=== PATIENT | male | born 1945 | race Caucasian/White ===

== ENCOUNTER 2017-02-23 10:03 | Day surgery (SDC) | payer MEDICARE ==
[~2017-02-23] VITALS: Ht 172.7 cm; Wt 64.5 kg
[~2017-02-23 10:03] MED LIST: QUIN20 PO; [UNRECOGNIZED DRUG - CODE] PO
[2017-02-23 10:26] VITALS: BP 134/82; PULSE 63; RESP 20; TEMP 97.7; O2SAT 98
[2017-02-23] MEDS ORDERED: TAMS0.4C4 PO (10:35)
[2017-02-23] MEDS ORDERED: OXYC-259 PO (10:35)
[2017-02-23] MEDS ORDERED: CHOL100025 CHEW (10:35)
[2017-02-23] MEDS ORDERED: STOO100C (10:35)
[2017-02-23] MEDS ORDERED: VITA10004 PO (10:35)
[2017-02-23] MEDS ORDERED: [UNRECOGNIZED DRUG - CODE] (10:35)
[2017-02-23] MEDS ORDERED: BICA50TA PO (10:35)
[2017-02-23] MEDS ORDERED: BUPR150T12 PO (10:35)
[2017-02-23] MEDS ORDERED: OXYC1CAP PO (10:35)
[2017-02-23] MEDS ORDERED: LUMI0.01 EACH EYE (10:35)
[2017-02-23] MEDS ORDERED: TELM1TAB56 PO (10:35)
[2017-02-23] MEDS ORDERED: VIRE300T2 PO (10:35)
[2017-02-23] MEDS ORDERED: CALC500T17 PO (10:35)
[2017-02-23] MEDS ORDERED: LIDOCAINE 1%/EPINEPHrine 1:100,000 SOLN 20 ML VIAL ONE (11:46)
[2017-02-23] MEDS ORDERED: MIDAZOLAM HCL 5 MG/5 ML VIAL ONE (12:31)
[2017-02-23] MEDS ORDERED: fentaNYL CITRATE 250 MCG/5 ML AMP ONE (12:31)
[2017-02-23 13:20] VITALS: BP 109/58; PULSE 55; RESP 16; TEMP 98; O2SAT 98
[2017-02-23 13:35] VITALS: BP 115/67; PULSE 55; RESP 16; O2SAT 97
[2017-02-23 13:50] VITALS: BP 104/58; PULSE 53; RESP 18; O2SAT 94
[2017-02-23 14:20] VITALS: BP 106/64; PULSE 53; RESP 18; O2SAT 93
--- NOTE | 2017-02-23 14:43 | RADRPT ---
EXAM DATE/TIME: 02/23/2017 12:35 [place] COMPARISON: No previous studies available for comparison. The patient's outside examinations were reviewed. INDICATIONS : Pelvic bone lesion, history of prostate cancer. SEDATION TIME: 30 minutes BIOPSY SITE: Left pelvis MEDICATION(S): 1.) 3 mg midazolam (Versed) IV 2.) 150 mcg fentanyl (Sublimaze) IV DEVICE(S): 1.) Bone biopsy needle 10ga MEDICAL HISTORY : Carcinoma, prostate. Metastatic, bone. SURGICAL HISTORY : None. ENCOUNTER: Initial ACUITY: 1 day PAIN SCORE: 0/10 LOCATION: pelvis A total of two core specimen(s) were obtained and sent to the laboratory for pathologic evaluation. PROCEDURE: 1. CT guided bone deep biopsy. 2. Conscious sedation with continuous EKG and oximetry monitoring. Prior to the procedure informed consent was obtained. The patient's prior outside imaging studies wer e reviewed. Using automated exposure control and adjustment of the mA and/or kV according to patient size, radiat ion dose was kept as low as reasonably achievable to obtain optimal diagnostic quality images. The site was prepped in a sterile fashion. Full sterile technique was used, including cap, mask, zack rile gloves and gown and a large sterile sheet. Hand hygiene and 2% chlorhexidine and/or betadine/al cohol prep was utilized per protocol for cutaneous antisepsis. The skin and subcutaneous tissues wer e infiltrated with local anesthetic solution. With CT guidance the left iliac bone sclerotic lesion was localized. Biopsy was performed using the p rescribed needle as above. Adequate hemostasis was obtained with compression at the puncture site. The patient tolerated the procedure well and there were no complications. The patient was returned to the Radiology Outpatient Unit in stable condition. CONCLUSION: Uncomplicated CT guided core biopsy of a sclerotic lesion in the left posterior iliac bone. Joe Parham MD on February 23, 2017 at 14:41 Board Certified Radiologist. This report was verified electronically.
[2017-02-23 15:20] VITALS: BP 106/64; PULSE 60; RESP 16; O2SAT 98
== END 2017-02-23 15:25 | disposition home or self-care (01) ==
LOC: HRAD 10:03 → HRIP 10:07 → HRAD 15:25
PROVIDERS: ATTEND Internal Medicine Hematology & Oncology
DX: C79.51 Secondary malignant neoplasm of bone (principal); C61 Malignant neoplasm of prostate; I10 Essential (primary) hypertension
CPT/HCPCS: 20225; 77012; 88307; 88311; 88341; 88342; 99152; 99153; J2250; J3010; 88305

== ENCOUNTER 2018-07-22 10:25 | Inpatient (IN) ==
[2018-07-22] MEDS ORDERED: Sod Chloride 0.9% Inj 1,000 ML IV.SIG ONE (11:00)
--- NOTE | 2018-07-22 11:11 | ED ---
HPI General Chief complaint: Weakness Stated complaint: Fever/weakness Time Seen by Provider: 07/22/18 10:47 Source: patient and family Mode of arrival: ambulatory Limitations: no limitations History of Present Illness HPI Narrative: 73-year-old male complains of generalized malaise and weakness and fever. Patient has history of metastatic prostate cancer. Patient on chemotherapy including Xtandi and Lupron injection. Patient has intermittent hematuria. Patient self cath himself at home. Patient started having fever this morning with temperature up to 102. Patient complaining increasing generalized malaise and weakness and he felt this morning. Patient states that he has laceration to left forehead and bilateral rib pain from the fall. Patient states that he has been eating well. Patient denies any headache. Patient denies any visual change. Patient denies any neck pain. Patient complained of sharp pain bilateral rib cage area. Patient denies abdominal pain. Patient denies any nausea vomiting diarrhea. MD Complaint: generalized weakness Onset (ago): day(s) Duration: progressively worsening Location: generalized Migration: none Severity: severe Relieving factors: none Exacerbating factors: none Associated symptoms: fever/chills Related Data Home Medications Medication Instructions Recorded Confirmed bimatoprost [Lumigan] 1 drp OPHTHALMIC (EYE) QPM 07/22/18 07/22/18 bupropion HCl 150 mg PO QAM 07/22/18 07/22/18 denosumab 120 mg SUB-Q Q4W 07/22/18 07/22/18 diazepam [Valium] 5 mg PO DAILY PRN 07/22/18 07/22/18 enzalutamide 160 mg PO DAILY 07/22/18 07/22/18 gabapentin 300 mg PO TID 07/22/18 07/22/18 glucosamine-chondroitin [Osteo 2 tab PO DAILY 07/22/18 07/22/18 Bi-Flex] leuprolide (3 month) 0 mg IM [id number] 07/22/18 lubiprostone [Amitiza] 24 mcg PO BID 07/22/18 07/22/18 oxycodone 5 mg PO Q4-6H 07/22/18 07/22/18 oxycodone [OxyContin] 10 mg PO Q12H 07/22/18 07/22/18 solifenacin [Vesicare] 10 mg PO DAILY 07/22/18 07/22/18 telmisartan [Micardis] 80 mg PO DAILY 07/22/18 07/22/18 tenofovir disoproxil fumarate 300 mg PO EVERY OTHER DAY 07/22/18 07/22/18 [Viread] Allergies Allergy/AdvReac Type Severity Reaction Status Date / Time morphine Allergy Severe MORPHINE Verified 07/22/18 11:48 ALLERGY ADDED 12/19/07 @1500 - N/V Review of Systems ROS: all other systems reviewed are negative [facility] Medical History Medical History Bone cancer (Acute) FH: cholecystectomy (Acute) Hep B w/ coma, chronic, w/o delt (Acute) Hypertension (Acute) Kidney disease (Acute) Prostate cancer (Acute) Surgical History Surgical History S/P hip replacement (Acute) Social History Social History Substance History: No History of Abuse Smoking Status: Former smoker Tobacco Type: Cigarettes How Often Do You Have a Drink Containing Alcohol: Never Recent Travel in [facility] within the Last 8 Weeks: No Recent Out of Country Travel within the Last 8 Weeks: No Exam Narrative Exam Narrative: GENERAL: Well-nourished, well-developed patient. SKIN: Focused skin assessment warm/dry. HEAD: Normocephalic. 1.5 cm laceration above left eyebrow. No active bleeding. EYES: No scleral icterus. No injection or drainage. NECK: Supple, trachea midline. No JVD or lymphadenopathy. CARDIOVASCULAR: Regular rate and rhythm without murmurs, gallops, or rubs. RESPIRATORY: Breath sounds equal bilaterally. No accessory muscle use. GASTROINTESTINAL: Abdomen soft, non-tender, nondistended. MUSCULOSKELETAL: Bilateral chest wall pain on palpation. No crepitus no deformity noted. Breath sounds equal bilaterally. BACK: Nontender without obvious deformity. No CVA tenderness. Course Initial Documented Vital Signs Temperature 99.3 F 07/22/18 10:28 Pulse Rate 81 07/22/18 10:28 Respiratory Rate 20 07/22/18 10:28 Blood Pressure 110/54 L 07/22/18 10:28 Pulse Oximetry 95 07/22/18 10:28 Last Documented Vital Signs Temperature 99.3 F 07/22/18 10:28 Pulse Rate 81 07/22/18 11:24 Respiratory Rate 16 07/22/18 11:24 Blood Pressure 106/55 L 07/22/18 11:24 Pulse Oximetry 98 07/22/18 11:24 Medical Decision Making MDM Narrative Medical decision making narrative: 73-year-old male with generalized malaise and weakness. Patient has history of metastatic prostate cancer. Patient had fever this morning and failed this morning. Normal saline solution 1 L IV bolus. Cefepime 1 g IV. Calcium gluconate 1 g IV given. Medical Screen Exam Complete: Yes Emergency Medical Condition: Yes Differential Diagnosis Differential Diagnosis: Differential diagnosis including viral syndrome, dehydration, electrolyte imbalance, pneumonia, UTI, sepsis. Lab Data Lab results reviewed: Yes I reviewed the patient's lab results. Result diagrams: 07/22/18 11:16 07/22/18 11:16 Lab Results 07/22/18 07/22/18 07/22/18 Range/Units 11:16 11:16 11:16 WBC 8.0 (4.0-11.0) th/mm3 RBC 2.75 L (4.50-5.90) mil/mm3 Hgb 8.2 L (13.0-17.0) gm/dL Hct 25.3 L (39.0-51.0) % MCV 92.2 (80.0-100.0) fL MCH 29.8 (27.0-34.0) pg MCHC 32.3 (32.0-36.0) % RDW 16.5 (11.6-17.2) % Plt Count 431 (150-450) th/mm3 MPV 6.5 L (7.0-11.0) fL Neut % (Auto) 76.5 H (16.0-70.0) % Lymph % (Auto) 9.5 (9.0-44.0) % [place] % (Auto) 12.8 H (0.0-8.0) % Eos % (Auto) 0.3 (0.0-4.0) % Baso % (Auto) 0.9 (0.0-2.0) % Neut # (Auto) 6.1 (1.8-7.7) th/mm3 Lymph # (Auto) 0.8 L (1.0-4.8) th/mm3 [place] # (Auto) 1.0 H (0.0-0.9) th/mm3 Eos # (Auto) 0.0 (0.0-0.4) th/mm3 Baso # (Auto) 0.1 (0.0-0.2) th/mm3 WBC Differential . Differential Comment Auto diff final PT 11.4 (9.8-11.6) sec INR 1.1 Ratio Sodium 144 (136-145) meq/L Potassium 4.4 (3.5-5.1) meq/L Chloride 109 H (98-107) meq/L Carbon Dioxide 25.1 (21.0-32.0) meq/L Anion Gap 10 (5-15) meq/L BUN 19 H (7-18) mg/dL Creatinine 2.08 H (0.60-1.30) mg/dL Estimated GFR 31 L (>89) mL/min Random Glucose 118 H (74-106) mg/dL Lactic Acid (0.4-2.0) mmol/L Calcium 7.0 L* (8.5-10.1) mg/dL Prot Corrected Calcium 7.1 L* (8.5-10.1) mg/dL Total Bilirubin 0.4 (0.2-1.0) mg/dL AST 21 (15-37) U/L ALT 10 L (12-78) U/L Alkaline Phosphatase 92 (45-117) U/L Total Creatine Kinase 93 (39-308) U/L Total Protein 7.0 (6.4-8.2) g/dL Albumin 2.5 L (3.4-5.0) g/dL TSH 1.760 (0.358-3.740) uIU/mL Urine Color (Yellw/Straw) Urine Clarity (Clear) Urine pH (5.0-8.5) Ur Specific [place] (1.002-1.035) Urine Protein (Neg-Trace) mg/dL Urine Glucose (UA) (Negative) mg/dL Urine Ketones (Negative) mg/dL Urine Occult Blood (Negative) Urine Nitrate (Negative) Urine Bilirubin (Negative) Urine Urobilinogen (Less than 2) mg/dL Ur Leukocyte Esterase (Negative) Urine RBC (0-3) /hpf Urine WBC (0-5) /hpf Urine Bacteria (None) /hpf Urine Mucus (Occasional) /lpf Micro UA Comment Ur Microscopic Review Urine Culture Comments 07/22/18 07/22/18 Range/Units 11:16 11:49 WBC (4.0-11.0) th/mm3 RBC (4.50-5.90) mil/mm3 Hgb (13.0-17.0) gm/dL Hct (39.0-51.0) % MCV (80.0-100.0) fL MCH (27.0-34.0) pg MCHC (32.0-36.0) % RDW (11.6-17.2) % Plt Count (150-450) th/mm3 MPV (7.0-11.0) fL Neut % (Auto) (16.0-70.0) % Lymph % (Auto) (9.0-44.0) % [place] % (Auto) (0.0-8.0) % Eos % (Auto) (0.0-4.0) % Baso % (Auto) (0.0-2.0) % Neut # (Auto) (1.8-7.7) th/mm3 Lymph # (Auto) (1.0-4.8) th/mm3 [place] # (Auto) (0.0-0.9) th/mm3 Eos # (Auto) (0.0-0.4) th/mm3 Baso # (Auto) (0.0-0.2) th/mm3 WBC Differential Differential Comment PT (9.8-11.6) sec INR Ratio Sodium (136-145) meq/L Potassium (3.5-5.1) meq/L Chloride (98-107) meq/L Carbon Dioxide (21.0-32.0) meq/L Anion Gap (5-15) meq/L BUN (7-18) mg/dL Creatinine (0.60-1.30) mg/dL Estimated GFR (>89) mL/min Random Glucose (74-106) mg/dL Lactic Acid 0.9 (0.4-2.0) mmol/L Calcium (8.5-10.1) mg/dL Prot Corrected Calcium (8.5-10.1) mg/dL Total Bilirubin (0.2-1.0) mg/dL AST (15-37) U/L ALT (12-78) U/L Alkaline Phosphatase (45-117) U/L Total Creatine Kinase (39-308) U/L Total Protein (6.4-8.2) g/dL Albumin (3.4-5.0) g/dL TSH (0.358-3.740) uIU/mL Urine Color Yellow (Yellw/Straw) Urine Clarity Cloudy H (Clear) Urine pH 6.0 (5.0-8.5) Ur Specific [place] 1.011 (1.002-1.035) Urine Protein 100 H (Neg-Trace) mg/dL Urine Glucose (UA) Negative (Negative) mg/dL Urine Ketones Negative (Negative) mg/dL Urine Occult Blood Large H (Negative) Urine Nitrate Negative (Negative) Urine Bilirubin Negative (Negative) Urine Urobilinogen Less than 2 (Less than 2) mg/dL Ur Leukocyte Esterase Small H (Negative) Urine RBC (0-3) /hpf Urine WBC 31 H (0-5) /hpf Urine Bacteria Few H (None) /hpf Urine Mucus Few H (Occasional) /lpf Micro UA Comment Cath-culture ind Ur Microscopic Review Not Reportable Urine Culture Comments Cath-cult indicated Imaging Data Attestation: I personally reviewed and interpreted this imaging study as follows : Radiologist's impression: Chest X-Ray 07/22/18 11:00 CONCLUSION: The lungs are grossly clear. Sclerotic metastatic disease. Discharge Plan Discharge Disposition Patient Disposition: 30 Still Patient Discharge Details Diagnosis: Acute UTI, Prostate cancer metastatic to bone, Forehead laceration, Chest wall contusion Physicians Team ED Provider: Rhett Tellez Rxs /Orders / Referrals /Forms Prescriptions: No Action leuprolide (3 month) 11.25 mg Syringe Kit IM [id number] RF: 0 telmisartan [Micardis] 80 mg Tablet 80 mg PO DAILY RF: 0 oxycodone 5 mg Capsule 5 mg PO Q4-6H RF: 0 gabapentin 300 mg Capsule 300 mg PO TID RF: 0 tenofovir disoproxil fumarate [Viread] 300 mg Tablet 300 mg PO EVERY OTHER DAY RF: 0 diazepam [Valium] 5 mg Tablet 5 mg PO DAILY PRN (Reason: Anxiety) RF: 0 glucosamine-chondroitin [Osteo Bi-Flex] 250-200 mg Tablet 2 tab PO DAILY RF: 0 bupropion HCl 150 mg Tablet Extended Release 24 Hr 150 mg PO QAM RF: 0 solifenacin [Vesicare] 10 mg Tablet 10 mg PO DAILY RF: 0 lubiprostone [Amitiza] 24 mcg Capsule 24 mcg PO BID RF: 0 bimatoprost [Lumigan] 0.01 % Drops 1 drp OPHTHALMIC (EYE) QPM RF: 0 denosumab 120 mg/1.7 mL (70 mg/mL) Solution 120 mg SUB-Q Q4W RF: 0 enzalutamide 40 mg Capsule 160 mg PO DAILY RF: 0 oxycodone [OxyContin] 10 mg Tablet,Oral Only,Ext.Rel.12 Hr 10 mg PO Q12H RF: 0 Discharge Interventions Interventions: Vital Signs Last Done: 07/22/18 11:24 Status ED Status: With Doctor
[2018-07-22 11:35] LABS: Baso # (Auto) 0.1 th/mm3 (0.0-0.2); Baso % (Auto) 0.9 % (0.0-2.0); Eos % (Auto) 0.3 % (0.0-4.0); Hematocrit 25.3 % (39.0-51.0); Hemoglobin 8.2 gm/dL (13.0-17.0); Lymph # (Auto) 0.8 th/mm3 (1.0-4.8); Lymph % (Auto) 9.5 % (9.0-44.0); Mean Corpuscular HGB Conc 32.3 % (32.0-36.0); Mean Corpuscular Hemoglobin 29.8 pg (27.0-34.0); Mean Corpuscular Volume 92.2 fL (80.0-100.0); Mean Platelet Volume 6.5 fL (7.0-11.0); Mono % (Auto) 12.8 % (0.0-8.0); Neut # (Auto) 6.1 th/mm3 (1.8-7.7); Neut % (Auto) 76.5 % (16.0-70.0); Platelet Count 431 th/mm3 (150-450); Red Blood Count 2.75 mil/mm3 (4.50-5.90); Red Cell Distribution Width 16.5 % (11.6-17.2)
[2018-07-22 11:44] LABS: INR 1.1 Ratio; Prothrombin Time 11.4 sec (9.8-11.6)
--- NOTE | 2018-07-22 12:06 | XR ---
EXAM DATE: 07/22/2018 11:58 AM EDT AGE/SEX: 73 years / Male INDICATIONS: Left lower chest pain since falling this morning. CLINICAL DATA: This is the patient's initial encounter. Patient reports that signs and symptoms have been present for 1 day and indicates a pain score of 7/10. MEDICAL/SURGICAL HISTORY: . Pelvic bone lesion, history of prostate cancer. . COMPARISON: No prior exams available for comparison. FINDINGS: A single AP view of the chest demonstrates the lungs to be symmetrically aerated without evidence of mass, infiltrate or effusion. The cardiomediastinal contours are unremarkable. Sclerosis involving m ultiple ribs, the left coracoid process in the right humeral neck concerning for metastatic disease i n a patient with known prostate cancer. CONCLUSION: The lungs are grossly clear. Sclerotic metastatic disease. Electronically signed by: Cb Cortes MD 07/22/2018 12:05 PM EDT
[2018-07-22 12:47] LABS: Albumin 2.5 g/dL (3.4-5.0); Carbon Dioxide 25.1 meq/L (21.0-32.0); Thyroid Stimulating Hormone 1.76 uIU/mL (0.358-3.740)
[2018-07-22 12:47] LABS: Bacteria,Urine Few /hpf; Bilirubin,Urine Negative (Negative); Clarity,Urine Cloudy (Clear); Color,Urine Yellow (Yellw/Straw); Glucose,Urine (UA) Negative (Negative); Leukocyte Esterase,Urine Small (Negative); Mucus,Urine Few /lpf (Occasional); Nitrite,Urine Negative (Negative); Specific Gravity,Urine 1.011 (1.002-1.035)
[2018-07-22 12:57] LABS: Potassium 4.4 meq/L (3.5-5.1)
[2018-07-22] MEDS ORDERED: Calcium Gluconate Inj 1 GM in Dextrose 5% in Water Inj 100 ML IV.SIG ONE ×2 (13:17)
--- NOTE | 2018-07-22 14:45 | P.HPIM ---
History of Present Illness Primary Care Physician: Marcelo Cote MD Chief Complaint: generalized weakness History of Present Illness: patient is a 73 y/o male with history of prostate cancer, hypertension who presented to ER with generalized weakness. information was obtained from the family at the bedside. he's under the care of and currently receiving chemotherapy. reportedly he had some hematuria few weeks ago. he was seen by his urologist and had palacios catheter for about a week. hematuria resolved and he started to do intermittent self-catheterization. he started to have intermittent gross hematuria about a week ago again. he's had some suprapubic pain. he had worsening generalized weakness and reportedly had a fall last night. he had a fever this morning and had some chills over night.he had on and off confusional episodes over the past couple of days. Inpatient Certification: I certify that the inpatient services were ordered in accordance with Medicare regulations governing the order. This includes certification that hospital inpatient services are reasonable and necessary and in the case of services not specified as inpatient-only under 42 CFR 419.22(n), that they are appropriately provided as inpatient services in accordance to with the 2-midnight benchmark under 43 CFR 412.3(e) Estimated Total Length of Stay (Days): 2 Plans for Post Hospital Care: Home Review of Systems All other systems reviewed negative except as stated in HPI PMFSH - History History Provided By: Patient - Medical History Medical History: Medical History (Last Reviewed 07/22/18 @ 14:36 by Johnie Lawson MD) Bone cancer FH: cholecystectomy Hep B w/ coma, chronic, w/o delt Hypertension Kidney disease Prostate cancer - Surgical History Surgical History: Surgical History (Last Reviewed 07/22/18 @ 14:36 by Johnie Lawson MD) S/P hip replacement - Family History Family History: Family History (Last Reviewed 07/22/18 @ 14:36 by Johnie Lawson MD) Other Family history of cancer - Tobacco History Smoking Status: Former smoker Tobacco Type: Cigarettes - Alcohol History How Often Do You Have a Drink Containing Alcohol: Never - Substance Use History Substance History: No History of Abuse - Travel History Recent Travel in the [place] Within the Last 8 Weeks: No Recent Travel Out of the Country Within the Last 8 Weeks: No - Immunization History Tetanus Immunization: Unsure Hx Influenza Vaccine This Season: Yes Medications and Allergies Active Medications: Active Medications Acetaminophen (Tylenol) 650 mg PO Q4H PRN PRN Reason: fever/pain Bupropion HCl (Wellbutrin Xl) 150 mg PO DAILY [place] Diazepam (Valium) 5 mg PO DAILY PRN PRN Reason: Anxiety Gabapentin (Neurontin) 300 mg PO TID [facility] Sodium Chloride (Ns Inj) 1,000 mls @ 84 mls/hr IV.CONT .[id number] [place] Cefepime HCl 1,000 mg/ Sodium (Chloride) 100 mls @ 200 mls/hr IV.SIG DAILY [facility] Non-Formulary Medication (Telmisartan [Micardis]) 80 mg PO DAILY [facility] Non-Formulary Medication (Bimatoprost [Lumigan]) 1 drp EACH EYE QPM [facility] Non-Formulary Medication (Lubiprostone [Amitiza]) 24 mcg PO BID [facility] Oxycodone HCl (Oxycontin Cr) 10 mg PO Q12H [facility] Tenofovir Disoproxil Fumarate (Viread) 300 mg PO EVERY OTHER DAY [facility] Allergies Allergy/AdvReac Type Severity Reaction Status Date / Time morphine Allergy Severe MORPHINE Verified 07/22/18 11:48 ALLERGY ADDED 12/19/07 @1500 - N/V Home Medications Medication Instructions Recorded Confirmed Type bimatoprost [Lumigan] 1 drp OPHTHALMIC (EYE) QPM 07/22/18 07/22/18 History bupropion HCl 150 mg PO QAM 07/22/18 07/22/18 History denosumab 120 mg SUB-Q Q4W 07/22/18 07/22/18 History diazepam [Valium] 5 mg PO DAILY PRN 07/22/18 07/22/18 History enzalutamide 160 mg PO DAILY 07/22/18 07/22/18 History gabapentin 300 mg PO TID 07/22/18 07/22/18 History glucosamine-chondroitin [Osteo 2 tab PO DAILY 07/22/18 07/22/18 History Bi-Flex] leuprolide (3 month) 0 mg IM [id number] 07/22/18 History lubiprostone [Amitiza] 24 mcg PO BID 07/22/18 07/22/18 History oxycodone 5 mg PO Q4-6H 07/22/18 07/22/18 History oxycodone [OxyContin] 10 mg PO Q12H 07/22/18 07/22/18 History solifenacin [Vesicare] 10 mg PO DAILY 07/22/18 07/22/18 History telmisartan [Micardis] 80 mg PO DAILY 07/22/18 07/22/18 History tenofovir disoproxil fumarate 300 mg PO EVERY OTHER DAY 07/22/18 07/22/18 History [Viread] Exam Vital signs: Vital Signs 07/22/18 10:28 07/22/18 11:24 Temperature 99.3 F Pulse Rate 81 81 Respiratory Rate 20 16 Blood Pressure 110/54 L 106/55 L Pulse Oximetry 95 95 Intake & Output 07/21/18 07/22/18 07/22/18 18:59 06:59 18:59 Weight 81.647 kg - Constitutional no acute distress - Routine HEENT Exam Head: Present: laceration (left forehead) - Routine Neck Exam Present: full ROM - Routine Respiratory Exam Present: CTA bilaterally - Routine Cardiovascular Exam Present: RRR - Routine Abdominal Exam Present: soft - Routine Extremities Exam Comments: no pedal edema. - Routine Neurological Exam Present: alert, oriented X3 Results - Labs CBC & Chem 7: 07/22/18 11:16 07/22/18 11:16 Labs: Short CBC 07/22/18 Range/Units 11:16 WBC 8.0 (4.0-11.0) th/mm3 Hgb 8.2 L (13.0-17.0) gm/dL Hct 25.3 L (39.0-51.0) % Plt Count 431 (150-450) th/mm3 BMP 07/22/18 11:16 Sodium 144 Potassium 4.4 Chloride 109 H Carbon Dioxide 25.1 BUN 19 H Creatinine 2.08 H Calcium 7.0 L* Cardiac Enzymes 07/22/18 Range/Units 11:16 Total Creatine Kinase 93 (39-308) U/L Liver Function 07/22/18 Range/Units 11:16 Total Bilirubin 0.4 (0.2-1.0) mg/dL AST 21 (15-37) U/L ALT 10 L (12-78) U/L Alkaline Phosphatase 92 (45-117) U/L Albumin 2.5 L (3.4-5.0) g/dL Urine 07/22/18 Range/Units 11:49 Urine Color Yellow (Yellw/Straw) Urine Clarity Cloudy H (Clear) Urine pH 6.0 (5.0-8.5) Ur Specific [place] 1.011 (1.002-1.035) Urine Protein 100 H (Neg-Trace) mg/dL Urine Glucose (UA) Negative (Negative) mg/dL - Imaging Impressions Chest X-Ray 07/22/18 11:00 CONCLUSION: The lungs are grossly clear. Sclerotic metastatic disease. Caprini VTE Risk Assessment Caprini VTE Risk Assessment: Moderate/High Risk (score >= 2) Caprini Risk Assessment Model: Point Value = 1 Point Value = 2 Point Value = 3 Point Value = 5 Age 41-60 Minor surgery BMI > 25 kg/m2 Swollen legs Varicose veins or History of unexplained or recurrent spontaneous Oral contraceptives or hormone replacement Sepsis (< 1 month) Serious lung disease, including pneumonia (< 1 month) Abnormal pulmonary function Acute myocardial infarction Congestive heart failure (< 1 month) History of inflammatory bowel disease Medical patient at bed rest Age 61-74 Arthroscopic surgery Major open surgery (> 45 min) Laparoscopic surgery (> 45 min) Malignancy Confined to bed (> 72 hours) Immobilizing plaster cast Central venous access Age >= 75 History of VTE Family history of VTE Factor V Leiden Prothrombin [id number] Lupus anticoagulant Anticardiolipin antibodies Elevated serum homocysteine Heparin-induced thrombocytopenia Other congenital or acquired thrombophilia Stroke (< 1 month) Elective arthroplasty Hip, pelvis, or leg fracture Acute spinal cord injury (< 1 month) Prophylaxis Regimen: Total Risk Factor Score Risk Level Prophylaxis Regimen 0-1 Low Early ambulation 2 Moderate Order ONE of the following: *Sequential Compression Device (SCD) *Heparin 5000 units SQ BID 3-4 Higher Order ONE of the following medications: *Heparin 5000 units SQ TID *Enoxaparin/Lovenox 40 mg SQ daily (WT < 150 kg, CrCl > 30 mL/min) *Enoxaparin/Lovenox 30 mg SQ daily (WT < 150 kg, CrCl > 10-29 mL/min) *Enoxaparin/Lovenox 30 mg SQ BID (WT < 150 kg, CrCl > 30 mL/min) AND/OR *Sequential Compression Device (SCD) 5 or more Highest Order ONE of the following medications: *Heparin 5000 units SQ TID (Preferred with Epidurals) *Enoxaparin/Lovenox 40 mg SQ daily (WT < 150 kg, CrCl > 30 mL/min) *Enoxaparin/Lovenox 30 mg SQ daily (WT < 150 kg, CrCl > 10-29 mL/min) *Enoxaparin/Lovenox 30 mg SQ BID (WT < 150 kg, CrCl > 30 mL/min) AND *Sequential Compression Device (SCD) Assessment and Plan - Plan A/P - UTI/ Hematuria with history of prostate cancer continue with broad-spectrum IV antibiotics- hold antineoplastic agents for now- will follow the blood cultures and adjust the antibiotic regimen accordingly. will insert palacios cath for now. -Hypocalcemia; received IV calcium in ER- will monitor. -generalized weakness/ fall with laceration on left forehead; routine wound care -consult PT. -metastatic prostate cancer- continue pain control with long / and short-acting narcotics. -hypertension; resume home meds. -anemia- due to chemo- will monitor. -CKD- start on gentle IV hydration and repeat BMP tomorrow. -DVT prophylaxis with subq Heparin. Discussed Condition With: ER physician, the patient and family.
[2018-07-22] MEDS ORDERED: oxyCODONE 10 MG Controlled Release Tablet PO SCH (15:00)
[2018-07-22] MEDS: buPROPion 150 MG XL 24 HR Tablet PO SCH (15:28)
[2018-07-22] MEDS: Sod Chloride 0.9% Inj 1,000 ML IV.CONT SCH (18:16)
[2018-07-22] MEDS ORDERED: Acetaminophen 325 MG Tablet PO PRN (19:00)
[2018-07-22] MEDS: Gabapentin 300 MG Capsule PO SCH (20:44)
[2018-07-22] MEDS: Heparin - SQ 10,000 UNITS/ML Vial SQ SCH (20:44)
[2018-07-22] MEDS: Latanoprost 0.005% Opth Drops 2.5 ML Bottle EACH EYE SCH (20:49)
[2018-07-22] MEDS ORDERED: LUBIPROSTONE 24 MCG PO SCH (21:00)
[2018-07-22] MEDS: oxyCODONE 10 MG Controlled Release Tablet PO SCH (22:39)
[2018-07-23] MEDS: Acetaminophen 325 MG Tablet PO PRN ×2 (03:40→15:56)
[2018-07-23] MEDS: Sod Chloride 0.9% Inj 1,000 ML IV.CONT SCH ×2 (03:45→14:17)
[2018-07-23 08:06] LABS: Hematocrit 24.2 % (39.0-51.0); Hemoglobin 7.9 gm/dL (13.0-17.0); Mean Corpuscular HGB Conc 32.6 % (32.0-36.0); Mean Corpuscular Hemoglobin 29.9 pg (27.0-34.0); Mean Corpuscular Volume 91.9 fL (80.0-100.0); Mean Platelet Volume 6.4 fL (7.0-11.0); Platelet Count 384 th/mm3 (150-450); Red Blood Count 2.63 mil/mm3 (4.50-5.90); Red Cell Distribution Width 15.9 % (11.6-17.2)
[2018-07-23] MEDS: Heparin - SQ 10,000 UNITS/ML Vial SQ SCH ×2 (08:22→20:41)
[2018-07-23] MEDS: buPROPion 150 MG XL 24 HR Tablet PO SCH (08:22)
[2018-07-23] MEDS: Gabapentin 300 MG Capsule PO SCH ×3 (08:22→20:41)
[2018-07-23 08:39] LABS: Calcium 6.6 mg/dL (8.5-10.1); Carbon Dioxide 24.4 meq/L (21.0-32.0); Potassium 3.7 meq/L (3.5-5.1)
[2018-07-23 08:55] LABS: Total Protein 6.1 g/dL (6.4-8.2)
[2018-07-23] MEDS: oxyCODONE 10 MG Controlled Release Tablet PO SCH ×2 (09:29→21:00)
--- NOTE | 2018-07-23 12:28 | ECG ---
Date Performed: 07/22/2018 Time Performed: 11:56:15 PTAGE: 73 years EKG: Sinus rhythm LOW QRS VOLTAGE IN PRECORDIAL LEADS INCOMPLETE RIGHT BUNDLE BRANCH BLOCK LEFT ANTERIOR FASCICULAR BL OCK POSSIBLE ANTERIOR MYOCARDIAL INFARCTION ABNORMAL ECG PREVIOUS TRACING 12/17/2007 05.31 Since the previous tracing, no significant change noted DOCTOR: Silas Schilling Interpretating Date/Time 07/23/2018 12:28:20
--- NOTE | 2018-07-23 13:40 | P.PN ---
Subjective Interval history: t mazx 101.2 early this am seen with at bedside - patient apprently ahving fever for 2 weeks intermittentlu - persitent hematuria- -doing self intermittent cathetrization feels fatigued and tired, no energy Physical Exam Vital signs: Vital Signs 07/22/18 14:47 07/22/18 17:57 07/22/18 20:00 Temperature 98.9 F Pulse Rate 78 59 L 67 Respiratory Rate 18 16 Blood Pressure 110/70 113/56 L Pulse Oximetry 99 96 07/22/18 20:40 07/22/18 21:51 07/22/18 23:09 Temperature 98.1 F Pulse Rate 68 Respiratory Rate 18 17 16 Blood Pressure 118/63 Pulse Oximetry 96 07/23/18 00:00 07/23/18 00:35 07/23/18 03:30 Temperature 98.6 F 101.2 F H Pulse Rate 67 68 81 Respiratory Rate 17 19 Blood Pressure 130/70 145/70 H Pulse Oximetry 97 96 07/23/18 04:00 07/23/18 04:01 07/23/18 04:58 Temperature Pulse Rate 77 Respiratory Rate 16 15 Blood Pressure Pulse Oximetry 07/23/18 06:00 07/23/18 08:00 Temperature 98.1 F 99.3 F Pulse Rate 87 Respiratory Rate 18 Blood Pressure 130/71 Pulse Oximetry 99 Intake & Output 07/22/18 07/23/18 07/23/18 18:59 06:59 18:59 Intake Total 1570 / 1570 1710 / 1710 Output Total 1949 / 1949 Balance 1570 / 1570 -240 / -240 Weight 84.1 kg 85.4 kg Intake: IV 1210 / 1210 990 / 990 NS Inj 1,000 ML @ 84 mls/hr IV. 990 / 990 CONT .[id number] [facility] Rx#:[id number] Calcium Gluconate Inj 1 GM In 110 / 110 D5W Inj 100 ML @ 110 mls/hr IV. SIG ONCE ONE Rx#:[id number] Maxipime Inj 1,000 MG In NS Inj 100 / 100 100 ML @ 200 mls/hr IV.SIG ONCE ONE Rx#:[id number] NS Inj 1,000 ML @ Wide Open IV. 1000 / 1000 SIG BOLUS ONE Rx#:[id number] Oral 360 / 360 720 / 720 Output: Urine 1950 / 1950 Other: Date of Last Bowel Movement 07/21/18 07/21/18 07/21/18 Weight On Admission 83.915 kg Narrative: awake and alert, no acute distress anicteric lungs- clear regular rhythm abdomen soft, nontender extremities trace rpetibvial edema - Urinary Catheter Management Indwelling Urethral Catheter Cath placed during this visit: yes Reason for continuing: Gross Hematuria Insertion date: 07/22/18 Insertion time: 16:50 Results - Labs CBC & Chem 7: 07/24/18 06:01 07/24/18 06:01 Laboratory Results - last 24 hr 07/22/18 07/23/18 07/23/18 11:49 07:40 07:40 WBC 7.0 RBC 2.63 L Hgb 7.9 L Hct 24.2 L MCV 91.9 MCH 29.9 MCHC 32.6 RDW 15.9 Plt Count 384 MPV 6.4 L Sodium 145 Potassium 3.7 Chloride 112 H Carbon Dioxide 24.4 Anion Gap 9 BUN 18 Creatinine 1.78 H Estimated GFR 37 L Random Glucose 108 H Calcium 6.6 L* Prot Corrected Calcium 7.1 L* Total Protein 6.1 L D Urine Color Yellow Urine Clarity Cloudy H Urine pH 6.0 Ur Specific [place] 1.011 Urine Protein 100 H Urine Glucose (UA) Negative Urine Ketones Negative Urine Occult Blood Large H Urine Nitrate Negative Urine Bilirubin Negative Urine Urobilinogen Less than 2 Ur Leukocyte Esterase Small H Urine RBC Urine WBC 31 H Urine Bacteria Few H Urine Mucus Few H Micro UA Comment Cath-culture ind Urine Culture Comments Cath-cult indicated Microbiology 07/22/18 11:49 Catheterized Urine Urine Culture - Preliminary Staphylococcus coag negative 07/22/18 11:16 Blood - Peripheral Aerobic Blood Culture - Preliminary No growth in 1 day 07/22/18 11:16 Blood - Peripheral Anaerobic Blood Culture - Preliminary No growth in 1 day 07/22/18 11:00 Blood - Peripheral Aerobic Blood Culture - Preliminary No growth in 1 day 07/22/18 11:00 Blood - Peripheral Anaerobic Blood Culture - Preliminary No growth in 1 day Assessment and Plan - Plan 73 years old male UTI/ Persistent Hematuria with history of metastatic prostate cancer- cathetr related - t max 102 - per family peristent hematuria- with clots- had cyustoscopy int he past - get renal ultrasound continue with broad-spectrum IV antibiotics- hold antineoplastic agents for now- will follow the blood cultures and adjust the antibiotic regimen accordingly. - palacios placed - consult his oncologist in am- Dr. Gant - Urology consult -with persitent hematuria- and patient wants another opinion - keep palacios for now Generalized weakness Anemia- symptomatic- multifactorial- acute on chronic -get iron studies - give 1 unit today - consult Dr. gant in am GENI- pre renal r/o udnerlying CKI from prostate cancer - continue gentle hydration - ff BMP - [facility] bladder, kidney US Hypocalcemia; received IV calcium in ER- will monitor. -generalized weakness/ fall with laceration on left forehead; routine wound care -consult PT. -hypertension; resume home meds. Discussed Condition With:
[2018-07-23 16:40] LABS: % Iron Saturation 7.3 % (20-50)
--- NOTE | 2018-07-23 17:22 | US ---
EXAM DATE: 07/23/2018 5:10 PM EDT AGE/SEX: 73 years / Male INDICATIONS: Hematuria with urinary tract infection. CLINICAL DATA: This is the patient's initial encounter. Patient reports that signs and symptoms have been present for 4 - 6 days and indicates a pain score of 2/10. MEDICAL/SURGICAL HISTORY: Carcinoma, prostatic. Hypertension. Hepatitis B. Bone cancer. Kidn ey disease. Cholecystectomy. Hip replacement. COMPARISON: [facility], CT ABDOMEN AND PELVIS W/O CONTRAST, 02/16/2017. . MEASUREMENTS: Right Kidney:__11.3 x 5.2 x 6.2 cm Left Kidney:__9.8 x 5.6 x 5.6 cm FINDINGS: Right Kidney: Normal echotexture and cortical thickness. No mass. Mild hydronephrosis Left Kidney: Mild hydronephrosis of the left kidney. No solid mass. Bladder: Extensive debris within the bladder presumably blood. Other: None. CONCLUSION: 1. Significant debris within the bladder likely blood. Mild bilateral hydronephrosis left greater th an right. Electronically signed by: Cb Cortes MD 07/23/2018 5:20 PM EDT
[2018-07-23] MEDS: Latanoprost 0.005% Opth Drops 2.5 ML Bottle EACH EYE SCH (20:41)
[2018-07-24] MEDS: Acetaminophen 325 MG Tablet PO PRN ×2 (00:18→14:39)
[2018-07-24] MEDS: Sod Chloride 0.9% Inj 1,000 ML IV.CONT SCH ×2 (04:20→19:13)
[2018-07-24 06:48] LABS: Baso % (Auto) 0.4 % (0.0-2.0); Eos # (Auto) 0.2 th/mm3 (0.0-0.4); Eos % (Auto) 3.1 % (0.0-4.0); Hematocrit 27.2 % (39.0-51.0); Hemoglobin 8.9 gm/dL (13.0-17.0); Lymph # (Auto) 0.8 th/mm3 (1.0-4.8); Mean Corpuscular HGB Conc 32.8 % (32.0-36.0); Mean Corpuscular Hemoglobin 30.4 pg (27.0-34.0); Mean Corpuscular Volume 92.6 fL (80.0-100.0); Mean Platelet Volume 6.6 fL (7.0-11.0); Mono # (Auto) 0.7 th/mm3 (0.0-0.9); Mono % (Auto) 12.6 % (0.0-8.0); Neut # (Auto) 3.8 th/mm3 (1.8-7.7); Neut % (Auto) 69.9 % (16.0-70.0); Platelet Count 367 th/mm3 (150-450); Red Blood Count 2.93 mil/mm3 (4.50-5.90); Red Cell Distribution Width 15.8 % (11.6-17.2); White Blood Count 5.5 th/mm3 (4.0-11.0)
--- NOTE | 2018-07-24 08:06 | P.PN ---
Subjective Interval history: no complains palacios in place- draining clear yellow urine no pain complain feeling better no reported melena, black or blood stools- no bm for 3 days- yest+ flatus T max 101/9 + flatus no nausea or vomiting Physical Exam Vital signs: Vital Signs 07/23/18 16:00 07/23/18 17:02 07/23/18 20:00 Temperature 101.2 F H 99.7 F H Pulse Rate 91 H 65 Respiratory Rate 18 Blood Pressure 132/72 Pulse Oximetry 99 07/23/18 20:52 07/23/18 21:05 07/23/18 22:06 Temperature 98.2 F 98.5 F Pulse Rate 66 66 Respiratory Rate 17 18 16 Blood Pressure 114/60 118/67 Pulse Oximetry 96 98 07/23/18 22:45 07/24/18 00:00 07/24/18 00:08 Temperature 99.9 F H Pulse Rate 69 72 Respiratory Rate 16 19 Blood Pressure 126/64 Pulse Oximetry 96 07/24/18 01:22 07/24/18 03:18 07/24/18 04:14 Temperature 99.1 F Pulse Rate 60 Respiratory Rate 16 17 16 Blood Pressure 122/62 Pulse Oximetry 97 07/24/18 04:15 07/24/18 06:46 07/24/18 07:00 Temperature Pulse Rate 60 62 Respiratory Rate 15 Blood Pressure Pulse Oximetry Intake & Output 07/23/18 07/24/18 07/24/18 18:59 06:59 18:59 Intake Total 2140 / 2140 880 / 880 Output Total 1650 / 1650 1974 Balance 490 / 490 -1095 / -1095 Weight 85.3 kg Intake: IV 100 / 100 Maxipime Inj 1,000 MG In NS Inj 100 / 100 100 ML @ 200 mls/hr IV.SIG DAILY [facility] Rx#:[id number] Oral 2039 480 / 480 Intake (Blood Product) Amt 400 / 400 Rbc As-3 Leukoreduced Unit 400 / 400 [id number] Output: Urine 1650 / 1650 1974 Other: Date of Last Bowel Movement 07/21/18 07/21/18 - Urinary Catheter Management Indwelling Urethral Catheter Cath placed during this visit: yes Reason for continuing: Gross Hematuria Insertion date: 07/22/18 Insertion time: 16:50 Results - Labs CBC & Chem 7: 07/24/18 06:01 07/24/18 06:01 Laboratory Results - last 24 hr 07/22/18 07/23/18 07/23/18 11:49 07:40 07:40 WBC 7.0 RBC 2.63 L Hgb 7.9 L Hct 24.2 L MCV 91.9 MCH 29.9 MCHC 32.6 RDW 15.9 Plt Count 384 MPV 6.4 L Neut % (Auto) Lymph % (Auto) [place] % (Auto) Eos % (Auto) Baso % (Auto) Neut # (Auto) Lymph # (Auto) [place] # (Auto) Eos # (Auto) Baso # (Auto) WBC Differential Differential Comment Sodium 145 Potassium 3.7 Chloride 112 H Carbon Dioxide 24.4 Anion Gap 9 BUN 18 Creatinine 1.78 H Estimated GFR 37 L Random Glucose 108 H Calcium 6.6 L* Prot Corrected Calcium 7.1 L* Iron TIBC % Saturation Ferritin Total Protein 6.1 L D Urine Color Yellow Urine Clarity Cloudy H Urine pH 6.0 Ur Specific [place] 1.011 Urine Protein 100 H Urine Glucose (UA) Negative Urine Ketones Negative Urine Occult Blood Large H Urine Nitrate Negative Urine Bilirubin Negative Urine Urobilinogen Less than 2 Ur Leukocyte Esterase Small H Urine RBC Urine WBC 31 H Urine Bacteria Few H Urine Mucus Few H Micro UA Comment Cath-culture ind Urine Culture Comments Cath-cult indicated Blood Type Antibody Screen MTS Gel Crossmatch Bld Prod Order Comment 07/23/18 07/23/18 07/24/18 07:40 16:15 06:01 WBC 5.5 RBC 2.93 L Hgb 8.9 L Hct 27.2 L MCV 92.6 MCH 30.4 MCHC 32.8 RDW 15.8 Plt Count 367 MPV 6.6 L Neut % (Auto) 69.9 Lymph % (Auto) 14.0 [place] % (Auto) 12.6 H Eos % (Auto) 3.1 Baso % (Auto) 0.4 Neut # (Auto) 3.8 Lymph # (Auto) 0.8 L [place] # (Auto) 0.7 Eos # (Auto) 0.2 Baso # (Auto) 0.0 WBC Differential . Differential Comment Auto diff final Sodium Potassium Chloride Carbon Dioxide Anion Gap BUN Creatinine Estimated GFR Random Glucose Calcium Prot Corrected Calcium Iron 18 L TIBC 245 L % Saturation 7.3 L Ferritin 269 Total Protein Urine Color Urine Clarity Urine pH Ur Specific [place] Urine Protein Urine Glucose (UA) Urine Ketones Urine Occult Blood Urine Nitrate Urine Bilirubin Urine Urobilinogen Ur Leukocyte Esterase Urine RBC Urine WBC Urine Bacteria Urine Mucus Micro UA Comment Urine Culture Comments Blood Type A Positive Antibody Screen Negative MTS Gel Crossmatch See Detail Bld Prod Order Comment Microbiology 07/22/18 11:49 Catheterized Urine Urine Culture - Preliminary Staphylococcus coag negative 07/22/18 11:16 Blood - Peripheral Aerobic Blood Culture - Preliminary No growth in 1 day 07/22/18 11:16 Blood - Peripheral Anaerobic Blood Culture - Preliminary No growth in 1 day 07/22/18 11:00 Blood - Peripheral Aerobic Blood Culture - Preliminary No growth in 1 day 07/22/18 11:00 Blood - Peripheral Anaerobic Blood Culture - Preliminary No growth in 1 day - Imaging Impressions Abdomen/Bladder Ultrasound 07/23/18 00:00 CONCLUSION: 1. Significant debris within the bladder likely blood. Mild bilateral hydronephrosis left greater than right. Assessment and Plan - Plan 73 years old male UTI/ Persistent Hematuria with history of metastatic prostate cancer- catheter related Bilateral hydronephrosis on US- L > R with blood debris on bladder - t max 101.9 - per family persistent hematuria- with clots- had cystoscopy int he past continue with broad-spectrum IV antibiotics- hold antineoplastic agents for now- will follow the blood cultures and adjust the antibiotic regimen accordingly. - palacios placed- now draining clear urine - consult his oncologist Dr. Gant - Urology consult -with persistent hematuria- and patient wants another opinion - keep palacios for now- now draining grossly clear urine Generalized weakness - PT consult - Out of bed to chair Anemia- symptomatic- multifactorial- acute on chronic -get iron studies- suggestion of chronic disease - S/P give 1 unit 07/23 - H and H up - consult Dr. gant GENI- pre renal likely with udnerlying CKI from prostate cancer - continue gentle hydration - ff BMP - US with bilateral hydronephrosis L > R with blood debris in bladder Hypocalcemia; received IV calcium in ER- will monitor. - start Oscal 400 mg po bid - get Vit D levels generalized weakness/ fall with laceration on left forehead; routine wound care -hypertension; resume home meds. PT consult TEDs Out of bed to chair Discussed Condition With: patient
[2018-07-24 08:07] LABS: Calcium 6.7 mg/dL (8.5-10.1); Potassium 3.6 meq/L (3.5-5.1)
[2018-07-24] MEDS: Heparin - SQ 10,000 UNITS/ML Vial SQ SCH ×2 (08:26→21:19)
[2018-07-24] MEDS: buPROPion 150 MG XL 24 HR Tablet PO SCH (08:26)
[2018-07-24 08:27] LABS: Total Protein 6.3 g/dL (6.4-8.2)
[2018-07-24] MEDS: Tenofovir 300 MG Tablet PO SCH (08:27)
[2018-07-24] MEDS: Gabapentin 300 MG Capsule PO SCH ×2 (08:27→21:21)
[2018-07-24] MEDS ORDERED: Calcium Carbonate 500 MG Tablet PO SCH (09:00)
[2018-07-24] MEDS ORDERED: GLUCOSAMINE CHONDROITIN PO SCH (10:30)
[2018-07-24] MEDS ORDERED: OXYCODONE 5 MG PO SCH (10:30)
[2018-07-24] MEDS: oxyCODONE 10 MG Controlled Release Tablet PO SCH ×2 (10:43→21:20)
[2018-07-24] MEDS: Folic Acid 1 MG Tablet PO SCH (11:52)
[2018-07-24] MEDS: Docusate Sodium 100 MG Capsule PO SCH ×2 (11:52→21:21)
[2018-07-24] MEDS: Tolterodine Tartrate LA 4 MG Capsule PO SCH (14:35)
--- NOTE | 2018-07-24 15:40 | P.CONURO ---
History of Present Illness Service: Urology Consult date: 07/24/18 Requesting Physician: Fabiola Hi Reason for Consult: Hematuria Primary Care Provider: Marcelo Cote MD Chief Complaint: generalized weakness History of Present Illness: Patient is a 73 y/o male with history of metastatic to the bones prostate cancer , hypertension who presented to ER with generalized weakness. He's under the care of and currently receiving Lupron, Xtandi and Zytiga. He also had radiation to pelvic bones for mets a year ago. He reports having hematuria on / off x 6weeks with clots. Saw Dr Parmar, had cysto and was told it was ok, needs to continue f/u with his oncologist. He also has h/o urinary retention x 2years and does self cath. This hematuria started a week ago. he had worsening generalized weakness also he had a fever and chills. he had on and off confusional episodes over the past couple of days that was reported on admission. Urology consulted for hematuria. Labs are stable. Cr is 1.7. UC is positive for Staph. He is on IV antbx. 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 Currently he has palacios cath and hematuria is resolving, still passing some long clots Review of Systems All other systems reviewed negative except as stated in HPI PMFSH - History History Provided By: Patient, Significant Other - Medical History Medical History: Medical History (Last Reviewed 07/24/18 @ 16:29 by Calli Gorman MD) Bone cancer FH: cholecystectomy Hep B w/ coma, chronic, w/o delt Hypertension Kidney disease Prostate cancer - Surgical History Surgical History: Surgical History (Last Reviewed 07/24/18 @ 16:29 by Calli Gorman MD) S/P hip replacement - Family History Family History: Family History (Last Reviewed 07/24/18 @ 16:29 by Calli Gorman MD) Other Family history of cancer - Tobacco History Second Hand Smoke Exposure: No Tobacco Use In Past 30 Days: No Smoking Status: Former smoker Tobacco Type: Cigarettes - Alcohol History How Often Do You Have a Drink Containing Alcohol: 2 to 4 times a month - Substance Use History Substance History: No History of Abuse - Substance Use Type Marijuana Status: Active Route Used: Inhalation Comment: medically provided to patient for pain - Travel History Recent Travel in the [place] Within the Last 8 Weeks: No Recent Travel Out of the Country Within the Last 8 Weeks: No - Immunization History Tetanus Immunization: Unsure Hx Influenza Vaccine This Season: Yes Medications and Allergies Active Medications: Active Medications Acetaminophen (Tylenol) 650 mg PO Q4H PRN PRN Reason: fever Last Admin: 07/24/18 14:39 Dose: 650 mg Bupropion HCl (Wellbutrin Xl) 150 mg PO DAILY [facility] Last Admin: 07/24/18 08:26 Dose: 150 mg Diazepam (Valium) 5 mg PO DAILY PRN PRN Reason: Anxiety Docusate Sodium (Colace) 100 mg PO BID [facility] Last Admin: 07/24/18 11:52 Dose: 100 mg Folic Acid (Folic Acid) 1 mg PO DAILY [facility] Last Admin: 07/24/18 11:52 Dose: 1 mg Gabapentin (Neurontin) 300 mg PO BID [facility] Last Admin: 07/24/18 08:27 Dose: 300 mg Heparin Sodium (Porcine) (Heparin Inj) 5,000 units SQ Q12HR [facility] Last Admin: 07/24/18 08:26 Dose: 5,000 units Sodium Chloride (Ns Inj) 1,000 mls @ 70 mls/hr IV.CONT .[id number] [facility] Last Admin: 07/24/18 04:20 Dose: 84 mls/hr Cefepime HCl 1,000 mg/ Sodium (Chloride) 100 mls @ 200 mls/hr IV.SIG DAILY [facility] Last Infusion: 07/24/18 08:56 Dose: Infused Latanoprost (Xalatan 0.005% Opth Drops) 1 drop EACH EYE HS [facility] Last Admin: 07/23/18 20:41 Dose: 1 drop Losartan Potassium (Cozaar) 100 mg PO DAILY [facility] Last Admin: 07/24/18 08:26 Dose: 100 mg Oxycodone HCl (Roxicodone) 5 mg PO Q4H PRN PRN Reason: breakthrough pain Last Admin: 07/24/18 14:36 Dose: 5 mg Oxycodone HCl (Oxycontin Cr) 10 mg PO Q12H [facility] Last Admin: 07/24/18 10:43 Dose: 10 mg Pom: (Lubiprostone [ (Amitiza] 24 Mcg)) 0 each PO BID [facility] Tenofovir Disoproxil Fumarate (Viread) 300 mg PO EVERY OTHER DAY [facility] Last Admin: 07/24/18 08:27 Dose: 300 mg Tolterodine Tartrate (Detrol La) 4 mg PO DAILY [facility] Last Admin: 07/24/18 14:35 Dose: Not Given Allergies Allergy/AdvReac Type Severity Reaction Status Date / Time morphine Allergy Severe MORPHINE Verified 07/22/18 11:48 ALLERGY ADDED 12/19/07 @1500 - N/V Home Medications Medication Instructions Recorded Confirmed Type bimatoprost [Lumigan] 1 drp OPHTHALMIC (EYE) QPM 07/22/18 07/22/18 History bupropion HCl 150 mg PO QAM 07/22/18 07/22/18 History denosumab 120 mg SUB-Q Q4W 07/22/18 07/22/18 History diazepam [Valium] 5 mg PO DAILY PRN 07/22/18 07/22/18 History docusate sodium [Colace] 100 mg PO BID 07/22/18 07/22/18 History enzalutamide 160 mg PO DAILY 07/22/18 07/22/18 History folic acid 0.4 mg PO DAILY 07/22/18 07/22/18 History gabapentin 300 mg PO BID 07/22/18 07/22/18 History glucosamine-chondroitin [Osteo 2 tab PO DAILY 07/22/18 07/22/18 History Bi-Flex] leuprolide (3 month) 0 mg IM [id number] 07/22/18 07/22/18 History lubiprostone [Amitiza] 24 mcg PO BID 07/22/18 07/22/18 History oxycodone 5 mg PO Q4-6H 07/22/18 07/22/18 History oxycodone [OxyContin] 10 mg PO Q12H 07/22/18 07/22/18 History solifenacin [Vesicare] 10 mg PO DAILY 07/22/18 07/22/18 History telmisartan [Micardis] 80 mg PO DAILY 07/22/18 07/22/18 History tenofovir disoproxil fumarate 300 mg PO EVERY OTHER DAY 07/22/18 07/22/18 History [Viread] Physical Exam Vital Signs - 24 hr 07/23/18 16:00 07/23/18 17:02 07/23/18 20:00 Temperature 101.2 F H 99.7 F H Pulse Rate 91 H 65 Respiratory Rate 18 Blood Pressure 132/72 Pulse Oximetry 99 07/23/18 20:52 07/23/18 21:05 07/23/18 22:06 Temperature 98.2 F 98.5 F Pulse Rate 66 66 Respiratory Rate 17 18 16 Blood Pressure 114/60 118/67 Pulse Oximetry 96 98 07/23/18 22:45 07/24/18 00:00 07/24/18 00:08 Temperature 99.9 F H Pulse Rate 69 72 Respiratory Rate 16 19 Blood Pressure 126/64 Pulse Oximetry 96 07/24/18 01:22 07/24/18 03:18 07/24/18 04:14 Temperature 99.1 F Pulse Rate 60 Respiratory Rate 16 17 16 Blood Pressure 122/62 Pulse Oximetry 97 07/24/18 04:15 07/24/18 06:46 07/24/18 07:00 Temperature Pulse Rate 60 62 Respiratory Rate 15 Blood Pressure Pulse Oximetry 07/24/18 08:19 07/24/18 11:46 07/24/18 11:52 Temperature 98.9 F 98.8 F Pulse Rate 72 76 Respiratory Rate 18 18 18 Blood Pressure 123/83 127/74 Pulse Oximetry 96 99 07/24/18 14:42 07/24/18 15:17 Temperature 100.4 F H 101.7 F H Pulse Rate 79 Respiratory Rate 18 Blood Pressure 126/62 Pulse Oximetry 93 L Physical Exam: GENERAL: This is a well-nourished, well-developed patient, in no apparent distress. HEAD: Atraumatic. Normocephalic. CARDIOVASCULAR: Regular rate and rhythm without murmurs, gallops, or rubs. RESPIRATORY: Clear to auscultation. Breath sounds equal bilaterally. No wheezes , rales, or rhonchi. GASTROINTESTINAL: Abdomen soft, non-tender GENITOURINARY: Bladder not distended. Palacios cath in place, Urine is yellow color NEUROLOGICAL: Awake and alert. Laboratory Results - last 24 hr 07/23/18 07/23/18 07/24/18 07:40 16:15 06:01 WBC 5.5 RBC 2.93 L Hgb 8.9 L Hct 27.2 L MCV 92.6 MCH 30.4 MCHC 32.8 RDW 15.8 Plt Count 367 MPV 6.6 L Neut % (Auto) 69.9 Lymph % (Auto) 14.0 [place] % (Auto) 12.6 H Eos % (Auto) 3.1 Baso % (Auto) 0.4 Neut # (Auto) 3.8 Lymph # (Auto) 0.8 L [place] # (Auto) 0.7 Eos # (Auto) 0.2 Baso # (Auto) 0.0 WBC Differential . Differential Comment Auto diff final Sodium Potassium Chloride Carbon Dioxide Anion Gap BUN Creatinine Estimated GFR Random Glucose Calcium Prot Corrected Calcium Iron 18 L TIBC 245 L % Saturation 7.3 L Ferritin 269 Total Protein Vitamin D 25-Hydroxy Blood Type A Positive Antibody Screen Negative MTS Gel Crossmatch See Detail Bld Prod Order Comment 07/24/18 07/24/18 06:01 09:48 WBC RBC Hgb Hct MCV MCH MCHC RDW Plt Count MPV Neut % (Auto) Lymph % (Auto) [place] % (Auto) Eos % (Auto) Baso % (Auto) Neut # (Auto) Lymph # (Auto) [place] # (Auto) Eos # (Auto) Baso # (Auto) WBC Differential Differential Comment Sodium 145 Potassium 3.6 Chloride 111 H Carbon Dioxide 27.0 Anion Gap 7 BUN 19 H Creatinine 1.72 H Estimated GFR 39 L Random Glucose 101 Calcium 6.7 L* Prot Corrected Calcium 7.1 L* Iron TIBC % Saturation Ferritin Total Protein 6.3 L Vitamin D 25-Hydroxy 25.3 L Blood Type Antibody Screen MTS Gel Crossmatch Bld Prod Order Comment Microbiology 07/22/18 11:16 Aerobic Blood Culture - Preliminary Blood - Peripheral No growth in 2 days Anaerobic Blood Culture - Preliminary No growth in 2 days 07/22/18 11:00 Aerobic Blood Culture - Preliminary Blood - Peripheral No growth in 2 days Anaerobic Blood Culture - Preliminary No growth in 2 days 07/22/18 11:49 Urine Culture - Final Catheterized Urine Staphylococcus epidermidis Result Diagrams: 07/24/18 06:01 07/24/18 06:01 Imaging: ITS Impressions Chest X-Ray 07/22/18 11:00 CONCLUSION: The lungs are grossly clear. Sclerotic metastatic disease. Abdomen/Bladder Ultrasound 07/23/18 00:00 CONCLUSION: 1. Significant debris within the bladder likely blood. Mild bilateral hydronephrosis left greater than right. Assessment and Plan - Plan 73y.o M with other medical issues listed in HPI Urology consulted for hematuria, which is resolving now - Continue care as per primary team - No acute intervention needed - Hematuria can be related to self cath and UTI as well as to previous radiation. - Continue current treatment, follow ID recommendations - Manual irrigation of the bladder may help to get rid of bladder clots/debris seen in the bladder on Sono. - Pt to see his urologist after d/c for further management, may need cysto. Discussed Condition With: Dr Carina TAMAYO attending
--- NOTE | 2018-07-24 15:42 | P.CONID ---
History of Present Illness Service: ID Consult date: 07/24/18 Requesting Physician: Fabiola Hi Reason for Consult: Fevers Primary Care Provider: Marcelo Cote MD Chief Complaint: generalized weakness History of Present Illness: 73 yo male who was diagnosed with slowly growing prostate cancer in 2008 sp surgery, had seeds put in but did not have XRT He apparently was found to have metastatic cancer 2 yrs ago He has mets to bones He is on Luprone He c/o pelvic and perirectal pain x 2 mos and intermittent hematuria x 6 weeks He has fever for 6 weeks up to 102 F range He was ron to hospiutal on Tuesday sp fall He was self cathing but after admission he has palacios Abnormal UA 9pyuria, hematuria) with Staph epi in culture Temps 101.7 Also c/o constipation His T max is 101.7 No leukocytosis Review of Systems All other systems reviewed negative except as stated in HPI PMFSH - History History Provided By: Patient, Significant Other - Medical History Medical History: Medical History (Last Reviewed 07/24/18 @ 16:29 by Calli Gorman MD) Bone cancer FH: cholecystectomy Hep B w/ coma, chronic, w/o delt Hypertension Kidney disease Prostate cancer - Surgical History Surgical History: Surgical History (Last Reviewed 07/24/18 @ 16:29 by Calli Gorman MD) S/P hip replacement - Family History Family History: Family History (Last Reviewed 07/24/18 @ 16:29 by Calli Gorman MD) Other Family history of cancer - Social History I have reviewed the patient's Social History: Yes - Tobacco History Second Hand Smoke Exposure: No Tobacco Use In Past 30 Days: No Smoking Status: Former smoker Tobacco Type: Cigarettes - Alcohol History How Often Do You Have a Drink Containing Alcohol: 2 to 4 times a month - Substance Use History Substance History: No History of Abuse - Substance Use Type Marijuana Status: Active Route Used: Inhalation Comment: medically provided to patient for pain - Travel History Recent Travel in the [place] Within the Last 8 Weeks: No Recent Travel Out of the Country Within the Last 8 Weeks: No - Immunization History Tetanus Immunization: Unsure Hx Influenza Vaccine This Season: Yes Medications and Allergies Active Medications: Active Medications Acetaminophen (Tylenol) 650 mg PO Q4H PRN PRN Reason: fever Last Admin: 07/24/18 14:39 Dose: 650 mg Bupropion HCl (Wellbutrin Xl) 150 mg PO DAILY [facility] Last Admin: 07/24/18 08:26 Dose: 150 mg Diazepam (Valium) 5 mg PO DAILY PRN PRN Reason: Anxiety Docusate Sodium (Colace) 100 mg PO BID [facility] Last Admin: 07/24/18 11:52 Dose: 100 mg Folic Acid (Folic Acid) 1 mg PO DAILY [facility] Last Admin: 07/24/18 11:52 Dose: 1 mg Gabapentin (Neurontin) 300 mg PO BID [facility] Last Admin: 07/24/18 08:27 Dose: 300 mg Heparin Sodium (Porcine) (Heparin Inj) 5,000 units SQ Q12HR [facility] Last Admin: 07/24/18 08:26 Dose: 5,000 units Sodium Chloride (Ns Inj) 1,000 mls @ 70 mls/hr IV.CONT .[id number] [facility] Last Admin: 07/24/18 04:20 Dose: 84 mls/hr Cefepime HCl 1,000 mg/ Sodium (Chloride) 100 mls @ 200 mls/hr IV.SIG DAILY [facility] Last Infusion: 07/24/18 08:56 Dose: Infused Latanoprost (Xalatan 0.005% Opth Drops) 1 drop EACH EYE HS [facility] Last Admin: 07/23/18 20:41 Dose: 1 drop Losartan Potassium (Cozaar) 100 mg PO DAILY [facility] Last Admin: 07/24/18 08:26 Dose: 100 mg Oxycodone HCl (Roxicodone) 5 mg PO Q4H PRN PRN Reason: breakthrough pain Last Admin: 07/24/18 14:36 Dose: 5 mg Oxycodone HCl (Oxycontin Cr) 10 mg PO Q12H [facility] Last Admin: 07/24/18 10:43 Dose: 10 mg Pom: (Lubiprostone [ (Amitiza] 24 Mcg)) 0 each PO BID [facility] Tenofovir Disoproxil Fumarate (Viread) 300 mg PO EVERY OTHER DAY [facility] Last Admin: 07/24/18 08:27 Dose: 300 mg Tolterodine Tartrate (Detrol La) 4 mg PO DAILY [facility] Last Admin: 07/24/18 14:35 Dose: Not Given Allergies Allergy/AdvReac Type Severity Reaction Status Date / Time morphine Allergy Severe MORPHINE Verified 07/22/18 11:48 ALLERGY ADDED 12/19/07 @1500 - N/V Home Medications Medication Instructions Recorded Confirmed Type bimatoprost [Lumigan] 1 drp OPHTHALMIC (EYE) QPM 07/22/18 07/22/18 History bupropion HCl 150 mg PO QAM 07/22/18 07/22/18 History denosumab 120 mg SUB-Q Q4W 07/22/18 07/22/18 History diazepam [Valium] 5 mg PO DAILY PRN 07/22/18 07/22/18 History docusate sodium [Colace] 100 mg PO BID 07/22/18 07/22/18 History enzalutamide 160 mg PO DAILY 07/22/18 07/22/18 History folic acid 0.4 mg PO DAILY 07/22/18 07/22/18 History gabapentin 300 mg PO BID 07/22/18 07/22/18 History glucosamine-chondroitin [Osteo 2 tab PO DAILY 07/22/18 07/22/18 History Bi-Flex] leuprolide (3 month) 0 mg IM [id number] 07/22/18 07/22/18 History lubiprostone [Amitiza] 24 mcg PO BID 07/22/18 07/22/18 History oxycodone 5 mg PO Q4-6H 07/22/18 07/22/18 History oxycodone [OxyContin] 10 mg PO Q12H 07/22/18 07/22/18 History solifenacin [Vesicare] 10 mg PO DAILY 07/22/18 07/22/18 History telmisartan [Micardis] 80 mg PO DAILY 07/22/18 07/22/18 History tenofovir disoproxil fumarate 300 mg PO EVERY OTHER DAY 07/22/18 07/22/18 History [Viread] Exam Vital signs: Vital Signs 07/23/18 16:00 07/23/18 17:02 07/23/18 20:00 Temperature 101.2 F H 99.7 F H Pulse Rate 91 H 65 Respiratory Rate 18 Blood Pressure 132/72 Pulse Oximetry 99 07/23/18 20:52 07/23/18 21:05 07/23/18 22:06 Temperature 98.2 F 98.5 F Pulse Rate 66 66 Respiratory Rate 17 18 16 Blood Pressure 114/60 118/67 Pulse Oximetry 96 98 07/23/18 22:45 07/24/18 00:00 07/24/18 00:08 Temperature 99.9 F H Pulse Rate 69 72 Respiratory Rate 16 19 Blood Pressure 126/64 Pulse Oximetry 96 07/24/18 01:22 07/24/18 03:18 07/24/18 04:14 Temperature 99.1 F Pulse Rate 60 Respiratory Rate 16 17 16 Blood Pressure 122/62 Pulse Oximetry 97 07/24/18 04:15 07/24/18 06:46 07/24/18 07:00 Temperature Pulse Rate 60 62 Respiratory Rate 15 Blood Pressure Pulse Oximetry 07/24/18 08:19 07/24/18 11:46 07/24/18 11:52 Temperature 98.9 F 98.8 F Pulse Rate 72 76 Respiratory Rate 18 18 18 Blood Pressure 123/83 127/74 Pulse Oximetry 96 99 07/24/18 14:42 07/24/18 15:17 Temperature 100.4 F H 101.7 F H Pulse Rate 79 Respiratory Rate 18 Blood Pressure 126/62 Pulse Oximetry 93 L Intake & Output 07/23/18 07/24/18 07/24/18 18:59 06:59 18:59 Intake Total 2140 / 2140 880 / 880 100 / 100 Output Total 1650 / 1650 1974 Balance 490 / 490 -1095 / -1095 100 / 100 Weight 85.3 kg Intake: IV 100 / 100 100 / 100 Maxipime Inj 1,000 MG In NS Inj 100 / 100 100 / 100 100 ML @ 200 mls/hr IV.SIG DAILY [facility] Rx#:[id number] Oral 2039 / 0 480 / 480 Intake (Blood Product) Amt 400 / 400 Rbc As-3 Leukoreduced Unit 400 / 400 [id number] Output: Urine 1650 / 1650 1974 Other: Date of Last Bowel Movement 07/21/18 07/21/18 07/21/18 - Constitutional no acute distress, average body habitus - Routine HEENT Exam Head: Present: normocephalic, atraumatic Eye: Present: EOMI, PERRL, conjunctivae pink. Absent: scleral injection ENT: Present: mucous membranes moist, oropharynx clear. Absent: dentition normal - Routine Neck Exam Present: supple, full ROM. Absent: lymphadenopathy - Routine Respiratory Exam Present: CTA bilaterally. Absent: accessory muscle use, rales, respiratory distress, rhonchi - Routine Cardiovascular Exam Present: RRR, S1, S2. Absent: murmur, gallop, rubs - Routine Abdominal Exam Present: soft, normoactive bowel sounds, tenderness (LLQ ), rebound (mild), guarding. Absent: organomegaly, mass - Routine Exam Penile: Absent: swelling, erythema Scrotal: Absent: swelling, tenderness Groin: Absent: swelling, erythema Perineum Description: Intact Comments: No perirectal lesions [place] in place with significantly bloody and cloudy urine - Routine Extremities Exam Present: full ROM, normal capillary refill. Absent: cyanosis, clubbing, edema - Routine Skin Exam Present: intact, dry, warm. Absent: cyanosis, rash - Routine Neurological Exam Present: alert, oriented X3, CN II-XII intact, moving all extremities, vision grossly intact, hearing grossly intact, normal speech - Routine Psychiatric Exam Present: normal affect, normal thought process, good insight Results - Labs CBC & Chem 7: 07/24/18 06:01 07/24/18 06:01 Labs: Laboratory Results - last 24 hr 07/23/18 07/23/18 07/24/18 07:40 16:15 06:01 WBC 5.5 RBC 2.93 L Hgb 8.9 L Hct 27.2 L MCV 92.6 MCH 30.4 MCHC 32.8 RDW 15.8 Plt Count 367 MPV 6.6 L Neut % (Auto) 69.9 Lymph % (Auto) 14.0 [place] % (Auto) 12.6 H Eos % (Auto) 3.1 Baso % (Auto) 0.4 Neut # (Auto) 3.8 Lymph # (Auto) 0.8 L [place] # (Auto) 0.7 Eos # (Auto) 0.2 Baso # (Auto) 0.0 WBC Differential . Differential Comment Auto diff final Sodium Potassium Chloride Carbon Dioxide Anion Gap BUN Creatinine Estimated GFR Random Glucose Calcium Prot Corrected Calcium Iron 18 L TIBC 245 L % Saturation 7.3 L Ferritin 269 Total Protein Vitamin D 25-Hydroxy Blood Type A Positive Antibody Screen Negative MTS Gel Crossmatch See Detail Bld Prod Order Comment 07/24/18 07/24/18 06:01 09:48 WBC RBC Hgb Hct MCV MCH MCHC RDW Plt Count MPV Neut % (Auto) Lymph % (Auto) [place] % (Auto) Eos % (Auto) Baso % (Auto) Neut # (Auto) Lymph # (Auto) [place] # (Auto) Eos # (Auto) Baso # (Auto) WBC Differential Differential Comment Sodium 145 Potassium 3.6 Chloride 111 H Carbon Dioxide 27.0 Anion Gap 7 BUN 19 H Creatinine 1.72 H Estimated GFR 39 L Random Glucose 101 Calcium 6.7 L* Prot Corrected Calcium 7.1 L* Iron TIBC % Saturation Ferritin Total Protein 6.3 L Vitamin D 25-Hydroxy 25.3 L Blood Type Antibody Screen MTS Gel Crossmatch Bld Prod Order Comment - Imaging Impressions Abdomen/Bladder Ultrasound 07/23/18 00:00 CONCLUSION: 1. Significant debris within the bladder likely blood. Mild bilateral hydronephrosis left greater than right. Assessment and Plan - Plan Metastatic prostate cancer FUO (6 weeks) Hematuria Probably UTI - Staph epi not a typical pathogen GENI add levaquin CT A/P with contrast will add zosyn dc cefepime ac pt, @ b/s
[2018-07-24] MEDS ORDERED: Diatrizoate Meglum/Diatrizoate Sod Liq 9 ML UDC PO ONE (18:00)
[2018-07-24] MEDS: Piperacil/Tazo 3.375 GM Premix 50 ML IV.SIG SCH (19:13)
[2018-07-24] MEDS: Levofloxacin 500 mg Premix Inj 500 MG/100 ML PIGGYBACK IV.SIG SCH (19:57)
--- NOTE | 2018-07-24 19:59 | P.CON ---
History of Present Illness Service: Hematology/oncology Consult date: 07/24/18 Requesting Physician: Fabiola Hi Reason for Consult: Metastatic prostate cancer. Primary Care Provider: Marcelo Cote MD Chief Complaint: Fall, trauma to right side of forehead, hematuria, fevers. History of Present Illness: Mr. Queen is a 73-year-old man who is well-known to my outpatient practice, the patient has a history of metastatic prostate carcinoma with extensive bony metastatic disease. The patient has been on palliative androgen deprivation therapy with Lupron and most recently Xtandi. He has had an excellent biochemical response with PSA levels virtually undetectable for the past 6 months. The patient over the past 2 months however has had symptoms of generalized pain in the pelvic area and fatigue, he is also had worsening hematuria. It should be noted that the patient has had a history of bladder outflow obstruction and as a result has for the past 2 years been performing self catheterizations; without which she is unable to urinate. The patient had undergone restaging PET/CT imaging in late May 2018. This revealed his bony metastatic disease to be under relatively good control, he was however found to have hypermetabolic activity in the area of the prostate. The patient's former urologist Dr. Parmar had performed cystoscopy approximately 2 weeks ago to further evaluate the cause of the patient's hematuria and pelvic pain, no definite etiology was identified. The patient's who is his primary caregiver reports the patient having been increasingly fatigued, at times confused over the past several days. He also reported symptoms of feeling chills even in 80F whether. On the morning of presentation to [facility] on 07/22/2018 the patient was attempting to self catheterize himself at 5 in the morning when he fell face first onto the tile floor, he impacted on the left side of his chest and left side of his head, he suffered a laceration over his left eye. His brought him into the emergency department for further workup and evaluation. The patient's laceration over the left eye/left forehead was controlled with Dermabond, he was assessed to have prostatitis and was initiated on empiric antibiotic coverage with cefepime. For management of his hematuria a Engel catheter was placed, this was irrigated and the patient's hematuria was noted to have improved by the time of this dictation. Overall, the patient reports feeling improved with decreased pain in the pelvis , he reports his chills and feverish feeling has also resolved. He was transfused packed red blood cells for management of anemia. Review of Systems Constitutional: Reports anorexia, Reports body ache(s), Reports chills, Reports daytime sleepiness, Reports fatigue, Reports fever(s), Denies headache(s), Denies malaise Eyes: Reports pain, Denies blind spots, Denies change in vision, Denies double vision Ears, Nose, Mouth, and Throat: Denies abnormal hearing, Denies change in voice, Denies tongue swelling Cardiovascular: Denies chest pain, Denies chest pain at rest, Denies leg swelling, Denies shortness of breath with activity, Denies shortness of breath when lying down Respiratory: Denies change in phlegm color, Denies chest congestion, Denies cough, Denies coughing up blood, Denies shortness of breath Gastrointestinal: Reports change in bowel habits, Reports constipation, Reports cramping, Denies abdominal pain (constipation), Denies belching, Denies black, tarry stools, Denies nausea Genitourinary: Reports blood in urine Comments: Urinary retention, needs to self catheterize. Musculoskeletal: Reports back pain, Denies abnormal walking, Denies body aches, Denies joint pain Skin/Breast: Denies skin ulcer, Denies sores Neurologic: Reports confusion, Reports dizziness, Reports frequent falls, Reports unsteadiness, Denies abnormal hearing, Denies abnormal walking, Denies weakness Psychiatric: Reports change in appetite (Decreased appetite.) Endocrine: Reports cold intolerance, Reports flushing, Reports heat intolerance Hematologic/Lymphatic: Denies easy bleeding Allergic/Immunologic: Denies GI upset with certain foods PMFSH - History History Provided By: Patient, Significant Other - Medical History Medical History: Medical History (Last Updated 07/24/18 @ 19:45 by Junior Gant MD) Chronic pain due to neoplasm FH: cholecystectomy Hematuria Hepatitis B Hypertension Kidney disease Prostate cancer 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 - Surgical History Surgical History: Surgical History (Last Reviewed 07/24/18 @ 19:45 by Junior Gant MD) S/P hip replacement - Family History Family History: Family History (Last Reviewed 07/24/18 @ 19:45 by Junior Gant MD) Other Family history of cancer - Social History I have reviewed the patient's Social History: Yes - Tobacco History Second Hand Smoke Exposure: No Tobacco Use In Past 30 Days: No Smoking Status: Former smoker Tobacco Type: Cigarettes - Alcohol History How Often Do You Have a Drink Containing Alcohol: 2 to 4 times a month - Substance Use History Substance History: No History of Abuse - Substance Use Type Marijuana Status: Active Route Used: Inhalation Comment: medically provided to patient for pain - Travel History Recent Travel in the [place] Within the Last 8 Weeks: No Recent Travel Out of the Country Within the Last 8 Weeks: No - Immunization History Tetanus Immunization: Unsure Hx Influenza Vaccine This Season: Yes Medications and Allergies Active Medications: Active Medications Acetaminophen (Tylenol) 650 mg PO Q4H PRN PRN Reason: fever Last Admin: 07/24/18 14:39 Dose: 650 mg Bupropion HCl (Wellbutrin Xl) 150 mg PO DAILY [facility] Last Admin: 07/24/18 08:26 Dose: 150 mg Diazepam (Valium) 5 mg PO DAILY PRN PRN Reason: Anxiety Docusate Sodium (Colace) 100 mg PO BID [facility] Last Admin: 07/24/18 11:52 Dose: 100 mg Folic Acid (Folic Acid) 1 mg PO DAILY [facility] Last Admin: 07/24/18 11:52 Dose: 1 mg Gabapentin (Neurontin) 300 mg PO BID [facility] Last Admin: 07/24/18 08:27 Dose: 300 mg Heparin Sodium (Porcine) (Heparin Inj) 5,000 units SQ Q12HR [facility] Last Admin: 07/24/18 08:26 Dose: 5,000 units Sodium Chloride (Ns Inj) 1,000 mls @ 70 mls/hr IV.CONT .[id number] [facility] Last Admin: 07/24/18 19:13 Dose: 84 mls/hr Piperacillin/Tazobactam/Dextrose (Zosyn 3.375 Gm Premix) 50 mls @ 100 mls/hr IV.SIG Q6H [facility] Last Admin: 07/24/18 19:13 Dose: 100 mls/hr Levofloxacin/Dextrose (Levaquin 500 Mg Premix Inj) 500 mg in 100 mls @ 100 mls/ hr IV.SIG Q24H [facility] Latanoprost (Xalatan 0.005% Opth Drops) 1 drop EACH EYE [facility] Last Admin: 07/23/18 20:41 Dose: 1 drop Losartan Potassium (Cozaar) 100 mg PO DAILY [facility] Last Admin: 07/24/18 08:26 Dose: 100 mg Oxycodone HCl (Roxicodone) 5 mg PO Q4H PRN PRN Reason: breakthrough pain Last Admin: 07/24/18 14:36 Dose: 5 mg Oxycodone HCl (Oxycontin Cr) 10 mg PO Q12H [facility] Last Admin: 07/24/18 10:43 Dose: 10 mg Pom: (Lubiprostone [ (Amitiza] 24 Mcg)) 0 each PO BID [facility] Tenofovir Disoproxil Fumarate (Viread) 300 mg PO EVERY OTHER DAY [facility] Last Admin: 07/24/18 08:27 Dose: 300 mg Tolterodine Tartrate (Detrol La) 4 mg PO DAILY [facility] Last Admin: 07/24/18 14:35 Dose: Not Given Allergies Allergy/AdvReac Type Severity Reaction Status Date / Time morphine Allergy Severe MORPHINE Verified 07/22/18 11:48 ALLERGY ADDED 12/19/07 @1500 - N/V Home Medications Medication Instructions Recorded Confirmed Type bimatoprost [Lumigan] 1 drp OPHTHALMIC (EYE) QPM 07/22/18 07/22/18 History bupropion HCl 150 mg PO QAM 07/22/18 07/22/18 History denosumab 120 mg SUB-Q Q4W 07/22/18 07/22/18 History diazepam [Valium] 5 mg PO DAILY PRN 07/22/18 07/22/18 History docusate sodium [Colace] 100 mg PO BID 07/22/18 07/22/18 History enzalutamide 160 mg PO DAILY 07/22/18 07/22/18 History folic acid 0.4 mg PO DAILY 07/22/18 07/22/18 History gabapentin 300 mg PO BID 07/22/18 07/22/18 History glucosamine-chondroitin [Osteo 2 tab PO DAILY 07/22/18 07/22/18 History Bi-Flex] leuprolide (3 month) 0 mg IM [id number] 07/22/18 07/22/18 History lubiprostone [Amitiza] 24 mcg PO BID 07/22/18 07/22/18 History oxycodone 5 mg PO Q4-6H 07/22/18 07/22/18 History oxycodone [OxyContin] 10 mg PO Q12H 07/22/18 07/22/18 History solifenacin [Vesicare] 10 mg PO DAILY 07/22/18 07/22/18 History telmisartan [Micardis] 80 mg PO DAILY 07/22/18 07/22/18 History tenofovir disoproxil fumarate 300 mg PO EVERY OTHER DAY 07/22/18 07/22/18 History [Viread] Physical Exam Vital signs: Vital Signs 07/23/18 20:00 07/23/18 20:52 07/23/18 21:05 Temperature 98.2 F 98.5 F Pulse Rate 65 66 66 Respiratory Rate 17 18 Blood Pressure 114/60 118/67 Pulse Oximetry 96 98 07/23/18 22:06 07/23/18 22:45 07/24/18 00:00 Temperature Pulse Rate 69 Respiratory Rate 16 16 Blood Pressure Pulse Oximetry 07/24/18 00:08 07/24/18 01:22 07/24/18 03:18 Temperature 99.9 F H Pulse Rate 72 Respiratory Rate 19 16 17 Blood Pressure 126/64 Pulse Oximetry 96 07/24/18 04:14 07/24/18 04:15 07/24/18 06:46 Temperature 99.1 F Pulse Rate 60 60 Respiratory Rate 16 15 Blood Pressure 122/62 Pulse Oximetry 97 07/24/18 07:00 07/24/18 08:19 07/24/18 11:00 Temperature 98.9 F Pulse Rate 62 72 79 Respiratory Rate 18 Blood Pressure 123/83 Pulse Oximetry 96 07/24/18 11:46 07/24/18 11:52 07/24/18 14:42 Temperature 98.8 F 100.4 F H Pulse Rate 76 Respiratory Rate 18 18 Blood Pressure 127/74 Pulse Oximetry 99 07/24/18 15:00 07/24/18 15:17 07/24/18 19:22 Temperature 101.7 F H 98.9 F Pulse Rate 69 79 71 Respiratory Rate 18 17 Blood Pressure 126/62 131/71 Pulse Oximetry 93 L 97 Intake & Output 07/24/18 07/24/18 07/25/18 06:59 18:59 06:59 Intake Total 880 / 880 2100 / 2100 Output Total 1976 / 1974 1200 / 1200 Balance -1095 / -1095 900 / 900 Weight 85.3 kg Intake: IV 1100 / 1100 NS Inj 1,000 ML @ 70 mls/hr IV. 1000 / 1000 CONT .[id number] [facility] Rx#:[id number] Maxipime Inj 1,000 MG In NS Inj 100 / 100 100 ML @ 200 mls/hr IV.SIG DAILY [facility] Rx#:[id number] Oral 480 / 480 1000 / 1000 Intake (Blood Product) Amt 400 / 400 Rbc As-3 Leukoreduced Unit 400 / 400 [id number] Output: Urine 1974 1200 / 1200 Other: Date of Last Bowel Movement 07/21/18 07/24/18 # Bowel Movements 2 Narrative: Elderly male, sitting up on a bedside chair, appears to be no acute distress. His is at bedside. He looks to her to assist with answering questions regarding historical details. - Constitutional no acute distress - Routine HEENT Exam Head: Present: normocephalic (Laceration over the left eye, Dermabond on the laceration. No ongoing bleeding.). Absent: cushingoid faces Eye: Present: EOMI, PERRL, normal accommodation ENT: Present: mucous membranes moist, mucous membranes dry - Routine Neck Exam Present: supple. Absent: lymphadenopathy - Routine Respiratory Exam Present: CTA bilaterally, rales. Absent: prolonged expiratory phase, rhonchi, stridor, wheezes, crackles, distant breath sounds, diminished air movement - Routine Cardiovascular Exam Present: RRR, S1, S2, murmur. Absent: gallop, rubs, S3, S4 - Routine Abdominal Exam Present: soft. Absent: normoactive bowel sounds, tenderness, distended, rebound , firm - Routine Exam Patient deferred: penile exam, testicular exam Penile: Absent: swelling, ulceration Comments: Engel catheter in place. Engel to with blood-tinged urine. - Routine Extremities Exam Absent: cyanosis, clubbing, edema, full ROM - Routine Skin Exam Present: intact. Absent: cyanosis, erythema, dry - Routine Neurological Exam Present: alert, oriented X3, CN II-XII intact. Absent: sensory deficit, motor deficit - Detailed Neurological Exam: Coma Scale Eye Opening: Spontaneous - Routine Psychiatric Exam Present: normal affect - Urinary Catheter Management Indwelling Urethral Catheter Cath placed during this visit: yes Reason for continuing: Gross Hematuria Insertion date: 07/22/18 Insertion time: 16:50 Assessment and Plan - Plan Mr. Queen is a 73-year-old man who is well-known to my outpatient practice, this patient has a diagnosis of metastatic prostate carcinoma with extensive bony metastatic disease burden. His disease is androgen sensitive, he was found to have progressive disease on first-line combined androgen therapy consisting of leuprolide and Casodex. He was subsequently initiated on second line therapy with combination of Xtandi and leuprolide, he has had excellent response both biochemically and clinically. Last 2 months however have been complicated by hematuria, pelvic pain, dysuria, progressive weakness and more recently fevers and chills. He underwent a cystoscopy about 2 weeks ago under the care of Dr. Parmar which did not reveal a definitive etiology for the bleeding and pelvic discomfort. The patient however began to develop progressive weakness and fevers and worsening hematuria. On 07/22/2018 he fell while trying to self catheterize himself, his thinks he passed out. He suffered a laceration above his left eye and was brought into the emergency department for management of the bleeding. The emergency department after controlling the bleeding with Dermabond over his left eye he underwent further evaluation and was assessed to have prostatitis and was initiated on empiric antibiotics with cefepime. For management of hematuria a Engel catheter was placed and the patient was manually irrigated with interval decrease in hematuria. Recommendations: 1. Dysuria, hematuria and fevers associated with clinical diagnosis of prostatitis: Continue antibiotic therapy, is presently on cefepime. Await infectious diseases recommendations for long-term management. Also await results of CT abdomen pelvis which is pending at this time. 2. Metastatic prostate carcinoma with extensive bony metastases: Patient has been on combination systemic therapy with leuprolide which is dosed once every 3 months and daily dosing of Xtandi which he has been responding well. For management of his extensive bony metastases he is on denosumab once every 6-8 weeks. 3. Hypocalcemia: May be related to denosumab dosing, I would recommend continue oral calcium supplementation. 4. Pain control: In the outpatient setting he is on long and short acting opioids for management of his metastatic cancer related pain. Disposition: Continue ongoing care. Appreciate assistance of the hospitalis, urology and infectious diseases services.t Discussed Condition With: The patient and his .
--- NOTE | 2018-07-24 21:18 | CT ---
EXAM DATE: 07/24/2018 8:42 PM EDT AGE/SEX: 73 years / Male INDICATIONS: Fever infection fall Tuesday CLINICAL DATA: This is the patient's initial encounter. Patient reports that signs and symptoms have been present for 1 day and indicates a pain score of 4/10. MEDICAL/SURGICAL HISTORY: Hepatitis B. Hypertension. Renal disease. Prostate cancer mets Ch olecystectomy. RADIATION DOSE: 14.86 CTDI (mGy) COMPARISON: [facility], CT ABDOMEN AND PELVIS W/O CONTRAST, 02/16/2017. . TECHNIQUE: Multiple contiguous axial images were obtained through the abdomen. Images were obtained using multiple row detector helical technique. Using automated exposure control and adjustment of the mA and/or kV according to patient size, radiation dose was kept as low as reasonably achievable to o btain optimal diagnostic quality images. DICOM format image data is available electronically for rev iew and comparison. FINDINGS: Lower Lungs: There are small bilateral pleural effusions right greater than left. Liver: The liver has a homogeneous density without space-occupying lesion. There is no dilation of th e biliary tree. The patient is status post cholecystectomy. Spleen: Homogeneous density without enlargement. Pancreas: Unremarkable without mass or calcification. Kidneys: Normal in size and shape. No evidence of mass or renal calculi. There is bilateral mild to moderate hydronephrosis with mild dilatation of the ureters down to level of the bladder with no rachel ling defects.. Adrenal Glands: Unremarkable. Aorta: The aorta and proximal iliac vessels are grossly unremarkable without aneurysmal dilation. Bowel/Mesentery: Multiple diverticuli are again noted greatest in the sigmoid colon with no definite inflammatory change. Abdominal Wall: Intact. Retroperitoneum: Stable appearance with multiple small retroperitoneal lymph nodes again noted which appear reactive. There is no new adenopathy. Bladder: Engel catheter is present in the bladder. There are several small gas bubbles as well as ab normal density within the bladder could represent blood products and/or tumor. Reproductive Organs: Multiple radiation seed implants are again noted in the lower pelvis. Inguinal: The inguinal region is unremarkable without evidence of adenopathy. Bony Structures: Status post bilateral hip arthroplasty with streak artifact obscuring portions of t he pelvis. Extensive sclerotic osseous metastasis are present which are increased from the prior stud y. CONCLUSION: 1. Abnormal bladder with increased density consistent with blood products and/or tumor. A Engel cath eter is present with a small amount of air. 2. New mild to moderate bilateral hydronephrosis. Small bilateral pleural effusions right greater th an left. 3. Extensive sclerotic metastatic disease with interval progression. Electronically signed by: Manav Chairez MD 07/24/2018 9:17 PM EDT
[2018-07-24] MEDS: Calcium Carbonate 500 MG Tablet PO SCH (21:20)
[2018-07-24] MEDS: Latanoprost 0.005% Opth Drops 2.5 ML Bottle EACH EYE SCH (21:21)
[2018-07-25] MEDS: Piperacil/Tazo 3.375 GM Premix 50 ML IV.SIG SCH ×5 (00:13→22:40)
[2018-07-25] MEDS: Acetaminophen 325 MG Tablet PO PRN (04:15)
[2018-07-25] MEDS: diazePAM 5 MG Tablet PO PRN (04:15)
[2018-07-25] MEDS: Sod Chloride 0.9% Inj 1,000 ML IV.CONT SCH (05:45)
[2018-07-25] MEDS: Heparin - SQ 10,000 UNITS/ML Vial SQ SCH ×2 (09:42→20:15)
[2018-07-25] MEDS: Docusate Sodium 100 MG Capsule PO SCH ×3 (09:43→18:09)
[2018-07-25] MEDS: buPROPion 150 MG XL 24 HR Tablet PO SCH (09:43)
[2018-07-25] MEDS: Calcium Carbonate 500 MG Tablet PO SCH ×2 (09:44→20:14)
[2018-07-25] MEDS: Folic Acid 1 MG Tablet PO SCH (09:44)
[2018-07-25] MEDS: Gabapentin 300 MG Capsule PO SCH ×2 (09:44→20:15)
[2018-07-25] MEDS: oxyCODONE 10 MG Controlled Release Tablet PO SCH ×2 (09:44→22:42)
[2018-07-25] MEDS: Tolterodine Tartrate LA 4 MG Capsule PO SCH (09:51)
--- NOTE | 2018-07-25 15:05 | P.PNURO ---
Subjective Patient symptoms today: Pt was seen at the bed time again as per his request. Still c/o hematuria. Had to be manually irrigated last night to remove clot that was clogging palacios. Since then its draining well, partially yellow/partially light pink urine. passing some clots. H/H is stable. VS are ok. ID is on board for UTI/ prostatitis management. CT showed b/l mild hydro and bloody product debris. No active bleeding seen but pt is on heparin which can make previous bleeding slightly worse Objective Vital Signs: Vital Signs 07/24/18 15:00 07/24/18 15:17 07/24/18 19:22 Temperature 101.7 F H 98.9 F Pulse Rate 69 79 71 Respiratory Rate 18 17 Blood Pressure 126/62 131/71 Pulse Oximetry 93 L 97 07/24/18 19:30 07/24/18 20:25 07/24/18 21:50 Temperature Pulse Rate 67 Respiratory Rate 18 16 Blood Pressure Pulse Oximetry 07/25/18 00:05 07/25/18 00:22 07/25/18 00:41 Temperature 98 F Pulse Rate 75 77 Respiratory Rate 20 18 Blood Pressure 129/71 Pulse Oximetry 97 07/25/18 04:09 07/25/18 04:10 07/25/18 04:40 Temperature 100.4 F H Pulse Rate 70 70 Respiratory Rate 21 16 Blood Pressure 129/71 Pulse Oximetry 98 07/25/18 07:00 07/25/18 07:48 07/25/18 11:00 Temperature 99.7 F H Pulse Rate 59 L 62 68 Respiratory Rate 18 Blood Pressure 111/62 Pulse Oximetry 97 07/25/18 11:34 07/25/18 11:37 Temperature 98.6 F Pulse Rate 69 Respiratory Rate 18 18 Blood Pressure 105/65 Pulse Oximetry 97 Intake & Output 07/24/18 07/25/18 07/25/18 18:59 06:59 18:59 Intake Total 2100 / 2100 1450 / 1450 50 / 50 Output Total 1200 / 1200 2650 / 2650 1200 / 1200 Balance 900 / 900 -1200 / -1200 -1150 / -1150 Weight 83.5 kg Intake: IV 1100 / 1100 1250 / 1250 50 / 50 NS Inj 1,000 ML @ 70 mls/hr IV. 1000 / 1000 1000 / 1000 CONT .[id number] [facility] Rx#:[id number] Maxipime Inj 1,000 MG In NS Inj 100 / 100 100 ML @ 200 mls/hr IV.SIG DAILY [facility] Rx#:[id number] Levaquin 500 mg Premix Inj 500 100 / 100 mg In 100 ml @ 100 mls/hr IV. SIG Q24H [facility] Rx#:[id number] Zosyn 3.375 GM Premix 50 ML @ 150 / 150 50 / 50 100 mls/hr IV.SIG Q6H [facility] Rx#: [id number] Oral 1000 / 1000 200 / 200 Output: Urine 1200 / 1200 1200 / 1200 Urine Amount (Catheter) 2650 / 2650 Indwelling Urethral Catheter 2650 / 2650 Other: Date of Last Bowel Movement 07/24/18 07/24/18 07/24/18 # Bowel Movements 2 Result Diagrams: 07/26/18 03:31 07/26/18 03:31 Imaging: Impressions Abdomen/Pelvis CT 07/24/18 00:00 CONCLUSION: 1. Abnormal bladder with increased density consistent with blood products and/ or tumor. A Palacios catheter is present with a small amount of air. 2. New mild to moderate bilateral hydronephrosis. Small bilateral pleural effusions right greater than left. 3. Extensive sclerotic metastatic disease with interval progression. Medications and IVs: Active Medications Generic Name Dose Route Start Last Admin Trade Name Freq PRN Reason Stop Dose Admin Acetaminophen 650 mg 07/22/18 13:55 07/25/18 04:15 Tylenol PO 650 mg Q4H PRN Administration fever Bupropion HCl 150 mg 07/22/18 14:00 07/25/18 09:43 Wellbutrin Xl PO 150 mg DAILY [facility] Administration Diazepam 5 mg 07/22/18 13:57 07/25/18 04:15 Valium PO 5 mg DAILY PRN Administration Anxiety Docusate Sodium 100 mg 07/24/18 12:00 07/25/18 09:43 Colace PO 100 mg BID [facility] Administration Folic Acid 1 mg 07/24/18 12:00 07/25/18 09:44 Folic Acid PO 1 mg DAILY [facility] Administration Gabapentin 300 mg 07/23/18 21:00 07/25/18 09:44 Neurontin PO 300 mg BID [facility] Administration Heparin Sodium (Porcine) 5,000 units 07/22/18 21:00 07/25/18 09:42 Heparin Inj SQ 5,000 units Q12HR [facility] Administration Sodium Chloride 1,000 mls @ 70 mls/hr 07/22/18 14:01 07/25/18 05:45 Ns Inj IV.CONT 84 mls/hr .[id number] [facility] Administration Piperacillin/Tazobactam/Dextrose 50 mls @ 100 mls/hr 07/24/18 17:30 07/25/18 12:24 Zosyn 3.375 Gm Premix IV.SIG Infused Q6H [facility] Infusion Levofloxacin/Dextrose 500 mg in 100 mls @ 100 mls/hr 07/24/18 18:00 07/24/18 20:58 Levaquin 500 Mg Premix Inj IV.SIG Infused Q24H [facility] Infusion Latanoprost 1 drop 07/22/18 21:00 07/24/18 21:21 Xalatan 0.005% Opth Drops EACH EYE 1 drop HS [facility] Administration Losartan Potassium 100 mg 07/22/18 14:30 07/25/18 09:44 Cozaar PO 100 mg DAILY [facility] Administration Oxycodone HCl 5 mg 07/22/18 14:46 07/25/18 14:19 Roxicodone PO 5 mg Q4H PRN Administration breakthrough pain Oxycodone HCl 10 mg 07/22/18 22:00 07/25/18 09:44 Oxycontin Cr PO 10 mg Q12H [facility] Administration Pom: (Lubiprostone [ 0 each 07/22/18 21:00 Amitiza] 24 Mcg) PO BID [facility] Tenofovir Disoproxil Fumarate 300 mg 07/24/18 09:00 07/24/18 08:27 Viread PO 300 mg EVERY OTHER DAY [facility] Administration Tolterodine Tartrate 4 mg 07/24/18 13:00 07/25/18 09:51 Detrol La PO 4 mg DAILY [facility] Administration Vitamin D 2,000 unit 07/25/18 09:00 07/25/18 09:51 Vitamin D3 PO 2,000 unit DAILY [facility] Administration Objective Remarks: IVONNE RRR Clear lungs Palacios is in place, urine is light pink Assessment and Plan - Plan 73y.o M with other medical issues listed in HPI Urology consulted for hematuria, which is resolving now No additional recommendations, same as below - Continue care as per primary team - No acute intervention needed - Hematuria can be related to self cath and UTI as well as to previous radiation. - Continue current treatment, follow ID recommendations - Manual irrigation of the bladder may help to get rid of bladder clots/debris seen in the bladder on Sono. Do it BID - Pt to see his urologist after d/c for further management, may need cysto as outpt. Discussed Condition With: Dr Carina TAMAYO attending and RN
--- NOTE | 2018-07-25 15:24 | P.PN ---
Subjective Interval history: feeling better T max 99.7 palacios bag- lt blood tinged urine - no abdominal pain + leg swelling Physical Exam Vital signs: Vital Signs 07/24/18 19:22 07/24/18 19:30 07/24/18 20:25 Temperature 98.9 F Pulse Rate 71 67 Respiratory Rate 17 18 Blood Pressure 131/71 Pulse Oximetry 97 07/24/18 21:50 07/25/18 00:05 07/25/18 00:22 Temperature 98 F Pulse Rate 75 77 Respiratory Rate 16 20 Blood Pressure 129/71 Pulse Oximetry 97 07/25/18 00:41 07/25/18 04:09 07/25/18 04:10 Temperature 100.4 F H Pulse Rate 70 70 Respiratory Rate 18 21 Blood Pressure 129/71 Pulse Oximetry 98 07/25/18 04:40 07/25/18 07:00 07/25/18 07:48 Temperature 99.7 F H Pulse Rate 59 L 62 Respiratory Rate 16 18 Blood Pressure 111/62 Pulse Oximetry 97 07/25/18 11:00 07/25/18 11:34 07/25/18 11:37 Temperature 98.6 F Pulse Rate 68 69 Respiratory Rate 18 18 Blood Pressure 105/65 Pulse Oximetry 97 Intake & Output 07/24/18 07/25/18 07/25/18 18:59 06:59 18:59 Intake Total 2100 / 2100 1450 / 1450 50 / 50 Output Total 1200 / 1200 2650 / 2650 1200 / 1200 Balance 900 / 900 -1200 / -1200 -1150 / -1150 Weight 83.5 kg Intake: IV 1100 / 1100 1250 / 1250 50 / 50 NS Inj 1,000 ML @ 70 mls/hr IV. 1000 / 1000 1000 / 1000 CONT .[id number] [facility] Rx#:[id number] Maxipime Inj 1,000 MG In NS Inj 100 / 100 100 ML @ 200 mls/hr IV.SIG DAILY [facility] Rx#:[id number] Levaquin 500 mg Premix Inj 500 100 / 100 mg In 100 ml @ 100 mls/hr IV. SIG Q24H [facility] Rx#:[id number] Zosyn 3.375 GM Premix 50 ML @ 150 / 150 50 / 50 100 mls/hr IV.SIG Q6H [facility] Rx#: [id number] Oral 1000 / 1000 200 / 200 Output: Urine 1200 / 1200 1200 / 1200 Urine Amount (Catheter) 2650 / 2650 Indwelling Urethral Catheter 2650 / 2650 Other: Date of Last Bowel Movement 07/24/18 07/24/18 07/24/18 # Bowel Movements 2 Narrative: awake and alert, no acute distress anciteric no neck rigidity lungs- no rales regular rhythm abdomensoft nontender palacios in place extremties + edema - Urinary Catheter Management Indwelling Urethral Catheter Cath placed during this visit: yes Reason for continuing: Gross Hematuria Insertion date: 07/22/18 Insertion time: 16:50 Results - Labs CBC & Chem 7: 07/24/18 06:01 07/24/18 06:01 Microbiology 07/22/18 11:16 Blood - Peripheral Aerobic Blood Culture - Preliminary No growth in 3 days 07/22/18 11:16 Blood - Peripheral Anaerobic Blood Culture - Preliminary No growth in 3 days 07/22/18 11:00 Blood - Peripheral Aerobic Blood Culture - Preliminary No growth in 3 days 07/22/18 11:00 Blood - Peripheral Anaerobic Blood Culture - Preliminary No growth in 3 days - Imaging Impressions Abdomen/Pelvis CT 07/24/18 00:00 CONCLUSION: 1. Abnormal bladder with increased density consistent with blood products and/ or tumor. A Palacios catheter is present with a small amount of air. 2. New mild to moderate bilateral hydronephrosis. Small bilateral pleural effusions right greater than left. 3. Extensive sclerotic metastatic disease with interval progression. Assessment and Plan - Plan 73 years old male UTI/ Persistent Hematuria with history of metastatic prostate cancer- catheter related Bilateral hydronephrosis on US- L > R with blood debris on bladder - t max 101.9 - per family persistent hematuria- with clots- had cystoscopy int he past continue with broad-spectrum IV antibiotics- hold antineoplastic agents for now- will follow the blood cultures and adjust the antibiotic regimen accordingly. - palacios placed- now draining clear urine - Urology consult -with persistent hematuria- and patient wants another opinion - keep palacios for now- now draining lt pink tinged urine, per occasional strings of clots Generalized weakness - PT consult - Out of bed to chair- stronger Anemia- symptomatic- multifactorial- acute on chronic -get iron studies- suggestion of chronic disease - S/P give 1 unit 07/23 - H and H up . CBC in am - Oncology ff GENI-with CKI from prostate cancer -cretinine stabilizing- likely near baseline - US with bilateral hydronephrosis L > R with blood debris in bladder - DC IVF- with leg swelling - patient taking good po Leg swelling- lungs clear - DC IVF -monitor Hypocalcemia; - Oscal 400 mg po bid - startd on VIt D generalized weakness/ fall with laceration on left forehead; routine wound care -hypertension; resume home meds. PT consult TEDs Out of bed to chair Discussed Condition With: patient and
[2018-07-25] MEDS: Levofloxacin 500 mg Premix Inj 500 MG/100 ML PIGGYBACK IV.SIG SCH (18:09)
[2018-07-25] MEDS: Latanoprost 0.005% Opth Drops 2.5 ML Bottle EACH EYE SCH (20:18)
[2018-07-26] MEDS: Piperacil/Tazo 3.375 GM Premix 50 ML IV.SIG SCH ×3 (05:05→18:56)
[2018-07-26 05:06] LABS: Baso % (Auto) 0.4 % (0.0-2.0); Eos # (Auto) 0.2 th/mm3 (0.0-0.4); Eos % (Auto) 3.2 % (0.0-4.0); Hematocrit 25.1 % (39.0-51.0); Hemoglobin 8.3 gm/dL (13.0-17.0); Lymph # (Auto) 0.8 th/mm3 (1.0-4.8); Lymph % (Auto) 14.2 % (9.0-44.0); Mean Corpuscular HGB Conc 33.2 % (32.0-36.0); Mean Corpuscular Hemoglobin 30.5 pg (27.0-34.0); Mean Corpuscular Volume 91.8 fL (80.0-100.0); Mean Platelet Volume 6.6 fL (7.0-11.0); Mono # (Auto) 0.7 th/mm3 (0.0-0.9); Neut # (Auto) 3.9 th/mm3 (1.8-7.7); Neut % (Auto) 70.2 % (16.0-70.0); Platelet Count 348 th/mm3 (150-450); Red Blood Count 2.74 mil/mm3 (4.50-5.90); Red Cell Distribution Width 15.6 % (11.6-17.2); White Blood Count 5.5 th/mm3 (4.0-11.0)
[2018-07-26 05:39] LABS: Potassium 3.7 meq/L (3.5-5.1)
[2018-07-26 05:58] LABS: Total Protein 6.2 g/dL (6.4-8.2)
--- NOTE | 2018-07-26 07:36 | P.PNONC ---
Subjective Interval history: Patient seen and examined, vital signs, labs, medications and imaging studies reviewed. 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 Subjectively; the patient reports having pain, he reports the pain at the Engel catheter insertion site at the tip of the penis. He expresses concern about the amount of blood and "stringy blood clots "being expressed through the Engel catheter. He is concerned the catheter is too small and may get clogged up due to the blood clots. Patient feels his fevers are receding, he however feels generally weak and continues to have pelvic pain. Objective Vital Signs/Intake & Output: Vital Signs 07/25/18 07:48 07/25/18 11:00 07/25/18 11:34 Temperature 99.7 F H 98.6 F Pulse Rate 62 68 69 Respiratory Rate 18 18 Blood Pressure 111/62 105/65 Pulse Oximetry 97 97 07/25/18 11:37 07/25/18 15:00 07/25/18 15:51 Temperature 98.6 F Pulse Rate 75 70 Respiratory Rate 18 18 Blood Pressure 134/73 Pulse Oximetry 100 07/25/18 17:36 07/25/18 20:00 07/26/18 00:00 Temperature 98.9 F 99.7 F H 99.0 F Pulse Rate 80 73 Respiratory Rate 20 18 Blood Pressure 142/69 H 113/57 L Pulse Oximetry 98 96 07/26/18 04:00 Temperature 98.8 F Pulse Rate 68 Respiratory Rate 18 Blood Pressure 119/63 Pulse Oximetry 96 Intake & Output 07/25/18 07/26/18 07/26/18 18:59 06:59 18:59 Intake Total 1320 / 1320 1400 / 1400 Output Total 2700 / 2700 2200 / 2200 Balance -1380 / -1380 -800 / -800 Intake: IV 100 / 100 1200 / 1200 NS Inj 1,000 ML @ 70 mls/hr IV. 1000 / 1000 CONT .[id number] [facility] Rx#:[id number] Levaquin 500 mg Premix Inj 500 100 / 100 mg In 100 ml @ 100 mls/hr IV. SIG Q24H [facility] Rx#:[id number] Zosyn 3.375 GM Premix 50 ML @ 100 / 100 100 / 100 100 mls/hr IV.SIG Q6H [facility] Rx#: [id number] Oral 1220 / 1220 200 / 200 Output: Urine 2700 / 2700 Urine Amount (Catheter) 0 / 0 Indwelling Urethral Catheter 2199 / 2199 Other: Date of Last Bowel Movement 07/25/18 07/25/18 # Bowel Movements 2 Result Diagrams: 07/26/18 03:31 07/26/18 03:31 Laboratory Results: Laboratory Results - last 24 hr 07/23/18 07/26/18 07/26/18 16:15 03:31 03:31 WBC 5.5 RBC 2.74 L Hgb 8.3 L Hct 25.1 L MCV 91.8 MCH 30.5 MCHC 33.2 RDW 15.6 Plt Count 348 MPV 6.6 L Neut % (Auto) 70.2 H Lymph % (Auto) 14.2 [place] % (Auto) 12.0 H Eos % (Auto) 3.2 Baso % (Auto) 0.4 Neut # (Auto) 3.9 Lymph # (Auto) 0.8 L [place] # (Auto) 0.7 Eos # (Auto) 0.2 Baso # (Auto) 0.0 WBC Differential . Differential Comment Auto diff final Sodium 145 Potassium 3.7 Chloride 109 H Carbon Dioxide 27.0 Anion Gap 9 BUN 16 Creatinine 1.66 H Estimated GFR 41 L Random Glucose 93 Calcium 7.0 L* Prot Corrected Calcium 7.5 L Total Protein 6.2 L MTS Gel Crossmatch See Detail Culture Results: Microbiology 07/22/18 11:16 Aerobic Blood Culture - Preliminary Blood - Peripheral No growth in 3 days Anaerobic Blood Culture - Preliminary No growth in 3 days 07/22/18 11:00 Aerobic Blood Culture - Preliminary Blood - Peripheral No growth in 3 days Anaerobic Blood Culture - Preliminary No growth in 3 days 07/22/18 11:49 Urine Culture - Final Catheterized Urine Staphylococcus epidermidis Medications: Active Medications Generic Name Dose Route Start Last Admin Trade Name Freq PRN Reason Stop Dose Admin Acetaminophen 650 mg 07/22/18 13:55 07/25/18 04:15 Tylenol PO 650 mg Q4H PRN Administration fever Bupropion HCl 150 mg 07/22/18 14:00 07/25/18 09:43 Wellbutrin Xl PO 150 mg DAILY [facility] Administration Diazepam 5 mg 07/22/18 13:57 07/25/18 04:15 Valium PO 5 mg DAILY PRN Administration Anxiety Docusate Sodium 100 mg 07/25/18 15:45 07/25/18 18:09 Colace PO 100 mg TID [facility] Administration Folic Acid 1 mg 07/24/18 12:00 07/25/18 09:44 Folic Acid PO 1 mg DAILY [facility] Administration Gabapentin 300 mg 07/23/18 21:00 07/25/18 20:15 Neurontin PO 300 mg BID [facility] Administration Heparin Sodium (Porcine) 5,000 units 07/22/18 21:00 07/25/18 20:15 Heparin Inj SQ 5,000 units Q12HR [facility] Administration Piperacillin/Tazobactam/Dextrose 50 mls @ 100 mls/hr 07/24/18 17:30 07/26/18 06:20 Zosyn 3.375 Gm Premix IV.SIG Infused Q6H [facility] Infusion Levofloxacin/Dextrose 500 mg in 100 mls @ 100 mls/hr 07/24/18 18:00 07/25/18 20:27 Levaquin 500 Mg Premix Inj IV.SIG Infused Q24H [facility] Infusion Latanoprost 1 drop 07/22/18 21:00 07/25/18 20:18 Xalatan 0.005% Opth Drops EACH EYE 1 drop HS [facility] Administration Losartan Potassium 100 mg 07/22/18 14:30 07/25/18 09:44 Cozaar PO 100 mg DAILY [facility] Administration Oxycodone HCl 5 mg 07/22/18 14:46 07/26/18 05:10 Roxicodone PO 5 mg Q4H PRN Administration breakthrough pain Oxycodone HCl 10 mg 07/22/18 22:00 07/25/18 22:42 Oxycontin Cr PO 10 mg Q12H [facility] Administration Tenofovir Disoproxil Fumarate 300 mg 07/24/18 09:00 07/24/18 08:27 Viread PO 300 mg EVERY OTHER DAY [facility] Administration Tolterodine Tartrate 4 mg 07/24/18 13:00 07/25/18 09:51 Detrol La PO 4 mg DAILY [facility] Administration Vitamin D 2,000 unit 07/25/18 09:00 07/25/18 09:51 Vitamin D3 PO 2,000 unit DAILY [facility] Administration Objective Remarks: GENERAL: Elderly male, laying in bed, appears to be in no acute distress. SKIN: Pale, warm and dry. HEAD: Normocephalic. EYES: Conjunctivae are pale, no scleral icterus. No injection or drainage. NECK: Supple, trachea midline. No JVD or lymphadenopathy. LYMPHATIC: No adenopathy. CARDIOVASCULAR: Regular rate and rhythm without murmurs. RESPIRATORY: Breath sounds equal bilaterally. No accessory muscle use. GASTROINTESTINAL: Abdomen soft, non-tender, nondistended. EXTREMITIES: No cyanosis, or edema. MUSCULOSKELETAL: Adequate muscle tone. NEUROLOGICAL: No obvious focal deficit. Awake, alert, and oriented x3. PSYCHIATRIC: Appropriate mood and affect; insight and judgment normal. Urogenital exam: Engel catheter in place, tubing of the Engel catheter contains clear red urine with sediment which is red in color, stringy mucoid/clot-like material in the Engel tube. No active bleeding from the external urethral meatus. There is tenderness in the inguinal areas bilaterally and in the suprapubic areas. No obvious masses noted. Assessment/Plan - Plan Mr. Queen Is a 73-year-old man with a diagnosis of metastatic prostate carcinoma , he has had an excellent response to combination therapy consisting of leuprolide and Xtandi. His PSA levels have been less than 0.1 ng/dL over the past several months. He has extensive metastatic disease burden involving his axial skeleton especially his pelvis. Most recent PET CT scan revealed most of his previously active metastatic disease to be dormant, he however had intense hypermetabolic activity localized to the prostate and to the bladder. In late June he underwent cystoscopy for workup of hematuria with his former urologist Dr. Parmar, no obvious cause for hematuria was identified. He is now in the hospital with fevers, hematuria and pelvic pain. Clinically he has suspected prostatitis and is on broad-spectrum antibiotics with Zosyn and levofloxacin. Urine cultures and blood cultures are negative thus far other than forced staph epidermidis. CT scan of the abdomen/pelvis revealed no obvious cause for the hematuria. Urology has been following and I recommended bladder irrigation. Recommendations: 1. Fevers: Secondary to suspected prostatitis continue broad-spectrum antibiotics. 2. Hematuria: I have requested nursing staff to contact urology for specific instructions regarding bladder irrigation. I would also like to discuss the case with the urology attending to determine if an inpatient cystoscopy may be of help to further evaluate the cause of bleeding. If hematuria continues I would advise discontinuation of heparin; the patient is on this for DVT prophylaxis. 3. Pain control: Continue long and short acting opioids. 4. Metastatic prostate carcinoma: Obtain PSA levels and testosterone levels.
[2018-07-26] MEDS: oxyCODONE 10 MG Controlled Release Tablet PO SCH ×2 (09:06→22:20)
[2018-07-26] MEDS: Tenofovir 300 MG Tablet PO SCH (09:08)
[2018-07-26] MEDS: Tolterodine Tartrate LA 4 MG Capsule PO SCH (09:09)
[2018-07-26] MEDS: Gabapentin 300 MG Capsule PO SCH ×2 (09:11→22:19)
[2018-07-26] MEDS: Folic Acid 1 MG Tablet PO SCH (09:11)
[2018-07-26] MEDS: Docusate Sodium 100 MG Capsule PO SCH ×3 (09:11→17:00)
[2018-07-26] MEDS: Heparin - SQ 10,000 UNITS/ML Vial SQ SCH ×2 (09:12→22:19)
[2018-07-26] MEDS: buPROPion 150 MG XL 24 HR Tablet PO SCH (09:12)
[2018-07-26] MEDS: Calcium Carbonate 500 MG Tablet PO SCH ×2 (09:12→22:19)
--- NOTE | 2018-07-26 10:24 | P.PN ---
Subjective Interval history: Follow-up for hematuria in a patient with a history of metastatic prostate carcinoma. Patient reports some pain at the Engel insertion site but improved. No fever or chills. His Engel catheter continues to drain bloody fluid. He wants to get up and sitting the chair today and try to eat breakfast. Physical Exam Vital signs: Vital Signs 07/25/18 11:00 07/25/18 11:34 07/25/18 11:37 Temperature 98.6 F Pulse Rate 68 69 Respiratory Rate 18 18 Blood Pressure 105/65 Pulse Oximetry 97 07/25/18 15:00 07/25/18 15:51 07/25/18 17:36 Temperature 98.6 F 98.9 F Pulse Rate 75 70 Respiratory Rate 18 Blood Pressure 134/73 Pulse Oximetry 100 07/25/18 20:00 07/26/18 00:00 07/26/18 00:11 Temperature 99.7 F H 99.0 F Pulse Rate 80 73 70 Respiratory Rate 20 18 Blood Pressure 142/69 H 113/57 L Pulse Oximetry 98 96 07/26/18 04:00 07/26/18 04:26 07/26/18 07:00 Temperature 98.8 F Pulse Rate 68 67 64 Respiratory Rate 18 Blood Pressure 119/63 Pulse Oximetry 96 07/26/18 08:00 Temperature Pulse Rate 64 Respiratory Rate Blood Pressure Pulse Oximetry Intake & Output 07/25/18 07/26/18 07/26/18 18:59 06:59 18:59 Intake Total 1320 / 1320 1400 / 1400 Output Total 2700 / 2700 2200 / 2200 Balance -1380 / -1380 -800 / -800 Intake: IV 100 / 100 1200 / 1200 NS Inj 1,000 ML @ 70 mls/hr IV. 1000 / 1000 CONT .[id number] [facility] Rx#:[id number] Levaquin 500 mg Premix Inj 500 100 / 100 mg In 100 ml @ 100 mls/hr IV. SIG Q24H [facility] Rx#:[id number] Zosyn 3.375 GM Premix 50 ML @ 100 / 100 100 / 100 100 mls/hr IV.SIG Q6H [facility] Rx#: [id number] Oral 1220 / 1220 200 / 200 Output: Urine 2700 / 2700 Urine Amount (Catheter) 0 / 2200 Indwelling Urethral Catheter [id number] Other: Date of Last Bowel Movement 07/25/18 07/25/18 # Bowel Movements 2 Narrative: GENERAL: Alert, oriented 3, NAD. SKIN: Warm and dry. HEAD: Normocephalic. EYES: No scleral icterus. No injection or drainage. NECK: Supple, trachea midline. No JVD or lymphadenopathy. CARDIOVASCULAR: Regular rate and rhythm without murmurs, gallops, or rubs. RESPIRATORY: Breath sounds equal bilaterally. No accessory muscle use. GASTROINTESTINAL: Abdomen soft, tender to palpation in the lower abdomen, nondistended. MUSCULOSKELETAL: No cyanosis, or edema. Tender to palpation over lower extremities. BACK: Nontender without obvious deformity. No CVA tenderness. - Urinary Catheter Management Indwelling Urethral Catheter Cath placed during this visit: yes Reason for continuing: Gross Hematuria Insertion date: 07/22/18 Insertion time: 16:50 Results - Labs CBC & Chem 7: 07/26/18 03:31 07/26/18 03:31 Laboratory Results - last 24 hr 07/23/18 07/26/18 07/26/18 16:15 03:31 03:31 WBC 5.5 RBC 2.74 L Hgb 8.3 L Hct 25.1 L MCV 91.8 MCH 30.5 MCHC 33.2 RDW 15.6 Plt Count 348 MPV 6.6 L Neut % (Auto) 70.2 H Lymph % (Auto) 14.2 [place] % (Auto) 12.0 H Eos % (Auto) 3.2 Baso % (Auto) 0.4 Neut # (Auto) 3.9 Lymph # (Auto) 0.8 L [place] # (Auto) 0.7 Eos # (Auto) 0.2 Baso # (Auto) 0.0 WBC Differential . Differential Comment Auto diff final Sodium 145 Potassium 3.7 Chloride 109 H Carbon Dioxide 27.0 Anion Gap 9 BUN 16 Creatinine 1.66 H Estimated GFR 41 L Random Glucose 93 Calcium 7.0 L* Prot Corrected Calcium 7.5 L Total Protein 6.2 L MTS Gel Crossmatch See Detail Microbiology 07/22/18 11:16 Blood - Peripheral Aerobic Blood Culture - Preliminary No growth in 3 days 07/22/18 11:16 Blood - Peripheral Anaerobic Blood Culture - Preliminary No growth in 3 days 07/22/18 11:00 Blood - Peripheral Aerobic Blood Culture - Preliminary No growth in 3 days 07/22/18 11:00 Blood - Peripheral Anaerobic Blood Culture - Preliminary No growth in 3 days - Imaging Chest X-Ray 07/22/18 11:00 CONCLUSION: The lungs are grossly clear. Sclerotic metastatic disease. Abdomen/Bladder Ultrasound 07/23/18 00:00 CONCLUSION: 1. Significant debris within the bladder likely blood. Mild bilateral hydronephrosis left greater than right. Abdomen/Pelvis CT 07/24/18 00:00 CONCLUSION: 1. Abnormal bladder with increased density consistent with blood products and/ or tumor. A Engel catheter is present with a small amount of air. 2. New mild to moderate bilateral hydronephrosis. Small bilateral pleural effusions right greater than left. 3. Extensive sclerotic metastatic disease with interval progression. Assessment and Plan - Plan Mr. Queen is a pleasant 73-year-old male with a history of metastatic prostate carcinoma who was admitted to the hospital due to fever, hematuria and pelvic pain. Infectious disease as well as oncology and urology have been following patient. Patient is currently on levofloxacin and Zosyn for suspected prostatitis. Acute prostatitis -Continue levofloxacin 500 mg daily, Zosyn 3.375 g every 6 hours. -ID is following. Urine culture showed staph epi which is not a typical organism to cause prostatitis. Persistent hematuria Bilateral hydronephrosis on ultrasound left greater than right -Neurology has been following patient. We will try to get in touch with urology today to see if inpatient cystoscopy would be helpful. -Neurology currently recommends manual irrigation twice daily. Metastatic prostate carcinoma -Oncology is following. Patient is has had good response to leuprolide and Enzalutamide (Xtandi). -Continue oxycodone for pain control. Hypocalcemia -Will check his Magnesium level. Currently on Oral Calcium and Vitamin D. Calcium improved from 7.1 --> 7.5. -If Mg level below 2.0, we will replace. Discharge Plan: Hopefully home with home health per PT recs. Full code. Heparin SQ.
[2018-07-26] MEDS: Iron Sucrose Inj 200 MG in Sodium Chlor 0.9% Inj 100 ML IV.SIG SCH (12:29)
[2018-07-26] MEDS: Acetaminophen 325 MG Tablet PO PRN (16:54)
[2018-07-26] MEDS: Levofloxacin 500 mg Premix Inj 500 MG/100 ML PIGGYBACK IV.SIG SCH (17:00)
[2018-07-26] MEDS ORDERED: Morphine Inj 4 MG/ML Vial IV.PUSH PRN (17:46)
[2018-07-26] MEDS: HYDROmorphone PF Inj 2 MG/ML Vial IV.PUSH PRN (22:21)
[2018-07-27] MEDS: Piperacil/Tazo 3.375 GM Premix 50 ML IV.SIG SCH ×5 (00:50→23:47)
[2018-07-27] MEDS: diazePAM 5 MG Tablet PO PRN (00:56)
[2018-07-27] MEDS: HYDROmorphone PF Inj 2 MG/ML Vial IV.PUSH PRN ×2 (02:26→10:37)
[2018-07-27 04:04] LABS: Free PSA/PSA Ratio 0 ratio
[2018-07-27] MEDS: Latanoprost 0.005% Opth Drops 2.5 ML Bottle EACH EYE SCH ×2 (05:30→21:44)
[2018-07-27 07:09] LABS: Baso % (Auto) 0.3 % (0.0-2.0); Eos # (Auto) 0.2 th/mm3 (0.0-0.4); Eos % (Auto) 2.5 % (0.0-4.0); Hematocrit 28.4 % (39.0-51.0); Hemoglobin 9.3 gm/dL (13.0-17.0); Lymph # (Auto) 1.2 th/mm3 (1.0-4.8); Lymph % (Auto) 13.5 % (9.0-44.0); Mean Corpuscular HGB Conc 32.7 % (32.0-36.0); Mean Corpuscular Volume 91.6 fL (80.0-100.0); Mean Platelet Volume 6.7 fL (7.0-11.0); Mono % (Auto) 11.9 % (0.0-8.0); Neut # (Auto) 6.3 th/mm3 (1.8-7.7); Neut % (Auto) 71.8 % (16.0-70.0); Platelet Count 428 th/mm3 (150-450); Red Cell Distribution Width 16.2 % (11.6-17.2); White Blood Count 8.8 th/mm3 (4.0-11.0)
[2018-07-27 07:19] LABS: Calcium 7.2 mg/dL (8.5-10.1); Carbon Dioxide 24.1 meq/L (21.0-32.0); Potassium 3.6 meq/L (3.5-5.1)
[2018-07-27 07:48] LABS: Total Protein 7.3 g/dL (6.4-8.2)
[2018-07-27 08:01] LABS: Eosinophils 3 % (0-4); Lymphocytes 13 % (9-44); Monocytes 4 % (0-8); Myelocytes 2 % (0-0)
[2018-07-27 08:02] LABS: Platelet Morphology Normal (Normal)
--- NOTE | 2018-07-27 08:23 | P.PN ---
Subjective Interval history: Follow up for persistent hematuria, metastatic prostate cancer. Patient continues to have lower abd pain. Also, continues to have hematuria. No fever, chills. Physical Exam Vital signs: Vital Signs 07/26/18 11:00 07/26/18 15:00 07/26/18 16:00 Temperature 98.9 F 98.1 F 98.1 F Pulse Rate 84 86 82 Respiratory Rate 18 18 18 Blood Pressure 124/66 139/66 139/66 Pulse Oximetry 98 97 97 07/26/18 19:00 07/26/18 20:00 07/26/18 23:00 Temperature 98.6 F Pulse Rate 74 71 70 Respiratory Rate 18 Blood Pressure 105/64 Pulse Oximetry 98 07/27/18 00:00 07/27/18 03:00 Temperature 98.4 F Pulse Rate 76 72 Respiratory Rate 18 Blood Pressure 107/57 L Pulse Oximetry 96 Intake & Output 07/26/18 07/27/18 07/27/18 18:59 06:59 18:59 Intake Total 1820 / 1820 700 / 700 Output Total 3100 / 3100 1999 Balance -1280 / -1280 -1300 / -1300 Weight 82.6 kg Intake: IV 260 / 260 100 / 100 Venofer Inj 200 MG In NS Inj 110 / 110 100 ML @ 110 mls/hr IV.SIG Q24H [facility] Rx#:[id number] Levaquin 500 mg Premix Inj 500 100 / 100 mg In 100 ml @ 100 mls/hr IV. SIG Q24H [facility] Rx#:[id number] Zosyn 3.375 GM Premix 50 ML @ 50 / 50 100 / 100 100 mls/hr IV.SIG Q6H [facility] Rx#: [id number] Oral 1560 / 1560 600 / 600 Output: Urine 3100 / 3100 Urine Amount (Catheter) 1999 Indwelling Urethral Catheter 1999 Narrative: GENERAL: Alert, oriented 3, NAD. SKIN: Warm and dry. HEAD: Normocephalic. EYES: No scleral icterus. No injection or drainage. NECK: Supple, trachea midline. No JVD or lymphadenopathy. CARDIOVASCULAR: Regular rate and rhythm without murmurs, gallops, or rubs. RESPIRATORY: Breath sounds equal bilaterally. No accessory muscle use. GASTROINTESTINAL: Abdomen soft, tender to palpation in the lower abdomen, nondistended. MUSCULOSKELETAL: No cyanosis, or edema. Tender to palpation over lower extremities. : Significant hematuria present. BACK: Nontender without obvious deformity. No CVA tenderness. - Urinary Catheter Management Indwelling Urethral Catheter Cath placed during this visit: yes Reason for continuing: Gross Hematuria Insertion date: 07/22/18 Insertion time: 16:50 Results - Labs CBC & Chem 7: 07/27/18 06:26 07/27/18 06:26 Laboratory Results - last 24 hr 07/26/18 07/26/18 07/27/18 03:31 10:22 06:26 WBC 8.8 RBC 3.10 L Hgb 9.3 L Hct 28.4 L MCV 91.6 MCH 30.0 MCHC 32.7 RDW 16.2 Plt Count 428 MPV 6.7 L Prelim Diff (Auto) Slide review pending Neut % (Auto) 71.8 H Lymph % (Auto) 13.5 Hood % (Auto) 11.9 H Eos % (Auto) 2.5 Baso % (Auto) 0.3 Neut # (Auto) 6.3 Lymph # (Auto) 1.2 Hood # (Auto) 1.0 H Eos # (Auto) 0.2 Baso # (Auto) 0.0 WBC Differential Manual diff final Seg Neuts % (Manual) 74 H Band Neuts % (Manual) 4 Lymphocytes % (Manual) 13 Monocytes % (Manual) 4 Eosinophils % (Manual) 3 Myelocytes % (Man) 2 H Abs Neuts (Manual) 7.0 Differential Comment . Platelet Estimate High H Platelet Morphology Normal Sodium Potassium Chloride Carbon Dioxide Anion Gap BUN Creatinine Estimated GFR Random Glucose Calcium Prot Corrected Calcium Magnesium 2.1 Total Protein Free PSA Less than 0.1 Total PSA Less than 0.1 PSA Free/Total Ratio 0 07/27/18 06:26 WBC RBC Hgb Hct MCV MCH MCHC RDW Plt Count MPV Prelim Diff (Auto) Neut % (Auto) Lymph % (Auto) Hood % (Auto) Eos % (Auto) Baso % (Auto) Neut # (Auto) Lymph # (Auto) Hood # (Auto) Eos # (Auto) Baso # (Auto) WBC Differential Seg Neuts % (Manual) Band Neuts % (Manual) Lymphocytes % (Manual) Monocytes % (Manual) Eosinophils % (Manual) Myelocytes % (Man) Abs Neuts (Manual) Differential Comment Platelet Estimate Platelet Morphology Sodium 140 Potassium 3.6 Chloride 104 Carbon Dioxide 24.1 Anion Gap 12 BUN 16 Creatinine 2.03 H Estimated GFR 32 L Random Glucose 109 H Calcium 7.2 L* Prot Corrected Calcium 7.2 L* Magnesium Total Protein 7.3 D Free PSA Total PSA PSA Free/Total Ratio Microbiology 07/26/18 19:31 Blood - Peripheral Anaerobic Blood Culture - Final QNS - See aerobic report. 07/22/18 11:16 Blood - Peripheral Aerobic Blood Culture - Preliminary No growth in 4 days 07/22/18 11:16 Blood - Peripheral Anaerobic Blood Culture - Preliminary No growth in 4 days 07/22/18 11:00 Blood - Peripheral Aerobic Blood Culture - Preliminary No growth in 4 days 07/22/18 11:00 Blood - Peripheral Anaerobic Blood Culture - Preliminary No growth in 4 days - Imaging Chest X-Ray 07/22/18 11:00 CONCLUSION: The lungs are grossly clear. Sclerotic metastatic disease. Abdomen/Bladder Ultrasound 07/23/18 00:00 CONCLUSION: 1. Significant debris within the bladder likely blood. Mild bilateral hydronephrosis left greater than right. Abdomen/Pelvis CT 07/24/18 00:00 CONCLUSION: 1. Abnormal bladder with increased density consistent with blood products and/ or tumor. A Engel catheter is present with a small amount of air. 2. New mild to moderate bilateral hydronephrosis. Small bilateral pleural effusions right greater than left. 3. Extensive sclerotic metastatic disease with interval progression. Assessment and Plan - Plan Mr. Queen is a pleasant 73-year-old male with a history of metastatic prostate carcinoma who was admitted to the hospital due to fever, hematuria and pelvic pain. Infectious disease as well as oncology and urology have been following patient. Patient is currently on levofloxacin and Zosyn for suspected prostatitis. Acute prostatitis -Continue levofloxacin 500 mg daily, Zosyn 3.375 g every 6 hours. -ID is following. Urine culture showed staph epi which is not a typical organism to cause prostatitis. Persistent hematuria Bilateral hydronephrosis on ultrasound left greater than right -Urology has been following patient. Unfortunately, we were unable to get in touch with Urology attending yesterday -Patient continues to have significant hematuria, pain despite manual irrigation recommended by Urology mid-level. -After discussing with patient and Oncologist and based on Patient's preference - we will request a different urology group to see patient. - Will consult [facility]. I have discussed with Dr. Loyda Miranda. Metastatic prostate carcinoma -Oncology is following. Patient is has had good response to leuprolide and Enzalutamide (Xtandi). -Continue oxycodone for pain control. Hypocalcemia -Will check his Magnesium level. Currently on Oral Calcium and Vitamin D. Calcium 7.1 --> 7.5 --> 7.2. -Mg is 2.1. Will replace Calcium with 2 g of Calcium Gluconate IV. Discharge Plan: Hopefully home with home health per PT recs. Full code. Heparin SQ.
[2018-07-27] MEDS: Heparin - SQ 10,000 UNITS/ML Vial SQ SCH (08:32)
[2018-07-27] MEDS: Folic Acid 1 MG Tablet PO SCH (08:32)
[2018-07-27] MEDS: Docusate Sodium 100 MG Capsule PO SCH ×3 (08:32→17:21)
[2018-07-27] MEDS: Gabapentin 300 MG Capsule PO SCH ×2 (08:33→21:43)
[2018-07-27] MEDS: buPROPion 150 MG XL 24 HR Tablet PO SCH (08:33)
[2018-07-27] MEDS: Tolterodine Tartrate LA 4 MG Capsule PO SCH (08:33)
[2018-07-27] MEDS: Calcium Carbonate 500 MG Tablet PO SCH ×2 (08:33→21:43)
[2018-07-27] MEDS ORDERED: Calcium Gluconate Inj 2 GM in Sodium Chlor 0.9% Inj 100 ML IV.SIG ONE (10:00)
[2018-07-27] MEDS: oxyCODONE 10 MG Controlled Release Tablet PO SCH ×2 (10:16→21:43)
[2018-07-27] MEDS: Iron Sucrose Inj 200 MG in Sodium Chlor 0.9% Inj 100 ML IV.SIG SCH (10:16)
--- NOTE | 2018-07-27 13:00 | P.PNURO ---
Subjective Patient symptoms today: Pt feeling much better now that 24 3-way palacios has been placed and clots have been irrigated. Now on CBI with pink urine. Objective Vital Signs: Vital Signs 07/26/18 15:00 07/26/18 16:00 07/26/18 19:00 Temperature 98.1 F 98.1 F Pulse Rate 86 82 74 Respiratory Rate 18 18 Blood Pressure 139/66 139/66 Pulse Oximetry 97 97 07/26/18 20:00 07/26/18 23:00 07/27/18 00:00 Temperature 98.6 F 98.4 F Pulse Rate 71 70 76 Respiratory Rate 18 18 Blood Pressure 105/64 107/57 L Pulse Oximetry 98 96 07/27/18 03:00 Temperature Pulse Rate 72 Respiratory Rate Blood Pressure Pulse Oximetry Intake & Output 07/26/18 07/27/18 07/27/18 18:59 06:59 18:59 Intake Total 1820 / 1820 700 / 700 50 / 50 Output Total 3100 / 3100 1999 Balance -1280 / -1280 -1300 / -1300 50 / 50 Weight 82.6 kg Intake: IV 260 / 260 100 / 100 50 / 50 Venofer Inj 200 MG In NS Inj 110 / 110 100 ML @ 110 mls/hr IV.SIG Q24H [facility] Rx#:[id number] Levaquin 500 mg Premix Inj 500 100 / 100 mg In 100 ml @ 100 mls/hr IV. SIG Q24H [facility] Rx#:[id number] Zosyn 3.375 GM Premix 50 ML @ 50 / 50 100 / 100 50 / 50 100 mls/hr IV.SIG Q6H [facility] Rx#: [id number] Oral 1560 / 1560 600 / 600 Output: Urine 3100 / 3100 Urine Amount (Catheter) 1999 Indwelling Urethral Catheter 1999 Result Diagrams: 07/27/18 06:26 07/27/18 06:26 Medications and IVs: Active Medications Generic Name Dose Route Start Last Admin Trade Name Freq PRN Reason Stop Dose Admin Acetaminophen 650 mg 07/22/18 13:55 07/26/18 16:54 Tylenol PO 650 mg Q4H PRN Administration fever Bupropion HCl 150 mg 07/22/18 14:00 07/27/18 08:33 Wellbutrin Xl PO 150 mg DAILY [facility] Administration Diazepam 5 mg 07/22/18 13:57 07/27/18 00:56 Valium PO 5 mg DAILY PRN Administration Anxiety Docusate Sodium 100 mg 07/25/18 15:45 07/27/18 08:32 Colace PO 100 mg TID [facility] Administration Folic Acid 1 mg 07/24/18 12:00 07/27/18 08:32 Folic Acid PO 1 mg DAILY [facility] Administration Gabapentin 300 mg 07/23/18 21:00 07/27/18 08:33 Neurontin PO 300 mg BID [facility] Administration Heparin Sodium (Porcine) 5,000 units 07/22/18 21:00 07/27/18 08:32 Heparin Inj SQ 5,000 units Q12HR [facility] Administration Hydromorphone HCl 0.5 mg 07/26/18 19:30 07/27/18 10:37 Dilaudid Pf Inj IV.PUSH 0.5 mg Q4H PRN Administration BREAKTHROUGH PAIN Piperacillin/Tazobactam/Dextrose 50 mls @ 100 mls/hr 07/24/18 17:30 07/27/18 08:33 Zosyn 3.375 Gm Premix IV.SIG Infused Q6H [facility] Infusion Levofloxacin/Dextrose 500 mg in 100 mls @ 100 mls/hr 07/24/18 18:00 07/26/18 18:00 Levaquin 500 Mg Premix Inj IV.SIG Infused Q24H [facility] Infusion Iron Sucrose 200 mg/ Sodium 110 mls @ 110 mls/hr 07/26/18 10:00 07/27/18 10: 16 Chloride IV.SIG 07/28/18 10:59 110 mls/hr Q24H [facility] Administration Latanoprost 1 drop 07/22/18 21:00 07/27/18 05:30 Xalatan 0.005% Opth Drops EACH EYE Not Given HS [facility] Losartan Potassium 100 mg 07/22/18 14:30 07/27/18 08:32 Cozaar PO 100 mg DAILY [facility] Administration Oxycodone HCl 5 mg 07/22/18 14:46 07/27/18 08:30 Roxicodone PO 5 mg Q4H PRN Administration breakthrough pain Oxycodone HCl 10 mg 07/22/18 22:00 07/27/18 10:16 Oxycontin Cr PO 10 mg Q12H [facility] Administration Pom: (Lubiprostone [ 0 each 07/22/18 21:00 Amitiza] 24 Mcg) PO BID [facility] Tenofovir Disoproxil Fumarate 300 mg 07/24/18 09:00 07/26/18 09:08 Viread PO 300 mg EVERY OTHER DAY [facility] Administration Tolterodine Tartrate 4 mg 07/24/18 13:00 07/27/18 08:33 Detrol La PO 4 mg DAILY [facility] Administration Vitamin D 2,000 unit 07/25/18 09:00 07/27/18 08:33 Vitamin D3 PO 2,000 unit DAILY [facility] Administration Objective Remarks: IVONNE RRR Clear lungs Palacios is in place, urine is light pink 07/27 Abd:soft,nt,nd Palacios on CBI; now with pink urine; clots cleared. Assessment and Plan - Plan 73y.o M with other medical issues listed in HPI Urology consulted for hematuria, which is resolving now No additional recommendations, same as below - Continue care as per primary team - No acute intervention needed - Hematuria can be related to self cath and UTI as well as to previous radiation. - Continue current treatment, follow ID recommendations - Manual irrigation of the bladder may help to get rid of bladder clots/debris seen in the bladder on Sono. Do it BID - Pt to see his urologist after d/c for further management, may need cysto as outpt. 07/27/18 73 y.o male with metastatic CaP with gross hematuria 24F 3-way palacios in place; clots irrigated and CBI started Hold SQ Heparin; will order SCD's instead Will need cystoscopy at later date and may need HBO as outpt to help RX Radiation cystitis Will follow.
[2018-07-27] MEDS: Acetaminophen 325 MG Tablet PO PRN (13:09)
[2018-07-27] MEDS: Levofloxacin 500 mg Premix Inj 500 MG/100 ML PIGGYBACK IV.SIG SCH (17:21)
--- NOTE | 2018-07-27 19:55 | P.PNID ---
Subjective Remarks: fever up to 101.2 sp maual bladder irrigation with passing a clot feels better now co constipation urine clearing Antibiotics: zosyn levaquin Past Medical History: prostate ca Allergies/Adverse Reactions: Allergies morphine Allergy (Severe, Verified 07/22/18 11:48) MORPHINE ALLERGY ADDED 12/19/07 @1500 - N/V Objective Vital Signs 07/26/18 20:00 07/26/18 23:00 07/27/18 00:00 Temperature 98.6 F 98.4 F Pulse Rate 71 70 76 Respiratory Rate 18 18 Blood Pressure 105/64 107/57 L Pulse Oximetry 98 96 07/27/18 03:00 07/27/18 07:00 07/27/18 08:00 Temperature 98.7 F Pulse Rate 72 101 H 82 Respiratory Rate 20 Blood Pressure 144/72 H Pulse Oximetry 99 07/27/18 12:00 07/27/18 13:10 07/27/18 16:00 Temperature 99.7 F H 101.2 F H 99.7 F H Pulse Rate 90 84 Respiratory Rate 20 18 Blood Pressure 115/65 103/66 Pulse Oximetry 99 96 Intake & Output 07/27/18 07/27/18 07/28/18 06:59 18:59 06:59 Intake Total 700 / 700 2280 / 2280 Output Total 1999 1700 / 1700 Balance -1300 / -1300 580 / 580 Weight 82.6 kg Intake: IV 100 / 100 480 / 480 Calcium Gluconate Inj 2 GM In 120 / 120 NS Inj 100 ML @ 120 mls/hr IV. SIG ONCE ONE Rx#:[id number] Venofer Inj 200 MG In NS Inj 110 / 110 100 ML @ 110 mls/hr IV.SIG Q24H [facility] Rx#:[id number] Levaquin 500 mg Premix Inj 500 100 / 100 mg In 100 ml @ 100 mls/hr IV. SIG Q24H [facility] Rx#:[id number] Zosyn 3.375 GM Premix 50 ML @ 100 / 100 150 / 150 100 mls/hr IV.SIG Q6H [facility] Rx#: [id number] Oral 600 / 600 1800 / 1800 Output: Urine Amount (Catheter) 1999 1700 / 1700 Indwelling Urethral Catheter 1999 1700 / 1700 Other: Bladder Irrigation Fluid - Amount Instilled Indwelling Urethral Catheter 12,000 Bladder Irrigation Fluid - Amount Drained Indwelling Urethral Catheter 13,700 Date of Last Bowel Movement 07/25/18 07/26/18 19:31 Blood - Peripheral Aerobic Blood Culture - Preliminary No growth in 1 day 07/26/18 19:31 Blood - Peripheral Anaerobic Blood Culture - Final QNS - See aerobic report. 07/26/18 19:25 Blood - Peripheral Aerobic Blood Culture - Preliminary No growth in 1 day 07/26/18 19:25 Blood - Peripheral Anaerobic Blood Culture - Preliminary No growth in 1 day 07/22/18 11:16 Blood - Peripheral Aerobic Blood Culture - Final No growth in 5 days 07/22/18 11:16 Blood - Peripheral Anaerobic Blood Culture - Final No growth in 5 days 07/22/18 11:00 Blood - Peripheral Aerobic Blood Culture - Final No growth in 5 days 07/22/18 11:00 Blood - Peripheral Anaerobic Blood Culture - Final No growth in 5 days Lab - Hematology Results 07/26/18 07/27/18 03:31 06:26 WBC 5.5 8.8 RBC 2.74 L 3.10 L Hgb 8.3 L 9.3 L Hct 25.1 L 28.4 L MCV 91.8 91.6 MCH 30.5 30.0 MCHC 33.2 32.7 RDW 15.6 16.2 Plt Count 348 428 MPV 6.6 L 6.7 L Prelim Diff (Auto) Slide review pending Neut % (Auto) 70.2 H 71.8 H Lymph % (Auto) 14.2 13.5 Orange % (Auto) 12.0 H 11.9 H Eos % (Auto) 3.2 2.5 Baso % (Auto) 0.4 0.3 Neut # (Auto) 3.9 6.3 Lymph # (Auto) 0.8 L 1.2 Orange # (Auto) 0.7 1.0 H Eos # (Auto) 0.2 0.2 Baso # (Auto) 0.0 0.0 WBC Differential . Manual diff final Seg Neuts % (Manual) 74 H Band Neuts % (Manual) 4 Lymphocytes % (Manual) 13 Monocytes % (Manual) 4 Eosinophils % (Manual) 3 Myelocytes % (Man) 2 H Abs Neuts (Manual) 7.0 Differential Comment Auto diff final . Platelet Estimate High H Platelet Morphology Normal Lab - Chemistry Results 07/26/18 07/26/1818 03:31 03:31 10:22 Sodium 145 Potassium 3.7 Chloride 109 H Carbon Dioxide 27.0 Anion Gap 9 BUN 16 Creatinine 1.66 H Estimated GFR 41 L Random Glucose 93 Calcium 7.0 L* Prot Corrected Calcium 7.5 L Magnesium 2.1 Total Protein 6.2 L Free PSA Less than 0.1 Total PSA Less than 0.1 PSA Free/Total Ratio 0 07/27/18 06:26 Sodium 140 Potassium 3.6 Chloride 104 Carbon Dioxide 24.1 Anion Gap 12 BUN 16 Creatinine 2.03 H Estimated GFR 32 L Random Glucose 109 H Calcium 7.2 L* Prot Corrected Calcium 7.2 L* Magnesium Total Protein 7.3 D Free PSA Total PSA PSA Free/Total Ratio Imaging: ITS Impressions Chest X-Ray 07/22/18 11:00 CONCLUSION: The lungs are grossly clear. Sclerotic metastatic disease. Abdomen/Bladder Ultrasound 07/23/18 00:00 CONCLUSION: 1. Significant debris within the bladder likely blood. Mild bilateral hydronephrosis left greater than right. Abdomen/Pelvis CT 07/24/18 00:00 CONCLUSION: 1. Abnormal bladder with increased density consistent with blood products and/ or tumor. A Palacios catheter is present with a small amount of air. 2. New mild to moderate bilateral hydronephrosis. Small bilateral pleural effusions right greater than left. 3. Extensive sclerotic metastatic disease with interval progression. Physical Exam: GENERAL: NAD chronically ill appearing SKIN: Warm and dry. HEAD: Atraumatic. Normocephalic. EYES: Pupils equal and round. No scleral icterus. No injection or drainage. ENT: No nasal bleeding or discharge. Mucous membranes pink and moist. NECK: Trachea midline. No JVD. CARDIOVASCULAR: Regular rate and rhythm. RESPIRATORY: No accessory muscle use. Clear to auscultation. Breath sounds equal bilaterally. GASTROINTESTINAL: Abdomen soft, quite tender to palpation in lower quadrants + moderately distended. Hepatic and splenic margins not palpable. : palacios in place with pale pink urine MUSCULOSKELETAL: Extremities without clubbing, cyanosis, + 2+ soft pitting edema. No obvious deformities. NEUROLOGICAL: Awake and alert. No obvious cranial nerve deficits. Motor grossly within normal limits. Five out of 5 muscle strength in the arms and legs. Normal speech. PSYCHIATRIC: Appropriate mood and affect; insight and judgment normal. Assessment and Plan - Plan Metastatic prostate cancer FUO (6 weeks) Hematuria Probably UTI - Staph epi not a typical pathogen GENI cont levaquin cont add zosyn dc cefepime dw pt dw Raymundo Lindquist
[2018-07-28] MEDS: Piperacil/Tazo 3.375 GM Premix 50 ML IV.SIG SCH (05:21)
--- NOTE | 2018-07-28 08:27 | P.PNURO ---
Subjective Patient symptoms today: Pt resting comfortably. No complaints. Objective Vital Signs: Vital Signs 07/27/18 12:00 07/27/18 13:10 07/27/18 16:00 Temperature 99.7 F H 101.2 F H 99.7 F H Pulse Rate 90 84 Respiratory Rate 20 18 Blood Pressure 115/65 103/66 Pulse Oximetry 99 96 07/27/18 19:16 07/27/18 20:00 07/27/18 22:13 Temperature 100.5 F H Pulse Rate 71 89 Respiratory Rate 18 16 Blood Pressure 93/52 L Pulse Oximetry 96 07/27/18 23:02 07/27/18 23:51 07/28/18 03:50 Temperature 98.5 F Pulse Rate 83 74 Respiratory Rate 16 18 Blood Pressure 105/54 L Pulse Oximetry 94 L 07/28/18 04:00 07/28/18 04:07 07/28/18 05:51 Temperature 98.8 F Pulse Rate 77 71 Respiratory Rate 16 18 Blood Pressure 102/54 L Pulse Oximetry 96 07/28/18 07:27 07/28/18 07:57 Temperature Pulse Rate 73 Respiratory Rate 18 Blood Pressure Pulse Oximetry Intake & Output 07/27/18 07/28/18 07/28/18 18:59 06:59 18:59 Intake Total 2280 / 2280 220 / 220 Output Total 1700 / 1700 8150 / 8150 Balance 580 / 580 -7930 / -7930 Weight 84 kg Intake: IV 480 / 480 100 / 100 Calcium Gluconate Inj 2 GM In 120 / 120 NS Inj 100 ML @ 120 mls/hr IV. SIG ONCE ONE Rx#:[id number] Venofer Inj 200 MG In NS Inj 110 / 110 100 ML @ 110 mls/hr IV.SIG Q24H [facility] Rx#:[id number] Levaquin 500 mg Premix Inj 500 100 / 100 mg In 100 ml @ 100 mls/hr IV. SIG Q24H [facility] Rx#:[id number] Zosyn 3.375 GM Premix 50 ML @ 150 / 150 100 / 100 100 mls/hr IV.SIG Q6H [facility] Rx#: [id number] Oral 1800 / 1800 120 / 120 Output: Urine Amount (Catheter) 1700 / 1700 8150 / 8150 Indwelling Urethral Catheter 1700 / 1700 8150 / 8150 Other: Bladder Irrigation Fluid - Amount Instilled Indwelling Urethral Catheter 12,000 3,000 Bladder Irrigation Fluid - Amount Drained Indwelling Urethral Catheter 13,700 Date of Last Bowel Movement 07/25/18 07/27/18 # Bowel Movements 1 Result Diagrams: 07/27/18 06:26 07/27/18 06:26 Medications and IVs: Active Medications Generic Name Dose Route Start Last Admin Trade Name Freq PRN Reason Stop Dose Admin Acetaminophen 650 mg 07/22/18 13:55 07/27/18 13:09 Tylenol PO 650 mg Q4H PRN Administration fever Bupropion HCl 150 mg 07/22/18 14:00 07/27/18 08:33 Wellbutrin Xl PO 150 mg DAILY [facility] Administration Diazepam 5 mg 07/22/18 13:57 07/27/18 00:56 Valium PO 5 mg DAILY PRN Administration Anxiety Docusate Sodium 100 mg 07/25/18 15:45 07/27/18 17:21 Colace PO 100 mg TID [facility] Administration Folic Acid 1 mg 07/24/18 12:00 07/27/18 08:32 Folic Acid PO 1 mg DAILY [facility] Administration Gabapentin 300 mg 07/23/18 21:00 07/27/18 21:43 Neurontin PO 300 mg BID [facility] Administration Hydromorphone HCl 0.5 mg 07/26/18 19:30 07/27/18 10:37 Dilaudid Pf Inj IV.PUSH 0.5 mg Q4H PRN Administration BREAKTHROUGH PAIN Piperacillin/Tazobactam/Dextrose 50 mls @ 100 mls/hr 07/24/18 17:30 07/28/18 06:04 Zosyn 3.375 Gm Premix IV.SIG Infused Q6H [facility] Infusion Levofloxacin/Dextrose 500 mg in 100 mls @ 100 mls/hr 07/24/18 18:00 07/27/18 18:21 Levaquin 500 Mg Premix Inj IV.SIG Infused Q24H [facility] Infusion Iron Sucrose 200 mg/ Sodium 110 mls @ 110 mls/hr 07/26/18 10:00 07/27/18 13: 25 Chloride IV.SIG 07/28/18 10:59 Infused Q24H [facility] Infusion Latanoprost 1 drop 07/22/18 21:00 07/27/18 21:44 Xalatan 0.005% Opth Drops EACH EYE Not Given HS [facility] Losartan Potassium 100 mg 07/22/18 14:30 07/27/18 08:32 Cozaar PO 100 mg DAILY [facility] Administration Oxycodone HCl 5 mg 07/22/18 14:46 07/28/18 05:21 Roxicodone PO 5 mg Q4H PRN Administration breakthrough pain Oxycodone HCl 10 mg 07/22/18 22:00 07/27/18 21:43 Oxycontin Cr PO 10 mg Q12H [facility] Administration Pom: (Lubiprostone [ 0 each 07/22/18 21:00 Amitiza] 24 Mcg) PO BID [facility] Tenofovir Disoproxil Fumarate 300 mg 07/24/18 09:00 07/26/18 09:08 Viread PO 300 mg EVERY OTHER DAY [facility] Administration Tolterodine Tartrate 4 mg 07/24/18 13:00 07/27/18 08:33 Detrol La PO 4 mg DAILY [facility] Administration Vitamin D 2,000 unit 07/25/18 09:00 07/27/18 08:33 Vitamin D3 PO 2,000 unit DAILY [facility] Administration Objective Remarks: IVONNE RRR Clear lungs Palacios is in place, urine is light pink 07/27 Abd:soft,nt,nd Palacios on CBI; now with pink urine; clots cleared. 07/28 Abd:soft,nt, nd Palacios with clear urine. Assessment and Plan - Plan 73y.o M with other medical issues listed in HPI Urology consulted for hematuria, which is resolving now No additional recommendations, same as below - Continue care as per primary team - No acute intervention needed - Hematuria can be related to self cath and UTI as well as to previous radiation. - Continue current treatment, follow ID recommendations - Manual irrigation of the bladder may help to get rid of bladder clots/debris seen in the bladder on Sono. Do it BID - Pt to see his urologist after d/c for further management, may need cysto as outpt. 07/27/18 73 y.o male with metastatic CaP with gross hematuria 24F 3-way palacios in place; clots irrigated and CBI started Hold SQ Heparin; will order SCD's instead Will need cystoscopy at later date and may need HBO as outpt to help RX Radiation cystitis Will follow. 07/28 73 y.o male with metastatic CaP with gross hematuria 24F 3-way palacios in place; urine now clear Cysto as outpt.
[2018-07-28] MEDS: Calcium Carbonate 500 MG Tablet PO SCH ×2 (08:42→21:01)
[2018-07-28] MEDS: Tenofovir 300 MG Tablet PO SCH (08:42)
[2018-07-28] MEDS: Gabapentin 300 MG Capsule PO SCH ×2 (08:42→21:01)
[2018-07-28] MEDS: buPROPion 150 MG XL 24 HR Tablet PO SCH (08:42)
[2018-07-28] MEDS: Tolterodine Tartrate LA 4 MG Capsule PO SCH (08:42)
[2018-07-28] MEDS: Docusate Sodium 100 MG Capsule PO SCH ×3 (08:43→17:10)
[2018-07-28] MEDS: Folic Acid 1 MG Tablet PO SCH (08:43)
--- NOTE | 2018-07-28 09:06 | P.PN ---
Subjective Interval history: Follow up for persistent hematuria, metastatic prostate cancer. Patient is currently resting in bed. Afebrile. Urine appears normal color. Physical Exam Vital signs: Vital Signs 07/27/18 12:00 07/27/18 13:10 07/27/18 16:00 Temperature 99.7 F H 101.2 F H 99.7 F H Pulse Rate 90 84 Respiratory Rate 20 18 Blood Pressure 115/65 103/66 Pulse Oximetry 99 96 07/27/18 19:16 07/27/18 20:00 07/27/18 22:13 Temperature 100.5 F H Pulse Rate 71 89 Respiratory Rate 18 16 Blood Pressure 93/52 L Pulse Oximetry 96 07/27/18 23:02 07/27/18 23:51 07/28/18 03:50 Temperature 98.5 F Pulse Rate 83 74 Respiratory Rate 16 18 Blood Pressure 105/54 L Pulse Oximetry 94 L 07/28/18 04:00 07/28/18 04:07 07/28/18 05:51 Temperature 98.8 F Pulse Rate 77 71 Respiratory Rate 16 18 Blood Pressure 102/54 L Pulse Oximetry 96 07/28/18 07:27 07/28/18 07:57 Temperature Pulse Rate 73 Respiratory Rate 18 Blood Pressure Pulse Oximetry Intake & Output 07/27/18 07/28/18 07/28/18 18:59 06:59 18:59 Intake Total 2280 / 2280 220 / 220 Output Total 1700 / 1700 8150 / 8150 Balance 580 / 580 -7930 / -7930 Weight 84 kg Intake: IV 480 / 480 100 / 100 Calcium Gluconate Inj 2 GM In 120 / 120 NS Inj 100 ML @ 120 mls/hr IV. SIG ONCE ONE Rx#:[id number] Venofer Inj 200 MG In NS Inj 110 / 110 100 ML @ 110 mls/hr IV.SIG Q24H [facility] Rx#:[id number] Levaquin 500 mg Premix Inj 500 100 / 100 mg In 100 ml @ 100 mls/hr IV. SIG Q24H [facility] Rx#:[id number] Zosyn 3.375 GM Premix 50 ML @ 150 / 150 100 / 100 100 mls/hr IV.SIG Q6H [facility] Rx#: [id number] Oral 1800 / 1800 120 / 120 Output: Urine Amount (Catheter) 1700 / 1700 8150 / 8150 Indwelling Urethral Catheter 1700 / 1700 8150 / 8150 Other: Bladder Irrigation Fluid - Amount Instilled Indwelling Urethral Catheter 12,000 3,000 Bladder Irrigation Fluid - Amount Drained Indwelling Urethral Catheter 13,700 Date of Last Bowel Movement 07/25/18 07/27/18 # Bowel Movements 1 Narrative: GENERAL: Alert, oriented 3, NAD. SKIN: Warm and dry. HEAD: Normocephalic. EYES: No scleral icterus. No injection or drainage. NECK: Supple, trachea midline. No JVD or lymphadenopathy. CARDIOVASCULAR: Regular rate and rhythm without murmurs, gallops, or rubs. RESPIRATORY: Breath sounds equal bilaterally. No accessory muscle use. GASTROINTESTINAL: Abdomen soft, tender to palpation in the lower abdomen, nondistended. MUSCULOSKELETAL: No cyanosis, or edema. Tender to palpation over lower extremities. : Significant hematuria present. BACK: Nontender without obvious deformity. No CVA tenderness. - Urinary Catheter Management Indwelling Urethral Catheter Cath placed during this visit: yes Reason for continuing: Gross Hematuria Insertion date: 07/27/18 Insertion time: 11:00 Results - Labs CBC & Chem 7: 07/27/18 06:26 07/27/18 06:26 Laboratory Results - last 24 hr 07/24/18 09:48 Vit D 1,25-Dihydroxy 70 H Microbiology 07/26/18 19:31 Blood - Peripheral Aerobic Blood Culture - Preliminary No growth in 1 day 07/26/18 19:31 Blood - Peripheral Anaerobic Blood Culture - Final QNS - See aerobic report. 07/26/18 19:25 Blood - Peripheral Aerobic Blood Culture - Preliminary No growth in 1 day 07/26/18 19:25 Blood - Peripheral Anaerobic Blood Culture - Preliminary No growth in 1 day 07/22/18 11:16 Blood - Peripheral Aerobic Blood Culture - Final No growth in 5 days 07/22/18 11:16 Blood - Peripheral Anaerobic Blood Culture - Final No growth in 5 days 07/22/18 11:00 Blood - Peripheral Aerobic Blood Culture - Final No growth in 5 days 07/22/18 11:00 Blood - Peripheral Anaerobic Blood Culture - Final No growth in 5 days Assessment and Plan - Plan Mr. Queen is a pleasant 73-year-old male with a history of metastatic prostate carcinoma who was admitted to the hospital due to fever, hematuria and pelvic pain. Infectious disease as well as oncology and urology have been following patient. Patient is currently on levofloxacin and Zosyn for suspected prostatitis. Acute prostatitis -Continue levofloxacin 500 mg daily, Zosyn 3.375 g every 6 hours. -ID is following. Urine culture showed staph epi which is not a typical organism to cause prostatitis. Persistent hematuria Bilateral hydronephrosis on ultrasound left greater than right -We consulted Dr. Miranda (Urology) yesterday who exchanged the catheter. Urine is not bloody anymore. -We greatly appreciate Dr. Miranda's help. Metastatic prostate carcinoma -Oncology is following. Patient is has had good response to leuprolide and Enzalutamide (Xtandi). -Continue oxycodone for pain control. Hypocalcemia -Mg was 2.1. Calcium went down to 7.2. We gave 2g of Calcium gluconate IV on 07/27/2018. -BMP in the AM. Discharge Plan: Hopefully home with home health per PT recs. Full code. Heparin SQ.
[2018-07-28] MEDS: Iron Sucrose Inj 200 MG in Sodium Chlor 0.9% Inj 100 ML IV.SIG SCH (09:12)
[2018-07-28] MEDS: oxyCODONE 10 MG Controlled Release Tablet PO SCH ×2 (09:12→21:01)
[2018-07-28] MEDS: Piperacil/Tazo 2.25 GM Premix 50 ML IV.SIG SCH ×3 (11:28→23:38)
--- NOTE | 2018-07-28 14:34 | P.DCO ---
- Physical Therapy Order: Evaluate and treat, Improve ambulation, Strength and gait training - Home Health Nursing Order: Medical education, Signs/symptoms of disease process, Medication education-adverse effect, Nursing assessment with vital signs, Engel catheter maintenance - Certification I have seen patient Servando Queen on 07/28/18. My clinical findings support the need for the requested home health care services because: Limited mobility due to disease progression, Deconditioned with increased weakness, Limited ability to care for self, Need for psychosocial assistance, High risk of falls, Infection with risk of complications I certify that my clinical findings support that this patient is homebound because: Unsteady gait/balance, Unsafe to leave home unassisted, Unable to use public transportation
[2018-07-28] MEDS: Levofloxacin 500 mg Premix Inj 500 MG/100 ML PIGGYBACK IV.SIG SCH (17:10)
[2018-07-28] MEDS: Acetaminophen 325 MG Tablet PO PRN (18:37)
[2018-07-28] MEDS: Latanoprost 0.005% Opth Drops 2.5 ML Bottle EACH EYE SCH (21:02)
[2018-07-29] MEDS: Piperacil/Tazo 2.25 GM Premix 50 ML IV.SIG SCH ×4 (05:46→23:18)
[2018-07-29] MEDS: HYDROmorphone PF Inj 2 MG/ML Vial IV.PUSH PRN (06:10)
[2018-07-29 06:22] LABS: Carbon Dioxide 25.4 meq/L (21.0-32.0); Potassium 3.5 meq/L (3.5-5.1)
[2018-07-29 07:03] LABS: Total Protein 5.6 g/dL (6.4-8.2)
[2018-07-29] MEDS: diazePAM 5 MG Tablet PO PRN (07:27)
[2018-07-29] MEDS ORDERED: Belladonna Alkaloid/Opium 60 MG Supp RECTAL ONE (07:30)
[2018-07-29 07:43] LABS: Hematocrit 21.8 % (39.0-51.0); Hemoglobin 7.1 gm/dL (13.0-17.0); Mean Corpuscular HGB Conc 32.4 % (32.0-36.0); Mean Corpuscular Volume 92.5 fL (80.0-100.0); Mean Platelet Volume 6.5 fL (7.0-11.0); Platelet Count 354 th/mm3 (150-450); Red Blood Count 2.36 mil/mm3 (4.50-5.90); Red Cell Distribution Width 15.7 % (11.6-17.2); White Blood Count 8.3 th/mm3 (4.0-11.0)
--- NOTE | 2018-07-29 08:26 | P.PNONC ---
Subjective Interval history: T-max 101.6. RN at the bedside attempting to irrigate three-way Engel catheter. She states she is changed out the bag and tubing multiple times this a.m. She has spoken with urologist several times as well. She has attempted manual irrigation. Bladder scanner showing minimal residual in bladder. Minimal red urine noted in tubing and drainage back. I have encouraged the patient to ambulate to see if this position change helps urine output drainage. Patient denies any pain or discomfort at this time. Objective Vital Signs/Intake & Output: Vital Signs 07/28/18 12:00 07/28/18 16:00 07/28/18 19:14 Temperature 99.9 F H 98.3 F Pulse Rate 79 79 94 H Respiratory Rate 18 18 Blood Pressure 111/60 117/64 Pulse Oximetry 98 98 07/28/18 19:50 07/28/18 19:55 07/28/18 20:12 Temperature 101.6 F H Pulse Rate 93 H Respiratory Rate 20 16 Blood Pressure 116/59 L Pulse Oximetry 95 07/28/18 21:30 07/28/18 23:47 07/29/18 00:15 Temperature 98.2 F Pulse Rate 68 Respiratory Rate 16 18 18 Blood Pressure 103/56 L Pulse Oximetry 07/29/18 04:11 07/29/18 05:50 07/29/18 06:40 Temperature 98.9 F Pulse Rate 69 Respiratory Rate 16 18 18 Blood Pressure 108/49 L Pulse Oximetry 96 07/29/18 07:27 Temperature Pulse Rate 85 Respiratory Rate Blood Pressure Pulse Oximetry Intake & Output 07/28/18 07/29/18 07/29/18 18:59 06:59 18:59 Intake Total 910 / 910 100 / 100 Output Total 4500 / 4500 8800 / 8800 Balance -3590 / -3590 -8700 / -8700 Weight 83.8 kg Intake: IV 310 / 310 100 / 100 Venofer Inj 200 MG In NS Inj 110 / 110 100 ML @ 110 mls/hr IV.SIG Q24H [facility] Rx#:[id number] Levaquin 500 mg Premix Inj 500 100 / 100 mg In 100 ml @ 100 mls/hr IV. SIG Q24H [facility] Rx#:[id number] Zosyn 2.25 GM Premix 50 ML @ 100 / 100 100 / 100 100 mls/hr IV.SIG Q6H [facility] Rx#: [id number] Oral 600 / 600 Output: Urine Amount (Catheter) 4500 / 4500 8800 / 8800 Indwelling Urethral Catheter 4500 / 4500 8800 / 8800 Other: Bladder Irrigation Fluid - 3,000 Amount Instilled Indwelling Urethral Catheter 700 2,300 Bladder Irrigation Fluid - Amount Drained Indwelling Urethral Catheter 4,500 Date of Last Bowel Movement 07/28/18 07/28/18 # Bowel Movements 1 Result Diagrams: 07/29/18 07:35 07/29/18 05:19 Laboratory Results: Laboratory Results - last 24 hr 07/26/18 07/29/18 07/29/18 10:22 05:19 07:35 WBC 8.3 RBC 2.36 L Hgb 7.1 L Hct 21.8 L MCV 92.5 MCH 30.0 MCHC 32.4 RDW 15.7 Plt Count 354 MPV 6.5 L Sodium 143 Potassium 3.5 Chloride 109 H Carbon Dioxide 25.4 Anion Gap 9 BUN 24 H Creatinine 2.32 H Estimated GFR 28 L Random Glucose 100 Calcium 7.0 L* Prot Corrected Calcium 7.8 L Total Protein 5.6 L D Total Testosterone 9.9 L Free Testosterone 0.20 L Culture Results: Microbiology 07/26/18 19:31 Aerobic Blood Culture - Preliminary Blood - Peripheral No growth in 2 days Anaerobic Blood Culture - Final QNS - See aerobic report. 07/26/18 19:25 Aerobic Blood Culture - Preliminary Blood - Peripheral No growth in 2 days Anaerobic Blood Culture - Preliminary No growth in 2 days 07/22/18 11:16 Aerobic Blood Culture - Final Blood - Peripheral No growth in 5 days Anaerobic Blood Culture - Final No growth in 5 days 07/22/18 11:00 Aerobic Blood Culture - Final Blood - Peripheral No growth in 5 days Anaerobic Blood Culture - Final No growth in 5 days Medications: Active Medications Generic Name Dose Route Start Last Admin Trade Name Freq PRN Reason Stop Dose Admin Acetaminophen 650 mg 07/22/18 13:55 07/28/18 18:37 Tylenol PO 650 mg Q4H PRN Administration fever Bupropion HCl 150 mg 07/22/18 14:00 07/28/18 08:42 Wellbutrin Xl PO 150 mg DAILY [facility] Administration Diazepam 5 mg 07/22/18 13:57 07/29/18 07:27 Valium PO 5 mg DAILY PRN Administration Anxiety Docusate Sodium 100 mg 07/25/18 15:45 07/28/18 17:10 Colace PO 100 mg TID [facility] Administration Folic Acid 1 mg 07/24/18 12:00 07/28/18 08:43 Folic Acid PO 1 mg DAILY [facility] Administration Gabapentin 300 mg 07/23/18 21:00 07/28/18 21:01 Neurontin PO 300 mg BID [facility] Administration Hydromorphone HCl 0.5 mg 07/26/18 19:30 07/29/18 06:10 Dilaudid Pf Inj IV.PUSH 0.5 mg Q4H PRN Administration BREAKTHROUGH PAIN Levofloxacin/Dextrose 500 mg in 100 mls @ 100 mls/hr 07/24/18 18:00 07/28/18 17:52 Levaquin 500 Mg Premix Inj IV.SIG Infused Q24H [facility] Infusion Piperacillin/Tazobactam/Dextrose 50 mls @ 100 mls/hr 07/28/18 11:00 07/29/18 06:10 Zosyn 2.25 Gm Premix IV.SIG Infused Q6H [facility] Infusion Latanoprost 1 drop 07/22/18 21:00 07/28/18 21:02 Xalatan 0.005% Opth Drops EACH EYE Not Given HS [facility] Losartan Potassium 100 mg 07/22/18 14:30 07/28/18 08:42 Cozaar PO 100 mg DAILY [facility] Administration Oxycodone HCl 5 mg 07/22/18 14:46 07/29/18 03:41 Roxicodone PO 5 mg Q4H PRN Administration breakthrough pain Oxycodone HCl 10 mg 07/22/18 22:00 07/28/18 21:01 Oxycontin Cr PO 10 mg Q12H [facility] Administration Tenofovir Disoproxil Fumarate 300 mg 07/24/18 09:00 07/28/18 08:42 Viread PO 300 mg EVERY OTHER DAY [facility] Administration Tolterodine Tartrate 4 mg 07/24/18 13:00 07/28/18 08:42 Detrol La PO 4 mg DAILY [facility] Administration Vitamin D 2,000 unit 07/25/18 09:00 07/28/18 08:42 Vitamin D3 PO 2,000 unit DAILY [facility] Administration Objective Remarks: GENERAL: Well-nourished, well-developed male patient, lying in bed in no acute distress. SKIN: Warm and dry. HEAD: Normocephalic. EYES: No scleral icterus. No injection or drainage. NECK: Supple, trachea midline. CARDIOVASCULAR: Regular rate and rhythm without murmurs. RESPIRATORY: Breath sounds equal bilaterally. No accessory muscle use. GASTROINTESTINAL: Abdomen soft, non-tender, nondistended. EXTREMITIES: No cyanosis, or edema. MUSCULOSKELETAL: Adequate muscle tone. NEUROLOGICAL: No obvious focal deficit. Awake, alert, and oriented x3. PSYCHIATRIC: Appropriate mood and affect; insight and judgment normal. Assessment/Plan - Plan Mr. Queen Is a 73-year-old man with a diagnosis of metastatic prostate carcinoma , he has had an excellent response to combination therapy consisting of leuprolide and Xtandi. His PSA levels have been less than 0.1 ng/dL over the past several months. He has extensive metastatic disease burden involving his axial skeleton especially his pelvis. Most recent PET CT scan revealed most of his previously active metastatic disease to be dormant, he however had intense hypermetabolic activity localized to the prostate and to the bladder. In late June he underwent cystoscopy for workup of hematuria with his former urologist Dr. Parmar, no obvious cause for hematuria was identified. He is now in the hospital with fevers, hematuria and pelvic pain. Clinically he has suspected prostatitis and is on broad-spectrum antibiotics with Zosyn and levofloxacin. Urine cultures and blood cultures are negative thus far other than forced staph epidermidis. CT scan of the abdomen/pelvis revealed no obvious cause for the hematuria. Urology has been following and I recommended bladder irrigation. Recommendations: 1. Febrile, T-max 101.6F. Suspected prostatitis, patient continues on antibiotics. 2. Hematuria, now with CBI. On hold for no output at this time. RN has spoke to urologist who ordered manual irrigation. Minimal red urine output now in collection bag and tubing. Patient encouraged to ambulate and RN to monitor closely. Management per urology. 3. Pain control, continue to monitor and administer pain medications as warranted. 4. Metastatic prostate carcinoma, PSA less than 0.1, total testosterone 9.9, free testosterone 0.2. 5. Anemia, normocytic-secondary to hematuria. Patient continues to bleed. We will transfuse 1 unit of PRBCs.
--- NOTE | 2018-07-29 08:30 | P.PN ---
Subjective Interval history: Follow up for persistent hematuria, metastatic prostate cancer. Patient is currently doing well. No acute concerns. However, overnight he had significant hematuria again and blood clots in the palacios catheter. No fever today. However, yesterday evening he had a temp of 101F. Physical Exam Vital signs: Vital Signs 07/28/18 12:00 07/28/18 16:00 07/28/18 19:14 Temperature 99.9 F H 98.3 F Pulse Rate 79 79 94 H Respiratory Rate 18 18 Blood Pressure 111/60 117/64 Pulse Oximetry 98 98 07/28/18 19:50 07/28/18 19:55 07/28/18 20:12 Temperature 101.6 F H Pulse Rate 93 H Respiratory Rate 20 16 Blood Pressure 116/59 L Pulse Oximetry 95 07/28/18 21:30 07/28/18 23:47 07/29/18 00:15 Temperature 98.2 F Pulse Rate 68 Respiratory Rate 16 18 18 Blood Pressure 103/56 L Pulse Oximetry 07/29/18 04:11 07/29/18 05:50 07/29/18 06:40 Temperature 98.9 F Pulse Rate 69 Respiratory Rate 16 18 18 Blood Pressure 108/49 L Pulse Oximetry 96 07/29/18 07:27 Temperature Pulse Rate 85 Respiratory Rate Blood Pressure Pulse Oximetry Intake & Output 07/28/18 07/29/18 07/29/18 18:59 06:59 18:59 Intake Total 910 / 910 100 / 100 Output Total 4500 / 4500 8800 / 8800 Balance -3590 / -3590 -8700 / -8700 Weight 83.8 kg Intake: IV 310 / 310 100 / 100 Venofer Inj 200 MG In NS Inj 110 / 110 100 ML @ 110 mls/hr IV.SIG Q24H [facility] Rx#:[id number] Levaquin 500 mg Premix Inj 500 100 / 100 mg In 100 ml @ 100 mls/hr IV. SIG Q24H [facility] Rx#:[id number] Zosyn 2.25 GM Premix 50 ML @ 100 / 100 100 / 100 100 mls/hr IV.SIG Q6H [facility] Rx#: [id number] Oral 600 / 600 Output: Urine Amount (Catheter) 4500 / 4500 8800 / 8800 Indwelling Urethral Catheter 4500 / 4500 8800 / 8800 Other: Bladder Irrigation Fluid - 3,000 Amount Instilled Indwelling Urethral Catheter 700 2,300 Bladder Irrigation Fluid - Amount Drained Indwelling Urethral Catheter 4,500 Date of Last Bowel Movement 07/28/18 07/28/18 # Bowel Movements 1 Narrative: GENERAL: Alert, oriented 3, NAD. SKIN: Warm and dry. HEAD: Normocephalic. EYES: No scleral icterus. No injection or drainage. NECK: Supple, trachea midline. No JVD or lymphadenopathy. CARDIOVASCULAR: Regular rate and rhythm without murmurs, gallops, or rubs. RESPIRATORY: Breath sounds equal bilaterally. No accessory muscle use. GASTROINTESTINAL: Abdomen soft, tender to palpation in the lower abdomen, nondistended. MUSCULOSKELETAL: No cyanosis, or edema. Tender to palpation over lower extremities. : Significant hematuria present. BACK: Nontender without obvious deformity. No CVA tenderness. - Urinary Catheter Management Indwelling Urethral Catheter Cath placed during this visit: yes Reason for continuing: Gross Hematuria Insertion date: 07/27/18 Insertion time: 11:00 Results - Labs CBC & Chem 7: 07/29/18 14:33 07/29/18 05:19 Laboratory Results - last 24 hr 07/26/18 07/29/18 07/29/18 10:22 05:19 07:35 WBC 8.3 RBC 2.36 L Hgb 7.1 L Hct 21.8 L MCV 92.5 MCH 30.0 MCHC 32.4 RDW 15.7 Plt Count 354 MPV 6.5 L Sodium 143 Potassium 3.5 Chloride 109 H Carbon Dioxide 25.4 Anion Gap 9 BUN 24 H Creatinine 2.32 H Estimated GFR 28 L Random Glucose 100 Calcium 7.0 L* Prot Corrected Calcium 7.8 L Total Protein 5.6 L D Total Testosterone 9.9 L Free Testosterone 0.20 L Microbiology 07/26/18 19:31 Blood - Peripheral Aerobic Blood Culture - Preliminary No growth in 2 days 07/26/18 19:31 Blood - Peripheral Anaerobic Blood Culture - Final QNS - See aerobic report. 07/26/18 19:25 Blood - Peripheral Aerobic Blood Culture - Preliminary No growth in 2 days 07/26/18 19:25 Blood - Peripheral Anaerobic Blood Culture - Preliminary No growth in 2 days Assessment and Plan - Assessment (1) Acute UTI Code(s): N39.0 - Urinary tract infection, site not specified Status: Acute (2) Prostate cancer metastatic to bone Code(s): C61 - Malignant neoplasm of prostate; C79.51 - Secondary malignant neoplasm of bone Status: Acute - Plan Mr. Queen is a pleasant 73-year-old male with a history of metastatic prostate carcinoma who was admitted to the hospital due to fever, hematuria and pelvic pain. Infectious disease as well as oncology and urology have been following patient. Patient is currently on levofloxacin and Zosyn for suspected prostatitis. Acute prostatitis -Continue levofloxacin 500 mg daily, Zosyn 3.375 g every 6 hours. -ID is following. Urine culture showed staph epi which is not a typical organism to cause prostatitis. Persistent hematuria Bilateral hydronephrosis on ultrasound left greater than right -We consulted Dr. Miranda (Urology) yesterday who exchanged the catheter. Urine is not bloody anymore. -We greatly appreciate Dr. Miranda's help. -Patient started having significant hematuria again on 07/28/2018. -Developed anemia with Hgb 7.1. -Discussed with Urologist who will take patient to OR today. Acute Urinary tract blood loss -Hgb 7.1, repeat Hgb consistent with blood loss. -Hematology service will transfuse total of 2 units of PRBCs. Metastatic prostate carcinoma -Oncology is following. Patient is has had good response to leuprolide and Enzalutamide (Xtandi). -Continue oxycodone for pain control. Hypocalcemia -Mg was 2.1. Calcium went down to 7.2. We gave 2g of Calcium gluconate IV on 07/27/2018. Discharge Plan: Hopefully home with home health per PT recs. Full code. Ambulation.
[2018-07-29] MEDS ORDERED: Sodium Chlor 0.9% Inj 250 ML IV.SIG SCH (09:00)
[2018-07-29] MEDS: Folic Acid 1 MG Tablet PO SCH (09:15)
[2018-07-29] MEDS: Calcium Carbonate 500 MG Tablet PO SCH ×2 (09:16→20:16)
[2018-07-29] MEDS: Tolterodine Tartrate LA 4 MG Capsule PO SCH (09:17)
[2018-07-29] MEDS: buPROPion 150 MG XL 24 HR Tablet PO SCH (09:17)
[2018-07-29] MEDS: Gabapentin 300 MG Capsule PO SCH ×2 (09:17→20:16)
[2018-07-29] MEDS: oxyCODONE 10 MG Controlled Release Tablet PO SCH ×2 (09:19→22:08)
[2018-07-29] MEDS: Docusate Sodium 100 MG Capsule PO SCH ×3 (09:20→17:05)
[2018-07-29] MEDS: Acetaminophen 325 MG Tablet PO PRN (10:21)
--- NOTE | 2018-07-29 10:23 | P.PNURO ---
Subjective Patient symptoms today: Pt with recurrent gross hematuria with clots. Irrigated at bedside but actively bleeding. Objective Vital Signs: Vital Signs 07/28/18 12:00 07/28/18 16:00 07/28/18 19:14 Temperature 99.9 F H 98.3 F Pulse Rate 79 79 94 H Respiratory Rate 18 18 Blood Pressure 111/60 117/64 Pulse Oximetry 98 98 07/28/18 19:50 07/28/18 19:55 07/28/18 20:12 Temperature 101.6 F H Pulse Rate 93 H Respiratory Rate 20 16 Blood Pressure 116/59 L Pulse Oximetry 95 07/28/18 21:30 07/28/18 23:47 07/29/18 00:15 Temperature 98.2 F Pulse Rate 68 Respiratory Rate 16 18 18 Blood Pressure 103/56 L Pulse Oximetry 07/29/18 04:11 07/29/18 05:50 07/29/18 06:40 Temperature 98.9 F Pulse Rate 69 Respiratory Rate 16 18 18 Blood Pressure 108/49 L Pulse Oximetry 96 07/29/18 07:27 07/29/18 08:00 Temperature 98 F Pulse Rate 85 83 Respiratory Rate 19 Blood Pressure 122/63 Pulse Oximetry 94 L Intake & Output 07/28/18 07/29/18 07/29/18 18:59 06:59 18:59 Intake Total 910 / 910 100 / 100 Output Total 4500 / 4500 8800 / 8800 Balance -3590 / -3590 -8700 / -8700 Weight 83.8 kg Intake: IV 310 / 310 100 / 100 Venofer Inj 200 MG In NS Inj 110 / 110 100 ML @ 110 mls/hr IV.SIG Q24H [facility] Rx#:[id number] Levaquin 500 mg Premix Inj 500 100 / 100 mg In 100 ml @ 100 mls/hr IV. SIG Q24H [facility] Rx#:[id number] Zosyn 2.25 GM Premix 50 ML @ 100 / 100 100 / 100 100 mls/hr IV.SIG Q6H [facility] Rx#: [id number] Oral 600 / 600 Output: Urine Amount (Catheter) 4500 / 4500 8800 / 8800 Indwelling Urethral Catheter 4500 / 4500 8800 / 8800 Other: Bladder Irrigation Fluid - 3,000 Amount Instilled Indwelling Urethral Catheter 700 2,300 Bladder Irrigation Fluid - Amount Drained Indwelling Urethral Catheter 4,500 Date of Last Bowel Movement 07/28/18 07/28/18 # Bowel Movements 1 Result Diagrams: 07/29/18 07:35 07/29/18 05:19 Medications and IVs: Active Medications Generic Name Dose Route Start Last Admin Trade Name Freq PRN Reason Stop Dose Admin Acetaminophen 650 mg 07/22/18 13:55 07/28/18 18:37 Tylenol PO 650 mg Q4H PRN Administration fever Acetaminophen 650 mg 07/29/18 08:29 Tylenol PO Q4H PRN SEE LABEL COMMENTS Bupropion HCl 150 mg 07/22/18 14:00 07/29/18 09:17 Wellbutrin Xl PO 150 mg DAILY [facility] Administration Diazepam 5 mg 07/22/18 13:57 07/29/18 07:27 Valium PO 5 mg DAILY PRN Administration Anxiety Diphenhydramine HCl 25 mg 07/29/18 08:29 Benadryl PO Q4H PRN SEE LABEL COMMENTS Docusate Sodium 100 mg 07/25/18 15:45 07/29/18 09:20 Colace PO 100 mg TID [facility] Administration Folic Acid 1 mg 07/24/18 12:00 07/29/18 09:15 Folic Acid PO 1 mg DAILY [facility] Administration Gabapentin 300 mg 07/23/18 21:00 07/29/18 09:17 Neurontin PO 300 mg BID [facility] Administration Hydromorphone HCl 0.5 mg 07/26/18 19:30 07/29/18 06:10 Dilaudid Pf Inj IV.PUSH 0.5 mg Q4H PRN Administration BREAKTHROUGH PAIN Levofloxacin/Dextrose 500 mg in 100 mls @ 100 mls/hr 07/24/18 18:00 07/28/18 17:52 Levaquin 500 Mg Premix Inj IV.SIG Infused Q24H [facility] Infusion Piperacillin/Tazobactam/Dextrose 50 mls @ 100 mls/hr 07/28/18 11:00 07/29/18 06:10 Zosyn 2.25 Gm Premix IV.SIG Infused Q6H [facility] Infusion Sodium Chloride 250 mls @ 15 mls/hr 07/29/18 09:00 Ns Inj IV.SIG 07/30/18 01:39 ONCE [facility] Latanoprost 1 drop 07/22/18 21:00 07/28/18 21:02 Xalatan 0.005% Opth Drops EACH EYE Not Given HS [facility] Losartan Potassium 100 mg 07/22/18 14:30 07/29/18 09:16 Cozaar PO 100 mg DAILY [facility] Administration Oxycodone HCl 5 mg 07/22/18 14:46 07/29/18 03:41 Roxicodone PO 5 mg Q4H PRN Administration breakthrough pain Oxycodone HCl 10 mg 07/22/18 22:00 07/29/18 09:19 Oxycontin Cr PO 10 mg Q12H [facility] Administration Pom: (Lubiprostone [ 0 each 07/22/18 21:00 Amitiza] 24 Mcg) PO BID [facility] Tenofovir Disoproxil Fumarate 300 mg 07/24/18 09:00 07/28/18 08:42 Viread PO 300 mg EVERY OTHER DAY [facility] Administration Tolterodine Tartrate 4 mg 07/24/18 13:00 07/29/18 09:17 Detrol La PO 4 mg DAILY [facility] Administration Vitamin D 2,000 unit 07/25/18 09:00 07/29/18 09:17 Vitamin D3 PO 2,000 unit DAILY [facility] Administration Objective Remarks: IVONNE RRR Clear lungs Palacios is in place, urine is light pink 07/27 Abd:soft,nt,nd Palacios on CBI; now with pink urine; clots cleared. 07/28 Abd:soft,nt, nd Palacios with clear urine. 07/29 Abd:soft,nt,nd Palacios with gross hematuria with clots. Assessment and Plan - Plan 73y.o M with other medical issues listed in HPI Urology consulted for hematuria, which is resolving now No additional recommendations, same as below - Continue care as per primary team - No acute intervention needed - Hematuria can be related to self cath and UTI as well as to previous radiation. - Continue current treatment, follow ID recommendations - Manual irrigation of the bladder may help to get rid of bladder clots/debris seen in the bladder on Sono. Do it BID - Pt to see his urologist after d/c for further management, may need cysto as outpt. 07/27/18 73 y.o male with metastatic CaP with gross hematuria 24F 3-way palacios in place; clots irrigated and CBI started Hold SQ Heparin; will order SCD's instead Will need cystoscopy at later date and may need HBO as outpt to help RX Radiation cystitis Will follow. 07/28 73 y.o male with metastatic CaP with gross hematuria 24F 3-way palacios in place; urine now clear Cysto as outpt. 07/29 73 y.o male with metastatic CaP with gross hematuria Will need cysto with fulguration of bleeding in OR today Continue NPO.
[2018-07-29 10:28] LABS: Hematocrit 20.4 % (39.0-51.0)
[2018-07-29] MEDS ORDERED: Lidocaine PF 1% Inj 5 ML Syringe OTHER ONE (11:00)
[2018-07-29] MEDS ORDERED: Phenylephrine/NS 1000 MCG/10ML Syringe IV.PUSH ONE (11:00)
[2018-07-29] MEDS ORDERED: Sugammadex Inj 200 MG/2 ML Vial IV.PUSH ONE (11:27)
[2018-07-29] MEDS ORDERED: Sodium Chloride 0.9% Irr Bag 3,000 ML, Aminocaproic Acid Inj 3,000 MG IRRIGATION SCH ×2 (12:00)
--- NOTE | 2018-07-29 12:09 | P.OP ---
- Preoperative Diagnosis (1) Gross hematuria - Postoperative Diagnosis (1) Gross hematuria Date of procedure: 07/29/18 Procedure: Cystoscopy with fulguration of prostate bleeding Anesthesia: GETA Surgeon: Aakash Miranda DO Estimated blood loss (mL): 25 Operation and Findings: 73-year-old male with history of metastatic prostate cancer who has had intermittent gross hematuria. The patient developed clot's with clot retention yesterday and decision made to bring the patient to the operating room to undergo cystoscopy with fulguration of bleeding and possible clot evacuation. Patient was brought to the operating room and identified by myself as Servando Queen. He is placed in the dorsal lithotomy position, prepped draped in sterile fashion, received preprocedure antibiotics and general endotracheal tube anesthesia was administered. 22 [place] cystoscope was inserted in the prosthetic urethra and there was some bleeding coming from the prosthetic lobes. Once in the bladder there was a small clot which was evacuated. No evidence of bleeding was identified within the bladder. Using the 24 [place]er Jasso resectoscope, the rollerball was used to fulgurate the areas of bleeding or along the prostatic urethra. Once that was done, hemostasis was obtained. 24 [place] three-way Engel catheter was inserted without difficulty. The patient was started on CBI. He was awoken and extubated and transferred recovery in stable condition. He tolerated the procedure well.
[2018-07-29] MEDS ORDERED: fentaNYL Citrate Inj 100 MCG/2 ML Ampul ONE (12:36)
[2018-07-29 15:26] LABS: Baso % (Auto) 0.4 % (0.0-2.0); Eos # (Auto) 0.2 th/mm3 (0.0-0.4); Eos % (Auto) 2.4 % (0.0-4.0); Hematocrit 23.6 % (39.0-51.0); Hemoglobin 7.8 gm/dL (13.0-17.0); Lymph # (Auto) 0.9 th/mm3 (1.0-4.8); Lymph % (Auto) 10.7 % (9.0-44.0); Mean Corpuscular HGB Conc 33.1 % (32.0-36.0); Mean Corpuscular Hemoglobin 30.9 pg (27.0-34.0); Mean Corpuscular Volume 93.5 fL (80.0-100.0); Mean Platelet Volume 6.7 fL (7.0-11.0); Mono % (Auto) 12.2 % (0.0-8.0); Neut # (Auto) 6.1 th/mm3 (1.8-7.7); Neut % (Auto) 74.3 % (16.0-70.0); Platelet Count 333 th/mm3 (150-450); Red Blood Count 2.52 mil/mm3 (4.50-5.90); Red Cell Distribution Width 15.3 % (11.6-17.2); White Blood Count 8.2 th/mm3 (4.0-11.0)
[2018-07-29] MEDS ORDERED: Acetaminophen 325 MG Tablet PO ONE (16:08)
[2018-07-29 16:30] LABS: Eosinophils 4 % (0-4); Lymphocytes 5 % (9-44); Monocytes 9 % (0-8)
[2018-07-29 16:31] LABS: Myelocytes 1 % (0-0)
[2018-07-29 16:32] LABS: Platelet Estimate Normal (Normal); Platelet Morphology Normal (Normal); Tallied Nucleated RBC 1 (0-0)
--- NOTE | 2018-07-29 16:42 | P.PNONC ---
Subjective Interval history: Patient seen and examined, vital signs, labs, medications and operative notes reviewed. Religious Activities Director notes reviewed. Subjectively; patient reports his pelvic pain, bladder pain is much improved, he no longer has hematuria. Overnight he reports having had severe pelvic pain, bladder pain and his Engel catheter became clogged. Dr. Miranda of urology came in to see him early this morning, the bladder was manually irrigated, a large volume of blood was immediately evacuated. There was significant bleeding. The patient was taken to the operating room, he was evaluated cystoscopy, there was significant bleeding from the prostatic urethra which was fulgurated. Bleeding was controlled and at three-way Engel catheter was placed for CBI. Earlier this morning he was given 1 unit packed red blood cells for hemoglobin of 8 g/dL, following the packed red blood cell transfusion his hemoglobin dropped down from 8 g/dL down to 7.8 g/dL. Objective Vital Signs/Intake & Output: Vital Signs 07/28/18 19:14 07/28/18 19:50 07/28/18 19:55 Temperature 101.6 F H Pulse Rate 94 H 93 H Respiratory Rate 20 Blood Pressure 116/59 L Pulse Oximetry 95 07/28/18 20:12 07/28/18 21:30 07/28/18 23:47 Temperature 98.2 F Pulse Rate 68 Respiratory Rate 16 16 18 Blood Pressure 103/56 L Pulse Oximetry 07/29/18 00:15 07/29/18 04:11 07/29/18 05:50 Temperature 98.9 F Pulse Rate 69 Respiratory Rate 18 16 18 Blood Pressure 108/49 L Pulse Oximetry 96 07/29/18 06:40 07/29/18 07:27 07/29/18 08:00 Temperature 98 F Pulse Rate 85 83 Respiratory Rate 18 19 Blood Pressure 122/63 Pulse Oximetry 94 L 07/29/18 10:38 07/29/18 12:22 07/29/18 12:30 Temperature 98.8 F 98.2 F Pulse Rate 84 80 74 Respiratory Rate 18 14 14 Blood Pressure 111/64 100/52 L 100/52 L Pulse Oximetry 97 98 98 07/29/18 12:45 07/29/18 13:00 07/29/18 13:18 Temperature 98.4 F 97.7 F Pulse Rate 74 70 72 Respiratory Rate 14 14 16 Blood Pressure 98/55 L 93/51 L 100/53 L Pulse Oximetry 98 98 97 07/29/18 13:20 07/29/18 16:17 Temperature 98.9 F Pulse Rate 72 79 Respiratory Rate 17 Blood Pressure 100/53 L Pulse Oximetry 94 L Intake & Output 07/28/18 07/29/18 07/29/18 18:59 06:59 18:59 Intake Total 910 / 910 100 / 100 1050 / 1050 Output Total 4500 / 4500 8800 / 8800 455 / 455 Balance -3590 / -3590 -8700 / -8700 595 / 595 Weight 83.8 kg Intake: IV 310 / 310 100 / 100 50 / 50 Venofer Inj 200 MG In NS Inj 110 / 110 100 ML @ 110 mls/hr IV.SIG Q24H [facility] Rx#:[id number] Levaquin 500 mg Premix Inj 500 100 / 100 mg In 100 ml @ 100 mls/hr IV. SIG Q24H [facility] Rx#:[id number] Zosyn 2.25 GM Premix 50 ML @ 100 / 100 100 / 100 50 / 50 100 mls/hr IV.SIG Q6H [facility] Rx#: [id number] Oral 600 / 600 Anesthesia Amount 1000 / 1000 Intake (Blood Product) Amt 0 / 0 Rbc As-3 Leukoreduced Unit 0 / 0 [id number] Output: Estimated Blood Loss 5 / 5 Urine Amount (Catheter) 4500 / 4500 8800 / 8800 450 / 450 Indwelling Urethral Catheter 4500 / 4500 8800 / 8800 450 / 450 Other: Bladder Irrigation Fluid - 3,000 100 Amount Instilled Indwelling Urethral Catheter 700 2,300 100 Bladder Irrigation Fluid - Amount Drained Indwelling Urethral Catheter 4,500 650 Date of Last Bowel Movement 07/28/18 07/28/18 07/28/18 # Bowel Movements 1 Result Diagrams: 07/29/18 14:33 07/29/18 05:19 Laboratory Results: Laboratory Results - last 24 hr 07/29/18 07/29/18 07/29/18 05:19 07:35 09:29 WBC 8.3 RBC 2.36 L Hgb 7.1 L 7.0 L Hct 21.8 L 20.4 L* MCV 92.5 MCH 30.0 MCHC 32.4 RDW 15.7 Plt Count 354 MPV 6.5 L Prelim Diff (Auto) Neut % (Auto) Lymph % (Auto) [place] % (Auto) Eos % (Auto) Baso % (Auto) Neut # (Auto) Lymph # (Auto) [place] # (Auto) Eos # (Auto) Baso # (Auto) WBC Differential Seg Neuts % (Manual) Band Neuts % (Manual) Lymphocytes % (Manual) Monocytes % (Manual) Eosinophils % (Manual) Myelocytes % (Man) Abs Neuts (Manual) Nucleated RBCs/100 WBC Differential Comment Platelet Estimate Platelet Morphology Sodium 143 Potassium 3.5 Chloride 109 H Carbon Dioxide 25.4 Anion Gap 9 BUN 24 H Creatinine 2.32 H Estimated GFR 28 L Random Glucose 100 Calcium 7.0 L* Prot Corrected Calcium 7.8 L Total Protein 5.6 L D Blood Type Antibody Screen MTS Gel Crossmatch 07/29/18 07/29/18 07/29/18 09:29 14:33 16:06 WBC 8.2 RBC 2.52 L Hgb 7.8 L Hct 23.6 L MCV 93.5 MCH 30.9 MCHC 33.1 RDW 15.3 Plt Count 333 MPV 6.7 L Prelim Diff (Auto) Slide review pending Neut % (Auto) 74.3 H Lymph % (Auto) 10.7 [place] % (Auto) 12.2 H Eos % (Auto) 2.4 Baso % (Auto) 0.4 Neut # (Auto) 6.1 Lymph # (Auto) 0.9 L [place] # (Auto) 1.0 H Eos # (Auto) 0.2 Baso # (Auto) 0.0 WBC Differential Manual diff final Seg Neuts % (Manual) 79 H Band Neuts % (Manual) 2 Lymphocytes % (Manual) 5 L Monocytes % (Manual) 9 H Eosinophils % (Manual) 4 Myelocytes % (Man) 1 H Abs Neuts (Manual) 6.7 Nucleated RBCs/100 WBC 1 H Differential Comment . Platelet Estimate Normal Platelet Morphology Normal Sodium Potassium Chloride Carbon Dioxide Anion Gap BUN Creatinine Estimated GFR Random Glucose Calcium Prot Corrected Calcium Total Protein Blood Type A Positive Antibody Screen Negative MTS Gel Crossmatch See Detail See Detail Culture Results: Microbiology 07/26/18 19:31 Aerobic Blood Culture - Preliminary Blood - Peripheral No growth in 3 days Anaerobic Blood Culture - Final QNS - See aerobic report. 07/26/18 19:25 Aerobic Blood Culture - Preliminary Blood - Peripheral No growth in 3 days Anaerobic Blood Culture - Preliminary No growth in 3 days 07/22/18 11:16 Aerobic Blood Culture - Final Blood - Peripheral No growth in 5 days Anaerobic Blood Culture - Final No growth in 5 days 07/22/18 11:00 Aerobic Blood Culture - Final Blood - Peripheral No growth in 5 days Anaerobic Blood Culture - Final No growth in 5 days Medications: Active Medications Generic Name Dose Route Start Last Admin Trade Name Freq PRN Reason Stop Dose Admin Acetaminophen 650 mg 07/22/18 13:55 07/29/18 10:21 Tylenol PO 650 mg Q4H PRN Administration fever Bupropion HCl 150 mg 07/22/18 14:00 07/29/18 09:17 Wellbutrin Xl PO 150 mg DAILY [facility] Administration Sodium Chloride 3,000 ml/ 0 ml 07/29/18 12:00 07/29/18 12:34 Aminocaproic Acid 3,000 mg IRRIGATION 10 irrig.soln Q24H [facility] Administration Diazepam 5 mg 07/22/18 13:57 07/29/18 07:27 Valium PO 5 mg DAILY PRN Administration Anxiety Diphenhydramine HCl 25 mg 07/29/18 08:29 07/29/18 10:21 Benadryl PO 25 mg Q4H PRN Administration SEE LABEL COMMENTS Docusate Sodium 100 mg 07/25/18 15:45 07/29/18 14:10 Colace PO 100 mg TID [facility] Administration Folic Acid 1 mg 07/24/18 12:00 07/29/18 09:15 Folic Acid PO 1 mg DAILY [facility] Administration Gabapentin 300 mg 07/23/18 21:00 07/29/18 09:17 Neurontin PO 300 mg BID [facility] Administration Hydromorphone HCl 0.5 mg 07/26/18 19:30 07/29/18 06:10 Dilaudid Pf Inj IV.PUSH 0.5 mg Q4H PRN Administration BREAKTHROUGH PAIN Levofloxacin/Dextrose 500 mg in 100 mls @ 100 mls/hr 07/24/18 18:00 07/28/18 17:52 Levaquin 500 Mg Premix Inj IV.SIG Infused Q24H [facility] Infusion Piperacillin/Tazobactam/Dextrose 50 mls @ 100 mls/hr 07/28/18 11:00 07/29/18 16:22 Zosyn 2.25 Gm Premix IV.SIG 100 mls/hr Q6H [facility] Administration Sodium Chloride 250 mls @ 15 mls/hr 07/29/18 09:00 07/29/18 10:53 Ns Inj IV.SIG 07/30/18 01:39 15 mls/hr ONCE [facility] Administration Latanoprost 1 drop 07/22/18 21:00 07/28/18 21:02 Xalatan 0.005% Opth Drops EACH EYE Not Given HS [facility] Losartan Potassium 100 mg 07/22/18 14:30 07/29/18 09:16 Cozaar PO 100 mg DAILY [facility] Administration Oxycodone HCl 5 mg 07/22/18 14:46 07/29/18 03:41 Roxicodone PO 5 mg Q4H PRN Administration breakthrough pain Oxycodone HCl 10 mg 07/22/18 22:00 07/29/18 09:19 Oxycontin Cr PO 10 mg Q12H [facility] Administration Tenofovir Disoproxil Fumarate 300 mg 07/24/18 09:00 07/28/18 08:42 Viread PO 300 mg EVERY OTHER DAY [facility] Administration Tolterodine Tartrate 4 mg 07/24/18 13:00 07/29/18 09:17 Detrol La PO 4 mg DAILY [facility] Administration Vitamin D 2,000 unit 07/25/18 09:00 07/29/18 09:17 Vitamin D3 PO 2,000 unit DAILY [facility] Administration Objective Remarks: GENERAL: Elderly male, laying in bed, appears to be pale, he seems comfortable, he is just returned from the PACU. His and stepdaughter at bedside. SKIN: Warm and dry. HEAD: Normocephalic. EYES: No scleral icterus. No injection or drainage. NECK: Supple, trachea midline. No JVD or lymphadenopathy. LYMPHATIC: No adenopathy. CARDIOVASCULAR: Regular rate and rhythm without murmurs. RESPIRATORY: Breath sounds equal bilaterally. No accessory muscle use. GASTROINTESTINAL: Abdomen soft, non-tender, nondistended. EXTREMITIES: No cyanosis, or edema. MUSCULOSKELETAL: Adequate muscle tone. NEUROLOGICAL: No obvious focal deficit. Awake, alert, and oriented x3. PSYCHIATRIC: Appropriate mood and affect; insight and judgment normal. Urogenital examination: Engel catheter in place, no active bleeding. Assessment/Plan - Plan Mr. Queen Is a 73-year-old man with a diagnosis of metastatic prostate carcinoma , he has had an excellent response to combination therapy consisting of leuprolide and Xtandi. His PSA levels have been less than 0.1 ng/dL over the past several months. He has extensive metastatic disease burden involving his axial skeleton especially his pelvis. Most recent PET CT scan revealed most of his previously active metastatic disease to be dormant, he however had intense hypermetabolic activity localized to the prostate and to the bladder. In late June he underwent cystoscopy for workup of hematuria with his former urologist Dr. Parmar, no obvious cause for hematuria was identified. He is now in the hospital with fevers, hematuria and pelvic pain. Clinically he has suspected prostatitis and is on broad-spectrum antibiotics with Zosyn and levofloxacin. Urine cultures and blood cultures are negative thus far other than forced staph epidermidis. CT scan of the abdomen/pelvis revealed no obvious cause for the hematuria. Urology has been following and I recommended bladder irrigation. Recommendations: 1. Febrile, T-max 101.6F. Suspected prostatitis, patient continues on antibiotics. With Zosyn and levofloxacin. 2. Status post emergency cystoscopy earlier today, found to have bleeding from the prostatic urethra, this was fulgurated and hemostasis was achieved. 3. Pain control, continue long and short acting opioids. 4. Metastatic prostate carcinoma, PSA less than 0.1, total testosterone 9.9, free testosterone 0.2. 5. Anemia, normocytic-secondary to hematuria. He was transfused 1 unit packed red blood cells earlier this morning, another unit packed red blood cells has been ordered for tonight.
[2018-07-29] MEDS: Levofloxacin 500 mg Premix Inj 500 MG/100 ML PIGGYBACK IV.SIG SCH (17:03)
[2018-07-29] MEDS: Latanoprost 0.005% Opth Drops 2.5 ML Bottle EACH EYE SCH (20:19)
[2018-07-29] MEDS: Sodium Chloride 0.9% Irr Bag 3,000 ML, Aminocaproic Acid Inj 3,000 MG IRRIGATION PRN ×2 (22:00)
[2018-07-30] MEDS: Acetaminophen 325 MG Tablet PO PRN ×2 (01:01→05:35)
[2018-07-30] MEDS: Sodium Chloride 0.9% Irr Bag 3,000 ML, Aminocaproic Acid Inj 3,000 MG IRRIGATION PRN ×22 (01:07→19:47)
[2018-07-30 04:27] LABS: Baso % (Auto) 0.4 % (0.0-2.0); Eos # (Auto) 0.2 th/mm3 (0.0-0.4); Eos % (Auto) 2.5 % (0.0-4.0); Lymph # (Auto) 0.8 th/mm3 (1.0-4.8); Lymph % (Auto) 12.1 % (9.0-44.0); Mean Corpuscular HGB Conc 34.5 % (32.0-36.0); Mean Corpuscular Hemoglobin 30.9 pg (27.0-34.0); Mean Corpuscular Volume 89.5 fL (80.0-100.0); Mean Platelet Volume 6.6 fL (7.0-11.0); Mono % (Auto) 14.1 % (0.0-8.0); Neut % (Auto) 70.9 % (16.0-70.0); Platelet Count 298 th/mm3 (150-450); Red Blood Count 2.12 mil/mm3 (4.50-5.90); Red Cell Distribution Width 16.6 % (11.6-17.2)
[2018-07-30 04:48] LABS: Hematocrit 18.9 % (39.0-51.0); Hemoglobin 6.5 gm/dL (13.0-17.0)
[2018-07-30 04:54] LABS: Albumin 1.5 g/dL (3.4-5.0); Alkaline Phosphatase 59 U/L (45-117); Anion Gap 7 meq/L (5-15); Aspartate Aminotransferase 15 U/L (15-37); Blood Urea Nitrogen 23 mg/dL (7-18); Calcium 6.3 mg/dL (8.5-10.1); Carbon Dioxide 25.8 meq/L (21.0-32.0); Chloride 108 meq/L (98-107); Glomerular Filtration Rate 28 mL/min (>89); Glucose,Random 102 mg/dL (74-106); Potassium 3.7 meq/L (3.5-5.1); Sodium 141 meq/L (136-145)
[2018-07-30] MEDS: Piperacil/Tazo 2.25 GM Premix 50 ML IV.SIG SCH (05:35)
[2018-07-30] MEDS ORDERED: Sodium Chlor 0.9% Inj 250 ML IV.SIG SCH (06:00)
[2018-07-30] MEDS ORDERED: Acetaminophen 325 MG Tablet PO ONE (06:41)
[2018-07-30] MEDS ORDERED: Vancomycin Consult Pharmacy OTHER PRN (06:44)
[2018-07-30 07:17] LABS: Eosinophils 3 % (0-4); Lymphocytes 10 % (9-44); Monocytes 6 % (0-8); Promyelocyte 1 % (0-0)
[2018-07-30 07:18] LABS: Platelet Estimate Normal (Normal); Platelet Morphology Clumped (Normal)
[2018-07-30] MEDS ORDERED: Vancomycin Inj 2,000 MG in Sodium Chlor 0.9% Inj 500 ML IV.SIG ONE (08:00)
[2018-07-30] MEDS: Calcium Carbonate 500 MG Tablet PO SCH ×2 (08:27→21:12)
[2018-07-30] MEDS: Gabapentin 300 MG Capsule PO SCH ×2 (08:27→21:11)
[2018-07-30] MEDS: Tenofovir 300 MG Tablet PO SCH (08:28)
[2018-07-30] MEDS: Folic Acid 1 MG Tablet PO SCH (08:28)
[2018-07-30] MEDS: Tolterodine Tartrate LA 4 MG Capsule PO SCH (08:29)
[2018-07-30] MEDS: Docusate Sodium 100 MG Capsule PO SCH ×3 (08:31→17:42)
[2018-07-30] MEDS: buPROPion 150 MG XL 24 HR Tablet PO SCH (08:33)
--- NOTE | 2018-07-30 09:47 | P.PN ---
Subjective Interval history: Follow up for persistent hematuria, metastatic prostate cancer. Patient had a fever of 101.6F last night but since then afebrile. His hemoglobin also dropped to 6.5. Had significant bleeding in the Engel catheter. Physical Exam Vital signs: Vital Signs 07/29/18 10:38 07/29/18 10:55 07/29/18 12:22 Temperature 98.8 F 98.2 F 98.2 F Pulse Rate 84 81 80 Respiratory Rate 18 14 Blood Pressure 111/64 108/55 L 100/52 L Pulse Oximetry 97 98 07/29/18 12:30 07/29/18 12:45 07/29/18 13:00 Temperature 98.4 F Pulse Rate 74 74 70 Respiratory Rate 14 14 14 Blood Pressure 100/52 L 98/55 L 93/51 L Pulse Oximetry 98 98 98 07/29/18 13:18 07/29/18 13:20 07/29/18 16:00 Temperature 97.7 F Pulse Rate 72 72 75 Respiratory Rate 16 Blood Pressure 100/53 L Pulse Oximetry 97 07/29/18 16:17 07/29/18 18:13 07/29/18 18:25 Temperature 98.9 F 99.6 F 98.7 F Pulse Rate 79 82 78 Respiratory Rate 17 17 17 Blood Pressure 100/53 L 108/55 L Pulse Oximetry 94 L 93 L 94 L 07/29/18 18:48 07/29/18 20:00 07/29/18 20:11 Temperature 98.8 F 98.9 F Pulse Rate 78 80 88 Respiratory Rate 17 16 Blood Pressure 106/54 L 106/54 L Pulse Oximetry 93 L 91 L 07/30/18 00:00 07/30/18 00:21 07/30/18 01:00 Temperature 99.9 F H 101.5 F H Pulse Rate 80 83 Respiratory Rate 16 Blood Pressure 102/51 L Pulse Oximetry 90 L 07/30/18 04:00 07/30/18 05:39 07/30/18 05:44 Temperature 98.6 F 98.4 F Pulse Rate 67 65 Respiratory Rate 18 16 Blood Pressure 93/47 L 86/41 L 84/45 L Pulse Oximetry 97 99 07/30/18 05:50 07/30/18 06:10 07/30/18 06:12 Temperature 98.4 F 97.0 F L 97.5 F L Pulse Rate 65 62 59 L Respiratory Rate 16 17 Blood Pressure 86/41 L 87/46 L 91/50 L Pulse Oximetry 100 100 99 07/30/18 06:47 07/30/18 08:46 Temperature 98.7 F Pulse Rate 60 63 Respiratory Rate 17 Blood Pressure 93/47 L 100/55 L Pulse Oximetry 100 100 Intake & Output 07/29/18 07/30/18 07/30/18 18:59 06:59 18:59 Intake Total 1920 / 1920 530 / 530 0 / 0 Output Total 455 / 455 Balance 1465 / 1465 530 / 530 0 / 0 Weight 84 kg Intake: IV 200 / 200 130 / 130 Levaquin 500 mg Premix Inj 500 100 / 100 mg In 100 ml @ 100 mls/hr IV. SIG Q24H [facility] Rx#:[id number] Zosyn 2.25 GM Premix 50 ML @ 100 / 100 100 / 100 100 mls/hr IV.SIG Q6H [facility] Rx#: [id number] NS Inj 250 ML @ 15 mls/hr IV. 30 / 30 SIG ONCE [facility] Rx#:[id number] Oral 720 / 720 Anesthesia Amount 1000 / 1000 Intake (Blood Product) Amt 0 / 0 400 / 400 0 / 0 Rbc As-3 Leukoreduced Unit 0 / 0 [id number] Rbc As-3 Leukoreduced Unit 0 / 0 400 / 400 [id number] Rbc As-3 Leukoreduced Unit 0 / 0 0 / 0 [id number] Output: Estimated Blood Loss 5 / 5 Urine Amount (Catheter) 450 / 450 Indwelling Urethral Catheter 450 / 450 Other: Bladder Irrigation Fluid - 100 Amount Instilled Indwelling Urethral Catheter 1,500 14,500 Bladder Irrigation Fluid - Amount Drained Indwelling Urethral Catheter 2,400 18,250 Date of Last Bowel Movement 07/28/18 07/28/18 Narrative: GENERAL: Alert, oriented 3, NAD. SKIN: Warm and dry. HEAD: Normocephalic. EYES: No scleral icterus. No injection or drainage. NECK: Supple, trachea midline. No JVD or lymphadenopathy. CARDIOVASCULAR: Regular rate and rhythm without murmurs, gallops, or rubs. RESPIRATORY: Breath sounds equal bilaterally. No accessory muscle use. GASTROINTESTINAL: Abdomen soft, tender to palpation in the lower abdomen, nondistended. MUSCULOSKELETAL: No cyanosis, or edema. Tender to palpation over lower extremities. : Engel cath bag has light pink fluid. BACK: Nontender without obvious deformity. No CVA tenderness. - Urinary Catheter Management Indwelling Urethral Catheter Cath placed during this visit: yes Reason for continuing: Gross Hematuria Insertion date: 07/29/18 Insertion time: 11:00 Results - Labs CBC & Chem 7: 07/30/18 04:10 07/30/18 04:10 Laboratory Results - last 24 hr 07/23/18 07/29/18 07/29/18 16:15 09:29 09:29 WBC RBC Hgb 7.0 L Hct 20.4 L* MCV MCH MCHC RDW Plt Count MPV Prelim Diff (Auto) Neut % (Auto) Lymph % (Auto) [place] % (Auto) Eos % (Auto) Baso % (Auto) Neut # (Auto) Lymph # (Auto) [place] # (Auto) Eos # (Auto) Baso # (Auto) WBC Differential Seg Neuts % (Manual) Band Neuts % (Manual) Lymphocytes % (Manual) Monocytes % (Manual) Eosinophils % (Manual) Myelocytes % (Man) Promyelocytes % (Man) Abs Neuts (Manual) Nucleated RBCs/100 WBC Differential Comment Platelet Estimate Platelet Morphology Sodium Potassium Chloride Carbon Dioxide Anion Gap BUN Creatinine Estimated GFR Random Glucose Calcium Prot Corrected Calcium Total Bilirubin AST ALT Alkaline Phosphatase Total Protein Albumin Blood Type A Positive Antibody Screen Negative MTS Gel Crossmatch See Detail See Detail 07/29/18 07/29/18 07/30/18 14:33 16:06 04:10 WBC 8.2 RBC 2.52 L Hgb 7.8 L Hct 23.6 L MCV 93.5 MCH 30.9 MCHC 33.1 RDW 15.3 Plt Count 333 MPV 6.7 L Prelim Diff (Auto) Slide review pending Neut % (Auto) 74.3 H Lymph % (Auto) 10.7 [place] % (Auto) 12.2 H Eos % (Auto) 2.4 Baso % (Auto) 0.4 Neut # (Auto) 6.1 Lymph # (Auto) 0.9 L [place] # (Auto) 1.0 H Eos # (Auto) 0.2 Baso # (Auto) 0.0 WBC Differential Manual diff final Seg Neuts % (Manual) 79 H Band Neuts % (Manual) 2 Lymphocytes % (Manual) 5 L Monocytes % (Manual) 9 H Eosinophils % (Manual) 4 Myelocytes % (Man) 1 H Promyelocytes % (Man) Abs Neuts (Manual) 6.7 Nucleated RBCs/100 WBC 1 H Differential Comment . Platelet Estimate Normal Platelet Morphology Normal Sodium 141 Potassium 3.7 Chloride 108 H Carbon Dioxide 25.8 Anion Gap 7 BUN 23 H Creatinine 2.30 H Estimated GFR 28 L Random Glucose 102 Calcium 6.3 L* Prot Corrected Calcium 7.3 L* Total Bilirubin 0.5 AST 15 ALT Less than 6 L Alkaline Phosphatase 59 Total Protein 5.0 L D Albumin 1.5 L Blood Type Antibody Screen MTS Gel Crossmatch See Detail 07/30/18 07/30/18 07/30/18 04:10 05:03 06:49 WBC 7.0 RBC 2.12 L Hgb 6.5 L* Hct 18.9 L* MCV 89.5 D MCH 30.9 MCHC 34.5 RDW 16.6 Plt Count 298 MPV 6.6 L Prelim Diff (Auto) Slide review pending Neut % (Auto) 70.9 H Lymph % (Auto) 12.1 [place] % (Auto) 14.1 H Eos % (Auto) 2.5 Baso % (Auto) 0.4 Neut # (Auto) 5.0 Lymph # (Auto) 0.8 L [place] # (Auto) 1.0 H Eos # (Auto) 0.2 Baso # (Auto) 0.0 WBC Differential Manual diff final Seg Neuts % (Manual) 80 H Band Neuts % (Manual) Lymphocytes % (Manual) 10 Monocytes % (Manual) 6 Eosinophils % (Manual) 3 Myelocytes % (Man) Promyelocytes % (Man) 1 H Abs Neuts (Manual) 5.7 Nucleated RBCs/100 WBC Differential Comment . Platelet Estimate Normal Platelet Morphology Clumped H Sodium Potassium Chloride Carbon Dioxide Anion Gap BUN Creatinine Estimated GFR Random Glucose Calcium Prot Corrected Calcium Total Bilirubin AST ALT Alkaline Phosphatase Total Protein Albumin Blood Type Antibody Screen MTS Gel Crossmatch See Detail See Detail Microbiology 07/26/18 19:31 Blood - Peripheral Aerobic Blood Culture - Preliminary No growth in 3 days 07/26/18 19:31 Blood - Peripheral Anaerobic Blood Culture - Final QNS - See aerobic report. 07/26/18 19:25 Blood - Peripheral Aerobic Blood Culture - Preliminary No growth in 3 days 07/26/18 19:25 Blood - Peripheral Anaerobic Blood Culture - Preliminary No growth in 3 days Assessment and Plan - Assessment (1) Acute UTI Code(s): N39.0 - Urinary tract infection, site not specified Status: Acute (2) Prostate cancer metastatic to bone Code(s): C61 - Malignant neoplasm of prostate; C79.51 - Secondary malignant neoplasm of bone Status: Acute - Plan Mr. Queen is a pleasant 73-year-old male with a history of metastatic prostate carcinoma who was admitted to the hospital due to fever, hematuria and pelvic pain. Infectious disease as well as oncology and urology have been following patient. Patient is currently on levofloxacin and Zosyn for suspected prostatitis. Acute prostatitis -Continue levofloxacin 500 mg daily, Zosyn 3.375 g every 6 hours. -ID is following. Urine culture showed staph epi which is not a typical organism to cause prostatitis. -If patient has persistent fever, we will discuss with on-call ID. Otherwise , we will discuss with Dr. Gorman on 07/31/2018. Persistent hematuria Bilateral hydronephrosis on ultrasound left greater than right -We consulted Dr. Miranda (Urology) yesterday who exchanged the catheter. Urine is not bloody anymore. -We greatly appreciate Dr. Miranda's help. -Patient started having significant hematuria again on 07/29/2018. -Patient underwent surgical intervention on 07/29/2018. -Will wait for Urology eval. Acute Urinary tract blood loss -Yesterday, Hgb was 7.1, patient received PRBCs. -Hgb dropped to 6.5 again today. Will transfuse 2 units. Metastatic prostate carcinoma -Oncology is following. Patient is has had good response to leuprolide and Enzalutamide (Xtandi). -Continue oxycodone for pain control. Hypocalcemia -Mg was 2.1. Calcium went down to 7.2. We gave 2g of Calcium gluconate IV on 07/27/2018. Discharge Plan: Hopefully home with home health per PT recs. Full code. Ambulation.
[2018-07-30] MEDS: oxyCODONE 10 MG Controlled Release Tablet PO SCH ×2 (09:53→22:05)
--- NOTE | 2018-07-30 11:06 | P.PNONC ---
Subjective Interval history: Patient seen and examined, vital signs, labs, medications and overnight events reviewed. Last evening the patient try to sit up, he almost immediately developed gross hematuria, per the nursing staff for Engel bags were almost full of red blood. The patient subsequently was advised to recline in bed, the bed was positioned in a way where his hematuria resolved. Continues bladder irrigation rate was up titrated. As a result his hematuria seems to have abated. His hemoglobin dropped down to 6.8 g/dL overnight despite receiving 2 unit packed red blood cells in the past 24 hours. He is currently receiving a second unit of packed red blood cells today. Objective Vital Signs/Intake & Output: Vital Signs 07/29/18 12:22 07/29/18 12:30 07/29/18 12:45 Temperature 98.2 F Pulse Rate 80 74 74 Respiratory Rate 14 14 14 Blood Pressure 100/52 L 100/52 L 98/55 L Pulse Oximetry 98 98 98 07/29/18 13:00 07/29/18 13:18 07/29/18 13:20 Temperature 98.4 F 97.7 F Pulse Rate 70 72 72 Respiratory Rate 14 16 Blood Pressure 93/51 L 100/53 L Pulse Oximetry 98 97 07/29/18 16:00 07/29/18 16:17 07/29/18 18:13 Temperature 98.9 F 99.6 F Pulse Rate 75 79 82 Respiratory Rate 17 17 Blood Pressure 100/53 L Pulse Oximetry 94 L 93 L 07/29/18 18:25 07/29/18 18:48 07/29/18 20:00 Temperature 98.7 F 98.8 F 98.9 F Pulse Rate 78 78 80 Respiratory Rate 17 17 16 Blood Pressure 108/55 L 106/54 L 106/54 L Pulse Oximetry 94 L 93 L 91 L 07/29/18 20:11 07/30/18 00:00 07/30/18 00:21 Temperature 99.9 F H Pulse Rate 88 80 83 Respiratory Rate 16 Blood Pressure 102/51 L Pulse Oximetry 90 L 07/30/18 01:00 07/30/18 04:00 07/30/18 05:39 Temperature 101.5 F H 98.6 F 98.4 F Pulse Rate 67 65 Respiratory Rate 18 16 Blood Pressure 93/47 L 86/41 L Pulse Oximetry 97 99 07/30/18 05:44 07/30/18 05:50 07/30/18 06:10 Temperature 98.4 F 97.0 F L Pulse Rate 65 62 Respiratory Rate 16 Blood Pressure 84/45 L 86/41 L 87/46 L Pulse Oximetry 100 100 07/30/18 06:12 07/30/18 06:47 07/30/18 08:46 Temperature 97.5 F L 98.7 F Pulse Rate 59 L 60 63 Respiratory Rate 17 17 Blood Pressure 91/50 L 93/47 L 100/55 L Pulse Oximetry 99 100 100 07/30/18 10:45 Temperature 98.5 F Pulse Rate 64 Respiratory Rate 18 Blood Pressure 93/49 L Pulse Oximetry 96 Intake & Output 07/29/18 07/30/18 07/30/18 18:59 06:59 18:59 Intake Total 1920 / 1920 530 / 530 0 / 0 Output Total 455 / 455 Balance 1465 / 1465 530 / 530 0 / 0 Weight 84 kg Intake: IV 200 / 200 130 / 130 Levaquin 500 mg Premix Inj 500 100 / 100 mg In 100 ml @ 100 mls/hr IV. SIG Q24H [facility] Rx#:[id number] Zosyn 2.25 GM Premix 50 ML @ 100 / 100 100 / 100 100 mls/hr IV.SIG Q6H [facility] Rx#: [id number] NS Inj 250 ML @ 15 mls/hr IV. 30 / 30 SIG ONCE [facility] Rx#:[id number] Oral 720 / 720 Anesthesia Amount 1000 / 1000 Intake (Blood Product) Amt 0 / 0 400 / 400 0 / 0 Rbc As-3 Leukoreduced Unit 0 / 0 [id number] Rbc As-3 Leukoreduced Unit 0 / 0 [id number] Rbc As-3 Leukoreduced Unit 0 / 0 400 / 400 [id number] Rbc As-3 Leukoreduced Unit 0 / 0 0 / 0 [id number] Output: Estimated Blood Loss 5 / 5 Urine Amount (Catheter) 450 / 450 Indwelling Urethral Catheter 450 / 450 Other: Bladder Irrigation Fluid - 100 Amount Instilled Indwelling Urethral Catheter 1,500 14,500 Bladder Irrigation Fluid - Amount Drained Indwelling Urethral Catheter 2,400 18,250 Date of Last Bowel Movement 07/28/18 07/28/18 Result Diagrams: 07/30/18 04:10 07/30/18 04:10 Laboratory Results: Laboratory Results - last 24 hr 07/23/18 07/29/18 07/29/18 16:15 09:29 14:33 WBC 8.2 RBC 2.52 L Hgb 7.8 L Hct 23.6 L MCV 93.5 MCH 30.9 MCHC 33.1 RDW 15.3 Plt Count 333 MPV 6.7 L Prelim Diff (Auto) Slide review pending Neut % (Auto) 74.3 H Lymph % (Auto) 10.7 [place] % (Auto) 12.2 H Eos % (Auto) 2.4 Baso % (Auto) 0.4 Neut # (Auto) 6.1 Lymph # (Auto) 0.9 L [place] # (Auto) 1.0 H Eos # (Auto) 0.2 Baso # (Auto) 0.0 WBC Differential Manual diff final Seg Neuts % (Manual) 79 H Band Neuts % (Manual) 2 Lymphocytes % (Manual) 5 L Monocytes % (Manual) 9 H Eosinophils % (Manual) 4 Myelocytes % (Man) 1 H Promyelocytes % (Man) Abs Neuts (Manual) 6.7 Nucleated RBCs/100 WBC 1 H Differential Comment . Platelet Estimate Normal Platelet Morphology Normal Sodium Potassium Chloride Carbon Dioxide Anion Gap BUN Creatinine Estimated GFR Random Glucose Calcium Prot Corrected Calcium Total Bilirubin AST ALT Alkaline Phosphatase Total Protein Albumin MTS Gel Crossmatch See Detail See Detail 07/29/18 07/30/18 07/30/18 16:06 04:10 04:10 WBC 7.0 RBC 2.12 L Hgb 6.5 L* Hct 18.9 L* MCV 89.5 D MCH 30.9 MCHC 34.5 RDW 16.6 Plt Count 298 MPV 6.6 L Prelim Diff (Auto) Slide review pending Neut % (Auto) 70.9 H Lymph % (Auto) 12.1 Charlotte % (Auto) 14.1 H Eos % (Auto) 2.5 Baso % (Auto) 0.4 Neut # (Auto) 5.0 Lymph # (Auto) 0.8 L [place] # (Auto) 1.0 H Eos # (Auto) 0.2 Baso # (Auto) 0.0 WBC Differential Manual diff final Seg Neuts % (Manual) 80 H Band Neuts % (Manual) Lymphocytes % (Manual) 10 Monocytes % (Manual) 6 Eosinophils % (Manual) 3 Myelocytes % (Man) Promyelocytes % (Man) 1 H Abs Neuts (Manual) 5.7 Nucleated RBCs/100 WBC Differential Comment . Platelet Estimate Normal Platelet Morphology Clumped H Sodium 141 Potassium 3.7 Chloride 108 H Carbon Dioxide 25.8 Anion Gap 7 BUN 23 H Creatinine 2.30 H Estimated GFR 28 L Random Glucose 102 Calcium 6.3 L* Prot Corrected Calcium 7.3 L* Total Bilirubin 0.5 AST 15 ALT Less than 6 L Alkaline Phosphatase 59 Total Protein 5.0 L D Albumin 1.5 L MTS Gel Crossmatch See Detail 07/30/18 07/30/18 05:03 06:49 WBC RBC Hgb Hct MCV MCH MCHC RDW Plt Count MPV Prelim Diff (Auto) Neut % (Auto) Lymph % (Auto) Charlotte % (Auto) Eos % (Auto) Baso % (Auto) Neut # (Auto) Lymph # (Auto) Charlotte # (Auto) Eos # (Auto) Baso # (Auto) WBC Differential Seg Neuts % (Manual) Band Neuts % (Manual) Lymphocytes % (Manual) Monocytes % (Manual) Eosinophils % (Manual) Myelocytes % (Man) Promyelocytes % (Man) Abs Neuts (Manual) Nucleated RBCs/100 WBC Differential Comment Platelet Estimate Platelet Morphology Sodium Potassium Chloride Carbon Dioxide Anion Gap BUN Creatinine Estimated GFR Random Glucose Calcium Prot Corrected Calcium Total Bilirubin AST ALT Alkaline Phosphatase Total Protein Albumin MTS Gel Crossmatch See Detail See Detail Culture Results: Microbiology 07/26/18 19:31 Aerobic Blood Culture - Preliminary Blood - Peripheral No growth in 4 days Anaerobic Blood Culture - Final QNS - See aerobic report. 07/26/18 19:25 Aerobic Blood Culture - Preliminary Blood - Peripheral No growth in 4 days Anaerobic Blood Culture - Preliminary No growth in 4 days 07/22/18 11:16 Aerobic Blood Culture - Final Blood - Peripheral No growth in 5 days Anaerobic Blood Culture - Final No growth in 5 days 07/22/18 11:00 Aerobic Blood Culture - Final Blood - Peripheral No growth in 5 days Anaerobic Blood Culture - Final No growth in 5 days Medications: Active Medications Generic Name Dose Route Start Last Admin Trade Name Freq PRN Reason Stop Dose Admin Acetaminophen 650 mg 07/22/18 13:55 07/30/18 05:35 Tylenol PO 650 mg Q4H PRN Administration fever Bupropion HCl 150 mg 07/22/18 14:00 09/16/18 08:33 Wellbutrin Xl PO 150 mg DAILY [facility] Administration Sodium Chloride 3,000 ml/ 0 ml 07/29/18 23:03 07/30/18 09:46 Aminocaproic Acid 3,000 mg IRRIGATION 3,000 irrig.soln Q24H PRN Administration TO KEEP URINE CLEAR Diazepam 5 mg 07/22/18 13:57 07/29/18 07:27 Valium PO 5 mg DAILY PRN Administration Anxiety Docusate Sodium 100 mg 07/25/18 15:45 07/30/18 08:31 Colace PO 100 mg TID [facility] Administration Folic Acid 1 mg 07/24/18 12:00 07/30/18 08:28 Folic Acid PO 1 mg DAILY [facility] Administration Gabapentin 300 mg 07/23/18 21:00 07/30/18 08:27 Neurontin PO 300 mg BID [facility] Administration Hydromorphone HCl 0.5 mg 07/26/18 19:30 07/29/18 06:10 Dilaudid Pf Inj IV.PUSH 0.5 mg Q4H PRN Administration BREAKTHROUGH PAIN Levofloxacin/Dextrose 500 mg in 100 mls @ 100 mls/hr 07/24/18 18:00 07/29/18 18:05 Levaquin 500 Mg Premix Inj IV.SIG Infused Q24H [facility] Infusion Sodium Chloride 250 mls @ 15 mls/hr 07/30/18 06:00 07/30/18 07:33 Ns Inj IV.SIG 07/30/18 22:39 Not Given ONCE [facility] Latanoprost 1 drop 07/22/18 21:00 07/29/18 20:19 Xalatan 0.005% Opth Drops EACH EYE Not Given HS [facility] Losartan Potassium 100 mg 07/22/18 14:30 07/30/18 08:26 Cozaar PO Not Given DAILY [facility] Oxycodone HCl 5 mg 07/22/18 14:46 07/30/18 01:04 Roxicodone PO 5 mg Q4H PRN Administration breakthrough pain Oxycodone HCl 10 mg 07/22/18 22:00 07/30/18 09:53 Oxycontin Cr PO 10 mg Q12H [facility] Administration Tenofovir Disoproxil Fumarate 300 mg 07/24/18 09:00 07/30/18 08:28 Viread PO 300 mg EVERY OTHER DAY [facility] Administration Tolterodine Tartrate 4 mg 07/24/18 13:00 07/30/18 08:29 Detrol La PO 4 mg DAILY [facility] Administration Vitamin D 2,000 unit 07/25/18 09:00 07/30/18 08:27 Vitamin D3 PO 2,000 unit DAILY [facility] Administration Objective Remarks: GENERAL: Elderly male, laying in bed, appears to be pale and frail. He is not acutely distressed. SKIN: Warm and dry. HEAD: Normocephalic. EYES: No scleral icterus. No injection or drainage. NECK: Supple, trachea midline. No JVD or lymphadenopathy. LYMPHATIC: No adenopathy. CARDIOVASCULAR: Regular rate and rhythm without murmurs. RESPIRATORY: Breath sounds equal bilaterally. No accessory muscle use. GASTROINTESTINAL: Abdomen is soft, there is some tenderness in the suprapubic areas, positive bowel sounds, no palpable organ enlargement, penile area was examined, Engel catheter is in place, no external bleeding noted. Engel tubing and Engel bag was evaluated, he has pink tinged urine in the Engel bag. No clots are appreciated. EXTREMITIES: No cyanosis, or edema. MUSCULOSKELETAL: Adequate muscle tone. NEUROLOGICAL: No obvious focal deficit. Awake, alert, and oriented x3. PSYCHIATRIC: Appropriate mood and affect; insight and judgment normal. Assessment/Plan - Plan Mr. Queen Is a 73-year-old man with a diagnosis of metastatic prostate carcinoma , he has had an excellent response to combination therapy consisting of leuprolide and Xtandi. His PSA levels have been less than 0.1 ng/dL over the past several months. He has extensive metastatic disease burden involving his axial skeleton especially his pelvis. Most recent PET CT scan revealed most of his previously active metastatic disease to be dormant, he however had intense hypermetabolic activity localized to the prostate and to the bladder. In late June he underwent cystoscopy for workup of hematuria with his former urologist Dr. Parmar, no obvious cause for hematuria was identified. He is now in the hospital with fevers, hematuria and pelvic pain. Clinically he has suspected prostatitis and is on broad-spectrum antibiotics with Zosyn and levofloxacin. Urine cultures and blood cultures are negative thus far other than forced staph epidermidis. CT scan of the abdomen/pelvis revealed no obvious cause for the hematuria. Urology has been following and I recommended bladder irrigation. Recommendations: 1. Febrile: Continues to have fevers, repeat blood cultures and urine cultures ordered for today. Vancomycin added, Zosyn will be discontinued as this may itself because drug fever, Zosyn will be substituted with cefepime. Continue levofloxacin. 2. Ongoing hematuria: Continue bladder irrigation at a high rate. It seems that his hematuria is very positional i.e. related to patient's movements. I am concerned he may have a large volume hematuria without warning and unpredictably going forward. I will discuss treatment strategies going forward with Dr. Miranda. 3. Pain control, continue long and short acting opioids. 4. Metastatic prostate carcinoma, PSA less than 0.1, total testosterone 9.9, free testosterone 0.2. 5. Anemia, related to large volume hematuria, continue red cell transfusions.
--- NOTE | 2018-07-30 13:18 | P.PNURO ---
Subjective Patient symptoms today: Pt seen and examined. Still bleeding at times. Urine now clear. Objective Vital Signs: Vital Signs 07/29/18 13:18 07/29/18 13:20 07/29/18 16:00 Temperature 97.7 F Pulse Rate 72 72 75 Respiratory Rate 16 Blood Pressure 100/53 L Pulse Oximetry 97 07/29/18 16:17 07/29/18 18:13 07/29/18 18:25 Temperature 98.9 F 99.6 F 98.7 F Pulse Rate 79 82 78 Respiratory Rate 17 17 17 Blood Pressure 100/53 L 108/55 L Pulse Oximetry 94 L 93 L 94 L 07/29/18 18:48 07/29/18 20:00 07/29/18 20:11 Temperature 98.8 F 98.9 F Pulse Rate 78 80 88 Respiratory Rate 17 16 Blood Pressure 106/54 L 106/54 L Pulse Oximetry 93 L 91 L 07/30/18 00:00 07/30/18 00:21 07/30/18 01:00 Temperature 99.9 F H 101.5 F H Pulse Rate 80 83 Respiratory Rate 16 Blood Pressure 102/51 L Pulse Oximetry 90 L 07/30/18 04:00 07/30/18 05:39 07/30/18 05:44 Temperature 98.6 F 98.4 F Pulse Rate 67 65 Respiratory Rate 18 16 Blood Pressure 93/47 L 86/41 L 84/45 L Pulse Oximetry 97 99 07/30/18 05:50 07/30/18 06:10 07/30/18 06:12 Temperature 98.4 F 97.0 F L 97.5 F L Pulse Rate 65 62 59 L Respiratory Rate 16 17 Blood Pressure 86/41 L 87/46 L 91/50 L Pulse Oximetry 100 100 99 07/30/18 06:47 07/30/18 08:46 07/30/18 10:45 Temperature 98.7 F 98.5 F Pulse Rate 60 63 64 Respiratory Rate 17 18 Blood Pressure 93/47 L 100/55 L 93/49 L Pulse Oximetry 100 100 96 07/30/18 11:05 07/30/18 12:01 07/30/18 12:04 Temperature 98.7 F 97.8 F 97.8 F Pulse Rate 71 68 67 Respiratory Rate 18 17 17 Blood Pressure 98/60 L 100/54 L 100/54 L Pulse Oximetry 100 97 100 07/30/18 12:46 Temperature 98 F Pulse Rate 69 Respiratory Rate 17 Blood Pressure 94/56 L Pulse Oximetry 97 Intake & Output 07/29/18 07/30/18 07/30/18 18:59 06:59 18:59 Intake Total 1920 / 1920 530 / 530 520 / 520 Output Total 455 / 455 Balance 1465 / 1465 530 / 530 520 / 520 Weight 84 kg Intake: IV 200 / 200 130 / 130 520 / 520 Levaquin 500 mg Premix Inj 500 100 / 100 mg In 100 ml @ 100 mls/hr IV. SIG Q24H [facility] Rx#:[id number] Zosyn 2.25 GM Premix 50 ML @ 100 / 100 100 / 100 100 mls/hr IV.SIG Q6H [facility] Rx#: [id number] NS Inj 250 ML @ 15 mls/hr IV. 30 / 30 SIG ONCE [facility] Rx#:[id number] Vancomycin Inj 2,000 MG In NS 520 / 520 Inj 500 ML @ 250 mls/hr IV.SIG ONCE [facility] Rx#:[id number] Oral 720 / 720 Anesthesia Amount 1000 / 1000 Intake (Blood Product) Amt 0 / 0 400 / 400 0 / 0 Rbc As-3 Leukoreduced Unit 0 / 0 [id number] Rbc As-3 Leukoreduced Unit 0 / 0 [id number] Rbc As-3 Leukoreduced Unit 0 / 0 400 / 400 [id number] Rbc As-3 Leukoreduced Unit 0 / 0 0 / 0 [id number] Output: Estimated Blood Loss 5 / 5 Urine Amount (Catheter) 450 / 450 Indwelling Urethral Catheter 450 / 450 Other: Bladder Irrigation Fluid - 100 Amount Instilled Indwelling Urethral Catheter 1,500 14,500 Bladder Irrigation Fluid - Amount Drained Indwelling Urethral Catheter 2,400 18,250 Date of Last Bowel Movement 07/28/18 07/28/18 Result Diagrams: 07/30/18 04:10 07/30/18 04:10 Medications and IVs: Active Medications Generic Name Dose Route Start Last Admin Trade Name Freq PRN Reason Stop Dose Admin Acetaminophen 650 mg 07/22/18 13:55 07/30/18 05:35 Tylenol PO 650 mg Q4H PRN Administration fever Acetaminophen 650 mg 07/29/18 08:29 Tylenol PO Q4H PRN SEE LABEL COMMENTS Bupropion HCl 150 mg 07/22/18 14:00 07/30/18 08:33 Wellbutrin Xl PO 150 mg DAILY [facility] Administration Sodium Chloride 3,000 ml/ 0 ml 07/29/18 23:03 07/30/18 11:59 Aminocaproic Acid 3,000 mg IRRIGATION 3,000 irrig.soln Q24H PRN Administration TO KEEP URINE CLEAR Diazepam 5 mg 07/22/18 13:57 07/29/18 07:27 Valium PO 5 mg DAILY PRN Administration Anxiety Docusate Sodium 100 mg 07/25/18 15:45 07/30/18 08:31 Colace PO 100 mg TID [facility] Administration Folic Acid 1 mg 07/24/18 12:00 07/30/18 08:28 Folic Acid PO 1 mg DAILY [facility] Administration Gabapentin 300 mg 07/23/18 21:00 07/30/18 08:27 Neurontin PO 300 mg BID [facility] Administration Hydromorphone HCl 0.5 mg 07/26/18 19:30 07/29/18 06:10 Dilaudid Pf Inj IV.PUSH 0.5 mg Q4H PRN Administration BREAKTHROUGH PAIN Levofloxacin/Dextrose 500 mg in 100 mls @ 100 mls/hr 07/24/18 18:00 07/29/18 18:05 Levaquin 500 Mg Premix Inj IV.SIG Infused Q24H [facility] Infusion Sodium Chloride 250 mls @ 15 mls/hr 07/30/18 06:00 07/30/18 07:33 Ns Inj IV.SIG 07/30/18 22:39 Not Given ONCE [facility] Latanoprost 1 drop 07/22/18 21:00 07/29/18 20:19 Xalatan 0.005% Opth Drops EACH EYE Not Given HS [facility] Oxycodone HCl 5 mg 07/22/18 14:46 07/30/18 01:04 Roxicodone PO 5 mg Q4H PRN Administration breakthrough pain Oxycodone HCl 10 mg 07/22/18 22:00 07/30/18 09:53 Oxycontin Cr PO 10 mg Q12H [facility] Administration Pom: (Lubiprostone [ 0 each 07/22/18 21:00 Amitiza] 24 Mcg) PO BID [facility] Pharmacy Profile Note 1 each 07/30/18 06:44 Vancomycin Consult Pharmacy OTHER UNSCH PRN Pharmacy to dose Tenofovir Disoproxil Fumarate 300 mg 07/24/18 09:00 07/30/18 08:28 Viread PO 300 mg EVERY OTHER DAY [facility] Administration Tolterodine Tartrate 4 mg 07/24/18 13:00 07/30/18 08:29 Detrol La PO 4 mg DAILY [facility] Administration Vitamin D 2,000 unit 07/25/18 09:00 07/30/18 08:27 Vitamin D3 PO 2,000 unit DAILY [facility] Administration Objective Remarks: IVONNE RRR Clear lungs Palacios is in place, urine is light pink 07/27 Abd:soft,nt,nd Palacios on CBI; now with pink urine; clots cleared. 07/28 Abd:soft,nt, nd Palacios with clear urine. 07/29 Abd:soft,nt,nd [place]acios with gross hematuria with clots. 07/30 Abd:soft,nt,nd Palacios; now clear. Assessment and Plan - Plan 73y.o M with other medical issues listed in HPI Urology consulted for hematuria, which is resolving now No additional recommendations, same as below - Continue care as per primary team - No acute intervention needed - Hematuria can be related to self cath and UTI as well as to previous radiation. - Continue current treatment, follow ID recommendations - Manual irrigation of the bladder may help to get rid of bladder clots/debris seen in the bladder on Sono. Do it BID - Pt to see his urologist after d/c for further management, may need cysto as outpt. 07/27/18 73 y.o male with metastatic CaP with gross hematuria 24F 3-way palacios in place; clots irrigated and CBI started Hold SQ Heparin; will order SCD's instead Will need cystoscopy at later date and may need HBO as outpt to help RX Radiation cystitis Will follow. 07/28 73 y.o male with metastatic CaP with gross hematuria 24F 3-way palacios in place; urine now clear Cysto as outpt. 07/29 73 y.o male with metastatic CaP with gross hematuria Will need cysto with fulguration of bleeding in OR today Continue NPO. 07/30 73 y.o male with metastatic CaP with gross hematuria Continue supportive measures/transfusion/[facility] CBI To d/w Radiation oncology tomorrow. D/W Dr. Gant
--- NOTE | 2018-07-30 15:50 | MB ---
cc: Neeraj Melendez MD DATE: 07/30/2018 REASON FOR CONSULTATION: Chronic kidney disease with elevated BUN and creatinine, for evaluation. 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 I was called to see the patient because of elevated BUN and creatinine. The patient has creatinine of 2.0 on admission, which improved to 1.6-1.7, and now it has gone up to 2.3. The patient has gross hematuria. He was seen by Urology and had cystoscopy done yesterday. He is still on bladder irrigation. The patient has decreased appetite. He does not have any nausea or vomiting. There is no history of diarrhea. The patient has been following by the hematology and he received chemotherapy including leuprolide and Xtandi. PAST MEDICAL HISTORY: Hypertension, chronic kidney disease, history of prostate cancer with metastasis to bone. PAST SURGICAL HISTORY: Cholecystectomy, cystoscopy, history of hip replacement. REVIEW OF SYSTEMS: The patient has generalized weakness, feeling tired, has decreased appetite. There is no nausea or vomiting. No shortness of breath. No chest pain. No palpitation. He has mild abdominal pain, mainly in the left flank area. There is no history of diarrhea. Currently, he has Engel catheter and getting bladder irrigation. SOCIAL HISTORY: The patient has past history of smoking. No history of heavy alcoholism. FAMILY HISTORY: Noncontributory. ALLERGIES: HE IS ALLERGIC TO MORPHINE. MEDICATIONS: Currently, he is on the following medications: 1. Tylenol as needed. 2. Wellbutrin 150 mg once a day. 3. Valium 5 mg p.r.n. 4. Colace 100 mg t.i.d. 5. Folic acid 1 mg daily. 6. Neurontin 300 mg b.i.d. 7. Dilaudid as needed. 8. Xalatan eyedrops. 9. Levaquin 500 mg once a day. 10. Cozaar 100 mg daily. 11. Oxycodone 5 mg once a day. 12. Tenofovir 300 mg every other day. 13. Detrol LA 4 mg daily. 14. Vitamin D3 at 2000 units once a day. PHYSICAL EXAMINATION: GENERAL: The patient is awake, alert. He is not in acute distress. VITAL SIGNS: Blood pressure is 100/54. His blood pressure has been on the lower side with some readings of systolic in the 80s, temperature is 97.8, oxygen saturation is 97%-100%. HEENT: Pupils are mid-constricted. Nonicteric sclerae. Conjunctivae are pale. NECK: Supple. JVD is not elevated. LUNGS: The patient has bilateral good air entry with occasional wheezing. HEART: S1, S2. Regular rate and rhythm. ABDOMEN: Distended, soft, lax. There is mild left flank tenderness. There is no rebound or rigidity. Bowel sounds positive. EXTREMITIES: He has no leg edema. INVESTIGATIONS: WBC count is 7.0, hemoglobin 6.5, platelet count of 298, neutrophils 70.9. INR is 1.1. Sodium 141, potassium 3.7, chloride 108, bicarbonate 25.8, BUN 23, creatinine 2.3, calcium corrected is 7.3. AST is 15, ALT is less than 6, alkaline phosphatase 59, total protein is 5.0 with albumin of 1.5. Testosterone level is 9.9, which is low and free testosterone is 0.2. Urinalysis showing protein of 100 with few bacteria and wbc 31. Urine culture showing Staphylococcus epidermidis. Blood culture pending. IMAGING STUDIES: The patient has CT scan of the abdomen and pelvis done without IV contrast, and it shows that he has abnormal bladder with increased density. Engel catheter in place. Mild to moderate bilateral hydronephrosis. Ultrasound of the kidneys was done, and it shows bilateral mild hydronephrosis, left greater than the right. ASSESSMENT AND PLAN: 1. Chronic kidney disease with acute worsening. 2. Anemia. 3. Metastatic prostate cancer. 4. Urinary tract infection. 5. Hematuria. The patient has been followed by urology and oncology. He is responding to chemotherapy. His PSA level was low, and he now has hematuria and also getting antibiotic for urinary tract infection. Currently, his hemoglobin dropped, and he is getting the current blood transfusion. The calcium corrected is also low at 7.3. I will check his phosphorus, put him on some calcium replacement. Blood pressure is on the lower side. I will discontinue the losartan for him. He has chronic kidney disease, and there is some acute worsening, could be related to urinary tract infection. He has bilateral hydronephrosis, but this seems to be chronic. He has been following with Dr. Ridge Escobar, and I will ask Dr. Ortega to follow him from tomorrow, and he can have the access to find out his previous record also, and if need to work up more about the hydronephrosis, then he can order some more workup. Thank you for the consultation. The patient will be followed by Dr. Ortega from tomorrow. MD EMMANUEL Thomas/nam , 12:37 PM , 12:48 PM
[2018-07-30] MEDS: HYDROmorphone PF Inj 2 MG/ML Vial IV.PUSH PRN (17:40)
[2018-07-30] MEDS: Levofloxacin 500 mg Premix Inj 500 MG/100 ML PIGGYBACK IV.SIG SCH (17:41)
[2018-07-30] MEDS: diazePAM 5 MG Tablet PO PRN (21:12)
[2018-07-30] MEDS: Latanoprost 0.005% Opth Drops 2.5 ML Bottle EACH EYE SCH (21:17)
[2018-07-30] MEDS ORDERED: Belladonna Alkaloid/Opium 60 MG Supp RECTAL ONE (23:00)
[2018-07-31] MEDS: Sodium Chloride 0.9% Irr Bag 3,000 ML, Aminocaproic Acid Inj 3,000 MG IRRIGATION PRN ×4 (00:47→20:30)
[2018-07-31] MEDS: Acetaminophen 325 MG Tablet PO PRN (03:33)
[2018-07-31 07:22] LABS: Baso % (Auto) 0.5 % (0.0-2.0); Eos # (Auto) 0.1 th/mm3 (0.0-0.4); Eos % (Auto) 1.5 % (0.0-4.0); Hematocrit 23.3 % (39.0-51.0); Hemoglobin 8.1 gm/dL (13.0-17.0); Lymph # (Auto) 0.9 th/mm3 (1.0-4.8); Lymph % (Auto) 9.5 % (9.0-44.0); Mean Corpuscular HGB Conc 34.7 % (32.0-36.0); Mean Corpuscular Hemoglobin 31.6 pg (27.0-34.0); Mean Platelet Volume 6.6 fL (7.0-11.0); Mono # (Auto) 1.2 th/mm3 (0.0-0.9); Mono % (Auto) 12.8 % (0.0-8.0); Neut # (Auto) 7.3 th/mm3 (1.8-7.7); Neut % (Auto) 75.7 % (16.0-70.0); Platelet Count 283 th/mm3 (150-450); Red Blood Count 2.57 mil/mm3 (4.50-5.90); Red Cell Distribution Width 16.2 % (11.6-17.2); White Blood Count 9.7 th/mm3 (4.0-11.0)
--- NOTE | 2018-07-31 07:23 | P.PNONC ---
Subjective Interval history: Mr. Queen was seen and examined this morning, no significant hematuria overnight. The patient tells me early this morning he was given a sponge bath, he reports the movement involved did cause some pain in the lower abdomen and pelvic area. He had a fever of 102.8 Fahrenheit early this morning. He is presently on antibiotic coverage with vancomycin and levofloxacin. Zosyn was discontinued yesterday. Objective Vital Signs/Intake & Output: Vital Signs 07/30/18 08:46 07/30/18 10:45 07/30/18 11:05 Temperature 98.7 F 98.5 F 98.7 F Pulse Rate 63 64 71 Respiratory Rate 17 18 18 Blood Pressure 100/55 L 93/49 L 98/60 L Pulse Oximetry 100 96 100 07/30/18 12:01 07/30/18 12:04 07/30/18 12:46 Temperature 97.8 F 97.8 F 98 F Pulse Rate 68 67 69 Respiratory Rate 17 17 17 Blood Pressure 100/54 L 100/54 L 94/56 L Pulse Oximetry 97 100 97 07/30/18 14:00 07/30/18 14:17 07/30/18 16:00 Temperature 98.7 F 97.6 F Pulse Rate 69 74 Respiratory Rate 17 20 Blood Pressure 95/53 L 96/51 L Pulse Oximetry 97 100 07/30/18 19:42 07/30/18 20:13 07/30/18 23:12 Temperature 98.8 F 100.1 F H Pulse Rate 90 92 H 89 Respiratory Rate 16 16 Blood Pressure 114/64 114/58 L Pulse Oximetry 97 96 07/31/18 00:02 07/31/18 03:20 07/31/18 04:00 Temperature 102.8 F H Pulse Rate 90 104 H 100 H Respiratory Rate 16 Blood Pressure 108/63 Pulse Oximetry 93 L 07/31/18 06:36 Temperature 98.8 F Pulse Rate Respiratory Rate Blood Pressure Pulse Oximetry Intake & Output 07/30/18 07/31/18 07/31/18 18:59 06:59 18:59 Intake Total 1000 / 1000 1340 / 1340 Balance 1000 / 1000 1340 / 1340 Weight 84.6 kg Intake: IV 520 / 520 100 / 100 Levaquin 500 mg Premix Inj 500 100 / 100 mg In 100 ml @ 100 mls/hr IV. SIG Q24H [facility] Rx#:[id number] Vancomycin Inj 2,000 MG In NS 520 / 520 Inj 500 ML @ 250 mls/hr IV.SIG ONCE ONE Rx#:[id number] Oral 480 / 480 1240 / 1240 Intake (Blood Product) Amt 0 / 0 Rbc As-3 Leukoreduced Unit 0 / 0 [id number] Rbc As-3 Leukoreduced Unit 0 / 0 [id number] Other: Bladder Irrigation Fluid - Amount Instilled Indwelling Urethral Catheter 15,000 3,000 Bladder Irrigation Fluid - Amount Drained Indwelling Urethral Catheter 17,500 3,775 Date of Last Bowel Movement 07/28/18 Result Diagrams: 07/30/18 04:10 07/30/18 04:10 Laboratory Results: Laboratory Results - last 24 hr 07/29/18 07/30/18 07/30/18 09:29 04:10 05:03 WBC Differential Manual diff final Seg Neuts % (Manual) 80 H Lymphocytes % (Manual) 10 Monocytes % (Manual) 6 Eosinophils % (Manual) 3 Promyelocytes % (Man) 1 H Abs Neuts (Manual) 5.7 Platelet Estimate Normal Platelet Morphology Clumped H MTS Gel Crossmatch See Detail See Detail 07/30/18 06:49 WBC Differential Seg Neuts % (Manual) Lymphocytes % (Manual) Monocytes % (Manual) Eosinophils % (Manual) Promyelocytes % (Man) Abs Neuts (Manual) Platelet Estimate Platelet Morphology MTS Gel Crossmatch See Detail Culture Results: Microbiology 07/26/18 19:31 Aerobic Blood Culture - Preliminary Blood - Peripheral No growth in 4 days Anaerobic Blood Culture - Final QNS - See aerobic report. 07/26/18 19:25 Aerobic Blood Culture - Preliminary Blood - Peripheral No growth in 4 days Anaerobic Blood Culture - Preliminary No growth in 4 days Medications: Active Medications Generic Name Dose Route Start Last Admin Trade Name Freq PRN Reason Stop Dose Admin Acetaminophen 650 mg 07/22/18 13:55 07/31/18 03:33 Tylenol PO 650 mg Q4H PRN Administration fever Bupropion HCl 150 mg 07/22/18 14:00 07/30/18 08:33 Wellbutrin Xl PO 150 mg DAILY [facility] Administration Sodium Chloride 3,000 ml/ 0 ml 07/29/18 23:03 07/31/18 00:47 Aminocaproic Acid 3,000 mg IRRIGATION 3,000 irrig.soln Q24H PRN Administration TO KEEP URINE CLEAR Diazepam 5 mg 07/22/18 13:57 07/30/18 21:12 Valium PO 5 mg DAILY PRN Administration Anxiety Docusate Sodium 100 mg 07/25/18 15:45 07/30/18 17:42 Colace PO 100 mg TID [facility] Administration Folic Acid 1 mg 07/24/18 12:00 07/30/18 08:28 Folic Acid PO 1 mg DAILY [facility] Administration Gabapentin 300 mg 07/23/18 21:00 07/30/18 21:11 Neurontin PO 300 mg BID [facility] Administration Hydromorphone HCl 0.5 mg 07/26/18 19:30 07/30/18 17:40 Dilaudid Pf Inj IV.PUSH 0.5 mg Q4H PRN Administration BREAKTHROUGH PAIN Levofloxacin/Dextrose 500 mg in 100 mls @ 100 mls/hr 07/24/18 18:00 07/30/18 19:21 Levaquin 500 Mg Premix Inj IV.SIG Infused Q24H [facility] Infusion Latanoprost 1 drop 07/22/18 21:00 07/30/18 21:17 Xalatan 0.005% Opth Drops EACH EYE 1 drop HS [facility] Administration Oxycodone HCl 5 mg 07/22/18 14:46 07/31/18 03:32 Roxicodone PO 5 mg Q4H PRN Administration breakthrough pain Oxycodone HCl 10 mg 07/22/18 22:00 07/30/18 22:05 Oxycontin Cr PO 10 mg Q12H [facility] Administration Tenofovir Disoproxil Fumarate 300 mg 07/24/18 09:00 07/30/18 08:28 Viread PO 300 mg EVERY OTHER DAY [facility] Administration Tolterodine Tartrate 4 mg 07/24/18 13:00 07/30/18 08:29 Detrol La PO 4 mg DAILY [facility] Administration Vitamin D 2,000 unit 07/25/18 09:00 07/30/18 08:27 Vitamin D3 PO 2,000 unit DAILY [facility] Administration Objective Remarks: GENERAL: Elderly male, laying in bed, appears to be comfortable, he appears to be somewhat drowsy, overall appearing pale. SKIN: Warm and dry. HEAD: Normocephalic. EYES: No scleral icterus. No injection or drainage. NECK: Supple, trachea midline. No JVD or lymphadenopathy. LYMPHATIC: No adenopathy. CARDIOVASCULAR: Regular rate and rhythm without murmurs. RESPIRATORY: Breath sounds equal bilaterally. No accessory muscle use. GASTROINTESTINAL: Abdomen is soft, there is tenderness over the right lower quadrant, Engel catheter remains in place. Engel catheter tubing: Clear pink urine with some sediment noted. Gross hematuria is not observed. EXTREMITIES: No cyanosis, or edema. MUSCULOSKELETAL: Adequate muscle tone. NEUROLOGICAL: No obvious focal deficit. Awake, alert, and oriented x3. PSYCHIATRIC: Appropriate mood and affect; insight and judgment normal. Assessment/Plan - Plan Mr. Queen Is a 73-year-old man with a diagnosis of metastatic prostate carcinoma , he has had an excellent response to combination therapy consisting of leuprolide and Xtandi. His PSA levels have been less than 0.1 ng/dL over the past several months. He has extensive metastatic disease burden involving his axial skeleton especially his pelvis. Most recent PET CT scan revealed most of his previously active metastatic disease to be dormant, he however had intense hypermetabolic activity localized to the prostate and to the bladder. In late June he underwent cystoscopy for workup of hematuria with his former urologist Dr. Parmar, no obvious cause for hematuria was identified. He is now in the hospital with fevers, hematuria and pelvic pain. Clinically he has suspected prostatitis and is on broad-spectrum antibiotics with Zosyn and levofloxacin. Urine cultures and blood cultures are negative thus far other than forced staph epidermidis. CT scan of the abdomen/pelvis revealed no obvious cause for the hematuria. Urology has been following and I recommended bladder irrigation. Recommendations: 1. Febrile: Fever spike of 102.8F early this morning. Added cefepime 1 g every 24 hours; this is renally dosed. Continue levofloxacin and vancomycin. Request reevaluation with infectious diseases. 2. Ongoing hematuria: Case discussed in detail with Dr. Miranda yesterday. Dr. Miranda is concerned about the friable nature of the prostate which he suspects will continue bleeding intermittently. Dr. Miranda recommends the patient be evaluated either for palliative radiation to the prostate to control the bleeding or hyperbaric oxygen. Radiation oncology evaluation is been requested. 3. Pain control, continue long and short acting opioids. 4. Metastatic prostate carcinoma, PSA less than 0.1, total testosterone 9.9, free testosterone 0.2. 5. Anemia, related to large volume hematuria, continue red cell transfusions.
[2018-07-31 07:28] LABS: Phosphorus 2.4 mg/dL (2.5-4.9)
--- NOTE | 2018-07-31 08:50 | P.PNURO ---
Subjective Patient symptoms today: Pt seen and examined. Urine now clear. Objective Vital Signs: Vital Signs 07/30/18 10:45 07/30/18 11:05 07/30/18 12:01 Temperature 98.5 F 98.7 F 97.8 F Pulse Rate 64 71 68 Respiratory Rate 18 18 17 Blood Pressure 93/49 L 98/60 L 100/54 L Pulse Oximetry 96 100 97 07/30/18 12:04 07/30/18 12:46 07/30/18 14:00 Temperature 97.8 F 98 F Pulse Rate 67 69 69 Respiratory Rate 17 17 Blood Pressure 100/54 L 94/56 L Pulse Oximetry 100 97 07/30/18 14:17 07/30/18 16:00 07/30/18 19:42 Temperature 98.7 F 97.6 F 98.8 F Pulse Rate 74 90 Respiratory Rate 17 20 16 Blood Pressure 95/53 L 96/51 L 114/64 Pulse Oximetry 97 100 97 07/30/18 20:13 07/30/18 23:12 07/31/18 00:02 Temperature 100.1 F H Pulse Rate 92 H 89 90 Respiratory Rate 16 Blood Pressure 114/58 L Pulse Oximetry 96 07/31/18 03:20 07/31/18 04:00 07/31/18 06:36 Temperature 102.8 F H 98.8 F Pulse Rate 104 H 100 H Respiratory Rate 16 Blood Pressure 108/63 Pulse Oximetry 93 L 07/31/18 08:09 07/31/18 08:33 Temperature 99.1 F Pulse Rate 76 70 Respiratory Rate 16 Blood Pressure 108/54 L Pulse Oximetry 98 Intake & Output 07/30/18 07/31/18 07/31/18 18:59 06:59 18:59 Intake Total 1000 / 1000 1340 / 1340 Balance 1000 / 1000 1340 / 1340 Weight 84.6 kg Intake: IV 520 / 520 100 / 100 Levaquin 500 mg Premix Inj 500 100 / 100 mg In 100 ml @ 100 mls/hr IV. SIG Q24H [facility] Rx#:[id number] Vancomycin Inj 2,000 MG In NS 520 / 520 Inj 500 ML @ 250 mls/hr IV.SIG ONCE ONE Rx#:[id number] Oral 480 / 480 1240 / 1240 Intake (Blood Product) Amt 0 / 0 Rbc As-3 Leukoreduced Unit 0 / 0 [id number] Rbc As-3 Leukoreduced Unit 0 / 0 [id number] Other: Bladder Irrigation Fluid - Amount Instilled Indwelling Urethral Catheter 15,000 3,000 Bladder Irrigation Fluid - Amount Drained Indwelling Urethral Catheter 17,500 3,775 Date of Last Bowel Movement 07/28/18 Result Diagrams: 07/31/18 06:43 07/30/18 04:10 Medications and IVs: Active Medications Generic Name Dose Route Start Last Admin Trade Name Freq PRN Reason Stop Dose Admin Acetaminophen 650 mg 07/22/18 13:55 07/31/18 03:33 Tylenol PO 650 mg Q4H PRN Administration fever Acetaminophen 650 mg 07/29/18 08:29 Tylenol PO Q4H PRN SEE LABEL COMMENTS Bupropion HCl 150 mg 07/22/18 14:00 07/30/18 08:33 Wellbutrin Xl PO 150 mg DAILY [facility] Administration Sodium Chloride 3,000 ml/ 0 ml 07/29/18 23:03 07/31/18 00:47 Aminocaproic Acid 3,000 mg IRRIGATION 3,000 irrig.soln Q24H PRN Administration TO KEEP URINE CLEAR Diazepam 5 mg 07/22/18 13:57 07/30/18 21:12 Valium PO 5 mg DAILY PRN Administration Anxiety Docusate Sodium 100 mg 07/25/18 15:45 07/30/18 17:42 Colace PO 100 mg TID [facility] Administration Folic Acid 1 mg 07/24/18 12:00 07/30/18 08:28 Folic Acid PO 1 mg DAILY [facility] Administration Gabapentin 300 mg 07/23/18 21:00 07/30/18 21:11 Neurontin PO 300 mg BID [facility] Administration Hydromorphone HCl 0.5 mg 07/26/18 19:30 07/30/18 17:40 Dilaudid Pf Inj IV.PUSH 0.5 mg Q4H PRN Administration BREAKTHROUGH PAIN Levofloxacin/Dextrose 500 mg in 100 mls @ 100 mls/hr 07/24/18 18:00 07/30/18 19:21 Levaquin 500 Mg Premix Inj IV.SIG Infused Q24H [facility] Infusion Cefepime HCl 1,000 mg/ Sodium 100 mls @ 200 mls/hr 07/31/18 09:00 Chloride IV.SIG Q24HR [facility] Latanoprost 1 drop 07/22/18 21:00 07/30/18 21:17 Xalatan 0.005% Opth Drops EACH EYE 1 drop HS [facility] Administration Oxycodone HCl 5 mg 07/22/18 14:46 07/31/18 03:32 Roxicodone PO 5 mg Q4H PRN Administration breakthrough pain Oxycodone HCl 10 mg 07/22/18 22:00 07/30/18 22:05 Oxycontin Cr PO 10 mg Q12H [facility] Administration Pom: (Lubiprostone [ 0 each 07/22/18 21:00 Amitiza] 24 Mcg) PO BID [facility] Pharmacy Profile Note 1 each 07/30/18 06:44 Vancomycin Consult Pharmacy OTHER UNSCH PRN Pharmacy to dose Tenofovir Disoproxil Fumarate 300 mg 07/24/18 09:00 07/30/18 08:28 Viread PO 300 mg EVERY OTHER DAY [facility] Administration Tolterodine Tartrate 4 mg 07/24/18 13:00 07/30/18 08:29 Detrol La PO 4 mg DAILY [facility] Administration Vitamin D 2,000 unit 07/25/18 09:00 07/30/18 08:27 Vitamin D3 PO 2,000 unit DAILY [facility] Administration Objective Remarks: IVONNE RRR Clear lungs [place] is in place, urine is light pink 07/27 Abd:soft,nt,nd [place] on CBI; now with pink urine; clots cleared. 07/28 Abd:soft,nt, nd [place] with clear urine. 07/29 Abd:soft,nt,nd [place] with gross hematuria with clots. 07/30 Abd:soft,nt,nd [place]; now clear. 07/31 Abd:soft,nt,nd [place]; now clear. Assessment and Plan - Plan 73y.o M with other medical issues listed in HPI Urology consulted for hematuria, which is resolving now No additional recommendations, same as below - Continue care as per primary team - No acute intervention needed - Hematuria can be related to self cath and UTI as well as to previous radiation. - Continue current treatment, follow ID recommendations - Manual irrigation of the bladder may help to get rid of bladder clots/debris seen in the bladder on Sono. Do it BID - Pt to see his urologist after d/c for further management, may need cysto as outpt. 07/27/18 73 y.o male with metastatic CaP with gross hematuria 24F 3-way palacios in place; clots irrigated and CBI started Hold SQ Heparin; will order SCD's instead Will need cystoscopy at later date and may need HBO as outpt to help RX Radiation cystitis Will follow. 07/28 73 y.o male with metastatic CaP with gross hematuria 24F 3-way palacios in place; urine now clear Cysto as outpt. 07/29 73 y.o male with metastatic CaP with gross hematuria Will need cysto with fulguration of bleeding in OR today Continue NPO. 07/30 73 y.o male with metastatic CaP with gross hematuria Continue supportive measures/transfusion/[facility] CBI To d/w Radiation oncology tomorrow. D/W Dr. Gant 07/31 07/30 73 y.o male with metastatic CaP with gross hematuria Continue supportive measures/transfusion/Amicar CBI Possible XRT therapy for control of bleeding.
[2018-07-31 10:02] LABS: Eosinophils 2 % (0-4); Lymphocytes 14 % (9-44); Monocytes 14 % (0-8); Myelocytes 1 % (0-0)
[2018-07-31 10:03] LABS: Platelet Estimate Normal (Normal); Platelet Morphology Normal (Normal); RBC Morphology Normal (Normal)
[2018-07-31] MEDS: Calcium Carbonate 500 MG Tablet PO SCH ×2 (10:04→20:39)
[2018-07-31] MEDS: buPROPion 150 MG XL 24 HR Tablet PO SCH (10:05)
[2018-07-31] MEDS: oxyCODONE 10 MG Controlled Release Tablet PO SCH ×2 (10:05→17:45)
[2018-07-31] MEDS: Gabapentin 300 MG Capsule PO SCH ×2 (10:06→20:39)
[2018-07-31] MEDS: Tolterodine Tartrate LA 4 MG Capsule PO SCH (10:06)
[2018-07-31] MEDS: Folic Acid 1 MG Tablet PO SCH (10:06)
--- NOTE | 2018-07-31 12:03 | P.PNNP ---
Subjective Interval history: Renal function is stable. Notes were reviewed. Physical Exam Vital signs: Vital Signs 07/30/18 12:01 07/30/18 12:04 07/30/18 12:46 Temperature 97.8 F 97.8 F 98 F Pulse Rate 68 67 69 Respiratory Rate 17 17 17 Blood Pressure 100/54 L 100/54 L 94/56 L Pulse Oximetry 97 100 97 07/30/18 14:00 07/30/18 14:17 07/30/18 16:00 Temperature 98.7 F 97.6 F Pulse Rate 69 74 Respiratory Rate 17 20 Blood Pressure 95/53 L 96/51 L Pulse Oximetry 97 100 07/30/18 19:42 07/30/18 20:13 07/30/18 23:12 Temperature 98.8 F 100.1 F H Pulse Rate 90 92 H 89 Respiratory Rate 16 16 Blood Pressure 114/64 114/58 L Pulse Oximetry 97 96 07/31/18 00:02 07/31/18 03:20 07/31/18 04:00 Temperature 102.8 F H Pulse Rate 90 104 H 100 H Respiratory Rate 16 Blood Pressure 108/63 Pulse Oximetry 93 L 07/31/18 06:36 07/31/18 08:09 07/31/18 08:33 Temperature 98.8 F 99.1 F Pulse Rate 76 70 Respiratory Rate 16 Blood Pressure 108/54 L Pulse Oximetry 98 07/31/18 11:32 Temperature 98.8 F Pulse Rate 90 Respiratory Rate 18 Blood Pressure 103/62 Pulse Oximetry 98 Intake & Output 07/30/18 07/31/18 07/31/18 18:59 06:59 18:59 Intake Total 1000 / 1000 1340 / 1340 Balance 1000 / 1000 1340 / 1340 Weight 84.6 kg Intake: IV 520 / 520 100 / 100 Levaquin 500 mg Premix Inj 500 100 / 100 mg In 100 ml @ 100 mls/hr IV. SIG Q24H [facility] Rx#:[id number] Vancomycin Inj 2,000 MG In NS 520 / 520 Inj 500 ML @ 250 mls/hr IV.SIG ONCE ONE Rx#:[id number] Oral 480 / 480 1240 / 1240 Intake (Blood Product) Amt 0 / 0 Rbc As-3 Leukoreduced Unit 0 / 0 [id number] Rbc As-3 Leukoreduced Unit 0 / 0 [id number] Other: Bladder Irrigation Fluid - Amount Instilled Indwelling Urethral Catheter 15,000 3,000 Bladder Irrigation Fluid - Amount Drained Indwelling Urethral Catheter 17,500 3,775 Date of Last Bowel Movement 07/28/18 Narrative: GENERAL: Alert, oriented 3, NAD. SKIN: Warm and dry. HEAD: Normocephalic. EYES: No scleral icterus. No injection or drainage. NECK: Supple, trachea midline. No JVD or lymphadenopathy. CARDIOVASCULAR: Regular rate and rhythm without murmurs, gallops, or rubs. RESPIRATORY: Breath sounds equal bilaterally. No accessory muscle use. GASTROINTESTINAL: Abdomen soft, tender to palpation in the lower abdomen, nondistended. MUSCULOSKELETAL: No cyanosis, or edema. Tender to palpation over lower extremities. : Engel cath bag has light pink fluid. BACK: Nontender without obvious deformity. No CVA tenderness. - Urinary Catheter Management Indwelling Urethral Catheter Cath placed during this visit: yes Reason for continuing: Other continuation reason Insertion date: 07/29/18 Insertion time: 11:00 Assessment and Plan - Assessment (1) Acute on chronic kidney failure Code(s): N17.9 - Acute kidney failure, unspecified; N18.9 - Chronic kidney disease, unspecified Status: Acute Plan: patient's renal function is stable, monitor. Avoid nephrotoxic agents. Monitor urine output. (2) Gross hematuria Code(s): R31.0 - Gross hematuria Status: Acute Plan: Urology following. (3) Prostate cancer metastatic to bone Code(s): C61 - Malignant neoplasm of prostate; C79.51 - Secondary malignant neoplasm of bone Status: Acute (4) Acute UTI Code(s): N39.0 - Urinary tract infection, site not specified Status: Acute Plan: Intermittently fever. Continue antibiotic.
[2018-07-31] MEDS: Docusate Sodium 100 MG Capsule PO SCH ×3 (12:13→19:58)
[2018-07-31] MEDS ORDERED: Vancomycin Inj 1,500 MG in Sodium Chlor 0.9% Inj 500 ML IV.SIG ONE (13:00)
[2018-07-31] MEDS: HYDROmorphone PF Inj 2 MG/ML Vial IV.PUSH PRN (13:08)
[2018-07-31] MEDS: Levofloxacin 500 mg Premix Inj 500 MG/100 ML PIGGYBACK IV.SIG SCH (14:00)
--- NOTE | 2018-07-31 16:40 | P.PN ---
Subjective Interval history: Follow up for persistent hematuria, metastatic prostate cancer. Patient is currently doing well. Denies any chest pain, shortness of breath. He had fever at night with T-max 102.8F. Continues to receive CBI, urine is non- bloody, cindy color. Physical Exam Vital signs: Vital Signs 07/30/18 19:42 07/30/18 20:13 07/30/18 23:12 Temperature 98.8 F 100.1 F H Pulse Rate 90 92 H 89 Respiratory Rate 16 16 Blood Pressure 114/64 114/58 L Pulse Oximetry 97 96 07/31/18 00:02 07/31/18 03:20 07/31/18 04:00 Temperature 102.8 F H Pulse Rate 90 104 H 100 H Respiratory Rate 16 Blood Pressure 108/63 Pulse Oximetry 93 L 07/31/18 06:36 07/31/18 08:09 07/31/18 08:33 Temperature 98.8 F 99.1 F Pulse Rate 76 70 Respiratory Rate 16 Blood Pressure 108/54 L Pulse Oximetry 98 07/31/18 11:32 07/31/18 12:51 07/31/18 14:16 Temperature 98.8 F 98.7 F Pulse Rate 90 86 89 Respiratory Rate 18 24 Blood Pressure 103/62 119/69 Pulse Oximetry 98 98 07/31/18 16:09 Temperature 98.7 F Pulse Rate 76 Respiratory Rate 16 Blood Pressure 116/67 Pulse Oximetry 98 Intake & Output 07/30/18 07/31/18 07/31/18 18:59 06:59 18:59 Intake Total 1000 / 1000 1340 / 1340 Output Total 5600 / 5600 Balance 1000 / 1000 1340 / 1340 -5600 / -5600 Weight 84.6 kg Intake: IV 520 / 520 100 / 100 Levaquin 500 mg Premix Inj 500 100 / 100 mg In 100 ml @ 100 mls/hr IV. SIG Q24H [facility] Rx#:[id number] Vancomycin Inj 2,000 MG In NS 520 / 520 Inj 500 ML @ 250 mls/hr IV.SIG ONCE ONE Rx#:[id number] Oral 480 / 480 1240 / 1240 Intake (Blood Product) Amt 0 / 0 Rbc As-3 Leukoreduced Unit 0 / 0 [id number] Rbc As-3 Leukoreduced Unit 0 / 0 [id number] Output: Urine Amount (Catheter) 5600 / 5600 Indwelling Urethral Catheter 5600 / 5600 Other: Bladder Irrigation Fluid - Amount Instilled Indwelling Urethral Catheter 15,000 3,000 Bladder Irrigation Fluid - Amount Drained Indwelling Urethral Catheter 17,500 3,775 Date of Last Bowel Movement 07/28/18 Narrative: GENERAL: Alert, oriented 3, NAD. SKIN: Warm and dry. HEAD: Normocephalic. EYES: No scleral icterus. No injection or drainage. NECK: Supple, trachea midline. No JVD or lymphadenopathy. CARDIOVASCULAR: Regular rate and rhythm without murmurs, gallops, or rubs. RESPIRATORY: Breath sounds equal bilaterally. No accessory muscle use. GASTROINTESTINAL: Abdomen soft, tender to palpation in the lower abdomen, nondistended. MUSCULOSKELETAL: No cyanosis, or edema. Tender to palpation over lower extremities. : Engel cath bag has light pink fluid. BACK: Nontender without obvious deformity. No CVA tenderness. - Urinary Catheter Management Indwelling Urethral Catheter Cath placed during this visit: yes Reason for continuing: Gross Hematuria Insertion date: 07/29/18 Insertion time: 11:00 Results - Labs CBC & Chem 7: 07/31/18 06:43 07/30/18 04:10 Laboratory Results - last 24 hr 07/31/18 07/31/18 06:43 06:43 WBC 9.7 RBC 2.57 L Hgb 8.1 L Hct 23.3 L MCV 91.0 MCH 31.6 MCHC 34.7 RDW 16.2 Plt Count 283 MPV 6.6 L Prelim Diff (Auto) Slide review pending Neut % (Auto) 75.7 H Lymph % (Auto) 9.5 [place] % (Auto) 12.8 H Eos % (Auto) 1.5 Baso % (Auto) 0.5 Neut # (Auto) 7.3 Lymph # (Auto) 0.9 L [place] # (Auto) 1.2 H Eos # (Auto) 0.1 Baso # (Auto) 0.0 WBC Differential Manual diff final Seg Neuts % (Manual) 66 Band Neuts % (Manual) 3 Lymphocytes % (Manual) 14 Monocytes % (Manual) 14 H Eosinophils % (Manual) 2 Myelocytes % (Man) 1 H Abs Neuts (Manual) 6.8 Differential Comment . Platelet Estimate Normal Platelet Morphology Normal RBC Morphology Normal Phosphorus 2.4 L Random Vancomycin 15.0 Microbiology 07/30/18 11:55 Catheterized Urine Urine Culture - Preliminary No growth in 24 hours 07/30/18 07:50 Blood - Peripheral Aerobic Blood Culture - Preliminary No growth in 1 day 07/30/18 07:50 Blood - Peripheral Anaerobic Blood Culture - Preliminary No growth in 1 day 07/30/18 07:54 Blood - Peripheral Aerobic Blood Culture - Preliminary No growth in 1 day 07/30/18 07:54 Blood - Peripheral Anaerobic Blood Culture - Preliminary No growth in 1 day 07/26/18 19:31 Blood - Peripheral Aerobic Blood Culture - Final No growth in 5 days 07/26/18 19:31 Blood - Peripheral Anaerobic Blood Culture - Final QNS - See aerobic report. 07/26/18 19:25 Blood - Peripheral Aerobic Blood Culture - Final No growth in 5 days 07/26/18 19:25 Blood - Peripheral Anaerobic Blood Culture - Final No growth in 5 days Assessment and Plan - Assessment (1) Acute UTI Code(s): N39.0 - Urinary tract infection, site not specified Status: Acute (2) Prostate cancer metastatic to bone Code(s): C61 - Malignant neoplasm of prostate; C79.51 - Secondary malignant neoplasm of bone Status: Acute - Plan Mr. Queen is a pleasant 73-year-old male with a history of metastatic prostate carcinoma who was admitted to the hospital due to fever, hematuria and pelvic pain. Infectious disease as well as oncology and urology have been following patient. Patient is currently on levofloxacin and Zosyn for suspected prostatitis. Acute prostatitis -Continue levofloxacin 500 mg Q48hrs. Oncology started patient on cefepime and vancomycin. -ID is following. Urine culture showed staph epi. Persistent hematuria Bilateral hydronephrosis on ultrasound left greater than right -We consulted Dr. Miranda (Urology) yesterday who exchanged the catheter. Urine is not bloody anymore. -We greatly appreciate Dr. Miranda's help. -Patient started having significant hematuria again on 07/29/2018. -Patient underwent surgical intervention on 07/29/2018. -Radiation oncology evaluated patient today 07/31/2018. Acute Urinary tract blood loss -Hematuria is currently under control. Hemoglobin 8.1 today. Metastatic prostate carcinoma -Oncology is following. Patient is has had good response to leuprolide and Enzalutamide (Xtandi). -Continue oxycodone for pain control. Will increase long-acting OxyContin from 10-->20 mg twice daily. Hypocalcemia -Mg was 2.1. Calcium went down to 7.3. Will give 1g Calcium Gluconate. Discharge Plan: Hopefully home with home health per PT recs. Full code. Ambulation.
--- NOTE | 2018-07-31 17:48 | P.PNID ---
Subjective Remarks: cont to have intermittent fevers up to 102.8 every night XRT is planned feels tired having formed stools c/o pain in perineal area urine is of cindy colour GFR is worsening, down to 28 Antibiotics: zosyn levaquin Past Medical History: prostate ca Allergies/Adverse Reactions: Allergies morphine Allergy (Severe, Verified 07/22/18 11:48) MORPHINE ALLERGY ADDED 12/19/07 @1500 - N/V Objective Vital Signs 07/30/18 19:42 07/30/18 20:13 07/30/18 23:12 Temperature 98.8 F 100.1 F H Pulse Rate 90 92 H 89 Respiratory Rate 16 16 Blood Pressure 114/64 114/58 L Pulse Oximetry 97 96 07/31/18 00:02 07/31/18 03:20 07/31/18 04:00 Temperature 102.8 F H Pulse Rate 90 104 H 100 H Respiratory Rate 16 Blood Pressure 108/63 Pulse Oximetry 93 L 07/31/18 06:36 07/31/18 08:09 07/31/18 08:33 Temperature 98.8 F 99.1 F Pulse Rate 76 70 Respiratory Rate 16 Blood Pressure 108/54 L Pulse Oximetry 98 07/31/18 11:32 07/31/18 12:51 07/31/18 14:16 Temperature 98.8 F 98.7 F Pulse Rate 90 86 89 Respiratory Rate 18 24 Blood Pressure 103/62 119/69 Pulse Oximetry 98 98 07/31/18 16:09 Temperature 98.7 F Pulse Rate 76 Respiratory Rate 16 Blood Pressure 116/67 Pulse Oximetry 98 Intake & Output 07/30/18 07/31/18 07/31/18 18:59 06:59 18:59 Intake Total 1000 / 1000 1340 / 1340 Output Total 5600 / 5600 Balance 1000 / 1000 1340 / 1340 -5600 / -5600 Weight 84.6 kg Intake: IV 520 / 520 100 / 100 Levaquin 500 mg Premix Inj 500 100 / 100 mg In 100 ml @ 100 mls/hr IV. SIG Q24H [facility] Rx#:[id number] Vancomycin Inj 2,000 MG In NS 520 / 520 Inj 500 ML @ 250 mls/hr IV.SIG ONCE ONE Rx#:[id number] Oral 480 / 480 1240 / 1240 Intake (Blood Product) Amt 0 / 0 Rbc As-3 Leukoreduced Unit 0 / 0 [id number] Rbc As-3 Leukoreduced Unit 0 / 0 [id number] Output: Urine Amount (Catheter) 5600 / 5600 Indwelling Urethral Catheter 5600 / 5600 Other: Bladder Irrigation Fluid - Amount Instilled Indwelling Urethral Catheter 15,000 3,000 Bladder Irrigation Fluid - Amount Drained Indwelling Urethral Catheter 17,500 3,775 Date of Last Bowel Movement 07/28/18 07/30/18 11:55 Catheterized Urine Urine Culture - Preliminary No growth in 24 hours 07/30/18 07:50 Blood - Peripheral Aerobic Blood Culture - Preliminary No growth in 1 day 07/30/18 07:50 Blood - Peripheral Anaerobic Blood Culture - Preliminary No growth in 1 day 07/30/18 07:54 Blood - Peripheral Aerobic Blood Culture - Preliminary No growth in 1 day 07/30/18 07:54 Blood - Peripheral Anaerobic Blood Culture - Preliminary No growth in 1 day 07/26/18 19:31 Blood - Peripheral Aerobic Blood Culture - Final No growth in 5 days 07/26/18 19:31 Blood - Peripheral Anaerobic Blood Culture - Final QNS - See aerobic report. 07/26/18 19:25 Blood - Peripheral Aerobic Blood Culture - Final No growth in 5 days 07/26/18 19:25 Blood - Peripheral Anaerobic Blood Culture - Final No growth in 5 days Lab - Hematology Results 07/30/18 07/31/18 04:10 06:43 WBC 7.0 9.7 RBC 2.12 L 2.57 L Hgb 6.5 L* 8.1 L Hct 18.9 L* 23.3 L MCV 89.5 D 91.0 MCH 30.9 31.6 MCHC 34.5 34.7 RDW 16.6 16.2 Plt Count 298 283 MPV 6.6 L 6.6 L Prelim Diff (Auto) Slide review pending Slide review pending Neut % (Auto) 70.9 H 75.7 H Lymph % (Auto) 12.1 9.5 Boyd % (Auto) 14.1 H 12.8 H Eos % (Auto) 2.5 1.5 Baso % (Auto) 0.4 0.5 Neut # (Auto) 5.0 7.3 Lymph # (Auto) 0.8 L 0.9 L Boyd # (Auto) 1.0 H 1.2 H Eos # (Auto) 0.2 0.1 Baso # (Auto) 0.0 0.0 WBC Differential Manual diff final Manual diff final Seg Neuts % (Manual) 80 H 66 Band Neuts % (Manual) 3 Lymphocytes % (Manual) 10 14 Monocytes % (Manual) 6 14 H Eosinophils % (Manual) 3 2 Myelocytes % (Man) 1 H Promyelocytes % (Man) 1 H Abs Neuts (Manual) 5.7 6.8 Differential Comment . . Platelet Estimate Normal Normal Platelet Morphology Clumped H Normal RBC Morphology Normal Lab - Chemistry Results 07/30/18 07/31/18 04:10 06:43 Sodium 141 Potassium 3.7 Chloride 108 H Carbon Dioxide 25.8 Anion Gap 7 BUN 23 H Creatinine 2.30 H Estimated GFR 28 L Random Glucose 102 Calcium 6.3 L* Prot Corrected Calcium 7.3 L* Phosphorus 2.4 L Total Bilirubin 0.5 AST 15 ALT Less than 6 L Alkaline Phosphatase 59 Total Protein 5.0 L D Albumin 1.5 L Imaging: ITS Impressions Chest X-Ray 07/22/18 11:00 CONCLUSION: The lungs are grossly clear. Sclerotic metastatic disease. Abdomen/Bladder Ultrasound 07/23/18 00:00 CONCLUSION: 1. Significant debris within the bladder likely blood. Mild bilateral hydronephrosis left greater than right. Abdomen/Pelvis CT 07/24/18 00:00 CONCLUSION: 1. Abnormal bladder with increased density consistent with blood products and/ or tumor. A Palacios catheter is present with a small amount of air. 2. New mild to moderate bilateral hydronephrosis. Small bilateral pleural effusions right greater than left. 3. Extensive sclerotic metastatic disease with interval progression. Physical Exam: GENERAL: NAD chronically ill appearing SKIN: Warm and dry. No rash HEAD: Atraumatic. Normocephalic. EYES: Pupils equal and round. No scleral icterus. No injection or drainage. ENT: No nasal bleeding or discharge. Mucous membranes pink and moist. NECK: Trachea midline. No JVD. CARDIOVASCULAR: Regular rate and rhythm. RESPIRATORY: No accessory muscle use. Clear to auscultation. Breath sounds equal bilaterally. GASTROINTESTINAL: Abdomen soft, tender to palpation in lower quadrants w/o guarding or rebound + minimally distended. Hepatic and splenic margins not palpable. : palacios in place with cindy urine MUSCULOSKELETAL: Extremities without clubbing, cyanosis, + 2+ soft pitting edema. No obvious deformities. NEUROLOGICAL: Awake and alert. No obvious cranial nerve deficits. Motor grossly within normal limits. Five out of 5 muscle strength in the arms and legs. Normal speech. PSYCHIATRIC: Appropriate mood and affect; insight and judgment normal. Assessment and Plan - Plan Metastatic prostate cancer FUO (6 weeks) Hematuria Probably UTI - Staph epi not a typical pathogen GENI - worse Persistent fever - ? new UTI cont levaquin dc cefepime start meropenem, renally adjusted start micafungin FU blood and urine clx procalcitonin dc vancomycin dw pt dw Shira Miranda , [facility]
[2018-07-31] MEDS ORDERED: Calcium Gluconate Inj 1 GM in Dextrose 5% in Water Inj 100 ML IV.SIG ONE ×4 (18:00→21:00)
[2018-07-31] MEDS: Latanoprost 0.005% Opth Drops 2.5 ML Bottle EACH EYE SCH (20:42)
[2018-07-31] MEDS: diazePAM 5 MG Tablet PO PRN (21:49)
[2018-08-01] MEDS: oxyCODONE 10 MG Controlled Release Tablet PO SCH ×3 (06:05→23:37)
[2018-08-01 06:56] LABS: Vancomycin,Random 23.2 Comment
[2018-08-01] MEDS: Sodium Chloride 0.9% Irr Bag 3,000 ML, Aminocaproic Acid Inj 3,000 MG IRRIGATION PRN ×4 (07:21→21:45)
--- NOTE | 2018-08-01 08:12 | P.PNONC ---
Subjective Interval history: Patient seen and examined, vital signs, labs, medications and overnight events reviewed. Manager Sap notes including urology, nephrology and infectious diseases were reviewed. Overnight ; The patient reports sleeping comfortably. Per overnight nurse and yesterday' s day nurse there was no significant hematuria. The patient tells me he was able to ambulate in the hallways with assistance yesterday and felt overall well. The patient was evaluated by radiation oncology yesterday to discuss palliative radiation for management of hematuria. Objective Vital Signs/Intake & Output: Vital Signs 07/31/18 08:09 07/31/18 08:33 07/31/18 11:32 Temperature 99.1 F 98.8 F Pulse Rate 76 70 90 Respiratory Rate 16 18 Blood Pressure 108/54 L 103/62 Pulse Oximetry 98 98 07/31/18 12:51 07/31/18 14:16 07/31/18 16:09 Temperature 98.7 F 98.7 F Pulse Rate 86 89 76 Respiratory Rate 24 16 Blood Pressure 119/69 116/67 Pulse Oximetry 98 98 07/31/18 19:00 07/31/18 20:00 07/31/18 20:05 Temperature 99.6 F Pulse Rate 82 88 91 H Respiratory Rate 16 Blood Pressure 113/57 L Pulse Oximetry 93 L 07/31/18 20:30 07/31/18 23:16 08/01/18 00:04 Temperature 99.3 F Pulse Rate 86 84 Respiratory Rate 16 Blood Pressure 107/53 L Pulse Oximetry 94 L 08/01/18 03:21 08/01/18 04:00 Temperature 99.9 F H Pulse Rate 85 83 Respiratory Rate 18 Blood Pressure 119/57 L Pulse Oximetry 95 Intake & Output 07/31/18 08/01/18 08/01/18 18:59 06:59 18:59 Intake Total 2160 / 2160 Output Total 5600 / 5600 2800 / 2800 Balance -5600 / -5600 -640 / -640 Weight 84.3 kg Intake: IV 920 / 920 Calcium Gluconate Inj 1 GM In 110 / 110 D5W Inj 100 ML @ 110 mls/hr IV. SIG ONCE ONE Rx#:[id number] Maxipime Inj 1,000 MG In NS Inj 100 / 100 100 ML @ 200 mls/hr IV.SIG Q24HR [facility] Rx#:[id number] Levaquin 500 mg Premix Inj 500 100 / 100 mg In 100 ml @ 100 mls/hr IV. SIG Q48H [facility] Rx#:[id number] Merrem Inj 1,000 MG In NS Inj 110 / 110 100 ML @ 200 mls/hr IV.SIG Q12H [facility] Rx#:[id number] Vancomycin Inj 1,500 MG In NS 500 / 500 Inj 500 ML @ 250 mls/hr IV.SIG ONCE ONE Rx#:[id number] Oral 1240 / 1240 Output: Urine Amount (Catheter) 5600 / 5600 2800 / 2800 Indwelling Urethral Catheter 5600 / 5600 2800 / 2800 Other: Bladder Irrigation Fluid - Amount Instilled Indwelling Urethral Catheter 3,000 Bladder Irrigation Fluid - Amount Drained Indwelling Urethral Catheter 4,025 Date of Last Bowel Movement 07/30/18 Result Diagrams: 07/31/18 06:43 08/01/18 06:04 Laboratory Results: Laboratory Results - last 24 hr 07/31/18 08/01/18 06:43 06:04 WBC Differential Manual diff final Seg Neuts % (Manual) 66 Band Neuts % (Manual) 3 Lymphocytes % (Manual) 14 Monocytes % (Manual) 14 H Eosinophils % (Manual) 2 Myelocytes % (Man) 1 H Abs Neuts (Manual) 6.8 Platelet Estimate Normal Platelet Morphology Normal RBC Morphology Normal Creatinine 2.30 H Estimated GFR 28 L Random Vancomycin 23.2 Culture Results: Microbiology 07/30/18 11:55 Urine Culture - Preliminary Catheterized Urine No growth in 24 hours 07/30/18 07:50 Aerobic Blood Culture - Preliminary Blood - Peripheral No growth in 1 day Anaerobic Blood Culture - Preliminary No growth in 1 day 07/30/18 07:54 Aerobic Blood Culture - Preliminary Blood - Peripheral No growth in 1 day Anaerobic Blood Culture - Preliminary No growth in 1 day 07/26/18 19:31 Aerobic Blood Culture - Final Blood - Peripheral No growth in 5 days Anaerobic Blood Culture - Final QNS - See aerobic report. 07/26/18 19:25 Aerobic Blood Culture - Final Blood - Peripheral No growth in 5 days Anaerobic Blood Culture - Final No growth in 5 days Medications: Active Medications Generic Name Dose Route Start Last Admin Trade Name Freq PRN Reason Stop Dose Admin Acetaminophen 650 mg 07/22/18 13:55 07/31/18 03:33 Tylenol PO 650 mg Q4H PRN Administration fever Bupropion HCl 150 mg 07/22/18 14:00 07/31/18 10:05 Wellbutrin Xl PO 150 mg DAILY [facility] Administration Sodium Chloride 3,000 ml/ 0 ml 07/29/18 23:03 08/01/18 07:21 Aminocaproic Acid 3,000 mg IRRIGATION 3,000 irrig.soln Q24H PRN Administration TO KEEP URINE CLEAR Diazepam 5 mg 07/22/18 13:57 07/31/18 21:49 Valium PO 5 mg DAILY PRN Administration Anxiety Docusate Sodium 100 mg 07/25/18 15:45 07/31/18 19:58 Colace PO 100 mg TID [facility] Administration Folic Acid 1 mg 07/24/18 12:00 07/31/18 10:06 Folic Acid PO 1 mg DAILY [facility] Administration Gabapentin 300 mg 07/23/18 21:00 07/31/18 20:39 Neurontin PO 300 mg BID [facility] Administration Hydromorphone HCl 0.5 mg 07/26/18 19:30 07/31/18 13:08 Dilaudid Pf Inj IV.PUSH 0.5 mg Q4H PRN Administration BREAKTHROUGH PAIN Levofloxacin/Dextrose 500 mg in 100 mls @ 100 mls/hr 07/31/18 16:00 07/31/18 20:02 Levaquin 500 Mg Premix Inj IV.SIG Infused Q48H [facility] Infusion Meropenem 1,000 mg/ Sodium 100 mls @ 200 mls/hr 07/31/18 20:00 07/31/18 21:50 Chloride IV.SIG Infused Q12H [facility] Infusion Latanoprost 1 drop 07/22/18 21:00 07/31/18 20:42 Xalatan 0.005% Opth Drops EACH EYE 1 drop HS [facility] Administration Oxycodone HCl 5 mg 07/22/18 14:46 08/01/18 03:24 Roxicodone PO 5 mg Q4H PRN Administration breakthrough pain Oxycodone HCl 20 mg 07/31/18 17:00 08/01/18 06:05 Oxycontin Cr PO 20 mg Q12H [facility] Administration Tenofovir Disoproxil Fumarate 300 mg 07/24/18 09:00 07/30/18 08:28 Viread PO 300 mg EVERY OTHER DAY [facility] Administration Tolterodine Tartrate 4 mg 07/24/18 13:00 07/31/18 10:06 Detrol La PO 4 mg DAILY [facility] Administration Vitamin D 2,000 unit 07/25/18 09:00 07/31/18 10:05 Vitamin D3 PO 2,000 unit DAILY [facility] Administration Objective Remarks: GENERAL: Elderly male, laying in bed, appears to be comfortable, awake and alert and oriented well-nourished, well-developed patient. SKIN: Pale, warm and dry. HEAD: Normocephalic. EYES: No scleral icterus. No injection or drainage. Conjunctivae are pale. NECK: Supple, trachea midline. No JVD or lymphadenopathy. LYMPHATIC: No adenopathy. CARDIOVASCULAR: Regular rate and rhythm without murmurs. RESPIRATORY: Breath sounds equal bilaterally. No accessory muscle use. GASTROINTESTINAL: Abdomen soft, tenderness in the left lower quadrant, nondistended. EXTREMITIES: No cyanosis, or edema. MUSCULOSKELETAL: Decreased muscle tone. NEUROLOGICAL: No obvious focal deficit. Awake, alert, and oriented x3. PSYCHIATRIC: Appropriate mood and affect; insight and judgment normal. Engel catheter reviewed, there appears to be clear straw-colored urine without sediment or blood. Continuous bladder irrigation at this time is turned off. Assessment/Plan - Plan Mr. Queen Is a 73-year-old man with a diagnosis of metastatic prostate carcinoma , he has had an excellent response to combination therapy consisting of leuprolide and Xtandi. His PSA levels have been less than 0.1 ng/dL over the past several months. He has extensive metastatic disease burden involving his axial skeleton especially his pelvis. Most recent PET CT scan revealed most of his previously active metastatic disease to be dormant, he however had intense hypermetabolic activity localized to the prostate and to the bladder. In late June he underwent cystoscopy for workup of hematuria with his former urologist Dr. Parmar, no obvious cause for hematuria was identified. He is now in the hospital with fevers, hematuria and pelvic pain. Clinically he has suspected prostatitis and is on broad-spectrum antibiotics with Zosyn and levofloxacin. Urine cultures and blood cultures are negative thus far other than forced staph epidermidis. CT scan of the abdomen/pelvis revealed no obvious cause for the hematuria. Recommendations: 1. Febrile illness: He has been afebrile over the past 24 hours, now on meropenem and levofloxacin with micafungin. Appreciate infectious disease input. Cefepime and vancomycin have now been discontinued. 2. Hematuria: No significant bleeding over the past 24+ hours, continues to have continuous bladder irrigation Engel catheter in place, bladder irrigation at this time is turned off. Await recommendations from radiation oncology regarding possibility of palliative radiation to control bleeding from the prostate. 3. Pain control, continue long and short acting opioids. Patient reports his pain is minimal so long as he is not passing large clots through his Engel catheter. And as long as his Engel catheter is not obstructed. 4. Metastatic prostate carcinoma, PSA less than 0.1, total testosterone 9.9, free testosterone 0.2. 5. Anemia, related to large volume hematuria, continue red cell transfusions. Over the past 24 hours his hemoglobin has remained stable. Continue ongoing care.
--- NOTE | 2018-08-01 08:44 | P.PN ---
Subjective Interval history: Follow up for persistent hematuria, metastatic prostate cancer. Patient is currently resting well. Denies any chest pain, shortness of breath, fever or chills. He had low-grade below 100 temperature. No further hematuria. Engel catheter bag has normal color urine. Physical Exam Vital signs: Vital Signs 07/31/18 11:32 07/31/18 12:51 07/31/18 14:16 Temperature 98.8 F 98.7 F Pulse Rate 90 86 89 Respiratory Rate 18 24 Blood Pressure 103/62 119/69 Pulse Oximetry 98 98 07/31/18 16:09 07/31/18 19:00 07/31/18 20:00 Temperature 98.7 F 99.6 F Pulse Rate 76 82 88 Respiratory Rate 16 16 Blood Pressure 116/67 113/57 L Pulse Oximetry 98 93 L 07/31/18 20:05 07/31/18 20:30 07/31/18 23:16 Temperature 99.3 F Pulse Rate 91 H 86 Respiratory Rate 16 Blood Pressure 107/53 L Pulse Oximetry 94 L 08/01/18 00:04 08/01/18 03:21 08/01/18 04:00 Temperature 99.9 F H Pulse Rate 84 85 83 Respiratory Rate 18 Blood Pressure 119/57 L Pulse Oximetry 95 Intake & Output 07/31/18 08/01/18 08/01/18 18:59 06:59 18:59 Intake Total 2160 / 2160 Output Total 5600 / 5600 2800 / 2800 Balance -5600 / -5600 -640 / -640 Weight 84.3 kg Intake: IV 920 / 920 Calcium Gluconate Inj 1 GM In 110 / 110 D5W Inj 100 ML @ 110 mls/hr IV. SIG ONCE ONE Rx#:[id number] Maxipime Inj 1,000 MG In NS Inj 100 / 100 100 ML @ 200 mls/hr IV.SIG Q24HR [facility] Rx#:[id number] Levaquin 500 mg Premix Inj 500 100 / 100 mg In 100 ml @ 100 mls/hr IV. SIG Q48H [facility] Rx#:[id number] Merrem Inj 1,000 MG In NS Inj 110 / 110 100 ML @ 200 mls/hr IV.SIG Q12H [facility] Rx#:[id number] Vancomycin Inj 1,500 MG In NS 500 / 500 Inj 500 ML @ 250 mls/hr IV.SIG ONCE ONE Rx#:[id number] Oral 1240 / 1240 Output: Urine Amount (Catheter) 5600 / 5600 2800 / 2800 Indwelling Urethral Catheter 5600 / 5600 2800 / 2800 Other: Bladder Irrigation Fluid - Amount Instilled Indwelling Urethral Catheter 3,000 Bladder Irrigation Fluid - Amount Drained Indwelling Urethral Catheter 4,025 Date of Last Bowel Movement 07/30/18 Narrative: GENERAL: Alert, oriented 3, NAD. SKIN: Warm and dry. HEAD: Normocephalic. EYES: No scleral icterus. No injection or drainage. NECK: Supple, trachea midline. No JVD or lymphadenopathy. CARDIOVASCULAR: Regular rate and rhythm without murmurs, gallops, or rubs. RESPIRATORY: Breath sounds equal bilaterally. No accessory muscle use. GASTROINTESTINAL: Abdomen soft, tender to palpation in the lower abdomen, nondistended. MUSCULOSKELETAL: No cyanosis, or edema. Tender to palpation over lower extremities. : Engel cath bag has normal color urine BACK: Nontender without obvious deformity. No CVA tenderness. - Urinary Catheter Management Indwelling Urethral Catheter Cath placed during this visit: yes Reason for continuing: Gross Hematuria Insertion date: 07/29/18 Insertion time: 11:00 Results - Labs CBC & Chem 7: 07/31/18 06:43 08/01/18 06:04 Laboratory Results - last 24 hr 07/30/18 07/31/18 08/01/18 06:49 06:43 06:04 WBC Differential Manual diff final Seg Neuts % (Manual) 66 Band Neuts % (Manual) 3 Lymphocytes % (Manual) 14 Monocytes % (Manual) 14 H Eosinophils % (Manual) 2 Myelocytes % (Man) 1 H Abs Neuts (Manual) 6.8 Platelet Estimate Normal Platelet Morphology Normal RBC Morphology Normal Creatinine 2.30 H Estimated GFR 28 L Random Vancomycin 23.2 MTS Gel Crossmatch See Detail Microbiology 07/30/18 11:55 Catheterized Urine Urine Culture - Preliminary No growth in 24 hours 07/30/18 07:50 Blood - Peripheral Aerobic Blood Culture - Preliminary No growth in 1 day 07/30/18 07:50 Blood - Peripheral Anaerobic Blood Culture - Preliminary No growth in 1 day 07/30/18 07:54 Blood - Peripheral Aerobic Blood Culture - Preliminary No growth in 1 day 07/30/18 07:54 Blood - Peripheral Anaerobic Blood Culture - Preliminary No growth in 1 day 07/26/18 19:31 Blood - Peripheral Aerobic Blood Culture - Final No growth in 5 days 07/26/18 19:31 Blood - Peripheral Anaerobic Blood Culture - Final QNS - See aerobic report. 07/26/18 19:25 Blood - Peripheral Aerobic Blood Culture - Final No growth in 5 days 07/26/18 19:25 Blood - Peripheral Anaerobic Blood Culture - Final No growth in 5 days - Imaging Chest X-Ray 07/22/18 11:00 CONCLUSION: The lungs are grossly clear. Sclerotic metastatic disease. Abdomen/Bladder Ultrasound 07/23/18 00:00 CONCLUSION: 1. Significant debris within the bladder likely blood. Mild bilateral hydronephrosis left greater than right. Abdomen/Pelvis CT 07/24/18 00:00 CONCLUSION: 1. Abnormal bladder with increased density consistent with blood products and/ or tumor. A Engel catheter is present with a small amount of air. 2. New mild to moderate bilateral hydronephrosis. Small bilateral pleural effusions right greater than left. 3. Extensive sclerotic metastatic disease with interval progression. Assessment and Plan - Assessment (1) Acute UTI Code(s): N39.0 - Urinary tract infection, site not specified Status: Acute (2) Prostate cancer metastatic to bone Code(s): C61 - Malignant neoplasm of prostate; C79.51 - Secondary malignant neoplasm of bone Status: Acute - Plan Mr. Queen is a pleasant 73-year-old male with a history of metastatic prostate carcinoma who was admitted to the hospital due to fever, hematuria and pelvic pain. Infectious disease as well as oncology and urology have been following patient. Patient is currently on levofloxacin and Zosyn for suspected prostatitis. Acute prostatitis -Continue levofloxacin 500 mg Q48hrs. Infectious disease added meropenem and micafungin. -Follow blood culture and urine cultures. Persistent hematuria Bilateral hydronephrosis on ultrasound left greater than right -We greatly appreciate Dr. Miranda's help. -Patient underwent surgical intervention on 07/29/2018. -Radiation oncology is planning to do simulation today 08/01/2018. Acute Urinary tract blood loss -Hematuria is currently under control. Hemoglobin 8.1 on 07/31/2018 Metastatic prostate carcinoma -Oncology is following. Patient is has had good response to leuprolide and Enzalutamide (Xtandi). -Continue oxycodone for pain control. Continue long-acting OxyContin 20 mg twice daily. Hypocalcemia -Received 1g Calcium Gluconate. Will check BMP in the morning. Full code. Ambulation.
[2018-08-01] MEDS: Tenofovir 300 MG Tablet PO SCH (09:43)
[2018-08-01] MEDS: buPROPion 150 MG XL 24 HR Tablet PO SCH (09:43)
[2018-08-01] MEDS: Tolterodine Tartrate LA 4 MG Capsule PO SCH (09:43)
[2018-08-01] MEDS: Gabapentin 300 MG Capsule PO SCH ×2 (09:43→21:45)
[2018-08-01] MEDS: Calcium Carbonate 500 MG Tablet PO SCH ×2 (09:44→21:45)
[2018-08-01] MEDS: Folic Acid 1 MG Tablet PO SCH (09:44)
[2018-08-01] MEDS: Docusate Sodium 100 MG Capsule PO SCH ×3 (09:51→20:41)
--- NOTE | 2018-08-01 10:52 | P.PNNP ---
Subjective Interval history: patient has remained stable. Creatinine is about the same. Physical Exam Vital signs: Vital Signs 07/31/18 11:32 07/31/18 12:51 07/31/18 14:16 Temperature 98.8 F 98.7 F Pulse Rate 90 86 89 Respiratory Rate 18 24 Blood Pressure 103/62 119/69 Pulse Oximetry 98 98 07/31/18 16:09 07/31/18 19:00 07/31/18 20:00 Temperature 98.7 F 99.6 F Pulse Rate 76 82 88 Respiratory Rate 16 16 Blood Pressure 116/67 113/57 L Pulse Oximetry 98 93 L 07/31/18 20:05 07/31/18 20:30 07/31/18 23:16 Temperature 99.3 F Pulse Rate 91 H 86 Respiratory Rate 16 Blood Pressure 107/53 L Pulse Oximetry 94 L 08/01/18 00:04 08/01/18 03:21 08/01/18 04:00 Temperature 99.9 F H Pulse Rate 84 85 83 Respiratory Rate 18 Blood Pressure 119/57 L Pulse Oximetry 95 08/01/18 08:53 Temperature 99.8 F H Pulse Rate 106 H Respiratory Rate 16 Blood Pressure 102/51 L Pulse Oximetry 93 L Intake & Output 07/31/18 08/01/18 08/01/18 18:59 06:59 18:59 Intake Total 2160 / 2160 Output Total 5600 / 5600 2800 / 2800 Balance -5600 / -5600 -640 / -640 Weight 84.3 kg Intake: IV 920 / 920 Calcium Gluconate Inj 1 GM In 110 / 110 D5W Inj 100 ML @ 110 mls/hr IV. SIG ONCE ONE Rx#:[id number] Maxipime Inj 1,000 MG In NS Inj 100 / 100 100 ML @ 200 mls/hr IV.SIG Q24HR [facility] Rx#:[id number] Levaquin 500 mg Premix Inj 500 100 / 100 mg In 100 ml @ 100 mls/hr IV. SIG Q48H [facility] Rx#:[id number] Merrem Inj 1,000 MG In NS Inj 110 / 110 100 ML @ 200 mls/hr IV.SIG Q12H [facility] Rx#:[id number] Vancomycin Inj 1,500 MG In NS 500 / 500 Inj 500 ML @ 250 mls/hr IV.SIG ONCE ONE Rx#:[id number] Oral 1240 / 1240 Output: Urine Amount (Catheter) 5600 / 5600 2800 / 2800 Indwelling Urethral Catheter 5600 / 5600 2800 / 2800 Other: Bladder Irrigation Fluid - Amount Instilled Indwelling Urethral Catheter 3,000 Bladder Irrigation Fluid - Amount Drained Indwelling Urethral Catheter 4,025 Date of Last Bowel Movement 07/30/18 Narrative: GENERAL: Alert, oriented 3, NAD. SKIN: Warm and dry. HEAD: Normocephalic. EYES: No scleral icterus. No injection or drainage. NECK: Supple, trachea midline. No JVD or lymphadenopathy. CARDIOVASCULAR: Regular rate and rhythm without murmurs, gallops, or rubs. RESPIRATORY: Breath sounds equal bilaterally. No accessory muscle use. GASTROINTESTINAL: Abdomen soft, tender to palpation in the lower abdomen, nondistended. MUSCULOSKELETAL: No cyanosis, or edema. Tender to palpation over lower extremities. : Engel cath bag has normal color urine BACK: Nontender without obvious deformity. No CVA tenderness. - Urinary Catheter Management Indwelling Urethral Catheter Cath placed during this visit: yes Reason for continuing: Gross Hematuria Insertion date: 07/29/18 Insertion time: 11:00 Assessment and Plan - Assessment (1) Acute on chronic kidney failure Code(s): N17.9 - Acute kidney failure, unspecified; N18.9 - Chronic kidney disease, unspecified Status: Acute Plan: patient's renal function is stable, monitor. Avoid nephrotoxic agents. Monitor urine output. (2) Gross hematuria Code(s): R31.0 - Gross hematuria Status: Acute Plan: Urology following. Hemoglobin is stable. (3) Prostate cancer metastatic to bone Code(s): C61 - Malignant neoplasm of prostate; C79.51 - Secondary malignant neoplasm of bone Status: Acute Plan: Hematology/Oncology note was reviewed. (4) Acute UTI Code(s): N39.0 - Urinary tract infection, site not specified Status: Acute Plan: Possible proctitis. On antibiotic.
--- NOTE | 2018-08-01 12:23 | P.PNURO ---
Subjective Patient symptoms today: Pt seen and examined. Urine is clear. Underwent XRT mapping today. Objective Vital Signs: Vital Signs 07/31/18 12:51 07/31/18 14:16 07/31/18 16:09 Temperature 98.7 F 98.7 F Pulse Rate 86 89 76 Respiratory Rate 24 16 Blood Pressure 119/69 116/67 Pulse Oximetry 98 98 07/31/18 19:00 07/31/18 20:00 07/31/18 20:05 Temperature 99.6 F Pulse Rate 82 88 91 H Respiratory Rate 16 Blood Pressure 113/57 L Pulse Oximetry 93 L 07/31/18 20:30 07/31/18 23:16 08/01/18 00:04 Temperature 99.3 F Pulse Rate 86 84 Respiratory Rate 16 Blood Pressure 107/53 L Pulse Oximetry 94 L 08/01/18 03:21 08/01/18 04:00 08/01/18 08:53 Temperature 99.9 F H 99.8 F H Pulse Rate 85 83 106 H Respiratory Rate 18 16 Blood Pressure 119/57 L 102/51 L Pulse Oximetry 95 93 L Intake & Output 07/31/18 08/01/18 08/01/18 18:59 06:59 18:59 Intake Total 2160 / 2160 100 / 100 Output Total 5600 / 5600 2800 / 2800 Balance -5600 / -5600 -640 / -640 100 / 100 Weight 84.3 kg Intake: IV 920 / 920 100 / 100 Calcium Gluconate Inj 1 GM In 110 / 110 D5W Inj 100 ML @ 110 mls/hr IV. SIG ONCE ONE Rx#:[id number] Maxipime Inj 1,000 MG In NS Inj 100 / 100 100 ML @ 200 mls/hr IV.SIG Q24HR [facility] Rx#:[id number] Levaquin 500 mg Premix Inj 500 100 / 100 mg In 100 ml @ 100 mls/hr IV. SIG Q48H [facility] Rx#:[id number] Merrem Inj 1,000 MG In NS Inj 110 / 110 100 / 100 100 ML @ 200 mls/hr IV.SIG Q12H [facility] Rx#:[id number] Vancomycin Inj 1,500 MG In NS 500 / 500 Inj 500 ML @ 250 mls/hr IV.SIG ONCE ONE Rx#:[id number] Oral 1240 / 1240 Output: Urine Amount (Catheter) 5600 / 5600 2800 / 2800 Indwelling Urethral Catheter 5600 / 5600 2800 / 2800 Other: Bladder Irrigation Fluid - Amount Instilled Indwelling Urethral Catheter 3,000 Bladder Irrigation Fluid - Amount Drained Indwelling Urethral Catheter 4,025 Date of Last Bowel Movement 07/30/18 Result Diagrams: 07/31/18 06:43 08/01/18 06:04 Medications and IVs: Active Medications Generic Name Dose Route Start Last Admin Trade Name Freq PRN Reason Stop Dose Admin Acetaminophen 650 mg 07/22/18 13:55 07/31/18 03:33 Tylenol PO 650 mg Q4H PRN Administration fever Acetaminophen 650 mg 07/29/18 08:29 Tylenol PO Q4H PRN SEE LABEL COMMENTS Bupropion HCl 150 mg 07/22/18 14:00 08/01/18 09:43 Wellbutrin Xl PO 150 mg DAILY [facility] Administration Sodium Chloride 3,000 ml/ 0 ml 07/29/18 23:03 08/01/18 07:21 Aminocaproic Acid 3,000 mg IRRIGATION 3,000 irrig.soln Q24H PRN Administration TO KEEP URINE CLEAR Diazepam 5 mg 07/22/18 13:57 07/31/18 21:49 Valium PO 5 mg DAILY PRN Administration Anxiety Docusate Sodium 100 mg 07/25/18 15:45 08/01/18 09:51 Colace PO 100 mg TID [facility] Administration Folic Acid 1 mg 07/24/18 12:00 08/01/18 09:44 Folic Acid PO 1 mg DAILY [facility] Administration Gabapentin 300 mg 07/23/18 21:00 08/01/18 09:43 Neurontin PO 300 mg BID [facility] Administration Hydromorphone HCl 0.5 mg 07/26/18 19:30 07/31/18 13:08 Dilaudid Pf Inj IV.PUSH 0.5 mg Q4H PRN Administration BREAKTHROUGH PAIN Levofloxacin/Dextrose 500 mg in 100 mls @ 100 mls/hr 07/31/18 16:00 07/31/18 20:02 Levaquin 500 Mg Premix Inj IV.SIG Infused Q48H [facility] Infusion Meropenem 1,000 mg/ Sodium 100 mls @ 200 mls/hr 07/31/18 20:00 08/01/18 11:34 Chloride IV.SIG Infused Q12H [facility] Infusion Latanoprost 1 drop 07/22/18 21:00 07/31/18 20:42 Xalatan 0.005% Opth Drops EACH EYE 1 drop HS [facility] Administration Oxycodone HCl 5 mg 07/22/18 14:46 08/01/18 09:44 Roxicodone PO 5 mg Q4H PRN Administration breakthrough pain Oxycodone HCl 20 mg 07/31/18 17:00 08/01/18 06:05 Oxycontin Cr PO 20 mg Q12H [facility] Administration Pom: (Lubiprostone [ 0 each 07/22/18 21:00 Amitiza] 24 Mcg) PO BID [facility] Tenofovir Disoproxil Fumarate 300 mg 07/24/18 09:00 08/01/18 09:43 Viread PO 300 mg EVERY OTHER DAY [facility] Administration Tolterodine Tartrate 4 mg 07/24/18 13:00 08/01/18 09:43 Detrol La PO 4 mg DAILY [facility] Administration Vitamin D 2,000 unit 07/25/18 09:00 08/01/18 09:44 Vitamin D3 PO 2,000 unit DAILY [facility] Administration Objective Remarks: IVONNE RRR Clear lungs Palacios is in place, urine is light pink 07/27 Abd:soft,nt,nd Palacios on CBI; now with pink urine; clots cleared. 07/28 Abd:soft,nt, nd Palacios with clear urine. 07/29 Abd:soft,nt,nd Palacios with gross hematuria with clots. 07/30 Abd:soft,nt,nd Palacios; now clear. 07/31 Abd:soft,nt,nd Palacios; now clear. 08/01 07/31 Abd:soft,nt,nd Palacios; now clear. Assessment and Plan - Plan 73y.o M with other medical issues listed in HPI Urology consulted for hematuria, which is resolving now No additional recommendations, same as below - Continue care as per primary team - No acute intervention needed - Hematuria can be related to self cath and UTI as well as to previous radiation. - Continue current treatment, follow ID recommendations - Manual irrigation of the bladder may help to get rid of bladder clots/debris seen in the bladder on Sono. Do it BID - Pt to see his urologist after d/c for further management, may need cysto as outpt. 07/27/18 73 y.o male with metastatic CaP with gross hematuria 24F 3-way palacios in place; clots irrigated and CBI started Hold SQ Heparin; will order SCD's instead Will need cystoscopy at later date and may need HBO as outpt to help RX Radiation cystitis Will follow. 07/28 73 y.o male with metastatic CaP with gross hematuria 24F 3-way palacios in place; urine now clear Cysto as outpt. 07/29 73 y.o male with metastatic CaP with gross hematuria Will need cysto with fulguration of bleeding in OR today Continue NPO. 07/30 73 y.o male with metastatic CaP with gross hematuria Continue supportive measures/transfusion/Amicar CBI To d/w Radiation oncology tomorrow. D/W Dr. Gant 07/31 73 y.o male with metastatic CaP with gross hematuria Continue supportive measures/transfusion/Amicar CBI Possible XRT therapy for control of bleeding. 08/01 73 y.o male with metastatic CaP with gross hematuria Urine now clearing on Amicar CBI XRT to start soon For SP tube insertion on .
--- NOTE | 2018-08-01 18:12 | P.PNID ---
Subjective Remarks: doing better, fever is low grade < 100 GFR stable @ 28 blood clx NGTD @ 2 days urine negative - final Antibiotics: meropenem levaquin vanco - stopped Past Medical History: prostate ca Allergies/Adverse Reactions: Allergies morphine Allergy (Severe, Verified 07/22/18 11:48) MORPHINE ALLERGY ADDED 12/19/07 @1500 - N/V Objective Vital Signs 07/31/18 19:00 07/31/18 20:00 07/31/18 20:05 Temperature 99.6 F Pulse Rate 82 88 91 H Respiratory Rate 16 Blood Pressure 113/57 L Pulse Oximetry 93 L 07/31/18 20:30 07/31/18 23:16 08/01/18 00:04 Temperature 99.3 F Pulse Rate 86 84 Respiratory Rate 16 Blood Pressure 107/53 L Pulse Oximetry 94 L 08/01/18 03:21 08/01/18 04:00 08/01/18 08:53 Temperature 99.9 F H 99.8 F H Pulse Rate 85 83 106 H Respiratory Rate 18 16 Blood Pressure 119/57 L 102/51 L Pulse Oximetry 95 93 L 08/01/18 12:00 08/01/18 12:28 08/01/18 16:43 Temperature 99.0 F Pulse Rate 93 H 106 H 83 Respiratory Rate 16 Blood Pressure 116/62 Pulse Oximetry 98 08/01/18 16:56 Temperature 99.1 F Pulse Rate 78 Respiratory Rate 18 Blood Pressure 109/60 Pulse Oximetry 98 Intake & Output 07/31/18 08/01/18 08/01/18 18:59 06:59 18:59 Intake Total 2160 / 2160 100 / 100 Output Total 5600 / 5600 2800 / 2800 4650 / 4650 Balance -5600 / -5600 -640 / -640 -4550 / -4550 Weight 84.3 kg Intake: IV 920 / 920 100 / 100 Calcium Gluconate Inj 1 GM In 110 / 110 D5W Inj 100 ML @ 110 mls/hr IV. SIG ONCE ONE Rx#:[id number] Maxipime Inj 1,000 MG In NS Inj 100 / 100 100 ML @ 200 mls/hr IV.SIG Q24HR [facility] Rx#:[id number] Levaquin 500 mg Premix Inj 500 100 / 100 mg In 100 ml @ 100 mls/hr IV. SIG Q48H [facility] Rx#:[id number] Merrem Inj 1,000 MG In NS Inj 110 / 110 100 / 100 100 ML @ 200 mls/hr IV.SIG Q12H [facility] Rx#:[id number] Vancomycin Inj 1,500 MG In NS 500 / 500 Inj 500 ML @ 250 mls/hr IV.SIG ONCE ONE Rx#:[id number] Oral 1240 / 1240 Output: Urine Amount (Catheter) 5600 / 5600 2800 / 2800 4650 / 4650 Indwelling Urethral Catheter 5600 / 5600 2800 / 2800 4650 / 4650 Other: Bladder Irrigation Fluid - Amount Instilled Indwelling Urethral Catheter 3,000 Bladder Irrigation Fluid - Amount Drained Indwelling Urethral Catheter 4,025 Date of Last Bowel Movement 07/30/18 07/30/18 07:50 Blood - Peripheral Aerobic Blood Culture - Preliminary No growth in 2 days 07/30/18 07:50 Blood - Peripheral Anaerobic Blood Culture - Preliminary No growth in 2 days 07/30/18 07:54 Blood - Peripheral Aerobic Blood Culture - Preliminary No growth in 2 days 07/30/18 07:54 Blood - Peripheral Anaerobic Blood Culture - Preliminary No growth in 2 days 07/30/18 11:55 Catheterized Urine Urine Culture - Final No growth in 48 hours 07/26/18 19:31 Blood - Peripheral Aerobic Blood Culture - Final No growth in 5 days 07/26/18 19:31 Blood - Peripheral Anaerobic Blood Culture - Final QNS - See aerobic report. 07/26/18 19:25 Blood - Peripheral Aerobic Blood Culture - Final No growth in 5 days 07/26/18 19:25 Blood - Peripheral Anaerobic Blood Culture - Final No growth in 5 days Lab - Hematology Results 07/31/18 06:43 WBC 9.7 RBC 2.57 L Hgb 8.1 L Hct 23.3 L MCV 91.0 MCH 31.6 MCHC 34.7 RDW 16.2 Plt Count 283 MPV 6.6 L Prelim Diff (Auto) Slide review pending Neut % (Auto) 75.7 H Lymph % (Auto) 9.5 [place] % (Auto) 12.8 H Eos % (Auto) 1.5 Baso % (Auto) 0.5 Neut # (Auto) 7.3 Lymph # (Auto) 0.9 L [place] # (Auto) 1.2 H Eos # (Auto) 0.1 Baso # (Auto) 0.0 WBC Differential Manual diff final Seg Neuts % (Manual) 66 Band Neuts % (Manual) 3 Lymphocytes % (Manual) 14 Monocytes % (Manual) 14 H Eosinophils % (Manual) 2 Myelocytes % (Man) 1 H Abs Neuts (Manual) 6.8 Differential Comment . Platelet Estimate Normal Platelet Morphology Normal RBC Morphology Normal Lab - Chemistry Results 07/31/18 08/01/18 06:43 06:04 Creatinine 2.30 H Estimated GFR 28 L Phosphorus 2.4 L Imaging: ITS Impressions Chest X-Ray 07/22/18 11:00 CONCLUSION: The lungs are grossly clear. Sclerotic metastatic disease. Abdomen/Bladder Ultrasound 07/23/18 00:00 CONCLUSION: 1. Significant debris within the bladder likely blood. Mild bilateral hydronephrosis left greater than right. Abdomen/Pelvis CT 07/24/18 00:00 CONCLUSION: 1. Abnormal bladder with increased density consistent with blood products and/ or tumor. A Palacios catheter is present with a small amount of air. 2. New mild to moderate bilateral hydronephrosis. Small bilateral pleural effusions right greater than left. 3. Extensive sclerotic metastatic disease with interval progression. Physical Exam: GENERAL: NAD chronically ill appearing SKIN: Warm and dry. No rash HEAD: Atraumatic. Normocephalic. EYES: Pupils equal and round. No scleral icterus. No injection or drainage. ENT: No nasal bleeding or discharge. Mucous membranes pink and moist. NECK: Trachea midline. No JVD. CARDIOVASCULAR: Regular rate and rhythm. RESPIRATORY: No accessory muscle use. Clear to auscultation. Breath sounds equal bilaterally. GASTROINTESTINAL: Abdomen soft, tender to palpation in lower quadrants w/o guarding or rebound + minimally distended. Hepatic and splenic margins not palpable. : palacios in place with reddish urine MUSCULOSKELETAL: Extremities without clubbing, cyanosis, + 2+ soft pitting edema. No obvious deformities. NEUROLOGICAL: Awake and alert. No obvious cranial nerve deficits. Motor grossly within normal limits. Five out of 5 muscle strength in the arms and legs. Normal speech. PSYCHIATRIC: Appropriate mood and affect; insight and judgment normal. Assessment and Plan - Plan Metastatic prostate cancer FUO (6 weeks) Hematuria Probably UTI - Staph epi not a typical pathogen GENI - worse Persistent fever - ? new UTI cont levaquin cont meropenem, renally adjusted FU blood e clx untill final procalcitonin will dc abx if bl clx remain negative and no other signs of obvious infection dw pt dw family
[2018-08-01] MEDS: Acetaminophen 325 MG Tablet PO PRN (20:35)
[2018-08-01] MEDS: Latanoprost 0.005% Opth Drops 2.5 ML Bottle EACH EYE SCH (21:45)
[2018-08-01] MEDS: diazePAM 5 MG Tablet PO PRN (23:59)
[2018-08-02] MEDS: Sodium Chloride 0.9% Irr Bag 3,000 ML, Aminocaproic Acid Inj 3,000 MG IRRIGATION PRN ×4 (03:25→05:52)
[2018-08-02 06:54] LABS: Calcium 6.8 mg/dL (8.5-10.1); Carbon Dioxide 26.7 meq/L (21.0-32.0); Potassium 3.4 meq/L (3.5-5.1)
[2018-08-02 06:55] LABS: Baso % (Auto) 0.5 % (0.0-2.0); Eos # (Auto) 0.1 th/mm3 (0.0-0.4); Eos % (Auto) 2.2 % (0.0-4.0); Lymph # (Auto) 0.5 th/mm3 (1.0-4.8); Lymph % (Auto) 10.8 % (9.0-44.0); Mean Corpuscular HGB Conc 33.7 % (32.0-36.0); Mean Corpuscular Hemoglobin 31.1 pg (27.0-34.0); Mean Corpuscular Volume 92.1 fL (80.0-100.0); Mean Platelet Volume 6.7 fL (7.0-11.0); Mono # (Auto) 0.8 th/mm3 (0.0-0.9); Mono % (Auto) 15.8 % (0.0-8.0); Neut # (Auto) 3.5 th/mm3 (1.8-7.7); Neut % (Auto) 70.7 % (16.0-70.0); Platelet Count 269 th/mm3 (150-450); Red Blood Count 2.25 mil/mm3 (4.50-5.90); Red Cell Distribution Width 16.7 % (11.6-17.2)
[2018-08-02 07:06] LABS: Hematocrit 20.7 % (39.0-51.0)
[2018-08-02 07:09] LABS: Total Protein 5.5 g/dL (6.4-8.2)
[2018-08-02] MEDS ORDERED: Acetaminophen 325 MG Tablet PO ONE (07:30)
--- NOTE | 2018-08-02 07:44 | P.PNONC ---
Subjective Interval history: Patient seen and examined, vital signs, labs, medications, reporting process consultant notes, microbiology and overnight events reviewed. Overnight nurse reports patient had significant increase in hematuria overnight. This has since resolved. He remains on an Amicar continuous bladder irrigation. T-max overnight was 102.7F (approximately 8 PM on the night of 08/01/2018). Subjectively; patient reports feeling weak, he tells me " I think I am never going to get out of the hospital ". He reports having had a fever last night. He continues to have lower abdominal pain and pelvic pain especially when he develops hematuria. Objective Vital Signs/Intake & Output: Vital Signs 08/01/18 08:53 08/01/18 12:00 08/01/18 12:28 Temperature 99.8 F H 99.0 F Pulse Rate 106 H 93 H 106 H Respiratory Rate 16 16 Blood Pressure 102/51 L 116/62 Pulse Oximetry 93 L 98 08/01/18 16:43 08/01/18 16:56 08/01/18 20:04 Temperature 99.1 F Pulse Rate 83 78 94 H Respiratory Rate 18 Blood Pressure 109/60 Pulse Oximetry 98 08/01/18 20:06 08/01/18 23:47 08/02/18 00:23 Temperature 102.7 F H 99.8 F H Pulse Rate 94 H 86 81 Respiratory Rate 16 16 Blood Pressure 112/52 L 106/50 L Pulse Oximetry 94 L 93 L 08/02/18 03:15 08/02/18 04:04 Temperature 98.7 F Pulse Rate 65 64 Respiratory Rate 18 Blood Pressure 93/45 L Pulse Oximetry 96 Intake & Output 08/01/18 08/02/18 08/02/18 18:59 06:59 18:59 Intake Total 100 / 100 1110 / 1110 Output Total 4650 / 4650 Balance -4550 / -4550 1110 / 1110 Weight 84.4 kg Intake: IV 100 / 100 110 / 110 Merrem Inj 1,000 MG In NS Inj 100 / 100 110 / 110 100 ML @ 200 mls/hr IV.SIG Q12H [facility] Rx#:[id number] Oral 1000 / 1000 Output: Urine Amount (Catheter) 4650 / 4650 Indwelling Urethral Catheter 4650 / 4650 Other: Bladder Irrigation Fluid - Amount Instilled Indwelling Urethral Catheter 3,000 Bladder Irrigation Fluid - Amount Drained Indwelling Urethral Catheter 3,750 Date of Last Bowel Movement 08/01/18 Result Diagrams: 08/02/18 05:59 08/02/18 05:59 Laboratory Results: Laboratory Results - last 24 hr 07/29/18 07/30/18 08/02/18 09:29 06:49 05:59 WBC 5.0 RBC 2.25 L Hgb 7.0 L Hct 20.7 L* MCV 92.1 MCH 31.1 MCHC 33.7 RDW 16.7 Plt Count 269 MPV 6.7 L Prelim Diff (Auto) Slide review pending Neut % (Auto) 70.7 H Lymph % (Auto) 10.8 Metcalfe % (Auto) 15.8 H Eos % (Auto) 2.2 Baso % (Auto) 0.5 Neut # (Auto) 3.5 Lymph # (Auto) 0.5 L [place]fe # (Auto) 0.8 Eos # (Auto) 0.1 Baso # (Auto) 0.0 Differential Comment . Sodium Potassium Chloride Carbon Dioxide Anion Gap BUN Creatinine Estimated GFR Random Glucose Calcium Prot Corrected Calcium Total Protein MTS Gel Crossmatch See Detail See Detail 08/02/18 05:59 WBC RBC Hgb Hct MCV MCH MCHC RDW Plt Count MPV Prelim Diff (Auto) Neut % (Auto) Lymph % (Auto) Metcalfe % (Auto) Eos % (Auto) Baso % (Auto) Neut # (Auto) Lymph # (Auto) Metcalfe # (Auto) Eos # (Auto) Baso # (Auto) Differential Comment Sodium 141 Potassium 3.4 L Chloride 106 Carbon Dioxide 26.7 Anion Gap 8 BUN 24 H Creatinine 2.27 H Estimated GFR 28 L Random Glucose 98 Calcium 6.8 L* Prot Corrected Calcium 7.6 L Total Protein 5.5 L MTS Gel Crossmatch Culture Results: Microbiology 07/30/18 07:50 Aerobic Blood Culture - Preliminary Blood - Peripheral No growth in 2 days Anaerobic Blood Culture - Preliminary No growth in 2 days 07/30/18 07:54 Aerobic Blood Culture - Preliminary Blood - Peripheral No growth in 2 days Anaerobic Blood Culture - Preliminary No growth in 2 days 07/30/18 11:55 Urine Culture - Final Catheterized Urine No growth in 48 hours 07/26/18 19:31 Aerobic Blood Culture - Final Blood - Peripheral No growth in 5 days Anaerobic Blood Culture - Final QNS - See aerobic report. 07/26/18 19:25 Aerobic Blood Culture - Final Blood - Peripheral No growth in 5 days Anaerobic Blood Culture - Final No growth in 5 days Medications: Active Medications Generic Name Dose Route Start Last Admin Trade Name Freq PRN Reason Stop Dose Admin Acetaminophen 650 mg 07/22/18 13:55 07/31/18 03:33 Tylenol PO 650 mg Q4H PRN Administration fever Acetaminophen 650 mg 07/29/18 08:29 08/01/18 20:35 Tylenol PO 650 mg Q4H PRN Administration SEE LABEL COMMENTS Bupropion HCl 150 mg 07/22/18 14:00 08/01/18 09:43 Wellbutrin Xl PO 150 mg DAILY [facility] Administration Sodium Chloride 3,000 ml/ 0 ml 07/29/18 23:03 08/02/18 05:52 Aminocaproic Acid 3,000 mg IRRIGATION 3,000 irrig.soln Q24H PRN Administration TO KEEP URINE CLEAR Diazepam 5 mg 07/22/18 13:57 08/01/18 23:59 Valium PO 5 mg DAILY PRN Administration Anxiety Docusate Sodium 100 mg 07/25/18 15:45 08/01/18 20:41 Colace PO Not Given TID [facility] Folic Acid 1 mg 07/24/18 12:00 08/01/18 09:44 Folic Acid PO 1 mg DAILY [facility] Administration Gabapentin 300 mg 07/23/18 21:00 08/01/18 21:45 Neurontin PO 300 mg BID [facility] Administration Hydromorphone HCl 0.5 mg 07/26/18 19:30 07/31/18 13:08 Dilaudid Pf Inj IV.PUSH 0.5 mg Q4H PRN Administration BREAKTHROUGH PAIN Levofloxacin/Dextrose 500 mg in 100 mls @ 100 mls/hr 07/31/18 16:00 07/31/18 20:02 Levaquin 500 Mg Premix Inj IV.SIG Infused Q48H [facility] Infusion Meropenem 1,000 mg/ Sodium 100 mls @ 200 mls/hr 07/31/18 20:00 08/01/18 21:46 Chloride IV.SIG Infused Q12H [facility] Infusion Latanoprost 1 drop 07/22/18 21:00 08/01/18 21:45 Xalatan 0.005% Opth Drops EACH EYE 1 drop HS [facility] Administration Oxycodone HCl 5 mg 07/22/18 14:46 08/02/18 06:50 Roxicodone PO 5 mg Q4H PRN Administration breakthrough pain Oxycodone HCl 20 mg 08/01/18 20:00 08/01/18 20:35 Oxycontin Cr PO 20 mg Q12H [facility] Administration Tenofovir Disoproxil Fumarate 300 mg 07/24/18 09:00 08/01/18 09:43 Viread PO 300 mg EVERY OTHER DAY [facility] Administration Tolterodine Tartrate 4 mg 07/24/18 13:00 08/01/18 09:43 Detrol La PO 4 mg DAILY [facility] Administration Vitamin D 2,000 unit 07/25/18 09:00 08/01/18 09:44 Vitamin D3 PO 2,000 unit DAILY [facility] Administration Objective Remarks: GENERAL: Elderly male, laying in bed, appears to be frail and pale. Chronically ill-appearing. SKIN: Warm, pale and dry. HEAD: Normocephalic. EYES: No scleral icterus. No injection or drainage. NECK: Supple, trachea midline. No JVD or lymphadenopathy. LYMPHATIC: No adenopathy. CARDIOVASCULAR: Regular rate and rhythm without murmurs. RESPIRATORY: Breath sounds equal bilaterally. No accessory muscle use. GASTROINTESTINAL: Tenderness in the left lower quadrant, no masses palpable. EXTREMITIES: No cyanosis, dependent edema over the distal lower extremities. MUSCULOSKELETAL: Atrophic muscle mass. NEUROLOGICAL: No obvious focal deficit. Awake, alert, and oriented x3. PSYCHIATRIC: Appropriate mood and affect; insight and judgment normal. Assessment/Plan - Plan Mr. Queen Is a 73-year-old man with a diagnosis of metastatic prostate carcinoma , he has had an excellent response to combination therapy consisting of leuprolide and Xtandi. His PSA levels have been less than 0.1 ng/dL over the past several months. He has extensive metastatic disease burden involving his axial skeleton especially his pelvis. Most recent PET CT scan revealed most of his previously active metastatic disease to be dormant, he however had intense hypermetabolic activity localized to the prostate and to the bladder. In late June he underwent cystoscopy for workup of hematuria with his former urologist Dr. Parmar, no obvious cause for hematuria was identified. He is now in the hospital with fevers, hematuria and pelvic pain. Clinically he has suspected prostatitis and is on broad-spectrum antibiotics with Zosyn and levofloxacin. Urine cultures and blood cultures are negative thus far other than forced staph epidermidis. CT scan of the abdomen/pelvis revealed no obvious cause for the hematuria. Recommendations: 1. Febrile illness: Spiked temperature of 102.7F last night, he is on levofloxacin and meropenem. All cultures negative. Etiology not known, suspected recurrent urinary tract infection. 2. Hematuria: Recurs periodically, hemoglobin dropped down from 8 g/dL yesterday to 7 g/dL today. 2 unit packed red blood cell ordered for today. He is currently on an Amicar continuous bladder irrigation. Yesterday he underwent simulation for palliative radiation planning purposes to target the prostate with the hope of controlling the bleeding. 3. Pain control, continue long and short acting opioids. Patient reports his pain is minimal so long as he is not passing large clots through his Engel catheter. And as long as his Engel catheter is not obstructed. 4. Metastatic prostate carcinoma, PSA less than 0.1, total testosterone 9.9, free testosterone 0.2. 5. Anemia, related to large volume hematuria, continue supportive red cell transfusions. Disposition: The patient expresses his concern about ever being able to recover to the point where he can return to his previous functional status and functional independence. I have explained to the patient that there is a very strong possibility that he may not recover to the point where he is able to function independently or in fact even live without having an indwelling either Engel catheter suprapubic catheter. I have explained to him that his condition is precarious and that if our current interventions i.e. palliative radiation to the prostate, supportive measures are not helpful he may require transfer to a higher level of care. He understands, he is requested I speak to his to give her an update on the current issues. Continue ongoing care.
[2018-08-02 08:24] LABS: Eosinophils 1 % (0-4); Lymphocytes 8 % (9-44); Metamyelocytes 4 % (0-1); Monocytes 10 % (0-8); Myelocytes 3 % (0-0); Platelet Estimate Normal (Normal); Platelet Morphology Normal (Normal)
--- NOTE | 2018-08-02 08:59 | P.PNURO ---
Subjective Patient symptoms today: Pt seen and examined. Urine is clear. Objective Vital Signs: Vital Signs 08/01/18 12:00 08/01/18 12:28 08/01/18 16:43 Temperature 99.0 F Pulse Rate 93 H 106 H 83 Respiratory Rate 16 Blood Pressure 116/62 Pulse Oximetry 98 08/01/18 16:56 08/01/18 20:04 08/01/18 20:06 Temperature 99.1 F 102.7 F H Pulse Rate 78 94 H 94 H Respiratory Rate 18 16 Blood Pressure 109/60 112/52 L Pulse Oximetry 98 94 L 08/01/18 23:47 08/02/18 00:23 08/02/18 03:15 Temperature 99.8 F H 98.7 F Pulse Rate 86 81 65 Respiratory Rate 16 18 Blood Pressure 106/50 L 93/45 L Pulse Oximetry 93 L 96 08/02/18 04:04 Temperature Pulse Rate 64 Respiratory Rate Blood Pressure Pulse Oximetry Intake & Output 08/01/18 08/02/18 08/02/18 18:59 06:59 18:59 Intake Total 100 / 100 1110 / 1110 Output Total 4650 / 4650 Balance -4550 / -4550 1110 / 1110 Weight 84.4 kg Intake: IV 100 / 100 110 / 110 Merrem Inj 1,000 MG In NS Inj 100 / 100 110 / 110 100 ML @ 200 mls/hr IV.SIG Q12H [facility] Rx#:[id number] Oral 1000 / 1000 Output: Urine Amount (Catheter) 4650 / 4650 Indwelling Urethral Catheter 4650 / 4650 Other: Bladder Irrigation Fluid - Amount Instilled Indwelling Urethral Catheter 3,000 Bladder Irrigation Fluid - Amount Drained Indwelling Urethral Catheter 3,750 Date of Last Bowel Movement 08/01/18 Result Diagrams: 08/02/18 05:59 08/02/18 05:59 Medications and IVs: Active Medications Generic Name Dose Route Start Last Admin Trade Name Freq PRN Reason Stop Dose Admin Acetaminophen 650 mg 07/22/18 13:55 07/31/18 03:33 Tylenol PO 650 mg Q4H PRN Administration fever Acetaminophen 650 mg 07/29/18 08:29 08/01/18 20:35 Tylenol PO 650 mg Q4H PRN Administration SEE LABEL COMMENTS Bupropion HCl 150 mg 07/22/18 14:00 08/01/18 09:43 Wellbutrin Xl PO 150 mg DAILY [facility] Administration Sodium Chloride 3,000 ml/ 0 ml 07/29/18 23:03 08/02/18 05:52 Aminocaproic Acid 3,000 mg IRRIGATION 3,000 irrig.soln Q24H PRN Administration TO KEEP URINE CLEAR Diazepam 5 mg 07/22/18 13:57 08/01/18 23:59 Valium PO 5 mg DAILY PRN Administration Anxiety Docusate Sodium 100 mg 07/25/18 15:45 08/01/18 20:41 Colace PO Not Given TID [facility] Folic Acid 1 mg 07/24/18 12:00 08/01/18 09:44 Folic Acid PO 1 mg DAILY [facility] Administration Gabapentin 300 mg 07/23/18 21:00 08/01/18 21:45 Neurontin PO 300 mg BID [facility] Administration Hydromorphone HCl 0.5 mg 07/26/18 19:30 07/31/18 13:08 Dilaudid Pf Inj IV.PUSH 0.5 mg Q4H PRN Administration BREAKTHROUGH PAIN Levofloxacin/Dextrose 500 mg in 100 mls @ 100 mls/hr 07/31/18 16:00 07/31/18 20:02 Levaquin 500 Mg Premix Inj IV.SIG Infused Q48H [facility] Infusion Meropenem 1,000 mg/ Sodium 100 mls @ 200 mls/hr 07/31/18 20:00 08/01/18 21:46 Chloride IV.SIG Infused Q12H [facility] Infusion Latanoprost 1 drop 07/22/18 21:00 08/01/18 21:45 Xalatan 0.005% Opth Drops EACH EYE 1 drop HS [facility] Administration Oxycodone HCl 5 mg 07/22/18 14:46 08/02/18 06:50 Roxicodone PO 5 mg Q4H PRN Administration breakthrough pain Oxycodone HCl 20 mg 08/01/18 20:00 08/01/18 20:35 Oxycontin Cr PO 20 mg Q12H [facility] Administration Pom: (Lubiprostone [ 0 each 07/22/18 21:00 Amitiza] 24 Mcg) PO BID [facility] Tenofovir Disoproxil Fumarate 300 mg 07/24/18 09:00 08/01/18 09:43 Viread PO 300 mg EVERY OTHER DAY [facility] Administration Tolterodine Tartrate 4 mg 07/24/18 13:00 08/01/18 09:43 Detrol La PO 4 mg DAILY [facility] Administration Vitamin D 2,000 unit 07/25/18 09:00 08/01/18 09:44 Vitamin D3 PO 2,000 unit DAILY [facility] Administration Objective Remarks: IVONNE RRR Clear lungs Pal[place] is in place, urine is light pink 07/27 Abd:soft,nt,nd [place] on CBI; now with pink urine; clots cleared. 07/28 Abd:soft,nt, nd [place]ios with clear urine. 07/29 Abd:soft,nt,nd [place] with gross hematuria with clots. 07/30 Abd:soft,nt,nd [place]ios; now clear. 07/31 Abd:soft,nt,nd [place]; now clear. 08/01 Abd:soft,nt,nd [place]acios; now clear. 08/02 Abd:soft,nt,nd [place]: clear. Assessment and Plan - Plan 73y.o M with other medical issues listed in HPI Urology consulted for hematuria, which is resolving now No additional recommendations, same as below - Continue care as per primary team - No acute intervention needed - Hematuria can be related to self cath and UTI as well as to previous radiation. - Continue current treatment, follow ID recommendations - Manual irrigation of the bladder may help to get rid of bladder clots/debris seen in the bladder on Sono. Do it BID - Pt to see his urologist after d/c for further management, may need cysto as outpt. 07/27/18 73 y.o male with metastatic CaP with gross hematuria 24F 3-way palacios in place; clots irrigated and CBI started Hold SQ Heparin; will order SCD's instead Will need cystoscopy at later date and may need HBO as outpt to help RX Radiation cystitis Will follow. 07/28 73 y.o male with metastatic CaP with gross hematuria 24F 3-way palacios in place; urine now clear Cysto as outpt. 07/29 73 y.o male with metastatic CaP with gross hematuria Will need cysto with fulguration of bleeding in OR today Continue NPO. 07/30 73 y.o male with metastatic CaP with gross hematuria Continue supportive measures/transfusion/Amicar CBI To d/w Radiation oncology tomorrow. D/W Dr. Gant 07/31 73 y.o male with metastatic CaP with gross hematuria Continue supportive measures/transfusion/Amicar CBI Possible XRT therapy for control of bleeding. 08/01 73 y.o male with metastatic CaP with gross hematuria Urine now clearing on Amicar CBI XRT to start soon For SP tube insertion on . 08/02 73 y.o male with metastatic CaP with gross hematuria Urine now clearing on Amicar CBI XRT to start soon For SP tube insertion tomorrow.
[2018-08-02] MEDS: Docusate Sodium 100 MG Capsule PO SCH ×3 (09:40→19:32)
[2018-08-02] MEDS: Calcium Carbonate 500 MG Tablet PO SCH ×2 (09:40→20:47)
[2018-08-02] MEDS: Folic Acid 1 MG Tablet PO SCH (09:40)
[2018-08-02] MEDS: oxyCODONE 10 MG Controlled Release Tablet PO SCH ×2 (09:42→20:47)
--- NOTE | 2018-08-02 10:20 | P.PNNP ---
Subjective Interval history: Renal function is slightly better. To have XRT today. Also possible suprapubic catheter placement today. Passed a clot that was very painful. On CBI Physical Exam Vital signs: Vital Signs 08/01/18 12:00 08/01/18 12:28 08/01/18 16:43 Temperature 99.0 F Pulse Rate 93 H 106 H 83 Respiratory Rate 16 Blood Pressure 116/62 Pulse Oximetry 98 08/01/18 16:56 08/01/18 20:04 08/01/18 20:06 Temperature 99.1 F 102.7 F H Pulse Rate 78 94 H 94 H Respiratory Rate 18 16 Blood Pressure 109/60 112/52 L Pulse Oximetry 98 94 L 08/01/18 23:47 08/02/18 00:23 08/02/18 03:15 Temperature 99.8 F H 98.7 F Pulse Rate 86 81 65 Respiratory Rate 16 18 Blood Pressure 106/50 L 93/45 L Pulse Oximetry 93 L 96 08/02/18 04:04 Temperature Pulse Rate 64 Respiratory Rate Blood Pressure Pulse Oximetry Intake & Output 08/01/18 08/02/18 08/02/18 18:59 06:59 18:59 Intake Total 100 / 100 1110 / 1110 Output Total 4650 / 4650 Balance -4550 / -4550 1110 / 1110 Weight 84.4 kg Intake: IV 100 / 100 110 / 110 Merrem Inj 1,000 MG In NS Inj 100 / 100 110 / 110 100 ML @ 200 mls/hr IV.SIG Q12H [facility] Rx#:[id number] Oral 1000 / 1000 Output: Urine Amount (Catheter) 4650 / 4650 Indwelling Urethral Catheter 4650 / 4650 Other: Bladder Irrigation Fluid - Amount Instilled Indwelling Urethral Catheter 3,000 Bladder Irrigation Fluid - Amount Drained Indwelling Urethral Catheter 3,750 Date of Last Bowel Movement 08/01/18 Narrative: GENERAL: Alert, oriented 3, NAD. SKIN: Warm and dry. HEAD: Normocephalic. EYES: No scleral icterus. No injection or drainage. NECK: Supple, trachea midline. No JVD or lymphadenopathy. CARDIOVASCULAR: Regular rate and rhythm without murmurs, gallops, or rubs. RESPIRATORY: Breath sounds equal bilaterally. No accessory muscle use. GASTROINTESTINAL: Abdomen soft, tender to palpation in the lower abdomen, nondistended. MUSCULOSKELETAL: No cyanosis, or edema. Tender to palpation over lower extremities. : Engel cath bag has normal color urine BACK: Nontender without obvious deformity. No CVA tenderness. - Urinary Catheter Management Indwelling Urethral Catheter Cath placed during this visit: yes Reason for continuing: Gross Hematuria Insertion date: 07/29/18 Insertion time: 11:00 Assessment and Plan - Assessment (1) Acute on chronic kidney failure Code(s): N17.9 - Acute kidney failure, unspecified; N18.9 - Chronic kidney disease, unspecified Status: Acute Plan: patient's renal function is stable, monitor. Avoid nephrotoxic agents. Monitor urine output. (2) Gross hematuria Code(s): R31.0 - Gross hematuria Status: Acute Plan: Urology following. Possible bleeding from prostate. May have prostatitis. XRT is planned and suprapubic catheter placement is planned as well. (3) Prostate cancer metastatic to bone Code(s): C61 - Malignant neoplasm of prostate; C79.51 - Secondary malignant neoplasm of bone Status: Acute Plan: Hematology/Oncology note was reviewed. (4) Acute UTI Code(s): N39.0 - Urinary tract infection, site not specified Status: Acute Plan: Possible prostatitis. On antibiotic.
--- NOTE | 2018-08-02 10:57 | P.PN ---
Subjective Interval history: Follow up for persistent hematuria, metastatic prostate cancer. Patient is currently doing well. However overnight he had significant hematuria causing drop in his hemoglobin to 7.0. He also had a temperature of 102.7F last night. Currently no chest pain, shortness of breath, fever or chills. Family and the patient are concerned about his ongoing bleeding problems. Physical Exam Vital signs: Vital Signs 08/01/18 12:00 08/01/18 12:28 08/01/18 16:43 Temperature 99.0 F Pulse Rate 93 H 106 H 83 Respiratory Rate 16 Blood Pressure 116/62 Pulse Oximetry 98 08/01/18 16:56 08/01/18 20:04 08/01/18 20:06 Temperature 99.1 F 102.7 F H Pulse Rate 78 94 H 94 H Respiratory Rate 18 16 Blood Pressure 109/60 112/52 L Pulse Oximetry 98 94 L 08/01/18 23:47 08/02/18 00:23 08/02/18 03:15 Temperature 99.8 F H 98.7 F Pulse Rate 86 81 65 Respiratory Rate 16 18 Blood Pressure 106/50 L 93/45 L Pulse Oximetry 93 L 96 08/02/18 04:04 Temperature Pulse Rate 64 Respiratory Rate Blood Pressure Pulse Oximetry Intake & Output 08/01/18 08/02/18 08/02/18 18:59 06:59 18:59 Intake Total 100 / 100 1110 / 1110 Output Total 4650 / 4650 Balance -4550 / -4550 1110 / 1110 Weight 84.4 kg Intake: IV 100 / 100 110 / 110 Merrem Inj 1,000 MG In NS Inj 100 / 100 110 / 110 100 ML @ 200 mls/hr IV.SIG Q12H [facility] Rx#:[id number] Oral 1000 / 1000 Output: Urine Amount (Catheter) 4650 / 4650 Indwelling Urethral Catheter 4650 / 4650 Other: Bladder Irrigation Fluid - Amount Instilled Indwelling Urethral Catheter 3,000 Bladder Irrigation Fluid - Amount Drained Indwelling Urethral Catheter 3,750 Date of Last Bowel Movement 08/01/18 Narrative: GENERAL: Alert, oriented 3, NAD. SKIN: Warm and dry. HEAD: Normocephalic. EYES: No scleral icterus. No injection or drainage. NECK: Supple, trachea midline. No JVD or lymphadenopathy. CARDIOVASCULAR: Regular rate and rhythm without murmurs, gallops, or rubs. RESPIRATORY: Breath sounds equal bilaterally. No accessory muscle use. GASTROINTESTINAL: Abdomen soft, tender to palpation in the lower abdomen, nondistended. MUSCULOSKELETAL: No cyanosis, or edema. Tender to palpation over lower extremities. : Engel cath bag has normal color urine BACK: Nontender without obvious deformity. No CVA tenderness. - Urinary Catheter Management Indwelling Urethral Catheter Cath placed during this visit: yes Reason for continuing: Gross Hematuria Insertion date: 07/29/18 Insertion time: 11:00 Results - Labs CBC & Chem 7: 08/02/18 05:59 08/02/18 05:59 Laboratory Results - last 24 hr 07/29/18 08/02/18 08/02/18 09:29 05:59 05:59 WBC 5.0 RBC 2.25 L Hgb 7.0 L Hct 20.7 L* MCV 92.1 MCH 31.1 MCHC 33.7 RDW 16.7 Plt Count 269 MPV 6.7 L Prelim Diff (Auto) Slide review pending Neut % (Auto) 70.7 H Lymph % (Auto) 10.8 [place] % (Auto) 15.8 H Eos % (Auto) 2.2 Baso % (Auto) 0.5 Neut # (Auto) 3.5 Lymph # (Auto) 0.5 L [place] # (Auto) 0.8 Eos # (Auto) 0.1 Baso # (Auto) 0.0 WBC Differential Manual diff final Seg Neuts % (Manual) 71 H Band Neuts % (Manual) 2 Lymphocytes % (Manual) 8 L Monocytes % (Manual) 10 H Eosinophils % (Manual) 1 Basophils % (Manual) 1 Metamyelocytes % (Man) 4 H Myelocytes % (Man) 3 H Abs Neuts (Manual) 4.0 Differential Comment . Platelet Estimate Normal Platelet Morphology Normal Sodium Potassium Chloride Carbon Dioxide Anion Gap BUN Creatinine Estimated GFR Random Glucose Calcium Prot Corrected Calcium Total Protein Procalcitonin 0.26 H Blood Type Antibody Screen MTS Gel Crossmatch See Detail 08/02/18 08/02/18 05:59 08:45 WBC RBC Hgb Hct MCV MCH MCHC RDW Plt Count MPV Prelim Diff (Auto) Neut % (Auto) Lymph % (Auto) [place] % (Auto) Eos % (Auto) Baso % (Auto) Neut # (Auto) Lymph # (Auto) [place] # (Auto) Eos # (Auto) Baso # (Auto) WBC Differential Seg Neuts % (Manual) Band Neuts % (Manual) Lymphocytes % (Manual) Monocytes % (Manual) Eosinophils % (Manual) Basophils % (Manual) Metamyelocytes % (Man) Myelocytes % (Man) Abs Neuts (Manual) Differential Comment Platelet Estimate Platelet Morphology Sodium 141 Potassium 3.4 L Chloride 106 Carbon Dioxide 26.7 Anion Gap 8 BUN 24 H Creatinine 2.27 H Estimated GFR 28 L Random Glucose 98 Calcium 6.8 L* Prot Corrected Calcium 7.6 L Total Protein 5.5 L Procalcitonin Blood Type A Positive Antibody Screen Negative MTS Gel Crossmatch See Detail Microbiology 07/30/18 07:50 Blood - Peripheral Aerobic Blood Culture - Preliminary No growth in 2 days 07/30/18 07:50 Blood - Peripheral Anaerobic Blood Culture - Preliminary No growth in 2 days 07/30/18 07:54 Blood - Peripheral Aerobic Blood Culture - Preliminary No growth in 2 days 07/30/18 07:54 Blood - Peripheral Anaerobic Blood Culture - Preliminary No growth in 2 days 07/30/18 11:55 Catheterized Urine Urine Culture - Final No growth in 48 hours Assessment and Plan - Assessment (1) Acute UTI Code(s): N39.0 - Urinary tract infection, site not specified Status: Acute (2) Prostate cancer metastatic to bone Code(s): C61 - Malignant neoplasm of prostate; C79.51 - Secondary malignant neoplasm of bone Status: Acute - Plan Mr. Queen is a pleasant 73-year-old male with a history of metastatic prostate carcinoma who was admitted to the hospital due to fever, hematuria and pelvic pain. Infectious disease as well as oncology and urology have been following patient. Patient is currently on levofloxacin and Zosyn for suspected prostatitis. Acute prostatitis -Continue levofloxacin 500 mg Q48hrs. Infectious disease added meropenem and micafungin. -Follow blood culture and urine cultures. Persistent hematuria Bilateral hydronephrosis on ultrasound left greater than right -Patient underwent surgical intervention on 07/29/2018. -Radiation oncology is planning treatments on 08/03/2018. -Suprapubic catheter placement on 08/03/2018. -Continue CBI with Amicar. Acute post-hemorrhagic anemia due to Genitourinary tract bleeding. -Hematuria occurred again last night. -Two units of PRBCs today. Metastatic prostate carcinoma -Oncology is following. Patient is has had good response to leuprolide and Enzalutamide (Xtandi). -Continue oxycodone for pain control. Continue long-acting OxyContin 20 mg twice daily. Hypocalcemia -Received 1g Calcium Gluconate. Ca is 7.6 today. Full code. Ambulation. Pharmacological DVT prophylaxis contraindicated at this point. Discussed with Dr. Gant and family members.
[2018-08-02] MEDS: buPROPion 150 MG XL 24 HR Tablet PO SCH (12:03)
[2018-08-02] MEDS: Tolterodine Tartrate LA 4 MG Capsule PO SCH (12:04)
[2018-08-02] MEDS: HYDROmorphone PF Inj 2 MG/ML Vial IV.PUSH PRN ×2 (12:12→23:03)
[2018-08-02] MEDS: Levofloxacin 500 mg Premix Inj 500 MG/100 ML PIGGYBACK IV.SIG SCH (20:07)
[2018-08-02] MEDS: Gabapentin 300 MG Capsule PO SCH ×2 (20:07→20:47)
[2018-08-02] MEDS: Latanoprost 0.005% Opth Drops 2.5 ML Bottle EACH EYE SCH (21:08)
[2018-08-02] MEDS: Acetaminophen 325 MG Tablet PO PRN (23:41)
[2018-08-02] MEDS: Belladonna Alkaloid/Opium 60 MG Supp RECTAL PRN (23:41)
[2018-08-03 06:57] LABS: Albumin 1.7 g/dL (3.4-5.0); Calcium 6.8 mg/dL (8.5-10.1); Carbon Dioxide 26.5 meq/L (21.0-32.0); Phosphorus 2.6 mg/dL (2.5-4.9); Potassium 3.7 meq/L (3.5-5.1)
--- NOTE | 2018-08-03 08:38 | P.PNONC ---
Subjective Interval history: Patient seen and examined, vital signs, labs, medications overnight events and microbiology reviewed. Plans for suprapubic catheter placement later today noted. Temperature maximum of approximately 101.5F over the past 24 hours noted. Current antibiotics include meropenem and levofloxacin. Patient reports having had significant bladder spasms yesterday, a belladonna suppository was placed which helped. Patient otherwise denies difficulty breathing, chest pain. He continues to have lower abdominal pain and pelvic pain. There was no significant hematuria yesterday. Plans noted to initiate palliative radiation to the prostate later this afternoon. Objective Vital Signs/Intake & Output: Vital Signs 08/02/18 12:00 08/02/18 12:33 08/02/18 15:51 Temperature 98.2 F 98.2 F 98.9 F Pulse Rate 89 96 H 81 Respiratory Rate 19 18 Blood Pressure 108/56 L 108/56 L 108/59 L Pulse Oximetry 96 96 96 08/02/18 16:00 08/02/18 16:09 08/02/18 16:10 Temperature 98.2 F Pulse Rate 80 Respiratory Rate 19 18 18 Blood Pressure 110/60 Pulse Oximetry 96 08/02/18 20:00 08/03/18 00:00 08/03/18 01:00 Temperature 98.3 F 101.4 F H 99.3 F Pulse Rate 87 85 Respiratory Rate 16 16 Blood Pressure 131/81 132/67 Pulse Oximetry 97 98 08/03/18 04:00 Temperature 97.3 F L Pulse Rate 74 Respiratory Rate 16 Blood Pressure 108/56 L Pulse Oximetry 97 Intake & Output 08/02/18 08/03/18 08/03/18 18:59 06:59 18:59 Intake Total 100 / 100 680 / 680 Balance 100 / 100 680 / 680 Weight 85.5 kg Intake: IV 100 / 100 200 / 200 Levaquin 500 mg Premix Inj 500 100 / 100 mg In 100 ml @ 100 mls/hr IV. SIG Q48H [facility] Rx#:[id number] Merrem Inj 1,000 MG In NS Inj 100 / 100 100 / 100 100 ML @ 200 mls/hr IV.SIG Q12H [facility] Rx#:[id number] Oral 480 / 480 Intake (Blood Product) Amt 0 / 0 0 / 0 Rbc As-3 Leukoreduced Unit 0 / 0 0 / 0 [id number] Rbc Cp2d Leukoreduced Unit 0 / 0 [id number] Other: Bladder Irrigation Fluid - Amount Instilled Indwelling Urethral Catheter 21,000 Bladder Irrigation Fluid - Amount Drained Indwelling Urethral Catheter 21,475 Date of Last Bowel Movement 08/02/18 Result Diagrams: 08/02/18 05:59 08/03/18 06:04 Laboratory Results: Laboratory Results - last 24 hr 08/02/18 08/02/18 08/03/18 05:59 08:45 06:04 Sodium 140 Potassium 3.7 Chloride 106 Carbon Dioxide 26.5 Anion Gap 8 BUN 23 H Creatinine 2.19 H Estimated GFR 29 L Random Glucose 106 Calcium 6.8 L* Phosphorus 2.6 Albumin 1.7 L Procalcitonin 0.26 H Blood Type A Positive Antibody Screen Negative MTS Gel Crossmatch See Detail Culture Results: Microbiology 07/30/18 07:50 Aerobic Blood Culture - Preliminary Blood - Peripheral No growth in 3 days Anaerobic Blood Culture - Preliminary No growth in 3 days 07/30/18 07:54 Aerobic Blood Culture - Preliminary Blood - Peripheral No growth in 3 days Anaerobic Blood Culture - Preliminary No growth in 3 days 07/30/18 11:55 Urine Culture - Final Catheterized Urine No growth in 48 hours 07/26/18 19:31 Aerobic Blood Culture - Final Blood - Peripheral No growth in 5 days Anaerobic Blood Culture - Final QNS - See aerobic report. 07/26/18 19:25 Aerobic Blood Culture - Final Blood - Peripheral No growth in 5 days Anaerobic Blood Culture - Final No growth in 5 days Medications: Active Medications Generic Name Dose Route Start Last Admin Trade Name Freq PRN Reason Stop Dose Admin Acetaminophen 650 mg 07/22/18 13:55 08/02/18 23:41 Tylenol PO 650 mg Q4H PRN Administration fever Acetaminophen 650 mg 07/29/18 08:29 08/01/18 20:35 Tylenol PO 650 mg Q4H PRN Administration SEE LABEL COMMENTS Belladonna Alkaloids/Opium 60 mg 08/02/18 15:30 08/02/18 23:41 B & O Supp RECTAL 60 mg Q6HR PRN Administration BLADDER SPASM Bupropion HCl 150 mg 07/22/18 14:00 08/02/18 12:03 Wellbutrin Xl PO 150 mg DAILY [facility] Administration Sodium Chloride 3,000 ml/ 0 ml 07/29/18 23:03 08/02/18 05:52 Aminocaproic Acid 3,000 mg IRRIGATION 3,000 irrig.soln Q24H PRN Administration TO KEEP URINE CLEAR Diazepam 5 mg 07/22/18 13:57 08/01/18 23:59 Valium PO 5 mg DAILY PRN Administration Anxiety Docusate Sodium 100 mg 07/25/18 15:45 08/02/18 19:32 Colace PO Not Given TID [facility] Folic Acid 1 mg 07/24/18 12:00 08/02/18 09:40 Folic Acid PO 1 mg DAILY [facility] Administration Gabapentin 300 mg 07/23/18 21:00 08/02/18 20:47 Neurontin PO 300 mg BID [facility] Administration Hydromorphone HCl 0.5 mg 07/26/18 19:30 08/02/18 23:03 Dilaudid Pf Inj IV.PUSH 0.5 mg Q4H PRN Administration BREAKTHROUGH PAIN Levofloxacin/Dextrose 500 mg in 100 mls @ 100 mls/hr 07/31/18 16:00 08/02/18 21:00 Levaquin 500 Mg Premix Inj IV.SIG Infused Q48H [facility] Infusion Meropenem 1,000 mg/ Sodium 100 mls @ 200 mls/hr 07/31/18 20:00 08/02/18 22:10 Chloride IV.SIG Infused Q12H [facility] Infusion Latanoprost 1 drop 07/22/18 21:00 08/02/18 21:08 Xalatan 0.005% Opth Drops EACH EYE 1 drop HS [facility] Administration Oxycodone HCl 5 mg 07/22/18 14:46 08/03/18 05:24 Roxicodone PO 5 mg Q4H PRN Administration breakthrough pain Oxycodone HCl 20 mg 08/01/18 20:00 08/02/18 20:47 Oxycontin Cr PO 20 mg Q12H [facility] Administration Tenofovir Disoproxil Fumarate 300 mg 07/24/18 09:00 08/01/18 09:43 Viread PO 300 mg EVERY OTHER DAY [facility] Administration Tolterodine Tartrate 4 mg 07/24/18 13:00 08/02/18 12:04 Detrol La PO 4 mg DAILY [facility] Administration Vitamin D 2,000 unit 07/25/18 09:00 08/02/18 09:41 Vitamin D3 PO 2,000 unit DAILY [facility] Administration Objective Remarks: GENERAL: Elderly male, laying in bed, not acutely distressed, awake, alert and oriented he appears to be chronically ill. Somewhat frail appearing. SKIN: Pale, warm and dry. HEAD: Normocephalic. EYES: Conjunctivae pale, no scleral icterus. No injection or drainage. NECK: Supple, trachea midline. No JVD or lymphadenopathy. LYMPHATIC: No adenopathy. CARDIOVASCULAR: Regular rate and rhythm without murmurs. RESPIRATORY: Breath sounds equal bilaterally. No accessory muscle use. GASTROINTESTINAL: Thin abdomen, soft, tenderness over the left lower quadrant, positive bowel sounds. EXTREMITIES: No cyanosis, pitting edema noted around the ankles and dependent portions of the leg. MUSCULOSKELETAL: Generally decreased muscle mass. NEUROLOGICAL: No obvious focal deficit. Awake, alert, and oriented x3. PSYCHIATRIC: Appropriate mood and affect; insight and judgment normal. Assessment/Plan - Plan Mr. Queen Is a 73-year-old man with a diagnosis of metastatic prostate carcinoma , he has had an excellent response to combination therapy consisting of leuprolide and Xtandi. His PSA levels have been less than 0.1 ng/dL over the past several months. He has extensive metastatic disease burden involving his axial skeleton especially his pelvis. Most recent PET CT scan revealed most of his previously active metastatic disease to be dormant, he however had intense hypermetabolic activity localized to the prostate and to the bladder. In late June he underwent cystoscopy for workup of hematuria with his former urologist Dr. Parmar, no obvious cause for hematuria was identified. He is now in the hospital with fevers, hematuria and pelvic pain. Clinically he has suspected prostatitis and is on broad-spectrum antibiotics with Zosyn and levofloxacin. Urine cultures and blood cultures are negative thus far other than forced staph epidermidis. CT scan of the abdomen/pelvis revealed no obvious cause for the hematuria. Recommendations: 1. Febrile illness: Spiked temperature of 101.5F last night, he is on levofloxacin and meropenem. All cultures negative. Etiology not known, suspected recurrent urinary tract infection. 2. Hematuria: Plans for suprapubic catheter placement for later today noted. Radiation simulation performed, likely start palliative radiation to the prostate later this afternoon. 3. Pain control, continue long and short acting opioids. Patient reports his pain is minimal so long as he is not passing large clots through his Engel catheter. And as long as his Engel catheter is not obstructed. 4. Metastatic prostate carcinoma, PSA less than 0.1, total testosterone 9.9, free testosterone 0.2. Xtandi has been on hold since he has been in the hospital. 5. Anemia, related to large volume hematuria, continue supportive red cell transfusions. CBC later today.
--- NOTE | 2018-08-03 08:41 | P.PNNP ---
Subjective Interval history: Hematuria appears to be resolving. Suprapubic catheter placement and XRT not done yesterday. Apparently scheduled for today. Physical Exam Vital signs: Vital Signs 08/02/18 12:00 08/02/18 12:33 08/02/18 15:51 Temperature 98.2 F 98.2 F 98.9 F Pulse Rate 89 96 H 81 Respiratory Rate 19 18 Blood Pressure 108/56 L 108/56 L 108/59 L Pulse Oximetry 96 96 96 08/02/18 16:00 08/02/18 16:09 08/02/18 16:10 Temperature 98.2 F Pulse Rate 80 Respiratory Rate 19 18 18 Blood Pressure 110/60 Pulse Oximetry 96 08/02/18 20:00 08/03/18 00:00 08/03/18 01:00 Temperature 98.3 F 101.4 F H 99.3 F Pulse Rate 87 85 Respiratory Rate 16 16 Blood Pressure 131/81 132/67 Pulse Oximetry 97 98 08/03/18 04:00 Temperature 97.3 F L Pulse Rate 74 Respiratory Rate 16 Blood Pressure 108/56 L Pulse Oximetry 97 Intake & Output 08/02/18 08/03/18 08/03/18 18:59 06:59 18:59 Intake Total 100 / 100 680 / 680 Balance 100 / 100 680 / 680 Weight 85.5 kg Intake: IV 100 / 100 200 / 200 Levaquin 500 mg Premix Inj 500 100 / 100 mg In 100 ml @ 100 mls/hr IV. SIG Q48H [facility] Rx#:[id number] Merrem Inj 1,000 MG In NS Inj 100 / 100 100 / 100 100 ML @ 200 mls/hr IV.SIG Q12H [facility] Rx#:[id number] Oral 480 / 480 Intake (Blood Product) Amt 0 / 0 0 / 0 Rbc As-3 Leukoreduced Unit 0 / 0 0 / 0 [id number] Rbc Cp2d Leukoreduced Unit 0 / 0 [id number] Other: Bladder Irrigation Fluid - Amount Instilled Indwelling Urethral Catheter 21,000 Bladder Irrigation Fluid - Amount Drained Indwelling Urethral Catheter 21,475 Date of Last Bowel Movement 08/02/18 Narrative: GENERAL: Alert, oriented 3, NAD. SKIN: Warm and dry. HEAD: Normocephalic. EYES: No scleral icterus. No injection or drainage. NECK: Supple, trachea midline. No JVD or lymphadenopathy. CARDIOVASCULAR: Regular rate and rhythm without murmurs, gallops, or rubs. RESPIRATORY: Breath sounds equal bilaterally. No accessory muscle use. GASTROINTESTINAL: Abdomen soft, tender to palpation in the lower abdomen, nondistended. MUSCULOSKELETAL: No cyanosis, or edema. Tender to palpation over lower extremities. : Engel cath bag has normal color urine BACK: Nontender without obvious deformity. No CVA tenderness. - Urinary Catheter Management Indwelling Urethral Catheter Cath placed during this visit: yes Reason for continuing: Gross Hematuria Insertion date: 07/29/18 Insertion time: 11:00 Assessment and Plan - Assessment (1) Acute on chronic kidney failure Code(s): N17.9 - Acute kidney failure, unspecified; N18.9 - Chronic kidney disease, unspecified Status: Acute Plan: patient's renal function is stable, improving. Monitor. Avoid nephrotoxic agents. Monitor urine output. (2) Gross hematuria Code(s): R31.0 - Gross hematuria Status: Acute Plan: Urology following. Possible bleeding from prostate. May have prostatitis. XRT is planned and suprapubic catheter placement is planned as well. (3) Prostate cancer metastatic to bone Code(s): C61 - Malignant neoplasm of prostate; C79.51 - Secondary malignant neoplasm of bone Status: Acute Plan: Hematology/Oncology note was reviewed. (4) Acute UTI Code(s): N39.0 - Urinary tract infection, site not specified Status: Acute Plan: Possible prostatitis. On antibiotic.
[2018-08-03] MEDS: Tenofovir 300 MG Tablet PO SCH (09:13)
[2018-08-03] MEDS: buPROPion 150 MG XL 24 HR Tablet PO SCH (09:14)
[2018-08-03] MEDS: oxyCODONE 10 MG Controlled Release Tablet PO SCH ×2 (09:18→20:33)
[2018-08-03] MEDS: Folic Acid 1 MG Tablet PO SCH (09:18)
[2018-08-03] MEDS: Gabapentin 300 MG Capsule PO SCH ×2 (09:18→20:34)
[2018-08-03] MEDS: Tolterodine Tartrate LA 4 MG Capsule PO SCH (09:18)
[2018-08-03] MEDS: Docusate Sodium 100 MG Capsule PO SCH ×3 (09:19→20:06)
[2018-08-03 10:05] LABS: Hemoglobin 8.9 gm/dL (13.0-17.0); Mean Corpuscular HGB Conc 34.2 % (32.0-36.0); Mean Corpuscular Volume 90.6 fL (80.0-100.0); Mean Platelet Volume 6.7 fL (7.0-11.0); Platelet Count 292 th/mm3 (150-450); Red Blood Count 2.87 mil/mm3 (4.50-5.90); White Blood Count 5.9 th/mm3 (4.0-11.0)
[2018-08-03] MEDS: HYDROmorphone PF Inj 2 MG/ML Vial IV.PUSH PRN ×2 (11:44→20:04)
[2018-08-03] MEDS ORDERED: Lidocaine 1% Inj 50 ML Vial ONE (12:56)
[2018-08-03] MEDS ORDERED: Lidocaine PF 1% Inj 5 ML Syringe OTHER ONE (13:45)
[2018-08-03] MEDS ORDERED: Phenylephrine/NS 1000 MCG/10ML Syringe IV.PUSH ONE (13:45)
[2018-08-03] MEDS ORDERED: *Meperidine Inj 25 MG/ML Vial PERIprocedural Use ONLY ONE (15:24)
[2018-08-03] MEDS ORDERED: fentaNYL Citrate Inj 100 MCG/2 ML Ampul ONE (15:32)
--- NOTE | 2018-08-03 15:38 | P.OP ---
- Preoperative Diagnosis (1) Atonic bladder (2) Prostate cancer metastatic to bone (3) Gross hematuria - Postoperative Diagnosis (1) Prostate cancer metastatic to bone (2) Gross hematuria (3) Atonic bladder Date of procedure: 08/03/18 Procedure: Cystoscopy with placement of suprapubic tube, cystogram Anesthesia: other (General LMA) Surgeon: Aakash Miranda DO Estimated blood loss (mL): 50 Operation and Findings: 73-year-old male with history of metastatic prostate cancer with ongoing gross hematuria and a history of an atonic bladder requiring clean intermittent catheterization. Due to the fact that the patient still is having gross hematuria and bleeding from his prostate, the decision made to place a suprapubic tube catheter. This will eliminate the need to undergo clean intermittent catheterization in the future and hopefully will eliminate possible future bleeding. Risk and benefits were discussed with the family and they were willing to proceed. Patient was brought to the operating room and identified by myself as Servando Queen. He is placed in dorsal lithotomy position , prepped and draped in sterile fashion, received preprocedure antibiotics and general LMA anesthesia was administered. Flexible cystoscope was inserted into the prostatic urethra and no bleeding was identified. No active bleeding was identified. The lousy retractor was inserted into the bladder and initially I was unable to palpate the lousy retractor. A Engel catheter was inserted and cystogram was performed demonstrating no evidence of any extravasation. The outline of the bladder was identified. The lousy retractor was reinserted and it was palpated for fingerbreadths above the symphysis pubis. Using the Bovie cautery, incision was made over the lousy retractor and it was then brought through the fascia. A 22 [place] Engel catheter was then grasped by the lousy retractor and brought into the bladder. 5 cc were then inflated into the balloon. It irrigated freely. Decision was then made to reinsert a 24 [place] three-way Engel catheter and continue him on continuous bladder irrigation with Amicar. The suprapubic tube catheter was anchored with 2-0 silk sutures. The patient was then awoken and extubated and transferred recovery in stable condition.
--- NOTE | 2018-08-03 15:43 | P.PNADD ---
Addendum to Inpatient Note Additional information: Attempted to see Mr. Queen twice. Patient is off the floor - in the OR. Will attempt to see him later today or see him in the AM.
[2018-08-03] MEDS: Calcium Carbonate 500 MG Tablet PO SCH ×2 (20:10→20:33)
[2018-08-03] MEDS: Latanoprost 0.005% Opth Drops 2.5 ML Bottle EACH EYE SCH (21:09)
--- NOTE | 2018-08-03 22:42 | P.PN ---
Subjective Interval history: Follow up for hematuria, metastatic prostate cancer. Patient returned from surgery, currently resting in bed, preparing to eat dinner. No fever, chills but overnight had a fever of 101.4F. Physical Exam Vital signs: Vital Signs 08/03/18 00:00 08/03/18 01:00 08/03/18 04:00 Temperature 101.4 F H 99.3 F 97.3 F L Pulse Rate 85 74 Respiratory Rate 16 16 Blood Pressure 132/67 108/56 L Pulse Oximetry 98 97 08/03/18 08:00 08/03/18 12:00 08/03/18 15:24 Temperature 98 F 97.2 F L 97.3 F L Pulse Rate 72 72 91 H Respiratory Rate 18 18 Blood Pressure 102/57 L 111/58 L 111/71 Pulse Oximetry 100 08/03/18 15:30 08/03/18 15:45 08/03/18 16:00 Temperature Pulse Rate 88 84 66 Respiratory Rate 14 15 15 Blood Pressure 145/75 H 127/64 138/67 Pulse Oximetry 92 L 100 100 08/03/18 16:45 08/03/18 17:12 08/03/18 19:00 Temperature 99.3 F Pulse Rate 84 Respiratory Rate 18 Blood Pressure 116/53 L Pulse Oximetry 100 93 L 08/03/18 19:17 08/03/18 20:00 Temperature 99.3 F Pulse Rate 95 H Respiratory Rate 18 16 Blood Pressure 115/64 Pulse Oximetry 100 Intake & Output 08/03/18 08/03/18 08/04/18 06:59 18:59 06:59 Intake Total 680 / 680 900 / 900 100 / 100 Output Total 20 Balance 680 / 680 880 / 880 100 / 100 Weight 85.5 kg Intake: IV 200 / 200 100 / 100 100 / 100 Levaquin 500 mg Premix Inj 500 100 / 100 mg In 100 ml @ 100 mls/hr IV. SIG Q48H [facility] Rx#:[id number] Merrem Inj 1,000 MG In NS Inj 100 / 100 100 / 100 100 / 100 100 ML @ 200 mls/hr IV.SIG Q12H [facility] Rx#:[id number] Oral 480 / 480 Anesthesia Amount 800 / 800 Intake (Blood Product) Amt 0 / 0 Rbc As-3 Leukoreduced Unit 0 / 0 [id number] Output: Estimated Blood Loss 20 / 20 Other: Bladder Irrigation Fluid - Amount Instilled 3-way Urethral 300 Indwelling Urethral Catheter 21,000 Bladder Irrigation Fluid - Amount Drained 3-way Urethral 300 Indwelling Urethral Catheter 21,475 Date of Last Bowel Movement 08/02/18 08/03/18 08/03/18 Narrative: GENERAL: Alert, oriented 3, NAD. SKIN: Warm and dry. HEAD: Normocephalic. EYES: No scleral icterus. No injection or drainage. NECK: Supple, trachea midline. No JVD or lymphadenopathy. CARDIOVASCULAR: Regular rate and rhythm without murmurs, gallops, or rubs. RESPIRATORY: Breath sounds equal bilaterally. No accessory muscle use. GASTROINTESTINAL: Abdomen soft, tender to palpation in the lower abdomen, nondistended. MUSCULOSKELETAL: No cyanosis, or edema. Tender to palpation over lower extremities. : Engel cath bag has normal color urine BACK: Nontender without obvious deformity. No CVA tenderness. - Urinary Catheter Management Indwelling Urethral Catheter Cath placed during this visit: yes Reason for continuing: Gross Hematuria Insertion date: 07/29/18 Insertion time: 11:00 Suprapubic Cath placed during this visit: yes Reason for continuing: Gross Hematuria Insertion date: 08/03/18 3-way Urethral Cath placed during this visit: yes Insertion date: 08/03/18 Results - Labs CBC & Chem 7: 08/03/18 09:27 08/03/18 06:04 Laboratory Results - last 24 hr 08/02/18 08/03/18 08/03/18 08:45 06:04 09:27 WBC 5.9 RBC 2.87 L Hgb 8.9 L Hct 26.0 L MCV 90.6 MCH 31.0 MCHC 34.2 RDW 16.0 Plt Count 292 MPV 6.7 L Sodium 140 Potassium 3.7 Chloride 106 Carbon Dioxide 26.5 Anion Gap 8 BUN 23 H Creatinine 2.19 H Estimated GFR 29 L Random Glucose 106 Calcium 6.8 L* Phosphorus 2.6 Albumin 1.7 L MTS Gel Crossmatch See Detail Microbiology 08/02/18 00:55 Blood - Peripheral Aerobic Blood Culture - Preliminary No growth in 1 day 08/02/18 00:55 Blood - Peripheral Anaerobic Blood Culture - Preliminary No growth in 1 day 08/02/18 01:00 Blood - Peripheral Aerobic Blood Culture - Preliminary No growth in 1 day 08/02/18 01:00 Blood - Peripheral Anaerobic Blood Culture - Preliminary No growth in 1 day 07/30/18 07:50 Blood - Peripheral Aerobic Blood Culture - Preliminary No growth in 4 days 07/30/18 07:50 Blood - Peripheral Anaerobic Blood Culture - Preliminary No growth in 4 days 07/30/18 07:54 Blood - Peripheral Aerobic Blood Culture - Preliminary No growth in 4 days 07/30/18 07:54 Blood - Peripheral Anaerobic Blood Culture - Preliminary No growth in 4 days - Procedures 08/03/2018 Cystoscopy with placement of suprapubic tube, cystogram 07/29/2018 Cystoscopy with fulguration of prostate bleeding Assessment and Plan - Assessment (1) Acute UTI Code(s): N39.0 - Urinary tract infection, site not specified Status: Acute (2) Prostate cancer metastatic to bone Code(s): C61 - Malignant neoplasm of prostate; C79.51 - Secondary malignant neoplasm of bone Status: Acute - Plan Mr. Queen is a pleasant 73-year-old male with a history of metastatic prostate carcinoma who was admitted to the hospital due to fever, hematuria and pelvic pain. Infectious disease as well as oncology and urology have been following patient. Patient is currently on levofloxacin and Zosyn for suspected prostatitis. Acute prostatitis -Continue levofloxacin 500 mg Q48hrs. Infectious disease added meropenem and micafungin. -Follow blood culture and urine cultures. Persistent hematuria Bilateral hydronephrosis on ultrasound left greater than right -Patient underwent surgical intervention on 07/29/2018. -Radiation oncology is planning treatments. -Suprapubic catheter placement on 08/03/2018. -Continue CBI with Amicar. Acute post-hemorrhagic anemia due to Genitourinary tract bleeding. -Two units of PRBCs on 08/02/2018. Metastatic prostate carcinoma -Oncology is following. Patient is has had good response to leuprolide and Enzalutamide (Xtandi). -Continue oxycodone for pain control. Continue long-acting OxyContin 20 mg twice daily. Hypocalcemia Acute kidney injury on Chronic kidney disease -Nephrology is following. Creatinine hovering around 2.2-2.3. -Received 1g Calcium Gluconate. Ca is 7.6. Full code. Ambulation. Pharmacological DVT prophylaxis contraindicated at this point. Discharge plan: Difficult discharge due to persistent/recurrent hematuria. If hematuria resolves, patient can likely be discharged in the next 24-48 hours ( by Tuesday08/05/2018). Patient is eager to go home.
[2018-08-04] MEDS: HYDROmorphone PF Inj 2 MG/ML Vial IV.PUSH PRN ×2 (02:20→23:23)
[2018-08-04] MEDS: diazePAM 5 MG Tablet PO PRN ×2 (02:25→23:23)
--- NOTE | 2018-08-04 07:49 | P.PNONC ---
Subjective Interval history: Patient was seen and examined this morning, vital signs, labs, medications, microbiology, program consultant notes, procedure notes were all reviewed. He has been afebrile for more than the past 24 hours. Yesterday he was taken to the operating room and underwent placement of suprapubic bladder catheter. He continues to have a Engel catheter for bladder irrigation in place. The current set up is that of irrigation going in via the suprapubic catheter, drainage is coming out via the Engel catheter. The urine has been slightly pinkish overnight. No overt or gross hematuria the likes of which she was having previously. This morning; the patient reports feeling more comfortable. He reports his abdominal pain is improved. He tells me he is looking forward to getting up and walking if he is allowed to. Objective Vital Signs/Intake & Output: Vital Signs 08/03/18 08:00 08/03/18 12:00 08/03/18 15:24 Temperature 98 F 97.2 F L 97.3 F L Pulse Rate 72 72 91 H Respiratory Rate 18 18 Blood Pressure 102/57 L 111/58 L 111/71 Pulse Oximetry 100 08/03/18 15:30 08/03/18 15:45 08/03/18 16:00 Temperature Pulse Rate 88 84 66 Respiratory Rate 14 15 15 Blood Pressure 145/75 H 127/64 138/67 Pulse Oximetry 92 L 100 100 08/03/18 16:45 08/03/18 17:12 08/03/18 19:00 Temperature 99.3 F Pulse Rate 84 Respiratory Rate 18 Blood Pressure 116/53 L Pulse Oximetry 100 93 L 08/03/18 19:17 08/03/18 20:00 08/03/18 23:49 Temperature 99.3 F Pulse Rate 95 H 95 H Respiratory Rate 18 16 Blood Pressure 115/64 Pulse Oximetry 100 08/03/18 23:50 08/04/18 02:48 08/04/18 03:09 Temperature 98.4 F Pulse Rate 97 H 79 Respiratory Rate 16 16 Blood Pressure 135/69 Pulse Oximetry 97 08/04/18 04:00 Temperature 98.2 F Pulse Rate 98 H Respiratory Rate 16 Blood Pressure 116/57 L Pulse Oximetry 97 Intake & Output 08/03/18 08/04/18 08/04/18 18:59 06:59 18:59 Intake Total 900 / 900 820 / 820 Output Total 20 / 20 Balance 880 / 880 820 / 820 Weight 85.4 kg Intake: IV 100 / 100 100 / 100 Merrem Inj 1,000 MG In NS Inj 100 / 100 100 / 100 100 ML @ 200 mls/hr IV.SIG Q12H [facility] Rx#:[id number] Oral 720 / 720 Anesthesia Amount 800 / 800 Output: Estimated Blood Loss Other: Bladder Irrigation Fluid - Amount Instilled 3-way Urethral 300 Suprapubic 6,900 Bladder Irrigation Fluid - Amount Drained 3-way Urethral 300 Suprapubic 6,775 Date of Last Bowel Movement 08/03/18 08/03/18 Result Diagrams: 08/03/18 09:27 08/03/18 06:04 Laboratory Results: Laboratory Results - last 24 hr 08/03/18 09:27 WBC 5.9 RBC 2.87 L Hgb 8.9 L Hct 26.0 L MCV 90.6 MCH 31.0 MCHC 34.2 RDW 16.0 Plt Count 292 MPV 6.7 L Culture Results: Microbiology 08/02/18 00:55 Aerobic Blood Culture - Preliminary Blood - Peripheral No growth in 1 day Anaerobic Blood Culture - Preliminary No growth in 1 day 08/02/18 01:00 Aerobic Blood Culture - Preliminary Blood - Peripheral No growth in 1 day Anaerobic Blood Culture - Preliminary No growth in 1 day 07/30/18 07:50 Aerobic Blood Culture - Preliminary Blood - Peripheral No growth in 4 days Anaerobic Blood Culture - Preliminary No growth in 4 days 07/30/18 07:54 Aerobic Blood Culture - Preliminary Blood - Peripheral No growth in 4 days Anaerobic Blood Culture - Preliminary No growth in 4 days 07/30/18 11:55 Urine Culture - Final Catheterized Urine No growth in 48 hours Medications: Active Medications Generic Name Dose Route Start Last Admin Trade Name Freq PRN Reason Stop Dose Admin Acetaminophen 650 mg 07/22/18 13:55 08/02/18 23:41 Tylenol PO 650 mg Q4H PRN Administration fever Acetaminophen 650 mg 07/29/18 08:29 08/01/18 20:35 Tylenol PO 650 mg Q4H PRN Administration SEE LABEL COMMENTS Belladonna Alkaloids/Opium 60 mg 08/02/18 15:30 08/02/18 23:41 B & O Supp RECTAL 60 mg Q6HR PRN Administration BLADDER SPASM Bupropion HCl 150 mg 07/22/18 14:00 08/03/18 09:14 Wellbutrin Xl PO 150 mg DAILY [facility] Administration Sodium Chloride 3,000 ml/ 0 ml 07/29/18 23:03 08/02/18 05:52 Aminocaproic Acid 3,000 mg IRRIGATION 3,000 irrig.soln Q24H PRN Administration TO KEEP URINE CLEAR Diazepam 5 mg 07/22/18 13:57 08/04/18 02:25 Valium PO 5 mg DAILY PRN Administration Anxiety Docusate Sodium 100 mg 07/25/18 15:45 08/03/18 20:06 Colace PO Not Given TID [facility] Folic Acid 1 mg 07/24/18 12:00 08/03/18 09:18 Folic Acid PO 1 mg DAILY [facility] Administration Gabapentin 300 mg 07/23/18 21:00 08/03/18 20:34 Neurontin PO 300 mg BID [facility] Administration Hydromorphone HCl 0.5 mg 07/26/18 19:30 08/04/18 02:20 Dilaudid Pf Inj IV.PUSH 0.5 mg Q4H PRN Administration BREAKTHROUGH PAIN Levofloxacin/Dextrose 500 mg in 100 mls @ 100 mls/hr 07/31/18 16:00 08/02/18 21:00 Levaquin 500 Mg Premix Inj IV.SIG Infused Q48H [facility] Infusion Meropenem 1,000 mg/ Sodium 100 mls @ 200 mls/hr 07/31/18 20:00 08/03/18 21:20 Chloride IV.SIG Infused Q12H [facility] Infusion Latanoprost 1 drop 07/22/18 21:00 08/03/18 21:09 Xalatan 0.005% Opth Drops EACH EYE 1 drop HS [facility] Administration Oxycodone HCl 5 mg 07/22/18 14:46 08/03/18 05:24 Roxicodone PO 5 mg Q4H PRN Administration breakthrough pain Oxycodone HCl 20 mg 08/01/18 20:00 08/03/18 20:33 Oxycontin Cr PO 20 mg Q12H [facility] Administration Tenofovir Disoproxil Fumarate 300 mg 07/24/18 09:00 08/03/18 09:13 Viread PO 300 mg EVERY OTHER DAY [facility] Administration Tolterodine Tartrate 4 mg 07/24/18 13:00 08/03/18 09:18 Detrol La PO 4 mg DAILY [facility] Administration Vitamin D 2,000 unit 07/25/18 09:00 08/03/18 09:18 Vitamin D3 PO 2,000 unit DAILY [facility] Administration Objective Remarks: GENERAL: Elderly male, laying in bed, not acutely distressed, awake, alert and oriented he appears to be chronically ill. Somewhat frail appearing. SKIN: Pale, warm and dry. HEAD: Normocephalic. EYES: Conjunctivae pale, no scleral icterus. No injection or drainage. NECK: Supple, trachea midline. No JVD or lymphadenopathy. LYMPHATIC: No adenopathy. CARDIOVASCULAR: Regular rate and rhythm without murmurs. RESPIRATORY: Breath sounds equal bilaterally. No accessory muscle use. GASTROINTESTINAL: Thin abdomen, soft, tenderness over the left lower quadrant, positive bowel sounds. Now with suprapubic catheter in place. Continues to have a Engel catheter in place. EXTREMITIES: No cyanosis, pitting edema noted around the ankles and dependent portions of the leg. MUSCULOSKELETAL: Generally decreased muscle mass. NEUROLOGICAL: No obvious focal deficit. Awake, alert, and oriented x3. PSYCHIATRIC: Appropriate mood and affect; insight and judgment normal. Assessment/Plan - Plan Mr. Queen Is a 73-year-old man with a diagnosis of metastatic prostate carcinoma , he has had an excellent response to combination therapy consisting of leuprolide and Xtandi. His PSA levels have been less than 0.1 ng/dL over the past several months. He has extensive metastatic disease burden involving his axial skeleton especially his pelvis. Most recent PET CT scan revealed most of his previously active metastatic disease to be dormant, he however had intense hypermetabolic activity localized to the prostate and to the bladder. In late June he underwent cystoscopy for workup of hematuria with his former urologist Dr. Parmar, no obvious cause for hematuria was identified. He is now in the hospital with fevers, hematuria and pelvic pain. Clinically he has suspected prostatitis and is on broad-spectrum antibiotics with Zosyn and levofloxacin. Urine cultures and blood cultures are negative thus far other than forced staph epidermidis. CT scan of the abdomen/pelvis revealed no obvious cause for the hematuria. Recommendations: 1. Febrile illness: Afebrile over the past 24 hours. All cultures remain negative. He remains on meropenem and levofloxacin. 2. Hematuria: Now status post suprapubic catheter placement. He remains on bladder irrigation with Amicar solution. Hematuria is well controlled at the present time. Plans now to proceed with external beam radiation targeting the prostate. 3. Pain control, continue long and short acting opioids. Patient feels comfortable at this time. 4. Metastatic prostate carcinoma, PSA less than 0.1, total testosterone 9.9, free testosterone 0.2. Xtandi has been on hold since he has been in the hospital. Resume Xtandi upon discharge from hospital. 5. Anemia, CBC on blood work drawn on 08/03/2018 indicates hemoglobin of greater than 8.5 g/dL. This is stable. Repeat CBC ordered for the morning of . Supportive transfusions as needed.
[2018-08-04] MEDS: Gabapentin 300 MG Capsule PO SCH ×2 (08:37→20:27)
[2018-08-04] MEDS: Calcium Carbonate 500 MG Tablet PO SCH ×2 (08:37→20:26)
[2018-08-04] MEDS: Docusate Sodium 100 MG Capsule PO SCH ×3 (08:37→18:36)
[2018-08-04] MEDS: Folic Acid 1 MG Tablet PO SCH (08:37)
[2018-08-04] MEDS: buPROPion 150 MG XL 24 HR Tablet PO SCH (08:37)
[2018-08-04] MEDS: oxyCODONE 10 MG Controlled Release Tablet PO SCH ×2 (08:38→20:26)
[2018-08-04] MEDS: Tolterodine Tartrate LA 4 MG Capsule PO SCH (08:38)
--- NOTE | 2018-08-04 09:11 | P.PNURO ---
Subjective Patient symptoms today: Pt seen and examined. Feels well. Urine clearing. Objective Vital Signs: Vital Signs 08/03/18 12:00 08/03/18 15:24 08/03/18 15:30 Temperature 97.2 F L 97.3 F L Pulse Rate 72 91 H 88 Respiratory Rate 18 14 Blood Pressure 111/58 L 111/71 145/75 H Pulse Oximetry 100 92 L 08/03/18 15:45 08/03/18 16:00 08/03/18 16:45 Temperature Pulse Rate 84 66 84 Respiratory Rate 15 15 18 Blood Pressure 127/64 138/67 116/53 L Pulse Oximetry 100 100 100 08/03/18 17:12 08/03/18 19:00 08/03/18 19:17 Temperature 99.3 F Pulse Rate Respiratory Rate 18 Blood Pressure Pulse Oximetry 93 L 08/03/18 20:00 08/03/18 23:49 08/03/18 23:50 Temperature 99.3 F 98.4 F Pulse Rate 95 H 95 H 97 H Respiratory Rate 16 16 Blood Pressure 115/64 135/69 Pulse Oximetry 100 97 08/04/18 02:48 08/04/18 03:09 08/04/18 04:00 Temperature 98.2 F Pulse Rate 79 98 H Respiratory Rate 16 16 Blood Pressure 116/57 L Pulse Oximetry 97 Intake & Output 08/03/18 08/04/18 08/04/18 18:59 06:59 18:59 Intake Total 900 / 900 820 / 820 Output Total 20 / 20 Balance 880 / 880 820 / 820 Weight 85.4 kg Intake: IV 100 / 100 100 / 100 Merrem Inj 1,000 MG In NS Inj 100 / 100 100 / 100 100 ML @ 200 mls/hr IV.SIG Q12H [facility] Rx#:[id number] Oral 720 / 720 Anesthesia Amount 800 / 800 Output: Estimated Blood Loss 20 / 20 Other: Bladder Irrigation Fluid - Amount Instilled 3-way Urethral 300 Suprapubic 6,900 Bladder Irrigation Fluid - Amount Drained 3-way Urethral 300 Suprapubic 6,775 Date of Last Bowel Movement 08/03/18 08/03/18 Result Diagrams: 08/03/18 09:27 08/03/18 06:04 Medications and IVs: Active Medications Generic Name Dose Route Start Last Admin Trade Name Freq PRN Reason Stop Dose Admin Acetaminophen 650 mg 07/22/18 13:55 08/02/18 23:41 Tylenol PO 650 mg Q4H PRN Administration fever Acetaminophen 650 mg 07/29/18 08:29 08/01/18 20:35 Tylenol PO 650 mg Q4H PRN Administration SEE LABEL COMMENTS Belladonna Alkaloids/Opium 60 mg 08/02/18 15:30 08/02/18 23:41 B & O Supp RECTAL 60 mg Q6HR PRN Administration BLADDER SPASM Bupropion HCl 150 mg 07/22/18 14:00 08/04/18 08:37 Wellbutrin Xl PO 150 mg DAILY [facility] Administration Sodium Chloride 3,000 ml/ 0 ml 07/29/18 23:03 08/02/18 05:52 Aminocaproic Acid 3,000 mg IRRIGATION 3,000 irrig.soln Q24H PRN Administration TO KEEP URINE CLEAR Diazepam 5 mg 07/22/18 13:57 08/04/18 02:25 Valium PO 5 mg DAILY PRN Administration Anxiety Docusate Sodium 100 mg 07/25/18 15:45 08/04/18 08:37 Colace PO 100 mg TID [facility] Administration Folic Acid 1 mg 07/24/18 12:00 08/04/18 08:37 Folic Acid PO 1 mg DAILY [facility] Administration Gabapentin 300 mg 07/23/18 21:00 08/04/18 08:37 Neurontin PO 300 mg BID [facility] Administration Hydromorphone HCl 0.5 mg 07/26/18 19:30 08/04/18 02:20 Dilaudid Pf Inj IV.PUSH 0.5 mg Q4H PRN Administration BREAKTHROUGH PAIN Levofloxacin/Dextrose 500 mg in 100 mls @ 100 mls/hr 07/31/18 16:00 08/02/18 21:00 Levaquin 500 Mg Premix Inj IV.SIG Infused Q48H [facility] Infusion Meropenem 1,000 mg/ Sodium 100 mls @ 200 mls/hr 07/31/18 20:00 08/04/18 08:39 Chloride IV.SIG 200 mls/hr Q12H [facility] Administration Latanoprost 1 drop 07/22/18 21:00 08/03/18 21:09 Xalatan 0.005% Opth Drops EACH EYE 1 drop HS [facility] Administration Miscellaneous Information 0 each 08/03/18 15:34 [facility] OTHER 08/04/18 15:33 UNSCH PRN SEE LABEL COMMENTS Oxycodone HCl 5 mg 07/22/18 14:46 08/03/18 05:24 Roxicodone PO 5 mg Q4H PRN Administration breakthrough pain Oxycodone HCl 20 mg 08/01/18 20:00 08/04/18 08:38 Oxycontin Cr PO 20 mg Q12H [facility] Administration Pom: (Lubiprostone [ 0 each 07/22/18 21:00 Amitiza] 24 Mcg) PO BID [facility] Tenofovir Disoproxil Fumarate 300 mg 07/24/18 09:00 08/03/18 09:13 Viread PO 300 mg EVERY OTHER DAY [facility] Administration Tolterodine Tartrate 4 mg 07/24/18 13:00 08/04/18 08:38 Detrol La PO 4 mg DAILY [facility] Administration Vitamin D 2,000 unit 07/25/18 09:00 08/04/18 08:36 Vitamin D3 PO 2,000 unit DAILY [facility] Administration Objective Remarks: IVONNE RRR Clear lungs Palacios is in place, urine is light pink 07/27 Abd:soft,nt,nd [place] on CBI; now with pink urine; clots cleared. 07/28 Abd:soft,nt, nd [place]ios with clear urine. 07/29 Abd:soft,nt,nd [place] with gross hematuria with clots. 07/30 Abd:soft,nt,nd [place]acios; now clear. 07/31 Abd:soft,nt,nd Palacios; now clear. 08/01 Abd:soft,nt,nd Palacios; now clear. 08/02 Abd:soft,nt,nd [place]: clear. 08/04 Abd:soft,nt,nd [place]: clear. Assessment and Plan - Plan 73y.o M with other medical issues listed in HPI Urology consulted for hematuria, which is resolving now No additional recommendations, same as below - Continue care as per primary team - No acute intervention needed - Hematuria can be related to self cath and UTI as well as to previous radiation. - Continue current treatment, follow ID recommendations - Manual irrigation of the bladder may help to get rid of bladder clots/debris seen in the bladder on Sono. Do it BID - Pt to see his urologist after d/c for further management, may need cysto as outpt. 07/27/18 73 y.o male with metastatic CaP with gross hematuria 24F 3-way palacios in place; clots irrigated and CBI started Hold SQ Heparin; will order SCD's instead Will need cystoscopy at later date and may need HBO as outpt to help RX Radiation cystitis Will follow. 07/28 73 y.o male with metastatic CaP with gross hematuria 24F 3-way palacios in place; urine now clear Cysto as outpt. 07/29 73 y.o male with metastatic CaP with gross hematuria Will need cysto with fulguration of bleeding in OR today Continue NPO. 07/30 73 y.o male with metastatic CaP with gross hematuria Continue supportive measures/transfusion/Amicar CBI To d/w Radiation oncology tomorrow. D/W Dr. Gant 07/31 73 y.o male with metastatic CaP with gross hematuria Continue supportive measures/transfusion/Amicar CBI Possible XRT therapy for control of bleeding. 08/01 73 y.o male with metastatic CaP with gross hematuria Urine now clearing on Amicar CBI XRT to start soon For SP tube insertion on . 08/02 73 y.o male with metastatic CaP with gross hematuria Urine now clearing on Amicar CBI XRT to start soon For SP tube insertion tomorrow. 08/04 Stable s/p SP tube insertion Continue CBI over the weekend Hopeful void trial Tuesday AM if urine remains clear.
--- NOTE | 2018-08-04 10:25 | P.PN ---
Subjective Interval history: Follow up for hematuria, metastatic prostate cancer. Patient is doing better today. He continues to have CBI. Urine appears to be clearing up. No fever or chills. Physical Exam Vital signs: Vital Signs 08/03/18 12:00 08/03/18 15:24 08/03/18 15:30 Temperature 97.2 F L 97.3 F L Pulse Rate 72 91 H 88 Respiratory Rate 18 14 Blood Pressure 111/58 L 111/71 145/75 H Pulse Oximetry 100 92 L 08/03/18 15:45 08/03/18 16:00 08/03/18 16:45 Temperature Pulse Rate 84 66 84 Respiratory Rate 15 15 18 Blood Pressure 127/64 138/67 116/53 L Pulse Oximetry 100 100 100 08/03/18 17:12 08/03/18 19:00 08/03/18 19:17 Temperature 99.3 F Pulse Rate Respiratory Rate 18 Blood Pressure Pulse Oximetry 93 L 08/03/18 20:00 08/03/18 23:49 08/03/18 23:50 Temperature 99.3 F 98.4 F Pulse Rate 95 H 95 H 97 H Respiratory Rate 16 16 Blood Pressure 115/64 135/69 Pulse Oximetry 100 97 08/04/18 02:48 08/04/18 03:09 08/04/18 04:00 Temperature 98.2 F Pulse Rate 79 98 H Respiratory Rate 16 16 Blood Pressure 116/57 L Pulse Oximetry 97 08/04/18 08:00 Temperature 98.1 F Pulse Rate 68 Respiratory Rate 16 Blood Pressure 102/54 L Pulse Oximetry 96 Intake & Output 08/03/18 08/04/18 08/04/18 18:59 06:59 18:59 Intake Total 900 / 900 820 / 820 Output Total Balance 880 / 880 820 / 820 Weight 85.4 kg Intake: IV 100 / 100 100 / 100 Merrem Inj 1,000 MG In NS Inj 100 / 100 100 / 100 100 ML @ 200 mls/hr IV.SIG Q12H [facility] Rx#:[id number] Oral 720 / 720 Anesthesia Amount 800 / 800 Output: Estimated Blood Loss Other: Bladder Irrigation Fluid - Amount Instilled 3-way Urethral 300 Suprapubic 6,900 Bladder Irrigation Fluid - Amount Drained 3-way Urethral 300 Suprapubic 6,775 Date of Last Bowel Movement 08/03/18 08/03/18 08/03/18 Narrative: GENERAL: Alert, oriented 3, NAD. SKIN: Warm and dry. HEAD: Normocephalic. EYES: No scleral icterus. No injection or drainage. NECK: Supple, trachea midline. No JVD or lymphadenopathy. CARDIOVASCULAR: Regular rate and rhythm without murmurs, gallops, or rubs. RESPIRATORY: Breath sounds equal bilaterally. No accessory muscle use. GASTROINTESTINAL: Abdomen soft, tender to palpation in the lower abdomen, nondistended. MUSCULOSKELETAL: No cyanosis, or edema. Tender to palpation over lower extremities. : Engel cath bag has normal color urine BACK: Nontender without obvious deformity. No CVA tenderness. - Urinary Catheter Management Indwelling Urethral Catheter Cath placed during this visit: yes Reason for continuing: Gross Hematuria Insertion date: 07/29/18 Insertion time: 11:00 Suprapubic Cath placed during this visit: yes Reason for continuing: Gross Hematuria Insertion date: 08/03/18 3-way Urethral Cath placed during this visit: yes Reason for continuing: Gross Hematuria Insertion date: 08/03/18 Results - Labs CBC & Chem 7: 08/03/18 09:27 08/03/18 06:04 Microbiology 08/02/18 00:55 Blood - Peripheral Aerobic Blood Culture - Preliminary No growth in 1 day 08/02/18 00:55 Blood - Peripheral Anaerobic Blood Culture - Preliminary No growth in 1 day 08/02/18 01:00 Blood - Peripheral Aerobic Blood Culture - Preliminary No growth in 1 day 08/02/18 01:00 Blood - Peripheral Anaerobic Blood Culture - Preliminary No growth in 1 day 07/30/18 07:50 Blood - Peripheral Aerobic Blood Culture - Preliminary No growth in 4 days 07/30/18 07:50 Blood - Peripheral Anaerobic Blood Culture - Preliminary No growth in 4 days 07/30/18 07:54 Blood - Peripheral Aerobic Blood Culture - Preliminary No growth in 4 days 07/30/18 07:54 Blood - Peripheral Anaerobic Blood Culture - Preliminary No growth in 4 days - Procedures 08/03/2018 Cystoscopy with placement of suprapubic tube, cystogram 07/29/2018 Cystoscopy with fulguration of prostate bleeding Assessment and Plan - Assessment (1) Acute UTI Code(s): N39.0 - Urinary tract infection, site not specified Status: Acute (2) Prostate cancer metastatic to bone Code(s): C61 - Malignant neoplasm of prostate; C79.51 - Secondary malignant neoplasm of bone Status: Acute - Plan Mr. Queen is a pleasant 73-year-old male with a history of metastatic prostate carcinoma who was admitted to the hospital due to fever, hematuria and pelvic pain. Infectious disease as well as oncology and urology have been following patient. Patient is currently on levofloxacin and Zosyn for suspected prostatitis. Acute prostatitis -Continue levofloxacin 500 mg Q48hrs. Infectious disease added meropenem. -Blood cx negative. Urine cx from 07/22/2018 showed Staph Epi. Persistent hematuria Bilateral hydronephrosis on ultrasound left greater than right -Radiation oncology is planning treatments. -Suprapubic catheter placement on 08/03/2018. -Continue CBI with Amicar. Urology will likely try voiding trial on 2017. Acute post-hemorrhagic anemia due to Genitourinary tract bleeding. -Two units of PRBCs on 08/02/2018. Metastatic prostate carcinoma -Oncology is following. Patient is has had good response to leuprolide and Enzalutamide (Xtandi). -Continue oxycodone for pain control. Continue long-acting OxyContin 20 mg twice daily. Hypocalcemia Acute kidney injury on Chronic kidney disease -Nephrology is following. Creatinine hovering around 2.2-2.3. -Received 1g Calcium Gluconate. Ca is 7.6. -CBC, BMP in the AM. Full code. Ambulation. Pharmacological DVT prophylaxis contraindicated at this point. Discharge plan: Difficult discharge due to persistent/recurrent hematuria. Voiding trial on 08/07/2018. Possible discharge early next week.
[2018-08-04] MEDS: Levofloxacin 500 mg Premix Inj 500 MG/100 ML PIGGYBACK IV.SIG SCH (16:05)
--- NOTE | 2018-08-04 16:45 | P.PNNP ---
Subjective Interval history: Patient had suprapubic catheter placed. There was some leaking of irrigant fluid due to CBI. He continues to have urethral catheter as well. Urine is draining via urethral catheter Physical Exam Vital signs: Vital Signs 08/03/18 16:45 08/03/18 17:12 08/03/18 19:00 Temperature 99.3 F Pulse Rate 84 Respiratory Rate 18 Blood Pressure 116/53 L Pulse Oximetry 100 93 L 08/03/18 19:17 08/03/18 20:00 08/03/18 23:49 Temperature 99.3 F Pulse Rate 95 H 95 H Respiratory Rate 18 16 Blood Pressure 115/64 Pulse Oximetry 100 08/03/18 23:50 08/04/18 02:48 08/04/18 03:09 Temperature 98.4 F Pulse Rate 97 H 79 Respiratory Rate 16 16 Blood Pressure 135/69 Pulse Oximetry 97 08/04/18 04:00 08/04/18 08:00 08/04/18 12:00 Temperature 98.2 F 98.1 F 98.1 F Pulse Rate 98 H 68 68 Respiratory Rate 16 16 16 Blood Pressure 116/57 L 102/54 L 102/54 L Pulse Oximetry 97 96 96 Intake & Output 08/03/18 08/04/18 08/04/18 18:59 06:59 18:59 Intake Total 900 / 900 820 / 820 Output Total 20 Balance 880 / 880 820 / 820 Weight 85.4 kg Intake: IV 100 / 100 100 / 100 Merrem Inj 1,000 MG In NS Inj 100 / 100 100 / 100 100 ML @ 200 mls/hr IV.SIG Q12H [facility] Rx#:[id number] Oral 720 / 720 Anesthesia Amount 800 / 800 Output: Estimated Blood Loss Other: Bladder Irrigation Fluid - Amount Instilled 3-way Urethral 300 Suprapubic 6,900 Bladder Irrigation Fluid - Amount Drained 3-way Urethral 300 Suprapubic 6,775 Date of Last Bowel Movement 08/03/18 08/03/18 08/03/18 Narrative: GENERAL: Alert, oriented 3, NAD. Looks frail, malnourished. SKIN: Warm and dry. HEAD: Normocephalic. EYES: No scleral icterus. No injection or drainage. NECK: Supple, trachea midline. No JVD or lymphadenopathy. CARDIOVASCULAR: Regular rate and rhythm without murmurs, gallops, or rubs. RESPIRATORY: Breath sounds equal bilaterally. No accessory muscle use. GASTROINTESTINAL: Abdomen soft, tender to palpation in the lower abdomen, nondistended. MUSCULOSKELETAL: Lower extremity edema. : Engel cath bag has normal color urine BACK: Nontender without obvious deformity. No CVA tenderness. - Urinary Catheter Management Indwelling Urethral Catheter Cath placed during this visit: yes Reason for continuing: Gross Hematuria Insertion date: 07/29/18 Insertion time: 11:00 Suprapubic Cath placed during this visit: yes Reason for continuing: Gross Hematuria Insertion date: 08/03/18 3-way Urethral Cath placed during this visit: yes Reason for continuing: Gross Hematuria Insertion date: 08/03/18 Assessment and Plan - Assessment (1) Acute on chronic kidney failure Code(s): N17.9 - Acute kidney failure, unspecified; N18.9 - Chronic kidney disease, unspecified Status: Acute Plan: patient's renal function is stable, improving. Monitor. Avoid nephrotoxic agents. Monitor urine output. (2) Gross hematuria Code(s): R31.0 - Gross hematuria Status: Acute Plan: Urology following. Possible bleeding from prostate. May have prostatitis. Underwent suprapubic catheter placement. Being followed by Oncology and urology. (3) Prostate cancer metastatic to bone Code(s): C61 - Malignant neoplasm of prostate; C79.51 - Secondary malignant neoplasm of bone Status: Acute Plan: Hematology/Oncology note was reviewed. (4) Acute UTI Code(s): N39.0 - Urinary tract infection, site not specified Status: Acute Plan: Possible prostatitis. On antibiotic.
[2018-08-04] MEDS: Latanoprost 0.005% Opth Drops 2.5 ML Bottle EACH EYE SCH (21:49)
[2018-08-04] MEDS: Acetaminophen 325 MG Tablet PO PRN (23:23)
[2018-08-05 05:10] LABS: Baso % (Auto) 0.3 % (0.0-2.0); Eos # (Auto) 0.1 th/mm3 (0.0-0.4); Hematocrit 23.4 % (39.0-51.0); Hemoglobin 7.7 gm/dL (13.0-17.0); Lymph # (Auto) 0.9 th/mm3 (1.0-4.8); Lymph % (Auto) 12.6 % (9.0-44.0); Mean Corpuscular Hemoglobin 30.6 pg (27.0-34.0); Mean Corpuscular Volume 92.7 fL (80.0-100.0); Mean Platelet Volume 6.6 fL (7.0-11.0); Mono # (Auto) 0.9 th/mm3 (0.0-0.9); Mono % (Auto) 12.2 % (0.0-8.0); Neut # (Auto) 5.3 th/mm3 (1.8-7.7); Neut % (Auto) 72.9 % (16.0-70.0); Platelet Count 269 th/mm3 (150-450); Red Blood Count 2.53 mil/mm3 (4.50-5.90); Red Cell Distribution Width 15.4 % (11.6-17.2); White Blood Count 7.3 th/mm3 (4.0-11.0)
[2018-08-05 05:38] LABS: Albumin 1.6 g/dL (3.4-5.0); Calcium 6.5 mg/dL (8.5-10.1); Carbon Dioxide 27.9 meq/L (21.0-32.0); Potassium 3.6 meq/L (3.5-5.1); Total Protein 5.7 g/dL (6.4-8.2)
[2018-08-05] MEDS: oxyCODONE 10 MG Controlled Release Tablet PO SCH ×2 (08:48→20:45)
[2018-08-05] MEDS: Tenofovir 300 MG Tablet PO SCH (08:49)
[2018-08-05] MEDS: Folic Acid 1 MG Tablet PO SCH (08:49)
[2018-08-05] MEDS: Tolterodine Tartrate LA 4 MG Capsule PO SCH (08:49)
[2018-08-05] MEDS: buPROPion 150 MG XL 24 HR Tablet PO SCH (08:49)
[2018-08-05] MEDS: Docusate Sodium 100 MG Capsule PO SCH ×3 (08:49→19:54)
[2018-08-05] MEDS: Gabapentin 300 MG Capsule PO SCH ×2 (08:49→20:45)
--- NOTE | 2018-08-05 09:36 | P.PNNP ---
Subjective Interval history: Patient still has bloody urine. CBI stopped due to pain and leaking around the surgical site of suprapubic catheter. Physical Exam Vital signs: Vital Signs 08/04/18 12:00 08/04/18 16:00 08/04/18 17:43 Temperature 98.1 F 99.1 F Pulse Rate 68 80 Respiratory Rate 16 16 18 Blood Pressure 102/54 L 117/63 Pulse Oximetry 96 96 08/04/18 20:23 08/04/18 20:56 08/04/18 23:27 Temperature 100.1 F H 102 F H Pulse Rate 82 89 Respiratory Rate 16 16 19 Blood Pressure 95/57 L 123/64 Pulse Oximetry 96 94 L 08/04/18 23:53 08/05/18 04:48 08/05/18 08:53 Temperature 99.7 F H 98.4 F Pulse Rate 84 69 Respiratory Rate 18 16 16 Blood Pressure 105/55 L 117/63 Pulse Oximetry 95 95 Intake & Output 08/04/18 08/05/18 08/05/18 18:59 06:59 18:59 Intake Total 920 / 920 700 / 700 Output Total 1750 / 1750 1400 / 1400 Balance -830 / -830 -700 / -700 Weight 85.4 kg Intake: IV 200 / 200 100 / 100 Levaquin 500 mg Premix Inj 500 100 / 100 mg In 100 ml @ 100 mls/hr IV. SIG Q48H [facility] Rx#:[id number] Merrem Inj 1,000 MG In NS Inj 100 / 100 100 / 100 100 ML @ 200 mls/hr IV.SIG Q12H [facility] Rx#:[id number] Oral 720 / 720 600 / 600 Bladder Irrigation Fluid - 0 / 0 Amount Retained 3-way Urethral 0 / 0 Output: Urine Amount (Catheter) 1750 / 1750 1400 / 1400 3-way Urethral 1550 / 1550 1400 / 1400 Suprapubic 200 / 200 0 / 0 Other: Bladder Irrigation Fluid - Amount Instilled 3-way Urethral 300 Bladder Irrigation Fluid - Amount Drained 3-way Urethral 60 Date of Last Bowel Movement 08/03/18 08/04/18 # Bowel Movements 1 Narrative: GENERAL: Alert, oriented 3, NAD. Looks frail, malnourished. SKIN: Warm and dry. HEAD: Normocephalic. EYES: No scleral icterus. No injection or drainage. NECK: Supple, trachea midline. No JVD or lymphadenopathy. CARDIOVASCULAR: Regular rate and rhythm without murmurs, gallops, or rubs. RESPIRATORY: Breath sounds equal bilaterally. No accessory muscle use. GASTROINTESTINAL: Abdomen soft, tender to palpation in the lower abdomen, nondistended. MUSCULOSKELETAL: Lower extremity edema. : Engel cath bag has normal color urine BACK: Nontender without obvious deformity. No CVA tenderness. - Urinary Catheter Management Indwelling Urethral Catheter Cath placed during this visit: yes Reason for continuing: Gross Hematuria Insertion date: 07/29/18 Insertion time: 11:00 Suprapubic Cath placed during this visit: yes Reason for continuing: Gross Hematuria Insertion date: 08/03/18 3-way Urethral Cath placed during this visit: yes Reason for continuing: Gross Hematuria Insertion date: 08/03/18 Assessment and Plan - Assessment (1) Acute on chronic kidney failure Code(s): N17.9 - Acute kidney failure, unspecified; N18.9 - Chronic kidney disease, unspecified Status: Acute Plan: patient's renal function is stable, this may be a new baseline. Monitor. Avoid nephrotoxic agents. Monitor urine output. (2) Gross hematuria Code(s): R31.0 - Gross hematuria Status: Acute Plan: Urology following. Possible bleeding from prostate. May have prostatitis. Underwent suprapubic catheter placement. Being followed by Oncology and urology. (3) Prostate cancer metastatic to bone Code(s): C61 - Malignant neoplasm of prostate; C79.51 - Secondary malignant neoplasm of bone Status: Acute Plan: Hematology/Oncology note was reviewed. (4) Acute UTI Code(s): N39.0 - Urinary tract infection, site not specified Status: Acute Plan: Possible prostatitis. On antibiotic.
--- NOTE | 2018-08-05 09:37 | P.PNONC ---
Subjective Interval history: T-max 102 last night Patient reports he was asymptomatic from this He continues to have leaking from suprapubic catheter insertion site Denies pain Denies shortness of breath Objective Vital Signs/Intake & Output: Vital Signs 08/04/18 12:00 08/04/18 16:00 08/04/18 17:43 Temperature 98.1 F 99.1 F Pulse Rate 68 80 Respiratory Rate 16 16 18 Blood Pressure 102/54 L 117/63 Pulse Oximetry 96 96 08/04/18 20:23 08/04/18 20:56 08/04/18 23:27 Temperature 100.1 F H 102 F H Pulse Rate 82 89 Respiratory Rate 16 16 19 Blood Pressure 95/57 L 123/64 Pulse Oximetry 96 94 L 08/04/18 23:53 08/05/18 04:48 08/05/18 08:53 Temperature 99.7 F H 98.4 F Pulse Rate 84 69 Respiratory Rate 18 16 16 Blood Pressure 105/55 L 117/63 Pulse Oximetry 95 95 Intake & Output 08/04/18 08/05/18 08/05/18 18:59 06:59 18:59 Intake Total 920 / 920 700 / 700 Output Total 1750 / 1750 1400 / 1400 Balance -830 / -830 -700 / -700 Weight 188 lb 4.396 oz Intake: IV 200 / 200 100 / 100 Levaquin 500 mg Premix Inj 500 100 / 100 mg In 100 ml @ 100 mls/hr IV. SIG Q48H [facility] Rx#:[id number] Merrem Inj 1,000 MG In NS Inj 100 / 100 100 / 100 100 ML @ 200 mls/hr IV.SIG Q12H [facility] Rx#:[id number] Oral 720 / 720 600 / 600 Bladder Irrigation Fluid - 0 / 0 Amount Retained 3-way Urethral 0 / 0 Output: Urine Amount (Catheter) 1750 / 1750 1400 / 1400 3-way Urethral 1550 / 1550 1400 / 1400 Suprapubic 200 / 200 0 / 0 Other: Bladder Irrigation Fluid - Amount Instilled 3-way Urethral 300 Bladder Irrigation Fluid - Amount Drained 3-way Urethral 60 Date of Last Bowel Movement 08/03/18 08/04/18 # Bowel Movements 1 Result Diagrams: 08/05/18 04:42 08/05/18 04:42 Laboratory Results: Laboratory Results - last 24 hr 08/05/18 08/05/18 04:42 04:42 WBC 7.3 RBC 2.53 L Hgb 7.7 L Hct 23.4 L MCV 92.7 MCH 30.6 MCHC 33.0 RDW 15.4 Plt Count 269 MPV 6.6 L Neut % (Auto) 72.9 H Lymph % (Auto) 12.6 [place] % (Auto) 12.2 H Eos % (Auto) 2.0 Baso % (Auto) 0.3 Neut # (Auto) 5.3 Lymph # (Auto) 0.9 L [place] # (Auto) 0.9 Eos # (Auto) 0.1 Baso # (Auto) 0.0 WBC Differential . Differential Comment Auto diff final Sodium 144 Potassium 3.6 Chloride 107 Carbon Dioxide 27.9 Anion Gap 9 BUN 24 H Creatinine 2.23 H Estimated GFR 29 L Random Glucose 99 Calcium 6.5 L* Prot Corrected Calcium 7.2 L* Total Bilirubin 0.3 AST 23 ALT 13 Alkaline Phosphatase 72 Total Protein 5.7 L Albumin 1.6 L Culture Results: Microbiology 08/02/18 00:55 Aerobic Blood Culture - Preliminary Blood - Peripheral No growth in 2 days Anaerobic Blood Culture - Preliminary No growth in 2 days 08/02/18 01:00 Aerobic Blood Culture - Preliminary Blood - Peripheral No growth in 2 days Anaerobic Blood Culture - Preliminary No growth in 2 days 07/30/18 07:50 Aerobic Blood Culture - Final Blood - Peripheral No growth in 5 days Anaerobic Blood Culture - Final No growth in 5 days 07/30/18 07:54 Aerobic Blood Culture - Final Blood - Peripheral No growth in 5 days Anaerobic Blood Culture - Final No growth in 5 days Medications: Active Medications Generic Name Dose Route Start Last Admin Trade Name Freq PRN Reason Stop Dose Admin Acetaminophen 650 mg 07/22/18 13:55 08/04/18 23:23 Tylenol PO 650 mg Q4H PRN Administration fever Acetaminophen 650 mg 07/29/18 08:29 08/01/18 20:35 Tylenol PO 650 mg Q4H PRN Administration SEE LABEL COMMENTS Belladonna Alkaloids/Opium 60 mg 08/02/18 15:30 08/02/18 23:41 B & O Supp RECTAL 60 mg Q6HR PRN Administration BLADDER SPASM Bupropion HCl 150 mg 07/22/18 14:00 08/05/18 08:49 Wellbutrin Xl PO 150 mg DAILY [facility] Administration Sodium Chloride 3,000 ml/ 0 ml 07/29/18 23:03 08/02/18 05:52 Aminocaproic Acid 3,000 mg IRRIGATION 3,000 irrig.soln Q24H PRN Administration TO KEEP URINE CLEAR Diazepam 5 mg 07/22/18 13:57 08/04/18 23:23 Valium PO 5 mg DAILY PRN Administration Anxiety Docusate Sodium 100 mg 07/25/18 15:45 08/05/18 08:49 Colace PO 100 mg TID [facility] Administration Folic Acid 1 mg 07/24/18 12:00 08/05/18 08:49 Folic Acid PO 1 mg DAILY [facility] Administration Gabapentin 300 mg 07/23/18 21:00 08/05/18 08:49 Neurontin PO 300 mg BID [facility] Administration Hydromorphone HCl 0.5 mg 07/26/18 19:30 08/04/18 23:23 Dilaudid Pf Inj IV.PUSH 0.5 mg Q4H PRN Administration BREAKTHROUGH PAIN Levofloxacin/Dextrose 500 mg in 100 mls @ 100 mls/hr 07/31/18 16:00 08/04/18 17:45 Levaquin 500 Mg Premix Inj IV.SIG Infused Q48H [facility] Infusion Meropenem 1,000 mg/ Sodium 100 mls @ 200 mls/hr 07/31/18 20:00 08/04/18 20:57 Chloride IV.SIG Infused Q12H [facility] Infusion Latanoprost 1 drop 07/22/18 21:00 08/04/18 21:49 Xalatan 0.005% Opth Drops EACH EYE 1 drop HS [facility] Administration Oxycodone HCl 5 mg 07/22/18 14:46 08/05/18 08:52 Roxicodone PO 5 mg Q4H PRN Administration breakthrough pain Oxycodone HCl 20 mg 08/01/18 20:00 08/05/18 08:48 Oxycontin Cr PO 20 mg Q12H [facility] Administration Tenofovir Disoproxil Fumarate 300 mg 07/24/18 09:00 08/05/18 08:49 Viread PO 300 mg EVERY OTHER DAY [facility] Administration Tolterodine Tartrate 4 mg 07/24/18 13:00 08/05/18 08:49 Detrol La PO 4 mg DAILY [facility] Administration Vitamin D 2,000 unit 07/25/18 09:00 08/05/18 08:49 Vitamin D3 PO 2,000 unit DAILY [facility] Administration Objective Remarks: GENERAL: Older male resting in bed in no obvious distress. He is asleep on approach but awakens easily to verbal stimuli. SKIN: Warm and dry. 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 EYES: No scleral icterus. No injection or drainage. NECK: Supple, trachea midline. No JVD or lymphadenopathy. CARDIOVASCULAR: Regular rate and rhythm without murmurs. RESPIRATORY: Breath sounds equal bilaterally. No accessory muscle use. GASTROINTESTINAL: Abdomen soft, non-tender, nondistended. : Suprapubic catheter in place to bedside bag. Urethral catheter draining to bedside bag with pink urine noted. EXTREMITIES: No cyanosis. Mild edema to bilateral lower extremities MUSCULOSKELETAL: Generalized weakness NEUROLOGICAL: No obvious focal deficit. Awake, alert, and oriented x3. Assessment/Plan - Plan Mr. Queen Is a 73-year-old man with a diagnosis of metastatic prostate carcinoma , he has had an excellent response to combination therapy consisting of leuprolide and Xtandi. His PSA levels have been less than 0.1 ng/dL over the past several months. He has extensive metastatic disease burden involving his axial skeleton especially his pelvis. Most recent PET CT scan revealed most of his previously active metastatic disease to be dormant, he however had intense hypermetabolic activity localized to the prostate and to the bladder. In late June he underwent cystoscopy for workup of hematuria with his former urologist Dr. Parmar, no obvious cause for hematuria was identified. He is now in the hospital with fevers, hematuria and pelvic pain. Clinically he has suspected prostatitis and is on broad-spectrum antibiotics with Zosyn and levofloxacin. Urine cultures and blood cultures are negative thus far other than forced staph epidermidis. CT scan of the abdomen/pelvis revealed no obvious cause for the hematuria. Recommendations: 1. Febrile illness: Patient has spiked another fever last night of 102F. I have ordered blood cultures 2 as well as UA with C&S if indicated. He is currently on Levaquin and meropenem. Previous blood cultures have been negative to date. 2. Hematuria: Now status post suprapubic catheter placement. He remains on bladder irrigation with Amicar solution. Urology following. Once discharged he will receive external beam radiation targeting the prostate. 3. Pain control, continue long and short acting opioids. Patient feels comfortable at this time. 4. Metastatic prostate carcinoma, PSA less than 0.1; plans to resume Xtandi upon discharge from the hospital. 5. Anemia, CBC on blood work drawn on 08/05/2018 indicates hemoglobin of 7.7 g/ dL. I discussed with the patient that if this continues to go down tomorrow we will plan to transfuse for hemoglobin less than 7.5. - Attending Statement The exam, history, and the medical decision-making described in the above note were completed with the assistance of the mid-level provider. I reviewed and agree with the findings presented. I attest that I had a [id number] encounter with the patient on the same day, and personally performed and documented my assessment and findings in the medical record. C/O fever and leaking around the suprapubic cath. Dr Goyal came in and fixing the cath. PRBC Monitor cbc
[2018-08-05 11:33] LABS: Bacteria,Urine Few /hpf; Bilirubin,Urine Negative (Negative); Clarity,Urine Hazy (Clear); Color,Urine Red (Yellw/Straw); Glucose,Urine (UA) 50 mg/dL (Negative); Hyaline Casts,Urine 7 /lpf (0-3); Leukocyte Esterase,Urine Trace (Negative); Mucus,Urine Few /lpf (Occasional); Nitrite,Urine Negative (Negative); Specific Gravity,Urine 1.006 (1.002-1.035); Squamous Epithelial Cell,Urine 1 /hpf (0-5)
[2018-08-05] MEDS: Calcium Carbonate 500 MG Tablet PO SCH ×2 (11:36→20:45)
--- NOTE | 2018-08-05 12:59 | P.PN ---
Subjective Interval history: Nursing denies any deterioration since last night with exception of fever of 102. Patient herself reports having some rectal pain only as he tries to stand from sitting position. Once he is ambulating his pain goes away. He thinks he has hemorrhoids. He says he does not want the continuous bladder irrigation to stop, is fearful that the pain will come back with clots. Physical Exam Vital signs: Vital Signs 08/04/18 16:00 08/04/18 17:43 08/04/18 20:23 Temperature 99.1 F 100.1 F H Pulse Rate 80 82 Respiratory Rate 16 18 16 Blood Pressure 117/63 95/57 L Pulse Oximetry 96 96 08/04/18 20:56 08/04/18 23:27 08/04/18 23:53 Temperature 102 F H Pulse Rate 89 Respiratory Rate 16 19 18 Blood Pressure 123/64 Pulse Oximetry 94 L 08/05/18 04:48 08/05/18 08:53 Temperature 99.7 F H 98.4 F Pulse Rate 84 69 Respiratory Rate 16 16 Blood Pressure 105/55 L 117/63 Pulse Oximetry 95 95 Intake & Output 08/04/18 08/05/18 08/05/18 18:59 06:59 18:59 Intake Total 920 / 920 700 / 700 100 / 100 Output Total 1750 / 1750 1400 / 1400 Balance -830 / -830 -700 / -700 100 / 100 Weight 85.4 kg Intake: IV 200 / 200 100 / 100 100 / 100 Levaquin 500 mg Premix Inj 500 100 / 100 mg In 100 ml @ 100 mls/hr IV. SIG Q48H [facility] Rx#:[id number] Merrem Inj 1,000 MG In NS Inj 100 / 100 100 / 100 100 / 100 100 ML @ 200 mls/hr IV.SIG Q12H [facility] Rx#:[id number] Oral 720 / 720 600 / 600 Bladder Irrigation Fluid - 0 / 0 Amount Retained 3-way Urethral 0 / 0 Output: Urine Amount (Catheter) 1750 / 1750 1400 / 1400 3-way Urethral 1550 / 1550 1400 / 1400 Suprapubic 200 / 200 0 / 0 Other: Bladder Irrigation Fluid - Amount Instilled 3-way Urethral 300 Bladder Irrigation Fluid - Amount Drained 3-way Urethral 60 Date of Last Bowel Movement 08/03/18 08/04/18 # Bowel Movements 1 Narrative: Lungs are clear bilaterally, unlabored breathing Heart sounds regular rate rhythm mild external hemorrhoids, DRG attempted but is too painful Second exam in p.m. shows that the abdomen is slightly distended with saline leaking out from suprapubic insertion site upon applying pressure to suprapubic region - Urinary Catheter Management Indwelling Urethral Catheter Cath placed during this visit: yes Reason for continuing: Gross Hematuria Insertion date: 07/29/18 Insertion time: 11:00 Suprapubic Cath placed during this visit: yes Reason for continuing: Gross Hematuria Insertion date: 08/03/18 3-way Urethral Cath placed during this visit: yes Reason for continuing: Gross Hematuria Insertion date: 08/03/18 Results - Labs CBC & Chem 7: 08/05/18 04:42 08/05/18 04:42 Laboratory Results - last 24 hr 08/05/18 08/05/18 08/05/18 04:42 04:42 08:30 WBC 7.3 RBC 2.53 L Hgb 7.7 L Hct 23.4 L MCV 92.7 MCH 30.6 MCHC 33.0 RDW 15.4 Plt Count 269 MPV 6.6 L Neut % (Auto) 72.9 H Lymph % (Auto) 12.6 [place] % (Auto) 12.2 H Eos % (Auto) 2.0 Baso % (Auto) 0.3 Neut # (Auto) 5.3 Lymph # (Auto) 0.9 L [place] # (Auto) 0.9 Eos # (Auto) 0.1 Baso # (Auto) 0.0 WBC Differential . Differential Comment Auto diff final Sodium 144 Potassium 3.6 Chloride 107 Carbon Dioxide 27.9 Anion Gap 9 BUN 24 H Creatinine 2.23 H Estimated GFR 29 L Random Glucose 99 Calcium 6.5 L* Prot Corrected Calcium 7.2 L* Total Bilirubin 0.3 AST 23 ALT 13 Alkaline Phosphatase 72 Total Protein 5.7 L Albumin 1.6 L Urine Color Red Urine Clarity Hazy H Urine pH 6.0 Ur Specific [place] 1.006 Urine Protein 100 H Urine Glucose (UA) 50 Urine Ketones Negative Urine Occult Blood Large H Urine Nitrate Negative Urine Bilirubin Negative Urine Urobilinogen Less than 2 Ur Leukocyte Esterase Trace H Urine RBC Urine WBC 52 H Ur Squamous Epith Cells 1 Urine Bacteria Few H Hyaline Casts 7 Urine Mucus Few H Micro UA Comment Culture indicated Ur Microscopic Review Not Reportable Urine Culture Comments Culture indicated Microbiology 08/02/18 00:55 Blood - Peripheral Aerobic Blood Culture - Preliminary No growth in 3 days 08/02/18 00:55 Blood - Peripheral Anaerobic Blood Culture - Preliminary No growth in 3 days 08/02/18 01:00 Blood - Peripheral Aerobic Blood Culture - Preliminary No growth in 3 days 08/02/18 01:00 Blood - Peripheral Anaerobic Blood Culture - Preliminary No growth in 3 days 07/30/18 07:50 Blood - Peripheral Aerobic Blood Culture - Final No growth in 5 days 07/30/18 07:50 Blood - Peripheral Anaerobic Blood Culture - Final No growth in 5 days 07/30/18 07:54 Blood - Peripheral Aerobic Blood Culture - Final No growth in 5 days 07/30/18 07:54 Blood - Peripheral Anaerobic Blood Culture - Final No growth in 5 days - Procedures 08/03/2018 Cystoscopy with placement of suprapubic tube, cystogram 07/29/2018 Cystoscopy with fulguration of prostate bleeding Assessment and Plan - Assessment (1) Acute UTI Code(s): N39.0 - Urinary tract infection, site not specified Status: Acute (2) Prostate cancer metastatic to bone Code(s): C61 - Malignant neoplasm of prostate; C79.51 - Secondary malignant neoplasm of bone Status: Acute - Plan Mr. Queen is a pleasant 73-year-old male with a history of metastatic prostate carcinoma who was admitted to the hospital due to fever, hematuria and pelvic pain. Infectious disease as well as oncology and urology have been following patient. Patient is currently on levofloxacin and Zosyn for suspected prostatitis. Acute prostatitis -Continue levofloxacin 500 mg Q48hrs. Infectious disease added meropenem. -Blood cx negative. Urine cx from 07/22/2018 showed Staph Epi. -Another fever last night, blood cultures redrawn Rectal pain -Possible anal fissure versus hemorrhoids, will attempt lidocaine cream Persistent hematuria Bilateral hydronephrosis on ultrasound left greater than right -Radiation oncology is planning treatments. -Suprapubic catheter placement on 08/03/2018. -Having trouble with CBI, possibly distended bladder with a jammed/clogged three-way Engel, discussed case with urology, will order nursing to remove Engel and instead insert a 20 Thai Engel and then drainage followed by CBI. Acute post-hemorrhagic anemia due to Genitourinary tract bleeding. -Two units of PRBCs on 08/02/2018. Metastatic prostate carcinoma -Oncology is following. Patient is has had good response to leuprolide and Enzalutamide (Xtandi). -Continue oxycodone for pain control. Continue long-acting OxyContin 20 mg twice daily. Hypocalcemia Acute kidney injury on Chronic kidney disease -Nephrology is following. Creatinine hovering around 2.2-2.3. -Stabilized Full code. Ambulation. Pharmacological DVT prophylaxis contraindicated at this point. Discharge Planning: Discharge plan: Difficult discharge due to persistent/recurrent hematuria. Voiding trial on 08/07/2018. Possible discharge early next week.
--- NOTE | 2018-08-05 13:59 | P.PNID ---
Subjective Remarks: spiking up to 102 again sp SP cath placement + hemturia, quite prominenet co rectal pidianna Thinks that overall rectal pain, fever started over the same period of time for about 2 mos stools are formed Antibiotics: meropenem levaquin vanco - stopped Past Medical History: prostate ca Allergies/Adverse Reactions: Allergies morphine Allergy (Severe, Verified 07/22/18 11:48) MORPHINE ALLERGY ADDED 12/19/07 @1500 - N/V Objective Vital Signs 08/04/18 16:00 08/04/18 17:43 08/04/18 20:23 Temperature 99.1 F 100.1 F H Pulse Rate 80 82 Respiratory Rate 16 18 16 Blood Pressure 117/63 95/57 L Pulse Oximetry 96 96 08/04/18 20:56 08/04/18 23:27 08/04/18 23:53 Temperature 102 F H Pulse Rate 89 Respiratory Rate 16 19 18 Blood Pressure 123/64 Pulse Oximetry 94 L 08/05/18 04:48 08/05/18 08:53 Temperature 99.7 F H 98.4 F Pulse Rate 84 69 Respiratory Rate 16 16 Blood Pressure 105/55 L 117/63 Pulse Oximetry 95 95 Intake & Output 08/04/18 08/05/18 08/05/18 18:59 06:59 18:59 Intake Total 920 / 920 700 / 700 100 / 100 Output Total 1750 / 1750 1400 / 1400 Balance -830 / -830 -700 / -700 100 / 100 Weight 85.4 kg Intake: IV 200 / 200 100 / 100 100 / 100 Levaquin 500 mg Premix Inj 500 100 / 100 mg In 100 ml @ 100 mls/hr IV. SIG Q48H [facility] Rx#:[id number] Merrem Inj 1,000 MG In NS Inj 100 / 100 100 / 100 100 / 100 100 ML @ 200 mls/hr IV.SIG Q12H [facility] Rx#:[id number] Oral 720 / 720 600 / 600 Bladder Irrigation Fluid - 0 / 0 Amount Retained 3-way Urethral 0 / 0 Output: Urine Amount (Catheter) 1750 / 1750 1400 / 1400 3-way Urethral 1550 / 1550 1400 / 1400 Suprapubic 200 / 200 0 / 0 Other: Bladder Irrigation Fluid - Amount Instilled 3-way Urethral 300 Bladder Irrigation Fluid - Amount Drained 3-way Urethral 60 Date of Last Bowel Movement 08/03/18 08/04/18 # Bowel Movements 1 08/05/18 08:30 Clean Catch Urine Urine Culture - Pending 08/02/18 00:55 Blood - Peripheral Aerobic Blood Culture - Preliminary No growth in 3 days 08/02/18 00:55 Blood - Peripheral Anaerobic Blood Culture - Preliminary No growth in 3 days 08/02/18 01:00 Blood - Peripheral Aerobic Blood Culture - Preliminary No growth in 3 days 08/02/18 01:00 Blood - Peripheral Anaerobic Blood Culture - Preliminary No growth in 3 days 08/05/18 10:41 Blood - Peripheral Aerobic Blood Culture - Pending 08/05/18 10:41 Blood - Peripheral Anaerobic Blood Culture - Pending 08/05/18 08:30 Blood - Peripheral Aerobic Blood Culture - Pending 08/05/18 08:30 Blood - Peripheral Anaerobic Blood Culture - Pending 07/30/18 07:50 Blood - Peripheral Aerobic Blood Culture - Final No growth in 5 days 07/30/18 07:50 Blood - Peripheral Anaerobic Blood Culture - Final No growth in 5 days 07/30/18 07:54 Blood - Peripheral Aerobic Blood Culture - Final No growth in 5 days 07/30/18 07:54 Blood - Peripheral Anaerobic Blood Culture - Final No growth in 5 days Lab - Hematology Results 08/05/18 04:42 WBC 7.3 RBC 2.53 L Hgb 7.7 L Hct 23.4 L MCV 92.7 MCH 30.6 MCHC 33.0 RDW 15.4 Plt Count 269 MPV 6.6 L Neut % (Auto) 72.9 H Lymph % (Auto) 12.6 [place] % (Auto) 12.2 H Eos % (Auto) 2.0 Baso % (Auto) 0.3 Neut # (Auto) 5.3 Lymph # (Auto) 0.9 L [place] # (Auto) 0.9 Eos # (Auto) 0.1 Baso # (Auto) 0.0 WBC Differential . Differential Comment Auto diff final Lab - Chemistry Results 08/05/18 04:42 Sodium 144 Potassium 3.6 Chloride 107 Carbon Dioxide 27.9 Anion Gap 9 BUN 24 H Creatinine 2.23 H Estimated GFR 29 L Random Glucose 99 Calcium 6.5 L* Prot Corrected Calcium 7.2 L* Total Bilirubin 0.3 AST 23 ALT 13 Alkaline Phosphatase 72 Total Protein 5.7 L Albumin 1.6 L Imaging: ITS Impressions Chest X-Ray 07/22/18 11:00 CONCLUSION: The lungs are grossly clear. Sclerotic metastatic disease. Abdomen/Bladder Ultrasound 07/23/18 00:00 CONCLUSION: 1. Significant debris within the bladder likely blood. Mild bilateral hydronephrosis left greater than right. Abdomen/Pelvis CT 07/24/18 00:00 CONCLUSION: 1. Abnormal bladder with increased density consistent with blood products and/ or tumor. A Palacios catheter is present with a small amount of air. 2. New mild to moderate bilateral hydronephrosis. Small bilateral pleural effusions right greater than left. 3. Extensive sclerotic metastatic disease with interval progression. Physical Exam: GENERAL: NAD chronically ill appearing SKIN: Warm and dry. No rash HEAD: Atraumatic. Normocephalic. EYES: Pupils equal and round. No scleral icterus. No injection or drainage. ENT: No nasal bleeding or discharge. Mucous membranes pink and moist. NECK: Trachea midline. No JVD. CARDIOVASCULAR: Regular rate and rhythm. RESPIRATORY: No accessory muscle use. Clear to auscultation. Breath sounds equal bilaterally. GASTROINTESTINAL: Abdomen soft, tender to palpation in lower quadrants w/o guarding or rebound + minimally distended. Hepatic and splenic margins not palpable. : palacios in place with red and clody urine urine Sp cath in place with red and clody urine urine MUSCULOSKELETAL: Extremities without clubbing, cyanosis, No obvious deformities. NEUROLOGICAL: Awake and alert. No obvious cranial nerve deficits. Motor grossly within normal limits. Five out of 5 muscle strength in the arms and legs. Normal speech. PSYCHIATRIC: Appropriate mood and affect; insight and judgment normal. Assessment and Plan - Plan Metastatic prostate cancer FUO (6 weeks) Hematuria Probably UTI - Staph epi not a typical pathogen GENI - worse Persistent fever and rectal pain - proctiti? cont levaquin cont meropenem fu urine clx CMV PCR consult GI to scope for persistent rectal pain dw pt dw @ b/s
[2018-08-05] MEDS: HYDROmorphone PF Inj 2 MG/ML Vial IV.PUSH PRN (16:45)
[2018-08-05] MEDS ORDERED: Hydrocortisone Acetate 25 MG Supp RECTAL PRN (17:13)
[2018-08-05] MEDS ORDERED: Lidocaine 5% Oint 37 GM Tube TOPICAL PRN (17:15)
[2018-08-05] MEDS ORDERED: HYDROmorphone PF Inj 2 MG/ML Vial IV.PUSH ONE (17:31)
--- NOTE | 2018-08-05 17:34 | P.CONGI ---
History of Present Illness Consult date: 08/05/18 Consult reason: Rectal pain Chief complaint: UTI, Chest wall contusion, forehead laceration History of Present Illness: This is a 73-year-old male who came into the hospital on 07/22/2018 with generalized weakness. According to the record and patient's he has been suffering from metastatic prostate carcinoma and treated with antibiotics for prostatitis patient has also has Engel catheter with hematuria noted and a suprapubic catheter which was placed on 08/03 per cystoscopy. Patient has a history of constipation and has been working on a home regimen with his and Dr. Brock for his rectal pain as well as constipation. Onset of his rectal pain symptoms approximately 2 months which have continued to worsen and become uncontrolled. Patient was placed on Amitiza at home and also responded well to Colace 100 mg 3 times a day. According to the patient and his patient's bowels have been moving in the hospital almost daily but they are noted to be hard, formed, brown, and without any obvious bleeding. Patient had a large formed bowel movement today and is continuing to complain of uncontrolled rectal discomfort. Patient does have external hemorrhoids. states at home patient was able to tolerate suppository but did not tolerate insertion of rectal cream. It is also noted that patient has had fever off and on for the past couple of months. Current hemoglobin is 7.7, PT/INR 1.1 bilirubin and LFTs are normal. Patient is awake answering simple questions and noted last colonoscopy was around 5 years ago. Patient and 's current main goal is pain control medical management. Gastroenterology has been consulted to assist with his symptoms. And a plan of care. 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 - Surgical History Surgical History: Surgical History (Last Reviewed 08/01/18 @ 09:19 by Kitty Palacio) S/P hip replacement - Family History Family History: Family History (Last Reviewed 08/01/18 @ 09:19 by Kitty Palacio) Other Family history of cancer - Tobacco History Second Hand Smoke Exposure: No Tobacco Use In Past 30 Days: No Smoking Status: Former smoker Tobacco Type: Cigarettes - Alcohol History How Often Do You Have a Drink Containing Alcohol: 2 to 4 times a month - Substance Use History Substance History: No History of Abuse - Substance Use Type Marijuana Status: Active Route Used: Inhalation Comment: medically provided to patient for pain - Travel History Recent Travel in the [place] Within the Last 8 Weeks: No Recent Travel Out of the Country Within the Last 8 Weeks: No - Immunization History Tetanus Immunization: Unsure Hx Influenza Vaccine This Season: Yes <Olga Mac - Last Filed: 08/05/18 17:19> - Medical History Medical History: Medical History (Last Reviewed 08/01/18 @ 09:19 by Kitty Palacio) Chronic pain due to neoplasm FH: cholecystectomy Hematuria Hepatitis B Hypertension Kidney disease Prostate cancer 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 - Surgical History Surgical History: Surgical History (Last Reviewed 08/01/18 @ 09:19 by Kitty Palacio) S/P hip replacement - Family History Family History: Family History (Last Reviewed 08/01/18 @ 09:19 by Kitty Palacio) Other Family history of cancer <Kailash Man - Last Filed: 08/05/18 21:29> Medications and Allergies Active Medications: Active Medications Acetaminophen (Tylenol) 650 mg PO Q4H PRN PRN Reason: fever Last Admin: 08/04/18 23:23 Dose: 650 mg Acetaminophen (Tylenol) 650 mg PO Q4H PRN PRN Reason: SEE LABEL COMMENTS Last Admin: 08/01/18 20:35 Dose: 650 mg Belladonna Alkaloids/Opium (B & O Supp) 60 mg RECTAL Q6HR PRN PRN Reason: BLADDER SPASM Last Admin: 08/02/18 23:41 Dose: 60 mg Bupropion HCl (Wellbutrin Xl) 150 mg PO DAILY [facility] Last Admin: 08/05/18 08:49 Dose: 150 mg Sodium Chloride 3,000 ml/ (Aminocaproic Acid 3,000 mg) 0 ml IRRIGATION Q24H PRN PRN Reason: TO KEEP URINE CLEAR Last Admin: 08/02/18 05:52 Dose: 3,000 irrig.soln Diazepam (Valium) 5 mg PO DAILY PRN PRN Reason: Anxiety Last Admin: 08/04/18 23:23 Dose: 5 mg Docusate Sodium (Colace) 100 mg PO TID [facility] Last Admin: 08/05/18 13:13 Dose: 100 mg Folic Acid (Folic Acid) 1 mg PO DAILY [facility] Last Admin: 08/05/18 08:49 Dose: 1 mg Gabapentin (Neurontin) 300 mg PO BID [facility] Last Admin: 08/05/18 08:49 Dose: 300 mg Hydrocortisone Acetate (Hemorrhoidal Hc Supp) 25 mg RECTAL TID PRN PRN Reason: Acute Pain Hydromorphone HCl (Dilaudid Pf Inj) 0.5 mg IV.PUSH Q4H PRN PRN Reason: BREAKTHROUGH PAIN Last Admin: 08/05/18 16:45 Dose: 0.5 mg Levofloxacin/Dextrose (Levaquin 500 Mg Premix Inj) 500 mg in 100 mls @ 100 mls/ hr IV.SIG Q48H [facility] Last Infusion: 08/04/18 17:45 Dose: Infused Meropenem 1,000 mg/ Sodium (Chloride) 100 mls @ 200 mls/hr IV.SIG Q12H [facility] Last Infusion: 08/05/18 11:38 Dose: Infused Latanoprost (Xalatan 0.005% Opth Drops) 1 drop EACH EYE [facility] Last Admin: 08/04/18 21:49 Dose: 1 drop Lidocaine HCl (Xylocaine 5% Oint) 1 applicatio TOPICAL Q8H PRN PRN Reason: Acute Pain Oxycodone HCl (Roxicodone) 5 mg PO Q4H PRN PRN Reason: breakthrough pain Last Admin: 08/05/18 13:13 Dose: 5 mg Oxycodone HCl (Oxycontin Cr) 20 mg PO Q12H [facility] Last Admin: 08/05/18 08:48 Dose: 20 mg Pom: (Lubiprostone [ (Amitiza] 24 Mcg)) 0 each PO BID [facility] Tenofovir Disoproxil Fumarate (Viread) 300 mg PO EVERY OTHER DAY [facility] Last Admin: 08/05/18 08:49 Dose: 300 mg Tolterodine Tartrate (Detrol La) 4 mg PO DAILY [facility] Last Admin: 08/05/18 08:49 Dose: 4 mg Vitamin D (Vitamin D3) 2,000 unit PO DAILY [facility] Last Admin: 08/05/18 08:49 Dose: 2,000 unit <Olga Mac - Last Filed: 08/05/18 17:19> Active Medications: Active Medications Acetaminophen (Tylenol) 650 mg PO Q4H PRN PRN Reason: fever Last Admin: 08/05/18 20:45 Dose: 650 mg Acetaminophen (Tylenol) 650 mg PO Q4H PRN PRN Reason: SEE LABEL COMMENTS Last Admin: 08/01/18 20:35 Dose: 650 mg Belladonna Alkaloids/Opium (B & O Supp) 60 mg RECTAL Q6HR PRN PRN Reason: BLADDER SPASM Last Admin: 08/02/18 23:41 Dose: 60 mg Bupropion HCl (Wellbutrin Xl) 150 mg PO DAILY [facility] Last Admin: 08/05/18 08:49 Dose: 150 mg Sodium Chloride 3,000 ml/ (Aminocaproic Acid 3,000 mg) 0 ml IRRIGATION Q24H PRN PRN Reason: TO KEEP URINE CLEAR Last Admin: 08/02/18 05:52 Dose: 3,000 irrig.soln Diazepam (Valium) 5 mg PO DAILY PRN PRN Reason: Anxiety Last Admin: 08/04/18 23:23 Dose: 5 mg Docusate Sodium (Colace) 100 mg PO TID [facility] Last Admin: 08/05/18 19:54 Dose: Not Given Folic Acid (Folic Acid) 1 mg PO DAILY [facility] Last Admin: 08/05/18 08:49 Dose: 1 mg Gabapentin (Neurontin) 300 mg PO BID [facility] Last Admin: 08/05/18 20:45 Dose: 300 mg Hydrocortisone Acetate (Hemorrhoidal Hc Supp) 25 mg RECTAL TID PRN PRN Reason: Acute Pain Hydromorphone HCl (Dilaudid Pf Inj) 0.5 mg IV.PUSH Q4H PRN PRN Reason: BREAKTHROUGH PAIN Last Admin: 08/05/18 16:45 Dose: 0.5 mg Levofloxacin/Dextrose (Levaquin 500 Mg Premix Inj) 500 mg in 100 mls @ 100 mls/ hr IV.SIG Q48H [facility] Last Infusion: 08/04/18 17:45 Dose: Infused Meropenem 1,000 mg/ Sodium (Chloride) 100 mls @ 200 mls/hr IV.SIG Q12H [facility] Last Admin: 08/05/18 20:46 Dose: 200 mls/hr Latanoprost (Xalatan 0.005% Opth Drops) 1 drop EACH EYE [facility] Last Admin: 08/04/18 21:49 Dose: 1 drop Lidocaine HCl (Xylocaine 5% Oint) 1 applicatio TOPICAL Q8H PRN PRN Reason: Acute Pain Last Admin: 08/05/18 20:46 Dose: 1 applicatio Oxycodone HCl (Roxicodone) 5 mg PO Q4H PRN PRN Reason: breakthrough pain Last Admin: 08/05/18 20:46 Dose: 5 mg Oxycodone HCl (Oxycontin Cr) 20 mg PO Q12H [facility] Last Admin: 08/05/18 20:45 Dose: 20 mg Pom: (Lubiprostone [ (Amitiza] 24 Mcg)) 0 each PO BID [facility] Tenofovir Disoproxil Fumarate (Viread) 300 mg PO EVERY OTHER DAY [facility] Last Admin: 08/05/18 08:49 Dose: 300 mg Tolterodine Tartrate (Detrol La) 4 mg PO DAILY [facility] Last Admin: 08/05/18 08:49 Dose: 4 mg Vitamin D (Vitamin D3) 2,000 unit PO DAILY [facility] Last Admin: 08/05/18 08:49 Dose: 2,000 unit <Kailash Man E - Last Filed: 08/05/18 21:29> Allergies Allergy/AdvReac Type Severity Reaction Status Date / Time morphine Allergy Severe MORPHINE Verified 07/22/18 11:48 ALLERGY ADDED 12/19/07 @1500 - N/V Home Medications Medication Instructions Recorded Confirmed Type bimatoprost [Lumigan] 1 drp OPHTHALMIC (EYE) QPM 07/22/18 07/22/18 History bupropion HCl 150 mg PO QAM 07/22/18 07/22/18 History denosumab 120 mg SUB-Q Q4W 07/22/18 07/22/18 History diazepam [Valium] 5 mg PO DAILY PRN 07/22/18 07/22/18 History docusate sodium [Colace] 100 mg PO BID 07/22/18 07/22/18 History enzalutamide 160 mg PO DAILY 07/22/18 07/22/18 History folic acid 0.4 mg PO DAILY 07/22/18 07/22/18 History gabapentin 300 mg PO BID 07/22/18 07/22/18 History glucosamine-chondroitin [Osteo 2 tab PO DAILY 07/22/18 07/22/18 History Bi-Flex] leuprolide (3 month) 0 mg IM [id number] 07/22/18 07/22/18 History lubiprostone [Amitiza] 24 mcg PO BID 07/22/18 07/22/18 History oxycodone 5 mg PO Q4-6H 07/22/18 07/22/18 History oxycodone [OxyContin] 10 mg PO Q12H 07/22/18 07/22/18 History solifenacin [Vesicare] 10 mg PO DAILY 07/22/18 07/22/18 History telmisartan [Micardis] 80 mg PO DAILY 07/22/18 07/22/18 History tenofovir disoproxil fumarate 300 mg PO EVERY OTHER DAY 07/22/18 07/22/18 History [Viread] Exam Vital signs: Vital Signs 08/04/18 17:43 08/04/18 20:23 08/04/18 20:56 Temperature 100.1 F H Pulse Rate 82 Respiratory Rate 18 16 16 Blood Pressure 95/57 L Pulse Oximetry 96 08/04/18 23:27 08/04/18 23:53 08/05/18 04:48 Temperature 102 F H 99.7 F H Pulse Rate 89 84 Respiratory Rate 19 18 16 Blood Pressure 123/64 105/55 L Pulse Oximetry 94 L 95 08/05/18 08:53 Temperature 98.4 F Pulse Rate 69 Respiratory Rate 16 Blood Pressure 117/63 Pulse Oximetry 95 Intake & Output 08/04/18 08/05/18 08/05/18 18:59 06:59 18:59 Intake Total 920 / 920 700 / 700 100 / 100 Output Total 1750 / 1750 1400 / 1400 Balance -830 / -830 -700 / -700 100 / 100 Weight 85.4 kg Intake: IV 200 / 200 100 / 100 100 / 100 Levaquin 500 mg Premix Inj 500 100 / 100 mg In 100 ml @ 100 mls/hr IV. SIG Q48H [facility] Rx#:[id number] Merrem Inj 1,000 MG In NS Inj 100 / 100 100 / 100 100 / 100 100 ML @ 200 mls/hr IV.SIG Q12H [facility] Rx#:[id number] Oral 720 / 720 600 / 600 Bladder Irrigation Fluid - 0 / 0 Amount Retained 3-way Urethral 0 / 0 Output: Urine Amount (Catheter) 1750 / 1750 1400 / 1400 3-way Urethral 1550 / 1550 1400 / 1400 Suprapubic 200 / 200 0 / 0 Other: Bladder Irrigation Fluid - Amount Instilled 3-way Urethral 300 Bladder Irrigation Fluid - Amount Drained 3-way Urethral 60 Date of Last Bowel Movement 08/03/18 08/04/18 # Bowel Movements 1 - Constitutional moderate distress, thin, cachectic, disheveled - Routine HEENT Exam Head: Present: normocephalic ENT: Present: mucous membranes dry - Routine Respiratory Exam Present: accessory muscle use (No obvious shortness of breath) - Routine Cardiovascular Exam Present: S1, S2 - Routine Abdominal Exam Present: soft (Round,), tenderness (Mild tenderness, suprapubic catheter and Engel catheter draining hematuria) - Routine Skin Exam Present: intact <Intervale,Olga M - Last Filed: 08/05/18 17:19> Vital signs: Vital Signs 08/04/18 23:27 08/04/18 23:53 08/05/18 04:48 Temperature 102 F H 99.7 F H Pulse Rate 89 84 Respiratory Rate 19 18 16 Blood Pressure 123/64 105/55 L Pulse Oximetry 94 L 95 08/05/18 08:53 08/05/18 12:00 08/05/18 16:00 Temperature 98.4 F 97.1 F L 98.1 F Pulse Rate 69 68 74 Respiratory Rate 16 22 20 Blood Pressure 117/63 123/68 116/75 Pulse Oximetry 95 96 97 Intake & Output 08/05/18 08/05/18 08/06/18 06:59 18:59 06:59 Intake Total 700 / 700 100 / 100 Output Total 1400 / 1400 2350 / 2350 Balance -700 / -700 -2250 / -2250 Weight 85.4 kg Intake: IV 100 / 100 100 / 100 Merrem Inj 1,000 MG In NS Inj 100 / 100 100 / 100 100 ML @ 200 mls/hr IV.SIG Q12H [facility] Rx#:[id number] Oral 600 / 600 Output: Urine Amount (Catheter) 1400 / 1400 2350 / 2350 3-way Urethral 1400 / 1400 Suprapubic 0 / 0 2350 / 2350 Other: Date of Last Bowel Movement 08/04/18 # Bowel Movements 1 <Kailash Man - Last Filed: 08/05/18 21:29> Results - Labs CBC & Chem 7: 08/05/18 04:42 08/05/18 04:42 Labs: Laboratory Results - last 24 hr 08/05/18 08/05/18 08/05/18 04:42 04:42 08:30 WBC 7.3 RBC 2.53 L Hgb 7.7 L Hct 23.4 L MCV 92.7 MCH 30.6 MCHC 33.0 RDW 15.4 Plt Count 269 MPV 6.6 L Neut % (Auto) 72.9 H Lymph % (Auto) 12.6 [place] % (Auto) 12.2 H Eos % (Auto) 2.0 Baso % (Auto) 0.3 Neut # (Auto) 5.3 Lymph # (Auto) 0.9 L [place] # (Auto) 0.9 Eos # (Auto) 0.1 Baso # (Auto) 0.0 WBC Differential . Differential Comment Auto diff final Sodium 144 Potassium 3.6 Chloride 107 Carbon Dioxide 27.9 Anion Gap 9 BUN 24 H Creatinine 2.23 H Estimated GFR 29 L Random Glucose 99 Calcium 6.5 L* Prot Corrected Calcium 7.2 L* Total Bilirubin 0.3 AST 23 ALT 13 Alkaline Phosphatase 72 Total Protein 5.7 L Albumin 1.6 L Urine Color Red Urine Clarity Hazy H Urine pH 6.0 Ur Specific [place] 1.006 Urine Protein 100 H Urine Glucose (UA) 50 Urine Ketones Negative Urine Occult Blood Large H Urine Nitrate Negative Urine Bilirubin Negative Urine Urobilinogen Less than 2 Ur Leukocyte Esterase Trace H Urine RBC Urine WBC 52 H Ur Squamous Epith Cells 1 Urine Bacteria Few H Hyaline Casts 7 Urine Mucus Few H Micro UA Comment Culture indicated Ur Microscopic Review Not Reportable Urine Culture Comments Culture indicated <Olga Mac - Last Filed: 08/05/18 17:19> - Labs CBC & Chem 7: 08/05/18 04:42 08/05/18 04:42 Labs: Laboratory Results - last 24 hr 08/05/18 08/05/1808/05/18 04:42 04:42 08:30 WBC 7.3 RBC 2.53 L Hgb 7.7 L Hct 23.4 L MCV 92.7 MCH 30.6 MCHC 33.0 RDW 15.4 Plt Count 269 MPV 6.6 L Neut % (Auto) 72.9 H Lymph % (Auto) 12.6 [place] % (Auto) 12.2 H Eos % (Auto) 2.0 Baso % (Auto) 0.3 Neut # (Auto) 5.3 Lymph # (Auto) 0.9 L [place] # (Auto) 0.9 Eos # (Auto) 0.1 Baso # (Auto) 0.0 WBC Differential . Differential Comment Auto diff final Sodium 144 Potassium 3.6 Chloride 107 Carbon Dioxide 27.9 Anion Gap 9 BUN 24 H Creatinine 2.23 H Estimated GFR 29 L Random Glucose 99 Calcium 6.5 L* Prot Corrected Calcium 7.2 L* Total Bilirubin 0.3 AST 23 ALT 13 Alkaline Phosphatase 72 Total Protein 5.7 L Albumin 1.6 L Urine Color Red Urine Clarity Hazy H Urine pH 6.0 Ur Specific [place] 1.006 Urine Protein 100 H Urine Glucose (UA) 50 Urine Ketones Negative Urine Occult Blood Large H Urine Nitrate Negative Urine Bilirubin Negative Urine Urobilinogen Less than 2 Ur Leukocyte Esterase Trace H Urine RBC Urine WBC 52 H Ur Squamous Epith Cells 1 Urine Bacteria Few H Hyaline Casts 7 Urine Mucus Few H Micro UA Comment Culture indicated Ur Microscopic Review Not Reportable Urine Culture Comments Culture indicated <DonovanKailash E - Last Filed: 08/05/18 21:29> Assessment and Plan - Plan Uncontrolled Rectal pain, symptoms and onset have been off and on for the past few months and continue to worsen. History of constipation with straining. External hemorrhoids evident. Stools are hard brown no obvious bleeding and BMs are every 1-2 days. Patient was using Colace stool softeners at home and was placed on Amitiza. Patient had a large formed bowel movement today and is continuing to complain of uncontrolled rectal discomfort. Patient does have external hemorrhoids. Patient was able to tolerate a suppository at home but was unable to use applicator with cream. Gastroenterology has been consulted to assist with his symptoms and patient is hoping for some medical management and rectal pain control Anemia probable some acute on chronic since patient is having some hematuria and also has prostate cancer . current labs hemoglobin is 7.7, PT/INR 1.1 bilirubin and LFTs are normal. Patient is awake answering simple questions and noted last colonoscopy was around 5 years ago. Patient and 's current main goal is pain control medical management. Gastroenterology has been consulted to assist with his symptoms. And a plan of care. Plan Avoid straining as much as possible with defecation Anusol HC suppositories ordered as needed Lidocaine 5% cream to apply to the outer rectal area as needed Colace 100 mg 3 times daily Pain meds per attending Supportive care Further recommendations to follow Patient was seen per myself and Dr. Man, note was written on his behalf <Olga Mac M - Last Filed: 08/05/18 17:19> - Plan patient seen and examined agree with above continue current supportive care monitor labs <Kailash Man - Last Filed: 08/05/18 21:29>
--- NOTE | 2018-08-05 19:04 | P.PNURO ---
Subjective Patient symptoms today: Contacted by hospitalist for lower abdominal pain and probably functional catheter drainage. Patient had a suprapubic catheter placed 2 days ago along with a three-way Palacios via the urethra. Objective Vital Signs: Vital Signs 08/04/18 20:23 08/04/18 20:56 08/04/18 23:27 Temperature 100.1 F H 102 F H Pulse Rate 82 89 Respiratory Rate 16 16 19 Blood Pressure 95/57 L 123/64 Pulse Oximetry 96 94 L 08/04/18 23:53 08/05/18 04:48 08/05/18 08:53 Temperature 99.7 F H 98.4 F Pulse Rate 84 69 Respiratory Rate 18 16 16 Blood Pressure 105/55 L 117/63 Pulse Oximetry 95 95 Intake & Output 08/04/18 08/05/18 08/05/18 18:59 06:59 18:59 Intake Total 920 / 920 700 / 700 100 / 100 Output Total 1750 / 1750 1400 / 1400 Balance -830 / -830 -700 / -700 100 / 100 Weight 85.4 kg Intake: IV 200 / 200 100 / 100 100 / 100 Levaquin 500 mg Premix Inj 500 100 / 100 mg In 100 ml @ 100 mls/hr IV. SIG Q48H [facility] Rx#:[id number] Merrem Inj 1,000 MG In NS Inj 100 / 100 100 / 100 100 / 100 100 ML @ 200 mls/hr IV.SIG Q12H [facility] Rx#:[id number] Oral 720 / 720 600 / 600 Bladder Irrigation Fluid - 0 / 0 Amount Retained 3-way Urethral 0 / 0 Output: Urine Amount (Catheter) 1750 / 1750 1400 / 1400 3-way Urethral 1550 / 1550 1400 / 1400 Suprapubic 200 / 200 0 / 0 Other: Bladder Irrigation Fluid - Amount Instilled 3-way Urethral 300 Bladder Irrigation Fluid - Amount Drained 3-way Urethral 60 Date of Last Bowel Movement 08/03/18 08/04/18 # Bowel Movements 1 Result Diagrams: 08/05/18 04:42 08/05/18 04:42 Procedures: Suprapubic catheter gently repositioned after balloon deflated. Balloon subsequently reinflated with 10 cc sterile water. Catheter then secured to lower abdomen with fixation device. Three-way Palacios catheter then replaced with a 20 [place] two-way Palacios catheter and subsequently irrigated with evacuation of a few small clots. CBI then re- implemented with inflow via the Palacios and outflow via the suprapubic catheter and titrated to light pink return. Medications and IVs: Active Medications Generic Name Dose Route Start Last Admin Trade Name Freq PRN Reason Stop Dose Admin Acetaminophen 650 mg 07/22/18 13:55 08/04/18 23:23 Tylenol PO 650 mg Q4H PRN Administration fever Acetaminophen 650 mg 07/29/18 08:29 08/01/18 20:35 Tylenol PO 650 mg Q4H PRN Administration SEE LABEL COMMENTS Belladonna Alkaloids/Opium 60 mg 08/02/18 15:30 08/02/18 23:41 B & O Supp RECTAL 60 mg Q6HR PRN Administration BLADDER SPASM Bupropion HCl 150 mg 07/22/18 14:00 08/05/18 08:49 Wellbutrin Xl PO 150 mg DAILY [facility] Administration Sodium Chloride 3,000 ml/ 0 ml 07/29/18 23:03 08/02/18 05:52 Aminocaproic Acid 3,000 mg IRRIGATION 3,000 irrig.soln Q24H PRN Administration TO KEEP URINE CLEAR Diazepam 5 mg 07/22/18 13:57 08/04/18 23:23 Valium PO 5 mg DAILY PRN Administration Anxiety Docusate Sodium 100 mg 07/25/18 15:45 08/05/18 13:13 Colace PO 100 mg TID [facility] Administration Folic Acid 1 mg 07/24/18 12:00 08/05/18 08:49 Folic Acid PO 1 mg DAILY [facility] Administration Gabapentin 300 mg 07/23/18 21:00 08/05/18 08:49 Neurontin PO 300 mg BID [facility] Administration Hydrocortisone Acetate 25 mg 08/05/18 17:13 Hemorrhoidal Hc Supp RECTAL TID PRN Acute Pain Hydromorphone HCl 0.5 mg 07/26/18 19:30 08/05/18 16:45 Dilaudid Pf Inj IV.PUSH 0.5 mg Q4H PRN Administration BREAKTHROUGH PAIN Levofloxacin/Dextrose 500 mg in 100 mls @ 100 mls/hr 07/31/18 16:00 08/04/18 17:45 Levaquin 500 Mg Premix Inj IV.SIG Infused Q48H [facility] Infusion Meropenem 1,000 mg/ Sodium 100 mls @ 200 mls/hr 07/31/18 20:00 08/05/18 11:38 Chloride IV.SIG Infused Q12H [facility] Infusion Latanoprost 1 drop 07/22/18 21:00 08/04/18 21:49 Xalatan 0.005% Opth Drops EACH EYE 1 drop HS [facility] Administration Lidocaine HCl 1 applicatio 08/05/18 17:15 Xylocaine 5% Oint TOPICAL Q8H PRN Acute Pain Oxycodone HCl 5 mg 07/22/18 14:46 08/05/18 13:13 Roxicodone PO 5 mg Q4H PRN Administration breakthrough pain Oxycodone HCl 20 mg 08/01/18 20:00 08/05/18 08:48 Oxycontin Cr PO 20 mg Q12H [facility] Administration Pom: (Lubiprostone [ 0 each 07/22/18 21:00 Amitiza] 24 Mcg) PO BID [facility] Tenofovir Disoproxil Fumarate 300 mg 07/24/18 09:00 08/05/18 08:49 Viread PO 300 mg EVERY OTHER DAY [facility] Administration Tolterodine Tartrate 4 mg 07/24/18 13:00 08/05/18 08:49 Detrol La PO 4 mg DAILY [facility] Administration Vitamin D 2,000 unit 07/25/18 09:00 08/05/18 08:49 Vitamin D3 PO 2,000 unit DAILY [facility] Administration Objective Remarks: IVONNE RRR Clear lungs Palacios is in place, urine is light pink 07/27 Abd:soft,nt,nd Palacios on CBI; now with pink urine; clots cleared. 07/28 Abd:soft,nt, nd Palacios with clear urine. 07/29 Abd:soft,nt,nd Palacios with gross hematuria with clots. 07/30 Abd:soft,nt,nd Palacios; now clear. 07/31 Abd:soft,nt,nd Palacios; now clear. 08/01 Abd:soft,nt,nd Palacios; now clear. 08/02 Abd:soft,nt,nd Palacios: clear. 08/04 Abd:soft,nt,nd Palacios: clear. 08/05 Abdomen soft, with irrigant leakage noted around suprapubic catheter Urine output medium red in color Assessment and Plan - Plan 73y.o M with other medical issues listed in HPI Urology consulted for hematuria, which is resolving now No additional recommendations, same as below - Continue care as per primary team - No acute intervention needed - Hematuria can be related to self cath and UTI as well as to previous radiation. - Continue current treatment, follow ID recommendations - Manual irrigation of the bladder may help to get rid of bladder clots/debris seen in the bladder on Sono. Do it BID - Pt to see his urologist after d/c for further management, may need cysto as outpt. 07/27/18 73 y.o male with metastatic CaP with gross hematuria 24F 3-way palacios in place; clots irrigated and CBI started Hold SQ Heparin; will order SCD's instead Will need cystoscopy at later date and may need HBO as outpt to help RX Radiation cystitis Will follow. 07/28 73 y.o male with metastatic CaP with gross hematuria 24F 3-way palacios in place; urine now clear Cysto as outpt. 07/29 73 y.o male with metastatic CaP with gross hematuria Will need cysto with fulguration of bleeding in OR today Continue NPO. 07/30 73 y.o male with metastatic CaP with gross hematuria Continue supportive measures/transfusion/Amicar CBI To d/w Radiation oncology tomorrow. D/W Dr. Gant 07/31 73 y.o male with metastatic CaP with gross hematuria Continue supportive measures/transfusion/Amicar CBI Possible XRT therapy for control of bleeding. 08/01 73 y.o male with metastatic CaP with gross hematuria Urine now clearing on Amicar CBI XRT to start soon For SP tube insertion on . 08/02 73 y.o male with metastatic CaP with gross hematuria Urine now clearing on Amicar CBI XRT to start soon For SP tube insertion tomorrow. 08/04 Stable s/p SP tube insertion Continue CBI over the weekend Hopeful void trial Tuesday AM if urine remains clear. 08/05 Ongoing hematuria with subsequent blockage of Palacios catheter secondary to clot formation. Suprapubic catheter repositioned and three-way Palacios catheter exchanged for a two-way 20 [place] Palacios CBI reimplemented
[2018-08-05] MEDS: Acetaminophen 325 MG Tablet PO PRN (20:45)
[2018-08-06] MEDS: Latanoprost 0.005% Opth Drops 2.5 ML Bottle EACH EYE SCH ×2 (02:35→20:51)
--- NOTE | 2018-08-06 08:32 | P.PNURO ---
Subjective Patient symptoms today: Feeling much better this morning. Reports that the CBI has been draining well with resolution of the hematuria. Objective Vital Signs: Vital Signs 08/05/18 08:53 08/05/18 12:00 08/05/18 16:00 Temperature 98.4 F 97.1 F L 98.1 F Pulse Rate 69 68 74 Respiratory Rate 16 22 20 Blood Pressure 117/63 123/68 116/75 Pulse Oximetry 95 96 97 08/05/18 20:00 08/05/18 21:00 08/06/18 00:00 Temperature 102 F H 98.8 F 98 F Pulse Rate 94 H 84 Respiratory Rate 16 18 Blood Pressure 137/67 103/51 L Pulse Oximetry 95 94 L 08/06/18 04:00 Temperature 98.8 F Pulse Rate 88 Respiratory Rate 18 Blood Pressure 126/65 Pulse Oximetry 98 Intake & Output 08/05/18 08/06/18 08/06/18 18:59 06:59 18:59 Intake Total 100 / 100 1060 / 1060 Output Total 2350 / 2350 Balance -2250 / -2250 1060 / 1060 Intake: IV 100 / 100 100 / 100 Merrem Inj 1,000 MG In NS Inj 100 / 100 100 / 100 100 ML @ 200 mls/hr IV.SIG Q12H [facility] Rx#:[id number] Oral 960 / 960 Output: Urine Amount (Catheter) 2350 / 2350 Suprapubic 2350 / 2350 Other: Bladder Irrigation Fluid - Amount Instilled Indwelling Urethral Catheter 12,000 Bladder Irrigation Fluid - Amount Drained Indwelling Urethral Catheter 12,950 Date of Last Bowel Movement 08/06/18 # Bowel Movements 1 Result Diagrams: 08/05/18 04:42 08/05/18 04:42 Other Results: Abdomen soft, nondistended, nontender CBI running at a slow rate with yellow output. Procedures: Suprapubic catheter gently repositioned after balloon deflated. Balloon subsequently reinflated with 10 cc sterile water. Catheter then secured to lower abdomen with fixation device. Three-way Palacios catheter then replaced with a 20 Amharic two-way Palacios catheter and subsequently irrigated with evacuation of a few small clots. CBI then re- implemented with inflow via the Palacios and outflow via the suprapubic catheter and titrated to light pink return. Medications and IVs: Active Medications Generic Name Dose Route Start Last Admin Trade Name Freq PRN Reason Stop Dose Admin Acetaminophen 650 mg 07/22/18 13:55 08/05/18 20:45 Tylenol PO 650 mg Q4H PRN Administration fever Acetaminophen 650 mg 07/29/18 08:29 08/01/18 20:35 Tylenol PO 650 mg Q4H PRN Administration SEE LABEL COMMENTS Belladonna Alkaloids/Opium 60 mg 08/02/18 15:30 08/02/18 23:41 B & O Supp RECTAL 60 mg Q6HR PRN Administration BLADDER SPASM Bupropion HCl 150 mg 07/22/18 14:00 08/05/18 08:49 Wellbutrin Xl PO 150 mg DAILY [facility] Administration Sodium Chloride 3,000 ml/ 0 ml 07/29/18 23:03 08/02/18 05:52 Aminocaproic Acid 3,000 mg IRRIGATION 3,000 irrig.soln Q24H PRN Administration TO KEEP URINE CLEAR Diazepam 5 mg 07/22/18 13:57 08/04/18 23:23 Valium PO 5 mg DAILY PRN Administration Anxiety Docusate Sodium 100 mg 07/25/18 15:45 08/05/18 19:54 Colace PO Not Given TID [facility] Folic Acid 1 mg 07/24/18 12:00 08/05/18 08:49 Folic Acid PO 1 mg DAILY [facility] Administration Gabapentin 300 mg 07/23/18 21:00 08/05/18 20:45 Neurontin PO 300 mg BID [facility] Administration Hydrocortisone Acetate 25 mg 08/05/18 17:13 Hemorrhoidal Hc Supp RECTAL TID PRN Acute Pain Hydromorphone HCl 0.5 mg 07/26/18 19:30 08/05/18 16:45 Dilaudid Pf Inj IV.PUSH 0.5 mg Q4H PRN Administration BREAKTHROUGH PAIN Levofloxacin/Dextrose 500 mg in 100 mls @ 100 mls/hr 07/31/18 16:00 08/04/18 17:45 Levaquin 500 Mg Premix Inj IV.SIG Infused Q48H [facility] Infusion Meropenem 1,000 mg/ Sodium 100 mls @ 200 mls/hr 07/31/18 20:00 08/05/18 21:20 Chloride IV.SIG Infused Q12H [facility] Infusion Latanoprost 1 drop 07/22/18 21:00 08/06/18 02:35 Xalatan 0.005% Opth Drops EACH EYE 1 drop HS [facility] Administration Lidocaine HCl 1 applicatio 08/05/18 17:15 08/05/18 20:46 Xylocaine 5% Oint TOPICAL 1 applicatio Q8H PRN Administration Acute Pain Oxycodone HCl 5 mg 07/22/18 14:46 08/06/18 04:30 Roxicodone PO 5 mg Q4H PRN Administration breakthrough pain Oxycodone HCl 20 mg 08/01/18 20:00 08/05/18 20:45 Oxycontin Cr PO 20 mg Q12H [facility] Administration Pom: (Lubiprostone [ 0 each 07/22/18 21:00 Amitiza] 24 Mcg) PO BID [facility] Tenofovir Disoproxil Fumarate 300 mg 07/24/18 09:00 08/05/18 08:49 Viread PO 300 mg EVERY OTHER DAY [facility] Administration Tolterodine Tartrate 4 mg 07/24/18 13:00 08/05/18 08:49 Detrol La PO 4 mg DAILY [facility] Administration Vitamin D 2,000 unit 07/25/18 09:00 08/05/18 08:49 Vitamin D3 PO 2,000 unit DAILY [facility] Administration Objective Remarks: IVONNE RRR Clear lungs Palacios is in place, urine is light pink 07/27 Abd:soft,nt,nd Palacios on CBI; now with pink urine; clots cleared. 07/28 Abd:soft,nt, nd Palacios with clear urine. 07/29 Abd:soft,nt,nd Palacios with gross hematuria with clots. 07/30 Abd:soft,nt,nd Plaacios; now clear. 07/31 Abd:soft,nt,nd Palacios; now clear. 08/01 Abd:soft,nt,nd Palacios; now clear. 08/02 Abd:soft,nt,nd Palacios: clear. 08/04 Abd:soft,nt,nd Palacios: clear. 08/05 Abdomen soft, with irrigant leakage noted around suprapubic catheter Urine output medium red in color Assessment and Plan - Plan 73y.o M with other medical issues listed in HPI Urology consulted for hematuria, which is resolving now No additional recommendations, same as below - Continue care as per primary team - No acute intervention needed - Hematuria can be related to self cath and UTI as well as to previous radiation. - Continue current treatment, follow ID recommendations - Manual irrigation of the bladder may help to get rid of bladder clots/debris seen in the bladder on Sono. Do it BID - Pt to see his urologist after d/c for further management, may need cysto as outpt. 07/27/18 73 y.o male with metastatic CaP with gross hematuria 24F 3-way palacios in place; clots irrigated and CBI started Hold SQ Heparin; will order SCD's instead Will need cystoscopy at later date and may need HBO as outpt to help RX Radiation cystitis Will follow. 07/28 73 y.o male with metastatic CaP with gross hematuria 24F 3-way palacios in place; urine now clear Cysto as outpt. 07/29 73 y.o male with metastatic CaP with gross hematuria Will need cysto with fulguration of bleeding in OR today Continue NPO. 07/30 73 y.o male with metastatic CaP with gross hematuria Continue supportive measures/transfusion/Amicar CBI To d/w Radiation oncology tomorrow. D/W Dr. Gant 07/31 73 y.o male with metastatic CaP with gross hematuria Continue supportive measures/transfusion/Amicar CBI Possible XRT therapy for control of bleeding. 08/01 73 y.o male with metastatic CaP with gross hematuria Urine now clearing on Amicar CBI XRT to start soon For SP tube insertion on . 08/02 73 y.o male with metastatic CaP with gross hematuria Urine now clearing on Amicar CBI XRT to start soon For SP tube insertion tomorrow. 08/04 Stable s/p SP tube insertion Continue CBI over the weekend Hopeful void trial Tuesday if urine remains clear. 08/05 Ongoing hematuria with subsequent blockage of Palacios catheter secondary to clot formation. Suprapubic catheter repositioned and three-way Palacios catheter exchanged for a two-way 20 Amharic Palacios CBI reimplemented 08/06 CBI running well with resolution of the hematuria. We will continue with CBI at a slow rate and titrate up if necessary.
[2018-08-06] MEDS: oxyCODONE 10 MG Controlled Release Tablet PO SCH ×2 (09:05→20:46)
[2018-08-06] MEDS: Calcium Carbonate 500 MG Tablet PO SCH ×2 (09:05→20:49)
[2018-08-06] MEDS: Tolterodine Tartrate LA 4 MG Capsule PO SCH (09:05)
[2018-08-06] MEDS: Gabapentin 300 MG Capsule PO SCH ×2 (09:06→20:46)
[2018-08-06] MEDS: Folic Acid 1 MG Tablet PO SCH (09:06)
[2018-08-06] MEDS: Docusate Sodium 100 MG Capsule PO SCH ×3 (09:06→17:19)
[2018-08-06 09:24] LABS: Baso # (Auto) 0.2 th/mm3 (0.0-0.2); Baso % (Auto) 1.5 % (0.0-2.0); Eos # (Auto) 0.1 th/mm3 (0.0-0.4); Eos % (Auto) 1.2 % (0.0-4.0); Hematocrit 29.2 % (39.0-51.0); Hemoglobin 9.8 gm/dL (13.0-17.0); Lymph # (Auto) 1.9 th/mm3 (1.0-4.8); Lymph % (Auto) 15.8 % (9.0-44.0); Mean Corpuscular HGB Conc 33.7 % (32.0-36.0); Mean Corpuscular Hemoglobin 30.7 pg (27.0-34.0); Mean Platelet Volume 6.7 fL (7.0-11.0); Mono # (Auto) 1.2 th/mm3 (0.0-0.9); Neut # (Auto) 8.6 th/mm3 (1.8-7.7); Neut % (Auto) 71.5 % (16.0-70.0); Platelet Count 419 th/mm3 (150-450); Red Cell Distribution Width 15.7 % (11.6-17.2); White Blood Count 12.1 th/mm3 (4.0-11.0)
[2018-08-06] MEDS: buPROPion 150 MG XL 24 HR Tablet PO SCH (09:33)
[2018-08-06 09:48] LABS: Calcium 7.2 mg/dL (8.5-10.1); Carbon Dioxide 25.5 meq/L (21.0-32.0); Potassium 3.6 meq/L (3.5-5.1)
--- NOTE | 2018-08-06 10:00 | P.PNID ---
Subjective Remarks: ID Coverage 73 yo male who was diagnosed with slowly growing prostate cancer in 2008 sp surgery, had seeds put in but did not have XRT He apparently was found to have metastatic cancer 2 yrs ago He has mets to bones He is on Lupron He c/o pelvic and perirectal pain x 2 mos and intermittent hematuria x 6 weeks He has fever for 6 weeks up to 102 F range He was brought to hospital S/P fall He was self cathing but after admission he has palacios Abnormal UA (pyuria, hematuria) with Staph epi in culture Ct with bilateral hydro and abnormal bladder S/P SPC placement 08/03 Has been getting CBI for hematuria Notes reviewed D/W RN Continues to have fevers Repeat C/S pending Some pain at cath site Also with rectal pain Getting CBI through palacios, drains in SPC - urine looks clear currently Creatinine remains elevated Antibiotics: meropenem levaquin Past Medical History: Hep B Hypertension Kidney disease Prostate cancer with bone mets S/P hip surgery Allergies/Adverse Reactions: Allergies morphine Allergy (Severe, Verified 07/22/18 11:48) MORPHINE ALLERGY ADDED 12/19/07 @1500 - N/V Objective Vital Signs 08/05/18 12:00 08/05/18 16:00 08/05/18 20:00 Temperature 97.1 F L 98.1 F 102 F H Pulse Rate 68 74 94 H Respiratory Rate 22 20 16 Blood Pressure 123/68 116/75 137/67 Pulse Oximetry 96 97 95 08/05/18 21:00 08/06/18 00:00 08/06/18 04:00 Temperature 98.8 F 98 F 98.8 F Pulse Rate 84 88 Respiratory Rate 18 18 Blood Pressure 103/51 L 126/65 Pulse Oximetry 94 L 98 08/06/18 08:00 Temperature 99.3 F Pulse Rate 72 Respiratory Rate 20 Blood Pressure 127/60 Pulse Oximetry 96 Intake & Output 08/05/18 08/06/18 08/06/18 18:59 06:59 18:59 Intake Total 100 / 100 1060 / 1060 Output Total 2350 / 2350 Balance -2250 / -2250 1060 / 1060 Intake: IV 100 / 100 100 / 100 Merrem Inj 1,000 MG In NS Inj 100 / 100 100 / 100 100 ML @ 200 mls/hr IV.SIG Q12H [facility] Rx#:[id number] Oral 960 / 960 Output: Urine Amount (Catheter) 2350 / 2350 Suprapubic 2350 / 2350 Other: Bladder Irrigation Fluid - Amount Instilled Indwelling Urethral Catheter 12,000 Bladder Irrigation Fluid - Amount Drained Indwelling Urethral Catheter 12,950 Date of Last Bowel Movement 08/06/18 08/06/18 # Bowel Movements 1 08/05/18 08:30 Clean Catch Urine Urine Culture - Pending 08/02/18 00:55 Blood - Peripheral Aerobic Blood Culture - Preliminary No growth in 3 days 08/02/18 00:55 Blood - Peripheral Anaerobic Blood Culture - Preliminary No growth in 3 days 08/02/18 01:00 Blood - Peripheral Aerobic Blood Culture - Preliminary No growth in 3 days 08/02/18 01:00 Blood - Peripheral Anaerobic Blood Culture - Preliminary No growth in 3 days 08/05/18 10:41 Blood - Peripheral Aerobic Blood Culture - Pending 08/05/18 10:41 Blood - Peripheral Anaerobic Blood Culture - Pending 08/05/18 08:30 Blood - Peripheral Aerobic Blood Culture - Pending 08/05/18 08:30 Blood - Peripheral Anaerobic Blood Culture - Pending 07/30/18 07:50 Blood - Peripheral Aerobic Blood Culture - Final No growth in 5 days 07/30/18 07:50 Blood - Peripheral Anaerobic Blood Culture - Final No growth in 5 days 07/30/18 07:54 Blood - Peripheral Aerobic Blood Culture - Final No growth in 5 days 07/30/18 07:54 Blood - Peripheral Anaerobic Blood Culture - Final No growth in 5 days Lab - Hematology Results 08/05/18 08/06/18 04:42 09:10 WBC 7.3 12.1 H RBC 2.53 L 3.20 L Hgb 7.7 L 9.8 L D Hct 23.4 L 29.2 L MCV 92.7 91.0 MCH 30.6 30.7 MCHC 33.0 33.7 RDW 15.4 15.7 Plt Count 269 419 D MPV 6.6 L 6.7 L Prelim Diff (Auto) Slide review pending Neut % (Auto) 72.9 H 71.5 H Lymph % (Auto) 12.6 15.8 Slope % (Auto) 12.2 H 10.0 H Eos % (Auto) 2.0 1.2 Baso % (Auto) 0.3 1.5 Neut # (Auto) 5.3 8.6 H Lymph # (Auto) 0.9 L 1.9 Slope # (Auto) 0.9 1.2 H Eos # (Auto) 0.1 0.1 Baso # (Auto) 0.0 0.2 WBC Differential . Differential Comment Auto diff final . Lab - Chemistry Results 08/05/18 08/06/18 04:42 09:10 Sodium 144 139 Potassium 3.6 3.6 Chloride 107 106 Carbon Dioxide 27.9 25.5 Anion Gap 9 8 BUN 24 H 25 H Creatinine 2.23 H 2.24 H Estimated GFR 29 L 29 L Random Glucose 99 116 H Calcium 6.5 L* 7.2 L* Prot Corrected Calcium 7.2 L* Total Bilirubin 0.3 AST 23 ALT 13 Alkaline Phosphatase 72 Total Protein 5.7 L Albumin 1.6 L Imaging: ITS Impressions Chest X-Ray 07/22/18 11:00 CONCLUSION: The lungs are grossly clear. Sclerotic metastatic disease. Abdomen/Bladder Ultrasound 07/23/18 00:00 CONCLUSION: 1. Significant debris within the bladder likely blood. Mild bilateral hydronephrosis left greater than right. Abdomen/Pelvis CT 07/24/18 00:00 CONCLUSION: 1. Abnormal bladder with increased density consistent with blood products and/ or tumor. A Palacios catheter is present with a small amount of air. 2. New mild to moderate bilateral hydronephrosis. Small bilateral pleural effusions right greater than left. 3. Extensive sclerotic metastatic disease with interval progression. Physical Exam: GENERAL: NAD awake and alert. SKIN: Warm and dry. No rash HEAD: Atraumatic. Normocephalic. EYES: Pupils equal and round. No scleral icterus. No injection or drainage. ENT: No nasal bleeding or discharge. Mucous membranes pink and moist. NECK: Trachea midline. No JVD. CARDIOVASCULAR: Regular rate and rhythm. RESPIRATORY: No accessory muscle use. Clear to auscultation. Breath sounds equal bilaterally. GASTROINTESTINAL: Abdomen soft, tender to palpation in lower quadrants w/o guarding or rebound SPC site with dry dressing, urine looks clear : palacios in place getting CBI MUSCULOSKELETAL: Extremities without clubbing, cyanosis, No calf tenderness. NEUROLOGICAL: Awake and alert. No obvious cranial nerve deficits. Motor grossly within normal limits. Five out of 5 muscle strength in the arms and legs. Normal speech. PSYCHIATRIC: Appropriate mood and affect; insight and judgment normal. Assessment and Plan - Plan Impression Metastatic prostate cancer FUO (6 weeks) Hematuria Probably UTI - Staph epi not a typical pathogen GENI - worse Persistent fever and rectal pain - proctitis? Recommendation Continue levaquin Continue meropenem Follow new C/S CMV PCR consult GI to scope for persistent rectal pain Follow temps Monitor progress D/W RM
[2018-08-06 10:20] LABS: Total Protein 6.9 g/dL (6.4-8.2)
[2018-08-06 10:25] LABS: Platelet Estimate Normal (Normal); Platelet Morphology Normal (Normal)
--- NOTE | 2018-08-06 11:02 | P.PNNP ---
Subjective Interval history: Renal function is about the same. Physical Exam Vital signs: Vital Signs 08/05/18 12:00 08/05/18 16:00 08/05/18 20:00 Temperature 97.1 F L 98.1 F 102 F H Pulse Rate 68 74 94 H Respiratory Rate 22 20 16 Blood Pressure 123/68 116/75 137/67 Pulse Oximetry 96 97 95 08/05/18 21:00 08/06/18 00:00 08/06/18 04:00 Temperature 98.8 F 98 F 98.8 F Pulse Rate 84 88 Respiratory Rate 18 18 Blood Pressure 103/51 L 126/65 Pulse Oximetry 94 L 98 08/06/18 08:00 Temperature 99.3 F Pulse Rate 72 Respiratory Rate 20 Blood Pressure 127/60 Pulse Oximetry 96 Intake & Output 08/05/18 08/06/18 08/06/18 18:59 06:59 18:59 Intake Total 100 / 100 1060 / 1060 Output Total 2350 / 2350 Balance -2250 / -2250 1060 / 1060 Intake: IV 100 / 100 100 / 100 Merrem Inj 1,000 MG In NS Inj 100 / 100 100 / 100 100 ML @ 200 mls/hr IV.SIG Q12H [facility] Rx#:[id number] Oral 960 / 960 Output: Urine Amount (Catheter) 2350 / 2350 Suprapubic 2350 / 2350 Other: Bladder Irrigation Fluid - Amount Instilled Indwelling Urethral Catheter 12,000 Bladder Irrigation Fluid - Amount Drained Indwelling Urethral Catheter 12,950 Date of Last Bowel Movement 08/06/18 08/06/18 # Bowel Movements 1 Narrative: Frail, elderly. Lungs are clear bilaterally, unlabored breathing Heart sounds regular rate rhythm Suprapubic catheter in place. Also has urethral catheter. - Urinary Catheter Management Indwelling Urethral Catheter Cath placed during this visit: yes Reason for continuing: Gross Hematuria Insertion date: 08/05/18 Insertion time: 18:00 Suprapubic Cath placed during this visit: yes Reason for continuing: Gross Hematuria Insertion date: 08/03/18 3-way Urethral Cath placed during this visit: yes Reason for continuing: Gross Hematuria Insertion date: 08/03/18 Assessment and Plan - Assessment (1) Acute on chronic kidney failure Code(s): N17.9 - Acute kidney failure, unspecified; N18.9 - Chronic kidney disease, unspecified Status: Acute Plan: patient's renal function is stable, this may be a new baseline. Monitor. Avoid nephrotoxic agents. Monitor urine output. (2) Gross hematuria Code(s): R31.0 - Gross hematuria Status: Acute Plan: Urology following. Possible bleeding from prostate. May have prostatitis. Underwent suprapubic catheter placement. Being followed by Oncology and urology. (3) Prostate cancer metastatic to bone Code(s): C61 - Malignant neoplasm of prostate; C79.51 - Secondary malignant neoplasm of bone Status: Acute Plan: Hematology/Oncology note was reviewed. (4) Acute UTI Code(s): N39.0 - Urinary tract infection, site not specified Status: Acute Plan: Possible prostatitis. On antibiotic.
--- NOTE | 2018-08-06 12:58 | P.PNONC ---
Subjective Interval history: T-max 102 last night Patient reports he feels much better today Suprapubic catheter insertion no longer has drainage CBI continues Engel catheter draining clear yellow urine Objective Vital Signs/Intake & Output: Vital Signs 08/05/18 16:00 08/05/18 20:00 08/05/18 21:00 Temperature 98.1 F 102 F H 98.8 F Pulse Rate 74 94 H Respiratory Rate 20 16 Blood Pressure 116/75 137/67 Pulse Oximetry 97 95 08/06/18 00:00 08/06/18 04:00 08/06/18 08:00 Temperature 98 F 98.8 F 99.3 F Pulse Rate 84 88 72 Respiratory Rate 18 18 20 Blood Pressure 103/51 L 126/65 127/60 Pulse Oximetry 94 L 98 96 08/06/18 11:52 Temperature 98.9 F Pulse Rate 67 Respiratory Rate 20 Blood Pressure 110/57 L Pulse Oximetry 95 Intake & Output 08/05/18 08/06/18 08/06/18 18:59 06:59 18:59 Intake Total 100 / 100 1060 / 1060 100 / 100 Output Total 2350 / 2350 3600 / 3600 Balance -2250 / -2250 1060 / 1060 -3500 / -3500 Intake: IV 100 / 100 100 / 100 100 / 100 Merrem Inj 1,000 MG In NS Inj 100 / 100 100 / 100 100 / 100 100 ML @ 200 mls/hr IV.SIG Q12H [facility] Rx#:[id number] Oral 960 / 960 Output: Urine Amount (Catheter) 2350 / 2350 3600 / 3600 Suprapubic 2350 / 2350 3600 / 3600 Other: Bladder Irrigation Fluid - Amount Instilled Indwelling Urethral Catheter 12,000 Suprapubic 6,000 Bladder Irrigation Fluid - Amount Drained Indwelling Urethral Catheter 12,950 Date of Last Bowel Movement 08/06/18 08/06/18 # Bowel Movements 1 Result Diagrams: 08/06/18 09:10 08/06/18 09:10 Laboratory Results: Laboratory Results - last 24 hr 08/06/18 08/06/18 09:10 09:10 WBC 12.1 H RBC 3.20 L Hgb 9.8 L D Hct 29.2 L MCV 91.0 MCH 30.7 MCHC 33.7 RDW 15.7 Plt Count 419 D MPV 6.7 L Prelim Diff (Auto) Slide review pending Neut % (Auto) 71.5 H Lymph % (Auto) 15.8 [place] % (Auto) 10.0 H Eos % (Auto) 1.2 Baso % (Auto) 1.5 Neut # (Auto) 8.6 H Lymph # (Auto) 1.9 [place] # (Auto) 1.2 H Eos # (Auto) 0.1 Baso # (Auto) 0.2 WBC Differential . Diff Scan Auto diff confirmed Differential Comment . Platelet Estimate Normal Platelet Morphology Normal Sodium 139 Potassium 3.6 Chloride 106 Carbon Dioxide 25.5 Anion Gap 8 BUN 25 H Creatinine 2.24 H Estimated GFR 29 L Random Glucose 116 H Calcium 7.2 L* Prot Corrected Calcium 7.3 L* Total Protein 6.9 D Culture Results: Microbiology 08/05/18 10:41 Aerobic Blood Culture - Preliminary Blood - Peripheral No growth in 1 day Anaerobic Blood Culture - Preliminary No growth in 1 day 08/05/18 08:30 Aerobic Blood Culture - Preliminary Blood - Peripheral No growth in 1 day Anaerobic Blood Culture - Preliminary No growth in 1 day 08/02/18 00:55 Aerobic Blood Culture - Preliminary Blood - Peripheral No growth in 4 days Anaerobic Blood Culture - Preliminary No growth in 4 days 08/02/18 01:00 Aerobic Blood Culture - Preliminary Blood - Peripheral No growth in 4 days Anaerobic Blood Culture - Preliminary No growth in 4 days 07/30/18 07:50 Aerobic Blood Culture - Final Blood - Peripheral No growth in 5 days Anaerobic Blood Culture - Final No growth in 5 days 07/30/18 07:54 Aerobic Blood Culture - Final Blood - Peripheral No growth in 5 days Anaerobic Blood Culture - Final No growth in 5 days Medications: Active Medications Generic Name Dose Route Start Last Admin Trade Name Freq PRN Reason Stop Dose Admin Acetaminophen 650 mg 07/22/18 13:55 08/05/18 20:45 Tylenol PO 650 mg Q4H PRN Administration fever Acetaminophen 650 mg 07/29/18 08:29 08/01/18 20:35 Tylenol PO 650 mg Q4H PRN Administration SEE LABEL COMMENTS Belladonna Alkaloids/Opium 60 mg 08/02/18 15:30 08/02/18 23:41 B & O Supp RECTAL 60 mg Q6HR PRN Administration BLADDER SPASM Bupropion HCl 150 mg 07/22/18 14:00 08/06/18 09:33 Wellbutrin Xl PO 150 mg DAILY MILDRED Administration Sodium Chloride 3,000 ml/ 0 ml 07/29/18 23:03 08/02/18 05:52 Aminocaproic Acid 3,000 mg IRRIGATION 3,000 irrig.soln Q24H PRN Administration TO KEEP URINE CLEAR Diazepam 5 mg 07/22/18 13:57 08/04/18 23:23 Valium PO 5 mg DAILY PRN Administration Anxiety Docusate Sodium 100 mg 07/25/18 15:45 08/06/18 12:01 Colace PO Not Given TID MILDRED Folic Acid 1 mg 07/24/18 12:00 08/06/18 09:06 Folic Acid PO 1 mg DAILY MILDRED Administration Gabapentin 300 mg 07/23/18 21:00 08/06/18 09:06 Neurontin PO 300 mg BID MILDRED Administration Hydromorphone HCl 0.5 mg 07/26/18 19:30 08/05/18 16:45 Dilaudid Pf Inj IV.PUSH 0.5 mg Q4H PRN Administration BREAKTHROUGH PAIN Levofloxacin/Dextrose 500 mg in 100 mls @ 100 mls/hr 07/31/18 16:00 08/04/18 17:45 Levaquin 500 Mg Premix Inj IV.SIG Infused Q48H [facility]DRED Infusion Meropenem 1,000 mg/ Sodium 100 mls @ 200 mls/hr 07/31/18 20:00 08/06/18 11:58 Chloride IV.SIG Infused Q12H [facility] Infusion Latanoprost 1 drop 07/22/18 21:00 08/06/18 02:35 Xalatan 0.005% Opth Drops EACH EYE 1 drop HS MILDRED Administration Lidocaine HCl 1 applicatio 08/05/18 17:15 08/05/18 20:46 Xylocaine 5% Oint TOPICAL 1 applicatio Q8H PRN Administration Acute Pain Oxycodone HCl 5 mg 07/22/18 14:46 08/06/18 09:06 Roxicodone PO 5 mg Q4H PRN Administration breakthrough pain Oxycodone HCl 20 mg 08/01/18 20:00 08/06/18 09:05 Oxycontin Cr PO 20 mg Q12H [facility] Administration Tenofovir Disoproxil Fumarate 300 mg 07/24/18 09:00 09/22/18 08:49 Viread PO 300 mg EVERY OTHER DAY MILDRED Administration Tolterodine Tartrate 4 mg 07/24/18 13:00 08/06/18 09:05 Detrol La PO 4 mg DAILY MILDRED Administration Vitamin D 2,000 unit 07/25/18 09:00 08/06/18 09:06 Vitamin D3 PO 2,000 unit DAILY MILDRED Administration Objective Remarks: GENERAL: Older male resting in bed in no obvious distress. at bedside SKIN: Warm and dry. Dressing dry and intact from suprapubic catheter insertion site superintendent: Normocephalic. EYES: No scleral icterus. No injection or drainage. NECK: Supple, trachea midline. No JVD or lymphadenopathy. CARDIOVASCULAR: Regular rate and rhythm without murmurs. RESPIRATORY: Breath sounds equal bilaterally. No accessory muscle use. GASTROINTESTINAL: Abdomen soft, non-tender, nondistended. : Suprapubic catheter in place with continual bladder irrigation fluid infusing. Urethral catheter draining to bedside bag with clear yellow urine. EXTREMITIES: No cyanosis. Mild edema to bilateral lower extremities MUSCULOSKELETAL: Generalized weakness NEUROLOGICAL: No obvious focal deficit. Awake, alert, and oriented x3. Assessment/Plan - Plan Mr. Queen Is a 73-year-old man with a diagnosis of metastatic prostate carcinoma , he has had an excellent response to combination therapy consisting of leuprolide and Xtandi. His PSA levels have been less than 0.1 ng/dL over the past several months. He has extensive metastatic disease burden involving his axial skeleton especially his pelvis. Most recent PET CT scan revealed most of his previously active metastatic disease to be dormant, he however had intense hypermetabolic activity localized to the prostate and to the bladder. In late June he underwent cystoscopy for workup of hematuria with his former urologist Dr. Parmar, no obvious cause for hematuria was identified. He is now in the hospital with fevers, hematuria and pelvic pain. Clinically he has suspected prostatitis and is on broad-spectrum antibiotics with Zosyn and levofloxacin. Urine cultures and blood cultures are negative thus far other than forced staph epidermidis. CT scan of the abdomen/pelvis revealed no obvious cause for the hematuria. Recommendations: 1. Patient continues to spike fevers. This is possibly due to prostatitis. Blood cultures drawn yesterday are negative 1 day. Urine culture pending. 2. He is no longer having hematuria. 3. Pain control, continue long and short acting opioids. Patient feels comfortable at this time. 4. Metastatic prostate carcinoma, PSA less than 0.1; plans to resume Xtandi upon discharge from the hospital. He will follow-up with radiation as well. 5. Hemoglobin much improved today at 9.8 - Attending Statement The exam, history, and the medical decision-making described in the above note were completed with the assistance of the mid-level provider. I reviewed and agree with the findings presented. I attest that I had a [id number] encounter with the patient on the same day, and personally performed and documented my assessment and findings in the medical record. Patient states that urine is flowing fairly well like a faucet No more hematuria Still has some leakage around the suprapubic catheter, dressing around the exit site is wet with urine. Patient had fever earlier in the morning but now afebrile Blood cultures and urine culture repeated today and results are pending Dr. Gant will resume care in the morning.
[2018-08-06] MEDS: Sodium Chloride 0.9% Irr Bag 3,000 ML, Aminocaproic Acid Inj 3,000 MG IRRIGATION PRN ×2 (13:28)
[2018-08-06] MEDS: Belladonna Alkaloid/Opium 60 MG Supp RECTAL PRN (13:53)
--- NOTE | 2018-08-06 14:55 | P.PN ---
Subjective Interval history: Nursing denies any deterioration since last night. Patient himself feels much better today than yesterday. Had a temp of 102 yesterday around 8 PM again Patient does complain of having some back pain which his is attributing to lying in bed. Physical Exam Vital signs: Vital Signs 08/05/18 16:00 08/05/18 20:00 08/05/18 21:00 Temperature 98.1 F 102 F H 98.8 F Pulse Rate 74 94 H Respiratory Rate 20 16 Blood Pressure 116/75 137/67 Pulse Oximetry 97 95 08/06/18 00:00 08/06/18 04:00 08/06/18 08:00 Temperature 98 F 98.8 F 99.3 F Pulse Rate 84 88 72 Respiratory Rate 18 18 20 Blood Pressure 103/51 L 126/65 127/60 Pulse Oximetry 94 L 98 96 08/06/18 11:52 Temperature 98.9 F Pulse Rate 67 Respiratory Rate 20 Blood Pressure 110/57 L Pulse Oximetry 95 Intake & Output 08/05/18 08/06/18 08/06/18 18:59 06:59 18:59 Intake Total 100 / 100 1060 / 1060 100 / 100 Output Total 2350 / 2350 3600 / 3600 Balance -2250 / -2250 1060 / 1060 -3500 / -3500 Intake: IV 100 / 100 100 / 100 100 / 100 Merrem Inj 1,000 MG In NS Inj 100 / 100 100 / 100 100 / 100 100 ML @ 200 mls/hr IV.SIG Q12H [facility] Rx#:[id number] Oral 960 / 960 Output: Urine Amount (Catheter) 2350 / 2350 3600 / 3600 Suprapubic 2350 / 2350 3600 / 3600 Other: Bladder Irrigation Fluid - Amount Instilled Indwelling Urethral Catheter 12,000 Suprapubic 6,000 Bladder Irrigation Fluid - Amount Drained Indwelling Urethral Catheter 12,950 Date of Last Bowel Movement 08/06/18 08/06/18 # Bowel Movements 1 Narrative: Abdomen minimally tender to palpation, otherwise soft, nondistended Lying in bed, NAD, unlabored breathing - Urinary Catheter Management Indwelling Urethral Catheter Cath placed during this visit: yes Reason for continuing: Gross Hematuria Insertion date: 08/05/18 Insertion time: 18:00 Suprapubic Cath placed during this visit: yes Reason for continuing: Gross Hematuria Insertion date: 08/03/18 3-way Urethral Cath placed during this visit: yes Reason for continuing: Gross Hematuria Insertion date: 08/03/18 Results - Labs CBC & Chem 7: 08/07/18 06:16 08/06/18 09:10 Laboratory Results - last 24 hr 08/06/18 08/06/18 09:10 09:10 WBC 12.1 H RBC 3.20 L Hgb 9.8 L D Hct 29.2 L MCV 91.0 MCH 30.7 MCHC 33.7 RDW 15.7 Plt Count 419 D MPV 6.7 L Prelim Diff (Auto) Slide review pending Neut % (Auto) 71.5 H Lymph % (Auto) 15.8 [place] % (Auto) 10.0 H Eos % (Auto) 1.2 Baso % (Auto) 1.5 Neut # (Auto) 8.6 H Lymph # (Auto) 1.9 [place] # (Auto) 1.2 H Eos # (Auto) 0.1 Baso # (Auto) 0.2 WBC Differential . Diff Scan Auto diff confirmed Differential Comment . Platelet Estimate Normal Platelet Morphology Normal Sodium 139 Potassium 3.6 Chloride 106 Carbon Dioxide 25.5 Anion Gap 8 BUN 25 H Creatinine 2.24 H Estimated GFR 29 L Random Glucose 116 H Calcium 7.2 L* Prot Corrected Calcium 7.3 L* Total Protein 6.9 D Microbiology 08/05/18 08:30 Clean Catch Urine Urine Culture - Preliminary No growth in 24 hours 08/05/18 10:41 Blood - Peripheral Aerobic Blood Culture - Preliminary No growth in 1 day 08/05/18 10:41 Blood - Peripheral Anaerobic Blood Culture - Preliminary No growth in 1 day 08/05/18 08:30 Blood - Peripheral Aerobic Blood Culture - Preliminary No growth in 1 day 08/05/18 08:30 Blood - Peripheral Anaerobic Blood Culture - Preliminary No growth in 1 day 08/02/18 00:55 Blood - Peripheral Aerobic Blood Culture - Preliminary No growth in 4 days 08/02/18 00:55 Blood - Peripheral Anaerobic Blood Culture - Preliminary No growth in 4 days 08/02/18 01:00 Blood - Peripheral Aerobic Blood Culture - Preliminary No growth in 4 days 08/02/18 01:00 Blood - Peripheral Anaerobic Blood Culture - Preliminary No growth in 4 days - Procedures 08/03/2018 Cystoscopy with placement of suprapubic tube, cystogram 07/29/2018 Cystoscopy with fulguration of prostate bleeding Assessment and Plan - Assessment (1) Acute UTI Code(s): N39.0 - Urinary tract infection, site not specified Status: Acute (2) Prostate cancer metastatic to bone Code(s): C61 - Malignant neoplasm of prostate; C79.51 - Secondary malignant neoplasm of bone Status: Acute - Plan Mr. Queen is a pleasant 73-year-old male with a history of metastatic prostate carcinoma who was admitted to the hospital due to fever, hematuria and pelvic pain. Infectious disease as well as oncology and urology have been following patient. Patient is currently on levofloxacin and Zosyn for suspected prostatitis. Acute prostatitis -Continue levofloxacin and meropenem per infectious disease -Blood cx negative. Urine cx from 07/22/2018 showed Staph Epi. -Another fever last night, blood cultures pending from 08/05 Rectal pain -Possible anal fissure versus hemorrhoids, GI recommendations Back pain -Added lidoderm patch Persistent hematuria Bilateral hydronephrosis on ultrasound left greater than right -Radiation oncology is planning treatments. -Suprapubic catheter placement on 08/03/2018. -Engel catheter and suprapubic catheter adjusted by urology on 08/05, has good irrigation, continue CBI, possible voiding trial next 24-48 hrs per urology Acute post-hemorrhagic anemia due to Genitourinary tract bleeding. -Two units of PRBCs on 08/02/2018. Metastatic prostate carcinoma -Oncology is following. Patient is has had good response to leuprolide and Enzalutamide (Xtandi). -Continue oxycodone for pain control. Continue long-acting OxyContin 20 mg twice daily. Hypocalcemia Acute kidney injury on Chronic kidney disease -Nephrology is following. Creatinine hovering around 2.2-2.3. -Stabilized Full code. Ambulation. Pharmacological DVT prophylaxis contraindicated at this point. Discharge Planning: Discharge plan: Difficult discharge due to persistent/recurrent hematuria. Voiding trial on 08/07/2018. Possible discharge early next week.
--- NOTE | 2018-08-06 16:23 | P.PNGI ---
Subjective Interval history: Is awake, alert, and feels much better today current hemoglobin 9.8, WBC count 12.1 states some relief from lidocaine cream to rectal area <BubbaOlga Deshawn - Last Filed: 08/06/18 16:19> Physical Exam Vital signs: Vital Signs 08/05/18 20:00 08/05/18 21:00 08/06/18 00:00 Temperature 102 F H 98.8 F 98 F Pulse Rate 94 H 84 Respiratory Rate 16 18 Blood Pressure 137/67 103/51 L Pulse Oximetry 95 94 L 08/06/18 04:00 08/06/18 08:00 08/06/18 11:52 Temperature 98.8 F 99.3 F 98.9 F Pulse Rate 88 72 67 Respiratory Rate 18 20 20 Blood Pressure 126/65 127/60 110/57 L Pulse Oximetry 98 96 95 08/06/18 16:00 Temperature 98.3 F Pulse Rate 77 Respiratory Rate 20 Blood Pressure 108/62 Pulse Oximetry 97 Intake & Output 08/05/18 08/06/18 08/06/18 18:59 06:59 18:59 Intake Total 100 / 100 1060 / 1060 100 / 100 Output Total 2350 / 2350 3600 / 3600 Balance -2250 / -2250 1060 / 1060 -3500 / -3500 Intake: IV 100 / 100 100 / 100 100 / 100 Merrem Inj 1,000 MG In NS Inj 100 / 100 100 / 100 100 / 100 100 ML @ 200 mls/hr IV.SIG Q12H [facility] Rx#:[id number] Oral 960 / 960 Output: Urine Amount (Catheter) 2350 / 2350 3600 / 3600 Suprapubic 2350 / 2350 3600 / 3600 Other: Bladder Irrigation Fluid - Amount Instilled Indwelling Urethral Catheter 12,000 Suprapubic 6,000 Bladder Irrigation Fluid - Amount Drained Indwelling Urethral Catheter 12,950 Date of Last Bowel Movement 08/06/18 08/06/18 # Bowel Movements 1 - Constitutional mild distress, thin, cachectic, cooperative - Routine HEENT Exam ENT: Present: mucous membranes dry - Routine Cardiovascular Exam Present: S1, S2 - Routine Abdominal Exam Present: soft ([place],), normoactive bowel sounds (Mild soft bowel sounds, rectal pain more controlled with medications), distended - Urinary Catheter Management Indwelling Urethral Catheter Cath placed during this visit: yes Reason for continuing: Gross Hematuria Insertion date: 08/05/18 Insertion time: 18:00 Suprapubic Cath placed during this visit: yes Reason for continuing: Gross Hematuria Insertion date: 08/03/18 3-way Urethral Cath placed during this visit: yes Reason for continuing: Gross Hematuria Insertion date: 08/03/18 <Olga Mac - Last Filed: 08/06/18 16:19> Vital signs: Vital Signs 08/05/18 20:00 08/05/18 21:00 08/06/18 00:00 Temperature 102 F H 98.8 F 98 F Pulse Rate 94 H 84 Respiratory Rate 16 18 Blood Pressure 137/67 103/51 L Pulse Oximetry 95 94 L 08/06/18 04:00 08/06/18 08:00 08/06/18 11:52 Temperature 98.8 F 99.3 F 98.9 F Pulse Rate 88 72 67 Respiratory Rate 18 20 20 Blood Pressure 126/65 127/60 110/57 L Pulse Oximetry 98 96 95 08/06/18 16:00 Temperature 98.3 F Pulse Rate 77 Respiratory Rate 20 Blood Pressure 108/62 Pulse Oximetry 97 Intake & Output 08/05/18 08/06/18 08/06/18 18:59 06:59 18:59 Intake Total 100 / 100 1060 / 1060 100 / 100 Output Total 2350 / 2350 3600 / 3600 Balance -2250 / -2250 1060 / 1060 -3500 / -3500 Intake: IV 100 / 100 100 / 100 100 / 100 Merrem Inj 1,000 MG In NS Inj 100 / 100 100 / 100 100 / 100 100 ML @ 200 mls/hr IV.SIG Q12H [facility] Rx#:[id number] Oral 960 / 960 Output: Urine Amount (Catheter) 2350 / 2350 3600 / 3600 Suprapubic 2350 / 2350 3600 / 3600 Other: Bladder Irrigation Fluid - Amount Instilled Indwelling Urethral Catheter 12,000 Suprapubic 6,000 Bladder Irrigation Fluid - Amount Drained Indwelling Urethral Catheter 12,950 Date of Last Bowel Movement 08/06/18 08/06/18 # Bowel Movements 1 - Urinary Catheter Management Indwelling Urethral Catheter Cath placed during this visit: no Suprapubic Cath placed during this visit: no 3-way Urethral Cath placed during this visit: no <DonovanKailash E - Last Filed: 08/06/18 16:49> Results - Labs CBC & Chem 7: 08/06/18 09:10 08/06/18 09:10 Laboratory Results - last 24 hr 08/06/18 08/06/18 09:10 09:10 WBC 12.1 H RBC 3.20 L Hgb 9.8 L D Hct 29.2 L MCV 91.0 MCH 30.7 MCHC 33.7 RDW 15.7 Plt Count 419 D MPV 6.7 L Prelim Diff (Auto) Slide review pending Neut % (Auto) 71.5 H Lymph % (Auto) 15.8 [place] % (Auto) 10.0 H Eos % (Auto) 1.2 Baso % (Auto) 1.5 Neut # (Auto) 8.6 H Lymph # (Auto) 1.9 [place] # (Auto) 1.2 H Eos # (Auto) 0.1 Baso # (Auto) 0.2 WBC Differential . Diff Scan Auto diff confirmed Differential Comment . Platelet Estimate Normal Platelet Morphology Normal Sodium 139 Potassium 3.6 Chloride 106 Carbon Dioxide 25.5 Anion Gap 8 BUN 25 H Creatinine 2.24 H Estimated GFR 29 L Random Glucose 116 H Calcium 7.2 L* Prot Corrected Calcium 7.3 L* Total Protein 6.9 D Microbiology 08/05/18 08:30 Clean Catch Urine Urine Culture - Preliminary No growth in 24 hours 08/05/18 10:41 Blood - Peripheral Aerobic Blood Culture - Preliminary No growth in 1 day 08/05/18 10:41 Blood - Peripheral Anaerobic Blood Culture - Preliminary No growth in 1 day 08/05/18 08:30 Blood - Peripheral Aerobic Blood Culture - Preliminary No growth in 1 day 08/05/18 08:30 Blood - Peripheral Anaerobic Blood Culture - Preliminary No growth in 1 day 08/02/18 00:55 Blood - Peripheral Aerobic Blood Culture - Preliminary No growth in 4 days 08/02/18 00:55 Blood - Peripheral Anaerobic Blood Culture - Preliminary No growth in 4 days 08/02/18 01:00 Blood - Peripheral Aerobic Blood Culture - Preliminary No growth in 4 days 08/02/18 01:00 Blood - Peripheral Anaerobic Blood Culture - Preliminary No growth in 4 days - Procedures 08/03/2018 Cystoscopy with placement of suprapubic tube, cystogram 07/29/2018 Cystoscopy with fulguration of prostate bleeding <Olga Mca - Last Filed: 08/06/18 16:19> - Labs CBC & Chem 7: 08/06/18 09:10 08/06/18 09:10 Laboratory Results - last 24 hr 08/06/18 08/06/18 09:10 09:10 WBC 12.1 H RBC 3.20 L Hgb 9.8 L D Hct 29.2 L MCV 91.0 MCH 30.7 MCHC 33.7 RDW 15.7 Plt Count 419 D MPV 6.7 L Prelim Diff (Auto) Slide review pending Neut % (Auto) 71.5 H Lymph % (Auto) 15.8 [place] % (Auto) 10.0 H Eos % (Auto) 1.2 Baso % (Auto) 1.5 Neut # (Auto) 8.6 H Lymph # (Auto) 1.9 [place] # (Auto) 1.2 H Eos # (Auto) 0.1 Baso # (Auto) 0.2 WBC Differential . Diff Scan Auto diff confirmed Differential Comment . Platelet Estimate Normal Platelet Morphology Normal Sodium 139 Potassium 3.6 Chloride 106 Carbon Dioxide 25.5 Anion Gap 8 BUN 25 H Creatinine 2.24 H Estimated GFR 29 L Random Glucose 116 H Calcium 7.2 L* Prot Corrected Calcium 7.3 L* Total Protein 6.9 D Microbiology 08/05/18 08:30 Clean Catch Urine Urine Culture - Preliminary No growth in 24 hours 08/05/18 10:41 Blood - Peripheral Aerobic Blood Culture - Preliminary No growth in 1 day 08/05/18 10:41 Blood - Peripheral Anaerobic Blood Culture - Preliminary No growth in 1 day 08/05/18 08:30 Blood - Peripheral Aerobic Blood Culture - Preliminary No growth in 1 day 08/05/18 08:30 Blood - Peripheral Anaerobic Blood Culture - Preliminary No growth in 1 day 08/02/18 00:55 Blood - Peripheral Aerobic Blood Culture - Preliminary No growth in 4 days 08/02/18 00:55 Blood - Peripheral Anaerobic Blood Culture - Preliminary No growth in 4 days 08/02/18 01:00 Blood - Peripheral Aerobic Blood Culture - Preliminary No growth in 4 days 08/02/18 01:00 Blood - Peripheral Anaerobic Blood Culture - Preliminary No growth in 4 days <Kailash Man - Last Filed: 08/06/18 16:49> Assessment and Plan - Plan - Plan Uncontrolled Rectal pain, symptoms and onset have been off and on for the past few months and continue to worsen. History of constipation with straining. External hemorrhoids evident. Stools are hard brown no obvious bleeding and BMs are every 1-2 days. Patient was using Colace stool softeners at home and was placed on Amitiza. Patient had a large formed bowel movement today and is continuing to complain of uncontrolled rectal discomfort. Patient does have external hemorrhoids. Patient was able to tolerate a suppository at home but was unable to use applicator with cream. Gastroenterology has been consulted to assist with his symptoms and patient is hoping for some medical management and rectal pain control Anemia probable some acute on chronic since patient is having some hematuria and also has prostate cancer . current labs hemoglobin is 7.7, PT/INR 1.1 bilirubin and LFTs are normal. Patient is awake answering simple questions and noted last colonoscopy was around 5 years ago. Patient and 's current main goal is pain control medical management. Gastroenterology has been consulted to assist with his symptoms. And a plan of care. 08/06/2018 hemoglobin now 9.8, status post transfusions which has helped patient feel better WBC count 12.1 no obvious rectal bleeding patient states lidocaine cream did help the rectal area. History of external hemorrhoids. Rectal exam today per Dr. Man. Patient's hematuria is now much more controlled no obvious bleeding. Continue to monitor patient's symptoms. Plan Diet as tolerated per attending Avoid straining with defecation Anusol HC suppositories as needed Lidocaine 5% cream rectal clean as needed Continue current bowel regimen with stool softeners Supportive care Colace 100 mg 3 times daily Patient was seen per myself and Dr. Man, note was written on his behalf <Olga Mac - Last Filed: 08/06/18 16:19> - Plan Patient seen and examined Agree with above Continue with current supportive care Monitor labs Anemia multifactorial probably relating to his acute kidney injury his prostate cancer is hematuria amongst others Regarding his rectal pain his rectal exam today reveals minimal external hemorrhoid but certainly tender anal exam possibly representing an anal fissure or internal hemorrhoids we will start with Anusol suppositories to help with the rectal and anal pain and we will continue with the lidocaine rectally Constipation seems to be responding to medication at this point <Kailash Man E - Last Filed: 08/06/18 16:49>
[2018-08-06] MEDS: Levofloxacin 500 mg Premix Inj 500 MG/100 ML PIGGYBACK IV.SIG SCH (17:01)
[2018-08-06] MEDS: Lidocaine 5% Patch T-DERMAL SCH (17:01)
[2018-08-06] MEDS: HYDROmorphone PF Inj 2 MG/ML Vial IV.PUSH PRN (19:38)
[2018-08-07] MEDS: HYDROmorphone PF Inj 2 MG/ML Vial IV.PUSH PRN ×2 (05:25→21:58)
[2018-08-07 06:44] LABS: Baso % (Auto) 0.3 % (0.0-2.0); Eos # (Auto) 0.1 th/mm3 (0.0-0.4); Eos % (Auto) 1.9 % (0.0-4.0); Hematocrit 24.7 % (39.0-51.0); Hemoglobin 8.2 gm/dL (13.0-17.0); Lymph # (Auto) 0.7 th/mm3 (1.0-4.8); Lymph % (Auto) 9.1 % (9.0-44.0); Mean Corpuscular HGB Conc 33.3 % (32.0-36.0); Mean Corpuscular Hemoglobin 30.7 pg (27.0-34.0); Mean Corpuscular Volume 92.1 fL (80.0-100.0); Mean Platelet Volume 6.7 fL (7.0-11.0); Mono # (Auto) 0.9 th/mm3 (0.0-0.9); Mono % (Auto) 11.7 % (0.0-8.0); Neut # (Auto) 5.7 th/mm3 (1.8-7.7); Platelet Count 313 th/mm3 (150-450); Red Blood Count 2.69 mil/mm3 (4.50-5.90); Red Cell Distribution Width 15.5 % (11.6-17.2); White Blood Count 7.4 th/mm3 (4.0-11.0)
--- NOTE | 2018-08-07 08:03 | P.PNONC ---
Subjective Interval history: Patient seen and examined, reports feeling comfortable this morning, he tells me he had 3 or 4 large bowel movements yesterday. Most recent fever was on 08/05/2018 at 8 PM; 102 F. He has been afebrile since then. Over the weekend he has remained on levofloxacin and meropenem. All microbiology remains negative. Over the weekend the patient had no significant evidence of hematuria, he remains on an Amicar bladder irrigation solution. Over the weekend he was transitioned from irrigation via the suprapubic bladder catheter to irrigation via the Engel catheter. This morning his major complaint is that of feeling shaky. He tells me his hands and feet seem to shake and tremble. Objective Vital Signs/Intake & Output: Vital Signs 08/06/18 08:00 08/06/18 11:52 08/06/18 16:00 Temperature 99.3 F 98.9 F 98.3 F Pulse Rate 72 67 77 Respiratory Rate 20 20 20 Blood Pressure 127/60 110/57 L 108/62 Pulse Oximetry 96 95 97 08/06/18 20:00 08/07/18 00:00 08/07/18 04:00 Temperature 98.6 F 98.7 F 98.3 F Pulse Rate 85 79 92 H Respiratory Rate 16 17 16 Blood Pressure 104/54 L 111/58 L 113/56 L Pulse Oximetry 95 96 94 L Intake & Output 08/06/18 08/07/18 08/07/18 18:59 06:59 18:59 Intake Total 900 / 900 580 / 580 Output Total 3600 / 3600 Balance -2700 / -2700 580 / 580 Intake: IV 200 / 200 100 / 100 Levaquin 500 mg Premix Inj 500 100 / 100 mg In 100 ml @ 100 mls/hr IV. SIG Q48H [facility] Rx#:[id number] Merrem Inj 1,000 MG In NS Inj 100 / 100 100 / 100 100 ML @ 200 mls/hr IV.SIG Q12H [facility] Rx#:[id number] Oral 700 / 700 480 / 480 Output: Urine Amount (Catheter) 3600 / 3600 Suprapubic 3600 / 3600 Other: Bladder Irrigation Fluid - Amount Instilled Indwelling Urethral Catheter 9,500 Suprapubic 6,000 Bladder Irrigation Fluid - Amount Drained Indwelling Urethral Catheter 10,450 Suprapubic 2,600 Date of Last Bowel Movement 08/06/18 08/06/18 # Bowel Movements 4 Result Diagrams: 08/07/18 06:16 08/06/18 09:10 Laboratory Results: Laboratory Results - last 24 hr 08/06/18 08/06/18 08/07/18 09:10 09:10 06:16 WBC 12.1 H 7.4 RBC 3.20 L 2.69 L Hgb 9.8 L D 8.2 L Hct 29.2 L 24.7 L MCV 91.0 92.1 MCH 30.7 30.7 MCHC 33.7 33.3 RDW 15.7 15.5 Plt Count 419 D 313 MPV 6.7 L 6.7 L Prelim Diff (Auto) Slide review pending Slide review pending Neut % (Auto) 71.5 H 77.0 H Lymph % (Auto) 15.8 9.1 Wy[place] % (Auto) 10.0 H 11.7 H Eos % (Auto) 1.2 1.9 Baso % (Auto) 1.5 0.3 Neut # (Auto) 8.6 H 5.7 Lymph # (Auto) 1.9 0.7 L Wy[place] # (Auto) 1.2 H 0.9 Eos # (Auto) 0.1 0.1 Baso # (Auto) 0.2 0.0 WBC Differential . Diff Scan Auto diff confirmed Differential Comment . . Platelet Estimate Normal Platelet Morphology Normal Sodium 139 Potassium 3.6 Chloride 106 Carbon Dioxide 25.5 Anion Gap 8 BUN 25 H Creatinine 2.24 H Estimated GFR 29 L Random Glucose 116 H Calcium 7.2 L* Prot Corrected Calcium 7.3 L* Total Protein 6.9 D Culture Results: Microbiology 08/05/18 08:30 Urine Culture - Preliminary Clean Catch Urine No growth in 24 hours 08/05/18 10:41 Aerobic Blood Culture - Preliminary Blood - Peripheral No growth in 1 day Anaerobic Blood Culture - Preliminary No growth in 1 day 08/05/18 08:30 Aerobic Blood Culture - Preliminary Blood - Peripheral No growth in 1 day Anaerobic Blood Culture - Preliminary No growth in 1 day 08/02/18 00:55 Aerobic Blood Culture - Preliminary Blood - Peripheral No growth in 4 days Anaerobic Blood Culture - Preliminary No growth in 4 days 08/02/18 01:00 Aerobic Blood Culture - Preliminary Blood - Peripheral No growth in 4 days Anaerobic Blood Culture - Preliminary No growth in 4 days 07/30/18 07:50 Aerobic Blood Culture - Final Blood - Peripheral No growth in 5 days Anaerobic Blood Culture - Final No growth in 5 days 07/30/18 07:54 Aerobic Blood Culture - Final Blood - Peripheral No growth in 5 days Anaerobic Blood Culture - Final No growth in 5 days Medications: Active Medications Generic Name Dose Route Start Last Admin Trade Name Freq PRN Reason Stop Dose Admin Acetaminophen 650 mg 07/22/18 13:55 08/05/18 20:45 Tylenol PO 650 mg Q4H PRN Administration fever Acetaminophen 650 mg 07/29/18 08:29 08/01/18 20:35 Tylenol PO 650 mg Q4H PRN Administration SEE LABEL COMMENTS Belladonna Alkaloids/Opium 60 mg 08/02/18 15:30 08/06/18 13:53 B & O Supp RECTAL 60 mg Q6HR PRN Administration BLADDER SPASM Bupropion HCl 150 mg 07/22/18 14:00 08/06/18 09:33 Wellbutrin Xl PO 150 mg DAILY [facility] Administration Sodium Chloride 3,000 ml/ 0 ml 07/29/18 23:03 08/06/18 13:28 Aminocaproic Acid 3,000 mg IRRIGATION 3,000 irrig.soln Q24H PRN Administration TO KEEP URINE CLEAR Diazepam 5 mg 07/22/18 13:57 08/04/18 23:23 Valium PO 5 mg DAILY PRN Administration Anxiety Docusate Sodium 100 mg 07/25/18 15:45 08/06/18 17:19 Colace PO 100 mg TID MILDRED Administration Folic Acid 1 mg 07/24/18 12:00 08/06/18 09:06 Folic Acid PO 1 mg DAILY [facility] Administration Gabapentin 300 mg 07/23/18 21:00 08/06/18 20:46 Neurontin PO 300 mg BID [facility] Administration Hydrocortisone Acetate 1 applicatio 08/06/18 18:00 08/06/18 22:26 Anusol-Hc RECTAL 1 applicatio TID [facility] Administration Hydromorphone HCl 0.5 mg 07/26/18 19:30 08/07/18 05:25 Dilaudid Pf Inj IV.PUSH 0.5 mg Q4H PRN Administration BREAKTHROUGH PAIN Levofloxacin/Dextrose 500 mg in 100 mls @ 100 mls/hr 07/31/18 16:00 08/06/18 18:26 Levaquin 500 Mg Premix Inj IV.SIG Infused Q48H [facility] Infusion Meropenem 1,000 mg/ Sodium 100 mls @ 200 mls/hr 07/31/18 20:00 08/06/18 22:40 Chloride IV.SIG Infused Q12H [facility] Infusion Latanoprost 1 drop 07/22/18 21:00 08/06/18 20:51 Xalatan 0.005% Opth Drops EACH EYE 1 drop HS [facility] Administration Lidocaine HCl 1 applicatio 08/05/18 17:15 08/05/18 20:46 Xylocaine 5% Oint TOPICAL 1 applicatio Q8H PRN Administration Acute Pain Lidocaine HCl 1 patch 08/06/18 15:00 08/06/18 17:01 Lidoderm 5% Patch.12 Hr T-DERMAL 1 patch DAILY [facility] Administration Oxycodone HCl 5 mg 07/22/18 14:46 08/07/18 05:16 Roxicodone PO 5 mg Q4H PRN Administration breakthrough pain Oxycodone HCl 20 mg 08/01/18 20:00 08/06/18 20:46 Oxycontin Cr PO 20 mg Q12H [facility] Administration Patch Removal 1 each 08/06/18 21:00 08/06/18 20:51 Remove Old Patch T-DERMAL 1 each HS [facility] Administration Tenofovir Disoproxil Fumarate 300 mg 07/24/18 09:00 08/05/18 08:49 Viread PO 300 mg EVERY OTHER DAY [facility] Administration Tolterodine Tartrate 4 mg 07/24/18 13:00 08/06/18 09:05 Detrol La PO 4 mg DAILY [facility] Administration Vitamin D 2,000 unit 07/25/18 09:00 08/06/18 09:06 Vitamin D3 PO 2,000 unit DAILY [facility] Administration Objective Remarks: GENERAL: Elderly male, laying in bed, not acutely distressed, awake, alert and oriented he appears to be chronically ill. Somewhat frail appearing. SKIN: Pale, warm and dry. HEAD: Normocephalic. EYES: Conjunctivae pale, no scleral icterus. No injection or drainage. NECK: Supple, trachea midline. No JVD or lymphadenopathy. LYMPHATIC: No adenopathy. CARDIOVASCULAR: Regular rate and rhythm without murmurs. RESPIRATORY: Breath sounds equal bilaterally. No accessory muscle use. GASTROINTESTINAL: Thin abdomen, soft, tenderness over the left lower quadrant, positive bowel sounds. Now with suprapubic catheter in place. Continues to have a Engel catheter in place. EXTREMITIES: No cyanosis, pitting edema noted around the ankles and dependent portions of the leg. MUSCULOSKELETAL: Generally decreased muscle mass. NEUROLOGICAL: Awake, alert, oriented, he has asked direct assist type clonus involving the hands. PSYCHIATRIC: Appropriate mood and affect; insight and judgment normal. Assessment/Plan - Plan Mr. Queen Is a 73-year-old man with a diagnosis of metastatic prostate carcinoma , he has had an excellent response to combination therapy consisting of leuprolide and Xtandi. His PSA levels have been less than 0.1 ng/dL over the past several months. He has extensive metastatic disease burden involving his axial skeleton especially his pelvis. Most recent PET CT scan revealed most of his previously active metastatic disease to be dormant, he however had intense hypermetabolic activity localized to the prostate and to the bladder. In late June he underwent cystoscopy for workup of hematuria with his former urologist Dr. Parmar, no obvious cause for hematuria was identified. He is now in the hospital with fevers, hematuria and pelvic pain. Clinically he has suspected prostatitis and is on broad-spectrum antibiotics with Zosyn and levofloxacin. Urine cultures and blood cultures are negative thus far other than forced staph epidermidis. CT scan of the abdomen/pelvis revealed no obvious cause for the hematuria. Recommendations: 1. Febrile illness: Afebrile since 8pm on 08/05. All cultures remain negative. On empiric coverage with levofloxacin and meropenem. 2. Hematuria: He is no longer having hematuria. Radiation to the prostate to start later today. 3. Pain control, continue long and short acting opioids. Patient feels comfortable at this time. 4. Metastatic prostate carcinoma, PSA less than 0.1; plans to resume Xtandi upon discharge from the hospital. 5. Hemoglobin has declined to 8.4 g/dL today. 6. Asterixis: Initiate lactulose.
--- NOTE | 2018-08-07 08:57 | P.PNURO ---
Subjective Patient symptoms today: Pt seen and examined. Urine is clear. Objective Vital Signs: Vital Signs 08/06/18 11:52 08/06/18 16:00 08/06/18 20:00 Temperature 98.9 F 98.3 F 98.6 F Pulse Rate 67 77 85 Respiratory Rate 20 20 16 Blood Pressure 110/57 L 108/62 104/54 L Pulse Oximetry 95 97 95 08/07/18 00:00 08/07/18 04:00 Temperature 98.7 F 98.3 F Pulse Rate 79 92 H Respiratory Rate 17 16 Blood Pressure 111/58 L 113/56 L Pulse Oximetry 96 94 L Intake & Output 08/06/18 08/07/18 08/07/18 18:59 06:59 18:59 Intake Total 900 / 900 580 / 580 Output Total 3600 / 3600 Balance -2700 / -2700 580 / 580 Intake: IV 200 / 200 100 / 100 Levaquin 500 mg Premix Inj 500 100 / 100 mg In 100 ml @ 100 mls/hr IV. SIG Q48H [facility] Rx#:[id number] Merrem Inj 1,000 MG In NS Inj 100 / 100 100 / 100 100 ML @ 200 mls/hr IV.SIG Q12H [facility] Rx#:[id number] Oral 700 / 700 480 / 480 Output: Urine Amount (Catheter) 3600 / 3600 Suprapubic 3600 / 3600 Other: Bladder Irrigation Fluid - Amount Instilled Indwelling Urethral Catheter 9,500 Suprapubic 6,000 Bladder Irrigation Fluid - Amount Drained Indwelling Urethral Catheter 10,450 Suprapubic 2,600 Date of Last Bowel Movement 08/06/18 08/06/18 # Bowel Movements 4 Result Diagrams: 08/07/18 06:16 08/06/18 09:10 Procedures: Suprapubic catheter gently repositioned after balloon deflated. Balloon subsequently reinflated with 10 cc sterile water. Catheter then secured to lower abdomen with fixation device. Three-way Palacios catheter then replaced with a 20 Wolof two-way Palacios catheter and subsequently irrigated with evacuation of a few small clots. CBI then re- implemented with inflow via the Palacios and outflow via the suprapubic catheter and titrated to light pink return. Medications and IVs: Active Medications Generic Name Dose Route Start Last Admin Trade Name Freq PRN Reason Stop Dose Admin Acetaminophen 650 mg 07/22/18 13:55 08/05/18 20:45 Tylenol PO 650 mg Q4H PRN Administration fever Acetaminophen 650 mg 07/29/18 08:29 08/01/18 20:35 Tylenol PO 650 mg Q4H PRN Administration SEE LABEL COMMENTS Belladonna Alkaloids/Opium 60 mg 08/02/18 15:30 08/06/18 13:53 B & O Supp RECTAL 60 mg Q6HR PRN Administration BLADDER SPASM Bupropion HCl 150 mg 07/22/18 14:00 08/06/18 09:33 Wellbutrin Xl PO 150 mg DAILY [facility] Administration Sodium Chloride 3,000 ml/ 0 ml 07/29/18 23:03 08/06/18 13:28 Aminocaproic Acid 3,000 mg IRRIGATION 3,000 irrig.soln Q24H PRN Administration TO KEEP URINE CLEAR Diazepam 5 mg 07/22/18 13:57 08/04/18 23:23 Valium PO 5 mg DAILY PRN Administration Anxiety Docusate Sodium 100 mg 07/25/18 15:45 08/06/18 17:19 Colace PO 100 mg TID [facility] Administration Folic Acid 1 mg 07/24/18 12:00 08/06/18 09:06 Folic Acid PO 1 mg DAILY [facility] Administration Gabapentin 300 mg 07/23/18 21:00 08/06/18 20:46 Neurontin PO 300 mg BID [facility] Administration Hydrocortisone Acetate 25 mg 08/05/18 17:13 Hemorrhoidal Hc Supp RECTAL TID PRN Acute Pain Hydrocortisone Acetate 1 applicatio 08/06/18 18:00 08/06/18 22:26 Anusol-Hc RECTAL 1 applicatio TID [facility] Administration Hydromorphone HCl 0.5 mg 07/26/18 19:30 08/07/18 05:25 Dilaudid Pf Inj IV.PUSH 0.5 mg Q4H PRN Administration BREAKTHROUGH PAIN Levofloxacin/Dextrose 500 mg in 100 mls @ 100 mls/hr 07/31/18 16:00 08/06/18 18:26 Levaquin 500 Mg Premix Inj IV.SIG Infused Q48H [facility] Infusion Meropenem 1,000 mg/ Sodium 100 mls @ 200 mls/hr 07/31/18 20:00 08/06/18 22:40 Chloride IV.SIG Infused Q12H [facility] Infusion Lactulose 30 ml 08/07/18 09:00 Lactulose Liq PO BID [facility] Latanoprost 1 drop 07/22/18 21:00 08/06/18 20:51 Xalatan 0.005% Opth Drops EACH EYE 1 drop HS [facility] Administration Lidocaine HCl 1 applicatio 08/05/18 17:15 08/05/18 20:46 Xylocaine 5% Oint TOPICAL 1 applicatio Q8H PRN Administration Acute Pain Lidocaine HCl 1 patch 08/06/18 15:00 08/06/18 17:01 Lidoderm 5% Patch.12 Hr T-DERMAL 1 patch DAILY [facility] Administration Oxycodone HCl 5 mg 07/22/18 14:46 08/07/18 05:16 Roxicodone PO 5 mg Q4H PRN Administration breakthrough pain Oxycodone HCl 20 mg 08/01/18 20:00 08/06/18 20:46 Oxycontin Cr PO 20 mg Q12H [facility] Administration Patch Removal 1 each 08/06/18 21:00 08/06/18 20:51 Remove Old Patch T-DERMAL 1 each HS [facility] Administration Pom: (Lubiprostone [ 0 each 07/22/18 21:00 Amitiza] 24 Mcg) PO BID [facility] Tenofovir Disoproxil Fumarate 300 mg 07/24/18 09:00 08/05/18 08:49 Viread PO 300 mg EVERY OTHER DAY [facility] Administration Tolterodine Tartrate 4 mg 07/24/18 13:00 08/06/18 09:05 Detrol La PO 4 mg DAILY [facility] Administration Vitamin D 2,000 unit 07/25/18 09:00 08/06/18 09:06 Vitamin D3 PO 2,000 unit DAILY [facility] Administration Objective Remarks: IVONNE RRR Clear lungs Palacios is in place, urine is light pink 07/27 Abd:soft,nt,nd Palacios on CBI; now with pink urine; clots cleared. 07/28 Abd:soft,nt, nd Palacios with clear urine. 07/29 Abd:soft,nt,nd Palacios with gross hematuria with clots. 07/30 Abd:soft,nt,nd Palacios; now clear. 07/31 Abd:soft,nt,nd Palacios; now clear. 08/01 Abd:soft,nt,nd Palacios; now clear. 08/02 Abd:soft,nt,nd Palacios: clear. 08/04 Abd:soft,nt,nd Palacios: clear. 08/05 Abdomen soft, with irrigant leakage noted around suprapubic catheter Urine output medium red in color 08/07 Abd:soft,nt,nd Palacios removed at bedside. Urine clear. Assessment and Plan - Plan 73y.o M with other medical issues listed in HPI Urology consulted for hematuria, which is resolving now No additional recommendations, same as below - Continue care as per primary team - No acute intervention needed - Hematuria can be related to self cath and UTI as well as to previous radiation. - Continue current treatment, follow ID recommendations - Manual irrigation of the bladder may help to get rid of bladder clots/debris seen in the bladder on Sono. Do it BID - Pt to see his urologist after d/c for further management, may need cysto as outpt. 07/27/18 73 y.o male with metastatic CaP with gross hematuria 24F 3-way palacios in place; clots irrigated and CBI started Hold SQ Heparin; will order SCD's instead Will need cystoscopy at later date and may need HBO as outpt to help RX Radiation cystitis Will follow. 07/28 73 y.o male with metastatic CaP with gross hematuria 24F 3-way palacios in place; urine now clear Cysto as outpt. 07/29 73 y.o male with metastatic CaP with gross hematuria Will need cysto with fulguration of bleeding in OR today Continue NPO. 07/30 73 y.o male with metastatic CaP with gross hematuria Continue supportive measures/transfusion/Amicar CBI To d/w Radiation oncology tomorrow. D/W Dr. Gant 07/31 73 y.o male with metastatic CaP with gross hematuria Continue supportive measures/transfusion/Amicar CBI Possible XRT therapy for control of bleeding. 08/01 73 y.o male with metastatic CaP with gross hematuria Urine now clearing on Amicar CBI XRT to start soon For SP tube insertion on . 08/02 73 y.o male with metastatic CaP with gross hematuria Urine now clearing on Amicar CBI XRT to start soon For SP tube insertion tomorrow. 08/04 Stable s/p SP tube insertion Continue CBI over the weekend Hopeful void trial Tuesday if urine remains clear. 08/05 Ongoing hematuria with subsequent blockage of Palacios catheter secondary to clot formation. Suprapubic catheter repositioned and three-way Palacios catheter exchanged for a two-way 20 Wolof Palacios CBI reimplemented 08/06 CBI running well with resolution of the hematuria. We will continue with CBI at a slow rate and titrate up if necessary. 08/07 73 y.o male with metastatic prostate cancer with gross hematuria Palacios removed at bedside For XRT today.
--- NOTE | 2018-08-07 09:12 | P.PNNP ---
Subjective Interval history: Urethral catheter has been removed. Suprapubic catheter is draining clear Physical Exam Vital signs: Vital Signs 08/06/18 11:52 08/06/18 16:00 08/06/18 20:00 Temperature 98.9 F 98.3 F 98.6 F Pulse Rate 67 77 85 Respiratory Rate 20 20 16 Blood Pressure 110/57 L 108/62 104/54 L Pulse Oximetry 95 97 95 08/07/18 00:00 08/07/18 04:00 Temperature 98.7 F 98.3 F Pulse Rate 79 92 H Respiratory Rate 17 16 Blood Pressure 111/58 L 113/56 L Pulse Oximetry 96 94 L Intake & Output 08/06/18 08/07/18 08/07/18 18:59 06:59 18:59 Intake Total 900 / 900 580 / 580 Output Total 3600 / 3600 Balance -2700 / -2700 580 / 580 Intake: IV 200 / 200 100 / 100 Levaquin 500 mg Premix Inj 500 100 / 100 mg In 100 ml @ 100 mls/hr IV. SIG Q48H [facility] Rx#:[id number] Merrem Inj 1,000 MG In NS Inj 100 / 100 100 / 100 100 ML @ 200 mls/hr IV.SIG Q12H [facility] Rx#:[id number] Oral 700 / 700 480 / 480 Output: Urine Amount (Catheter) 3600 / 3600 Suprapubic 3600 / 3600 Other: Bladder Irrigation Fluid - Amount Instilled Indwelling Urethral Catheter 9,500 Suprapubic 6,000 Bladder Irrigation Fluid - Amount Drained Indwelling Urethral Catheter 10,450 Suprapubic 2,600 Date of Last Bowel Movement 08/06/18 08/06/18 # Bowel Movements 4 Narrative: Chest : clear. Heart: RRR Abdomen: soft, suprapubic catheter. Extremities: no edema. - Urinary Catheter Management Indwelling Urethral Catheter Cath placed during this visit: yes Reason for continuing: Gross Hematuria Insertion date: 08/05/18 Insertion time: 18:00 Suprapubic Cath placed during this visit: yes Reason for continuing: Gross Hematuria Insertion date: 08/03/18 3-way Urethral Cath placed during this visit: yes Reason for continuing: Gross Hematuria Insertion date: 08/03/18 Assessment and Plan - Assessment (1) Acute on chronic kidney failure Code(s): N17.9 - Acute kidney failure, unspecified; N18.9 - Chronic kidney disease, unspecified Status: Acute Plan: patient's renal function is stable, this may be a new baseline. Monitor. Avoid nephrotoxic agents. Monitor urine output. (2) Gross hematuria Code(s): R31.0 - Gross hematuria Status: Acute Plan: Urology following. Possible bleeding from prostate. May have prostatitis. Underwent suprapubic catheter placement. Being followed by Oncology and urology. (3) Prostate cancer metastatic to bone Code(s): C61 - Malignant neoplasm of prostate; C79.51 - Secondary malignant neoplasm of bone Status: Acute Plan: Hematology/Oncology note was reviewed. (4) Acute UTI Code(s): N39.0 - Urinary tract infection, site not specified Status: Acute Plan: Possible prostatitis. On antibiotic.
[2018-08-07] MEDS: Calcium Carbonate 500 MG Tablet PO SCH ×2 (09:46→20:08)
[2018-08-07] MEDS: oxyCODONE 10 MG Controlled Release Tablet PO SCH ×2 (09:48→20:06)
[2018-08-07] MEDS: Acetaminophen 325 MG Tablet PO PRN (09:48)
[2018-08-07] MEDS: Lidocaine 5% Patch T-DERMAL SCH (09:48)
[2018-08-07] MEDS: Tenofovir 300 MG Tablet PO SCH (09:49)
[2018-08-07] MEDS: buPROPion 150 MG XL 24 HR Tablet PO SCH (09:49)
[2018-08-07] MEDS: Folic Acid 1 MG Tablet PO SCH (09:49)
[2018-08-07] MEDS: Docusate Sodium 100 MG Capsule PO SCH ×3 (09:49→17:38)
[2018-08-07] MEDS: Gabapentin 300 MG Capsule PO SCH ×2 (09:50→20:07)
--- NOTE | 2018-08-07 10:31 | P.PNGI ---
Subjective Interval history: Patient is resting in the bed, answering simple questions but appears very weak and shakey. Denies any current rectal pain and states that the suppository and LidoCream cream seem to be helping. Patient is able to eat small amounts of diet. According to the record radiation is planned this afternoon of the prostate <Olga Mac - Last Filed: 08/07/18 10:25> Physical Exam Vital signs: Vital Signs 08/06/18 11:52 08/06/18 16:00 08/06/18 20:00 Temperature 98.9 F 98.3 F 98.6 F Pulse Rate 67 77 85 Respiratory Rate 20 20 16 Blood Pressure 110/57 L 108/62 104/54 L Pulse Oximetry 95 97 95 08/07/18 00:00 08/07/18 04:00 08/07/18 09:34 Temperature 98.7 F 98.3 F 100.5 F H Pulse Rate 79 92 H 87 Respiratory Rate 17 16 16 Blood Pressure 111/58 L 113/56 L 107/63 Pulse Oximetry 96 94 L Intake & Output 08/06/18 08/07/18 08/07/18 18:59 06:59 18:59 Intake Total 900 / 900 580 / 580 Output Total 3600 / 3600 Balance -2700 / -2700 580 / 580 Weight 81.2 kg Intake: IV 200 / 200 100 / 100 Levaquin 500 mg Premix Inj 500 100 / 100 mg In 100 ml @ 100 mls/hr IV. SIG Q48H [facility] Rx#:[id number] Merrem Inj 1,000 MG In NS Inj 100 / 100 100 / 100 100 ML @ 200 mls/hr IV.SIG Q12H [facility] Rx#:[id number] Oral 700 / 700 480 / 480 Output: Urine Amount (Catheter) 3600 / 3600 Suprapubic 3600 / 3600 Other: Bladder Irrigation Fluid - Amount Instilled Indwelling Urethral Catheter 9,500 Suprapubic 6,000 Bladder Irrigation Fluid - Amount Drained Indwelling Urethral Catheter 10,450 Suprapubic 2,600 Date of Last Bowel Movement 08/06/18 08/06/18 # Bowel Movements 4 - Constitutional mild distress, thin, cachectic - Routine HEENT Exam Head: Present: normocephalic ENT: Present: mucous membranes dry (Pale) - Routine Respiratory Exam Present: accessory muscle use (No obvious wheezing or rhonchi) - Routine Cardiovascular Exam Present: S1, S2 - Routine Abdominal Exam Present: soft (Soft bowel sounds, no obvious discomfort to light palpation) - Urinary Catheter Management Indwelling Urethral Catheter Cath placed during this visit: yes Reason for continuing: Gross Hematuria Insertion date: 08/05/18 Insertion time: 18:00 Suprapubic Cath placed during this visit: yes Reason for continuing: Gross Hematuria Insertion date: 08/03/18 3-way Urethral Cath placed during this visit: yes Reason for continuing: Gross Hematuria Insertion date: 08/03/18 <Olga Mac - Last Filed: 08/07/18 10:25> Vital signs: Vital Signs 08/06/18 16:00 08/06/18 20:00 08/07/18 00:00 Temperature 98.3 F 98.6 F 98.7 F Pulse Rate 77 85 79 Respiratory Rate 20 16 17 Blood Pressure 108/62 104/54 L 111/58 L Pulse Oximetry 97 95 96 08/07/18 04:00 08/07/18 09:34 08/07/18 11:41 Temperature 98.3 F 100.5 F H 97.5 F L Pulse Rate 92 H 87 70 Respiratory Rate 16 16 16 Blood Pressure 113/56 L 107/63 94/49 L Pulse Oximetry 94 L 95 08/07/18 11:47 08/07/18 15:00 Temperature 97.4 F L Pulse Rate 63 Respiratory Rate 16 Blood Pressure 102/51 L 112/62 Pulse Oximetry 96 Intake & Output 08/06/18 08/07/18 08/07/18 18:59 06:59 18:59 Intake Total 900 / 900 580 / 580 100 / 100 Output Total 3600 / 3600 Balance -2700 / -2700 580 / 580 100 / 100 Weight 81.2 kg Intake: IV 200 / 200 100 / 100 100 / 100 Levaquin 500 mg Premix Inj 500 100 / 100 mg In 100 ml @ 100 mls/hr IV. SIG Q48H [facility] Rx#:[id number] Merrem Inj 1,000 MG In NS Inj 100 / 100 100 / 100 100 / 100 100 ML @ 200 mls/hr IV.SIG Q12H [facility] Rx#:[id number] Oral 700 / 700 480 / 480 Output: Urine Amount (Catheter) 3600 / 3600 Suprapubic 3600 / 3600 Other: Bladder Irrigation Fluid - Amount Instilled Indwelling Urethral Catheter 9,500 Suprapubic 6,000 Bladder Irrigation Fluid - Amount Drained Indwelling Urethral Catheter 10,450 Suprapubic 2,600 Date of Last Bowel Movement 08/06/18 08/06/18 # Bowel Movements 4 - Urinary Catheter Management Indwelling Urethral Catheter Cath placed during this visit: no Suprapubic Cath placed during this visit: no 3-way Urethral Cath placed during this visit: no <Judith Austin - Last Filed: 08/07/18 15:39> Results - Labs CBC & Chem 7: 08/07/18 06:16 08/06/18 09:10 Laboratory Results - last 24 hr 08/06/18 08/06/18 08/07/18 09:10 09:10 06:16 WBC 7.4 RBC 2.69 L Hgb 8.2 L Hct 24.7 L MCV 92.1 MCH 30.7 MCHC 33.3 RDW 15.5 Plt Count 313 MPV 6.7 L Prelim Diff (Auto) Slide review pending Neut % (Auto) 77.0 H Lymph % (Auto) 9.1 [place] % (Auto) 11.7 H Eos % (Auto) 1.9 Baso % (Auto) 0.3 Neut # (Auto) 5.7 Lymph # (Auto) 0.7 L [place] # (Auto) 0.9 Eos # (Auto) 0.1 Baso # (Auto) 0.0 WBC Differential . . Diff Scan Auto diff confirmed Auto diff confirmed Differential Comment . Platelet Estimate Normal Platelet Morphology Normal Prot Corrected Calcium 7.3 L* Total Protein 6.9 D Microbiology 08/05/18 08:30 Clean Catch Urine Urine Culture - Final No growth in 48 hours 08/05/18 10:41 Blood - Peripheral Aerobic Blood Culture - Preliminary No growth in 1 day 08/05/18 10:41 Blood - Peripheral Anaerobic Blood Culture - Preliminary No growth in 1 day 08/05/18 08:30 Blood - Peripheral Aerobic Blood Culture - Preliminary No growth in 1 day 08/05/18 08:30 Blood - Peripheral Anaerobic Blood Culture - Preliminary No growth in 1 day 08/02/18 00:55 Blood - Peripheral Aerobic Blood Culture - Preliminary No growth in 4 days 08/02/18 00:55 Blood - Peripheral Anaerobic Blood Culture - Preliminary No growth in 4 days 08/02/18 01:00 Blood - Peripheral Aerobic Blood Culture - Preliminary No growth in 4 days 08/02/18 01:00 Blood - Peripheral Anaerobic Blood Culture - Preliminary No growth in 4 days - Procedures 08/03/2018 Cystoscopy with placement of suprapubic tube, cystogram 07/29/2018 Cystoscopy with fulguration of prostate bleeding <Olga Mac - Last Filed: 08/07/18 10:25> - Labs CBC & Chem 7: 08/07/18 06:16 08/06/18 09:10 Laboratory Results - last 24 hr 08/07/18 06:16 WBC 7.4 RBC 2.69 L Hgb 8.2 L Hct 24.7 L MCV 92.1 MCH 30.7 MCHC 33.3 RDW 15.5 Plt Count 313 MPV 6.7 L Prelim Diff (Auto) Slide review pending Neut % (Auto) 77.0 H Lymph % (Auto) 9.1 [place] % (Auto) 11.7 H Eos % (Auto) 1.9 Baso % (Auto) 0.3 Neut # (Auto) 5.7 Lymph # (Auto) 0.7 L [place] # (Auto) 0.9 Eos # (Auto) 0.1 Baso # (Auto) 0.0 WBC Differential . Diff Scan Auto diff confirmed Differential Comment . Microbiology 08/05/18 10:41 Blood - Peripheral Aerobic Blood Culture - Preliminary No growth in 2 days 08/05/18 10:41 Blood - Peripheral Anaerobic Blood Culture - Preliminary No growth in 2 days 08/05/18 08:30 Blood - Peripheral Aerobic Blood Culture - Preliminary No growth in 2 days 08/05/18 08:30 Blood - Peripheral Anaerobic Blood Culture - Preliminary No growth in 2 days 08/02/18 00:55 Blood - Peripheral Aerobic Blood Culture - Final No growth in 5 days 08/02/18 00:55 Blood - Peripheral Anaerobic Blood Culture - Final No growth in 5 days 08/02/18 01:00 Blood - Peripheral Aerobic Blood Culture - Final No growth in 5 days 08/02/18 01:00 Blood - Peripheral Anaerobic Blood Culture - Final No growth in 5 days 08/05/18 08:30 Clean Catch Urine Urine Culture - Final No growth in 48 hours <Judith Austin - Last Filed: 08/07/18 15:39> Assessment and Plan - Plan Uncontrolled Rectal pain, symptoms and onset have been off and on for the past few months and continue to worsen. History of constipation with straining. External hemorrhoids evident. Stools are hard brown no obvious bleeding and BMs are every 1-2 days. Patient was using Colace stool softeners at home and was placed on Amitiza. Patient had a large formed bowel movement today and is continuing to complain of uncontrolled rectal discomfort. Patient does have external hemorrhoids. Patient was able to tolerate a suppository at home but was unable to use applicator with cream. Gastroenterology has been consulted to assist with his symptoms and patient is hoping for some medical management and rectal pain control Anemia probable some acute on chronic since patient is having some hematuria and also has prostate cancer . current labs hemoglobin is 7.7, PT/INR 1.1 bilirubin and LFTs are normal. Patient is awake answering simple questions and noted last colonoscopy was around 5 years ago. Patient and 's current main goal is pain control medical management. Gastroenterology has been consulted to assist with his symptoms. And a plan of care. 08/06/2018 hemoglobin now 9.8, status post transfusions which has helped patient feel better WBC count 12.1 no obvious rectal bleeding patient states lidocaine cream did help the rectal area. History of external hemorrhoids. Rectal exam today per Dr. Man. Patient's hematuria is now much more controlled no obvious bleeding. Continue to monitor patient's symptoms. 08/07/2018. Medications of Anusol HC suppositories and lidocaine cream seem to be relieving patient's rectal pain which is possibly due to hemorrhoids or fissure. Patient actually has external hemorrhoids which appear to be soft. Again encourage patient not to strain but according to the record patient had 3- 4 large BMs in the past 24 hours. Anemia, hemoglobin 8.2 today which is decreased from last check of 9.8 but hematuria seems to be improved. Patient now has suprapubic cath with clear yellow urine. From a GI perspective patient's seems to be stable from his rectal pain and GI will see as needed or sign off. Thank you for the consult Plan Diet as tolerated per attending Anusol HC suppositories along with lidocaine 5% rectal clean as needed Avoid straining with defecation Stool softeners Colace 100 mg 3 times daily, other bowel regimen meds as needed Monitor hemoglobin and labs Patient was seen per myself and Dr. Austin, note was written on his behalf <Olga Mac - Last Filed: 08/07/18 10:25> - Plan Seen and examined with CERTIFIED RESIDENTIAL MEDICATION AIDE, sleeping comfortably. Discussed with possibility of sigmoidoscopy vs. colonoscopy. Tentative orders placed but later the nurse called me back and said patient has refused any gi testing at this time. Will sign off, fu as outpatient please. Thank you The exam, history, and the medical decision-making described in the above note were completed with the assistance of the mid-level provider. I reviewed and agree with the findings presented. I attest that I had a [id number] encounter with the patient on the same day, and personally performed and documented my assessment and findings in the medical record. <Judith Austin - Last Filed: 08/07/18 15:39>
[2018-08-07] MEDS: Tolterodine Tartrate LA 4 MG Capsule PO SCH (11:44)
--- NOTE | 2018-08-07 14:11 | P.PN ---
Subjective Interval history: Nursing denies any deterioration since last night. Patient himself says he feels much better today and at that the Engel catheter is out. Ultimately is also deciding to not undergo the sigmoidoscopy tomorrow. Has had a fever today but of the lower intensity of 100.5. Did not have a fever yesterday evening. Physical Exam Vital signs: Vital Signs 08/06/18 16:00 08/06/18 20:00 08/07/18 00:00 Temperature 98.3 F 98.6 F 98.7 F Pulse Rate 77 85 79 Respiratory Rate 20 16 17 Blood Pressure 108/62 104/54 L 111/58 L Pulse Oximetry 97 95 96 08/07/18 04:00 08/07/18 09:34 08/07/18 11:41 Temperature 98.3 F 100.5 F H 97.5 F L Pulse Rate 92 H 87 70 Respiratory Rate 16 16 16 Blood Pressure 113/56 L 107/63 94/49 L Pulse Oximetry 94 L 95 08/07/18 11:47 Temperature Pulse Rate Respiratory Rate Blood Pressure 102/51 L Pulse Oximetry Intake & Output 08/06/18 08/07/18 08/07/18 18:59 06:59 18:59 Intake Total 900 / 900 580 / 580 100 / 100 Output Total 3600 / 3600 Balance -2700 / -2700 580 / 580 100 / 100 Weight 81.2 kg Intake: IV 200 / 200 100 / 100 100 / 100 Levaquin 500 mg Premix Inj 500 100 / 100 mg In 100 ml @ 100 mls/hr IV. SIG Q48H [facility] Rx#:[id number] Merrem Inj 1,000 MG In NS Inj 100 / 100 100 / 100 100 / 100 100 ML @ 200 mls/hr IV.SIG Q12H [facility] Rx#:[id number] Oral 700 / 700 480 / 480 Output: Urine Amount (Catheter) 3600 / 3600 Suprapubic 3600 / 3600 Other: Bladder Irrigation Fluid - Amount Instilled Indwelling Urethral Catheter 9,500 Suprapubic 6,000 Bladder Irrigation Fluid - Amount Drained Indwelling Urethral Catheter 10,450 Suprapubic 2,600 Date of Last Bowel Movement 08/06/18 08/06/18 # Bowel Movements 4 Narrative: Heart sounds regular rate rhythm, no murmurs Clear lungs bilaterally, unlabored breathing - Urinary Catheter Management Indwelling Urethral Catheter Cath placed during this visit: yes, but has since been removed by the nurse Reason for continuing: Decision to DC catheter Insertion date: 08/05/18 Insertion time: 18:00 Removal date: 08/07/18 Removal time: 08:30 Suprapubic Cath placed during this visit: yes Reason for continuing: Acute urinary retention Insertion date: 08/03/18 3-way Urethral Cath placed during this visit: yes Reason for continuing: Gross Hematuria Insertion date: 08/03/18 Results - Labs CBC & Chem 7: 08/07/18 06:16 08/06/18 09:10 Laboratory Results - last 24 hr 08/07/18 06:16 WBC 7.4 RBC 2.69 L Hgb 8.2 L Hct 24.7 L MCV 92.1 MCH 30.7 MCHC 33.3 RDW 15.5 Plt Count 313 MPV 6.7 L Prelim Diff (Auto) Slide review pending Neut % (Auto) 77.0 H Lymph % (Auto) 9.1 [place] % (Auto) 11.7 H Eos % (Auto) 1.9 Baso % (Auto) 0.3 Neut # (Auto) 5.7 Lymph # (Auto) 0.7 L [place] # (Auto) 0.9 Eos # (Auto) 0.1 Baso # (Auto) 0.0 WBC Differential . Diff Scan Auto diff confirmed Differential Comment . Microbiology 08/05/18 10:41 Blood - Peripheral Aerobic Blood Culture - Preliminary No growth in 2 days 08/05/18 10:41 Blood - Peripheral Anaerobic Blood Culture - Preliminary No growth in 2 days 08/05/18 08:30 Blood - Peripheral Aerobic Blood Culture - Preliminary No growth in 2 days 08/05/18 08:30 Blood - Peripheral Anaerobic Blood Culture - Preliminary No growth in 2 days 08/02/18 00:55 Blood - Peripheral Aerobic Blood Culture - Final No growth in 5 days 08/02/18 00:55 Blood - Peripheral Anaerobic Blood Culture - Final No growth in 5 days 08/02/18 01:00 Blood - Peripheral Aerobic Blood Culture - Final No growth in 5 days 08/02/18 01:00 Blood - Peripheral Anaerobic Blood Culture - Final No growth in 5 days 08/05/18 08:30 Clean Catch Urine Urine Culture - Final No growth in 48 hours - Procedures 08/03/2018 Cystoscopy with placement of suprapubic tube, cystogram 07/29/2018 Cystoscopy with fulguration of prostate bleeding Assessment and Plan - Assessment (1) Acute UTI Code(s): N39.0 - Urinary tract infection, site not specified Status: Acute (2) Prostate cancer metastatic to bone Code(s): C61 - Malignant neoplasm of prostate; C79.51 - Secondary malignant neoplasm of bone Status: Acute - Plan Mr. Queen is a pleasant 73-year-old male with a history of metastatic prostate carcinoma who was admitted to the hospital due to fever, hematuria and pelvic pain. Infectious disease as well as oncology and urology have been following patient. Patient is currently on levofloxacin and Zosyn for suspected prostatitis. Acute prostatitis -Continue levofloxacin and meropenem per infectious disease -Blood cx negative. Urine cx from 07/22/2018 showed Staph Epi. -Another fever last night but to a lower extent, blood cultures are negative again from 08/05 Rectal pain -Possible anal fissure versus hemorrhoids, GI recommendations sigmoidoscopy with patient is deferring this at the time. Anal gel for pain symptoms. Back pain -Added Lidoderm patch Persistent hematuria Bilateral hydronephrosis on ultrasound left greater than right -Radiation oncology is planning treatments. -Suprapubic catheter placement on 08/03/2018. -Successful voiding trial today after urology has removed catheter Acute post-hemorrhagic anemia due to Genitourinary tract bleeding. -Two units of PRBCs on 08/02/2018. Metastatic prostate carcinoma -Oncology is following. Patient is has had good response to leuprolide and Enzalutamide (Xtandi). -Continue oxycodone for pain control. Continue long-acting OxyContin 20 mg twice daily. Hypocalcemia Acute kidney injury on Chronic kidney disease -Nephrology is following. Creatinine hovering around 2.2-2.3. -Stabilized Full code. Ambulation. Pharmacological DVT prophylaxis contraindicated at this point. Discharge Planning: Discharge plan: Difficult discharge due to persistent/recurrent hematuria. Voiding trial on 08/07/2018. Possible discharge early next week.
[2018-08-07] MEDS ORDERED: Magnesium Citrate Liq 300 ML Bottle PO ONE (16:00)
--- NOTE | 2018-08-07 18:44 | P.PNID ---
Subjective Remarks: ID Coverage Over 24 hrs just 1 time low grade fever Pt refused to have flexsig in-pt , wants to follow with his own GI provider as o /p rectal pain " somewhat better" Antibiotics: meropenem levaquin Past Medical History: Hep B Hypertension Kidney disease Prostate cancer with bone mets S/P hip surgery Allergies/Adverse Reactions: Allergies morphine Allergy (Severe, Verified 07/22/18 11:48) MORPHINE ALLERGY ADDED 12/19/07 @1500 - N/V Objective Vital Signs 08/06/18 20:00 08/07/18 00:00 08/07/18 04:00 Temperature 98.6 F 98.7 F 98.3 F Pulse Rate 85 79 92 H Respiratory Rate 16 17 16 Blood Pressure 104/54 L 111/58 L 113/56 L Pulse Oximetry 95 96 94 L 08/07/18 09:34 08/07/18 11:41 08/07/18 11:47 Temperature 100.5 F H 97.5 F L Pulse Rate 87 70 Respiratory Rate 16 16 Blood Pressure 107/63 94/49 L 102/51 L Pulse Oximetry 95 08/07/18 15:00 08/07/18 16:00 Temperature 97.4 F L 97.4 F L Pulse Rate 63 63 Respiratory Rate 16 16 Blood Pressure 112/62 112/62 Pulse Oximetry 96 96 Intake & Output 08/06/18 08/07/18 08/07/18 18:59 06:59 18:59 Intake Total 900 / 900 580 / 580 980 / 980 Output Total 3600 / 3600 850 / 850 Balance -2700 / -2700 580 / 580 130 / 130 Weight 81.2 kg Intake: IV 200 / 200 100 / 100 100 / 100 Levaquin 500 mg Premix Inj 500 100 / 100 mg In 100 ml @ 100 mls/hr IV. SIG Q48H [facility] Rx#:[id number] Merrem Inj 1,000 MG In NS Inj 100 / 100 100 / 100 100 / 100 100 ML @ 200 mls/hr IV.SIG Q12H [facility] Rx#:[id number] Oral 700 / 700 480 / 480 880 / 880 Output: Urine Amount (Catheter) 3600 / 3600 850 / 850 Suprapubic 3600 / 3600 850 / 850 Other: Bladder Irrigation Fluid - Amount Instilled Indwelling Urethral Catheter 9,500 Suprapubic 6,000 Bladder Irrigation Fluid - Amount Drained Indwelling Urethral Catheter 10,450 Suprapubic 2,600 Date of Last Bowel Movement 08/06/18 08/06/18 # Bowel Movements 4 08/05/18 10:41 Blood - Peripheral Aerobic Blood Culture - Preliminary No growth in 2 days 08/05/18 10:41 Blood - Peripheral Anaerobic Blood Culture - Preliminary No growth in 2 days 08/05/18 08:30 Blood - Peripheral Aerobic Blood Culture - Preliminary No growth in 2 days 08/05/18 08:30 Blood - Peripheral Anaerobic Blood Culture - Preliminary No growth in 2 days 08/02/18 00:55 Blood - Peripheral Aerobic Blood Culture - Final No growth in 5 days 08/02/18 00:55 Blood - Peripheral Anaerobic Blood Culture - Final No growth in 5 days 08/02/18 01:00 Blood - Peripheral Aerobic Blood Culture - Final No growth in 5 days 08/02/18 01:00 Blood - Peripheral Anaerobic Blood Culture - Final No growth in 5 days 08/05/18 08:30 Clean Catch Urine Urine Culture - Final No growth in 48 hours Lab - Hematology Results 08/06/18 08/07/18 09:10 06:16 WBC 12.1 H 7.4 RBC 3.20 L 2.69 L Hgb 9.8 L D 8.2 L Hct 29.2 L 24.7 L MCV 91.0 92.1 MCH 30.7 30.7 MCHC 33.7 33.3 RDW 15.7 15.5 Plt Count 419 D 313 MPV 6.7 L 6.7 L Prelim Diff (Auto) Slide review pending Slide review pending Neut % (Auto) 71.5 H 77.0 H Lymph % (Auto) 15.8 9.1 [place] % (Auto) 10.0 H 11.7 H Eos % (Auto) 1.2 1.9 Baso % (Auto) 1.5 0.3 Neut # (Auto) 8.6 H 5.7 Lymph # (Auto) 1.9 0.7 L [place] # (Auto) 1.2 H 0.9 Eos # (Auto) 0.1 0.1 Baso # (Auto) 0.2 0.0 WBC Differential . . Diff Scan Auto diff confirmed Auto diff confirmed Differential Comment . . Platelet Estimate Normal Platelet Morphology Normal Lab - Chemistry Results 08/06/18 09:10 Sodium 139 Potassium 3.6 Chloride 106 Carbon Dioxide 25.5 Anion Gap 8 BUN 25 H Creatinine 2.24 H Estimated GFR 29 L Random Glucose 116 H Calcium 7.2 L* Prot Corrected Calcium 7.3 L* Total Protein 6.9 D Imaging: ITS Impressions Chest X-Ray 07/22/18 11:00 CONCLUSION: The lungs are grossly clear. Sclerotic metastatic disease. Abdomen/Bladder Ultrasound 07/23/18 00:00 CONCLUSION: 1. Significant debris within the bladder likely blood. Mild bilateral hydronephrosis left greater than right. Abdomen/Pelvis CT 07/24/18 00:00 CONCLUSION: 1. Abnormal bladder with increased density consistent with blood products and/ or tumor. A Palacios catheter is present with a small amount of air. 2. New mild to moderate bilateral hydronephrosis. Small bilateral pleural effusions right greater than left. 3. Extensive sclerotic metastatic disease with interval progression. Physical Exam: GENERAL: NAD awake and alert. SKIN: Warm and dry. No rash HEAD: Atraumatic. Normocephalic. EYES: Pupils equal and round. No scleral icterus. No injection or drainage. ENT: No nasal bleeding or discharge. Mucous membranes pink and moist. NECK: Trachea midline. No JVD. CARDIOVASCULAR: Regular rate and rhythm. RESPIRATORY: No accessory muscle use. Clear to auscultation. Breath sounds equal bilaterally. GASTROINTESTINAL: Abdomen soft, tender to palpation in lower quadrants w/o guarding or rebound SPC site with dry dressing, urine looks clear : palacios in place getting CBI MUSCULOSKELETAL: Extremities without clubbing, cyanosis, No calf tenderness. NEUROLOGICAL: letahrgic No obvious cranial nerve deficits. Motor grossly within normal limits. Five out of 5 muscle strength in the arms and legs. Normal speech. PSYCHIATRIC: flat affects Assessment and Plan - Plan Impression Metastatic prostate cancer FUO (6 weeks) Hematuria Probably UTI - Staph epi not a typical pathogen GENI - worse Persistent fever and rectal pain - proctitis? Recommendation Continue levaquin Continue meropenem Follow new C/S CMV PCR fu P blood clx, WBC and temps
[2018-08-07] MEDS: Latanoprost 0.005% Opth Drops 2.5 ML Bottle EACH EYE SCH (20:10)
[2018-08-08] MEDS: HYDROmorphone PF Inj 2 MG/ML Vial IV.PUSH PRN ×2 (02:57→21:58)
--- NOTE | 2018-08-08 07:48 | P.PNONC ---
Subjective Interval history: Patient seen and examined,Vital signs, labs, medications microbiology and sales representative consultant notes reviewed. Subjectively; patient reports Pain at the tip of the penis and involving the scrotum. Yesterday his Engel catheter was removed, he was no longer on bladder irrigation. Radiation was initiated yesterday. T-max was 100.5 F yesterday. Objective Vital Signs/Intake & Output: Vital Signs 08/07/18 09:34 08/07/18 11:41 08/07/18 11:47 Temperature 100.5 F H 97.5 F L Pulse Rate 87 70 Respiratory Rate 16 16 Blood Pressure 107/63 94/49 L 102/51 L Pulse Oximetry 95 08/07/18 15:00 08/07/18 16:00 08/07/18 20:00 Temperature 97.4 F L 97.4 F L 97.7 F Pulse Rate 63 63 73 Respiratory Rate 16 16 16 Blood Pressure 112/62 112/62 117/58 L Pulse Oximetry 96 96 96 08/08/18 00:00 08/08/18 04:00 Temperature 98.1 F 97.8 F Pulse Rate 75 80 Respiratory Rate 15 16 Blood Pressure 112/65 121/63 Pulse Oximetry 96 96 Intake & Output 08/07/18 08/08/18 08/08/18 18:59 06:59 18:59 Intake Total 980 / 980 1240 / 1240 Output Total 850 / 850 1949 / 1950 Balance 130 / 130 -710 / -710 Weight 81.2 kg 81 kg Intake: IV 100 / 100 100 / 100 Merrem Inj 1,000 MG In NS Inj 100 / 100 100 / 100 100 ML @ 200 mls/hr IV.SIG Q12H [facility] Rx#:[id number] Oral 880 / 880 1140 / 1140 Output: Urine Amount (Catheter) 850 / 850 1949 Suprapubic 850 / 850 1949 Other: Date of Last Bowel Movement 08/06/18 Result Diagrams: 08/07/18 06:16 08/06/18 09:10 Laboratory Results: Laboratory Results - last 24 hr 08/07/18 06:16 WBC Differential . Diff Scan Auto diff confirmed Culture Results: Microbiology 08/05/18 10:41 Aerobic Blood Culture - Preliminary Blood - Peripheral No growth in 2 days Anaerobic Blood Culture - Preliminary No growth in 2 days 08/05/18 08:30 Aerobic Blood Culture - Preliminary Blood - Peripheral No growth in 2 days Anaerobic Blood Culture - Preliminary No growth in 2 days 08/02/18 00:55 Aerobic Blood Culture - Final Blood - Peripheral No growth in 5 days Anaerobic Blood Culture - Final No growth in 5 days 08/02/18 01:00 Aerobic Blood Culture - Final Blood - Peripheral No growth in 5 days Anaerobic Blood Culture - Final No growth in 5 days 08/05/18 08:30 Urine Culture - Final Clean Catch Urine No growth in 48 hours Medications: Active Medications Generic Name Dose Route Start Last Admin Trade Name Freq PRN Reason Stop Dose Admin Acetaminophen 650 mg 07/22/18 13:55 08/07/18 09:48 Tylenol PO 650 mg Q4H PRN Administration fever Acetaminophen 650 mg 07/29/18 08:29 08/01/18 20:35 Tylenol PO 650 mg Q4H PRN Administration SEE LABEL COMMENTS Belladonna Alkaloids/Opium 60 mg 08/02/18 15:30 08/06/18 13:53 B & O Supp RECTAL 60 mg Q6HR PRN Administration BLADDER SPASM Bupropion HCl 150 mg 07/22/18 14:00 08/07/18 09:49 Wellbutrin Xl PO 150 mg DAILY MILDRED Administration Sodium Chloride 3,000 ml/ 0 ml 07/29/18 23:03 08/06/18 13:28 Aminocaproic Acid 3,000 mg IRRIGATION 3,000 irrig.soln Q24H PRN Administration TO KEEP URINE CLEAR Diazepam 5 mg 07/22/18 13:57 08/04/18 23:23 Valium PO 5 mg DAILY PRN Administration Anxiety Docusate Sodium 100 mg 07/25/18 15:45 08/07/18 17:38 Colace PO 100 mg TID MILDRED Administration Folic Acid 1 mg 07/24/18 12:00 08/07/18 09:49 Folic Acid PO 1 mg DAILY MILDRED Administration Gabapentin 300 mg 07/23/18 21:00 08/07/18 20:07 Neurontin PO 300 mg BID MILDRED Administration Hydrocortisone Acetate 1 applicatio 08/06/18 18:00 08/07/18 17:38 Anusol-Hc RECTAL 1 applicatio TID MILDRED Administration Hydromorphone HCl 0.5 mg 07/26/18 19:30 08/08/18 02:57 Dilaudid Pf Inj IV.PUSH 0.5 mg Q4H PRN Administration BREAKTHROUGH PAIN Levofloxacin/Dextrose 500 mg in 100 mls @ 100 mls/hr 07/31/18 16:00 08/06/18 18:26 Levaquin 500 Mg Premix Inj IV.SIG Infused Q48H MILDRED Infusion Meropenem 1,000 mg/ Sodium 100 mls @ 200 mls/hr 07/31/18 20:00 08/07/18 21:23 Chloride IV.SIG Infused Q12H MILDRED Infusion Lactulose 30 ml 08/07/18 09:00 08/07/18 20:08 Lactulose Liq PO Not Given BID MILDRED Latanoprost 1 drop 07/22/18 21:00 08/07/18 20:10 Xalatan 0.005% Opth Drops EACH EYE 1 drop HS MILDRED Administration Lidocaine HCl 1 applicatio 08/05/18 17:15 08/05/18 20:46 Xylocaine 5% Oint TOPICAL 1 applicatio Q8H PRN Administration Acute Pain Lidocaine HCl 1 patch 08/06/18 15:00 08/07/18 09:48 Lidoderm 5% Patch.12 Hr T-DERMAL 1 patch DAILY MILDRED Administration Oxycodone HCl 5 mg 07/22/18 14:46 08/08/18 04:50 Roxicodone PO 5 mg Q4H PRN Administration breakthrough pain Oxycodone HCl 20 mg 08/01/18 20:00 08/07/18 20:06 Oxycontin Cr PO 20 mg Q12H MILDRED Administration Patch Removal 1 each 08/06/18 21:00 08/07/18 20:08 Remove Old Patch T-DERMAL 1 each HS MILDRED Administration Tenofovir Disoproxil Fumarate 300 mg 07/24/18 09:00 08/07/18 09:49 Viread PO 300 mg EVERY OTHER DAY MILDRED Administration Tolterodine Tartrate 4 mg 07/24/18 13:00 08/07/18 11:44 Detrol La PO 4 mg DAILY MILDRED Administration Vitamin D 2,000 unit 07/25/18 09:00 08/07/18 09:49 Vitamin D3 PO 2,000 unit DAILY MILDRED Administration Objective Remarks: GENERAL: Elderly male, laying in bed, not acutely distressed, awake, alert and oriented he appears to be chronically ill. Somewhat frail appearing. SKIN: Pale, warm and dry. HEAD: Normocephalic. EYES: Conjunctivae pale, no scleral icterus. No injection or drainage. NECK: Supple, trachea midline. No JVD or lymphadenopathy. LYMPHATIC: No adenopathy. CARDIOVASCULAR: Regular rate and rhythm without murmurs. RESPIRATORY: Breath sounds equal bilaterally. No accessory muscle use. GASTROINTESTINAL: Thin abdomen, soft, tenderness over the left lower quadrant, positive bowel sounds. Now with suprapubic catheter in place. Engel Catheter has been removed. Bladder irrigation has been d/flash. Tip of penis examined: No bleeding, skin appears to be normal, no inflammation. Scrotum examined, testicles and spermatic cord appear to be normal. No julio cesar noted. No skin changes. The perineum was tender to palpation and tender to pressure. EXTREMITIES: No cyanosis, pitting edema noted around the ankles and dependent portions of the leg. MUSCULOSKELETAL: Generally decreased muscle mass. NEUROLOGICAL: Awake, alert, oriented, he has asked direct assist type clonus involving the hands. PSYCHIATRIC: Appropriate mood and affect; insight and judgment normal. Assessment/Plan - Plan Mr. Queen Is a 73-year-old man with a diagnosis of metastatic prostate carcinoma , he has had an excellent response to combination therapy consisting of leuprolide and Xtandi. His PSA levels have been less than 0.1 ng/dL over the past several months. He has extensive metastatic disease burden involving his axial skeleton especially his pelvis. Most recent PET CT scan revealed most of his previously active metastatic disease to be dormant, he however had intense hypermetabolic activity localized to the prostate and to the bladder. In late June he underwent cystoscopy for workup of hematuria with his former urologist Dr. Parmar, no obvious cause for hematuria was identified. He is now in the hospital with fevers, hematuria and pelvic pain. Clinically he has suspected prostatitis and is on broad-spectrum antibiotics with Zosyn and levofloxacin. Urine cultures and blood cultures are negative thus far other than forced staph epidermidis. CT scan of the abdomen/pelvis revealed no obvious cause for the hematuria. Recommendations: 1. Febrile illness: Had temp of 100.5F last night, CMV ordered. All cultures remain negative. On empiric coverage with levofloxacin and meropenem. 2. Hematuria: He is no longer having hematuria. Radiation to prostate started on 08/07, Engel Catheter has been d/flash. 3. Pain control, continue long and short acting opioids. Patient feels comfortable at this time. 4. Metastatic prostate carcinoma, PSA less than 0.1; plans to resume Xtandi upon discharge from the hospital. 5. Hemoglobin has declined to 8.4 g/dL today, CBC ordered for this AM. 6. Asterixis: Initiate lactulose.
[2018-08-08] MEDS: Docusate Sodium 100 MG Capsule PO SCH ×3 (08:47→18:04)
[2018-08-08] MEDS: Lidocaine 5% Patch T-DERMAL SCH (08:49)
[2018-08-08] MEDS: buPROPion 150 MG XL 24 HR Tablet PO SCH (08:49)
[2018-08-08] MEDS: Calcium Carbonate 500 MG Tablet PO SCH ×2 (08:50→20:22)
[2018-08-08] MEDS: oxyCODONE 10 MG Controlled Release Tablet PO SCH ×2 (08:50→20:24)
[2018-08-08] MEDS: Gabapentin 300 MG Capsule PO SCH ×2 (08:50→20:23)
[2018-08-08] MEDS: Folic Acid 1 MG Tablet PO SCH (08:50)
[2018-08-08] MEDS: Tolterodine Tartrate LA 4 MG Capsule PO SCH (08:54)
[2018-08-08 09:38] LABS: Baso % (Auto) 0.3 % (0.0-2.0); Eos # (Auto) 0.2 th/mm3 (0.0-0.4); Eos % (Auto) 2.3 % (0.0-4.0); Hematocrit 24.3 % (39.0-51.0); Hemoglobin 8.4 gm/dL (13.0-17.0); Lymph # (Auto) 0.8 th/mm3 (1.0-4.8); Lymph % (Auto) 10.5 % (9.0-44.0); Mean Corpuscular HGB Conc 34.6 % (32.0-36.0); Mean Corpuscular Hemoglobin 31.4 pg (27.0-34.0); Mean Corpuscular Volume 90.7 fL (80.0-100.0); Mean Platelet Volume 6.8 fL (7.0-11.0); Mono # (Auto) 0.8 th/mm3 (0.0-0.9); Mono % (Auto) 10.5 % (0.0-8.0); Neut % (Auto) 76.4 % (16.0-70.0); Platelet Count 326 th/mm3 (150-450); Red Blood Count 2.67 mil/mm3 (4.50-5.90); Red Cell Distribution Width 15.5 % (11.6-17.2); White Blood Count 7.9 th/mm3 (4.0-11.0)
--- NOTE | 2018-08-08 09:48 | P.PNNP ---
Subjective Interval history: Hematuria has subsided. Low grade fever yesterday. On Meropenem and Levaquin. Notes were reviewed. Urethral catheter removed yesterday. XRT initiated yesterday to prostate. Physical Exam Vital signs: Vital Signs 08/07/18 11:41 08/07/18 11:47 08/07/18 15:00 Temperature 97.5 F L 97.4 F L Pulse Rate 70 63 Respiratory Rate 16 16 Blood Pressure 94/49 L 102/51 L 112/62 Pulse Oximetry 95 96 08/07/18 16:00 08/07/18 20:00 08/08/18 00:00 Temperature 97.4 F L 97.7 F 98.1 F Pulse Rate 63 73 75 Respiratory Rate 16 16 15 Blood Pressure 112/62 117/58 L 112/65 Pulse Oximetry 96 96 96 08/08/18 04:00 08/08/18 08:41 Temperature 97.8 F 98.9 F Pulse Rate 80 93 H Respiratory Rate 16 18 Blood Pressure 121/63 123/68 Pulse Oximetry 96 93 L Intake & Output 08/07/18 08/08/18 08/08/18 18:59 06:59 18:59 Intake Total 980 / 980 1240 / 1240 100 / 100 Output Total 850 / 850 1949 Balance 130 / 130 -710 / -710 100 / 100 Weight 81.2 kg 81 kg Intake: IV 100 / 100 100 / 100 100 / 100 Merrem Inj 1,000 MG In NS Inj 100 / 100 100 / 100 100 / 100 100 ML @ 200 mls/hr IV.SIG Q12H [facility] Rx#:[id number] Oral 880 / 880 1140 / 1140 Output: Urine Amount (Catheter) 850 / 850 1949 Suprapubic 850 / 850 1949 Other: Date of Last Bowel Movement 08/06/18 08/06/18 Narrative: Chest: clear. Heart: RRR Abdomen: suprapubic catheter in place. No edema. Frail. Alert, oriented. - Urinary Catheter Management Indwelling Urethral Catheter Cath placed during this visit: yes, but has since been removed by the nurse Reason for continuing: Decision to DC catheter Insertion date: 08/05/18 Insertion time: 18:00 Removal date: 08/07/18 Removal time: 08:30 Suprapubic Cath placed during this visit: yes Reason for continuing: Gross Hematuria Insertion date: 08/03/18 3-way Urethral Cath placed during this visit: yes Reason for continuing: Gross Hematuria Insertion date: 08/03/18 Assessment and Plan - Assessment (1) Acute on chronic kidney failure Code(s): N17.9 - Acute kidney failure, unspecified; N18.9 - Chronic kidney disease, unspecified Status: Acute Plan: patient's renal function is stable, labs from today are pending. this may be a new baseline. Monitor. Avoid nephrotoxic agents. Monitor urine output. (2) Gross hematuria Code(s): R31.0 - Gross hematuria Status: Acute Plan: Urology following. Possible bleeding from prostate. May have prostatitis. Underwent suprapubic catheter placement. Being followed by Oncology and urology. (3) Prostate cancer metastatic to bone Code(s): C61 - Malignant neoplasm of prostate; C79.51 - Secondary malignant neoplasm of bone Status: Acute Plan: Hematology/Oncology note was reviewed. (4) Acute UTI Code(s): N39.0 - Urinary tract infection, site not specified Status: Acute Plan: Possible prostatitis. On antibiotics.
[2018-08-08 10:38] LABS: Albumin 1.7 g/dL (3.4-5.0); Calcium 7.2 mg/dL (8.5-10.1); Carbon Dioxide 27.3 meq/L (21.0-32.0); Potassium 3.6 meq/L (3.5-5.1)
[2018-08-08] MEDS: Acetaminophen 325 MG Tablet PO PRN ×2 (12:10→23:56)
--- NOTE | 2018-08-08 14:04 | P.PNURO ---
Subjective Patient symptoms today: Pt seen and examined. C/o fever. Urine is now clear. Objective Vital Signs: Vital Signs 08/07/18 15:00 08/07/18 16:00 08/07/18 20:00 Temperature 97.4 F L 97.4 F L 97.7 F Pulse Rate 63 63 73 Respiratory Rate 16 16 16 Blood Pressure 112/62 112/62 117/58 L Pulse Oximetry 96 96 96 08/08/18 00:00 08/08/18 04:00 08/08/18 08:41 Temperature 98.1 F 97.8 F 98.9 F Pulse Rate 75 80 93 H Respiratory Rate 15 16 18 Blood Pressure 112/65 121/63 123/68 Pulse Oximetry 96 96 93 L 08/08/18 10:45 08/08/18 12:07 08/08/18 13:23 Temperature 99 F 100.7 F H 100.1 F H Pulse Rate 93 H Respiratory Rate 18 Blood Pressure 126/58 L Pulse Oximetry 94 L Intake & Output 08/07/18 08/08/18 08/08/18 18:59 06:59 18:59 Intake Total 980 / 980 1240 / 1240 100 / 100 Output Total 850 / 850 1949 Balance 130 / 130 -710 / -710 100 / 100 Weight 81.2 kg 81 kg Intake: IV 100 / 100 100 / 100 100 / 100 Merrem Inj 1,000 MG In NS Inj 100 / 100 100 / 100 100 / 100 100 ML @ 200 mls/hr IV.SIG Q12H [facility] Rx#:[id number] Oral 880 / 880 1140 / 1140 Output: Urine Amount (Catheter) 850 / 850 1949 Suprapubic 850 / 850 1949 Other: Date of Last Bowel Movement 08/06/18 08/06/18 Result Diagrams: 08/08/18 08:54 08/08/18 08:54 Procedures: Suprapubic catheter gently repositioned after balloon deflated. Balloon subsequently reinflated with 10 cc sterile water. Catheter then secured to lower abdomen with fixation device. Three-way Palacios catheter then replaced with a 20 Singaporean two-way Palacios catheter and subsequently irrigated with evacuation of a few small clots. CBI then re- implemented with inflow via the Palacios and outflow via the suprapubic catheter and titrated to light pink return. Medications and IVs: Active Medications Generic Name Dose Route Start Last Admin Trade Name Freq PRN Reason Stop Dose Admin Acetaminophen 650 mg 07/22/18 13:55 08/08/18 12:10 Tylenol PO 650 mg Q4H PRN Administration fever Acetaminophen 650 mg 07/29/18 08:29 08/01/18 20:35 Tylenol PO 650 mg Q4H PRN Administration SEE LABEL COMMENTS Belladonna Alkaloids/Opium 60 mg 08/02/18 15:30 08/06/18 13:53 B & O Supp RECTAL 60 mg Q6HR PRN Administration BLADDER SPASM Bupropion HCl 150 mg 07/22/18 14:00 08/08/18 08:49 Wellbutrin Xl PO 150 mg DAILY MILDRED Administration Sodium Chloride 3,000 ml/ 0 ml 07/29/18 23:03 08/06/18 13:28 Aminocaproic Acid 3,000 mg IRRIGATION 3,000 irrig.soln Q24H PRN Administration TO KEEP URINE CLEAR Diazepam 5 mg 07/22/18 13:57 08/04/18 23:23 Valium PO 5 mg DAILY PRN Administration Anxiety Docusate Sodium 100 mg 07/25/18 15:45 08/08/18 12:39 Colace PO Not Given TID MILDRED Folic Acid 1 mg 07/24/18 12:00 08/08/18 08:50 Folic Acid PO 1 mg DAILY MILDRED Administration Gabapentin 300 mg 07/23/18 21:00 08/08/18 08:50 Neurontin PO 300 mg BID MILDRED Administration Hydrocortisone Acetate 25 mg 08/05/18 17:13 Hemorrhoidal Hc Supp RECTAL TID PRN Acute Pain Hydrocortisone Acetate 1 applicatio 08/06/18 18:00 08/08/18 12:11 Anusol-Hc RECTAL 1 applicatio TID MILDRED Administration Hydromorphone HCl 0.5 mg 07/26/18 19:30 08/08/18 02:57 Dilaudid Pf Inj IV.PUSH 0.5 mg Q4H PRN Administration BREAKTHROUGH PAIN Levofloxacin/Dextrose 500 mg in 100 mls @ 100 mls/hr 07/31/18 16:00 08/06/18 18:26 Levaquin 500 Mg Premix Inj IV.SIG Infused Q48H MILDRED Infusion Meropenem 1,000 mg/ Sodium 100 mls @ 200 mls/hr 07/31/18 20:00 08/08/18 09:42 Chloride IV.SIG Infused Q12H MILDRED Infusion Lactulose 30 ml 08/07/18 09:00 08/08/18 08:49 Lactulose Liq PO 30 ml BID MILDRED Administration Latanoprost 1 drop 07/22/18 21:00 08/07/18 20:10 Xalatan 0.005% Opth Drops EACH EYE 1 drop HS MILDRED Administration Lidocaine HCl 1 applicatio 08/05/18 17:15 08/05/18 20:46 Xylocaine 5% Oint TOPICAL 1 applicatio Q8H PRN Administration Acute Pain Lidocaine HCl 1 patch 08/06/18 15:00 08/08/18 08:49 Lidoderm 5% Patch.12 Hr T-DERMAL 1 patch DAILY MILDRED Administration Oxycodone HCl 5 mg 07/22/18 14:46 08/08/18 08:52 Roxicodone PO 5 mg Q4H PRN Administration breakthrough pain Oxycodone HCl 20 mg 08/01/18 20:00 08/08/18 08:50 Oxycontin Cr PO 20 mg Q12H MILDRED Administration Patch Removal 1 each 08/06/18 21:00 08/07/18 20:08 Remove Old Patch T-DERMAL 1 each HS MILDRED Administration Pom: (Lubiprostone [ 0 each 07/22/18 21:00 Amitiza] 24 Mcg) PO BID MILDRED Tenofovir Disoproxil Fumarate 300 mg 07/24/18 09:00 08/07/18 09:49 Viread PO 300 mg EVERY OTHER DAY MILDRED Administration Tolterodine Tartrate 4 mg 07/24/18 13:00 08/08/18 08:54 Detrol La PO 4 mg DAILY MILDRED Administration Vitamin D 2,000 unit 07/25/18 09:00 08/08/18 08:51 Vitamin D3 PO 2,000 unit DAILY MILDRED Administration Objective Remarks: VIONNE RRR Clear lungs Palacios is in place, urine is light pink 07/27 Abd:soft,nt,nd Palacios on CBI; now with pink urine; clots cleared. 07/28 Abd:soft,nt, nd Palacios with clear urine. 07/29 Abd:soft,nt,nd Palacios with gross hematuria with clots. 07/30 Abd:soft,nt,nd Palacios; now clear. 07/31 Abd:soft,nt,nd Palacios; now clear. 08/01 Abd:soft,nt,nd Palacios; now clear. 08/02 Abd:soft,nt,nd Palacios: clear. 08/04 Abd:soft,nt,nd Palacios: clear. 08/05 Abdomen soft, with irrigant leakage noted around suprapubic catheter Urine output medium red in color 08/07 Abd:soft,nt,nd Palacios removed at bedside. Urine clear. 08/08 Abd:soft,nt,nd SP tube clear Assessment and Plan - Plan 73y.o M with other medical issues listed in HPI Urology consulted for hematuria, which is resolving now No additional recommendations, same as below - Continue care as per primary team - No acute intervention needed - Hematuria can be related to self cath and UTI as well as to previous radiation. - Continue current treatment, follow ID recommendations - Manual irrigation of the bladder may help to get rid of bladder clots/debris seen in the bladder on Sono. Do it BID - Pt to see his urologist after d/c for further management, may need cysto as outpt. 07/27/18 73 y.o male with metastatic CaP with gross hematuria 24F 3-way palacios in place; clots irrigated and CBI started Hold SQ Heparin; will order SCD's instead Will need cystoscopy at later date and may need HBO as outpt to help RX Radiation cystitis Will follow. 07/28 73 y.o male with metastatic CaP with gross hematuria 24F 3-way palacios in place; urine now clear Cysto as outpt. 07/29 73 y.o male with metastatic CaP with gross hematuria Will need cysto with fulguration of bleeding in OR today Continue NPO. 07/30 73 y.o male with metastatic CaP with gross hematuria Continue supportive measures/transfusion/Amicar CBI To d/w Radiation oncology tomorrow. D/W Dr. Gant 07/31 73 y.o male with metastatic CaP with gross hematuria Continue supportive measures/transfusion/Amicar CBI Possible XRT therapy for control of bleeding. 08/01 73 y.o male with metastatic CaP with gross hematuria Urine now clearing on Amicar CBI XRT to start soon For SP tube insertion on . 08/02 73 y.o male with metastatic CaP with gross hematuria Urine now clearing on Amicar CBI XRT to start soon For SP tube insertion tomorrow. 08/04 Stable s/p SP tube insertion Continue CBI over the weekend Hopeful void trial Tuesday AM if urine remains clear. 08/05 Ongoing hematuria with subsequent blockage of Palacios catheter secondary to clot formation. Suprapubic catheter repositioned and three-way Palacios catheter exchanged for a two-way 20 Singaporean Palacios CBI reimplemented 08/06 CBI running well with resolution of the hematuria. We will continue with CBI at a slow rate and titrate up if necessary. 08/07 73 y.o male with metastatic prostate cancer with gross hematuria Palacios removed at bedside For XRT today. 08/08 73 y.o male with metastatic prostate cancer with gross hematuria Hematuria has resolved. Continue with XRT Fever-ID following.
[2018-08-08] MEDS: Levofloxacin 500 mg Premix Inj 500 MG/100 ML PIGGYBACK IV.SIG SCH (15:35)
--- NOTE | 2018-08-08 16:16 | P.PN ---
Subjective Interval history: Nursing denies any deterioration since last night. Patient did have a fever of 100.7 this a.m. Says his rectal pain is a little bit better. The says that the rectal foam application has significantly helped his rectal pain. Physical Exam Vital signs: Vital Signs 08/07/18 20:00 08/08/18 00:00 08/08/18 04:00 Temperature 97.7 F 98.1 F 97.8 F Pulse Rate 73 75 80 Respiratory Rate 16 15 16 Blood Pressure 117/58 L 112/65 121/63 Pulse Oximetry 96 96 96 08/08/18 08:41 08/08/18 10:45 08/08/18 12:07 Temperature 98.9 F 99 F 100.7 F H Pulse Rate 93 H 93 H Respiratory Rate 18 18 Blood Pressure 123/68 126/58 L Pulse Oximetry 93 L 94 L 08/08/18 13:23 08/08/18 15:20 Temperature 100.1 F H 97.8 F Pulse Rate 70 Respiratory Rate 18 Blood Pressure 116/66 Pulse Oximetry 95 Intake & Output 08/07/18 08/08/18 08/08/18 18:59 06:59 18:59 Intake Total 980 / 980 1240 / 1240 100 / 100 Output Total 850 / 850 1949 Balance 130 / 130 -710 / -710 100 / 100 Weight 81.2 kg 81 kg Intake: IV 100 / 100 100 / 100 100 / 100 Merrem Inj 1,000 MG In NS Inj 100 / 100 100 / 100 100 / 100 100 ML @ 200 mls/hr IV.SIG Q12H [facility] Rx#:[id number] Oral 880 / 880 1140 / 1140 Output: Urine Amount (Catheter) 850 / 850 1949 Suprapubic 850 / 850 1949 Other: Date of Last Bowel Movement 08/06/18 08/06/18 Narrative: Heart sounds regular rate and rhythm, no murmurs Clear lungs bilaterally, unlabored breathing No lower extremity edema Suprapubic catheter in place - Urinary Catheter Management Indwelling Urethral Catheter Cath placed during this visit: yes, but has since been removed by the nurse Reason for continuing: Decision to DC catheter Insertion date: 08/05/18 Insertion time: 18:00 Removal date: 08/07/18 Removal time: 08:30 Suprapubic Cath placed during this visit: yes Reason for continuing: Gross Hematuria Insertion date: 08/03/18 3-way Urethral Cath placed during this visit: yes Reason for continuing: Gross Hematuria Insertion date: 08/03/18 Results - Labs CBC & Chem 7: 08/08/18 08:54 08/08/18 08:54 Laboratory Results - last 24 hr 08/08/18 08/08/18 08:54 08:54 WBC 7.9 RBC 2.67 L Hgb 8.4 L Hct 24.3 L MCV 90.7 MCH 31.4 MCHC 34.6 RDW 15.5 Plt Count 326 MPV 6.8 L Prelim Diff (Auto) Slide review pending Neut % (Auto) 76.4 H Lymph % (Auto) 10.5 [place] % (Auto) 10.5 H Eos % (Auto) 2.3 Baso % (Auto) 0.3 Neut # (Auto) 6.0 Lymph # (Auto) 0.8 L [place] # (Auto) 0.8 Eos # (Auto) 0.2 Baso # (Auto) 0.0 WBC Differential . Diff Scan Auto diff confirmed Differential Comment . Sodium 140 Potassium 3.6 Chloride 104 Carbon Dioxide 27.3 Anion Gap 9 BUN 25 H Creatinine 1.86 H Estimated GFR 36 L Random Glucose 109 H Calcium 7.2 L* Prot Corrected Calcium 7.8 L Total Bilirubin 0.4 AST 27 ALT 13 Alkaline Phosphatase 77 Total Protein 6.0 L D Albumin 1.7 L Microbiology 08/05/18 10:41 Blood - Peripheral Aerobic Blood Culture - Preliminary No growth in 3 days 08/05/18 10:41 Blood - Peripheral Anaerobic Blood Culture - Preliminary No growth in 3 days 08/05/18 08:30 Blood - Peripheral Aerobic Blood Culture - Preliminary No growth in 3 days 08/05/18 08:30 Blood - Peripheral Anaerobic Blood Culture - Preliminary No growth in 3 days - Procedures 08/03/2018 Cystoscopy with placement of suprapubic tube, cystogram 07/29/2018 Cystoscopy with fulguration of prostate bleeding Assessment and Plan - Assessment (1) Acute UTI Code(s): N39.0 - Urinary tract infection, site not specified Status: Acute (2) Prostate cancer metastatic to bone Code(s): C61 - Malignant neoplasm of prostate; C79.51 - Secondary malignant neoplasm of bone Status: Acute - Plan Mr. Queen is a pleasant 73-year-old male with a history of metastatic prostate carcinoma who was admitted to the hospital due to fever, hematuria and pelvic pain. Infectious disease as well as oncology and urology have been following patient. Patient is currently on levofloxacin and meropenem. His hemodynamic status is stable but is still spiking low-grade fevers. Recurrent fevers -Thought to be due to sepsis but at this point being pursued as a fever of unknown origin as the patient's clinical status otherwise from his acute prostatitis is significantly improved. CMV PCR is pending per infectious disease. Rectal pain is thought to be another source and if the CMV PCR is inconclusive or negative, sigmoidoscopy would be warranted, discussed with the patient. Acute prostatitis -Continue levofloxacin and meropenem per infectious disease -Blood cx negative. Urine cx from 07/22/2018 showed Staph Epi. -Another fever last night but to a lower extent, blood cultures are negative again from 08/05 Rectal pain -Possible anal fissure versus hemorrhoids, GI recommendations sigmoidoscopy with patient is deferring this at the time. Anal gel for pain symptoms. Improving overall with foam application, Back pain -Lidoderm patch Persistent hematuria Bilateral hydronephrosis on ultrasound left greater than right -Radiation oncology is planning treatments. -Suprapubic catheter placement on 08/03/2018. -Successful voiding trial today after urology has removed catheter Acute post-hemorrhagic anemia due to Genitourinary tract bleeding. -Two units of PRBCs on 08/02/2018. Metastatic prostate carcinoma -Oncology is following. Patient is has had good response to leuprolide and Enzalutamide (Xtandi). -Continue oxycodone for pain control. Continue long-acting OxyContin 20 mg twice daily. Hypocalcemia Acute kidney injury on Chronic kidney disease -Nephrology is following. Creatinine hovering around 2.2-2.3. -Stabilized Full code. Ambulation. Pharmacological DVT prophylaxis contraindicated at this point. Discharge Planning: Discharge plan: Difficult discharge due to persistent/recurrent hematuria. Voiding trial on 08/07/2018. Possible discharge early next week.
--- NOTE | 2018-08-08 17:52 | P.PNID ---
Subjective Remarks: cont to have fever, low grade and intermittent cont to have pain in rectum CMV undetectable Antibiotics: meropenem levaquin Past Medical History: Hep B Hypertension Kidney disease Prostate cancer with bone mets S/P hip surgery Allergies/Adverse Reactions: Allergies morphine Allergy (Severe, Verified 07/22/18 11:48) MORPHINE ALLERGY ADDED 12/19/07 @1500 - N/V Objective Vital Signs 08/07/18 20:00 08/08/18 00:00 08/08/18 04:00 Temperature 97.7 F 98.1 F 97.8 F Pulse Rate 73 75 80 Respiratory Rate 16 15 16 Blood Pressure 117/58 L 112/65 121/63 Pulse Oximetry 96 96 96 08/08/18 08:41 08/08/18 10:45 08/08/18 12:07 Temperature 98.9 F 99 F 100.7 F H Pulse Rate 93 H 93 H Respiratory Rate 18 18 Blood Pressure 123/68 126/58 L Pulse Oximetry 93 L 94 L 08/08/18 13:23 08/08/18 15:20 Temperature 100.1 F H 97.8 F Pulse Rate 70 Respiratory Rate 18 Blood Pressure 116/66 Pulse Oximetry 95 Intake & Output 08/07/18 08/08/18 08/08/18 18:59 06:59 18:59 Intake Total 980 / 980 1240 / 1240 100 / 100 Output Total 850 / 850 1949 Balance 130 / 130 -710 / -710 100 / 100 Weight 81.2 kg 81 kg Intake: IV 100 / 100 100 / 100 100 / 100 Merrem Inj 1,000 MG In NS Inj 100 / 100 100 / 100 100 / 100 100 ML @ 200 mls/hr IV.SIG Q12H [facility] Rx#:[id number] Oral 880 / 880 1140 / 1140 Output: Urine Amount (Catheter) 850 / 850 1949 Suprapubic 850 / 850 1949 Other: Date of Last Bowel Movement 08/06/18 08/06/18 08/05/18 10:41 Blood - Peripheral Aerobic Blood Culture - Preliminary No growth in 3 days 08/05/18 10:41 Blood - Peripheral Anaerobic Blood Culture - Preliminary No growth in 3 days 08/05/18 08:30 Blood - Peripheral Aerobic Blood Culture - Preliminary No growth in 3 days 08/05/18 08:30 Blood - Peripheral Anaerobic Blood Culture - Preliminary No growth in 3 days 08/02/18 00:55 Blood - Peripheral Aerobic Blood Culture - Final No growth in 5 days 08/02/18 00:55 Blood - Peripheral Anaerobic Blood Culture - Final No growth in 5 days 08/02/18 01:00 Blood - Peripheral Aerobic Blood Culture - Final No growth in 5 days 08/02/18 01:00 Blood - Peripheral Anaerobic Blood Culture - Final No growth in 5 days 08/05/18 08:30 Clean Catch Urine Urine Culture - Final No growth in 48 hours Lab - Hematology Results 08/07/18 08/08/18 06:16 08:54 WBC 7.4 7.9 RBC 2.69 L 2.67 L Hgb 8.2 L 8.4 L Hct 24.7 L 24.3 L MCV 92.1 90.7 MCH 30.7 31.4 MCHC 33.3 34.6 RDW 15.5 15.5 Plt Count 313 326 MPV 6.7 L 6.8 L Prelim Diff (Auto) Slide review pending Slide review pending Neut % (Auto) 77.0 H 76.4 H Lymph % (Auto) 9.1 10.5 [place] % (Auto) 11.7 H 10.5 H Eos % (Auto) 1.9 2.3 Baso % (Auto) 0.3 0.3 Neut # (Auto) 5.7 6.0 Lymph # (Auto) 0.7 L 0.8 L [place] # (Auto) 0.9 0.8 Eos # (Auto) 0.1 0.2 Baso # (Auto) 0.0 0.0 WBC Differential . . Diff Scan Auto diff confirmed Auto diff confirmed Differential Comment . . Lab - Chemistry Results 08/08/18 08:54 Sodium 140 Potassium 3.6 Chloride 104 Carbon Dioxide 27.3 Anion Gap 9 BUN 25 H Creatinine 1.86 H Estimated GFR 36 L Random Glucose 109 H Calcium 7.2 L* Prot Corrected Calcium 7.8 L Total Bilirubin 0.4 AST 27 ALT 13 Alkaline Phosphatase 77 Total Protein 6.0 L D Albumin 1.7 L Imaging: ITS Impressions Chest X-Ray 07/22/18 11:00 CONCLUSION: The lungs are grossly clear. Sclerotic metastatic disease. Abdomen/Bladder Ultrasound 07/23/18 00:00 CONCLUSION: 1. Significant debris within the bladder likely blood. Mild bilateral hydronephrosis left greater than right. Abdomen/Pelvis CT 07/24/18 00:00 CONCLUSION: 1. Abnormal bladder with increased density consistent with blood products and/ or tumor. A Palacios catheter is present with a small amount of air. 2. New mild to moderate bilateral hydronephrosis. Small bilateral pleural effusions right greater than left. 3. Extensive sclerotic metastatic disease with interval progression. Physical Exam: GENERAL: NAD awake and alert. SKIN: Warm and dry. No rash HEAD: Atraumatic. Normocephalic. EYES: Pupils equal and round. No scleral icterus. No injection or drainage. ENT: No nasal bleeding or discharge. Mucous membranes pink and moist. NECK: Trachea midline. No JVD. CARDIOVASCULAR: Regular rate and rhythm. RESPIRATORY: No accessory muscle use. Clear to auscultation. Breath sounds equal bilaterally. GASTROINTESTINAL: Abdomen soft, tender to palpation in lower quadrants w/o guarding or rebound SPC site with marked eaking around it : palacios in place, no bleeding MUSCULOSKELETAL: Extremities without clubbing, cyanosis, No calf tenderness. +1 soft pitting edema NEUROLOGICAL: awake, alert No obvious cranial nerve deficits. Motor grossly within normal limits. Five out of 5 muscle strength in the arms and legs. Normal speech. PSYCHIATRIC: flat affects Assessment and Plan - Plan Impression Metastatic prostate cancer FUO (6 weeks) Hematuria Probably UTI - Staph epi not a typical pathogen GENI - slighly better Persistent fever and rectal pain - proctitis? Recommendation dc levaquin dc meropenem start zosyn, renally adjusted Follow new C/S fu P blood clx, WBC and temps
[2018-08-08] MEDS: Piperacil/Tazo 2.25 GM Premix 50 ML IV.SIG SCH ×2 (18:31→23:52)
[2018-08-08] MEDS: Latanoprost 0.005% Opth Drops 2.5 ML Bottle EACH EYE SCH (20:25)
[2018-08-09] MEDS: Piperacil/Tazo 2.25 GM Premix 50 ML IV.SIG SCH ×4 (05:14→23:59)
[2018-08-09] MEDS: Folic Acid 1 MG Tablet PO SCH (08:34)
[2018-08-09] MEDS: Tenofovir 300 MG Tablet PO SCH (08:34)
[2018-08-09] MEDS: oxyCODONE 10 MG Controlled Release Tablet PO SCH ×2 (08:34→22:20)
[2018-08-09] MEDS: Gabapentin 300 MG Capsule PO SCH ×2 (08:34→20:28)
[2018-08-09] MEDS: Tolterodine Tartrate LA 4 MG Capsule PO SCH (08:34)
[2018-08-09] MEDS: Calcium Carbonate 500 MG Tablet PO SCH ×2 (08:34→22:20)
[2018-08-09] MEDS: Docusate Sodium 100 MG Capsule PO SCH ×2 (08:34→20:02)
[2018-08-09] MEDS: buPROPion 150 MG XL 24 HR Tablet PO SCH (08:34)
[2018-08-09] MEDS: Lidocaine 5% Patch T-DERMAL SCH (08:35)
[2018-08-09 08:38] LABS: Albumin 1.7 g/dL (3.4-5.0); Carbon Dioxide 26.6 meq/L (21.0-32.0); Phosphorus 2.6 mg/dL (2.5-4.9); Potassium 3.2 meq/L (3.5-5.1)
--- NOTE | 2018-08-09 09:39 | P.PNONC ---
Subjective Interval history: T-max 102.1 F. Patient reports "mid drift pain" continues. Bowel movement during exam. Suprapubic catheter draining clear yellow urine. Objective Vital Signs/Intake & Output: Vital Signs 08/08/18 10:45 08/08/18 12:07 08/08/18 13:23 Temperature 99 F 100.7 F H 100.1 F H Pulse Rate 93 H Respiratory Rate 18 Blood Pressure 126/58 L Pulse Oximetry 94 L 08/08/18 15:20 08/08/18 20:00 08/09/18 00:00 Temperature 97.8 F 99.1 F 102.1 F H Pulse Rate 70 83 91 H Respiratory Rate 18 20 18 Blood Pressure 116/66 135/73 118/58 L Pulse Oximetry 95 98 94 L 08/09/18 04:00 08/09/18 08:45 Temperature 99.0 F 98.4 F Pulse Rate 73 76 Respiratory Rate 18 20 Blood Pressure 94/50 L 123/65 Pulse Oximetry 96 98 Intake & Output 08/08/18 08/09/18 08/09/18 18:59 06:59 18:59 Intake Total 850 / 850 150 / 150 Output Total 700 / 700 0 / 0 Balance 150 / 150 150 / 150 Weight 81 kg Intake: IV 200 / 200 150 / 150 Levaquin 500 mg Premix Inj 500 100 / 100 mg In 100 ml @ 100 mls/hr IV. SIG Q48H [facility] Rx#:[id number] Merrem Inj 1,000 MG In NS Inj 100 / 100 100 ML @ 200 mls/hr IV.SIG Q12H [facility] Rx#:[id number] Zosyn 2.25 GM Premix 50 ML @ 150 / 150 100 mls/hr IV.SIG Q6H [facility] Rx#: [id number] Oral 650 / 650 Output: Urine Amount (Catheter) 700 / 700 0 / 0 Suprapubic 700 / 700 0 / 0 Other: # Voids 4 Date of Last Bowel Movement 08/08/18 08/08/18 # Bowel Movements 1 Result Diagrams: 08/08/18 08:54 08/09/18 04:18 Laboratory Results: Laboratory Results - last 24 hr 08/06/18 08/08/18 08/08/18 04:56 08:54 08:54 WBC 7.9 RBC 2.67 L Hgb 8.4 L Hct 24.3 L MCV 90.7 MCH 31.4 MCHC 34.6 RDW 15.5 Plt Count 326 MPV 6.8 L Prelim Diff (Auto) Slide review pending Neut % (Auto) 76.4 H Lymph % (Auto) 10.5 [place] % (Auto) 10.5 H Eos % (Auto) 2.3 Baso % (Auto) 0.3 Neut # (Auto) 6.0 Lymph # (Auto) 0.8 L [place] # (Auto) 0.8 Eos # (Auto) 0.2 Baso # (Auto) 0.0 WBC Differential . Diff Scan Auto diff confirmed Differential Comment . Sodium 140 Potassium 3.6 Chloride 104 Carbon Dioxide 27.3 Anion Gap 9 BUN 25 H Creatinine 1.86 H Estimated GFR 36 L Random Glucose 109 H Calcium 7.2 L* Prot Corrected Calcium 7.8 L Phosphorus Total Bilirubin 0.4 AST 27 ALT 13 Alkaline Phosphatase 77 Total Protein 6.0 L D Albumin 1.7 L CMV Qnt PCR IU/mL Undetected 08/09/18 04:18 WBC RBC Hgb Hct MCV MCH MCHC RDW Plt Count MPV Prelim Diff (Auto) Neut % (Auto) Lymph % (Auto) [place] % (Auto) Eos % (Auto) Baso % (Auto) Neut # (Auto) Lymph # (Auto) [place] # (Auto) Eos # (Auto) Baso # (Auto) WBC Differential Diff Scan Differential Comment Sodium 138 Potassium 3.2 L Chloride 104 Carbon Dioxide 26.6 Anion Gap 7 BUN 26 H Creatinine 2.01 H Estimated GFR 33 L Random Glucose 90 Calcium 7.1 L* Prot Corrected Calcium Phosphorus 2.6 Total Bilirubin AST ALT Alkaline Phosphatase Total Protein Albumin 1.7 L CMV Qnt PCR IU/mL Culture Results: Microbiology 08/05/18 10:41 Aerobic Blood Culture - Preliminary Blood - Peripheral No growth in 3 days Anaerobic Blood Culture - Preliminary No growth in 3 days 08/05/18 08:30 Aerobic Blood Culture - Preliminary Blood - Peripheral No growth in 3 days Anaerobic Blood Culture - Preliminary No growth in 3 days 08/02/18 00:55 Aerobic Blood Culture - Final Blood - Peripheral No growth in 5 days Anaerobic Blood Culture - Final No growth in 5 days 08/02/18 01:00 Aerobic Blood Culture - Final Blood - Peripheral No growth in 5 days Anaerobic Blood Culture - Final No growth in 5 days 08/05/18 08:30 Urine Culture - Final Clean Catch Urine No growth in 48 hours Medications: Active Medications Generic Name Dose Route Start Last Admin Trade Name Freq PRN Reason Stop Dose Admin Acetaminophen 650 mg 07/22/18 13:55 08/08/18 23:56 Tylenol PO 650 mg Q4H PRN Administration fever Acetaminophen 650 mg 07/29/18 08:29 08/01/18 20:35 Tylenol PO 650 mg Q4H PRN Administration SEE LABEL COMMENTS Belladonna Alkaloids/Opium 60 mg 08/02/18 15:30 08/06/18 13:53 B & O Supp RECTAL 60 mg Q6HR PRN Administration BLADDER SPASM Bupropion HCl 150 mg 07/22/18 14:00 08/09/18 08:34 Wellbutrin Xl PO 150 mg DAILY [facility] Administration Sodium Chloride 3,000 ml/ 0 ml 07/29/18 23:03 08/06/18 13:28 Aminocaproic Acid 3,000 mg IRRIGATION 3,000 irrig.soln Q24H PRN Administration TO KEEP URINE CLEAR Diazepam 5 mg 07/22/18 13:57 08/04/18 23:23 Valium PO 5 mg DAILY PRN Administration Anxiety Docusate Sodium 100 mg 07/25/18 15:45 08/09/18 08:34 Colace PO 100 mg TID [facility] Administration Folic Acid 1 mg 07/24/18 12:00 08/09/18 08:34 Folic Acid PO 1 mg DAILY [facility] Administration Gabapentin 300 mg 07/23/18 21:00 08/09/18 08:34 Neurontin PO 300 mg BID [facility] Administration Hydrocortisone Acetate 1 applicatio 08/06/18 18:00 08/09/18 08:58 Anusol-Hc RECTAL 1 applicatio TID [facility] Administration Hydromorphone HCl 0.5 mg 07/26/18 19:30 08/08/18 21:58 Dilaudid Pf Inj IV.PUSH 0.5 mg Q4H PRN Administration BREAKTHROUGH PAIN Piperacillin/Tazobactam/Dextrose 50 mls @ 100 mls/hr 08/08/18 18:00 08/09/18 06:05 Zosyn 2.25 Gm Premix IV.SIG Infused Q6H [facility] Infusion Lactulose 30 ml 08/07/18 09:00 08/09/18 08:35 Lactulose Liq PO 30 ml BID [facility] Administration Latanoprost 1 drop 07/22/18 21:00 08/08/18 20:25 Xalatan 0.005% Opth Drops EACH EYE 1 drop HS [facility] Administration Lidocaine HCl 1 applicatio 08/05/18 17:15 08/05/18 20:46 Xylocaine 5% Oint TOPICAL 1 applicatio Q8H PRN Administration Acute Pain Lidocaine HCl 1 patch 08/06/18 15:00 08/09/18 08:35 Lidoderm 5% Patch.12 Hr T-DERMAL 1 patch DAILY [facility] Administration Oxycodone HCl 5 mg 07/22/18 14:46 08/09/18 05:15 Roxicodone PO 5 mg Q4H PRN Administration breakthrough pain Oxycodone HCl 20 mg 08/01/18 20:00 08/09/18 08:34 Oxycontin Cr PO 20 mg Q12H [facility] Administration Patch Removal 1 each 08/06/18 21:00 08/08/18 21:59 Remove Old Patch T-DERMAL 1 each HS [facility] Administration Tenofovir Disoproxil Fumarate 300 mg 07/24/18 09:00 08/09/18 08:34 Viread PO 300 mg EVERY OTHER DAY [facility] Administration Tolterodine Tartrate 4 mg 07/24/18 13:00 08/09/18 08:34 Detrol La PO 4 mg DAILY [facility] Administration Vitamin D 2,000 unit 07/25/18 09:00 08/09/18 08:34 Vitamin D3 PO 2,000 unit DAILY [facility] Administration Objective Remarks: GENERAL: Older male patient, lying in bed in no acute distress.. SKIN: Warm and dry. Suprapubic catheter dressing dry/intact. HEAD: Normocephalic. EYES: No scleral icterus. No injection or drainage. NECK: Supple, trachea midline. No JVD or lymphadenopathy. CARDIOVASCULAR: Regular rate and rhythm without murmurs. RESPIRATORY: Breath sounds clear, equal bilaterally. No accessory muscle use. GASTROINTESTINAL: Abdomen soft, non-tender, nondistended. Suprapubic catheter in place. EXTREMITIES: No cyanosis, or edema. MUSCULOSKELETAL: Generalized weakness NEUROLOGICAL: No obvious focal deficit. Awake, alert, and oriented x3. PSYCHIATRIC: Appropriate mood and affect; insight and judgment normal. Assessment/Plan - Plan Mr. Queen Is a 73-year-old man with a diagnosis of metastatic prostate carcinoma , he has had an excellent response to combination therapy consisting of leuprolide and Xtandi. His PSA levels have been less than 0.1 ng/dL over the past several months. He has extensive metastatic disease burden involving his axial skeleton especially his pelvis. Most recent PET CT scan revealed most of his previously active metastatic disease to be dormant, he however had intense hypermetabolic activity localized to the prostate and to the bladder. In late June he underwent cystoscopy for workup of hematuria with his former urologist Dr. Parmar, no obvious cause for hematuria was identified. He is now in the hospital with fevers, hematuria and pelvic pain. Clinically he has suspected prostatitis and is on broad-spectrum antibiotics with Zosyn and levofloxacin. Urine cultures and blood cultures are negative thus far other than forced staph epidermidis. CT scan of the abdomen/pelvis revealed no obvious cause for the hematuria. Recommendations: 1. Febrile illness: T-max 102.1 F, CMV, undetected. Urine and blood cultures remain negative. Infectious disease is following, patient currently on Zosyn. 2. Hematuria: Resolved. Radiation to prostate started on 08/07. Suprapubic catheter draining clear yellow urine. 3. Pain control, continue long and short acting opioids. Monitor for oversedation. Continue Anusol-Hc for rectal pain. 4. Metastatic prostate carcinoma, PSA less than 0.1; plans to resume Xtandi upon discharge from the hospital. 5. CBC pending today.
[2018-08-09 11:05] LABS: Baso % (Auto) 0.3 % (0.0-2.0); Eos # (Auto) 0.1 th/mm3 (0.0-0.4); Eos % (Auto) 1.7 % (0.0-4.0); Hematocrit 23.4 % (39.0-51.0); Lymph # (Auto) 0.4 th/mm3 (1.0-4.8); Lymph % (Auto) 5.8 % (9.0-44.0); Mean Corpuscular HGB Conc 34.3 % (32.0-36.0); Mean Corpuscular Hemoglobin 31.3 pg (27.0-34.0); Mean Corpuscular Volume 91.2 fL (80.0-100.0); Mean Platelet Volume 6.5 fL (7.0-11.0); Mono # (Auto) 0.9 th/mm3 (0.0-0.9); Mono % (Auto) 12.2 % (0.0-8.0); Platelet Count 318 th/mm3 (150-450); Red Blood Count 2.57 mil/mm3 (4.50-5.90); Red Cell Distribution Width 15.2 % (11.6-17.2); White Blood Count 7.5 th/mm3 (4.0-11.0)
--- NOTE | 2018-08-09 14:25 | P.PN ---
Subjective Interval history: Nursing reports having some clotting issues with the suprapubic catheter last night which she attributes to a lack of flushing by the other nurses. Patient himself has no new complaints. Still has some rectal pain. Had a fever unfortunately 102 this morning despite CMV PCR returning as "undetected.". Is open to getting his sigmoidoscopy done. Physical Exam Vital signs: Vital Signs 08/08/18 15:20 08/08/18 20:00 08/09/18 00:00 Temperature 97.8 F 99.1 F 102.1 F H Pulse Rate 70 83 91 H Respiratory Rate 18 20 18 Blood Pressure 116/66 135/73 118/58 L Pulse Oximetry 95 98 94 L 08/09/18 04:00 08/09/18 08:45 08/09/18 13:01 Temperature 99.0 F 98.4 F 98.2 F Pulse Rate 73 76 76 Respiratory Rate 18 20 16 Blood Pressure 94/50 L 123/65 116/65 Pulse Oximetry 96 98 96 Intake & Output 08/08/18 08/09/18 08/09/18 18:59 06:59 18:59 Intake Total 850 / 850 150 / 150 Output Total 700 / 700 0 / 0 Balance 150 / 150 150 / 150 Weight 81 kg Intake: IV 200 / 200 150 / 150 Levaquin 500 mg Premix Inj 500 100 / 100 mg In 100 ml @ 100 mls/hr IV. SIG Q48H [facility] Rx#:[id number] Merrem Inj 1,000 MG In NS Inj 100 / 100 100 ML @ 200 mls/hr IV.SIG Q12H [facility] Rx#:[id number] Zosyn 2.25 GM Premix 50 ML @ 150 / 150 100 mls/hr IV.SIG Q6H [facility] Rx#: [id number] Oral 650 / 650 Output: Urine Amount (Catheter) 700 / 700 0 / 0 Suprapubic 700 / 700 0 / 0 Other: # Voids 4 Date of Last Bowel Movement 08/08/18 08/08/18 # Bowel Movements 1 Narrative: Suprapubic catheter in place Clear lungs bilaterally, unlabored breathing Sitting up in wheelchair, heading over to radiation - Urinary Catheter Management Indwelling Urethral Catheter Cath placed during this visit: yes, but has since been removed by the nurse Reason for continuing: Decision to DC catheter Insertion date: 08/05/18 Insertion time: 18:00 Removal date: 08/07/18 Removal time: 08:30 Suprapubic Cath placed during this visit: yes Reason for continuing: Gross Hematuria Insertion date: 08/03/18 3-way Urethral Cath placed during this visit: yes Reason for continuing: Gross Hematuria Insertion date: 08/03/18 Results - Labs CBC & Chem 7: 08/09/18 10:42 08/09/18 04:18 Laboratory Results - last 24 hr 08/06/18 08/09/18 08/09/18 04:56 04:18 10:42 WBC 7.5 RBC 2.57 L Hgb 8.0 L Hct 23.4 L MCV 91.2 MCH 31.3 MCHC 34.3 RDW 15.2 Plt Count 318 MPV 6.5 L Neut % (Auto) 80.0 H Lymph % (Auto) 5.8 L [place] % (Auto) 12.2 H Eos % (Auto) 1.7 Baso % (Auto) 0.3 Neut # (Auto) 6.0 Lymph # (Auto) 0.4 L [place] # (Auto) 0.9 Eos # (Auto) 0.1 Baso # (Auto) 0.0 WBC Differential . Differential Comment Auto diff final Sodium 138 Potassium 3.2 L Chloride 104 Carbon Dioxide 26.6 Anion Gap 7 BUN 26 H Creatinine 2.01 H Estimated GFR 33 L Random Glucose 90 Calcium 7.1 L* Phosphorus 2.6 Albumin 1.7 L CMV Qnt PCR IU/mL Undetected Microbiology 08/05/18 10:41 Blood - Peripheral Aerobic Blood Culture - Preliminary No growth in 4 days 08/05/18 10:41 Blood - Peripheral Anaerobic Blood Culture - Preliminary No growth in 4 days 08/05/18 08:30 Blood - Peripheral Aerobic Blood Culture - Preliminary No growth in 4 days 08/05/18 08:30 Blood - Peripheral Anaerobic Blood Culture - Preliminary No growth in 4 days - Procedures 08/03/2018 Cystoscopy with placement of suprapubic tube, cystogram 07/29/2018 Cystoscopy with fulguration of prostate bleeding Assessment and Plan - Assessment (1) Acute UTI Code(s): N39.0 - Urinary tract infection, site not specified Status: Acute (2) Prostate cancer metastatic to bone Code(s): C61 - Malignant neoplasm of prostate; C79.51 - Secondary malignant neoplasm of bone Status: Acute - Plan Mr. Queen is a pleasant 73-year-old male with a history of metastatic prostate carcinoma who was admitted to the hospital due to fever, hematuria and pelvic pain. Infectious disease as well as oncology and urology have been following patient. Patient is currently on levofloxacin and meropenem. His hemodynamic status is stable but is still spiking low-grade fevers. Recurrent fevers -Thought to be due to sepsis but at this point being pursued as a fever of unknown origin as the patient's clinical status otherwise from his acute prostatitis is significantly improved. CMV PCR is negative. Thus ID is on board with getting a sigmoidoscopy at the least for the patient's rectal pain w / fevers. Acute prostatitis -Continue levofloxacin and meropenem per infectious disease -Blood cx negative. Urine cx from 07/22/2018 showed Staph Epi. -Another fever last night but to a lower extent, blood cultures are negative again from 08/05 Rectal pain -Possible anal fissure versus hemorrhoids, GI recommendations sigmoidoscopy with patient is deferring this at the time. Anal gel for pain symptoms. Improving overall with foam application, Back pain -Lidoderm patch Persistent hematuria Bilateral hydronephrosis on ultrasound left greater than right -Radiation oncology is planning treatments. -Suprapubic catheter placement on 08/03/2018. -Successful voiding trial today after urology has removed catheter Acute post-hemorrhagic anemia due to Genitourinary tract bleeding. -Two units of PRBCs on 08/02/2018. Metastatic prostate carcinoma -Oncology is following. Patient is has had good response to leuprolide and Enzalutamide (Xtandi). -Continue oxycodone for pain control. Continue long-acting OxyContin 20 mg twice daily. Hypocalcemia Acute kidney injury on Chronic kidney disease -Nephrology is following. Creatinine hovering around 2.2-2.3. -Stabilized Full code. Ambulation. Pharmacological DVT prophylaxis contraindicated at this point. Discharge Planning: DC when fevers have stopped or when ID clears pt. Pt wants to return home, not go to SNF. Considering hospice, order placed for consult.
--- NOTE | 2018-08-09 14:34 | P.PNGI ---
Subjective Interval history: Pt was seen by our service earlier in this hospitalization for rectal pain, declined GI procedures at that time. Pt continues to have rectal pain and is now willing to undergo flex sigmoidoscopy. Pt does not think that he could tolerate drinking the prep for full colonoscopy and does not wish to pursue that at this time. States had one done less than five years ago by Dr. Brock which was normal. Also discussed EGD due to rule out GI source of anemia and pt is not interested in this at this time. Of note, pt also being treated for hematuria. According to RN he has been having diarrhea today after receiving Lactulose for tremors. Prior to that has been having normal BMs. Was having to take Amitiza at home for constipation secondary to opioid use. Denies any straining with BMs. Reports some nausea today, he thinks from the Lactulose, denies emesis. <Jossie Whatley - Last Filed: 08/09/18 14:27> Interval history: Seen and examined with AUDIO VISUAL COORDINATOR, reconsulted for fevers and rectal pain. Agreeable to sigmoidoscopy only. Planned for tomorrow. Thank you The exam, history, and the medical decision-making described in the above note were completed with the assistance of the mid-level provider. I reviewed and agree with the findings presented. I attest that I had a [id number] encounter with the patient on the same day, and personally performed and documented my assessment and findings in the medical record. <Judith Austin - Last Filed: 08/09/18 16:05> Physical Exam Vital signs: Vital Signs 08/08/18 15:20 08/08/18 20:00 08/09/18 00:00 Temperature 97.8 F 99.1 F 102.1 F H Pulse Rate 70 83 91 H Respiratory Rate 18 20 18 Blood Pressure 116/66 135/73 118/58 L Pulse Oximetry 95 98 94 L 08/09/18 04:00 08/09/18 08:45 08/09/18 13:01 Temperature 99.0 F 98.4 F 98.2 F Pulse Rate 73 76 76 Respiratory Rate 18 20 16 Blood Pressure 94/50 L 123/65 116/65 Pulse Oximetry 96 98 96 Intake & Output 08/08/18 08/09/18 08/09/18 18:59 06:59 18:59 Intake Total 850 / 850 150 / 150 Output Total 700 / 700 0 / 0 Balance 150 / 150 150 / 150 Weight 81 kg Intake: IV 200 / 200 150 / 150 Levaquin 500 mg Premix Inj 500 100 / 100 mg In 100 ml @ 100 mls/hr IV. SIG Q48H [facility] Rx#:[id number] Merrem Inj 1,000 MG In NS Inj 100 / 100 100 ML @ 200 mls/hr IV.SIG Q12H [facility] Rx#:[id number] Zosyn 2.25 GM Premix 50 ML @ 150 / 150 100 mls/hr IV.SIG Q6H [facility] Rx#: [id number] Oral 650 / 650 Output: Urine Amount (Catheter) 700 / 700 0 / 0 Suprapubic 700 / 700 0 / 0 Other: # Voids 4 Date of Last Bowel Movement 08/08/18 08/08/18 # Bowel Movements 1 - Constitutional no acute distress - Routine HEENT Exam Head: Present: normocephalic, atraumatic - Routine Respiratory Exam Absent: accessory muscle use - Routine Abdominal Exam Present: soft, normoactive bowel sounds. Absent: tenderness, distended - Routine Exam Comments: Suprapubic catheter - Routine Skin Exam Present: dry, warm - Routine Neurological Exam Present: alert, oriented X3 - Urinary Catheter Management Indwelling Urethral Catheter Cath placed during this visit: yes, but has since been removed by the nurse Reason for continuing: Decision to DC catheter Insertion date: 08/05/18 Insertion time: 18:00 Removal date: 08/07/18 Removal time: 08:30 Suprapubic Cath placed during this visit: yes Reason for continuing: Gross Hematuria Insertion date: 08/03/18 3-way Urethral Cath placed during this visit: yes Reason for continuing: Gross Hematuria Insertion date: 08/03/18 <Jossie Whatley - Last Filed: 08/09/18 14:27> Vital signs: Vital Signs 08/08/18 20:00 08/09/18 00:00 08/09/18 04:00 Temperature 99.1 F 102.1 F H 99.0 F Pulse Rate 83 91 H 73 Respiratory Rate 20 18 18 Blood Pressure 135/73 118/58 L 94/50 L Pulse Oximetry 98 94 L 96 08/09/18 08:45 08/09/18 13:01 Temperature 98.4 F 98.2 F Pulse Rate 76 76 Respiratory Rate 20 16 Blood Pressure 123/65 116/65 Pulse Oximetry 98 96 Intake & Output 08/08/18 08/09/18 08/09/18 18:59 06:59 18:59 Intake Total 850 / 850 150 / 150 Output Total 700 / 700 0 / 0 Balance 150 / 150 150 / 150 Weight 81 kg Intake: IV 200 / 200 150 / 150 Levaquin 500 mg Premix Inj 500 100 / 100 mg In 100 ml @ 100 mls/hr IV. SIG Q48H [facility] Rx#:[id number] Merrem Inj 1,000 MG In NS Inj 100 / 100 100 ML @ 200 mls/hr IV.SIG Q12H [facility] Rx#:[id number] Zosyn 2.25 GM Premix 50 ML @ 150 / 150 100 mls/hr IV.SIG Q6H [facility] Rx#: [id number] Oral 650 / 650 Output: Urine Amount (Catheter) 700 / 700 0 / 0 Suprapubic 700 / 700 0 / 0 Other: # Voids 4 Date of Last Bowel Movement 08/08/18 08/08/18 # Bowel Movements 1 - Urinary Catheter Management Indwelling Urethral Catheter Cath placed during this visit: no Suprapubic Cath placed during this visit: no 3-way Urethral Cath placed during this visit: no <Judith Austin - Last Filed: 08/09/18 16:05> Results - Labs CBC & Chem 7: 08/09/18 10:42 08/09/18 04:18 Laboratory Results - last 24 hr 08/06/18 08/09/18 08/09/18 04:56 04:18 10:42 WBC 7.5 RBC 2.57 L Hgb 8.0 L Hct 23.4 L MCV 91.2 MCH 31.3 MCHC 34.3 RDW 15.2 Plt Count 318 MPV 6.5 L Neut % (Auto) 80.0 H Lymph % (Auto) 5.8 L [place] % (Auto) 12.2 H Eos % (Auto) 1.7 Baso % (Auto) 0.3 Neut # (Auto) 6.0 Lymph # (Auto) 0.4 L [place] # (Auto) 0.9 Eos # (Auto) 0.1 Baso # (Auto) 0.0 WBC Differential . Differential Comment Auto diff final Sodium 138 Potassium 3.2 L Chloride 104 Carbon Dioxide 26.6 Anion Gap 7 BUN 26 H Creatinine 2.01 H Estimated GFR 33 L Random Glucose 90 Calcium 7.1 L* Phosphorus 2.6 Albumin 1.7 L CMV Qnt PCR IU/mL Undetected Microbiology 08/05/18 10:41 Blood - Peripheral Aerobic Blood Culture - Preliminary No growth in 4 days 08/05/18 10:41 Blood - Peripheral Anaerobic Blood Culture - Preliminary No growth in 4 days 08/05/18 08:30 Blood - Peripheral Aerobic Blood Culture - Preliminary No growth in 4 days 08/05/18 08:30 Blood - Peripheral Anaerobic Blood Culture - Preliminary No growth in 4 days - Procedures 08/03/2018 Cystoscopy with placement of suprapubic tube, cystogram 07/29/2018 Cystoscopy with fulguration of prostate bleeding <Jossie Whatley - Last Filed: 08/09/18 14:27> - Labs CBC & Chem 7: 08/09/18 10:42 08/09/18 04:18 Laboratory Results - last 24 hr 08/06/18 08/09/18 08/09/18 04:56 04:18 10:42 WBC 7.5 RBC 2.57 L Hgb 8.0 L Hct 23.4 L MCV 91.2 MCH 31.3 MCHC 34.3 RDW 15.2 Plt Count 318 MPV 6.5 L Neut % (Auto) 80.0 H Lymph % (Auto) 5.8 L [place] % (Auto) 12.2 H Eos % (Auto) 1.7 Baso % (Auto) 0.3 Neut # (Auto) 6.0 Lymph # (Auto) 0.4 L [place] # (Auto) 0.9 Eos # (Auto) 0.1 Baso # (Auto) 0.0 WBC Differential . Differential Comment Auto diff final Sodium 138 Potassium 3.2 L Chloride 104 Carbon Dioxide 26.6 Anion Gap 7 BUN 26 H Creatinine 2.01 H Estimated GFR 33 L Random Glucose 90 Calcium 7.1 L* Phosphorus 2.6 Albumin 1.7 L CMV Qnt PCR IU/mL Undetected Microbiology 08/05/18 10:41 Blood - Peripheral Aerobic Blood Culture - Preliminary No growth in 4 days 08/05/18 10:41 Blood - Peripheral Anaerobic Blood Culture - Preliminary No growth in 4 days 08/05/18 08:30 Blood - Peripheral Aerobic Blood Culture - Preliminary No growth in 4 days 08/05/18 08:30 Blood - Peripheral Anaerobic Blood Culture - Preliminary No growth in 4 days <Judith Austin - Last Filed: 08/09/18 16:05> Assessment and Plan - Plan Assessment: - Rectal pain- for multiple months, states worse when he sits and stands up- located in his rectum as well as all over his buttocks. Denies any hematochezia or melena. Thinks he has hemorrhoids. Denies any straining with BMs, states has been having normal BMs, was taking Amitiza at home for opioid induced constipation. Having diarrhea today after receiving Lactulose for tremors. Agreeable to have flex sigmoidoscopy, but does not want colonoscopy. Also, discussed EGD and pt does not wish for this at this time. Last colonoscopy < [address] Brock, states normal exam. 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 Austin and this note is written on his behalf <Jossie Whatley - Last Filed: 08/09/18 14:27>
--- NOTE | 2018-08-09 15:04 | P.PNURO ---
Subjective Patient symptoms today: Pt seen and examined. Urine now clear after SP tube irrigated by nurse this AM. Objective Vital Signs: Vital Signs 08/08/18 15:20 08/08/18 20:00 08/09/18 00:00 Temperature 97.8 F 99.1 F 102.1 F H Pulse Rate 70 83 91 H Respiratory Rate 18 20 18 Blood Pressure 116/66 135/73 118/58 L Pulse Oximetry 95 98 94 L 08/09/18 04:00 08/09/18 08:45 08/09/18 13:01 Temperature 99.0 F 98.4 F 98.2 F Pulse Rate 73 76 76 Respiratory Rate 18 20 16 Blood Pressure 94/50 L 123/65 116/65 Pulse Oximetry 96 98 96 Intake & Output 08/08/18 08/09/18 08/09/18 18:59 06:59 18:59 Intake Total 850 / 850 150 / 150 Output Total 700 / 700 0 / 0 Balance 150 / 150 150 / 150 Weight 81 kg Intake: IV 200 / 200 150 / 150 Levaquin 500 mg Premix Inj 500 100 / 100 mg In 100 ml @ 100 mls/hr IV. SIG Q48H [facility] Rx#:[id number] Merrem Inj 1,000 MG In NS Inj 100 / 100 100 ML @ 200 mls/hr IV.SIG Q12H [facility] Rx#:[id number] Zosyn 2.25 GM Premix 50 ML @ 150 / 150 100 mls/hr IV.SIG Q6H [facility] Rx#: [id number] Oral 650 / 650 Output: Urine Amount (Catheter) 700 / 700 0 / 0 Suprapubic 700 / 700 0 / 0 Other: # Voids 4 Date of Last Bowel Movement 08/08/18 08/08/18 # Bowel Movements 1 Result Diagrams: 08/09/18 10:42 08/09/18 04:18 Procedures: Suprapubic catheter gently repositioned after balloon deflated. Balloon subsequently reinflated with 10 cc sterile water. Catheter then secured to lower abdomen with fixation device. Three-way Palacios catheter then replaced with a 20 [place] two-way [place] catheter and subsequently irrigated with evacuation of a few small clots. CBI then re- implemented with inflow via the [place] and outflow via the suprapubic catheter and titrated to light pink return. Medications and IVs: Active Medications Generic Name Dose Route Start Last Admin Trade Name Freq PRN Reason Stop Dose Admin Acetaminophen 650 mg 07/22/18 13:55 08/08/18 23:56 Tylenol PO 650 mg Q4H PRN Administration fever Acetaminophen 650 mg 07/29/18 08:29 08/01/18 20:35 Tylenol PO 650 mg Q4H PRN Administration SEE LABEL COMMENTS Belladonna Alkaloids/Opium 60 mg 08/02/18 15:30 08/06/18 13:53 B & O Supp RECTAL 60 mg Q6HR PRN Administration BLADDER SPASM Bupropion HCl 150 mg 07/22/18 14:00 08/09/18 08:34 Wellbutrin Xl PO 150 mg DAILY [facility] Administration Sodium Chloride 3,000 ml/ 0 ml 07/29/18 23:03 08/06/18 13:28 Aminocaproic Acid 3,000 mg IRRIGATION 3,000 irrig.soln Q24H PRN Administration TO KEEP URINE CLEAR Diazepam 5 mg 07/22/18 13:57 08/04/18 23:23 Valium PO 5 mg DAILY PRN Administration Anxiety Docusate Sodium 100 mg 07/25/18 15:45 08/09/18 08:34 Colace PO 100 mg TID [facility] Administration Folic Acid 1 mg 07/24/18 12:00 08/09/18 08:34 Folic Acid PO 1 mg DAILY [facility] Administration Gabapentin 300 mg 07/23/18 21:00 08/09/18 08:34 Neurontin PO 300 mg BID [facility] Administration Hydrocortisone Acetate 25 mg 08/05/18 17:13 Hemorrhoidal Hc Supp RECTAL TID PRN Acute Pain Hydrocortisone Acetate 1 applicatio 08/06/18 18:00 08/09/18 12:52 Anusol-Hc RECTAL Not Given TID [facility] Hydromorphone HCl 0.5 mg 07/26/18 19:30 08/08/18 21:58 Dilaudid Pf Inj IV.PUSH 0.5 mg Q4H PRN Administration BREAKTHROUGH PAIN Piperacillin/Tazobactam/Dextrose 50 mls @ 100 mls/hr 08/08/18 18:00 08/09/18 12:46 Zosyn 2.25 Gm Premix IV.SIG 100 mls/hr Q6H [facility] Administration Lactulose 30 ml 08/07/18 09:00 08/09/18 08:35 Lactulose Liq PO 30 ml BID [facility] Administration Latanoprost 1 drop 07/22/18 21:00 08/08/18 20:25 Xalatan 0.005% Opth Drops EACH EYE 1 drop HS [facility] Administration Lidocaine HCl 1 applicatio 08/05/18 17:15 08/05/18 20:46 Xylocaine 5% Oint TOPICAL 1 applicatio Q8H PRN Administration Acute Pain Lidocaine HCl 1 patch 08/06/18 15:00 08/09/18 08:35 Lidoderm 5% Patch.12 Hr T-DERMAL 1 patch DAILY [facility] Administration Oxycodone HCl 5 mg 07/22/18 14:46 08/09/18 12:46 Roxicodone PO 5 mg Q4H PRN Administration breakthrough pain Oxycodone HCl 20 mg 08/01/18 20:00 08/09/18 08:34 Oxycontin Cr PO 20 mg Q12H [facility] Administration Patch Removal 1 each 08/06/18 21:00 08/08/18 21:59 Remove Old Patch T-DERMAL 1 each HS [facility] Administration Pom: (Lubiprostone [ 0 each 07/22/18 21:00 Amitiza] 24 Mcg) PO BID [facility] Tenofovir Disoproxil Fumarate 300 mg 07/24/18 09:00 08/09/18 08:34 Viread PO 300 mg EVERY OTHER DAY [facility] Administration Tolterodine Tartrate 4 mg 07/24/18 13:00 08/09/18 08:34 Detrol La PO 4 mg DAILY [facility] Administration Vitamin D 2,000 unit 07/25/18 09:00 08/09/18 08:34 Vitamin D3 PO 2,000 unit DAILY [facility] Administration Objective Remarks: IVONNE RRR Clear lungs Palacios is in place, urine is light pink 07/27 Abd:soft,nt,nd Palacios on CBI; now with pink urine; clots cleared. 07/28 Abd:soft,nt, nd Palacios with clear urine. 07/29 Abd:soft,nt,nd Palacios with gross hematuria with clots. 07/30 Abd:soft,nt,nd Palacios; now clear. 07/31 Abd:soft,nt,nd Palacios; now clear. 08/01 Abd:soft,nt,nd Palacios; now clear. 08/02 Abd:soft,nt,nd Palacios: clear. 08/04 Abd:soft,nt,nd Palacios: clear. 08/05 Abdomen soft, with irrigant leakage noted around suprapubic catheter Urine output medium red in color 08/07 Abd:soft,nt,nd Palacios removed at bedside. Urine clear. 08/08 Abd:soft,nt,nd SP tube clear 08/09 Abd:soft,nt,nd SP tube clear Assessment and Plan - Plan 73y.o M with other medical issues listed in HPI Urology consulted for hematuria, which is resolving now No additional recommendations, same as below - Continue care as per primary team - No acute intervention needed - Hematuria can be related to self cath and UTI as well as to previous radiation. - Continue current treatment, follow ID recommendations - Manual irrigation of the bladder may help to get rid of bladder clots/debris seen in the bladder on Sono. Do it BID - Pt to see his urologist after d/c for further management, may need cysto as outpt. 07/27/18 73 y.o male with metastatic CaP with gross hematuria 24F 3-way palacios in place; clots irrigated and CBI started Hold SQ Heparin; will order SCD's instead Will need cystoscopy at later date and may need HBO as outpt to help RX Radiation cystitis Will follow. 07/28 73 y.o male with metastatic CaP with gross hematuria 24F 3-way palacios in place; urine now clear Cysto as outpt. 07/29 73 y.o male with metastatic CaP with gross hematuria Will need cysto with fulguration of bleeding in OR today Continue NPO. 07/30 73 y.o male with metastatic CaP with gross hematuria Continue supportive measures/transfusion/Amicar CBI To d/w Radiation oncology tomorrow. D/W Dr. Gant 07/31 73 y.o male with metastatic CaP with gross hematuria Continue supportive measures/transfusion/Amicar CBI Possible XRT therapy for control of bleeding. 08/01 73 y.o male with metastatic CaP with gross hematuria Urine now clearing on Amicar CBI XRT to start soon For SP tube insertion on . 08/02 73 y.o male with metastatic CaP with gross hematuria Urine now clearing on Amicar CBI XRT to start soon For SP tube insertion tomorrow. 08/04 Stable s/p SP tube insertion Continue CBI over the weekend Hopeful void trial Tuesday AM if urine remains clear. 08/05 Ongoing hematuria with subsequent blockage of Palacios catheter secondary to clot formation. Suprapubic catheter repositioned and three-way Palacios catheter exchanged for a two-way 20 Georgian Palacios CBI reimplemented 08/06 CBI running well with resolution of the hematuria. We will continue with CBI at a slow rate and titrate up if necessary. 08/07 73 y.o male with metastatic prostate cancer with gross hematuria Palacios removed at bedside For XRT today. 08/08 73 y.o male with metastatic prostate cancer with gross hematuria Hematuria has resolved. Continue with XRT Fever-ID following. 08/09 73 y.o male with metastatic prostate cancer with gross hematuria Hematuria has resolved. Continue with XRT Irrigate SP tube prn
[2018-08-09] MEDS: HYDROmorphone PF Inj 2 MG/ML Vial IV.PUSH PRN (15:38)
[2018-08-09] MEDS ORDERED: HYDROmorphone PF Inj 2 MG/ML Vial IV.PUSH ONE (16:00)
[2018-08-09] MEDS: Acetaminophen 325 MG Tablet PO PRN ×2 (17:30→22:19)
[2018-08-09] MEDS: Latanoprost 0.005% Opth Drops 2.5 ML Bottle EACH EYE SCH (22:22)
[2018-08-10] MEDS: HYDROmorphone PF Inj 2 MG/ML Vial IV.PUSH PRN ×3 (00:22→14:42)
[2018-08-10] MEDS: Piperacil/Tazo 2.25 GM Premix 50 ML IV.SIG SCH ×2 (05:35→13:28)
[2018-08-10] MEDS: Folic Acid 1 MG Tablet PO SCH (08:42)
[2018-08-10] MEDS: Tolterodine Tartrate LA 4 MG Capsule PO SCH (08:42)
[2018-08-10] MEDS: Calcium Carbonate 500 MG Tablet PO SCH ×2 (08:42→20:13)
[2018-08-10] MEDS: oxyCODONE 10 MG Controlled Release Tablet PO SCH ×2 (08:42→20:14)
[2018-08-10] MEDS: Gabapentin 300 MG Capsule PO SCH ×2 (08:42→20:14)
--- NOTE | 2018-08-10 13:20 | P.PNID ---
Subjective Remarks: cont to have fever @ night, low grade and intermittent cont to have pain in rectum for flex sig today CMV undetectable Antibiotics: zosyn Past Medical History: Hep B Hypertension Kidney disease Prostate cancer with bone mets S/P hip surgery Allergies/Adverse Reactions: Allergies morphine Allergy (Severe, Verified 07/22/18 11:48) MORPHINE ALLERGY ADDED 12/19/07 @1500 - N/V Objective Vital Signs 08/09/18 16:00 08/09/18 17:30 08/09/18 20:00 Temperature 99.7 F H 102.5 F H 102.1 F H Pulse Rate 89 93 H Respiratory Rate 20 18 Blood Pressure 132/69 103/47 L Pulse Oximetry 91 L 94 L 08/10/18 00:00 08/10/18 04:00 08/10/18 08:06 Temperature 100 F H 98.9 F 97.6 F Pulse Rate 80 69 66 Respiratory Rate 15 15 20 Blood Pressure 100/47 L 114/53 L 108/55 L Pulse Oximetry 95 97 97 Intake & Output 08/09/18 08/10/18 08/10/18 18:59 06:59 18:59 Intake Total 50 / 50 590 / 590 Output Total 1300 / 1300 1450 / 1450 Balance -1250 / -1250 -860 / -860 Weight 82 kg Intake: IV 50 / 50 150 / 150 Zosyn 2.25 GM Premix 50 ML @ 50 / 50 150 / 150 100 mls/hr IV.SIG Q6H [facility] Rx#: [id number] Oral 440 / 440 Output: Urine 1450 / 1450 Urine Amount (Catheter) 1300 / 1300 Suprapubic 1300 / 1300 Other: Date of Last Bowel Movement 08/09/18 08/05/18 10:41 Blood - Peripheral Aerobic Blood Culture - Final No growth in 5 days 08/05/18 10:41 Blood - Peripheral Anaerobic Blood Culture - Final No growth in 5 days 08/05/18 08:30 Blood - Peripheral Aerobic Blood Culture - Final No growth in 5 days 08/05/18 08:30 Blood - Peripheral Anaerobic Blood Culture - Final No growth in 5 days 08/02/18 00:55 Blood - Peripheral Aerobic Blood Culture - Final No growth in 5 days 08/02/18 00:55 Blood - Peripheral Anaerobic Blood Culture - Final No growth in 5 days 08/02/18 01:00 Blood - Peripheral Aerobic Blood Culture - Final No growth in 5 days 08/02/18 01:00 Blood - Peripheral Anaerobic Blood Culture - Final No growth in 5 days Lab - Hematology Results 08/09/18 10:42 WBC 7.5 RBC 2.57 L Hgb 8.0 L Hct 23.4 L MCV 91.2 MCH 31.3 MCHC 34.3 RDW 15.2 Plt Count 318 MPV 6.5 L Neut % (Auto) 80.0 H Lymph % (Auto) 5.8 L Harvey % (Auto) 12.2 H Eos % (Auto) 1.7 Baso % (Auto) 0.3 Neut # (Auto) 6.0 Lymph # (Auto) 0.4 L Harvey # (Auto) 0.9 Eos # (Auto) 0.1 Baso # (Auto) 0.0 WBC Differential . Differential Comment Auto diff final Lab - Chemistry Results 08/09/18 04:18 Sodium 138 Potassium 3.2 L Chloride 104 Carbon Dioxide 26.6 Anion Gap 7 BUN 26 H Creatinine 2.01 H Estimated GFR 33 L Random Glucose 90 Calcium 7.1 L* Phosphorus 2.6 Albumin 1.7 L Imaging: ITS Impressions Chest X-Ray 07/22/18 11:00 CONCLUSION: The lungs are grossly clear. Sclerotic metastatic disease. Abdomen/Bladder Ultrasound 07/23/18 00:00 CONCLUSION: 1. Significant debris within the bladder likely blood. Mild bilateral hydronephrosis left greater than right. Abdomen/Pelvis CT 07/24/18 00:00 CONCLUSION: 1. Abnormal bladder with increased density consistent with blood products and/ or tumor. A Engel catheter is present with a small amount of air. 2. New mild to moderate bilateral hydronephrosis. Small bilateral pleural effusions right greater than left. 3. Extensive sclerotic metastatic disease with interval progression. Physical Exam: GENERAL: NAD awake and alert. OOB in chair SKIN: Warm and dry. No rash HEAD: Atraumatic. Normocephalic. EYES: Pupils equal and round. No scleral icterus. No injection or drainage. ENT: No nasal bleeding or discharge. Mucous membranes pink and moist. CARDIOVASCULAR: Regular rate and rhythm. RESPIRATORY: No accessory muscle use. Clear to auscultation. Breath sounds equal bilaterally. GASTROINTESTINAL: Abdomen soft, tender to palpation in lower quadrants w/o guarding or rebound SPC site with on going leaking around it lMUSCULOSKELETAL: Extremities without clubbing, cyanosis, No calf tenderness. +1 soft pitting edema NEUROLOGICAL: awake, alert No obvious cranial nerve deficits. Motor grossly within normal limits. Five out of 5 muscle strength in the arms and legs. Normal speech. PSYCHIATRIC: calm, cooperative Assessment and Plan - Plan Impression Metastatic prostate cancer FUO (6 weeks) Hematuria Probably UTI - Staph epi not a typical pathogen GENI - slighly better Persistent fever and rectal pain - proctitis? Recommendation if no proctitis will cont with zosyn Follow new C/S fu P blood clx, WBC and temps will treat is as FUO if flex sig negative dw Dr Ruben shen pt and his
[2018-08-10] MEDS: buPROPion 150 MG XL 24 HR Tablet PO SCH (13:27)
[2018-08-10] MEDS: Docusate Sodium 100 MG Capsule PO SCH ×3 (13:27→20:10)
[2018-08-10] MEDS: Lidocaine 5% Patch T-DERMAL SCH (13:27)
[2018-08-10] MEDS ORDERED: Lidocaine PF 1% Inj 5 ML Syringe OTHER ONE (13:28)
--- NOTE | 2018-08-10 13:32 | P.PNURO ---
Subjective Patient symptoms today: Pt seen and examined. Fever last night. Feeling better this AM. Objective Vital Signs: Vital Signs 08/09/18 16:00 08/09/18 17:30 08/09/18 20:00 Temperature 99.7 F H 102.5 F H 102.1 F H Pulse Rate 89 93 H Respiratory Rate 20 18 Blood Pressure 132/69 103/47 L Pulse Oximetry 91 L 94 L 08/10/18 00:00 08/10/18 04:00 08/10/18 08:06 Temperature 100 F H 98.9 F 97.6 F Pulse Rate 80 69 66 Respiratory Rate 15 15 20 Blood Pressure 100/47 L 114/53 L 108/55 L Pulse Oximetry 95 97 97 Intake & Output 08/09/18 08/10/18 08/10/18 18:59 06:59 18:59 Intake Total 50 / 50 590 / 590 Output Total 1300 / 1300 1450 / 1450 Balance -1250 / -1250 -860 / -860 Weight 82 kg Intake: IV 50 / 50 150 / 150 Zosyn 2.25 GM Premix 50 ML @ 50 / 50 150 / 150 100 mls/hr IV.SIG Q6H [facility] Rx#: [id number] Oral 440 / 440 Output: Urine 1450 / 1450 Urine Amount (Catheter) 1300 / 1300 Suprapubic 1300 / 1300 Other: Date of Last Bowel Movement 08/09/18 Result Diagrams: 08/09/18 10:42 08/09/18 04:18 Procedures: Suprapubic catheter gently repositioned after balloon deflated. Balloon subsequently reinflated with 10 cc sterile water. Catheter then secured to lower abdomen with fixation device. Three-way Palacios catheter then replaced with a 20 Japanese two-way Palacios catheter and subsequently irrigated with evacuation of a few small clots. CBI then re- implemented with inflow via the Palacios and outflow via the suprapubic catheter and titrated to light pink return. Medications and IVs: Active Medications Generic Name Dose Route Start Last Admin Trade Name Freq PRN Reason Stop Dose Admin Acetaminophen 650 mg 07/22/18 13:55 08/09/18 22:19 Tylenol PO 650 mg Q4H PRN Administration fever Acetaminophen 650 mg 07/29/18 08:29 08/01/18 20:35 Tylenol PO 650 mg Q4H PRN Administration SEE LABEL COMMENTS Belladonna Alkaloids/Opium 60 mg 08/02/18 15:30 08/06/18 13:53 B & O Supp RECTAL 60 mg Q6HR PRN Administration BLADDER SPASM Bupropion HCl 150 mg 07/22/18 14:00 08/10/18 13:27 Wellbutrin Xl PO 150 mg DAILY MILDRED Administration Sodium Chloride 3,000 ml/ 0 ml 07/29/18 23:03 08/06/18 13:28 Aminocaproic Acid 3,000 mg IRRIGATION 3,000 irrig.soln Q24H PRN Administration TO KEEP URINE CLEAR Diazepam 5 mg 07/22/18 13:57 08/04/18 23:23 Valium PO 5 mg DAILY PRN Administration Anxiety Docusate Sodium 100 mg 07/25/18 15:45 08/10/18 13:27 Colace PO Not Given TID MILDRED Folic Acid 1 mg 07/24/18 12:00 08/10/18 08:42 Folic Acid PO 1 mg DAILY MILDR[facility] Administration Gabapentin 300 mg 07/23/18 21:00 08/10/18 08:42 Neurontin PO 300 mg BID MILDRED Administration Hydrocortisone Acetate 25 mg 08/05/18 17:13 Hemorrhoidal Hc Supp RECTAL TID PRN Acute Pain Hydrocortisone Acetate 1 applicatio 08/06/18 18:00 08/10/18 13:26 Anusol-Hc RECTAL Not Given TID [facility] Hydromorphone HCl 0.5 mg 07/26/18 19:30 08/10/18 08:41 Dilaudid Pf Inj IV.PUSH 0.5 mg Q4H PRN Administration BREAKTHROUGH PAIN Piperacillin/Tazobactam/Dextrose 50 mls @ 100 mls/hr 08/08/18 18:00 08/10/18 13:28 Zosyn 2.25 Gm Premix IV.SIG Not Given Q6H [facility] Lactulose 30 ml 08/07/18 09:00 08/10/18 13:27 Lactulose Liq PO Not Given BID [facility] Latanoprost 1 drop 07/22/18 21:00 08/09/18 22:22 Xalatan 0.005% Opth Drops EACH EYE 1 drop HS [facility]DR[facility] Administration Lidocaine HCl 1 applicatio 08/05/18 17:15 08/05/18 20:46 Xylocaine 5% Oint TOPICAL 1 applicatio Q8H PRN Administration Acute Pain Lidocaine HCl 1 patch 08/06/18 15:00 08/10/18 13:27 Lidoderm 5% Patch.12 Hr T-DERMAL 1 patch DAILY [facility] Administration Oxycodone HCl 5 mg 07/22/18 14:46 08/10/18 05:36 Roxicodone PO 5 mg Q4H PRN Administration breakthrough pain Oxycodone HCl 20 mg 08/01/18 20:00 08/10/18 08:42 Oxycontin Cr PO 20 mg Q12H [facility] Administration Patch Removal 1 each 08/06/18 21:00 08/09/18 22:21 Remove Old Patch T-DERMAL 1 each HS [facility] Administration Pom: (Lubiprostone [ 0 each 07/22/18 21:00 Amitiza] 24 Mcg) PO BID [facility] Tenofovir Disoproxil Fumarate 300 mg 07/24/18 09:00 08/09/18 08:34 Viread PO 300 mg EVERY OTHER DAY [facility] Administration Tolterodine Tartrate 4 mg 07/24/18 13:00 08/10/18 08:42 Detrol La PO 4 mg DAILY [facility] Administration Vitamin D 2,000 unit 07/25/18 09:00 08/10/18 08:42 Vitamin D3 PO 2,000 unit DAILY [facility] Administration Objective Remarks: IVONNE RRR Clear lungs Palacios is in place, urine is light pink 07/27 Abd:soft,nt,nd Palacios on CBI; now with pink urine; clots cleared. 07/28 Abd:soft,nt, nd Palacios with clear urine. 07/29 Abd:soft,nt,nd Palacios with gross hematuria with clots. 07/30 Abd:soft,nt,nd Palacios; now clear. 07/31 Abd:soft,nt,nd Palacios; now clear. 08/01 Abd:soft,nt,nd Palacios; now clear. 08/02 Abd:soft,nt,nd Palacios: clear. 08/04 Abd:soft,nt,nd Palacios: clear. 08/05 Abdomen soft, with irrigant leakage noted around suprapubic catheter Urine output medium red in color 08/07 Abd:soft,nt,nd Palacios removed at bedside. Urine clear. 08/08 Abd:soft,nt,nd SP tube clear 08/09 Abd:soft,nt,nd SP tube clear 9/27 Abd:soft,nt,nd SP tube clear; urine leaking around tube site at times. Assessment and Plan - Plan 73y.o M with other medical issues listed in HPI Urology consulted for hematuria, which is resolving now No additional recommendations, same as below - Continue care as per primary team - No acute intervention needed - Hematuria can be related to self cath and UTI as well as to previous radiation. - Continue current treatment, follow ID recommendations - Manual irrigation of the bladder may help to get rid of bladder clots/debris seen in the bladder on Sono. Do it BID - Pt to see his urologist after d/c for further management, may need cysto as outpt. 07/27/18 73 y.o male with metastatic CaP with gross hematuria 24F 3-way palacios in place; clots irrigated and CBI started Hold SQ Heparin; will order SCD's instead Will need cystoscopy at later date and may need HBO as outpt to help RX Radiation cystitis Will follow. 07/28 73 y.o male with metastatic CaP with gross hematuria 24F 3-way palacios in place; urine now clear Cysto as outpt. 07/29 73 y.o male with metastatic CaP with gross hematuria Will need cysto with fulguration of bleeding in OR today Continue NPO. 07/30 73 y.o male with metastatic CaP with gross hematuria Continue supportive measures/transfusion/Amicar CBI To d/w Radiation oncology tomorrow. D/W Dr. Gant 07/31 73 y.o male with metastatic CaP with gross hematuria Continue supportive measures/transfusion/Amicar CBI Possible XRT therapy for control of bleeding. 08/01 73 y.o male with metastatic CaP with gross hematuria Urine now clearing on Amicar CBI XRT to start soon For SP tube insertion on . 08/02 73 y.o male with metastatic CaP with gross hematuria Urine now clearing on Amicar CBI XRT to start soon For SP tube insertion tomorrow. 08/04 Stable s/p SP tube insertion Continue CBI over the weekend Hopeful void trial Tuesday AM if urine remains clear. 08/05 Ongoing hematuria with subsequent blockage of Palacios catheter secondary to clot formation. Suprapubic catheter repositioned and three-way Palacios catheter exchanged for a two-way 20 Japanese Palacios CBI reimplemented 08/06 CBI running well with resolution of the hematuria. We will continue with CBI at a slow rate and titrate up if necessary. 08/07 73 y.o male with metastatic prostate cancer with gross hematuria Palacios removed at bedside For XRT today. 08/08 73 y.o male with metastatic prostate cancer with gross hematuria Hematuria has resolved. Continue with XRT Fever-ID following. 08/09 73 y.o male with metastatic prostate cancer with gross hematuria Hematuria has resolved. Continue with XRT Irrigate SP tube prn 08/09 73 y.o male with metastatic prostate cancer with gross hematuria Hematuria has resolved. Continue with XRT therapy Still having fever. For Flex Sig today Irrigate SP tube prn Continue Detrol for leakage.
--- NOTE | 2018-08-10 13:40 | GIPROC ---
[facility] [address] [facility]. [facility], [address] FLEXIBLE SIGMOIDOSCOPY PROCEDURE REPORT EXAM DATE: 08/10/2018 PATIENT NAME: Servando Queen MR #: [id number] BIRTHDATE: 1945 ORDER #: [id number] ATTENDING: Judith Austin MD CARD TAPE CONVERTER OPERATOR: Neto Frausto and Ness Gutiérrez STATUS: inpatient INDICATIONS: The patient is a 73 yr old male here for a flexible sigmoidoscopy due to rectal pain PROCEDURE PERFORMED: Flexible Sigmoidoscopy, diagnostic MEDICATIONS: None and Per Anesthesia. ESTIMATED BLOOD LOSS: None CONSENT: The patient understands the risks and benefits of the procedure and understands that these risks include, but are not limited to: sedation, allergic reaction, infection, perforation and/or bleeding. Alternative means of evaluation and treatment include, among others: physical exam, x-rays, and/or surgical intervention. The patient elects to proceed with this endoscopic procedure. medical equipment was checked for proper function. Hand hygiene and appropriate measures for infection prevention was taken. After the risks, benefits and alternatives of the procedure were thoroughly explained, Informed consent was verified, confirmed and timeout was successfully executed by the treatment team. A digital rectal exam revealed external hemorrhoids The Pentax [id number] endoscope was introduced through the anus and advanced to the sigmoid colon. The prep was marginal. The instrument was then slowly withdrawn as the colon was fully examined. COLON FINDINGS: There was moderate diverticulosis noted in the sigmoid colon. Retroflexed views revealed internal hemorrhoid The scope was then completely withdrawn from the patient and the procedure terminated. ADVERSE EVENTS: There were no complications. IMPRESSIONS: 1. Moderate diverticulosis was noted in the sigmoid colon 2. Retroflexed views revealed internal hemorrhoid 3. Revealed external hemorrhoids RECOMMENDATIONS: 1. Fiber rich diet 2. Hydrocortisone supp 25mg DC bid RECALL: Return As need for Flexible Sigmoidoscopy Judith Austin MD eSigned: Judith Austin MD 08/10/2018 1:39 PM cc:
--- NOTE | 2018-08-10 14:56 | P.PNNP ---
Subjective Interval history: patient is having intermittent fever. He is on Zosyn. ID following. Sigmoidoscopy today. Physical Exam Vital signs: Vital Signs 08/09/18 16:00 08/09/18 17:30 08/09/18 20:00 Temperature 99.7 F H 102.5 F H 102.1 F H Pulse Rate 89 93 H Respiratory Rate 20 18 Blood Pressure 132/69 103/47 L Pulse Oximetry 91 L 94 L 08/10/18 00:00 08/10/18 04:00 08/10/18 08:06 Temperature 100 F H 98.9 F 97.6 F Pulse Rate 80 69 66 Respiratory Rate 15 15 20 Blood Pressure 100/47 L 114/53 L 108/55 L Pulse Oximetry 95 97 97 08/10/18 14:23 Temperature 96.9 F L Pulse Rate 76 Respiratory Rate 16 Blood Pressure 126/58 L Pulse Oximetry 95 Intake & Output 08/09/18 08/10/18 08/10/18 18:59 06:59 18:59 Intake Total 50 / 50 590 / 590 200 / 200 Output Total 1300 / 1300 1450 / 1450 Balance -1250 / -1250 -860 / -860 200 / 200 Weight 82 kg Intake: IV 50 / 50 150 / 150 Zosyn 2.25 GM Premix 50 ML @ 50 / 50 150 / 150 100 mls/hr IV.SIG Q6H [facility] Rx#: [id number] Oral 440 / 440 Anesthesia Amount 200 / 200 Output: Urine 1450 / 1450 Urine Amount (Catheter) 1300 / 1300 Suprapubic 1300 / 1300 Other: Date of Last Bowel Movement 08/09/18 Narrative: Suprapubic catheter in place. Chest: clear Abdomen: soft. No edema. - Urinary Catheter Management Indwelling Urethral Catheter Cath placed during this visit: yes, but has since been removed by the nurse Reason for continuing: Decision to DC catheter Insertion date: 08/05/18 Insertion time: 18:00 Removal date: 08/07/18 Removal time: 08:30 Suprapubic Cath placed during this visit: yes Reason for continuing: Gross Hematuria Insertion date: 08/03/18 3-way Urethral Cath placed during this visit: yes Reason for continuing: Gross Hematuria Insertion date: 08/03/18 Assessment and Plan - Assessment (1) Acute on chronic kidney failure Code(s): N17.9 - Acute kidney failure, unspecified; N18.9 - Chronic kidney disease, unspecified Status: Acute Plan: patient's renal function is stable, this may be a new baseline. Monitor. Avoid nephrotoxic agents. Monitor urine output. Repeat labs. (2) Gross hematuria Code(s): R31.0 - Gross hematuria Status: Acute Plan: Urology following. Possible bleeding from prostate. May have prostatitis. Underwent suprapubic catheter placement. Being followed by Oncology and urology. (3) Prostate cancer metastatic to bone Code(s): C61 - Malignant neoplasm of prostate; C79.51 - Secondary malignant neoplasm of bone Status: Acute Plan: Hematology/Oncology note was reviewed. (4) Acute UTI Code(s): N39.0 - Urinary tract infection, site not specified Status: Acute Plan: Possible prostatitis. ID on the case. Ti.
[2018-08-10 16:13] LABS: Calcium 7.1 mg/dL (8.5-10.1)
--- NOTE | 2018-08-10 16:36 | P.PN ---
Subjective Interval history: Nursing denies any deterioration since last night. Patient is complaining of back pain and is concerned about this. Physical Exam Vital signs: Vital Signs 08/09/18 17:30 08/09/18 20:00 08/10/18 00:00 Temperature 102.5 F H 102.1 F H 100 F H Pulse Rate 93 H 80 Respiratory Rate 18 15 Blood Pressure 103/47 L 100/47 L Pulse Oximetry 94 L 95 08/10/18 04:00 08/10/18 08:06 08/10/18 14:23 Temperature 98.9 F 97.6 F 96.9 F L Pulse Rate 69 66 76 Respiratory Rate 15 20 16 Blood Pressure 114/53 L 108/55 L 126/58 L Pulse Oximetry 97 97 95 Intake & Output 08/09/18 08/10/18 08/10/18 18:59 06:59 18:59 Intake Total 50 / 50 590 / 590 200 / 200 Output Total 1300 / 1300 1450 / 1450 Balance -1250 / -1250 -860 / -860 200 / 200 Weight 82 kg Intake: IV 50 / 50 150 / 150 Zosyn 2.25 GM Premix 50 ML @ 50 / 50 150 / 150 100 mls/hr IV.SIG Q6H [facility] Rx#: [id number] Oral 440 / 440 Anesthesia Amount 200 / 200 Output: Urine 1450 / 1450 Urine Amount (Catheter) 1300 / 1300 Suprapubic 1300 / 1300 Other: Date of Last Bowel Movement 08/09/18 Narrative: Sitting up in chair, appears well-groomed Clear lungs bilaterally, unlabored breathing - Urinary Catheter Management Indwelling Urethral Catheter Cath placed during this visit: yes, but has since been removed by the nurse Reason for continuing: Decision to DC catheter Insertion date: 08/05/18 Insertion time: 18:00 Removal date: 08/07/18 Removal time: 08:30 Suprapubic Cath placed during this visit: yes Reason for continuing: Gross Hematuria Insertion date: 08/03/18 3-way Urethral Cath placed during this visit: yes Reason for continuing: Gross Hematuria Insertion date: 08/03/18 Results - Labs CBC & Chem 7: 08/09/18 10:42 08/09/18 04:18 Laboratory Results - last 24 hr 08/09/18 04:18 Calcium 7.1 L* Microbiology 08/05/18 10:41 Blood - Peripheral Aerobic Blood Culture - Final No growth in 5 days 08/05/18 10:41 Blood - Peripheral Anaerobic Blood Culture - Final No growth in 5 days 08/05/18 08:30 Blood - Peripheral Aerobic Blood Culture - Final No growth in 5 days 08/05/18 08:30 Blood - Peripheral Anaerobic Blood Culture - Final No growth in 5 days - Procedures 08/03/2018 Cystoscopy with placement of suprapubic tube, cystogram 07/29/2018 Cystoscopy with fulguration of prostate bleeding Assessment and Plan - Assessment (1) Acute UTI Code(s): N39.0 - Urinary tract infection, site not specified Status: Acute (2) Prostate cancer metastatic to bone Code(s): C61 - Malignant neoplasm of prostate; C79.51 - Secondary malignant neoplasm of bone Status: Acute - Plan Mr. Queen is a pleasant 73-year-old male with a history of metastatic prostate carcinoma who was admitted to the hospital due to fever, hematuria and pelvic pain. Infectious disease as well as oncology and urology have been following patient. Patient is currently on levofloxacin and meropenem. His hemodynamic status is stable but is still spiking low-grade fevers. Recurrent fevers -Thought to be due to sepsis but at this point being pursued as a fever of unknown origin as the patient's clinical status otherwise from his acute prostatitis is significantly improved. CMV PCR is negative. Sigmoidoscopy today Acute prostatitis -Continue levofloxacin and meropenem per infectious disease -Blood cx negative. Urine cx from 07/22/2018 showed Staph Epi. -Another fever last night but to a lower extent, blood cultures are negative again from 08/05 Rectal pain -Possible anal fissure versus hemorrhoids, GI recommendations sigmoidoscopy with patient is deferring this at the time. Anal gel for pain symptoms. Improving overall with foam application, Back pain -Lidoderm patch. Will consider repeat imaging if prior images are unrevealing. Persistent hematuria Bilateral hydronephrosis on ultrasound left greater than right -Radiation oncology is planning treatments. -Suprapubic catheter placement on 08/03/2018. -Successful voiding trial today after urology has removed catheter Acute post-hemorrhagic anemia due to Genitourinary tract bleeding. -Two units of PRBCs on 08/02/2018. Metastatic prostate carcinoma -Oncology is following. Patient is has had good response to leuprolide and Enzalutamide (Xtandi). -Continue oxycodone for pain control. Continue long-acting OxyContin 20 mg twice daily. Hypocalcemia Acute kidney injury on Chronic kidney disease -Nephrology is following. Creatinine hovering around 2.2-2.3. -Stabilized Full code. Ambulation. Pharmacological DVT prophylaxis contraindicated at this point. Discharge Planning: DC when fevers have stopped or when ID clears pt. Pt wants to return home, not go to SNF. Pt and going back and forth on option for hospice. Order placed for consult.
--- NOTE | 2018-08-10 17:58 | P.PNONC ---
Subjective Interval history: Patient seen and examined, vital signs, labs, medications, procedure notes, micro[employer] bi consultant notes and microbiology reviewed. The patient reports feeling generally weak, he reports headaches, fevers and pain in his pelvis posteriorly. Earlier today he underwent sigmoidoscopy. He continues to receive palliative radiation to the prostate. There has been no additional hematuria of significance. Objective Vital Signs/Intake & Output: Vital Signs 08/09/18 20:00 08/10/18 00:00 08/10/18 04:00 Temperature 102.1 F H 100 F H 98.9 F Pulse Rate 93 H 80 69 Respiratory Rate 18 15 15 Blood Pressure 103/47 L 100/47 L 114/53 L Pulse Oximetry 94 L 95 97 08/10/18 08:06 08/10/18 14:23 08/10/18 17:08 Temperature 97.6 F 96.9 F L 99.8 F H Pulse Rate 66 76 81 Respiratory Rate 20 16 20 Blood Pressure 108/55 L 126/58 L 135/71 Pulse Oximetry 97 95 95 Intake & Output 08/09/18 08/10/18 08/10/18 18:59 06:59 18:59 Intake Total 50 / 50 590 / 590 200 / 200 Output Total 1300 / 1300 1450 / 1450 Balance -1250 / -1250 -860 / -860 200 / 200 Weight 82 kg Intake: IV 50 / 50 150 / 150 Zosyn 2.25 GM Premix 50 ML @ 50 / 50 150 / 150 100 mls/hr IV.SIG Q6H [facility] Rx#: [id number] Oral 440 / 440 Anesthesia Amount 200 / 200 Output: Urine 1450 / 1450 Urine Amount (Catheter) 1300 / 1300 Suprapubic 1300 / 1300 Other: Date of Last Bowel Movement 08/09/18 Result Diagrams: 08/09/18 10:42 08/09/18 04:18 Laboratory Results: Laboratory Results - last 24 hr 08/09/18 04:18 Calcium 7.1 L* Culture Results: Microbiology 08/05/18 10:41 Aerobic Blood Culture - Final Blood - Peripheral No growth in 5 days Anaerobic Blood Culture - Final No growth in 5 days 08/05/18 08:30 Aerobic Blood Culture - Final Blood - Peripheral No growth in 5 days Anaerobic Blood Culture - Final No growth in 5 days Medications: Active Medications Generic Name Dose Route Start Last Admin Trade Name Freq PRN Reason Stop Dose Admin Acetaminophen 650 mg 09/08/18 13:55 08/09/18 22:19 Tylenol PO 650 mg Q4H PRN Administration fever Acetaminophen 650 mg 07/29/18 08:29 08/01/18 20:35 Tylenol PO 650 mg Q4H PRN Administration SEE LABEL COMMENTS Belladonna Alkaloids/Opium 60 mg 08/02/18 15:30 08/06/18 13:53 B & O Supp RECTAL 60 mg Q6HR PRN Administration BLADDER SPASM Bupropion HCl 150 mg 07/22/18 14:00 08/10/18 13:27 Wellbutrin Xl PO 150 mg DAILY MILDRED Administration Sodium Chloride 3,000 ml/ 0 ml 07/29/18 23:03 08/06/18 13:28 Aminocaproic Acid 3,000 mg IRRIGATION 3,000 irrig.soln Q24H PRN Administration TO KEEP URINE CLEAR Diazepam 5 mg 07/22/18 13:57 08/04/18 23:23 Valium PO 5 mg DAILY PRN Administration Anxiety Docusate Sodium 100 mg 07/25/18 15:45 08/10/18 13:27 Colace PO Not Given TID MILDRED Folic Acid 1 mg 07/24/18 12:00 08/10/18 08:42 Folic Acid PO 1 mg DAILY MILDRED Administration Gabapentin 300 mg 07/23/18 21:00 08/10/18 08:42 Neurontin PO 300 mg BID MILDRED Administration Hydrocortisone Acetate 1 applicatio 08/06/18 18:00 08/10/18 13:26 Anusol-Hc RECTAL Not Given TID MILDRED Hydromorphone HCl 0.5 mg 07/26/18 19:30 08/10/18 14:42 Dilaudid Pf Inj IV.PUSH 0.5 mg Q4H PRN Administration BREAKTHROUGH PAIN Lactulose 30 ml 08/07/18 09:00 08/10/18 13:27 Lactulose Liq PO Not Given BID MILDRED Latanoprost 1 drop 07/22/18 21:00 08/09/18 22:22 Xalatan 0.005% Opth Drops EACH EYE 1 drop HS MILDRED Administration Lidocaine HCl 1 applicatio 08/05/18 17:15 08/05/18 20:46 Xylocaine 5% Oint TOPICAL 1 applicatio Q8H PRN Administration Acute Pain Lidocaine HCl 1 patch 08/06/18 15:00 08/10/18 13:27 Lidoderm 5% Patch.12 Hr T-DERMAL 1 patch DAILY MILDRED Administration Oxycodone HCl 5 mg 07/22/18 14:46 08/10/18 17:04 Roxicodone PO 5 mg Q4H PRN Administration breakthrough pain Oxycodone HCl 20 mg 08/01/18 20:00 08/10/18 08:42 Oxycontin Cr PO 20 mg Q12H MILDRED Administration Patch Removal 1 each 08/06/18 21:00 08/09/18 22:21 Remove Old Patch T-DERMAL 1 each HS MILDRED Administration Tenofovir Disoproxil Fumarate 300 mg 07/24/18 09:00 08/09/18 08:34 Viread PO 300 mg EVERY OTHER DAY MILDRED Administration Tolterodine Tartrate 4 mg 07/24/18 13:00 08/10/18 08:42 Detrol La PO 4 mg DAILY MILDRED Administration Vitamin D 2,000 unit 07/25/18 09:00 08/10/18 08:42 Vitamin D3 PO 2,000 unit DAILY MILDRED Administration Objective Remarks: GENERAL: Elderly male, laying in bed, not acutely distressed, awake, alert and oriented he appears to be chronically ill. Somewhat frail appearing. SKIN: Pale, warm and dry. HEAD: Normocephalic. EYES: Conjunctivae pale, no scleral icterus. No injection or drainage. NECK: Supple, trachea midline. No JVD or lymphadenopathy. LYMPHATIC: No adenopathy. CARDIOVASCULAR: Regular rate and rhythm without murmurs. RESPIRATORY: Breath sounds equal bilaterally. No accessory muscle use. GASTROINTESTINAL: Thin abdomen, soft, tenderness over the left lower quadrant, positive bowel sounds. Now with suprapubic catheter in place. Engel Catheter has been removed. Bladder irrigation has been d/flash. EXTREMITIES: No cyanosis, pitting edema noted around the ankles and dependent portions of the leg. MUSCULOSKELETAL: Generally decreased muscle mass. NEUROLOGICAL: Awake, alert, oriented, he has asked direct assist type clonus involving the hands. PSYCHIATRIC: Appropriate mood and affect; insight and judgment normal. Assessment/Plan - Plan Mr. Queen Is a 73-year-old man with a diagnosis of metastatic prostate carcinoma , he has had an excellent response to combination therapy consisting of leuprolide and Xtandi. His PSA levels have been less than 0.1 ng/dL over the past several months. He has extensive metastatic disease burden involving his axial skeleton especially his pelvis. Most recent PET CT scan revealed most of his previously active metastatic disease to be dormant, he however had intense hypermetabolic activity localized to the prostate and to the bladder. In late June he underwent cystoscopy for workup of hematuria with his former urologist Dr. Parmar, no obvious cause for hematuria was identified. He is now in the hospital with fevers, hematuria and pelvic pain. Clinically he has suspected prostatitis and is on broad-spectrum antibiotics with Zosyn and levofloxacin. Urine cultures and blood cultures are negative thus far other than forced staph epidermidis. CT scan of the abdomen/pelvis revealed no obvious cause for the hematuria. Recommendations: 1. Febrile illness: Continues to have fevers, earlier today Zosyn was discontinued. The concern is for antibiotic related fevers. 2. Hematuria: Resolved. Radiation to prostate started on 08/07. Suprapubic catheter draining clear yellow urine. 3. Pain control, continue long and short acting opioids. Monitor for oversedation. Continue Anusol-Hc for rectal pain. 4. Metastatic prostate carcinoma, PSA less than 0.1; plans to resume Xtandi upon discharge from the hospital. 5. Anemia: Hemoglobin stable at around 8 g/dL. 6. Asterixis significant on clinical exam, indicating likely hepatic encephalopathy. He is on lactulose. The patient does have chronic hepatitis B and likely underlying hepatic dysfunction.
[2018-08-10] MEDS: Latanoprost 0.005% Opth Drops 2.5 ML Bottle EACH EYE SCH (20:15)
[2018-08-10] MEDS: diazePAM 5 MG Tablet PO PRN (21:21)
[2018-08-11] MEDS: Acetaminophen 325 MG Tablet PO PRN ×2 (01:01→15:42)
--- NOTE | 2018-08-11 08:53 | P.PNURO ---
Subjective Patient symptoms today: Pt seen and examined. Urine clear. Feels well. Still having fever. Flex sig: diverticulitis Objective Vital Signs: Vital Signs 08/10/18 14:23 08/10/18 17:08 08/10/18 20:09 Temperature 96.9 F L 99.8 F H 98.3 F Pulse Rate 76 81 92 H Respiratory Rate 16 20 20 Blood Pressure 126/58 L 135/71 116/57 L Pulse Oximetry 95 95 94 L 08/10/18 20:44 08/10/18 21:50 08/11/18 00:55 Temperature 100.1 F H Pulse Rate 98 H Respiratory Rate 16 18 20 Blood Pressure 130/55 L Pulse Oximetry 94 L 08/11/18 01:30 08/11/18 04:50 Temperature 98.6 F Pulse Rate 64 Respiratory Rate 18 20 Blood Pressure 102/53 L Pulse Oximetry 97 Intake & Output 08/10/18 08/11/18 08/11/18 18:59 06:59 18:59 Intake Total 200 / 200 Output Total 1650 / 1650 1450 / 1450 Balance -1450 / -1450 -1450 / -1450 Weight 82.2 kg Intake: Anesthesia Amount 200 / 200 Output: Urine 850 / 850 Urine Amount (Catheter) 1650 / 1650 600 / 600 Suprapubic 1650 / 1650 600 / 600 Other: Date of Last Bowel Movement 08/10/18 08/10/18 Result Diagrams: 08/09/18 10:42 08/09/18 04:18 Procedures: Suprapubic catheter gently repositioned after balloon deflated. Balloon subsequently reinflated with 10 cc sterile water. Catheter then secured to lower abdomen with fixation device. Three-way Palacios catheter then replaced with a 20 Japanese two-way Palacios catheter and subsequently irrigated with evacuation of a few small clots. CBI then re- implemented with inflow via the Palacios and outflow via the suprapubic catheter and titrated to light pink return. Medications and IVs: Active Medications Generic Name Dose Route Start Last Admin Trade Name Freq PRN Reason Stop Dose Admin Acetaminophen 650 mg 07/22/18 13:55 08/11/18 01:01 Tylenol PO 650 mg Q4H PRN Administration fever Acetaminophen 650 mg 07/29/18 08:29 08/01/18 20:35 Tylenol PO 650 mg Q4H PRN Administration SEE LABEL COMMENTS Belladonna Alkaloids/Opium 60 mg 08/02/18 15:30 08/06/18 13:53 B & O Supp RECTAL 60 mg Q6HR PRN Administration BLADDER SPASM Bupropion HCl 150 mg 07/22/18 14:00 08/10/18 13:27 Wellbutrin Xl PO 150 mg DAILY MILDRED Administration Sodium Chloride 3,000 ml/ 0 ml 07/29/18 23:03 08/06/18 13:28 Aminocaproic Acid 3,000 mg IRRIGATION 3,000 irrig.soln Q24H PRN Administration TO KEEP URINE CLEAR Diazepam 5 mg 07/22/18 13:57 08/10/18 21:21 Valium PO 5 mg DAILY PRN Administration Anxiety Docusate Sodium 100 mg 07/25/18 15:45 08/10/18 20:10 Colace PO Not Given TID [facility] Folic Acid 1 mg 07/24/18 12:00 08/10/18 08:42 Folic Acid PO 1 mg DAILY MILDRED Administration Gabapentin 300 mg 07/23/18 21:00 08/10/18 20:14 Neurontin PO 300 mg BID [facility] Administration Hydrocortisone Acetate 25 mg 08/05/18 17:13 Hemorrhoidal Hc Supp RECTAL TID PRN Acute Pain Hydrocortisone Acetate 1 applicatio 08/06/18 18:00 08/10/18 20:10 Anusol-Hc RECTAL Not Given TID [facility] Hydromorphone HCl 0.5 mg 07/26/18 19:30 08/10/18 14:42 Dilaudid Pf Inj IV.PUSH 0.5 mg Q4H PRN Administration BREAKTHROUGH PAIN Lactulose 30 ml 08/07/18 09:00 08/10/18 20:14 Lactulose Liq PO Not Given BID [facility] Latanoprost 1 drop 07/22/18 21:00 08/10/18 20:15 Xalatan 0.005% Opth Drops EACH EYE 1 drop HS MILDRED Administration Lidocaine HCl 1 applicatio 08/05/18 17:15 08/05/18 20:46 Xylocaine 5% Oint TOPICAL 1 applicatio Q8H PRN Administration Acute Pain Lidocaine HCl 1 patch 08/06/18 15:00 08/10/18 13:27 Lidoderm 5% Patch.12 Hr T-DERMAL 1 patch DAILY MILDRED Administration Oxycodone HCl 5 mg 07/22/18 14:46 08/11/18 01:01 Roxicodone PO 5 mg Q4H PRN Administration PAIN SCALE 1 TO 5 Oxycodone HCl 20 mg 08/01/18 20:00 08/10/18 20:14 Oxycontin Cr PO 20 mg Q12H MILDRED Administration Oxycodone HCl 10 mg 08/10/18 17:59 08/11/18 05:46 Roxicodone PO 10 mg Q6H PRN Administration PAIN SCALE 6 TO 10 Patch Removal 1 each 08/06/18 21:00 08/10/18 20:14 Remove Old Patch T-DERMAL 1 each HS MILDRED Administration Pom: (Lubiprostone [ 0 each 07/22/18 21:00 Amitiza] 24 Mcg) PO BID MILDRED Tenofovir Disoproxil Fumarate 300 mg 07/24/18 09:00 08/09/18 08:34 Viread PO 300 mg EVERY OTHER DAY MILDRED Administration Tolterodine Tartrate 4 mg 07/24/18 13:00 08/10/18 08:42 Detrol La PO 4 mg DAILY MILDRED Administration Vitamin D 2,000 unit 07/25/18 09:00 08/10/18 08:42 Vitamin D3 PO 2,000 unit DAILY MILDRED Administration Objective Remarks: IVONNE RRR Clear lungs Palacios is in place, urine is light pink 07/27 Abd:soft,nt,nd Palacios on CBI; now with pink urine; clots cleared. 07/28 Abd:soft,nt, nd Palacios with clear urine. 07/29 Abd:soft,nt,nd Palacios with gross hematuria with clots. 07/30 Abd:soft,nt,nd Palacios; now clear. 07/31 Abd:soft,nt,nd Palacios; now clear. 08/01 Abd:soft,nt,nd Palacios; now clear. 08/02 Abd:soft,nt,nd Palacios: clear. 08/04 Abd:soft,nt,nd Palacios: clear. 08/05 Abdomen soft, with irrigant leakage noted around suprapubic catheter Urine output medium red in color 08/07 Abd:soft,nt,nd Palacios removed at bedside. Urine clear. 08/08 Abd:soft,nt,nd SP tube clear 08/09 Abd:soft,nt,nd SP tube clear 08/10 Abd:soft,nt,nd SP tube clear; urine leaking around tube site at times. 08/11 Abd:soft,nt,nd SP tube clear Assessment and Plan - Plan 73y.o M with other medical issues listed in HPI Urology consulted for hematuria, which is resolving now No additional recommendations, same as below - Continue care as per primary team - No acute intervention needed - Hematuria can be related to self cath and UTI as well as to previous radiation. - Continue current treatment, follow ID recommendations - Manual irrigation of the bladder may help to get rid of bladder clots/debris seen in the bladder on Sono. Do it BID - Pt to see his urologist after d/c for further management, may need cysto as outpt. 07/27/18 73 y.o male with metastatic CaP with gross hematuria 24F 3-way palacios in place; clots irrigated and CBI started Hold SQ Heparin; will order SCD's instead Will need cystoscopy at later date and may need HBO as outpt to help RX Radiation cystitis Will follow. 07/28 73 y.o male with metastatic CaP with gross hematuria 24F 3-way palacios in place; urine now clear Cysto as outpt. 07/29 73 y.o male with metastatic CaP with gross hematuria Will need cysto with fulguration of bleeding in OR today Continue NPO. 07/30 73 y.o male with metastatic CaP with gross hematuria Continue supportive measures/transfusion/Amicar CBI To d/w Radiation oncology tomorrow. D/W Dr. Gant 07/31 73 y.o male with metastatic CaP with gross hematuria Continue supportive measures/transfusion/Amicar CBI Possible XRT therapy for control of bleeding. 08/01 73 y.o male with metastatic CaP with gross hematuria Urine now clearing on Amicar CBI XRT to start soon For SP tube insertion on . 08/02 73 y.o male with metastatic CaP with gross hematuria Urine now clearing on Amicar CBI XRT to start soon For SP tube insertion tomorrow. 08/04 Stable s/p SP tube insertion Continue CBI over the weekend Hopeful void trial Tuesday AM if urine remains clear. 08/05 Ongoing hematuria with subsequent blockage of Palacios catheter secondary to clot formation. Suprapubic catheter repositioned and three-way Palacios catheter exchanged for a two-way 20 Japanese Palacios CBI reimplemented 08/06 CBI running well with resolution of the hematuria. We will continue with CBI at a slow rate and titrate up if necessary. 08/07 73 y.o male with metastatic prostate cancer with gross hematuria Palacios removed at bedside For XRT today. 08/08 73 y.o male with metastatic prostate cancer with gross hematuria Hematuria has resolved. Continue with XRT Fever-ID following. 08/09 73 y.o male with metastatic prostate cancer with gross hematuria Hematuria has resolved. Continue with XRT Irrigate SP tube prn 08/10 73 y.o male with metastatic prostate cancer with gross hematuria Hematuria has resolved. Continue with XRT therapy Still having fever. For Flex Sig today Irrigate SP tube prn Continue Detrol for leakage. 08/11 73 y.o male with metastatic prostate cancer with gross hematuria Hematuria has resolved. Continue with XRT therapy No clear evidence for cause of fevers.
--- NOTE | 2018-08-11 09:29 | P.CONPAL ---
Consult Service: Palliative Care Requesting Physician: Robert Wang Reason for Consult: a. To assist with evaluation and management of symptoms including:pain, debility, pain b. To assist medical decision maker(s) with: better understanding of current medical conditions; weighing benefits/burdens of medical treatment options; making medical treatment decisions. Primary Care Provider: Marcelo Cote MD History of Present Illness History of Present Illness: Mr. Queen is a 73yo gentleman with a past medical history of hypertension, kidney disease, hepatitis B, and metastatic prostate cancer which has intruded to the bone. He presented to [place] [facility] on 07/22/18 with complaints of generalized malaise, weakness, and fever of 102. He is currently undergoing chemotherapy and has had seeding. He suffers with intermittent hematuria. This was previous believed to be due to frequent self catheterization at home. He also apparently fell at home and is complaining of a laceration over his left forehead and bilateral rib pain. The decision was made to admit Mr. Queen for further evaluation and treatment. Initial emergency room evaluation revealed: * Temp 99.3, pulse 81, respiratory rate 20, BP 110/54, pulse oximetry 95% on room air * WBC 8.0, hemoglobin 8.2, hematocrit 25.3, platelets 431, neutrophils 76.5 * Na 144, K+ 4.4, Cl 109, BUN 19, creatinine 2.08, estimated GFR 31, glucose 118 , Ca 7.0, PCC 7.1 * Total bilirubin 0.4, AST, 21, ALT 10, alkaline phosphatase 92, total protein 7.0, albumin 2.5 * UA negative for occult blood, nitrates, and bacteria * CXR The lungs are grossly clear. Sclerotic metastatic disease noted in multiple ribs, coracoid process, and humeral neck Urology was consulted (originally Dr. Oviedo, was switched to Dr. Miranda) and suggested manual irrigation of the bladder which seemed to alleviate his hematuria for a time but then had recurrence requiring transfusions. The patient eventually underwent inpatient cystoscopy with fulguration in an attempt to stop the bleeding and is now currently on CBI. Dr. Gorman ( infections disease) was consulted for UTI treatment and fevers. She placed the patient on IV antibiotics and is also treating the patient for clinically suspected prostatitis. Dr. Austin (gastroenterology) was consulted due to reports of rectal and buttock pain. Sigmoidoscopy was performed on 08/10/18 showing diverticulosis as well as internal and eternal hemorrhoids but no clear etiology for pain. Dr. Gant was consulted as he is known to the patient for his prostate cancer, anemia, and to weigh in on the persistent hematuria and hypocalcemia. Suggested the patient undergo simulation for palliative radiation of the pelvis to help relieve the bleeding. He did mention to the patient that he may not be able to return to his previous level of functioning and will most likely need to to remain with an indwelling Engel catheter. Dr. Ortega (nephrology) was also consulted due to worsening renal function. He made some changes to his blood pressure medications and the patients renal function has appeared to stabilize to his baseline for now. Palliative care was consulted to assist with symptom management revolving around pain, increased debility, as well as assisting with goals of medical treatment. The patient has considered hospice in the past. Upon meeting Mr. Queen, he is sleepy but easily arousable. He is oriented x 3 and very pleasant. He is able to answer my questions appropriately though defers most answers to his . He does offer his agreement or disagreement to her statements. His main concern is pain, which he states has never really been under acceptable control. He rates his pain 7/10 despite a recent doubling of his current opioids. The pain is in his hips and back though he reports generalized discomfort. He is noticed to moan intermittently during the discussion. Further discussion about goals, etc per family conference. Function/Cognitive Trajectory: Previously the patient was living at home with his . He was able to ambulate independently with a cane, at times was using a rolling walker. He was independent of all ADL's. He was working out 2-3 times a week Review of Systems Constitutional: Reports body ache(s), Reports chills, Reports fatigue Gastrointestinal: Reports change in stools, Reports nausea Genitourinary: Reports blood in urine Musculoskeletal: Reports back pain, Reports body aches, Reports joint pain Psychiatric: Reports anxiety PMFSH - History History Provided By: Patient, Significant Other - Medical History Medical History: Medical History (Last Updated 08/11/18 @ 10:35 by WENDY Gomez) Chronic pain due to neoplasm (Acute) Prostate cancer metastatic to bone (Acute) Prostate cancer (Acute) Hematuria Hepatitis B Hypertension Kidney disease Urinary retention - Surgical History Surgical History: Surgical History (Last Updated 08/11/18 @ 10:35 by WENDY Gomez) S/P cholecystectomy S/P hip replacement - Family History Family History: Family History (Last Updated 08/11/18 @ 10:37 by WENDY Gomez) Father Lung cancer Mother Throat cancer - Social History I have reviewed the patient's Social History: Yes - Tobacco History Second Hand Smoke Exposure: No Tobacco Use In Past 30 Days: No Smoking Status: Former smoker Tobacco Type: Cigarettes - Alcohol History How Often Do You Have a Drink Containing Alcohol: 2 to 4 times a month - Substance Use History Substance History: No History of Abuse - Substance Use Type Marijuana Status: Active Route Used: Inhalation Comment: medically provided to patient for pain - Travel History Recent Travel in the [place] Within the Last 8 Weeks: No Recent Travel Out of the Country Within the Last 8 Weeks: No - Immunization History Tetanus Immunization: Unsure Hx Influenza Vaccine This Season: Yes Medications and Allergies Active Medications: Active Medications Acetaminophen (Tylenol) 650 mg PO Q4H PRN PRN Reason: fever Last Admin: 08/11/18 01:01 Dose: 650 mg Acetaminophen (Tylenol) 650 mg PO Q4H PRN PRN Reason: SEE LABEL COMMENTS Last Admin: 08/01/18 20:35 Dose: 650 mg Belladonna Alkaloids/Opium (B & O Supp) 60 mg RECTAL Q6HR PRN PRN Reason: BLADDER SPASM Last Admin: 08/06/18 13:53 Dose: 60 mg Bupropion HCl (Wellbutrin Xl) 150 mg PO DAILY [facility] Last Admin: 08/10/18 13:27 Dose: 150 mg Sodium Chloride 3,000 ml/ (Aminocaproic Acid 3,000 mg) 0 ml IRRIGATION Q24H PRN PRN Reason: TO KEEP URINE CLEAR Last Admin: 08/06/18 13:28 Dose: 3,000 irrig.soln Diazepam (Valium) 5 mg PO DAILY PRN PRN Reason: Anxiety Last Admin: 08/10/18 21:21 Dose: 5 mg Docusate Sodium (Colace) 100 mg PO TID [facility] Last Admin: 08/10/18 20:10 Dose: Not Given Folic Acid (Folic Acid) 1 mg PO DAILY [facility] Last Admin: 08/10/18 08:42 Dose: 1 mg Gabapentin (Neurontin) 300 mg PO BID [facility] Last Admin: 08/10/18 20:14 Dose: 300 mg Hydrocortisone Acetate (Hemorrhoidal Hc Supp) 25 mg RECTAL TID PRN PRN Reason: Acute Pain Hydrocortisone Acetate (Anusol-Hc) 1 applicatio RECTAL TID [facility] Last Admin: 08/10/18 20:10 Dose: Not Given Hydromorphone HCl (Dilaudid Pf Inj) 0.5 mg IV.PUSH Q4H PRN PRN Reason: BREAKTHROUGH PAIN Last Admin: 08/10/18 14:42 Dose: 0.5 mg Lactulose (Lactulose Liq) 30 ml PO BID [facility] Last Admin: 08/10/18 20:14 Dose: Not Given Latanoprost (Xalatan 0.005% Opth Drops) 1 drop EACH EYE [facility] Last Admin: 08/10/18 20:15 Dose: 1 drop Lidocaine HCl (Xylocaine 5% Oint) 1 applicatio TOPICAL Q8H PRN PRN Reason: Acute Pain Last Admin: 08/05/18 20:46 Dose: 1 applicatio Lidocaine HCl (Lidoderm 5% Patch.12 Hr) 1 patch T-DERMAL DAILY [facility] Last Admin: 08/10/18 13:27 Dose: 1 patch Oxycodone HCl (Roxicodone) 5 mg PO Q4H PRN PRN Reason: PAIN SCALE 1 TO 5 Last Admin: 08/11/18 01:01 Dose: 5 mg Oxycodone HCl (Oxycontin Cr) 20 mg PO Q12H [facility] Last Admin: 08/10/18 20:14 Dose: 20 mg Oxycodone HCl (Roxicodone) 10 mg PO Q6H PRN PRN Reason: PAIN SCALE 6 TO 10 Last Admin: 08/11/18 05:46 Dose: 10 mg Patch Removal (Remove Old Patch) 1 each T-DERMAL HS [facility] Last Admin: 08/10/18 20:14 Dose: 1 each Pom: (Lubiprostone [ (Amitiza] 24 Mcg)) 0 each PO BID [facility] Tenofovir Disoproxil Fumarate (Viread) 300 mg PO EVERY OTHER DAY [facility] Last Admin: 08/09/18 08:34 Dose: 300 mg Tolterodine Tartrate (Detrol La) 4 mg PO DAILY [facility] Last Admin: 08/10/18 08:42 Dose: 4 mg Vitamin D (Vitamin D3) 2,000 unit PO DAILY [facility] Last Admin: 08/10/18 08:42 Dose: 2,000 unit Allergies Allergy/AdvReac Type Severity Reaction Status Date / Time morphine Allergy Severe MORPHINE Verified 07/22/18 11:48 ALLERGY ADDED 12/19/07 @1500 - N/V Home Medications Medication Instructions Recorded Confirmed Type bimatoprost [Lumigan] 1 drp OPHTHALMIC (EYE) QPM 07/22/18 07/22/18 History bupropion HCl 150 mg PO QAM 07/22/18 07/22/18 History denosumab 120 mg SUB-Q Q4W 07/22/18 07/22/18 History diazepam [Valium] 5 mg PO DAILY PRN 07/22/18 07/22/18 History docusate sodium [Colace] 100 mg PO BID 07/22/18 07/22/18 History enzalutamide 160 mg PO DAILY 07/22/18 07/22/18 History folic acid 0.4 mg PO DAILY 07/22/18 07/22/18 History gabapentin 300 mg PO BID 07/22/18 07/22/18 History glucosamine-chondroitin [Osteo 2 tab PO DAILY 07/22/18 07/22/18 History Bi-Flex] leuprolide (3 month) 0 mg IM [id number] 07/22/18 07/22/18 History lubiprostone [Amitiza] 24 mcg PO BID 07/22/18 07/22/18 History oxycodone 5 mg PO Q4-6H 07/22/18 07/22/18 History oxycodone [OxyContin] 10 mg PO Q12H 07/22/18 07/22/18 History solifenacin [Vesicare] 10 mg PO DAILY 07/22/18 07/22/18 History telmisartan [Micardis] 80 mg PO DAILY 07/22/18 07/22/18 History tenofovir disoproxil fumarate 300 mg PO EVERY OTHER DAY 07/22/18 07/22/18 History [Viread] Advance Directives Living Will: Yes Healthcare Surrogate: Yes Health Care Surrogate Name and Number: Luba Queen, Power of Cheesemaker: Yes Power of Cheesemaker Name: Luba Queen, Power of Cheesemaker Power of Cheesemaker Relationship to Patient: Spouse Documented care wishes: The patient has a living will that states in the presence of a terminal condition, end-state condition, or persistent vegatative state he wishes for life-prolonging procedures be withheld and withdrawn including but not limited to surgery, antibiotics, CPR, and artificially administered feeding and fluids Today's verbally stated goals: The patient states that he wishes to get his pain to an acceptable level, which for him is 3-4/10, life his life and then be allowed to peacefully when it is his time. He would also like to continue to pursue chemotherapy and radiation therapy options with the understanding that these may be palliative in nature Family/friends goals: His verbalizes that she would like to get his pain under control, get him home with some support and let him be at peace. Ethical and Legal Issues: No known ethical issues at this time Physical Exam Vital Signs: Vital Signs - 24 hr 08/10/18 14:23 08/10/18 17:08 08/10/18 20:09 Temperature 96.9 F L 99.8 F H 98.3 F Pulse Rate 76 81 92 H Respiratory Rate 16 20 20 Blood Pressure 126/58 L 135/71 116/57 L Pulse Oximetry 95 95 94 L 08/10/18 20:44 08/10/18 21:50 08/11/18 00:55 Temperature 100.1 F H Pulse Rate 98 H Respiratory Rate 16 18 20 Blood Pressure 130/55 L Pulse Oximetry 94 L 08/11/18 01:30 08/11/18 04:50 Temperature 98.6 F Pulse Rate 64 Respiratory Rate 18 20 Blood Pressure 102/53 L Pulse Oximetry 97 I&O: Intake & Output 08/09/18 08/10/18 08/11/18 08/12/18 06:59 06:59 06:59 06:59 Intake Total 1000 / 1000 640 / 640 200 / 200 Output Total 700 / 700 2750 / 2750 3100 / 3100 Balance 300 / 300 -2110 / -2110 -2900 / -2900 Weight 81 kg 82 kg 82.2 kg Physical Exam: CONSTITUTIONAL/GENERAL: This is an adequately nourished patient, in no apparent distress. TUBES/LINES/DRAINS: :PIV SKIN: No jaundice, rashes, or lesions. Ecchymoses on upper extremities. No wounds seen anteriorly. Skin temperature appropriate. Not diaphoretic. HEAD: Atraumatic. Normocephalic. EYES: Pupils equal and round and reactive. Extraocular motions intact. No scleral icterus. No injection or drainage. Fundi not examined. ENT: Hearing grossly normal. Nose without bleeding or purulent drainage. Throat without visible erythema, exudates, masses, or lesions. NECK: Trachea midline. Supple, nontender. No palpable thyroid enlargement or nodularity. CARDIOVASCULAR: Regular rate and rhythm without murmurs, gallops, or rubs. No JVD. Peripheral pulses symmetric. RESPIRATORY/CHEST: Symmetric, unlabored respirations. Clear to auscultation. Breath sounds equal bilaterally. No wheezes, rales, or rhonchi. GASTROINTESTINAL: Abdomen soft, non-tender, nondistended. No hepato-splenomegaly , or palpable masses. No guarding. Bowel sounds present. GENITOURINARY: Without palpable bladder distension. Suprapubic catheter in place with clear urine MUSCULOSKELETAL: Extremities without clubbing, cyanosis. +1 edema to bilateral lower extremities. No calf tenderness. No mottling or clubbing. Tender to bilateral hips LYMPHATICS: No palpable cervical or supraclavicular adenopathy. NEUROLOGICAL: Awake and alert. Motor and sensory grossly within normal limits. Follows commands. Cognitively sharp. Moves all extremities. PSYCHIATRIC: No obvious anxiety/depression. no apparent hallucinations or other psychotic thought process. Diagnostic Tests Laboratory: Laboratory Results - last 72 hr 08/06/18 08/08/18 08/08/18 04:56 08:54 08:54 WBC 7.9 RBC 2.67 L Hgb 8.4 L Hct 24.3 L MCV 90.7 MCH 31.4 MCHC 34.6 RDW 15.5 Plt Count 326 MPV 6.8 L Prelim Diff (Auto) Slide review pending Neut % (Auto) 76.4 H Lymph % (Auto) 10.5 [place] % (Auto) 10.5 H Eos % (Auto) 2.3 Baso % (Auto) 0.3 Neut # (Auto) 6.0 Lymph # (Auto) 0.8 L [place] # (Auto) 0.8 Eos # (Auto) 0.2 Baso # (Auto) 0.0 WBC Differential . Diff Scan Auto diff confirmed Differential Comment . Sodium 140 Potassium 3.6 Chloride 104 Carbon Dioxide 27.3 Anion Gap 9 BUN 25 H Creatinine 1.86 H Estimated GFR 36 L Random Glucose 109 H Calcium 7.2 L* Prot Corrected Calcium 7.8 L Phosphorus Total Bilirubin 0.4 AST 27 ALT 13 Alkaline Phosphatase 77 Total Protein 6.0 L D Albumin 1.7 L CMV Qnt PCR IU/mL Undetected 08/09/18 08/09/18 04:18 10:42 WBC 7.5 RBC 2.57 L Hgb 8.0 L Hct 23.4 L MCV 91.2 MCH 31.3 MCHC 34.3 RDW 15.2 Plt Count 318 MPV 6.5 L Prelim Diff (Auto) Neut % (Auto) 80.0 H Lymph % (Auto) 5.8 L [place] % (Auto) 12.2 H Eos % (Auto) 1.7 Baso % (Auto) 0.3 Neut # (Auto) 6.0 Lymph # (Auto) 0.4 L [place] # (Auto) 0.9 Eos # (Auto) 0.1 Baso # (Auto) 0.0 WBC Differential . Diff Scan Differential Comment Auto diff final Sodium 138 Potassium 3.2 L Chloride 104 Carbon Dioxide 26.6 Anion Gap 7 BUN 26 H Creatinine 2.01 H Estimated GFR 33 L Random Glucose 90 Calcium 7.1 L* Prot Corrected Calcium Phosphorus 2.6 Total Bilirubin AST ALT Alkaline Phosphatase Total Protein Albumin 1.7 L CMV Qnt PCR IU/mL Result Diagrams: 08/11/18 15:36 08/09/18 04:18 Microbiology: Microbiology 08/05/18 10:41 Aerobic Blood Culture - Final Blood - Peripheral No growth in 5 days Anaerobic Blood Culture - Final No growth in 5 days 08/05/18 08:30 Aerobic Blood Culture - Final Blood - Peripheral No growth in 5 days Anaerobic Blood Culture - Final No growth in 5 days Imaging: Chest X-Ray 07/22/18 11:00 CONCLUSION: The lungs are grossly clear. Sclerotic metastatic disease. Abdomen/Bladder Ultrasound 07/23/18 00:00 CONCLUSION: 1. Significant debris within the bladder likely blood. Mild bilateral hydronephrosis left greater than right. Abdomen/Pelvis CT 07/24/18 00:00 CONCLUSION: 1. Abnormal bladder with increased density consistent with blood products and/ or tumor. A Engel catheter is present with a small amount of air. 2. New mild to moderate bilateral hydronephrosis. Small bilateral pleural effusions right greater than left. 3. Extensive sclerotic metastatic disease with interval progression. Procedures: 07/29/18 Cystoscopy with fulguration 08/01/18 Simulation for palliative radiation of the pelvis 08/10/18 Sigmoidoscopy for rectal pain - moderate diverticulosis was seen with internal and external hemorrhoids Patient/Family Conference Present at Family Conference: WENDY Lawrence Luba Queen, Family Conference Location: Bedside Issues Discussed: Discussion with the patient and family member included the following: * Palliative care role, purpose, approach * Additional medical, psychosocial, and spiritual history * Patients general health, functional status, and cognitive changes in the months leading up to the current hospitalization * Patient/family understanding of the current medical problems; both the patient and spouse show good insight into the current medical situation * Patient/family understanding of prognosis * Patients goals of care as best understood from advance directives and/or conversations and/or values; an emphasis was made on pain control and quality of life, confirmed patient's wish for DNR status. Community DNR signed and placed in chart * Current medical treatment options and benefits/burdens of those options * Likely scenarios comparing ongoing aggressive care with a transition to comfort measures only; discussed the possibility of the appropriateness of hospice if his goals change * Questions answered to the best of my ability * Palliative care contact information provided In summary, Mr. Queen appears to have clear understanding of his conditions and treatments in place. He is has written advance directives and clearly states his wishes and goals moving forward. For now, he wishes to continue with chemotherapy and explore the option, if any, of further palliative radiation to his spine. Assessment and Plan - Disease Oriented Problem List (1) Prostate cancer metastatic to bone (2) Chronic pain due to neoplasm - Symptom Scale (1) Pain 0-10 Scale: 7 (2) Constipation 0-10 Scale: Unable to quantify Pertinent Non-Medical Issues: Psychosocial: for 40+ years and currently lives at home. The couple have one daughter together. 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 The patient loves the arts and attended art festivals yearly with his . Spiritual: none Legal: There are no know legal issues at this time Ethical issues impacting care: There are no know spiritual issues impacting care at this time Important Contacts: Luba Queen, /[facility] [phone] or [phone] Mary Queen, daughter/alternate [facility] [phone] Prognosis: Even though Mr. Queen appears to be stable from a metastatic cancer standpoint with no increase in PSA and stable mary disease process, he still continues to experience pain and bleeding from his bladder. He may never return to his previous level of function and is at high risk for further debilitation and mortality. This patient would be a hospice candidate if goals were appropriate. Code Status: No Code DNR Plan: * LEGAL DECISION MAKER: The patient is currently able to participate in his own health care needs. Should his capacity change in any way, his Luba has been named his healthcare surrogate. There is a copy of his living will in the chart as well as the EMR * GOALS: For now, he wishes to continue with chemotherapy and explore the option, if any, of further palliative radiation to his spine. * CODE STATUS: DNR, a signed community DNR was placed in the chart and will be scanned into the EMR. His wishes were discussed at length during family meeting. * SYMPTOMS: Pain - multiple areas of bony metastasis. He has received XRT in the past which has provided some relief. Most recent imaging per oncology noted bony disease process stable 05/2018. Patient request if oncology would consider re-imaging to determine if additions XRT to the spine would be of any benefit. Pharmacological recommendations: -Current totals: 24h oxycodone requirement = 55mg which => 82.5mg oral morphine equivalents, 24h dilaudid requirement = 1.5mg => 30mg oral morphine equivalents/// total of both = approximately 112 oral morphine equivalents *upon exploration of pain history/medication regimen with patient and , he indicates that the oxycodone has never provided significant pain relief. he also endorses understanding that the pain will never be zero. Possible that his current opiate is not effective, could consider change to different opiate such as long-acting morphine or topical fentanyl. In the past, morphine IV post-op caused nausea. PO may not have the same effect, but could consider fentanyl instead. IV dilaudid has been effective here, consider PO dilaudid PRN for breakthrough to replace PRN oxycodone. (fentanyl patch 25mcg = 60mg oral morphine) -Recommend starting fentanyl patch at 25mcg/topical Q72h. D/C long acting oxycodone as well as short acting oxycodone. If fentanyl is started today, should begin effectiveness in approximately 5-6 hours. Would NOT recommend giving PO long acting oxy the evening. Monitor for lethargy or any other signs/symptoms of intolerance. -D/C PRN oxy and start dilaudid PO: conservative would be 1mg PO Q4h PRN breakthrough pain or more liberal 2mg PO Q4h PRN breakthrough pain, would leave 0.5mg IVP dilaudid in cause pain is not relieved with PO PRN *If after 24hrs on fentanyl patch, pt is requiring significant PRN's (> /= 5 does PRN), and still painful may consider increasing patch to 50 mcg Constipation - has potentiality for worsening symptoms due to chronic opiate use. Current regimen of Colace BID and prune juice is working but may need adjustments as pain regimen is adjusted Discussed at length with medical attending. d/w RN. Recommend monitoring/ adjusting medications for another day or 2 INPATIENT to monitor for effectiveness, possible side effects, or any other adjustments needed. Palliative care will continue to follow during hospital course his conditions evolves, to assist patient/decision-maker with understanding of medical conditions, weighing benefits/burdens of treatment options, for clarification of goals of treatment. Additionally will assist with any symptoms of palliative concern. Appreciation Thank you for the opportunity to participate in the care of Servando Queen. Attestation Attestation: To help prompt me to consider important information that might be impacting today's encounter and assessment, information from prior notes written by myself or my colleagues may have been "brought forward" into today's note. My signature on this note, however, is an attestation that I personally performed the exam, history, and/or decision-making noted today, and, unless otherwise indicated, the interactions with patient, family, and staff as well as the review of records all occurred today. I also attest that the listed assessment and stated plan reflect my best clinical judgment today based on the combination of historical information, prior notes, and today's exam/ interactions. When time spent is documented, it refers only to time spent today by the signer, or if indicated, combined time spent today by collaborating physician/nurse practitioner.
[2018-08-11] MEDS: Docusate Sodium 100 MG Capsule PO SCH ×3 (09:46→18:11)
[2018-08-11] MEDS: Folic Acid 1 MG Tablet PO SCH (09:47)
[2018-08-11] MEDS: buPROPion 150 MG XL 24 HR Tablet PO SCH (09:47)
[2018-08-11] MEDS: Gabapentin 300 MG Capsule PO SCH ×2 (09:47→20:40)
[2018-08-11] MEDS: Tolterodine Tartrate LA 4 MG Capsule PO SCH (09:48)
[2018-08-11] MEDS: Tenofovir 300 MG Tablet PO SCH (09:48)
[2018-08-11] MEDS: oxyCODONE 10 MG Controlled Release Tablet PO SCH (09:49)
[2018-08-11] MEDS: Calcium Carbonate 500 MG Tablet PO SCH ×2 (09:50→20:40)
[2018-08-11] MEDS: Lidocaine 5% Patch T-DERMAL SCH (09:51)
[2018-08-11] MEDS: HYDROmorphone PF Inj 2 MG/ML Vial IV.PUSH PRN (10:05)
--- NOTE | 2018-08-11 11:44 | P.PNGI ---
Subjective Interval history: Pt seen on stretcher returning from radiation, at bedside. Pt continues to have rectal and buttocks pain, discussed sigmoidoscopy findings with no clear etiology of the pain and that it could be from the cancer. Has not had a BM today. Denies nausea, vomiting, abdominal pain. <EnriqueJossie martinez - Last Filed: 08/11/18 11:41> Physical Exam Vital signs: Vital Signs 08/10/18 14:23 08/10/18 17:08 08/10/18 20:09 Temperature 96.9 F L 99.8 F H 98.3 F Pulse Rate 76 81 92 H Respiratory Rate 16 20 20 Blood Pressure 126/58 L 135/71 116/57 L Pulse Oximetry 95 95 94 L 08/10/18 20:44 08/10/18 21:50 08/11/18 00:55 Temperature 100.1 F H Pulse Rate 98 H Respiratory Rate 16 18 20 Blood Pressure 130/55 L Pulse Oximetry 94 L 08/11/18 01:30 08/11/18 04:50 Temperature 98.6 F Pulse Rate 64 Respiratory Rate 18 20 Blood Pressure 102/53 L Pulse Oximetry 97 Intake & Output 08/10/18 08/11/18 08/11/18 18:59 06:59 18:59 Intake Total 200 / 200 Output Total 1650 / 1650 1450 / 1450 Balance -1450 / -1450 -1450 / -1450 Weight 82.2 kg Intake: Anesthesia Amount 200 / 200 Output: Urine 850 / 850 Urine Amount (Catheter) 1650 / 1650 600 / 600 Suprapubic 1650 / 1650 600 / 600 Other: Date of Last Bowel Movement 08/10/18 08/10/18 - Constitutional no acute distress - Routine HEENT Exam Head: Present: normocephalic, atraumatic - Routine Respiratory Exam Absent: accessory muscle use - Routine Abdominal Exam Present: soft, normoactive bowel sounds. Absent: tenderness, distended - Routine Skin Exam Present: dry, warm - Urinary Catheter Management Indwelling Urethral Catheter Cath placed during this visit: yes, but has since been removed by the nurse Reason for continuing: Decision to DC catheter Insertion date: 08/05/18 Insertion time: 18:00 Removal date: 08/07/18 Removal time: 08:30 Suprapubic Cath placed during this visit: yes Reason for continuing: Gross Hematuria Insertion date: 08/03/18 3-way Urethral Cath placed during this visit: yes Reason for continuing: Gross Hematuria Insertion date: 08/03/18 <Jossie Whatley - Last Filed: 08/11/18 11:41> Vital signs: Vital Signs 08/10/18 17:08 08/10/18 20:09 08/10/18 20:44 Temperature 99.8 F H 98.3 F Pulse Rate 81 92 H Respiratory Rate 20 20 16 Blood Pressure 135/71 116/57 L Pulse Oximetry 95 94 L 08/10/18 21:50 08/11/18 00:55 08/11/18 01:30 Temperature 100.1 F H Pulse Rate 98 H Respiratory Rate 18 20 18 Blood Pressure 130/55 L Pulse Oximetry 94 L 08/11/18 04:50 Temperature 98.6 F Pulse Rate 64 Respiratory Rate 20 Blood Pressure 102/53 L Pulse Oximetry 97 Intake & Output 08/10/18 08/11/18 08/11/18 18:59 06:59 18:59 Intake Total 200 / 200 Output Total 1650 / 1650 1450 / 1450 Balance -1450 / -1450 -1450 / -1450 Weight 82.2 kg Intake: Anesthesia Amount 200 / 200 Output: Urine 850 / 850 Urine Amount (Catheter) 1650 / 1650 600 / 600 Suprapubic 1650 / 1650 600 / 600 Other: Date of Last Bowel Movement 08/10/18 08/10/18 - Urinary Catheter Management Indwelling Urethral Catheter Cath placed during this visit: no Suprapubic Cath placed during this visit: no 3-way Urethral Cath placed during this visit: no <Judith Austin - Last Filed: 08/11/18 15:44> Results - Labs CBC & Chem 7: 08/09/18 10:42 08/09/18 04:18 Laboratory Results - last 24 hr 08/09/18 04:18 Calcium 7.1 L* Microbiology 08/05/18 10:41 Blood - Peripheral Aerobic Blood Culture - Final No growth in 5 days 08/05/18 10:41 Blood - Peripheral Anaerobic Blood Culture - Final No growth in 5 days 08/05/18 08:30 Blood - Peripheral Aerobic Blood Culture - Final No growth in 5 days 08/05/18 08:30 Blood - Peripheral Anaerobic Blood Culture - Final No growth in 5 days - Procedures 08/03/2018 Cystoscopy with placement of suprapubic tube, cystogram 07/29/2018 Cystoscopy with fulguration of prostate bleeding <Jossie Whatley - Last Filed: 08/11/18 11:41> - Labs CBC & Chem 7: 08/09/18 10:42 08/09/18 04:18 Laboratory Results - last 24 hr 08/09/18 04:18 Calcium 7.1 L* <Judith Austin - Last Filed: 08/11/18 15:44> Assessment and Plan - Plan Assessment: - Rectal pain- for multiple months, states worse when he sits and stands up- located in his rectum as well as all over his buttocks. Denies any hematochezia or melena. Thinks he has hemorrhoids. Denies any straining with BMs, states has been having normal BMs, was taking Amitiza at home for opioid induced constipation. Having diarrhea today after receiving Lactulose for tremors. Agreeable to have flex sigmoidoscopy, but does not want colonoscopy. Also, discussed EGD and pt does not wish for this at this time. Last colonoscopy < [address] Brock, states normal exam. 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 Internal and external hemorrhoids. No clear etiology of rectal/buttocks pain seen on sigmoidoscopy, likely secondary to cancer. Continue Hydrocortisone supp and bowel regimen to prevent straining. Plan: Hydrocortisone supp Bowel regimen Pain control Continue current supportive care Our service will sign off, please reconsult as needed Pt has been seen and examined by myself and Dr. Austin and this note is written on his behalf <Jossie Whatley - Last Filed: 08/11/18 11:41> - Plan Seen and examined with [employer], S/P sigmoidoscopy. Hemorrhoids. Hydrocortisone supp 25mg NC bid. Does not want colonoscopy. GI will sign off. Thank you <Judith Austin - Last Filed: 08/11/18 15:44>
--- NOTE | 2018-08-11 13:42 | P.PNNP ---
Subjective Interval history: patient is having intermittent fever. Complains of shaking and back pain. Physical Exam Vital signs: Vital Signs 08/10/18 14:23 08/10/18 17:08 08/10/18 20:09 Temperature 96.9 F L 99.8 F H 98.3 F Pulse Rate 76 81 92 H Respiratory Rate 16 20 20 Blood Pressure 126/58 L 135/71 116/57 L Pulse Oximetry 95 95 94 L 08/10/18 20:44 08/10/18 21:50 08/11/18 00:55 Temperature 100.1 F H Pulse Rate 98 H Respiratory Rate 16 18 20 Blood Pressure 130/55 L Pulse Oximetry 94 L 08/11/18 01:30 08/11/18 04:50 Temperature 98.6 F Pulse Rate 64 Respiratory Rate 18 20 Blood Pressure 102/53 L Pulse Oximetry 97 Intake & Output 08/10/18 08/11/18 08/11/18 18:59 06:59 18:59 Intake Total 200 / 200 Output Total 1650 / 1650 1450 / 1450 Balance -1450 / -1450 -1450 / -1450 Weight 82.2 kg Intake: Anesthesia Amount 200 / 200 Output: Urine 850 / 850 Urine Amount (Catheter) 1650 / 1650 600 / 600 Suprapubic 1650 / 1650 600 / 600 Other: Date of Last Bowel Movement 08/10/18 08/10/18 Narrative: Chest: clear. RRR Suprapubic catheter. No edema. - Urinary Catheter Management Indwelling Urethral Catheter Cath placed during this visit: yes, but has since been removed by the nurse Reason for continuing: Decision to DC catheter Insertion date: 08/05/18 Insertion time: 18:00 Removal date: 08/07/18 Removal time: 08:30 Suprapubic Cath placed during this visit: yes Reason for continuing: Gross Hematuria Insertion date: 08/03/18 3-way Urethral Cath placed during this visit: yes Reason for continuing: Gross Hematuria Insertion date: 08/03/18 Assessment and Plan - Assessment (1) Acute on chronic kidney failure Code(s): N17.9 - Acute kidney failure, unspecified; N18.9 - Chronic kidney disease, unspecified Status: Acute Plan: patient's renal function is stable, this may be a new baseline. Monitor. Avoid nephrotoxic agents. Monitor urine output. Repeat labs. Labs from today not available. (2) Gross hematuria Code(s): R31.0 - Gross hematuria Status: Acute Plan: Urology following. Possible bleeding from prostate. May have prostatitis. Underwent suprapubic catheter placement. Being followed by Oncology and urology. (3) Prostate cancer metastatic to bone Code(s): C61 - Malignant neoplasm of prostate; C79.51 - Secondary malignant neoplasm of bone Status: Acute Plan: Hematology/Oncology note has been reviewed. (4) Acute UTI Code(s): N39.0 - Urinary tract infection, site not specified Status: Acute Plan: Possible prostatitis. ID on the case. Zosyn has been stopped. (5) Fever Code(s): R50.9 - Fever, unspecified Status: Acute Plan: Sigmoidoscopy yesterday, diverticulitis noted. ID on the case.
[2018-08-11 16:08] LABS: Baso % (Auto) 0.4 % (0.0-2.0); Eos # (Auto) 0.1 th/mm3 (0.0-0.4); Eos % (Auto) 0.5 % (0.0-4.0); Hematocrit 25.9 % (39.0-51.0); Hemoglobin 8.8 gm/dL (13.0-17.0); Lymph # (Auto) 0.6 th/mm3 (1.0-4.8); Lymph % (Auto) 5.9 % (9.0-44.0); Mean Corpuscular HGB Conc 34.1 % (32.0-36.0); Mean Corpuscular Hemoglobin 31.1 pg (27.0-34.0); Mean Corpuscular Volume 91.2 fL (80.0-100.0); Mean Platelet Volume 6.8 fL (7.0-11.0); Mono # (Auto) 1.1 th/mm3 (0.0-0.9); Mono % (Auto) 10.3 % (0.0-8.0); Neut # (Auto) 8.5 th/mm3 (1.8-7.7); Neut % (Auto) 82.9 % (16.0-70.0); Platelet Count 330 th/mm3 (150-450); Red Blood Count 2.84 mil/mm3 (4.50-5.90); Red Cell Distribution Width 15.2 % (11.6-17.2); White Blood Count 10.2 th/mm3 (4.0-11.0)
[2018-08-11] MEDS ORDERED: Methylnaltrexone Inj 12 MG/0.6 ML Vial SQ ONE (16:12)
--- NOTE | 2018-08-11 16:18 | P.PN ---
Subjective Interval history: Nursing reports patient still having the pain. Bulk of pain seems to be in his lower back. Still having fevers. Physical Exam Vital signs: Vital Signs 08/10/18 17:08 08/10/18 20:09 08/10/18 20:44 Temperature 99.8 F H 98.3 F Pulse Rate 81 92 H Respiratory Rate 20 20 16 Blood Pressure 135/71 116/57 L Pulse Oximetry 95 94 L 08/10/18 21:50 08/11/18 00:55 08/11/18 01:30 Temperature 100.1 F H Pulse Rate 98 H Respiratory Rate 18 20 18 Blood Pressure 130/55 L Pulse Oximetry 94 L 08/11/18 04:50 Temperature 98.6 F Pulse Rate 64 Respiratory Rate 20 Blood Pressure 102/53 L Pulse Oximetry 97 Intake & Output 08/10/18 08/11/18 08/11/18 18:59 06:59 18:59 Intake Total 200 / 200 Output Total 1650 / 1650 1450 / 1450 Balance -1450 / -1450 -1450 / -1450 Weight 82.2 kg Intake: Anesthesia Amount 200 / 200 Output: Urine 850 / 850 Urine Amount (Catheter) 1650 / 1650 600 / 600 Suprapubic 1650 / 1650 600 / 600 Other: Date of Last Bowel Movement 08/10/18 08/10/18 - Urinary Catheter Management Indwelling Urethral Catheter Cath placed during this visit: yes, but has since been removed by the nurse Reason for continuing: Decision to DC catheter Insertion date: 08/05/18 Insertion time: 18:00 Removal date: 08/07/18 Removal time: 08:30 Suprapubic Cath placed during this visit: yes Reason for continuing: Gross Hematuria Insertion date: 08/03/18 3-way Urethral Cath placed during this visit: yes Reason for continuing: Gross Hematuria Insertion date: 08/03/18 Results - Labs CBC & Chem 7: 08/11/18 15:36 08/09/18 04:18 Laboratory Results - last 24 hr 08/11/18 15:36 WBC 10.2 RBC 2.84 L Hgb 8.8 L Hct 25.9 L MCV 91.2 MCH 31.1 MCHC 34.1 RDW 15.2 Plt Count 330 MPV 6.8 L Neut % (Auto) 82.9 H Lymph % (Auto) 5.9 L Blount % (Auto) 10.3 H Eos % (Auto) 0.5 Baso % (Auto) 0.4 Neut # (Auto) 8.5 H Lymph # (Auto) 0.6 L Blount # (Auto) 1.1 H Eos # (Auto) 0.1 Baso # (Auto) 0.0 WBC Differential . Differential Comment Auto diff final - Procedures 08/03/2018 Cystoscopy with placement of suprapubic tube, cystogram 07/29/2018 Cystoscopy with fulguration of prostate bleeding Assessment and Plan - Assessment (1) Acute UTI Code(s): N39.0 - Urinary tract infection, site not specified Status: Acute (2) Prostate cancer metastatic to bone Code(s): C61 - Malignant neoplasm of prostate; C79.51 - Secondary malignant neoplasm of bone Status: Acute - Plan Mr. Queen is a pleasant 73-year-old male with a history of metastatic prostate carcinoma who was admitted to the hospital due to fever, hematuria and pelvic pain. Infectious disease as well as oncology and urology have been following patient. Patient is currently on levofloxacin and meropenem. His hemodynamic status is stable but is still spiking low-grade fevers. Recurrent fevers - Still persistent; less severe. Thought to be due to prostatitis, but now seems to be more like FUO. CMV PCR is negative. -Discontinued off of antibiotics and monitoring per infectious disease - Sigmoidoscopy unremarkable for any obvious source. - Ordering CT lumbar spine without contrast given renal impairment to look for any other obvious source. Rectal pain -Likely secondary to external hemorrhoids, sigmoidoscopy is otherwise unremarkable except for diverticulosis. Back pain -possibly compounded with constipation (individually with a CT scan and see copious amounts of stool close), will give dose of Relistor. Ordering CT scan without contrast given renal impairment. Persistent hematuria Bilateral hydronephrosis on ultrasound left greater than right -Radiation oncology is planning treatments. -Suprapubic catheter placement on 08/03/2018. Acute post-hemorrhagic anemia due to Genitourinary tract bleeding. -Two units of PRBCs on 08/02/2018. Metastatic prostate carcinoma -Oncology is following. Patient is has had good response to leuprolide and Enzalutamide (Xtandi). -Thorough discussion with palliative care, further recommendations I would discontinue oxycodone since the patient has not had significant relief with it over the past few months and instead switch over to a fentanyl patch 25 mcg and up titrate. We will then give him as needed oral Dilaudid and as needed IV Dilaudid for breakthrough pain. Goals of care are to still try to get over the fever and eventually go home, but remain DNR. Hypocalcemia Acute kidney injury on Chronic kidney disease -Nephrology is following. Creatinine hovering around 2.2-2.3. -Stabilized Acute prostatitis -Completed regimen per ID Full code. Ambulation. Pharmacological DVT prophylaxis contraindicated at this point. Discharge Planning: DC when fevers have stopped or when ID clears pt. Pt wants to return home, not go to SNF. Pt and going back and forth on option for hospice. Order placed for consult.
--- NOTE | 2018-08-11 16:41 | P.PNID ---
Subjective Remarks: cont to have chills and fevers T max <101F cont to have pain in rectum, back Just hemorroids on flex sig CMV undetectable Off abx since yday Antibiotics: zosyn -stoppped Past Medical History: Hep B Hypertension Kidney disease Prostate cancer with bone mets S/P hip surgery Allergies/Adverse Reactions: Allergies morphine Allergy (Severe, Verified 07/22/18 11:48) MORPHINE ALLERGY ADDED 12/19/07 @1500 - N/V Objective Vital Signs 08/10/18 17:08 08/10/18 20:09 08/10/18 20:44 Temperature 99.8 F H 98.3 F Pulse Rate 81 92 H Respiratory Rate 20 20 16 Blood Pressure 135/71 116/57 L Pulse Oximetry 95 94 L 08/10/18 21:50 08/11/18 00:55 08/11/18 01:30 Temperature 100.1 F H Pulse Rate 98 H Respiratory Rate 18 20 18 Blood Pressure 130/55 L Pulse Oximetry 94 L 08/11/18 04:50 Temperature 98.6 F Pulse Rate 64 Respiratory Rate 20 Blood Pressure 102/53 L Pulse Oximetry 97 Intake & Output 08/10/18 08/11/18 08/11/18 18:59 06:59 18:59 Intake Total 200 / 200 Output Total 1650 / 1650 1450 / 1450 Balance -1450 / -1450 -1450 / -1450 Weight 82.2 kg Intake: Anesthesia Amount 200 / 200 Output: Urine 850 / 850 Urine Amount (Catheter) 1650 / 1650 600 / 600 Suprapubic 1650 / 1650 600 / 600 Other: Date of Last Bowel Movement 08/10/18 08/10/18 08/05/18 10:41 Blood - Peripheral Aerobic Blood Culture - Final No growth in 5 days 08/05/18 10:41 Blood - Peripheral Anaerobic Blood Culture - Final No growth in 5 days 08/05/18 08:30 Blood - Peripheral Aerobic Blood Culture - Final No growth in 5 days 08/05/18 08:30 Blood - Peripheral Anaerobic Blood Culture - Final No growth in 5 days Lab - Hematology Results 08/11/18 15:36 WBC 10.2 RBC 2.84 L Hgb 8.8 L Hct 25.9 L MCV 91.2 MCH 31.1 MCHC 34.1 RDW 15.2 Plt Count 330 MPV 6.8 L Neut % (Auto) 82.9 H Lymph % (Auto) 5.9 L Loving % (Auto) 10.3 H Eos % (Auto) 0.5 Baso % (Auto) 0.4 Neut # (Auto) 8.5 H Lymph # (Auto) 0.6 L Loving # (Auto) 1.1 H Eos # (Auto) 0.1 Baso # (Auto) 0.0 WBC Differential . Differential Comment Auto diff final Lab - Chemistry Results 08/09/18 04:18 Calcium 7.1 L* Imaging: ITS Impressions Chest X-Ray 07/22/18 11:00 CONCLUSION: The lungs are grossly clear. Sclerotic metastatic disease. Abdomen/Bladder Ultrasound 07/23/18 00:00 CONCLUSION: 1. Significant debris within the bladder likely blood. Mild bilateral hydronephrosis left greater than right. Abdomen/Pelvis CT 07/24/18 00:00 CONCLUSION: 1. Abnormal bladder with increased density consistent with blood products and/ or tumor. A Engel catheter is present with a small amount of air. 2. New mild to moderate bilateral hydronephrosis. Small bilateral pleural effusions right greater than left. 3. Extensive sclerotic metastatic disease with interval progression. Physical Exam: GENERAL: Shevering and in pain awake and alert. SKIN: Warm and dry. No rash HEAD: Atraumatic. Normocephalic. EYES: Pupils equal and round. No scleral icterus. No injection or drainage. ENT: No nasal bleeding or discharge. Mucous membranes pink and moist. CARDIOVASCULAR: Regular rate and rhythm. RESPIRATORY: No accessory muscle use. Clear to auscultation. Breath sounds equal bilaterally. GASTROINTESTINAL: Abdomen soft, tender to palpation in lower quadrants w/o guarding or rebound SPC site with on going leaking around it lMUSCULOSKELETAL: Extremities without clubbing, cyanosis, No calf tenderness. +1 soft pitting edema NEUROLOGICAL: awake, alert No obvious cranial nerve deficits. Motor grossly within normal limits. Five out of 5 muscle strength in the arms and legs. Normal speech. PSYCHIATRIC: calm, cooperative Assessment and Plan - Plan Impression Metastatic prostate cancer FUO (6 weeks) - likley from cancer Hematuria Probably UTI - Staph epi not a typical pathogen GENI - slighly better Persistent fever and rectal pain - proctitis? Recommendation cont off abx Follow new C/S fu P blood clx, WBC and temps watch for tother s/o infection. In that case will resume abx and w/u will do serial procalcitonine dw RN dw pt and his
--- NOTE | 2018-08-11 17:02 | CT ---
EXAM DATE: 08/11/2018 4:16 PM EDT AGE/SEX: 73 years / Male INDICATIONS: Fever and back pain. CLINICAL DATA: This is the patient's initial encounter. Patient reports that signs and symptoms have been present for 1 day and indicates a pain score of 5/10. MEDICAL/SURGICAL HISTORY: Carcinoma, prostatic. Carcinoma, bone. Hepatitis B. Renal disease. Hy pertension. Cholecystectomy. Bilateral femur surgery. RADIATION DOSE: 41.03 CTDI (mGy) COMPARISON: [facility], MR LUMBAR SPINE W/O CONTRAST, 05/25/2017. [facility], CT ABDOMEN & PELVIS W/O CONTRAST , 07/24/2018. . TECHNIQUE: Contiguous axial images were acquired with a multirow detector CT scanner without contras t. Multiplanar reconstructions in the sagittal and coronal plane were also performed. Using automate d exposure control and adjustment of the mA and/or kV according to patient size, radiation dose was k ept as low as reasonably achievable to obtain optimal diagnostic quality images. DICOM format image data is available electronically for review and comparison. FINDINGS: Vertebrae: No fracture or compression deformity. There are innumerable sclerotic bone lesions throu ghout all of the vertebral levels within the visualized sacrum. Alignment: No anterolisthesis or retrolisthesis. There is a levoscoliosis of the inferior lumbar spi ne. Right lateral subluxation is present at L1 on L2. T12-L1: No disc herniation, canal stenosis, or neural foraminal stenosis. L1-L2: Decreased disc height with endplate osteophytes, largest on the left side. A diffuse disc bul ge is present. No spinal canal stenosis or right neural foraminal narrowing is present. There is mode rate left neural foraminal stenosis. Findings appear similar to the prior exam. L2-L3: Decreased disc height with endplate osteophytes. There is a mild diffuse disc bulge. There is a mild to moderate left neural foraminal stenosis. Findings at this level appear stable. L3-L4: There is a diffuse disc bulge with mild facet hypertrophy. No spinal canal stenosis or signif icant neural foraminal narrowing is appreciated. L4-L5: There is a diffuse disc bulge with mild facet hypertrophy. No spinal canal stenosis is presen t. There is mild right neural foraminal narrowing. Findings at this level are stable. L5-S1: Minimal diffuse disc bulge with bilateral facet hypertrophy. No spinal canal stenosis or neur al foraminal stenosis is identified. Other: There is bilateral distal hydroureter and likely hydronephrosis. Atherosclerotic changes are p resent within the abdominal aorta. CONCLUSION: 1. Diffuse sclerotic bone lesions throughout the visualized spine and sacrum. Findings are character istic of osseous metastatic disease related to the patient's prostate cancer. 2. There are mild degenerative changes throughout the lumbar spine with scoliosis. No spinal canal s tenosis is identified. There are areas of mild to moderate neural foraminal narrowing, as above. 3. Chronic mild bilateral hydronephrosis and hydroureter. These findings appear similar to the 2017 examination. Electronically signed by: Joe Parham MD 08/11/2018 5:00 PM EDT
[2018-08-11] MEDS: Latanoprost 0.005% Opth Drops 2.5 ML Bottle EACH EYE SCH (20:50)
[2018-08-12 07:52] LABS: Albumin 1.7 g/dL (3.4-5.0); Carbon Dioxide 29.3 meq/L (21.0-32.0); Phosphorus 2.6 mg/dL (2.5-4.9)
[2018-08-12 07:56] LABS: Calcium 7.4 mg/dL (8.5-10.1); Potassium 2.9 meq/L (3.5-5.1)
[2018-08-12] MEDS: Docusate Sodium 100 MG Capsule PO SCH ×3 (09:01→18:35)
[2018-08-12] MEDS: Gabapentin 300 MG Capsule PO SCH ×2 (09:01→21:05)
[2018-08-12] MEDS: Calcium Carbonate 500 MG Tablet PO SCH ×2 (09:01→21:05)
[2018-08-12] MEDS: buPROPion 150 MG XL 24 HR Tablet PO SCH (09:01)
[2018-08-12] MEDS: Folic Acid 1 MG Tablet PO SCH (09:01)
[2018-08-12] MEDS: Tolterodine Tartrate LA 4 MG Capsule PO SCH (09:02)
[2018-08-12] MEDS: Lidocaine 5% Patch T-DERMAL SCH (09:02)
--- NOTE | 2018-08-12 10:54 | P.PNONC ---
Subjective Interval history: T-max 101.5 F. Patient lying in bed, states he is feeling much better. He reports his pain is currently controlled down to a 4 out of 10. He denies any bleeding. Suprapubic catheter draining clear yellow urine. Patient states he has been refusing lactulose due to it causing an episode of diarrhea when he took it. He reports large formed bowel movement yesterday. Objective Vital Signs/Intake & Output: Vital Signs 08/11/18 12:00 08/11/18 16:00 08/11/18 20:35 Temperature 97.7 F 101.5 F H 98 F Pulse Rate 76 87 69 Respiratory Rate 20 16 18 Blood Pressure 130/70 130/70 102/47 L Pulse Oximetry 98 96 95 08/11/18 21:20 08/12/18 00:46 08/12/18 01:20 Temperature 97.6 F Pulse Rate 68 Respiratory Rate 16 18 16 Blood Pressure 118/62 Pulse Oximetry 97 08/12/18 04:52 08/12/18 05:28 08/12/18 08:00 Temperature 98.4 F 98.3 F Pulse Rate 79 86 Respiratory Rate 18 16 18 Blood Pressure 125/62 123/62 Pulse Oximetry 96 93 L Intake & Output 08/11/18 08/12/18 08/12/18 18:59 06:59 18:59 Intake Total 1200 / 1200 Output Total 1300 / 1300 1750 / 1750 Balance -100 / -100 -1750 / -1750 Weight 81 kg Intake: Oral 1200 / 1200 Output: Urine 1300 / 1300 Urine Amount (Catheter) 1750 / 1750 Suprapubic 1750 / 1750 Other: Date of Last Bowel Movement 08/11/18 08/11/18 Result Diagrams: 08/11/18 15:36 08/12/18 05:45 Laboratory Results: Laboratory Results - last 24 hr 08/11/18 08/11/18 08/12/18 15:36 17:20 05:45 WBC 10.2 RBC 2.84 L Hgb 8.8 L Hct 25.9 L MCV 91.2 MCH 31.1 MCHC 34.1 RDW 15.2 Plt Count 330 MPV 6.8 L Neut % (Auto) 82.9 H Lymph % (Auto) 5.9 L [place] % (Auto) 10.3 H Eos % (Auto) 0.5 Baso % (Auto) 0.4 Neut # (Auto) 8.5 H Lymph # (Auto) 0.6 L [place] # (Auto) 1.1 H Eos # (Auto) 0.1 Baso # (Auto) 0.0 WBC Differential . Differential Comment Auto diff final Sodium 145 Potassium 2.9 L* Chloride 108 H Carbon Dioxide 29.3 Anion Gap 8 BUN 28 H Creatinine 1.90 H Estimated GFR 35 L Random Glucose 102 Calcium 7.4 L* Phosphorus 2.6 Albumin 1.7 L Procalcitonin 0.56 H Culture Results: Microbiology 08/05/18 10:41 Aerobic Blood Culture - Final Blood - Peripheral No growth in 5 days Anaerobic Blood Culture - Final No growth in 5 days 08/05/18 08:30 Aerobic Blood Culture - Final Blood - Peripheral No growth in 5 days Anaerobic Blood Culture - Final No growth in 5 days Imaging Studies: Impressions Lumbar Spine CT 08/11/18 00:00 CONCLUSION: 1. Diffuse sclerotic bone lesions throughout the visualized spine and sacrum. Findings are characteristic of osseous metastatic disease related to the patient 's prostate cancer. 2. There are mild degenerative changes throughout the lumbar spine with scoliosis. No spinal canal stenosis is identified. There are areas of mild to moderate neural foraminal narrowing, as above. 3. Chronic mild bilateral hydronephrosis and hydroureter. These findings appear similar to the 07/24/2018 examination. Medications: Active Medications Generic Name Dose Route Start Last Admin Trade Name Freq PRN Reason Stop Dose Admin Acetaminophen 650 mg 07/22/18 13:55 08/11/18 15:42 Tylenol PO 650 mg Q4H PRN Administration fever Acetaminophen 650 mg 07/29/18 08:29 08/01/18 20:35 Tylenol PO 650 mg Q4H PRN Administration SEE LABEL COMMENTS Belladonna Alkaloids/Opium 60 mg 08/02/18 15:30 08/06/18 13:53 B & O Supp RECTAL 60 mg Q6HR PRN Administration BLADDER SPASM Bupropion HCl 150 mg 07/22/18 14:00 08/12/18 09:01 Wellbutrin Xl PO 150 mg DAILY MILDRED Administration Sodium Chloride 3,000 ml/ 0 ml 07/29/18 23:03 08/06/18 13:28 Aminocaproic Acid 3,000 mg IRRIGATION 3,000 irrig.soln Q24H PRN Administration TO KEEP URINE CLEAR Diazepam 5 mg 07/22/18 13:57 08/10/18 21:21 Valium PO 5 mg DAILY PRN Administration Anxiety Docusate Sodium 100 mg 07/25/18 15:45 08/12/18 09:01 Colace PO 100 mg TID MILDRED Administration Fentanyl 1 patch 08/11/18 17:00 08/11/18 18:12 Duragesic 25 Mcg Patch.72hr T-DERMAL 1 patch Q3D MILDRED Administration Folic Acid 1 mg 07/24/18 12:00 08/12/18 09:01 Folic Acid PO 1 mg DAILY MILDRED Administration Gabapentin 300 mg 07/23/18 21:00 08/12/18 09:01 Neurontin PO 300 mg BID MILDRED Administration Hydrocortisone Acetate 1 applicatio 08/06/18 18:00 08/12/18 09:07 Anusol-Hc RECTAL 1 applicatio TID MILDRED Administration Hydromorphone HCl 0.5 mg 07/26/18 19:30 08/11/18 10:05 Dilaudid Pf Inj IV.PUSH 0.5 mg Q4H PRN Administration BREAKTHROUGH PAIN Hydromorphone HCl 1 mg 08/11/18 16:12 08/12/18 04:58 Dilaudid PO 1 mg Q4H PRN Administration pain 1-10 Lactulose 30 ml 08/07/18 09:00 08/12/18 09:16 Lactulose Liq PO Not Given BID MILDRED Latanoprost 1 drop 07/22/18 21:00 08/11/18 20:50 Xalatan 0.005% Opth Drops EACH EYE 1 drop HS MILDRED Administration Lidocaine HCl 1 applicatio 08/05/18 17:15 08/05/18 20:46 Xylocaine 5% Oint TOPICAL 1 applicatio Q8H PRN Administration Acute Pain Lidocaine HCl 1 patch 08/06/18 15:00 08/12/18 09:02 Lidoderm 5% Patch.12 Hr T-DERMAL 1 patch DAILY MILDRED Administration Patch Removal 1 each 08/06/18 21:00 08/11/18 20:40 Remove Old Patch T-DERMAL 1 each HS MILDRED Administration Tenofovir Disoproxil Fumarate 300 mg 07/24/18 09:00 08/11/18 09:48 Viread PO 300 mg EVERY OTHER DAY MILDRED Administration Tolterodine Tartrate 4 mg 07/24/18 13:00 09/29/18 09:02 Detrol La PO 4 mg DAILY MILDRED Administration Vitamin D 2,000 unit 07/25/18 09:00 08/12/18 09:01 Vitamin D3 PO 2,000 unit DAILY MILDRED Administration Objective Remarks: GENERAL: Elderly male patient, lying in bed, no acute distress. SKIN: Warm and dry.+Flushed cheeks. HEAD: Normocephalic. EYES: No scleral icterus. No injection or drainage. NECK: Supple, trachea midline. CARDIOVASCULAR: Regular rate and rhythm without murmurs. RESPIRATORY: Breath sounds equal bilaterally. No accessory muscle use. GASTROINTESTINAL: Abdomen soft, non-tender, nondistended. + Suprapubic cath- draining clear/yellow urine. EXTREMITIES: No cyanosis, or edema. +DP pulses. MUSCULOSKELETAL: Adequate muscle tone. NEUROLOGICAL: No obvious focal deficit. Awake, alert, and oriented x3. PSYCHIATRIC: Appropriate mood and affect; insight and judgment normal. Assessment/Plan - Plan Mr. Queen Is a 73-year-old man with a diagnosis of metastatic prostate carcinoma , he has had an excellent response to combination therapy consisting of leuprolide and Xtandi. His PSA levels have been less than 0.1 ng/dL over the past several months. He has extensive metastatic disease burden involving his axial skeleton especially his pelvis. Most recent PET CT scan revealed most of his previously active metastatic disease to be dormant, he however had intense hypermetabolic activity localized to the prostate and to the bladder. In late June he underwent cystoscopy for workup of hematuria with his former urologist Dr. Parmar, no obvious cause for hematuria was identified. He is now in the hospital with fevers, hematuria and pelvic pain. Clinically he has suspected prostatitis and is on broad-spectrum antibiotics with Zosyn and levofloxacin. Urine cultures and blood cultures are negative thus far other than forced staph epidermidis. CT scan of the abdomen/pelvis revealed no obvious cause for the hematuria. Recommendations: 1. Febrile illness: T-max 101.5 F. Infectious disease is following. Antibiotics have been discontinued, concern for antibiotic related fevers. Continue to monitor for signs and symptoms of infection. 2. Hematuria: Resolved. Radiation to prostate started on 08/07. Suprapubic catheter draining clear yellow urine. 3. Pain control, continue long and short acting opioids. Monitor for oversedation. Continue Anusol-Hc for rectal pain. 4. Metastatic prostate carcinoma, PSA less than 0.1; plans to resume Xtandi upon discharge from the hospital. 5. Anemia: Hemoglobin stable, has increased to 8.8 g/dL. 6. Asterixis, hepatic encephalopathy related to chronic hep B. Lactulose has been prescribed, however patient states that he has been refusing due to it causing diarrhea. - Attending Statement The exam, history, and the medical decision-making described in the above note were completed with the assistance of the mid-level provider. I reviewed and agree with the findings presented. I attest that I had a [id number] encounter with the patient on the same day, and personally performed and documented my assessment and findings in the medical record. The pain in the back and pelvis is diminished today. His last temperature was approximately 24 hours ago and hopefully we will not see a recurrence. His asked me a number of questions regarding his prostate cancer. His PSA is not measurable and this would imply that the cancer is under excellent control unless he is 1 of those rare individuals who has an aggressive poorly differentiated cancer which progresses while the PSA does not move with the progression of the cancer. She had a number of other questions that I was not able to answer. She will speak with Dr. Gant on Tuesday. Hopefully he will remain afebrile off antibiotics.
--- NOTE | 2018-08-12 10:56 | P.PNNP ---
Subjective Interval history: Patient with no complaints. Denies any shortness of breath, chest pain, nausea , or vomiting. Creatinine improving at 1.90 today. <RollyLindaSaira - Last Filed: 08/12/18 10:47> Physical Exam Vital signs: Vital Signs 08/11/18 12:00 08/11/18 16:00 08/11/18 20:35 Temperature 97.7 F 101.5 F H 98 F Pulse Rate 76 87 69 Respiratory Rate 20 16 18 Blood Pressure 130/70 130/70 102/47 L Pulse Oximetry 98 96 95 08/11/18 21:20 08/12/18 00:46 08/12/18 01:20 Temperature 97.6 F Pulse Rate 68 Respiratory Rate 16 18 16 Blood Pressure 118/62 Pulse Oximetry 97 08/12/18 04:52 08/12/18 05:28 08/12/18 08:00 Temperature 98.4 F 98.3 F Pulse Rate 79 86 Respiratory Rate 18 16 18 Blood Pressure 125/62 123/62 Pulse Oximetry 96 93 L Intake & Output 08/11/18 08/12/18 08/12/18 18:59 06:59 18:59 Intake Total 1200 / 1200 Output Total 1300 / 1300 1750 / 1750 Balance -100 / -100 -1750 / -1750 Weight 81 kg Intake: Oral 1200 / 1200 Output: Urine 1300 / 1300 Urine Amount (Catheter) 1750 / 1750 Suprapubic 1750 / 1750 Other: Date of Last Bowel Movement 08/11/18 08/11/18 Narrative: GENERAL: Alert and oriented. NAD SKIN: Pale, warm and dry. CARDIOVASCULAR: Regular rate and rhythm without murmurs. RESPIRATORY: Breath sounds equal bilaterally. No accessory muscle use. GASTROINTESTINAL: Soft, nontender, positive bowel sounds. GENITOURINARY: Suprapubic catheter in place. EXTREMITIES: No cyanosis, no edema MUSCULOSKELETAL: Generally decreased muscle mass. - Urinary Catheter Management Indwelling Urethral Catheter Cath placed during this visit: yes, but has since been removed by the nurse Reason for continuing: Decision to DC catheter Insertion date: 08/05/18 Insertion time: 18:00 Removal date: 08/07/18 Removal time: 08:30 Suprapubic Cath placed during this visit: yes Reason for continuing: Terminally ill/Comfort care Insertion date: 08/03/18 3-way Urethral Cath placed during this visit: yes Reason for continuing: Gross Hematuria Insertion date: 08/03/18 <Saira Lofton - Last Filed: 08/12/18 10:47> Vital signs: Vital Signs 08/12/18 16:15 08/12/18 20:00 08/13/18 00:00 Temperature 99.2 F 101.0 F H 98.8 F Pulse Rate 87 82 65 Respiratory Rate 20 13 16 Blood Pressure 121/73 129/72 121/65 Pulse Oximetry 94 L 93 L 94 L 08/13/18 04:00 08/13/18 10:23 Temperature 98.1 F 98.4 F Pulse Rate 63 81 Respiratory Rate 14 16 Blood Pressure 123/67 139/75 Pulse Oximetry 98 98 Intake & Output 08/12/18 08/13/18 08/13/18 18:59 06:59 18:59 Intake Total 662 / 662 480 / 480 Output Total 1400 / 1400 1550 / 1550 Balance -738 / -738 -1070 / -1070 Weight 80 kg Intake: Oral 662 / 662 480 / 480 Output: Urine 1550 / 1550 Urine Amount (Catheter) 1400 / 1400 Suprapubic 1400 / 1400 Other: Date of Last Bowel Movement 08/11/18 08/12/18 - Urinary Catheter Management Indwelling Urethral Catheter Cath placed during this visit: no Suprapubic Cath placed during this visit: no 3-way Urethral Cath placed during this visit: no <Neeraj Melendez - Last Filed: 08/13/18 12:38> Assessment and Plan - Assessment (1) Acute on chronic kidney failure Code(s): N17.9 - Acute kidney failure, unspecified; N18.9 - Chronic kidney disease, unspecified Status: Acute Plan: Patient's renal function remains stable Creatinine has improved at 1.90 today Continue to Avoid nephrotoxic agents. Follow urine output and labs. (2) Gross hematuria Code(s): R31.0 - Gross hematuria Status: Acute Plan: Urology following. Possible bleeding from prostate. May have prostatitis. Underwent suprapubic catheter placement. Being followed by Oncology and urology. (3) Prostate cancer metastatic to bone Code(s): C61 - Malignant neoplasm of prostate; C79.51 - Secondary malignant neoplasm of bone Status: Acute Plan: Hematology/Oncology. (4) Acute UTI Code(s): N39.0 - Urinary tract infection, site not specified Status: Acute Plan: Possible prostatitis. ID on the case. Antibiotics discontinued. (5) Fever Code(s): R50.9 - Fever, unspecified Status: Acute Plan: Sigmoidoscopy yesterday, diverticulitis noted. ID on the case. <Saira Lofton - Last Filed: 08/12/18 10:47> - Assessment (1) Acute on chronic kidney failure Code(s): N17.9 - Acute kidney failure, unspecified; N18.9 - Chronic kidney disease, unspecified Status: Acute Plan: Patient seen and examined, agree with above. Creatinine is almost same, K was low and replaced. (2) Gross hematuria Code(s): R31.0 - Gross hematuria Status: Acute (3) Prostate cancer metastatic to bone Code(s): C61 - Malignant neoplasm of prostate; C79.51 - Secondary malignant neoplasm of bone Status: Acute (4) Acute UTI Code(s): N39.0 - Urinary tract infection, site not specified Status: Acute (5) Fever Code(s): R50.9 - Fever, unspecified Status: Acute <Neeraj Melendez - Last Filed: 08/13/18 12:38>
--- NOTE | 2018-08-12 11:57 | P.PNIM ---
Subjective Interval history: 73-year-old male with a history of metastatic prostate cancer. He states his last fever was yesterday. He has had no fevers today. He had a bowel movement yesterday. Physical Exam Vital signs: Vital Signs 08/11/18 12:00 08/11/18 16:00 08/11/18 20:35 Temperature 97.7 F 101.5 F H 98 F Pulse Rate 76 87 69 Respiratory Rate 20 16 18 Blood Pressure 130/70 130/70 102/47 L Pulse Oximetry 98 96 95 08/11/18 21:20 08/12/18 00:46 08/12/18 01:20 Temperature 97.6 F Pulse Rate 68 Respiratory Rate 16 18 16 Blood Pressure 118/62 Pulse Oximetry 97 08/12/18 04:52 08/12/18 05:28 08/12/18 08:00 Temperature 98.4 F 98.3 F Pulse Rate 79 86 Respiratory Rate 18 16 18 Blood Pressure 125/62 123/62 Pulse Oximetry 96 93 L Intake & Output 08/11/18 08/12/18 08/12/18 18:59 06:59 18:59 Intake Total 1200 / 1200 Output Total 1300 / 1300 1750 / 1750 Balance -100 / -100 -1750 / -1750 Weight 81 kg Intake: Oral 1200 / 1200 Output: Urine 1300 / 1300 Urine Amount (Catheter) 1750 / 1750 Suprapubic 1750 / 1750 Other: Date of Last Bowel Movement 08/11/18 08/11/18 Narrative: GENERAL: AAOx3, no acute distress, generally weak SKIN: Warm and dry. No rashes HEAD: Atruamtic, normocephalic. EYES: No scleral icterus. No injection or drainage. ENT: Moist mucous membranes, patent nares, no erythema of oropharynx. NECK: Supple, trachea midline. No JVD or lymphadenopathy. Normal thyroid. CARDIOVASCULAR: Regular rate and rhythm. No murmurs, gallops, or rubs. RESPIRATORY: Breath sounds clear equal bilaterally. No crackles or wheezes. No accessory muscle use. GASTROINTESTINAL: Abdomen soft, non-tender, nondistended, normal active bowel sounds MUSCULOSKELETAL: No cyanosis, or edema. NEURO: CN II-XII grossly intact, no focal deficits, no slurring of speech - Urinary Catheter Management Indwelling Urethral Catheter Cath placed during this visit: yes, but has since been removed by the nurse Reason for continuing: Decision to DC catheter Insertion date: 08/05/18 Insertion time: 18:00 Removal date: 08/07/18 Removal time: 08:30 Suprapubic Cath placed during this visit: yes Reason for continuing: Terminally ill/Comfort care Insertion date: 08/03/18 3-way Urethral Cath placed during this visit: yes Reason for continuing: Gross Hematuria Insertion date: 08/03/18 Results - Labs CBC & Chem 7: 08/11/18 15:36 08/12/18 05:45 Laboratory Results - last 24 hr 08/11/18 08/11/18 08/12/18 15:36 17:20 05:45 WBC 10.2 RBC 2.84 L Hgb 8.8 L Hct 25.9 L MCV 91.2 MCH 31.1 MCHC 34.1 RDW 15.2 Plt Count 330 MPV 6.8 L Neut % (Auto) 82.9 H Lymph % (Auto) 5.9 L [place] % (Auto) 10.3 H Eos % (Auto) 0.5 Baso % (Auto) 0.4 Neut # (Auto) 8.5 H Lymph # (Auto) 0.6 L [place] # (Auto) 1.1 H Eos # (Auto) 0.1 Baso # (Auto) 0.0 WBC Differential . Differential Comment Auto diff final Sodium 145 Potassium 2.9 L* Chloride 108 H Carbon Dioxide 29.3 Anion Gap 8 BUN 28 H Creatinine 1.90 H Estimated GFR 35 L Random Glucose 102 Calcium 7.4 L* Phosphorus 2.6 Albumin 1.7 L Procalcitonin 0.56 H - Imaging Impressions Lumbar Spine CT 08/11/18 00:00 CONCLUSION: 1. Diffuse sclerotic bone lesions throughout the visualized spine and sacrum. Findings are characteristic of osseous metastatic disease related to the patient 's prostate cancer. 2. There are mild degenerative changes throughout the lumbar spine with scoliosis. No spinal canal stenosis is identified. There are areas of mild to moderate neural foraminal narrowing, as above. 3. Chronic mild bilateral hydronephrosis and hydroureter. These findings appear similar to the 07/24/2018 examination. - Procedures 08/03/2018 Cystoscopy with placement of suprapubic tube, cystogram 07/29/2018 Cystoscopy with fulguration of prostate bleeding Assessment and Plan - Assessment (1) Acute UTI Code(s): N39.0 - Urinary tract infection, site not specified Status: Acute (2) Prostate cancer metastatic to bone Code(s): C61 - Malignant neoplasm of prostate; C79.51 - Secondary malignant neoplasm of bone Status: Acute - Plan Mr. Queen is a pleasant 73-year-old male with a history of metastatic prostate carcinoma who was admitted to the hospital due to fever, hematuria and pelvic pain. Recurrent fevers Thought to be due to prostatitis, but now seems to be more like FUO. CMV PCR is negative. Discontinued off of antibiotics and monitoring per infectious disease Sigmoidoscopy unremarkable for any obvious source. Continue levofloxacin and meropenem, follow vital signs CT lumbar spine shows multiple lytic lesions in lumbar spine from prostate cancer metastasis Metastatic prostate carcinoma Patient is has had good response to leuprolide and Enzalutamide (Xtandi). Thorough discussion with palliative care, patient wants comfort, but also wishes to treat his cancer aggressively Continue Fentanyl patch, oral dilaudid with IV dilaudid for breakthrough Appreciate Oncology following Rectal pain Likely secondary to prostate CA mets or external hemorrhoids, sigmoidoscopy is otherwise unremarkable except for diverticulosis. Back pain Metastatic prostate cancer involving lumbar spine (seen on CT) Persistent hematuria Bilateral hydronephrosis on ultrasound left greater than right Radiation oncology is planning treatments Suprapubic catheter placement on 08/03/2018. Anemia Acute post-hemorrhagic anemia due to Genitourinary tract bleeding. s/p two units of PRBCs on 08/02/2018 Continue to monitor Hgb trend Hypocalcemia stable Acute prostatitis Completed regimen per ID DVT Prophylaxis SCD's, chemoprophylaxis contraindicated due to active hematuria
--- NOTE | 2018-08-12 12:02 | XR ---
EXAM DATE: 08/12/2018 10:47 AM EDT AGE/SEX: 73 years / Male INDICATIONS: Cough. CLINICAL DATA: This is the patient's initial encounter. Patient reports that signs and symptoms have been present for 1 day and indicates a pain score of 0/10. MEDICAL/SURGICAL HISTORY: . Carcinoma, prostatic. Carcinoma, bone. Hepatitis B. Renal disease. Hypertension. . Cholecystectomy. Bilateral femur surgery. COMPARISON: [facility] [place]ST 1V SINGLE AP, 07/22/2018. . FINDINGS: Portable AP view of the chest demonstrates a normal-sized cardiac silhouette. There are diffuse scler otic bone lesion similar to the prior study. No definite effusion, consolidation, or pneumothorax is identified. No definite pulmonary nodule is seen. No soft tissue abnormality is identified. CONCLUSION: Stable chest x-ray with diffuse sclerotic bone lesions. No acute pulmonary abnormality is identified. Electronically signed by: Joe Parham MD 08/12/2018 12:01 PM EDT
--- NOTE | 2018-08-12 12:27 | P.PNID ---
Subjective Remarks: doing well pain resolved with pain medx change no fever since 1600 yday Antibiotics: zosyn -stopped Past Medical History: Hep B Hypertension Kidney disease Prostate cancer with bone mets S/P hip surgery Allergies/Adverse Reactions: Allergies morphine Allergy (Severe, Verified 07/22/18 11:48) MORPHINE ALLERGY ADDED 12/19/07 @1500 - N/V Objective Vital Signs 08/11/18 16:00 08/11/18 20:35 08/11/18 21:20 Temperature 101.5 F H 98 F Pulse Rate 87 69 Respiratory Rate 16 18 16 Blood Pressure 130/70 102/47 L Pulse Oximetry 96 95 08/12/18 00:46 08/12/18 01:20 08/12/18 04:52 Temperature 97.6 F 98.4 F Pulse Rate 68 79 Respiratory Rate 18 16 18 Blood Pressure 118/62 125/62 Pulse Oximetry 97 96 08/12/18 05:28 08/12/18 08:00 Temperature 98.3 F Pulse Rate 86 Respiratory Rate 16 18 Blood Pressure 123/62 Pulse Oximetry 93 L Intake & Output 08/11/18 08/12/18 08/12/18 18:59 06:59 18:59 Intake Total 1200 / 1200 Output Total 1300 / 1300 1750 / 1750 Balance -100 / -100 -1750 / -1750 Weight 81 kg Intake: Oral 1200 / 1200 Output: Urine 1300 / 1300 Urine Amount (Catheter) 1750 / 1750 Suprapubic 1750 / 1750 Other: Date of Last Bowel Movement 08/11/18 08/11/18 08/05/18 10:41 Blood - Peripheral Aerobic Blood Culture - Final No growth in 5 days 08/05/18 10:41 Blood - Peripheral Anaerobic Blood Culture - Final No growth in 5 days 08/05/18 08:30 Blood - Peripheral Aerobic Blood Culture - Final No growth in 5 days 08/05/18 08:30 Blood - Peripheral Anaerobic Blood Culture - Final No growth in 5 days Lab - Hematology Results 08/11/18 15:36 WBC 10.2 RBC 2.84 L Hgb 8.8 L Hct 25.9 L MCV 91.2 MCH 31.1 MCHC 34.1 RDW 15.2 Plt Count 330 MPV 6.8 L Neut % (Auto) 82.9 H Lymph % (Auto) 5.9 L [place] % (Auto) 10.3 H Eos % (Auto) 0.5 Baso % (Auto) 0.4 Neut # (Auto) 8.5 H Lymph # (Auto) 0.6 L [place] # (Auto) 1.1 H Eos # (Auto) 0.1 Baso # (Auto) 0.0 WBC Differential . Differential Comment Auto diff final Lab - Chemistry Results 08/09/18 08/11/18 08/12/18 04:18 17:20 05:45 Sodium 145 Potassium 2.9 L* Chloride 108 H Carbon Dioxide 29.3 Anion Gap 8 BUN 28 H Creatinine 1.90 H Estimated GFR 35 L Random Glucose 102 Calcium 7.1 L* 7.4 L* Phosphorus 2.6 Albumin 1.7 L Procalcitonin 0.56 H Imaging: ITS Impressions Abdomen/Bladder Ultrasound 07/23/18 00:00 CONCLUSION: 1. Significant debris within the bladder likely blood. Mild bilateral hydronephrosis left greater than right. Abdomen/Pelvis CT 07/24/18 00:00 CONCLUSION: 1. Abnormal bladder with increased density consistent with blood products and/ or tumor. A Egnel catheter is present with a small amount of air. 2. New mild to moderate bilateral hydronephrosis. Small bilateral pleural effusions right greater than left. 3. Extensive sclerotic metastatic disease with interval progression. Lumbar Spine CT 08/11/18 00:00 CONCLUSION: 1. Diffuse sclerotic bone lesions throughout the visualized spine and sacrum. Findings are characteristic of osseous metastatic disease related to the patient 's prostate cancer. 2. There are mild degenerative changes throughout the lumbar spine with scoliosis. No spinal canal stenosis is identified. There are areas of mild to moderate neural foraminal narrowing, as above. 3. Chronic mild bilateral hydronephrosis and hydroureter. These findings appear similar to the 07/24/2018 examination. Chest X-Ray 08/12/18 10:47 CONCLUSION: Stable chest x-ray with diffuse sclerotic bone lesions. No acute pulmonary abnormality is identified. Physical Exam: GENERAL: Shevering and in pain awake and alert. SKIN: Warm and dry. No rash HEAD: Atraumatic. Normocephalic. EYES: Pupils equal and round. No scleral icterus. No injection or drainage. ENT: No nasal bleeding or discharge. Mucous membranes pink and moist. CARDIOVASCULAR: Regular rate and rhythm. RESPIRATORY: No accessory muscle use. Clear to auscultation. Breath sounds equal bilaterally. GASTROINTESTINAL: Abdomen soft, tender to palpation in lower quadrants w/o guarding or rebound SPC site with on going leaking around it lMUSCULOSKELETAL: Extremities without clubbing, cyanosis, No calf tenderness. +1 soft pitting edema : SP cath in place with clear yellow urine NEUROLOGICAL: awake, alert No obvious cranial nerve deficits. Motor grossly within normal limits. Five out of 5 muscle strength in the arms and legs. Normal speech. PSYCHIATRIC: calm, cooperative Assessment and Plan - Plan Impression Metastatic prostate cancer FUO (6 weeks) - likley from cancer - resolved Hematuria Probably UTI - Staph epi not a typical pathogen GENI - slighly better Persistent fever and rectal pain - proctitis? Recommendation cont off abx Follow new C/S fu P blood clx, WBC and temps watch for other s/o infection. In that case will resume abx and w/u repeat procalcitonine if remains afebrile OK to dc next week dw pt and his
[2018-08-12] MEDS: Latanoprost 0.005% Opth Drops 2.5 ML Bottle EACH EYE SCH (21:05)
[2018-08-12] MEDS: Acetaminophen 325 MG Tablet PO PRN (21:05)
[2018-08-13 06:22] LABS: Hemoglobin 7.6 gm/dL (13.0-17.0); Mean Corpuscular HGB Conc 33.2 % (32.0-36.0); Mean Corpuscular Hemoglobin 30.5 pg (27.0-34.0); Mean Corpuscular Volume 91.9 fL (80.0-100.0); Mean Platelet Volume 6.5 fL (7.0-11.0); Platelet Count 305 th/mm3 (150-450); Red Cell Distribution Width 15.4 % (11.6-17.2)
[2018-08-13 07:18] LABS: Calcium 7.4 mg/dL (8.5-10.1); Carbon Dioxide 27.8 meq/L (21.0-32.0); Potassium 3.1 meq/L (3.5-5.1)
[2018-08-13 07:35] LABS: Total Protein 6.2 g/dL (6.4-8.2)
[2018-08-13] MEDS: HYDROmorphone PF Inj 2 MG/ML Vial IV.PUSH PRN (07:46)
[2018-08-13] MEDS ORDERED: Calcium Chloride Inj 1 GM in Sodium Chlor 0.9% Inj 100 ML IV.SIG ONE (09:00)
[2018-08-13] MEDS: Folic Acid 1 MG Tablet PO SCH (10:39)
[2018-08-13] MEDS: Docusate Sodium 100 MG Capsule PO SCH ×3 (10:39→17:25)
[2018-08-13] MEDS: Gabapentin 300 MG Capsule PO SCH ×2 (10:40→20:26)
[2018-08-13] MEDS: Tenofovir 300 MG Tablet PO SCH (10:40)
[2018-08-13] MEDS: Calcium Carbonate 500 MG Tablet PO SCH ×2 (10:41→20:25)
[2018-08-13] MEDS: Tolterodine Tartrate LA 4 MG Capsule PO SCH (10:41)
[2018-08-13] MEDS: buPROPion 150 MG XL 24 HR Tablet PO SCH (10:42)
[2018-08-13] MEDS: Lidocaine 5% Patch T-DERMAL SCH (10:44)
--- NOTE | 2018-08-13 12:40 | P.PNNP ---
Subjective Interval history: Patient is alert, started eating better, not in distress. Physical Exam Vital signs: Vital Signs 08/12/18 16:15 08/12/18 20:00 08/13/18 00:00 Temperature 99.2 F 101.0 F H 98.8 F Pulse Rate 87 82 65 Respiratory Rate 20 13 16 Blood Pressure 121/73 129/72 121/65 Pulse Oximetry 94 L 93 L 94 L 08/13/18 04:00 08/13/18 10:23 Temperature 98.1 F 98.4 F Pulse Rate 63 81 Respiratory Rate 14 16 Blood Pressure 123/67 139/75 Pulse Oximetry 98 98 Intake & Output 08/12/18 08/13/18 08/13/18 18:59 06:59 18:59 Intake Total 662 / 662 480 / 480 Output Total 1400 / 1400 1550 / 1550 Balance -738 / -738 -1070 / -1070 Weight 80 kg Intake: Oral 662 / 662 480 / 480 Output: Urine 1550 / 1550 Urine Amount (Catheter) 1400 / 1400 Suprapubic 1400 / 1400 Other: Date of Last Bowel Movement 08/11/18 08/12/18 Narrative: GENERAL: AAOx3, no acute distress, generally weak SKIN: Warm and dry. No rashes HEAD: Atruamtic, normocephalic. EYES: No scleral icterus. No injection or drainage. ENT: Moist mucous membranes, patent nares, no erythema of oropharynx. NECK: Supple, trachea midline. No JVD or lymphadenopathy. Normal thyroid. CARDIOVASCULAR: Regular rate and rhythm. No murmurs, gallops, or rubs. RESPIRATORY: Breath sounds clear equal bilaterally. No crackles or wheezes. No accessory muscle use. GASTROINTESTINAL: Abdomen soft, non-tender, nondistended, normal active bowel sounds MUSCULOSKELETAL: No cyanosis, or edema. NEURO: CN II-XII grossly intact, no focal deficits, no slurring of speech - Urinary Catheter Management Indwelling Urethral Catheter Cath placed during this visit: yes, but has since been removed by the nurse Reason for continuing: Decision to DC catheter Insertion date: 08/05/18 Insertion time: 18:00 Removal date: 08/07/18 Removal time: 08:30 Suprapubic Cath placed during this visit: yes Reason for continuing: Chronic Urinary Retention Insertion date: 08/03/18 3-way Urethral Cath placed during this visit: yes Reason for continuing: Gross Hematuria Insertion date: 08/03/18 Assessment and Plan - Assessment (1) Acute on chronic kidney failure Code(s): N17.9 - Acute kidney failure, unspecified; N18.9 - Chronic kidney disease, unspecified Status: Acute (2) Gross hematuria Code(s): R31.0 - Gross hematuria Status: Acute Plan: Urology following. Possible bleeding from prostate. May have prostatitis. Underwent suprapubic catheter placement. Being followed by Oncology and urology. (3) Prostate cancer metastatic to bone Code(s): C61 - Malignant neoplasm of prostate; C79.51 - Secondary malignant neoplasm of bone Status: Acute Plan: Hematology/Oncology. (4) Acute UTI Code(s): N39.0 - Urinary tract infection, site not specified Status: Acute Plan: Possible prostatitis. ID on the case. Antibiotics discontinued. (5) Fever Code(s): R50.9 - Fever, unspecified Status: Acute Plan: Sigmoidoscopy yesterday, diverticulitis noted. ID on the case. - Plan (1) Acute on chronic kidney failure Code(s): N17.9 - Acute kidney failure, unspecified; N18.9 - Chronic kidney disease, unspecified Status: Acute Plan: Patient's renal function remains stable Creatinine remain stable at 1.90 today Continue to Avoid nephrotoxic agents. Follow urine output and labs. K and calcium low and being replaced. (2) Gross hematuria Code(s): R31.0 - Gross hematuria Status: Acute Plan: Urology following. Possible bleeding from prostate. May have prostatitis. Underwent suprapubic catheter placement. Being followed by Oncology and urology. (3) Prostate cancer metastatic to bone Code(s): C61 - Malignant neoplasm of prostate; C79.51 - Secondary malignant neoplasm of bone Status: Acute Plan: Hematology/Oncology. (4) Acute UTI Code(s): N39.0 - Urinary tract infection
[2018-08-13] MEDS: Acetaminophen 325 MG Tablet PO PRN (13:23)
--- NOTE | 2018-08-13 16:30 | P.PNIM ---
Subjective Interval history: Patient has increased rectal and pelvic pain today. He states he has not had a bowel movement since Tuesday night. He usually has an increase in his pain when he does not have a regular bowel movement. Physical Exam Vital signs: Vital Signs 08/12/18 20:00 08/13/18 00:00 08/13/18 04:00 Temperature 101.0 F H 98.8 F 98.1 F Pulse Rate 82 65 63 Respiratory Rate 13 16 14 Blood Pressure 129/72 121/65 123/67 Pulse Oximetry 93 L 94 L 98 08/13/18 10:23 08/13/18 12:45 08/13/18 14:34 Temperature 98.4 F 100.5 F H 102.9 F H Pulse Rate 81 94 H Respiratory Rate 16 16 Blood Pressure 139/75 147/72 H Pulse Oximetry 98 94 L 08/13/18 15:54 Temperature 100.4 F H Pulse Rate 94 H Respiratory Rate 16 Blood Pressure 110/51 L Pulse Oximetry 94 L Intake & Output 08/12/18 08/13/18 08/13/18 18:59 06:59 18:59 Intake Total 662 / 662 480 / 480 110 / 110 Output Total 1400 / 1400 1550 / 1550 Balance -738 / -738 -1070 / -1070 110 / 110 Weight 80 kg Intake: IV 110 / 110 Calcium Chloride Inj 1 GM In NS 110 / 110 Inj 100 ML @ 110 mls/hr IV.SIG ONCE ONE Rx#:[id number] Oral 662 / 662 480 / 480 Output: Urine 1550 / 1550 Urine Amount (Catheter) 1400 / 1400 Suprapubic 1400 / 1400 Other: Date of Last Bowel Movement 08/11/18 08/12/18 Narrative: GENERAL: AAOx3, no acute distress, generally weak SKIN: Warm and dry. No rashes, suprapubic catheter HEAD: Atruamtic, normocephalic. EYES: No scleral icterus. No injection or drainage. ENT: Moist mucous membranes, patent nares, no erythema of oropharynx. NECK: Supple, trachea midline. No JVD or lymphadenopathy. Normal thyroid. CARDIOVASCULAR: Regular rate and rhythm. No murmurs, gallops, or rubs. RESPIRATORY: Breath sounds clear equal bilaterally. No crackles or wheezes. No accessory muscle use. GASTROINTESTINAL: Abdomen soft, non-tender, nondistended, normal active bowel sounds MUSCULOSKELETAL: No cyanosis, or edema. NEURO: CN II-XII grossly intact, no focal deficits, no slurring of speech - Urinary Catheter Management Indwelling Urethral Catheter Cath placed during this visit: yes, but has since been removed by the nurse Reason for continuing: Decision to DC catheter Insertion date: 08/05/18 Insertion time: 18:00 Removal date: 08/07/18 Removal time: 08:30 Suprapubic Cath placed during this visit: yes Reason for continuing: Chronic Urinary Retention Insertion date: 08/03/18 3-way Urethral Cath placed during this visit: yes Reason for continuing: Gross Hematuria Insertion date: 08/03/18 Results - Labs CBC & Chem 7: 08/13/18 06:13 08/13/18 06:13 Laboratory Results - last 24 hr 08/13/18 08/13/18 06:13 06:13 WBC 7.0 RBC 2.50 L Hgb 7.6 L Hct 23.0 L MCV 91.9 MCH 30.5 MCHC 33.2 RDW 15.4 Plt Count 305 MPV 6.5 L Sodium 142 Potassium 3.1 L Chloride 106 Carbon Dioxide 27.8 Anion Gap 8 BUN 28 H Creatinine 1.90 H Estimated GFR 35 L Random Glucose 102 Calcium 7.4 L* Prot Corrected Calcium 7.9 L Total Protein 6.2 L - Procedures 08/03/2018 Cystoscopy with placement of suprapubic tube, cystogram 07/29/2018 Cystoscopy with fulguration of prostate bleeding Assessment and Plan - Assessment (1) Acute UTI Code(s): N39.0 - Urinary tract infection, site not specified Status: Acute (2) Prostate cancer metastatic to bone Code(s): C61 - Malignant neoplasm of prostate; C79.51 - Secondary malignant neoplasm of bone Status: Acute - Plan Mr. Queen is a pleasant 73-year-old male with a history of metastatic prostate carcinoma who was admitted to the hospital due to fever, hematuria and pelvic pain. Recurrent fevers Thought to be due to prostatitis, but now seems to be more like FUO. CMV PCR is negative. Discontinued off of antibiotics and monitoring per infectious disease Sigmoidoscopy unremarkable for any obvious source. CT lumbar spine shows multiple lytic lesions in lumbar spine from prostate cancer metastasis Fevers have recurred today and nearly daily. Will follow WBC trend and discussed with family regarding empiric coverage with antibiotics if they agree. Metastatic prostate carcinoma Patient is has had good response to leuprolide and Enzalutamide (Xtandi). Thorough discussion with palliative care, patient wants comfort, but also wishes to treat his cancer aggressively Continue Fentanyl patch, oral Dilaudid increased from 1 mg to 2 mg every 4 hours Appreciate Oncology following Rectal pain Likely secondary to prostate CA mets or external hemorrhoids, sigmoidoscopy is otherwise unremarkable except for diverticulosis. Topical lidocaine added for relief of topical rectal pain Back pain Metastatic prostate cancer involving lumbar spine (seen on CT) Persistent hematuria Bilateral hydronephrosis on ultrasound left greater than right Radiation oncology is planning treatments Suprapubic catheter placement on 08/03/2018. Anemia Acute post-hemorrhagic anemia due to Genitourinary tract bleeding. s/p two units of PRBCs on 08/02/2018 Continue to monitor Hgb trend Hypocalcemia stable Acute prostatitis Completed regimen per ID DVT Prophylaxis SCD's, chemoprophylaxis contraindicated due to active hematuria
[2018-08-13] MEDS: Latanoprost 0.005% Opth Drops 2.5 ML Bottle EACH EYE SCH (20:28)
[2018-08-14] MEDS: Acetaminophen 325 MG Tablet PO PRN ×3 (04:21→15:42)
[2018-08-14 07:51] LABS: Hematocrit 21.5 % (39.0-51.0); Hemoglobin 7.4 gm/dL (13.0-17.0); Mean Corpuscular HGB Conc 34.6 % (32.0-36.0); Mean Corpuscular Hemoglobin 31.3 pg (27.0-34.0); Mean Corpuscular Volume 90.5 fL (80.0-100.0); Platelet Count 320 th/mm3 (150-450); Red Blood Count 2.38 mil/mm3 (4.50-5.90); Red Cell Distribution Width 15.3 % (11.6-17.2); White Blood Count 8.8 th/mm3 (4.0-11.0)
[2018-08-14] MEDS ORDERED: Sodium Chlor 0.9% Inj 250 ML IV.SIG SCH (08:00)
[2018-08-14 08:13] LABS: Calcium 7.9 mg/dL (8.5-10.1); Carbon Dioxide 27.6 meq/L (21.0-32.0)
--- NOTE | 2018-08-14 08:28 | P.PNONC ---
Subjective Interval history: Patient seen and examined, vital signs labs, medications and events over the past week and reviewed. Subjectively; patient reports his pain is much better controlled since he was initiated on the fentanyl 25 mcg/h patch. He tells me he is eating reasonably well and in fact walked in the hallways yesterday. He has had no additional hematuria, he continues to have the suprapubic catheter in place. He continues to have fevers, most recent temperature spike was 102 F early this morning. Objective Vital Signs/Intake & Output: Vital Signs 08/13/18 10:23 08/13/18 12:45 08/13/18 14:34 Temperature 98.4 F 100.5 F H 102.9 F H Pulse Rate 81 94 H Respiratory Rate 16 16 Blood Pressure 139/75 147/72 H Pulse Oximetry 98 94 L 08/13/18 15:54 08/13/18 20:00 08/14/18 00:00 Temperature 100.4 F H 98.8 F 98.8 F Pulse Rate 94 H 106 H 76 Respiratory Rate 16 16 16 Blood Pressure 110/51 L 115/50 L 125/52 L Pulse Oximetry 94 L 96 94 L 08/14/18 04:00 08/14/18 05:34 Temperature 102.2 F H Pulse Rate 95 H Respiratory Rate 18 18 Blood Pressure 145/78 H Pulse Oximetry 94 L Intake & Output 08/13/18 08/14/18 08/14/18 18:59 06:59 18:59 Intake Total 1390 / 1390 700 / 700 Output Total 1950 / 1950 Balance 1390 / 1390 -1250 / -1250 Weight 81.5 kg Intake: IV 110 / 110 Calcium Chloride Inj 1 GM In NS 110 / 110 Inj 100 ML @ 110 mls/hr IV.SIG ONCE ONE Rx#:[id number] Oral 1280 / 1280 700 / 700 Output: Urine 1949 / 1950 Other: Date of Last Bowel Movement 08/11/18 Result Diagrams: 08/14/18 06:41 08/14/18 06:41 Laboratory Results: Laboratory Results - last 24 hr 08/14/18 08/14/18 06:41 06:41 WBC 8.8 RBC 2.38 L Hgb 7.4 L Hct 21.5 L MCV 90.5 MCH 31.3 MCHC 34.6 RDW 15.3 Plt Count 320 MPV 7.0 Sodium 142 Potassium 3.0 L Chloride 106 Carbon Dioxide 27.6 Anion Gap 8 BUN 26 H Creatinine 1.99 H Estimated GFR 33 L Random Glucose 109 H Calcium 7.9 L Medications: Active Medications Generic Name Dose Route Start Last Admin Trade Name Freq PRN Reason Stop Dose Admin Acetaminophen 650 mg 07/22/18 13:55 08/14/18 04:21 Tylenol PO 650 mg Q4H PRN Administration fever Acetaminophen 650 mg 07/29/18 08:29 08/01/18 20:35 Tylenol PO 650 mg Q4H PRN Administration SEE LABEL COMMENTS Belladonna Alkaloids/Opium 60 mg 08/02/18 15:30 08/06/18 13:53 B & O Supp RECTAL 60 mg Q6HR PRN Administration BLADDER SPASM Bupropion HCl 150 mg 07/22/18 14:00 08/13/18 10:42 Wellbutrin Xl PO 150 mg DAILY MILDRED Administration Sodium Chloride 3,000 ml/ 0 ml 07/29/18 23:03 08/06/18 13:28 Aminocaproic Acid 3,000 mg IRRIGATION 3,000 irrig.soln Q24H PRN Administration TO KEEP URINE CLEAR Diazepam 5 mg 07/22/18 13:57 08/10/18 21:21 Valium PO 5 mg DAILY PRN Administration Anxiety Docusate Sodium 100 mg 07/25/18 15:45 08/13/18 17:25 Colace PO 100 mg TID MILDRED Administration Fentanyl 1 patch 08/11/18 17:00 08/11/18 18:12 Duragesic 25 Mcg Patch.72hr T-DERMAL 1 patch Q3D MILDRED Administration Folic Acid 1 mg 07/24/18 12:00 08/13/18 10:39 Folic Acid PO 1 mg DAILY MILDRED Administration Gabapentin 300 mg 07/23/18 21:00 08/13/18 20:26 Neurontin PO 300 mg BID MILDRED Administration Hydrocortisone Acetate 1 applicatio 08/06/18 18:00 08/13/18 17:25 Anusol-Hc RECTAL 1 applicatio TID MILDRED Administration Hydromorphone HCl 0.5 mg 07/26/18 19:30 08/13/18 07:46 Dilaudid Pf Inj IV.PUSH 0.5 mg Q4H PRN Administration BREAKTHROUGH PAIN Hydromorphone HCl 2 mg 08/13/18 12:47 08/14/18 04:20 Dilaudid PO 2 mg Q4H PRN Administration PAIN SCALE 6 TO 10 Lactulose 30 ml 08/07/18 09:00 08/13/18 20:26 Lactulose Liq PO Not Given BID MILDRED Latanoprost 1 drop 07/22/18 21:00 08/13/18 20:28 Xalatan 0.005% Opth Drops EACH EYE 1 drop HS MILDRED Administration Lidocaine HCl 1 applicatio 08/05/18 17:15 08/05/18 20:46 Xylocaine 5% Oint TOPICAL 1 applicatio Q8H PRN Administration Acute Pain Lidocaine HCl 1 patch 08/06/18 15:00 08/13/18 10:44 Lidoderm 5% Patch.12 Hr T-DERMAL 1 patch DAILY MILDRED Administration Patch Removal 1 each 08/06/18 21:00 08/13/18 20:28 Remove Old Patch T-DERMAL 1 each HS MILDRED Administration Tenofovir Disoproxil Fumarate 300 mg 07/24/18 09:00 08/13/18 10:40 Viread PO 300 mg EVERY OTHER DAY MILDRED Administration Tolterodine Tartrate 4 mg 07/24/18 13:00 08/13/18 10:41 Detrol La PO 4 mg DAILY MILDRED Administration Vitamin D 2,000 unit 07/25/18 09:00 08/13/18 10:39 Vitamin D3 PO 2,000 unit DAILY MILDRED Administration Objective Remarks: GENERAL: Elderly male, laying in bed, not acutely distressed, awake, alert and oriented he appears to be chronically ill. Somewhat frail appearing. SKIN: Pale, warm and dry. HEAD: Normocephalic. EYES: Conjunctivae pale, no scleral icterus. No injection or drainage. NECK: Supple, trachea midline. No JVD or lymphadenopathy. LYMPHATIC: No adenopathy. CARDIOVASCULAR: Regular rate and rhythm without murmurs. RESPIRATORY: Breath sounds equal bilaterally. No accessory muscle use. GASTROINTESTINAL: Thin abdomen, soft, tenderness over the left lower quadrant, positive bowel sounds. Now with suprapubic catheter in place. Engel Catheter has been removed. Bladder irrigation has been d/flash. EXTREMITIES: No cyanosis, pitting edema noted around the ankles and dependent portions of the leg. MUSCULOSKELETAL: Generally decreased muscle mass. NEUROLOGICAL: Awake, alert, oriented, he has asked direct assist type clonus involving the hands. PSYCHIATRIC: Appropriate mood and affect; insight and judgment normal. Assessment/Plan - Plan Mr. Queen Is a 73-year-old man with a diagnosis of metastatic prostate carcinoma , he has had an excellent response to combination therapy consisting of leuprolide and Xtandi. His PSA levels have been less than 0.1 ng/dL over the past several months. He has extensive metastatic disease burden involving his axial skeleton especially his pelvis. Most recent PET CT scan revealed most of his previously active metastatic disease to be dormant, he however had intense hypermetabolic activity localized to the prostate and to the bladder. In late June he underwent cystoscopy for workup of hematuria with his former urologist Dr. Parmar, no obvious cause for hematuria was identified. He is now in the hospital with fevers, hematuria and pelvic pain. Clinically he has suspected prostatitis and is on broad-spectrum antibiotics with Zosyn and levofloxacin. Urine cultures and blood cultures are negative thus far other than forced staph epidermidis. CT scan of the abdomen/pelvis revealed no obvious cause for the hematuria. Recommendations: 1. Febrile illness: T-max 102.2 F. Infectious disease is following. Antibiotics have been discontinued, concern for antibiotic related fevers versus tumor fever? Continue to monitor for signs and symptoms of infection. 2. Hematuria: Resolved. Radiation to prostate started on 08/07. Suprapubic catheter draining clear yellow urine. 3. Pain control, continue long and short acting opioids. Monitor for oversedation. Continue Anusol-Hc for rectal pain. 4. Metastatic prostate carcinoma, PSA less than 0.1; I will asked his to bring in Xtandi so we can start sooner rather than later. I am not certain how long he will be in the hospital. I do not want him to be off treatment for an indefinite amount of time. 5. Anemia: Slight decrease in hemoglobin, red cell transfusion ordered for today. 6. Asterixis, hepatic encephalopathy related to chronic hep B. Lactulose has been prescribed, however patient states that he has been refusing due to it causing diarrhea.
--- NOTE | 2018-08-14 08:51 | P.PNURO ---
Subjective Patient symptoms today: Pt seen and examined. Feels well. Fever noted this AM. Objective Vital Signs: Vital Signs 08/13/18 10:23 08/13/18 12:45 08/13/18 14:34 Temperature 98.4 F 100.5 F H 102.9 F H Pulse Rate 81 94 H Respiratory Rate 16 16 Blood Pressure 139/75 147/72 H Pulse Oximetry 98 94 L 08/13/18 15:54 08/13/18 20:00 08/14/18 00:00 Temperature 100.4 F H 98.8 F 98.8 F Pulse Rate 94 H 106 H 76 Respiratory Rate 16 16 16 Blood Pressure 110/51 L 115/50 L 125/52 L Pulse Oximetry 94 L 96 94 L 08/14/18 04:00 08/14/18 05:34 Temperature 102.2 F H Pulse Rate 95 H Respiratory Rate 18 18 Blood Pressure 145/78 H Pulse Oximetry 94 L Intake & Output 08/13/18 08/14/18 08/14/18 18:59 06:59 18:59 Intake Total 1390 / 1390 700 / 700 Output Total 1950 / 1950 Balance 1390 / 1390 -1250 / -1250 Weight 81.5 kg Intake: IV 110 / 110 Calcium Chloride Inj 1 GM In NS 110 / 110 Inj 100 ML @ 110 mls/hr IV.SIG ONCE ONE Rx#:[id number] Oral 1280 / 1280 700 / 700 Output: Urine 1950 / 1950 Other: Date of Last Bowel Movement 08/11/18 Result Diagrams: 08/14/18 06:41 08/14/18 06:41 Procedures: Suprapubic catheter gently repositioned after balloon deflated. Balloon subsequently reinflated with 10 cc sterile water. Catheter then secured to lower abdomen with fixation device. Three-way Palacios catheter then replaced with a 20 [place] two-way Palacios catheter and subsequently irrigated with evacuation of a few small clots. CBI then re- implemented with inflow via the Palacios and outflow via the suprapubic catheter and titrated to light pink return. Medications and IVs: Active Medications Generic Name Dose Route Start Last Admin Trade Name Freq PRN Reason Stop Dose Admin Acetaminophen 650 mg 07/22/18 13:55 08/14/18 04:21 Tylenol PO 650 mg Q4H PRN Administration fever Acetaminophen 650 mg 07/29/18 08:29 08/01/18 20:35 Tylenol PO 650 mg Q4H PRN Administration SEE LABEL COMMENTS Belladonna Alkaloids/Opium 60 mg 08/02/18 15:30 08/06/18 13:53 B & O Supp RECTAL 60 mg Q6HR PRN Administration BLADDER SPASM Bupropion HCl 150 mg 07/22/18 14:00 08/13/18 10:42 Wellbutrin Xl PO 150 mg DAILY MILDRED Administration Sodium Chloride 3,000 ml/ 0 ml 07/29/18 23:03 08/06/18 13:28 Aminocaproic Acid 3,000 mg IRRIGATION 3,000 irrig.soln Q24H PRN Administration TO KEEP URINE CLEAR Diazepam 5 mg 07/22/18 13:57 08/10/18 21:21 Valium PO 5 mg DAILY PRN Administration Anxiety Docusate Sodium 100 mg 07/25/18 15:45 08/13/18 17:25 Colace PO 100 mg TID MILDRED Administration Fentanyl 1 patch 08/11/18 17:00 08/11/18 18:12 Duragesic 25 Mcg Patch.72hr T-DERMAL 1 patch Q3D MILDRED Administration Folic Acid 1 mg 07/24/18 12:00 08/13/18 10:39 Folic Acid PO 1 mg DAILY MILDRED Administration Gabapentin 300 mg 07/23/18 21:00 08/13/18 20:26 Neurontin PO 300 mg BID MILDRED Administration Hydrocortisone Acetate 25 mg 08/05/18 17:13 Hemorrhoidal Hc Supp RECTAL TID PRN Acute Pain Hydrocortisone Acetate 1 applicatio 08/06/18 18:00 08/13/18 17:25 Anusol-Hc RECTAL 1 applicatio TID MILDRED Administration Hydromorphone HCl 0.5 mg 07/26/18 19:30 08/13/18 07:46 Dilaudid Pf Inj IV.PUSH 0.5 mg Q4H PRN Administration BREAKTHROUGH PAIN Hydromorphone HCl 2 mg 08/13/18 12:47 08/14/18 04:20 Dilaudid PO 2 mg Q4H PRN Administration PAIN SCALE 6 TO 10 Sodium Chloride 250 mls @ 15 mls/hr 08/14/18 08:00 Ns Inj IV.SIG 08/15/18 00:39 ONCE MILDRED Lactulose 30 ml 08/07/18 09:00 08/13/18 20:26 Lactulose Liq PO Not Given BID MILDRED Latanoprost 1 drop 07/22/18 21:00 08/13/18 20:28 Xalatan 0.005% Opth Drops EACH EYE 1 drop HS MILDRED Administration Lidocaine HCl 1 applicatio 08/05/18 17:15 08/05/18 20:46 Xylocaine 5% Oint TOPICAL 1 applicatio Q8H PRN Administration Acute Pain Lidocaine HCl 1 patch 08/06/18 15:00 08/13/18 10:44 Lidoderm 5% Patch.12 Hr T-DERMAL 1 patch DAILY MILDRED Administration Lidocaine HCl 1 applicatio 08/13/18 14:00 L/M/X 4% Cream TOPICAL Q4H PRN rectal burning Patch Removal 1 each 08/06/18 21:00 08/13/18 20:28 Remove Old Patch T-DERMAL 1 each HS MILDRED Administration Patch Removal 1 each 08/14/18 16:11 Remove Old Patch T-DERMAL Q3D MILDRED Pom: (Lubiprostone [ 0 each 07/22/18 21:00 Amitiza] 24 Mcg) PO BID MILDRED Tenofovir Disoproxil Fumarate 300 mg 07/24/18 09:00 08/13/18 10:40 Viread PO 300 mg EVERY OTHER DAY MILDRED Administration Tolterodine Tartrate 4 mg 07/24/18 13:00 08/13/18 10:41 Detrol La PO 4 mg DAILY MILDRED Administration Vitamin D 2,000 unit 07/25/18 09:00 08/13/18 10:39 Vitamin D3 PO 2,000 unit DAILY MILDRED Administration Objective Remarks: IVONNE RRR Clear lungs Palacios is in place, urine is light pink 07/27 Abd:soft,nt,nd Palacios on CBI; now with pink urine; clots cleared. 07/28 Abd:soft,nt, nd Palacios with clear urine. 07/29 Abd:soft,nt,nd Palacios with gross hematuria with clots. 07/30 Abd:soft,nt,nd Palacios; now clear. 07/31 Abd:soft,nt,nd Palacios; now clear. 08/01 Abd:soft,nt,nd Palacios; now clear. 08/02 Abd:soft,nt,nd Palacios: clear. 08/04 Abd:soft,nt,nd Palacios: clear. 08/05 Abdomen soft, with irrigant leakage noted around suprapubic catheter Urine output medium red in color 08/07 Abd:soft,nt,nd Palacios removed at bedside. Urine clear. 08/08 Abd:soft,nt,nd SP tube clear 08/09 Abd:soft,nt,nd SP tube clear 08/10 Abd:soft,nt,nd SP tube clear; urine leaking around tube site at times. 08/11 Abd:soft,nt,nd SP tube clear 08/14 Abd:soft,nt,nd SP tube clear Assessment and Plan - Plan 73y.o M with other medical issues listed in HPI Urology consulted for hematuria, which is resolving now No additional recommendations, same as below - Continue care as per primary team - No acute intervention needed - Hematuria can be related to self cath and UTI as well as to previous radiation. - Continue current treatment, follow ID recommendations - Manual irrigation of the bladder may help to get rid of bladder clots/debris seen in the bladder on Sono. Do it BID - Pt to see his urologist after d/c for further management, may need cysto as outpt. 07/27/18 73 y.o male with metastatic CaP with gross hematuria 24F 3-way palacios in place; clots irrigated and CBI started Hold SQ Heparin; will order SCD's instead Will need cystoscopy at later date and may need HBO as outpt to help RX Radiation cystitis Will follow. 07/28 73 y.o male with metastatic CaP with gross hematuria 24F 3-way aplacios in place; urine now clear Cysto as outpt. 07/29 73 y.o male with metastatic CaP with gross hematuria Will need cysto with fulguration of bleeding in OR today Continue NPO. 07/30 73 y.o male with metastatic CaP with gross hematuria Continue supportive measures/transfusion/Amicar CBI To d/w Radiation oncology tomorrow. D/W Dr. Gant 07/31 73 y.o male with metastatic CaP with gross hematuria Continue supportive measures/transfusion/Amicar CBI Possible XRT therapy for control of bleeding. 08/01 73 y.o male with metastatic CaP with gross hematuria Urine now clearing on Amicar CBI XRT to start soon For SP tube insertion on . 08/02 73 y.o male with metastatic CaP with gross hematuria Urine now clearing on Amicar CBI XRT to start soon For SP tube insertion tomorrow. 08/04 Stable s/p SP tube insertion Continue CBI over the weekend Hopeful void trial Tuesday AM if urine remains clear. 08/05 Ongoing hematuria with subsequent blockage of Palacios catheter secondary to clot formation. Suprapubic catheter repositioned and three-way Palacios catheter exchanged for a two-way 20 [place] Palacios CBI reimplemented 08/06 CBI running well with resolution of the hematuria. We will continue with CBI at a slow rate and titrate up if necessary. 08/07 73 y.o male with metastatic prostate cancer with gross hematuria Palacios removed at bedside For XRT today. 08/08 73 y.o male with metastatic prostate cancer with gross hematuria Hematuria has resolved. Continue with XRT Fever-ID following. 08/09 73 y.o male with metastatic prostate cancer with gross hematuria Hematuria has resolved. Continue with XRT Irrigate SP tube prn 08/10 73 y.o male with metastatic prostate cancer with gross hematuria Hematuria has resolved. Continue with XRT therapy Still having fever. For Flex Sig today Irrigate SP tube prn Continue Detrol for leakage. 08/11 73 y.o male with metastatic prostate cancer with gross hematuria Hematuria has resolved. Continue with XRT therapy No clear evidence for cause of fevers. 08/14 73 y.o male with metastatic prostate cancer receiving XRT without evidence of recurrent hematuria after SP tube placed. Hgb at 7.4 with normal colonoscopy-diverticulum noted No clear evidence for fever. Possibly due to cancer SP tube to leg bag. F/U in 1 month.
--- NOTE | 2018-08-14 09:54 | P.PNNP ---
Subjective Interval history: Renal function is stable. Creatinine of around 1.9 to 2 may be his new baseline. Fever noted this morning. Antibiotics have been stopped. Physical Exam Vital signs: Vital Signs 08/13/18 10:23 08/13/18 12:45 08/13/18 14:34 Temperature 98.4 F 100.5 F H 102.9 F H Pulse Rate 81 94 H Respiratory Rate 16 16 Blood Pressure 139/75 147/72 H Pulse Oximetry 98 94 L 08/13/18 15:54 08/13/18 20:00 08/14/18 00:00 Temperature 100.4 F H 98.8 F 98.8 F Pulse Rate 94 H 106 H 76 Respiratory Rate 16 16 16 Blood Pressure 110/51 L 115/50 L 125/52 L Pulse Oximetry 94 L 96 94 L 08/14/18 04:00 08/14/18 05:34 Temperature 102.2 F H Pulse Rate 95 H Respiratory Rate 18 18 Blood Pressure 145/78 H Pulse Oximetry 94 L Intake & Output 08/13/18 08/14/18 08/14/18 18:59 06:59 18:59 Intake Total 1390 / 1390 700 / 700 Output Total 1949 / 1950 Balance 1390 / 1390 -1250 / -1250 Weight 81.5 kg Intake: IV 110 / 110 Calcium Chloride Inj 1 GM In NS 110 / 110 Inj 100 ML @ 110 mls/hr IV.SIG ONCE ONE Rx#:[id number] Oral 1280 / 1280 700 / 700 Output: Urine 1949 / 1950 Other: Date of Last Bowel Movement 08/11/18 Narrative: GENERAL: AAOx3, no acute distress, generally weak SKIN: Warm and dry. No rashes, suprapubic catheter HEAD: normocephalic. EYES: No scleral icterus. No injection or drainage. ENT: Moist mucous membranes, patent nares, no erythema of oropharynx. NECK: Supple, trachea midline. No JVD or lymphadenopathy. Normal thyroid. CARDIOVASCULAR: Regular rate and rhythm. No murmurs, gallops, or rubs. RESPIRATORY: Breath sounds clear equal bilaterally. No crackles or wheezes. No accessory muscle use. GASTROINTESTINAL: Abdomen soft, non-tender, nondistended, normal active bowel sounds, suprapubic catheter in place. MUSCULOSKELETAL: No cyanosis, or edema. - Urinary Catheter Management Indwelling Urethral Catheter Cath placed during this visit: yes, but has since been removed by the nurse Reason for continuing: Decision to DC catheter Insertion date: 08/05/18 Insertion time: 18:00 Removal date: 08/07/18 Removal time: 08:30 Suprapubic Cath placed during this visit: yes Reason for continuing: Chronic Urinary Retention Insertion date: 08/03/18 3-way Urethral Cath placed during this visit: yes Reason for continuing: Gross Hematuria Insertion date: 08/03/18 Assessment and Plan - Assessment (1) Acute on chronic kidney failure Code(s): N17.9 - ; N18.9 - Status: Acute Plan: Renal function is stable. Replace potassium. (2) Gross hematuria Code(s): R31.0 - Status: Acute Plan: Urology following. Possible bleeding from prostate. May have prostatitis. Underwent suprapubic catheter placement. Being followed by Oncology and urology. (3) Prostate cancer metastatic to bone Code(s): C61 - ; C79.51 - Status: Acute Plan: Hematology/Oncology. (4) Acute UTI Code(s): N39.0 - Status: Acute Plan: Possible prostatitis. ID on the case. Antibiotics discontinued. (5) Fever Code(s): R50.9 - Status: Acute Plan: - Plan (
[2018-08-14] MEDS: Gabapentin 300 MG Capsule PO SCH ×2 (10:21→20:00)
[2018-08-14] MEDS: Calcium Carbonate 500 MG Tablet PO SCH ×2 (10:21→20:00)
[2018-08-14] MEDS: Folic Acid 1 MG Tablet PO SCH (10:21)
[2018-08-14] MEDS: Lidocaine 5% Patch T-DERMAL SCH (10:22)
[2018-08-14] MEDS: buPROPion 150 MG XL 24 HR Tablet PO SCH (10:22)
[2018-08-14] MEDS: Docusate Sodium 100 MG Capsule PO SCH ×3 (10:22→17:06)
[2018-08-14] MEDS: Tolterodine Tartrate LA 4 MG Capsule PO SCH (10:22)
--- NOTE | 2018-08-14 15:00 | P.PNPAL ---
Reason for Visit Reason for visit: a. To assist with evaluation and management of symptoms including:pain, debility, pain b. To assist medical decision maker(s) with: better understanding of current medical conditions; weighing benefits/burdens of medical treatment options; making medical treatment decisions. Subjective Subjective/Interval History: Pt seen today to follow up on pain, comfort following adjustments a few days ago. Started on fentanyl patch 25mcgs 08/11, w prn dilaudid 1mg for break through. This prn dose was increased to 2mg yesterday. Pt using PO dilaudid 2mg about twice per day, and has used PRN IV dilaudid 0.5mg 2 times in the past 3 days. ID cont to follow-- no positive cultures for infection at this time, fever of unknown etiology. Tmax 102. Oncology following. Possible d/c home in the next day or so. Hgb 7.4, hct 21. Ordered for transfusion 2 U RBC today. No hematuria. Dual visit with Mauro Rahman APRN. Patient seen in room as physical therapy is working with him. , daughter, other family present, pt wishes they stay/participate. He is observed to be ambulating well with minimal standby assist from PT, using a walker. Ambulates approximately 20-30 feet well. No dyspnea. Returns to bed upon completion. Endorses overall pain is "much better "since the addition of fentanyl patch. Patient and his endorse that he has had a few fluctuations in which he required breakthrough medication, but the breakthrough medication worked, and overall general pain is at a much lower level and quite tolerable. He indicates the back pain itself is actually much better that the breakthrough pain tends to be rectal pain. He endorses that he discussed further with radiation oncologist and they are hopeful with continued radiation the pain should continue to improve. Endorses appetite is good. Large bowel movement earlier today soft though not loose. Feels bowel regimen is working. He is hopeful to get home. He feels overall a little stronger than he did a week ago. Patient and asked questions about how other pain regimen will be managed outpatient, review with him that details and recommendations have been shared with oncology team, and that when he begins to require consistent increased doses of the prn Dilaudid, i.e. 5-6 PRN doses daily but it may be time to consider increasing the fentanyl patch. caution that would also require ongoing evaluations by his outpatient physicians as there may be other clinical changes due to disease process that would be warranting attention. we reviewed benefits /burdens of pain medications. review as disease progresses he will still be expected to need adjustments or uptitration of medications to control pain. Review bowel regimen, risks. He asked questions about if they should follow up with outpatient pain management advised that they may have other adjuncts to offer and it would not hurt to follow-up with pain management if they are already working on being established. All questions answered to the best of my ability. Advance Directives Health Care Surrogate Name and Number: Luba Queen, Documented care wishes:: The patient has a living will that states in the presence of a terminal condition, end-state condition, or persistent vegatative state he wishes for life-prolonging procedures be withheld and withdrawn including but not limited to surgery, antibiotics, CPR, and artificially administered feeding and fluids Objective Vital Signs: Vital Signs 08/13/18 15:54 08/13/18 20:00 08/14/18 00:00 Temperature 100.4 F H 98.8 F 98.8 F Pulse Rate 94 H 106 H 76 Respiratory Rate 16 16 16 Blood Pressure 110/51 L 115/50 L 125/52 L Pulse Oximetry 94 L 96 94 L 08/14/18 04:00 08/14/18 05:34 08/14/18 08:00 Temperature 102.2 F H 98.6 F Pulse Rate 95 H 79 Respiratory Rate 18 18 20 Blood Pressure 145/78 H 138/70 Pulse Oximetry 94 L 96 08/14/18 11:55 Temperature 98.4 F Pulse Rate 72 Respiratory Rate 20 Blood Pressure 131/67 Pulse Oximetry 100 Intake & Output 08/13/18 08/14/18 08/14/18 18:59 06:59 18:59 Intake Total 1390 / 1390 700 / 700 0 / 0 Output Total 1950 / 1950 Balance 1390 / 1390 -1250 / -1250 0 / 0 Weight 81.5 kg Intake: IV 110 / 110 Calcium Chloride Inj 1 GM In NS 110 / 110 Inj 100 ML @ 110 mls/hr IV.SIG ONCE ONE Rx#:[id number] Oral 1280 / 1280 700 / 700 Intake (Blood Product) Amt 0 / 0 Rbc As-3 Leukoreduced Unit 0 / 0 [id number] Output: Urine 1949 Other: Date of Last Bowel Movement 08/11/18 08/14/18 Physical Exam: CONSTITUTIONAL/GENERAL: This is an adequately nourished patient, in no apparent distress. TUBES/LINES/DRAINS: :PIV UE, supra pubic catheter SKIN: No jaundice, rashes, or lesions. Multiple areas Ecchymoses on Bilat upper extremities. No wounds seen anteriorly. Skin warm/dry CARDIOVASCULAR: Regular rate and rhythm without murmur. No JVD. Peripheral pulses symmetric. trace pedal/ankle edema. RESPIRATORY/CHEST: Symmetric, unlabored respirations. Clear to auscultation. On room air. Breath sounds equal bilaterally. GASTROINTESTINAL: Abdomen soft, non-tender, nondistended. No palpable masses. + suprapubic catheter. Bowel sounds present. GENITOURINARY: Without palpable bladder distension. Suprapubic catheter in place with clear yellow urine MUSCULOSKELETAL: Extremities without clubbing, cyanosis. trace edema to bilateral lower legs/feet. NEUROLOGICAL: Awake and alert, oriented x 3, appropriate. Good insight. Follows commands. Cognitively sharp. Moves all 4 extremities. PSYCHIATRIC: No obvious anxiety/depression. no apparent hallucinations or other psychotic thought process. Diagnostic Tests Laboratory: Laboratory Results - last 72 hr 07/29/18 08/02/18 08/11/18 09:29 08:45 15:36 WBC 10.2 RBC 2.84 L Hgb 8.8 L Hct 25.9 L MCV 91.2 MCH 31.1 MCHC 34.1 RDW 15.2 Plt Count 330 MPV 6.8 L Neut % (Auto) 82.9 H Lymph % (Auto) 5.9 L Tyrrell % (Auto) 10.3 H Eos % (Auto) 0.5 Baso % (Auto) 0.4 Neut # (Auto) 8.5 H Lymph # (Auto) 0.6 L Tyrrell # (Auto) 1.1 H Eos # (Auto) 0.1 Baso # (Auto) 0.0 WBC Differential . Differential Comment Auto diff final Sodium Potassium Chloride Carbon Dioxide Anion Gap BUN Creatinine Estimated GFR Random Glucose Calcium Prot Corrected Calcium Phosphorus Total Protein Albumin Procalcitonin Blood Type Antibody Screen MTS Gel Crossmatch See Detail See Detail 08/11/18 08/12/18 08/13/18 17:20 05:45 06:13 WBC 7.0 RBC 2.50 L Hgb 7.6 L Hct 23.0 L MCV 91.9 MCH 30.5 MCHC 33.2 RDW 15.4 Plt Count 305 MPV 6.5 L Neut % (Auto) Lymph % (Auto) Tyrrell % (Auto) Eos % (Auto) Baso % (Auto) Neut # (Auto) Lymph # (Auto) Tyrrell # (Auto) Eos # (Auto) Baso # (Auto) WBC Differential Differential Comment Sodium 145 Potassium 2.9 L* Chloride 108 H Carbon Dioxide 29.3 Anion Gap 8 BUN 28 H Creatinine 1.90 H Estimated GFR 35 L Random Glucose 102 Calcium 7.4 L* Prot Corrected Calcium Phosphorus 2.6 Total Protein Albumin 1.7 L Procalcitonin 0.56 H Blood Type Antibody Screen MTS Gel Crossmatch 08/13/18 08/14/18 08/14/18 06:13 06:41 06:41 WBC 8.8 RBC 2.38 L Hgb 7.4 L Hct 21.5 L MCV 90.5 MCH 31.3 MCHC 34.6 RDW 15.3 Plt Count 320 MPV 7.0 Neut % (Auto) Lymph % (Auto) Tyrrell % (Auto) Eos % (Auto) Baso % (Auto) Neut # (Auto) Lymph # (Auto) Tyrrell # (Auto) Eos # (Auto) Baso # (Auto) WBC Differential Differential Comment Sodium 142 142 Potassium 3.1 L 3.0 L Chloride 106 106 Carbon Dioxide 27.8 27.6 Anion Gap 8 8 BUN 28 H 26 H Creatinine 1.90 H 1.99 H Estimated GFR 35 L 33 L Random Glucose 102 109 H Calcium 7.4 L* 7.9 L Prot Corrected Calcium 7.9 L Phosphorus Total Protein 6.2 L Albumin Procalcitonin Blood Type Antibody Screen MTS Gel Crossmatch 08/14/18 09:18 WBC RBC Hgb Hct MCV MCH MCHC RDW Plt Count MPV Neut % (Auto) Lymph % (Auto) Tyrrell % (Auto) Eos % (Auto) Baso % (Auto) Neut # (Auto) Lymph # (Auto) Tyrrell # (Auto) Eos # (Auto) Baso # (Auto) WBC Differential Differential Comment Sodium Potassium Chloride Carbon Dioxide Anion Gap BUN Creatinine Estimated GFR Random Glucose Calcium Prot Corrected Calcium Phosphorus Total Protein Albumin Procalcitonin Blood Type A Positive Antibody Screen Negative MTS Gel Crossmatch See Detail Result Diagrams: 08/14/18 06:41 08/14/18 06:41 Procedures: 07/29/18 Cystoscopy with fulguration 08/01/18 Simulation for palliative radiation of the pelvis 08/10/18 Sigmoidoscopy for rectal pain - moderate diverticulosis was seen with internal and external hemorrhoids Assessment and Plan Pertinent Non-Medical Issues: Psychosocial: for 40+ years and currently lives at home. The couple have one daughter together. 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 The patient loves the arts and attended art festivals yearly with his . Spiritual: none Legal: There are no know legal issues at this time Ethical issues impacting care: There are no know spiritual issues impacting care at this time Important Contacts: Luba Queen, /[facility] [phone] or [phone] Mary Queen, daughter/[facility] [phone] Prognosis: Even though Mr. Queen appears to be stable from a metastatic cancer standpoint with no increase in PSA and stable mary disease process, he still continues to experience pain and bleeding from his bladder. He may never return to his previous level of function and is at high risk for further debilitation and mortality. This patient would be a hospice candidate if goals were appropriate. Code Status: No Code DNR Plan: * LEGAL DECISION MAKER: The patient is currently able to participate in his own health care needs. Should his capacity change in any way, his Luba has been named his healthcare surrogate. There is a copy of his living will in the chart as well as the EMR * GOALS: For now, he wishes to continue with chemotherapy and explore the option, if any, of further palliative radiation to his spine. * CODE STATUS: DNR, a signed community DNR was placed in the chart and will be scanned into the EMR. His wishes were discussed at length during family meeting. * SYMPTOMS: Pain - multiple areas of bony metastasis. He has received XRT in the past which has provided some relief. Most recent imaging per oncology noted bony disease process stable 05/2018. Patient request if oncology would consider re-imaging to determine if additions XRT to the spine would be of any benefit. 08/14/18 pt endorses pain "much better overall". *If pt is requiring significant PRN's (>/= 5-6 doses PRN), and still painful may consider increasing patch to 50 mcg. PRN dilaudid now at 2mg-- effective. no further adjustments recommended at this time. sparing requirements 2x per day. INITIAL Pharmacological recommendations 08/11/18: -Current totals: 24h oxycodone requirement = 55mg which => 82.5mg oral morphine equivalents, 24h dilaudid requirement = 1.5mg => 30mg oral morphine equivalents/// total of both = approximately 112 oral morphine equivalents *upon exploration of pain history/medication regimen with patient and , he indicates that the oxycodone has never provided significant pain relief. he also endorses understanding that the pain will never be zero. Possible that his current opiate is not effective, could consider change to different opiate such as long-acting morphine or topical fentanyl. In the past, morphine IV post-op caused nausea. PO may not have the same effect, but could consider fentanyl instead. IV dilaudid has been effective here, consider PO dilaudid PRN for breakthrough to replace PRN oxycodone. (fentanyl patch 25mcg = 60mg oral morphine) -Recommend starting fentanyl patch at 25mcg/topical Q72h. D/C long acting oxycodone as well as short acting oxycodone. If fentanyl is started today, should begin effectiveness in approximately 5-6 hours. Would NOT recommend giving PO long acting oxy the evening. Monitor for lethargy or any other signs/ symptoms of intolerance. -D/C PRN oxy and start dilaudid PO: conservative would be 1mg PO Q4h PRN breakthrough pain or more liberal 2mg PO Q4h PRN breakthrough pain, would leave 0.5mg IVP dilaudid in the case pain is not relieved with PO PRN Constipation - has potentiality for worsening symptoms due to chronic opiate use. Current regimen of Colace BID and prune juice is working but may need adjustments as pain regimen is adjusted. He reports large BM today. Palliative care will continue to follow during hospital course his conditions evolves, to assist patient/decision-maker with understanding of medical conditions, weighing benefits/burdens of treatment options, for clarification of goals of treatment. Additionally will assist with any symptoms of palliative concern. Attestation Attestation: To help prompt me to consider important information that might be impacting today's encounter and assessment, information from prior notes written by myself or my colleagues may have been "brought forward" into today's note. My signature on this note, however, is an attestation that I personally performed the exam, history, and/or decision-making noted today, and, unless otherwise indicated, the interactions with patient, family, and staff as well as the review of records all occurred today. I also attest that the listed assessment and stated plan reflect my best clinical judgment today based on the combination of historical information, prior notes, and today's exam/ interactions. When time spent is documented, it refers only to time spent today by the signer, or if indicated, combined time spent today by collaborating physician/nurse practitioner.
--- NOTE | 2018-08-14 15:25 | P.DCO ---
- Physical Therapy Order: Evaluate and treat - Home Health Nursing Order: Medical education, Signs/symptoms of disease process, Medication education-adverse effect, Engel catheter maintenance - Case Management Consult Yes - Certification I have seen patient Servando Queen on 08/14/18. My clinical findings support the need for the requested home health care services because: Limited mobility due to disease progression, Deconditioned with increased weakness, Limited ability to care for self, High risk of falls I certify that my clinical findings support that this patient is homebound because: Unsteady gait/balance, Unsafe to leave home unassisted, Unable to use public transportation
--- NOTE | 2018-08-14 17:07 | P.PNADD ---
Addendum to Inpatient Note Additional information: dw Dr Miranda: he does not think there is underlying prostatitis will get Gallium scan to complete FUO w/u
--- NOTE | 2018-08-14 17:10 | P.PNID ---
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 Antibiotics: none Past Medical History: Hep B Hypertension Kidney disease Prostate cancer with bone mets S/P hip surgery Allergies/Adverse Reactions: Allergies morphine Allergy (Severe, Verified 07/22/18 11:48) MORPHINE ALLERGY ADDED 12/19/07 @1500 - N/V Objective Vital Signs 08/13/18 20:00 08/14/18 00:00 08/14/18 04:00 Temperature 98.8 F 98.8 F 102.2 F H Pulse Rate 106 H 76 95 H Respiratory Rate 16 16 18 Blood Pressure 115/50 L 125/52 L 145/78 H Pulse Oximetry 96 94 L 94 L 08/14/18 05:34 08/14/18 08:00 08/14/18 11:55 Temperature 98.6 F 98.4 F Pulse Rate 79 72 Respiratory Rate 18 20 20 Blood Pressure 138/70 131/67 Pulse Oximetry 96 100 08/14/18 16:28 08/14/18 16:48 Temperature 98.7 F 97.8 F Pulse Rate 78 70 Respiratory Rate 20 20 Blood Pressure 107/56 L 112/55 L Pulse Oximetry 97 97 Intake & Output 08/13/18 08/14/18 08/14/18 18:59 06:59 18:59 Intake Total 1390 / 1390 700 / 700 1300 / 1300 Output Total 1949 750 / 750 Balance 1390 / 1390 -1250 / -1250 550 / 550 Weight 81.5 kg Intake: IV 110 / 110 Calcium Chloride Inj 1 GM In NS 110 / 110 Inj 100 ML @ 110 mls/hr IV.SIG ONCE ONE Rx#:[id number] Oral 1280 / 1280 700 / 700 900 / 900 Intake (Blood Product) Amt 400 / 400 Rbc As-3 Leukoreduced Unit 400 / 400 [id number] Rbc As-3 Leukoreduced Unit 0 / 0 [id number] Output: Urine 1949 750 / 750 Other: Date of Last Bowel Movement 08/11/18 08/14/18 # Bowel Movements 1 Lab - Hematology Results 08/13/18 08/14/18 06:13 06:41 WBC 7.0 8.8 RBC 2.50 L 2.38 L Hgb 7.6 L 7.4 L Hct 23.0 L 21.5 L MCV 91.9 90.5 MCH 30.5 31.3 MCHC 33.2 34.6 RDW 15.4 15.3 Plt Count 305 320 MPV 6.5 L 7.0 Lab - Chemistry Results 08/13/18 08/14/18 06:13 06:41 Sodium 142 142 Potassium 3.1 L 3.0 L Chloride 106 106 Carbon Dioxide 27.8 27.6 Anion Gap 8 8 BUN 28 H 26 H Creatinine 1.90 H 1.99 H Estimated GFR 35 L 33 L Random Glucose 102 109 H Calcium 7.4 L* 7.9 L Prot Corrected Calcium 7.9 L Total Protein 6.2 L Imaging: ITS Impressions Abdomen/Bladder Ultrasound 07/23/18 00:00 CONCLUSION: 1. Significant debris within the bladder likely blood. Mild bilateral hydronephrosis left greater than right. Abdomen/Pelvis CT 07/24/18 00:00 CONCLUSION: 1. Abnormal bladder with increased density consistent with blood products and/ or tumor. A Engel catheter is present with a small amount of air. 2. New mild to moderate bilateral hydronephrosis. Small bilateral pleural effusions right greater than left. 3. Extensive sclerotic metastatic disease with interval progression. Lumbar Spine CT 08/11/18 00:00 CONCLUSION: 1. Diffuse sclerotic bone lesions throughout the visualized spine and sacrum. Findings are characteristic of osseous metastatic disease related to the patient 's prostate cancer. 2. There are mild degenerative changes throughout the lumbar spine with scoliosis. No spinal canal stenosis is identified. There are areas of mild to moderate neural foraminal narrowing, as above. 3. Chronic mild bilateral hydronephrosis and hydroureter. These findings appear similar to the 07/24/2018 examination. Chest X-Ray 08/12/18 10:47 CONCLUSION: Stable chest x-ray with diffuse sclerotic bone lesions. No acute pulmonary abnormality is identified. Physical Exam: GENERAL: NAD awake and alert. SKIN: Warm and dry. No rash HEAD: Atraumatic. Normocephalic. EYES: Pupils equal and round. No scleral icterus. No injection or drainage. ENT: No nasal bleeding or discharge. Mucous membranes pink and moist. CARDIOVASCULAR: Regular rate and rhythm. RESPIRATORY: No accessory muscle use. Clear to auscultation. Breath sounds equal bilaterally. GASTROINTESTINAL: Abdomen soft, tender to palpation in lower quadrants w/o guarding or rebound lMUSCULOSKELETAL: Extremities without clubbing, cyanosis, No calf tenderness. +1-2 soft pitting edema : SP cath in place with clear yellow urine NEUROLOGICAL: awake, alert No obvious cranial nerve deficits. Motor grossly within normal limits. Five out of 5 muscle strength in the arms and legs. Normal speech. PSYCHIATRIC: calm, cooperative Assessment and Plan - Plan Impression Metastatic prostate cancer FUO (6 weeks) - likley from cancer - resolved Hematuria Probably UTI - Staph epi not a typical pathogen GENI - slighly better Persistent fever ? tumor fever rectal pain no e/o proctitis on Felx sig Recommendation cont off abx symptomatic fever relief Follow new C/S gallium scan ac shen pt and his
--- NOTE | 2018-08-14 17:49 | P.PNIM ---
Subjective Interval history: 73-year-old male who is receiving 2 units of packed red blood cells today for a drop in his hemoglobin. He has no active bleeding, more likely this is from anemia of chronic disease related to his cancer. He is very interested in going home but understands that he will be undergoing a gallium study tomorrow to look for pockets of infection in order to explain the fever that he keeps having. Physical Exam Vital signs: Vital Signs 08/13/18 20:00 08/14/18 00:00 08/14/18 04:00 Temperature 98.8 F 98.8 F 102.2 F H Pulse Rate 106 H 76 95 H Respiratory Rate 16 16 18 Blood Pressure 115/50 L 125/52 L 145/78 H Pulse Oximetry 96 94 L 94 L 08/14/18 05:34 08/14/18 08:00 08/14/18 11:55 Temperature 98.6 F 98.4 F Pulse Rate 79 72 Respiratory Rate 18 20 20 Blood Pressure 138/70 131/67 Pulse Oximetry 96 100 08/14/18 16:28 08/14/18 16:48 Temperature 98.7 F 97.8 F Pulse Rate 78 70 Respiratory Rate 20 20 Blood Pressure 107/56 L 112/55 L Pulse Oximetry 97 97 Intake & Output 08/13/18 08/14/18 08/14/18 18:59 06:59 18:59 Intake Total 1390 / 1390 700 / 700 1300 / 1300 Output Total 1949 750 / 750 Balance 1390 / 1390 -1250 / -1250 550 / 550 Weight 81.5 kg Intake: IV 110 / 110 Calcium Chloride Inj 1 GM In NS 110 / 110 Inj 100 ML @ 110 mls/hr IV.SIG ONCE ONE Rx#:[id number] Oral 1280 / 1280 700 / 700 900 / 900 Intake (Blood Product) Amt 400 / 400 Rbc As-3 Leukoreduced Unit 400 / 400 [id number] Rbc As-3 Leukoreduced Unit 0 / 0 [id number] Output: Urine 1949 750 / 750 Other: Date of Last Bowel Movement 08/11/18 08/14/18 # Bowel Movements 1 Narrative: GENERAL: AAOx3, no acute distress, generally weak SKIN: Warm and dry. No rashes HEAD: Atruamtic, normocephalic. EYES: No scleral icterus. No injection or drainage. ENT: Moist mucous membranes, patent nares, no erythema of oropharynx. NECK: Supple, trachea midline. No JVD or lymphadenopathy. Normal thyroid. CARDIOVASCULAR: Regular rate and rhythm. No murmurs, gallops, or rubs. RESPIRATORY: Breath sounds clear equal bilaterally. No crackles or wheezes. No accessory muscle use. GASTROINTESTINAL: Abdomen soft, non-tender, nondistended, normal active bowel sounds, suprapubic catheter MUSCULOSKELETAL: No cyanosis, or edema. NEURO: CN II-XII grossly intact, no focal deficits, no slurring of speech - Urinary Catheter Management Indwelling Urethral Catheter Cath placed during this visit: yes, but has since been removed by the nurse Reason for continuing: Decision to DC catheter Insertion date: 08/05/18 Insertion time: 18:00 Removal date: 08/07/18 Removal time: 08:30 Suprapubic Cath placed during this visit: yes Reason for continuing: Chronic Urinary Retention Insertion date: 08/03/18 3-way Urethral Cath placed during this visit: yes Reason for continuing: Gross Hematuria Insertion date: 08/03/18 Results - Labs CBC & Chem 7: 08/14/18 06:41 08/14/18 06:41 Laboratory Results - last 24 hr 07/29/18 08/02/18 08/14/18 09:29 08:45 06:41 WBC 8.8 RBC 2.38 L Hgb 7.4 L Hct 21.5 L MCV 90.5 MCH 31.3 MCHC 34.6 RDW 15.3 Plt Count 320 MPV 7.0 Sodium Potassium Chloride Carbon Dioxide Anion Gap BUN Creatinine Estimated GFR Random Glucose Calcium Blood Type Antibody Screen MTS Gel Crossmatch See Detail See Detail 08/14/18 08/14/18 06:41 09:18 WBC RBC Hgb Hct MCV MCH MCHC RDW Plt Count MPV Sodium 142 Potassium 3.0 L Chloride 106 Carbon Dioxide 27.6 Anion Gap 8 BUN 26 H Creatinine 1.99 H Estimated GFR 33 L Random Glucose 109 H Calcium 7.9 L Blood Type A Positive Antibody Screen Negative MTS Gel Crossmatch See Detail - Procedures 08/03/2018 Cystoscopy with placement of suprapubic tube, cystogram 07/29/2018 Cystoscopy with fulguration of prostate bleeding Assessment and Plan - Assessment (1) Acute UTI Code(s): N39.0 - Urinary tract infection, site not specified Status: Acute (2) Prostate cancer metastatic to bone Code(s): C61 - Malignant neoplasm of prostate; C79.51 - Secondary malignant neoplasm of bone Status: Acute - Plan Mr. Queen is a pleasant 73-year-old male with a history of metastatic prostate carcinoma who was admitted to the hospital due to fever, hematuria and pelvic pain. Recurrent fevers Thought to be due to prostatitis, but now seems to be more like FUO. CMV PCR is negative. Discontinued off of antibiotics and monitoring per infectious disease Sigmoidoscopy unremarkable for any obvious source. CT lumbar spine shows multiple lytic lesions in lumbar spine from prostate cancer metastasis Infectious disease ordered gallium study to be completed tomorrow, looking for possible focus of infection Metastatic prostate carcinoma Patient is has had good response to leuprolide and Enzalutamide (Xtandi). Thorough discussion with palliative care, patient wants comfort, but also wishes to treat his cancer aggressively Continue Fentanyl patch, continue oral Dilaudid 2 mg every 4 hours, pain is under adequate control currently Appreciate Oncology following Rectal pain Likely secondary to prostate CA mets or external hemorrhoids, sigmoidoscopy is otherwise unremarkable except for diverticulosis. Topical lidocaine added for relief of topical rectal pain Back pain Metastatic prostate cancer involving lumbar spine (seen on CT) Persistent hematuria Bilateral hydronephrosis on ultrasound left greater than right Radiation oncology is planning treatments Suprapubic catheter placement on 08/03/2018. Anemia Acute post-hemorrhagic anemia due to Genitourinary tract bleeding. s/p 2 units of PRBCs on 08/02/2018 s/p 2 units of PRBCs on 08/14/2018 Continue to monitor Hgb trend Hypocalcemia stable Acute prostatitis Completed regimen per ID DVT Prophylaxis SCD's, chemoprophylaxis contraindicated due to active hematuria
[2018-08-14] MEDS: Latanoprost 0.005% Opth Drops 2.5 ML Bottle EACH EYE SCH (20:00)
[2018-08-15] MEDS: buPROPion 150 MG XL 24 HR Tablet PO SCH (08:02)
[2018-08-15] MEDS: Docusate Sodium 100 MG Capsule PO SCH ×3 (08:03→17:51)
[2018-08-15] MEDS: Gabapentin 300 MG Capsule PO SCH ×2 (08:04→20:28)
[2018-08-15] MEDS: Calcium Carbonate 500 MG Tablet PO SCH ×2 (08:04→20:28)
[2018-08-15] MEDS: Folic Acid 1 MG Tablet PO SCH (08:05)
[2018-08-15] MEDS: Tolterodine Tartrate LA 4 MG Capsule PO SCH (08:05)
[2018-08-15] MEDS: Lidocaine 5% Patch T-DERMAL SCH (08:05)
[2018-08-15] MEDS: Tenofovir 300 MG Tablet PO SCH (08:05)
--- NOTE | 2018-08-15 08:46 | P.PNURO ---
Subjective Patient symptoms today: Pt seen and examined. c/o pelvic pain. Objective Vital Signs: Vital Signs 08/14/18 11:55 08/14/18 16:28 08/14/18 16:48 Temperature 98.4 F 98.7 F 97.8 F Pulse Rate 72 78 70 Respiratory Rate 20 20 20 Blood Pressure 131/67 107/56 L 112/55 L Pulse Oximetry 100 97 97 08/14/18 20:00 08/14/18 21:39 08/15/18 00:11 Temperature 97.7 F 98.0 F Pulse Rate 66 74 Respiratory Rate 16 16 16 Blood Pressure 117/63 147/73 H Pulse Oximetry 96 97 08/15/18 00:43 08/15/18 04:59 08/15/18 05:39 Temperature 99.2 F Pulse Rate 101 H Respiratory Rate 16 19 17 Blood Pressure 148/73 H Pulse Oximetry 91 L 08/15/18 08:00 Temperature 99.7 F H Pulse Rate 100 H Respiratory Rate 18 Blood Pressure 145/65 H Pulse Oximetry 93 L Intake & Output 08/14/18 08/15/18 08/15/18 18:59 06:59 18:59 Intake Total 1300 / 1300 1140 / 1140 Output Total 750 / 750 2450 / 2450 Balance 550 / 550 -1310 / -1310 Weight 79.5 kg Intake: IV 60 / 60 NS Inj 250 ML @ 15 mls/hr IV. 60 / 60 SIG ONCE MILDRED Rx#:[id number] Oral 900 / 900 680 / 680 Intake (Blood Product) Amt 400 / 400 400 / 400 Rbc As-3 Leukoreduced Unit 400 / 400 [id number] Rbc As-3 Leukoreduced Unit 0 / 0 400 / 400 [id number] Output: Urine 750 / 750 Urine Amount (Catheter) 2450 / 2450 Suprapubic 2450 / 2450 Other: Date of Last Bowel Movement 08/14/18 08/13/18 08/14/18 # Bowel Movements 1 Result Diagrams: 08/14/18 06:41 08/14/18 06:41 Procedures: Suprapubic catheter gently repositioned after balloon deflated. Balloon subsequently reinflated with 10 cc sterile water. Catheter then secured to lower abdomen with fixation device. Three-way Palacios catheter then replaced with a 20 Polish two-way Palacios catheter and subsequently irrigated with evacuation of a few small clots. CBI then re- implemented with inflow via the Palacios and outflow via the suprapubic catheter and titrated to light pink return. Medications and IVs: Active Medications Generic Name Dose Route Start Last Admin Trade Name Freq PRN Reason Stop Dose Admin Acetaminophen 650 mg 07/22/18 13:55 08/14/18 15:42 Tylenol PO 650 mg Q4H PRN Administration fever Belladonna Alkaloids/Opium 60 mg 08/02/18 15:30 08/06/18 13:53 B & O Supp RECTAL 60 mg Q6HR PRN Administration BLADDER SPASM Bupropion HCl 150 mg 07/22/18 14:00 08/15/18 08:02 Wellbutrin Xl PO 150 mg DAILY MILDRED Administration Sodium Chloride 3,000 ml/ 0 ml 07/29/18 23:03 08/06/18 13:28 Aminocaproic Acid 3,000 mg IRRIGATION 3,000 irrig.soln Q24H PRN Administration TO KEEP URINE CLEAR Diazepam 5 mg 07/22/18 13:57 08/10/18 21:21 Valium PO 5 mg DAILY PRN Administration Anxiety Docusate Sodium 100 mg 07/25/18 15:45 08/15/18 08:03 Colace PO 100 mg TID MILDRED Administration Fentanyl 1 patch 08/11/18 17:00 08/14/18 16:37 Duragesic 25 Mcg Patch.72hr T-DERMAL 1 patch Q3D MILDRED Administration Folic Acid 1 mg 07/24/18 12:00 08/15/18 08:05 Folic Acid PO 1 mg DAILY MILDRED Administration Gabapentin 300 mg 07/23/18 21:00 08/15/18 08:04 Neurontin PO 300 mg BID MILDRED Administration Hydrocortisone Acetate 25 mg 08/05/18 17:13 Hemorrhoidal Hc Supp RECTAL TID PRN Acute Pain Hydrocortisone Acetate 1 applicatio 08/06/18 18:00 08/15/18 08:06 Anusol-Hc RECTAL 1 applicatio TID MILDRED Administration Hydromorphone HCl 0.5 mg 07/26/18 19:30 08/13/18 07:46 Dilaudid Pf Inj IV.PUSH 0.5 mg Q4H PRN Administration BREAKTHROUGH PAIN Hydromorphone HCl 2 mg 08/13/18 12:47 08/15/18 08:03 Dilaudid PO 2 mg Q4H PRN Administration PAIN SCALE 6 TO 10 Lactulose 30 ml 08/07/18 09:00 08/15/18 08:05 Lactulose Liq PO Not Given BID MILDRED Latanoprost 1 drop 07/22/18 21:00 08/14/18 20:00 Xalatan 0.005% Opth Drops EACH EYE 1 drop HS MILDRED Administration Lidocaine HCl 1 applicatio 08/05/18 17:15 08/05/18 20:46 Xylocaine 5% Oint TOPICAL 1 applicatio Q8H PRN Administration Acute Pain Lidocaine HCl 1 patch 08/06/18 15:00 08/15/18 08:05 Lidoderm 5% Patch.12 Hr T-DERMAL 1 patch DAILY MILDRED Administration Lidocaine HCl 1 applicatio 08/13/18 14:00 L/M/X 4% Cream TOPICAL Q4H PRN rectal burning Patch Removal 1 each 08/06/18 21:00 08/14/18 20:00 Remove Old Patch T-DERMAL 1 each HS MILDRED Administration Patch Removal 1 each 08/14/18 16:11 08/14/18 16:40 Remove Old Patch T-DERMAL 1 each Q3D MILDRED Administration Pom: (Lubiprostone [ 0 each 07/22/18 21:00 Amitiza] 24 Mcg) PO BID [facility] Tenofovir Disoproxil Fumarate 300 mg 07/24/18 09:00 08/15/18 08:05 Viread PO 300 mg EVERY OTHER DAY MILDRED Administration Tolterodine Tartrate 4 mg 07/24/18 13:00 08/15/18 08:05 Detrol La PO 4 mg DAILY MILDRED Administration Vitamin D 2,000 unit 07/25/18 09:00 08/15/18 08:06 Vitamin D3 PO 2,000 unit DAILY MILDRED Administration Objective Remarks: IVONNE RRR Clear lungs Palacios is in place, urine is light pink 07/27 Abd:soft,nt,nd Palacios on CBI; now with pink urine; clots cleared. 07/28 Abd:soft,nt, nd Palacios with clear urine. 07/29 Abd:soft,nt,nd Palacios with gross hematuria with clots. 07/30 Abd:soft,nt,nd Palacios; now clear. 07/31 Abd:soft,nt,nd Palacios; now clear. 08/01 Abd:soft,nt,nd Palacios; now clear. 08/02 Abd:soft,nt,nd Palacios: clear. 08/04 Abd:soft,nt,nd Palacios: clear. 08/05 Abdomen soft, with irrigant leakage noted around suprapubic catheter Urine output medium red in color 08/07 Abd:soft,nt,nd Palacios removed at bedside. Urine clear. 08/08 Abd:soft,nt,nd SP tube clear 08/09 Abd:soft,nt,nd SP tube clear 08/10 Abd:soft,nt,nd SP tube clear; urine leaking around tube site at times. 08/11 Abd:soft,nt,nd SP tube clear 08/14 Abd:soft,nt,nd SP tube clear 08/15 Abd:soft,nt,nd SP tube clear urine. Some leaking noted around tube site. Assessment and Plan - Plan 73y.o M with other medical issues listed in HPI Urology consulted for hematuria, which is resolving now No additional recommendations, same as below - Continue care as per primary team - No acute intervention needed - Hematuria can be related to self cath and UTI as well as to previous radiation. - Continue current treatment, follow ID recommendations - Manual irrigation of the bladder may help to get rid of bladder clots/debris seen in the bladder on Sono. Do it BID - Pt to see his urologist after d/c for further management, may need cysto as outpt. 07/27/18 73 y.o male with metastatic CaP with gross hematuria 24F 3-way palacios in place; clots irrigated and CBI started Hold SQ Heparin; will order SCD's instead Will need cystoscopy at later date and may need HBO as outpt to help RX Radiation cystitis Will follow. 07/28 73 y.o male with metastatic CaP with gross hematuria 24F 3-way palacios in place; urine now clear Cysto as outpt. 07/29 73 y.o male with metastatic CaP with gross hematuria Will need cysto with fulguration of bleeding in OR today Continue NPO. 07/30 73 y.o male with metastatic CaP with gross hematuria Continue supportive measures/transfusion/Amicar CBI To d/w Radiation oncology tomorrow. D/W Dr. Gant 07/31 73 y.o male with metastatic CaP with gross hematuria Continue supportive measures/transfusion/Amicar CBI Possible XRT therapy for control of bleeding. 08/01 73 y.o male with metastatic CaP with gross hematuria Urine now clearing on Amicar CBI XRT to start soon For SP tube insertion on . 08/02 73 y.o male with metastatic CaP with gross hematuria Urine now clearing on Amicar CBI XRT to start soon For SP tube insertion tomorrow. 08/04 Stable s/p SP tube insertion Continue CBI over the weekend Hopeful void trial Tuesday if urine remains clear. 08/05 Ongoing hematuria with subsequent blockage of Palacios catheter secondary to clot formation. Suprapubic catheter repositioned and three-way Palacios catheter exchanged for a two-way 20 Polish Palacios CBI reimplemented 08/06 CBI running well with resolution of the hematuria. We will continue with CBI at a slow rate and titrate up if necessary. 08/07 73 y.o male with metastatic prostate cancer with gross hematuria Palacios removed at bedside For XRT today. 08/08 73 y.o male with metastatic prostate cancer with gross hematuria Hematuria has resolved. Continue with XRT Fever-ID following. 08/09 73 y.o male with metastatic prostate cancer with gross hematuria Hematuria has resolved. Continue with XRT Irrigate SP tube prn 08/10 73 y.o male with metastatic prostate cancer with gross hematuria Hematuria has resolved. Continue with XRT therapy Still having fever. For Flex Sig today Irrigate SP tube prn Continue Detrol for leakage. 08/11 73 y.o male with metastatic prostate cancer with gross hematuria Hematuria has resolved. Continue with XRT therapy No clear evidence for cause of fevers. 08/14 73 y.o male with metastatic prostate cancer receiving XRT without evidence of recurrent hematuria after SP tube placed. Hgb at 7.4 with normal colonoscopy-diverticulum noted No clear evidence for fever. Possibly due to cancer SP tube to leg bag. F/U in 1 month. 08/15 73 y.o male with metastatic prostate cancer receiving XRT without evidence of recurrent hematuria after SP tube placed. Stable for discharge from standpoint.
--- NOTE | 2018-08-15 09:41 | P.PNNP ---
Subjective Interval history: Notes were reviewed, patient receiving XRT. No new labs. Fever thought to be secondary to tumor. Possible discharge today. Physical Exam Vital signs: Vital Signs 08/14/18 11:55 08/14/18 16:28 08/14/18 16:48 Temperature 98.4 F 98.7 F 97.8 F Pulse Rate 72 78 70 Respiratory Rate 20 20 20 Blood Pressure 131/67 107/56 L 112/55 L Pulse Oximetry 100 97 97 08/14/18 20:00 08/14/18 21:39 08/15/18 00:11 Temperature 97.7 F 98.0 F Pulse Rate 66 74 Respiratory Rate 16 16 16 Blood Pressure 117/63 147/73 H Pulse Oximetry 96 97 08/15/18 00:43 08/15/18 04:59 08/15/18 05:39 Temperature 99.2 F Pulse Rate 101 H Respiratory Rate 16 19 17 Blood Pressure 148/73 H Pulse Oximetry 91 L 08/15/18 08:00 Temperature 99.7 F H Pulse Rate 100 H Respiratory Rate 18 Blood Pressure 145/65 H Pulse Oximetry 93 L Intake & Output 08/14/18 08/15/18 08/15/18 18:59 06:59 18:59 Intake Total 1300 / 1300 1140 / 1140 Output Total 750 / 750 2450 / 2450 Balance 550 / 550 -1310 / -1310 Weight 79.5 kg Intake: IV 60 / 60 NS Inj 250 ML @ 15 mls/hr IV. 60 / 60 SIG ONCE MILDRED Rx#:[id number] Oral 900 / 900 680 / 680 Intake (Blood Product) Amt 400 / 400 400 / 400 Rbc As-3 Leukoreduced Unit 400 / 400 [id number] Rbc As-3 Leukoreduced Unit 0 / 0 400 / 400 [id number] Output: Urine 750 / 750 Urine Amount (Catheter) 2450 / 2450 Suprapubic 2450 / 2450 Other: Date of Last Bowel Movement 08/14/18 08/13/18 08/14/18 # Bowel Movements 1 Narrative: GENERAL: AAOx3, no acute distress, generally weak SKIN: Warm and dry. No rashes HEAD: Atruamtic, normocephalic. EYES: No scleral icterus. No injection or drainage. ENT: Moist mucous membranes, patent nares, no erythema of oropharynx. NECK: Supple, trachea midline. No JVD or lymphadenopathy. Normal thyroid. CARDIOVASCULAR: Regular rate and rhythm. No murmurs, gallops, or rubs. RESPIRATORY: Breath sounds clear equal bilaterally. No crackles or wheezes. No accessory muscle use. GASTROINTESTINAL: Abdomen soft, non-tender, nondistended, normal active bowel sounds, suprapubic catheter MUSCULOSKELETAL: No cyanosis, or edema. NEURO: CN II-XII grossly intact, no focal deficits, no slurring of speech - Urinary Catheter Management Indwelling Urethral Catheter Cath placed during this visit: yes, but has since been removed by the nurse Reason for continuing: Decision to DC catheter Insertion date: 08/05/18 Insertion time: 18:00 Removal date: 08/07/18 Removal time: 08:30 Suprapubic Cath placed during this visit: yes Reason for continuing: Chronic Urinary Retention Insertion date: 08/03/18 3-way Urethral Cath placed during this visit: yes Reason for continuing: Gross Hematuria Insertion date: 08/03/18 Assessment and Plan - Assessment (1) Acute on chronic kidney failure Code(s): N17.9 - Acute kidney failure, unspecified; N18.9 - Chronic kidney disease, unspecified Status: Acute Plan: Renal function is stable. Replace potassium as and when needed. (2) Gross hematuria Code(s): R31.0 - Gross hematuria Status: Acute Plan: Urology following. Possible bleeding from prostate. May have prostatitis. Underwent suprapubic catheter placement. Being followed by Oncology and urology. (3) Prostate cancer metastatic to bone Code(s): C61 - Malignant neoplasm of prostate; C79.51 - Secondary malignant neoplasm of bone Status: Acute Plan: Hematology/Oncology. (4) Acute UTI Code(s): N39.0 - Urinary tract infection, site not specified Status: Acute Plan: Possible prostatitis. ID on the case. Antibiotics discontinued. (5) Fever Code(s): R50.9 - Fever, unspecified Status: Acute Plan: - Plan ( Discussed Condition With: Family member. - Attending Attestation If patient is discharged, recommend BMP in [address] on 08/11/18 revealed mild bilateral hydronephrosis. He now has a suprapubic catheter that appears to be functioning well. Office followup.
[2018-08-15] MEDS: Acetaminophen 325 MG Tablet PO PRN ×2 (10:22→14:23)
[2018-08-15] MEDS: HYDROmorphone PF Inj 2 MG/ML Vial IV.PUSH PRN ×2 (10:22→14:24)
--- NOTE | 2018-08-15 14:51 | P.PNPAL ---
Reason for Visit Reason for visit: a. To assist with evaluation and management of symptoms including:pain, debility, pain b. To assist medical decision maker(s) with: better understanding of current medical conditions; weighing benefits/burdens of medical treatment options; making medical treatment decisions. Subjective Subjective/Interval History: Pt seen today to follow up on pain, comfort following adjustments a few days ago. Started on fentanyl patch 25mcgs 08/11, w prn dilaudid 2mg for break through. using PO dilaudid 2mg 2-3 per day, using IV a few times. ID cont to follow-- no positive cultures for infection at this time, fever of unknown etiology-- gallium scan in progress/pending. Febrile today despite Tylenol. Possible d/c home tomorrow following gallium scan, radiation. Dual visit with Mauro Rahman APRN. Pt seen in room, at bedside. He has red cheeks, flat, fatigued in appearance. indicates more painful today, tired, febrile. He indicates feeling exhausted, though reports yesterday he felt so good and had a good day visiting w his daughter. Fair appetite, ate soup for lunch, no GI complaints. + voiding adequately. Endorses pain somewhat better with dilaudid, but in general more uncomfortable today. Gently explore underlying disease process and that pt remains debilitated , deconditioned and he may have "good days" followed by "recovery days" in which he has less energy. Further explore that the physiology of fever is such that it will contribute to pain, fatigue, and this can be worsened by activities/exertion such as imaging, etc. Pt, endorse DME has been delivered to home, hopeful to go home tomorrow. All questions answered to the best of my ability. Advance Directives Health Care Surrogate Name and Number: Luba Queen, Documented care wishes:: The patient has a living will that states in the presence of a terminal condition, end-state condition, or persistent vegatative state he wishes for life-prolonging procedures be withheld and withdrawn including but not limited to surgery, antibiotics, CPR, and artificially administered feeding and fluids Objective Vital Signs: Vital Signs 08/14/18 16:28 08/14/18 16:48 08/14/18 20:00 Temperature 98.7 F 97.8 F 97.7 F Pulse Rate 78 70 66 Respiratory Rate 20 20 16 Blood Pressure 107/56 L 112/55 L 117/63 Pulse Oximetry 97 97 96 08/14/18 21:39 08/15/18 00:11 08/15/18 00:43 Temperature 98.0 F Pulse Rate 74 Respiratory Rate 16 16 16 Blood Pressure 147/73 H Pulse Oximetry 97 08/15/18 04:59 08/15/18 05:39 08/15/18 08:00 Temperature 99.2 F 99.7 F H Pulse Rate 101 H 100 H Respiratory Rate 19 17 18 Blood Pressure 148/73 H 145/65 H Pulse Oximetry 91 L 93 L 08/15/18 12:29 Temperature 98.2 F Pulse Rate 85 Respiratory Rate 18 Blood Pressure 144/72 H Pulse Oximetry 95 Intake & Output 08/14/18 08/15/18 08/15/18 18:59 06:59 18:59 Intake Total 1300 / 1300 1140 / 1140 Output Total 750 / 750 2450 / 2450 Balance 550 / 550 -1310 / -1310 Weight 79.5 kg Intake: IV 60 / 60 NS Inj 250 ML @ 15 mls/hr IV. 60 / 60 SIG ONCE MILDRED Rx#:[id number] Oral 900 / 900 680 / 680 Intake (Blood Product) Amt 400 / 400 400 / 400 Rbc As-3 Leukoreduced Unit 400 / 400 [id number] Rbc As-3 Leukoreduced Unit 0 / 0 400 / 400 [id number] Output: Urine 750 / 750 Urine Amount (Catheter) 2450 / 2450 Suprapubic 2450 / 2450 Other: Date of Last Bowel Movement 08/14/18 08/13/18 08/14/18 # Bowel Movements 1 Physical Exam: CONSTITUTIONAL/GENERAL: This is an adequately nourished patient, in no apparent distress, flushed cheeks TUBES/LINES/DRAINS: :PIV UE, supra pubic catheter SKIN: No jaundice, rashes, or lesions. Multiple areas Ecchymoses on Bilat upper extremities. No wounds seen anteriorly. Skin warm/dry CARDIOVASCULAR: Regular rate and rhythm without murmur. No JVD. Peripheral pulses symmetric. trace pedal/ankle edema. RESPIRATORY/CHEST: Symmetric, unlabored respirations. Clear to auscultation. On room air. Breath sounds equal bilaterally. GASTROINTESTINAL: Abdomen soft, non-tender, nondistended. No palpable masses. + suprapubic catheter. Bowel sounds present. GENITOURINARY: Without palpable bladder distension. Suprapubic catheter in place with clear yellow urine MUSCULOSKELETAL: Extremities without clubbing, cyanosis. trace edema to bilateral lower legs/feet. NEUROLOGICAL: Awake and alert, oriented x 3, appropriate. Good insight. Follows commands. Cognitively sharp. Moves all 4 extremities. PSYCHIATRIC: flat, fatigued , no apparent anxiety Diagnostic Tests Laboratory: Laboratory Results - last 72 hr 07/29/18 08/02/18 08/13/18 09:29 08:45 06:13 WBC 7.0 RBC 2.50 L Hgb 7.6 L Hct 23.0 L MCV 91.9 MCH 30.5 MCHC 33.2 RDW 15.4 Plt Count 305 MPV 6.5 L Sodium Potassium Chloride Carbon Dioxide Anion Gap BUN Creatinine Estimated GFR Random Glucose Calcium Prot Corrected Calcium Total Protein Blood Type Antibody Screen MTS Gel Crossmatch See Detail See Detail 08/13/18 08/14/18 08/14/18 06:13 06:41 06:41 WBC 8.8 RBC 2.38 L Hgb 7.4 L Hct 21.5 L MCV 90.5 MCH 31.3 MCHC 34.6 RDW 15.3 Plt Count 320 MPV 7.0 Sodium 142 142 Potassium 3.1 L 3.0 L Chloride 106 106 Carbon Dioxide 27.8 27.6 Anion Gap 8 8 BUN 28 H 26 H Creatinine 1.90 H 1.99 H Estimated GFR 35 L 33 L Random Glucose 102 109 H Calcium 7.4 L* 7.9 L Prot Corrected Calcium 7.9 L Total Protein 6.2 L Blood Type Antibody Screen MTS Gel Crossmatch 08/14/18 09:18 WBC RBC Hgb Hct MCV MCH MCHC RDW Plt Count MPV Sodium Potassium Chloride Carbon Dioxide Anion Gap BUN Creatinine Estimated GFR Random Glucose Calcium Prot Corrected Calcium Total Protein Blood Type A Positive Antibody Screen Negative MTS Gel Crossmatch See Detail Result Diagrams: 08/14/18 06:41 08/14/18 06:41 Procedures: 07/29/18 Cystoscopy with fulguration 08/01/18 Simulation for palliative radiation of the pelvis 08/10/18 Sigmoidoscopy for rectal pain - moderate diverticulosis was seen with internal and external hemorrhoids Assessment and Plan - Disease Oriented Problem List (1) Prostate cancer metastatic to bone (2) Chronic pain due to neoplasm (3) Prostate cancer metastatic to bone - Symptom Scale (1) Pain 0-10 Scale: 5 (2) Constipation 0-10 Scale: Unable to quantify Pertinent Non-Medical Issues: Psychosocial: for 40+ years and currently lives at home. The couple have one daughter together. 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 The patient loves the arts and attended art festivals yearly with his . Spiritual: none Legal: There are no know legal issues at this time Ethical issues impacting care: There are no know spiritual issues impacting care at this time Important Contacts: Luba Queen, /[facility] [phone] or [phone] Mary Queen, daughter/alternate [facility] [phone] Prognosis: Even though Mr. Queen appears to be stable from a metastatic cancer standpoint with no increase in PSA and stable mary disease process, he still continues to experience pain and bleeding from his bladder. He may never return to his previous level of function and is at high risk for further debilitation and mortality. This patient would be a hospice candidate if goals were appropriate. Code Status: No Code DNR Plan: * LEGAL DECISION MAKER: The patient is currently able to participate in his own health care needs. Should his capacity change in any way, his Luba has been named his healthcare surrogate. There is a copy of his living will in the chart as well as the EMR * GOALS: For now, he wishes to continue with chemotherapy and explore the option, if any, of further palliative radiation to his spine. * CODE STATUS: DNR, a signed community DNR was placed in the chart and will be scanned into the EMR. His wishes were discussed at length during family meeting. * SYMPTOMS: Pain - multiple areas of bony metastasis. He has received XRT in the past which has provided some relief. Most recent imaging per oncology noted bony disease process stable 05/2018. 08/14/18 pt endorses pain "much better overall". 08/15/18 pain regimen adequate, though pt more fatigued in general *If pt is requiring significant PRN's (>/= 5-6 doses PRN), and still painful may consider increasing patch to 50 mcg. PRN dilaudid now at 2mg-- effective. no further adjustments recommended at this time. INITIAL Pharmacological recommendations 08/11/18: -Current totals: 24h oxycodone requirement = 55mg which => 82.5mg oral morphine equivalents, 24h dilaudid requirement = 1.5mg => 30mg oral morphine equivalents/// total of both = approximately 112 oral morphine equivalents *upon exploration of pain history/medication regimen with patient and , he indicates that the oxycodone has never provided significant pain relief. he also endorses understanding that the pain will never be zero. Possible that his current opiate is not effective, could consider change to different opiate such as long-acting morphine or topical fentanyl. In the past, morphine IV post-op caused nausea. PO may not have the same effect, but could consider fentanyl instead. IV dilaudid has been effective here, consider PO dilaudid PRN for breakthrough to replace PRN oxycodone. (fentanyl patch 25mcg = 60mg oral morphine) -Recommend starting fentanyl patch at 25mcg/topical Q72h. D/C long acting oxycodone as well as short acting oxycodone. If fentanyl is started today, should begin effectiveness in approximately 5-6 hours. Would NOT recommend giving PO long acting oxy the evening. Monitor for lethargy or any other signs/ symptoms of intolerance. -D/C PRN oxy and start dilaudid PO: conservative would be 1mg PO Q4h PRN breakthrough pain or more liberal 2mg PO Q4h PRN breakthrough pain, would leave 0.5mg IVP dilaudid in the case pain is not relieved with PO PRN Constipation - has potentiality for worsening symptoms due to chronic opiate use. Current regimen of Colace BID and prune juice is working but may need adjustments as pain regimen is adjusted. He reports large BM yesterday, none yet today. Palliative care will continue to follow during hospital course his conditions evolves, to assist patient/decision-maker with understanding of medical conditions, weighing benefits/burdens of treatment options, for clarification of goals of treatment. Additionally will assist with any symptoms of palliative concern. Attestation Attestation: To help prompt me to consider important information that might be impacting today's encounter and assessment, information from prior notes written by myself or my colleagues may have been "brought forward" into today's note. My signature on this note, however, is an attestation that I personally performed the exam, history, and/or decision-making noted today, and, unless otherwise indicated, the interactions with patient, family, and staff as well as the review of records all occurred today. I also attest that the listed assessment and stated plan reflect my best clinical judgment today based on the combination of historical information, prior notes, and today's exam/ interactions. When time spent is documented, it refers only to time spent today by the signer, or if indicated, combined time spent today by collaborating physician/nurse practitioner.
--- NOTE | 2018-08-15 16:32 | P.PNONC ---
Subjective Interval history: Patient has just returned to his room from the first part of his gallium scan. Per RN this is a 3-day study. Patient states he is feeling much better this afternoon. His was getting him ready to go for a walk. He has no complaints at this time. Objective Vital Signs/Intake & Output: Vital Signs 08/14/18 16:28 08/14/18 16:48 08/14/18 20:00 Temperature 98.7 F 97.8 F 97.7 F Pulse Rate 78 70 66 Respiratory Rate 20 20 16 Blood Pressure 107/56 L 112/55 L 117/63 Pulse Oximetry 97 97 96 08/14/18 21:39 08/15/18 00:11 08/15/18 00:43 Temperature 98.0 F Pulse Rate 74 Respiratory Rate 16 16 16 Blood Pressure 147/73 H Pulse Oximetry 97 08/15/18 04:59 08/15/18 05:39 08/15/18 08:00 Temperature 99.2 F 99.7 F H Pulse Rate 101 H 100 H Respiratory Rate 19 17 18 Blood Pressure 148/73 H 145/65 H Pulse Oximetry 91 L 93 L 08/15/18 12:29 Temperature 98.2 F Pulse Rate 85 Respiratory Rate 18 Blood Pressure 144/72 H Pulse Oximetry 95 Intake & Output 08/14/18 08/15/18 08/15/18 18:59 06:59 18:59 Intake Total 1300 / 1300 1140 / 1140 Output Total 750 / 750 2450 / 2450 Balance 550 / 550 -1310 / -1310 Weight 79.5 kg Intake: IV 60 / 60 NS Inj 250 ML @ 15 mls/hr IV. 60 / 60 SIG ONCE MILDRED Rx#:[id number] Oral 900 / 900 680 / 680 Intake (Blood Product) Amt 400 / 400 400 / 400 Rbc As-3 Leukoreduced Unit 400 / 400 [id number] Rbc As-3 Leukoreduced Unit 0 / 0 400 / 400 [id number] Output: Urine 750 / 750 Urine Amount (Catheter) 2450 / 2450 Suprapubic 2450 / 2450 Other: Date of Last Bowel Movement 08/14/18 08/13/18 08/14/18 # Bowel Movements 1 Result Diagrams: 08/14/18 06:41 08/14/18 06:41 Laboratory Results: Laboratory Results - last 24 hr 08/02/18 08/14/18 08:45 09:18 Blood Type A Positive Antibody Screen Negative MTS Gel Crossmatch See Detail See Detail Medications: Active Medications Generic Name Dose Route Start Last Admin Trade Name Gorge PRN Reason Stop Dose Admin Acetaminophen 650 mg 07/22/18 13:55 08/15/18 14:23 Tylenol PO 650 mg Q4H PRN Administration fever Belladonna Alkaloids/Opium 60 mg 08/02/18 15:30 08/06/18 13:53 B & O Supp RECTAL 60 mg Q6HR PRN Administration BLADDER SPASM Bupropion HCl 150 mg 07/22/18 14:00 08/15/18 08:02 Wellbutrin Xl PO 150 mg DAILY MILDRED Administration Sodium Chloride 3,000 ml/ 0 ml 07/29/18 23:03 08/06/18 13:28 Aminocaproic Acid 3,000 mg IRRIGATION 3,000 irrig.soln Q24H PRN Administration TO KEEP URINE CLEAR Diazepam 5 mg 07/22/18 13:57 08/10/18 21:21 Valium PO 5 mg DAILY PRN Administration Anxiety Docusate Sodium 100 mg 07/25/18 15:45 08/15/18 12:30 Colace PO 100 mg TID MILDRED Administration Fentanyl 1 patch 08/11/18 17:00 08/14/18 16:37 Duragesic 25 Mcg Patch.72hr T-DERMAL 1 patch Q3D MILDRED Administration Folic Acid 1 mg 07/24/18 12:00 08/15/18 08:05 Folic Acid PO 1 mg DAILY MILDRED Administration Gabapentin 300 mg 07/23/18 21:00 08/15/18 08:04 Neurontin PO 300 mg BID MILDRED Administration Hydrocortisone Acetate 1 applicatio 08/06/18 18:00 08/15/18 12:31 Anusol-Hc RECTAL 1 applicatio TID MILDRED Administration Hydromorphone HCl 0.5 mg 07/26/18 19:30 08/15/18 10:22 Dilaudid Pf Inj IV.PUSH 0.5 mg Q4H PRN Administration BREAKTHROUGH PAIN Hydromorphone HCl 2 mg 08/13/18 12:47 08/15/18 13:43 Dilaudid PO 2 mg Q4H PRN Administration PAIN SCALE 6 TO 10 Lactulose 30 ml 08/07/18 09:00 08/15/18 08:05 Lactulose Liq PO Not Given BID MILDRED Latanoprost 1 drop 07/22/18 21:00 08/14/18 20:00 Xalatan 0.005% Opth Drops EACH EYE 1 drop HS MILDRED Administration Lidocaine HCl 1 applicatio 08/05/18 17:15 08/05/18 20:46 Xylocaine 5% Oint TOPICAL 1 applicatio Q8H PRN Administration Acute Pain Lidocaine HCl 1 patch 08/06/18 15:00 08/15/18 08:05 Lidoderm 5% Patch.12 Hr T-DERMAL 1 patch DAILY MILDRED Administration Patch Removal 1 each 08/06/18 21:00 08/14/18 20:00 Remove Old Patch T-DERMAL 1 each HS MILDRED Administration Patch Removal 1 each 08/14/18 16:11 08/14/18 16:40 Remove Old Patch T-DERMAL 1 each Q3D MILDRED Administration Tenofovir Disoproxil Fumarate 300 mg 07/24/18 09:00 08/15/18 08:05 Viread PO 300 mg EVERY OTHER DAY MILDRED Administration Tolterodine Tartrate 4 mg 07/24/18 13:00 08/15/18 08:05 Detrol La PO 4 mg DAILY MIDLRED Administration Vitamin D 2,000 unit 07/25/18 09:00 08/15/18 08:06 Vitamin D3 PO 2,000 unit DAILY MILDRED Administration Objective Remarks: GENERAL: Elderly male patient, lying in bed, no acute distress. SKIN: Warm and dry. HEAD: Normocephalic. EYES: No scleral icterus. No injection or drainage. NECK: Supple, trachea midline. CARDIOVASCULAR: Regular rate and rhythm without murmurs. RESPIRATORY: Breath sounds clear, equal bilaterally. No accessory muscle use. GASTROINTESTINAL: Abdomen soft, non-tender, nondistended. + Suprapubic cath- draining clear/yellow urine. EXTREMITIES: No cyanosis, or edema. MUSCULOSKELETAL: Adequate muscle tone. NEUROLOGICAL: No obvious focal deficit. Awake, alert, and oriented x3. PSYCHIATRIC: Appropriate mood and affect; insight and judgment normal. Assessment/Plan - Plan Mr. Queen Is a 73-year-old man with a diagnosis of metastatic prostate carcinoma , he has had an excellent response to combination therapy consisting of leuprolide and Xtandi. His PSA levels have been less than 0.1 ng/dL over the past several months. He has extensive metastatic disease burden involving his axial skeleton especially his pelvis. Most recent PET CT scan revealed most of his previously active metastatic disease to be dormant, he however had intense hypermetabolic activity localized to the prostate and to the bladder. In late June he underwent cystoscopy for workup of hematuria with his former urologist Dr. Parmar, no obvious cause for hematuria was identified. He is now in the hospital with fevers, hematuria and pelvic pain. Clinically he has suspected prostatitis and is on broad-spectrum antibiotics with Zosyn and levofloxacin. Urine cultures and blood cultures are negative thus far other than forced staph epidermidis. CT scan of the abdomen/pelvis revealed no obvious cause for the hematuria. Recommendations: 1. Febrile illness: Afebrile times 24 hours. Last fever was 08/14/2018 at 0 4: 00. Infectious disease is following. Antibiotics have been discontinued. Continue to monitor for signs and symptoms of infection. 2. Hematuria: Resolved. Radiation to prostate started on 08/07. Suprapubic catheter draining clear yellow urine. 3. Pain control, continue long and short acting opioids. Monitor for oversedation. Continue Anusol-Hc for rectal pain. 4. Metastatic prostate carcinoma, PSA less than 0.1; to bring in Xtandi for pt to restart. 5. Anemia: Slight decrease in hemoglobin yesterday, status post red cell transfusion. Will repeat CBC in the a.m. 6. Asterixis, hepatic encephalopathy related to chronic hep B. Lactulose has been prescribed, however patient states that he has been refusing due to it causing diarrhea. 7. Infectious disease has ordered a gallium scan. Per RN, this is a 3-day study.
--- NOTE | 2018-08-15 17:37 | P.PNIM ---
Subjective Interval history: Patient underwent another treatment of radiation today. His main complaint is not radiation but rather persisting fevers today. He is lying in bed appears weak, sweaty, tired. He will be having a 3 part gallium series to look for focus of infection and his fever of unknown origin. He has decided it makes more sense to stay here at least until tomorrow afternoon in order to complete the second most vital step of that study. Physical Exam Vital signs: Vital Signs 08/14/18 20:00 08/14/18 21:39 08/15/18 00:11 Temperature 97.7 F 98.0 F Pulse Rate 66 74 Respiratory Rate 16 16 16 Blood Pressure 117/63 147/73 H Pulse Oximetry 96 97 08/15/18 00:43 08/15/18 04:59 08/15/18 05:39 Temperature 99.2 F Pulse Rate 101 H Respiratory Rate 16 19 17 Blood Pressure 148/73 H Pulse Oximetry 91 L 08/15/18 08:00 08/15/18 12:29 08/15/18 17:20 Temperature 99.7 F H 98.2 F 97.6 F Pulse Rate 100 H 85 58 L Respiratory Rate 18 18 16 Blood Pressure 145/65 H 144/72 H 105/58 L Pulse Oximetry 93 L 95 95 Intake & Output 08/14/18 08/15/18 08/15/18 18:59 06:59 18:59 Intake Total 1300 / 1300 1140 / 1140 1661 / 1661 Output Total 750 / 750 2450 / 2450 925 / 925 Balance 550 / 550 -1310 / -1310 736 / 736 Weight 79.5 kg Intake: IV 60 / 60 NS Inj 250 ML @ 15 mls/hr IV. 60 / 60 SIG ONCE MILDRED Rx#:[id number] Oral 900 / 900 680 / 680 1661 / 1661 Intake (Blood Product) Amt 400 / 400 400 / 400 Rbc As-3 Leukoreduced Unit 400 / 400 [id number] Rbc As-3 Leukoreduced Unit 0 / 0 400 / 400 [id number] Output: Urine 750 / 750 925 / 925 Urine Amount (Catheter) 2450 / 2450 Suprapubic 2450 / 2450 Other: Date of Last Bowel Movement 08/14/18 08/13/18 08/14/18 # Bowel Movements 1 Narrative: GENERAL: AAOx3, no acute distress, adequate nutrition, sweaty, tired appearing, febrile SKIN: Warm and dry, no rashes. HEAD: Atraumatic. Normocephalic. EYES: Pupils equal, round, reactive to light. No scleral icterus. No injection or drainage. ENT: No nasal bleeding or discharge. Moist mucous membranes. Nonerythematous oropharynx. NECK: Trachea midline. No JVD. Thyroid size within normal limits. CARDIOVASCULAR: Regular rate and rhythm. No murmur, no gallops, no rubs. RESPIRATORY: Atelectasis of bilateral bases. No accessory muscle use. GASTROINTESTINAL: Abdomen soft, non-tender, nondistended, normal active bowel sounds. Suprapubic catheter MUSCULOSKELETAL: Extremities without clubbing or cyanosis. No obvious deformities. No edema. NEUROLOGICAL: Awake and alert. No obvious cranial nerve deficits. Motor grossly within normal limits. No focal deficits. Five out of 5 muscle strength in the arms and legs. Normal speech. PSYCHIATRIC: Appropriate mood and affect; insight and judgment normal. - Urinary Catheter Management Indwelling Urethral Catheter Cath placed during this visit: yes, but has since been removed by the nurse Reason for continuing: Decision to DC catheter Insertion date: 08/05/18 Insertion time: 18:00 Removal date: 08/07/18 Removal time: 08:30 Suprapubic Cath placed during this visit: yes Reason for continuing: Chronic Urinary Retention Insertion date: 08/03/18 3-way Urethral Cath placed during this visit: yes Reason for continuing: Gross Hematuria Insertion date: 08/03/18 Results - Labs CBC & Chem 7: 08/14/18 06:41 08/14/18 06:41 Laboratory Results - last 24 hr 08/14/18 09:18 MTS Gel Crossmatch See Detail - Procedures 08/03/2018 Cystoscopy with placement of suprapubic tube, cystogram 07/29/2018 Cystoscopy with fulguration of prostate bleeding Assessment and Plan - Assessment (1) Acute UTI Code(s): N39.0 - Urinary tract infection, site not specified Status: Acute (2) Prostate cancer metastatic to bone Code(s): C61 - Malignant neoplasm of prostate; C79.51 - Secondary malignant neoplasm of bone Status: Acute - Plan Mr. Queen is a pleasant 73-year-old male with a history of metastatic prostate carcinoma who was admitted to the hospital due to fever, hematuria and pelvic pain. Recurrent fevers Thought to be due to prostatitis, but now seems to be more like FUO. CMV PCR is negative. Discontinued off of antibiotics and monitoring per infectious disease Sigmoidoscopy unremarkable for any obvious source. CT lumbar spine shows multiple lytic lesions in lumbar spine from prostate cancer metastasis Infectious disease ordered Gallium study 3 part series started 08/15/2018, completed 08/17/2018 Metastatic prostate carcinoma Patient is has had good response to leuprolide and Enzalutamide (Xtandi). Thorough discussion with palliative care, patient wants comfort, but also wishes to treat his cancer aggressively Continue Fentanyl patch, continue oral Dilaudid 2 mg every 4 hours, pain is under adequate control currently Appreciate Oncology following Rectal pain Likely secondary to prostate CA mets or external hemorrhoids, sigmoidoscopy is otherwise unremarkable except for diverticulosis. Topical lidocaine added for relief of topical rectal pain Back pain Metastatic prostate cancer involving lumbar spine (seen on CT) Persistent hematuria Bilateral hydronephrosis on ultrasound left greater than right Radiation oncology is planning treatments Suprapubic catheter placement on 08/03/2018. Anemia Acute post-hemorrhagic anemia due to Genitourinary tract bleeding. s/p 2 units of PRBCs on 08/02/2018 s/p 2 units of PRBCs on 08/14/2018 Continue to monitor Hgb trend Hypocalcemia stable Acute prostatitis Completed regimen per ID DVT Prophylaxis SCD's, chemoprophylaxis contraindicated due to active hematuria Discharge planning Patient would like to go home as soon as possible, but is willing to wait for tomorrow's gallium study Family would prefer to know preliminary results prior to discharging home, but has been told they can finish the third portion of the study outpatient
[2018-08-15] MEDS: Latanoprost 0.005% Opth Drops 2.5 ML Bottle EACH EYE SCH (20:28)
[2018-08-16] MEDS: Acetaminophen 325 MG Tablet PO PRN ×2 (04:59→14:41)
[2018-08-16 05:36] LABS: Baso % (Auto) 0.3 % (0.0-2.0); Eos # (Auto) 0.2 th/mm3 (0.0-0.4); Eos % (Auto) 1.8 % (0.0-4.0); Hematocrit 28.7 % (39.0-51.0); Hemoglobin 9.7 gm/dL (13.0-17.0); Lymph # (Auto) 0.5 th/mm3 (1.0-4.8); Lymph % (Auto) 6.1 % (9.0-44.0); Mean Corpuscular HGB Conc 33.8 % (32.0-36.0); Mean Corpuscular Hemoglobin 30.6 pg (27.0-34.0); Mean Corpuscular Volume 90.6 fL (80.0-100.0); Mean Platelet Volume 6.9 fL (7.0-11.0); Mono # (Auto) 0.8 th/mm3 (0.0-0.9); Mono % (Auto) 9.8 % (0.0-8.0); Platelet Count 306 th/mm3 (150-450); Red Blood Count 3.17 mil/mm3 (4.50-5.90); Red Cell Distribution Width 15.6 % (11.6-17.2); White Blood Count 8.6 th/mm3 (4.0-11.0)
[2018-08-16 05:51] LABS: Calcium 7.3 mg/dL (8.5-10.1); Carbon Dioxide 27.4 meq/L (21.0-32.0); Potassium 3.2 meq/L (3.5-5.1)
[2018-08-16 06:10] LABS: Total Protein 6.3 g/dL (6.4-8.2)
[2018-08-16] MEDS: buPROPion 150 MG XL 24 HR Tablet PO SCH (09:04)
[2018-08-16] MEDS: Lidocaine 5% Patch T-DERMAL SCH (09:04)
[2018-08-16] MEDS: Docusate Sodium 100 MG Capsule PO SCH ×3 (09:04→17:21)
[2018-08-16] MEDS: Calcium Carbonate 500 MG Tablet PO SCH ×2 (09:05→21:46)
[2018-08-16] MEDS: Folic Acid 1 MG Tablet PO SCH (09:05)
[2018-08-16] MEDS: Tolterodine Tartrate LA 4 MG Capsule PO SCH (09:05)
[2018-08-16] MEDS: Gabapentin 300 MG Capsule PO SCH ×2 (09:05→21:46)
--- NOTE | 2018-08-16 09:57 | P.PNNP ---
Subjective Interval history: Intermittent fever. Overall his condition is about the same. Creatinine is higher however. Physical Exam Vital signs: Vital Signs 08/15/18 12:29 08/15/18 17:20 08/15/18 20:00 Temperature 98.2 F 97.6 F 98.0 F Pulse Rate 85 58 L 63 Respiratory Rate 18 16 16 Blood Pressure 144/72 H 105/58 L 112/56 L Pulse Oximetry 95 95 97 08/15/18 20:29 08/16/18 00:00 08/16/18 02:36 Temperature 97.6 F Pulse Rate 67 Respiratory Rate 17 17 16 Blood Pressure 125/68 Pulse Oximetry 98 08/16/18 04:46 08/16/18 06:13 Temperature 101.5 F H 98.0 F Pulse Rate 92 H Respiratory Rate 19 Blood Pressure 145/78 H Pulse Oximetry 94 L Intake & Output 08/15/18 08/16/18 08/16/18 18:59 06:59 18:59 Intake Total 1661 / 1661 590 / 590 Output Total 925 / 925 2100 / 2100 Balance 736 / 736 -1510 / -1510 Weight 80 kg Intake: Oral 1661 / 1661 590 / 590 Output: Urine 925 / 925 450 / 450 Urine Amount (Catheter) 1650 / 1650 Suprapubic 1650 / 1650 Other: Date of Last Bowel Movement 08/14/18 08/14/18 # Bowel Movements 1 Narrative: Chest: clear. Abdomen: soft, suprapubic catheter in place. No edema. - Urinary Catheter Management Indwelling Urethral Catheter Cath placed during this visit: yes, but has since been removed by the nurse Reason for continuing: Decision to DC catheter Insertion date: 08/05/18 Insertion time: 18:00 Removal date: 08/07/18 Removal time: 08:30 Suprapubic Cath placed during this visit: yes Reason for continuing: Chronic Urinary Retention Insertion date: 08/03/18 3-way Urethral Cath placed during this visit: yes Reason for continuing: Gross Hematuria Insertion date: 08/03/18 Assessment and Plan - Assessment (1) Acute on chronic kidney failure Code(s): N17.9 - Acute kidney failure, unspecified; N18.9 - Chronic kidney disease, unspecified Status: Acute Plan: Renal function is worse today. Monitor urine output. If continues to get worse, may need repeat imaging. Start IVF. (2) Gross hematuria Code(s): R31.0 - Gross hematuria Status: Acute Plan: Urology following. Possible bleeding from prostate. May have prostatitis. Underwent suprapubic catheter placement. Being followed by Oncology and urology. (3) Prostate cancer metastatic to bone Code(s): C61 - Malignant neoplasm of prostate; C79.51 - Secondary malignant neoplasm of bone Status: Acute Plan: Hematology/Oncology following. (4) Acute UTI Code(s): N39.0 - Urinary tract infection, site not specified Status: Acute Plan: Possible prostatitis. ID on the case. Antibiotics discontinued. (5) Fever Code(s): R50.9 - Fever, unspecified Status: Acute Plan: Currently off antibiotic. Thought to be due to tumor. - Plan (
[2018-08-16] MEDS ORDERED: Sodium Chloride 0.9% 2 ML Flush PRN IV.FLUSH (10:20)
[2018-08-16] MEDS ORDERED: Sod Phosphate/Sod Biphosphate (Adult) Enema 133 ML Bottle RECTAL ONE (11:00)
[2018-08-16] MEDS: Sodium Chloride 0.45 % Inj 1,000 ML IV.CONT SCH (13:10)
--- NOTE | 2018-08-16 17:36 | P.PNIM ---
Subjective Interval history: The patient was resting comfortably in bed. He was anxious to go home soon. He was wondering about the results of the study. Discussed with nursing. Physical Exam Vital signs: Vital Signs 08/15/18 20:00 08/15/18 20:29 08/16/18 00:00 Temperature 98.0 F 97.6 F Pulse Rate 63 67 Respiratory Rate 16 17 17 Blood Pressure 112/56 L 125/68 Pulse Oximetry 97 98 08/16/18 02:36 08/16/18 04:46 08/16/18 06:13 Temperature 101.5 F H 98.0 F Pulse Rate 92 H Respiratory Rate 16 19 Blood Pressure 145/78 H Pulse Oximetry 94 L 08/16/18 08:00 08/16/18 12:00 08/16/18 16:00 Temperature 97.5 F L 97.5 F L 98.3 F Pulse Rate 71 76 87 Respiratory Rate 16 16 16 Blood Pressure 111/56 L 140/69 101/49 L Pulse Oximetry 96 99 93 L Intake & Output 08/15/18 08/16/18 08/16/18 18:59 06:59 18:59 Intake Total 1661 / 1661 590 / 590 1440 / 1440 Output Total 925 / 925 2100 / 2100 1300 / 1300 Balance 736 / 736 -1510 / -1510 140 / 140 Weight 80 kg Intake: Oral 1661 / 1661 590 / 590 1440 / 1440 Output: Urine 925 / 925 450 / 450 1300 / 1300 Urine Amount (Catheter) 1650 / 1650 Suprapubic 1650 / 1650 Other: Date of Last Bowel Movement 08/14/18 08/14/18 08/16/18 # Bowel Movements 1 Narrative: GENERAL: No distress SKIN: Warm and dry, no rashes. HEAD: Atraumatic. Normocephalic. EYES: Pupils equal, round, reactive to light. No scleral icterus. No injection or drainage. ENT: No nasal bleeding or discharge. Moist mucous membranes. Nonerythematous oropharynx. NECK: Trachea midline. No JVD. Thyroid size within normal limits. CARDIOVASCULAR: Regular rate and rhythm. No murmur, no gallops, no rubs. RESPIRATORY: Atelectasis of bilateral bases. No accessory muscle use. GASTROINTESTINAL: Abdomen soft, non-tender, nondistended, normal active bowel sounds. Suprapubic catheter MUSCULOSKELETAL: Extremities without clubbing or cyanosis. No obvious deformities. No edema. NEUROLOGICAL: Awake and alert. No obvious cranial nerve deficits. Motor grossly within normal limits. No focal deficits. Five out of 5 muscle strength in the arms and legs. Normal speech. PSYCHIATRIC: Appropriate mood and affect; insight and judgment normal. - Urinary Catheter Management Indwelling Urethral Catheter Cath placed during this visit: yes, but has since been removed by the nurse Reason for continuing: Decision to DC catheter Insertion date: 08/05/18 Insertion time: 18:00 Removal date: 08/07/18 Removal time: 08:30 Suprapubic Cath placed during this visit: yes Reason for continuing: Chronic Urinary Retention Insertion date: 08/03/18 3-way Urethral Cath placed during this visit: yes Reason for continuing: Gross Hematuria Insertion date: 08/03/18 Results - Labs CBC & Chem 7: 08/16/18 03:42 08/16/18 03:24 Laboratory Results - last 24 hr 08/16/18 08/16/18 03:24 03:42 WBC 8.6 RBC 3.17 L Hgb 9.7 L D Hct 28.7 L MCV 90.6 MCH 30.6 MCHC 33.8 RDW 15.6 Plt Count 306 MPV 6.9 L Neut % (Auto) 82.0 H Lymph % (Auto) 6.1 L [place] % (Auto) 9.8 H Eos % (Auto) 1.8 Baso % (Auto) 0.3 Neut # (Auto) 7.0 Lymph # (Auto) 0.5 L [place] # (Auto) 0.8 Eos # (Auto) 0.2 Baso # (Auto) 0.0 WBC Differential . Differential Comment Auto diff final Sodium 143 Potassium 3.2 L Chloride 105 Carbon Dioxide 27.4 Anion Gap 11 BUN 32 H Creatinine 2.20 H Estimated GFR 29 L Random Glucose 96 Calcium 7.3 L* Prot Corrected Calcium 7.7 L Total Protein 6.3 L - Procedures 08/03/2018 Cystoscopy with placement of suprapubic tube, cystogram 07/29/2018 Cystoscopy with fulguration of prostate bleeding Assessment and Plan - Assessment (1) Acute UTI Code(s): N39.0 - Urinary tract infection, site not specified Status: Acute (2) Prostate cancer metastatic to bone Code(s): C61 - Malignant neoplasm of prostate; C79.51 - Secondary malignant neoplasm of bone Status: Acute - Plan Mr. Queen is a pleasant 73-year-old male with a history of metastatic prostate carcinoma who was admitted to the hospital due to fever, hematuria and pelvic pain. Recurrent fevers Thought to be due to prostatitis, but now seems to be more like FUO. CMV PCR is negative. Discontinued off of antibiotics and monitoring per infectious disease Sigmoidoscopy unremarkable for any obvious source. CT lumbar spine shows multiple lytic lesions in lumbar spine from prostate cancer metastasis Infectious disease ordered Gallium study 3 part series started 08/15/2018, completes 08/17/2018 Metastatic prostate carcinoma Patient is has had good response to leuprolide and Enzalutamide (Xtandi). Thorough discussion with palliative care, patient wants comfort, but also wishes to treat his cancer aggressively Continue Fentanyl patch, continue oral Dilaudid 2 mg every 4 hours, pain is under adequate control currently Appreciate Oncology following Rectal pain Likely secondary to prostate CA mets or external hemorrhoids, sigmoidoscopy is otherwise unremarkable except for diverticulosis. Topical lidocaine added for relief of topical rectal pain Back pain Metastatic prostate cancer involving lumbar spine (seen on CT) Persistent hematuria Bilateral hydronephrosis on ultrasound left greater than right Radiation oncology is planning treatments Suprapubic catheter placement on 08/03/2018. Anemia Acute post-hemorrhagic anemia due to Genitourinary tract bleeding. s/p 2 units of PRBCs on 08/02/2018 s/p 2 units of PRBCs on 08/14/2018 Continue to monitor Hgb trend Hypocalcemia stable Acute prostatitis Completed regimen per ID Renal insufficiency Acute on chronic. Nephrology consult appreciated. -IVFs per nephrology. -follow BMP. -avoid nephrotoxins. DVT Prophylaxis SCD's, chemoprophylaxis contraindicated due to active hematuria Discharge Planning: D/c with [facility] if cleared by nephrology
[2018-08-16] MEDS: Latanoprost 0.005% Opth Drops 2.5 ML Bottle EACH EYE SCH (21:50)
[2018-08-16] MEDS: Sodium Chloride 0.9% 2 ML Flush BID IV.FLUSH SCH (21:56)
[2018-08-17 05:38] LABS: Albumin 1.7 g/dL (3.4-5.0); Calcium 6.8 mg/dL (8.5-10.1); Carbon Dioxide 27.6 meq/L (21.0-32.0); Phosphorus 2.1 mg/dL (2.5-4.9); Potassium 3.2 meq/L (3.5-5.1)
[2018-08-17 05:53] LABS: Total Protein 5.9 g/dL (6.4-8.2)
[2018-08-17] MEDS: Acetaminophen 325 MG Tablet PO PRN (07:11)
--- NOTE | 2018-08-17 08:23 | P.PNONC ---
Subjective Interval history: Patient was seen and examined, vital signs, labs, microbiology, consultant in ergonomics and safety notes , imaging studies all reviewed. Subjectively; patient reports feeling warm and sweaty. He tells me he wants to go home. Temperature this morning was noted to be 100.8 F (checked while I was in the room). Patient tells me he has been trying to eat well, he has been trying to walk in the hallways. He has had no further hematuria events over the past 1 week. He tells me overall his pain is much better controlled with fentanyl patches though yesterday while walking he did experience rectal pain. He tells me he is moving his bowels reasonably well and the rectal pain does not occur when he is moving his bowels. He denies difficulty breathing, denies chest pain, denies PND or orthopnea. Objective Vital Signs/Intake & Output: Vital Signs 08/16/18 12:00 08/16/18 16:00 08/16/18 20:00 Temperature 97.5 F L 98.3 F 98.3 F Pulse Rate 76 87 64 Respiratory Rate 16 16 18 Blood Pressure 140/69 101/49 L 111/58 L Pulse Oximetry 99 93 L 96 08/17/18 00:00 08/17/18 04:00 Temperature 98.9 F 100.5 F H Pulse Rate 84 92 H Respiratory Rate 18 18 Blood Pressure 118/55 L 133/75 Pulse Oximetry 95 95 Intake & Output 08/16/18 08/17/18 08/17/18 18:59 06:59 18:59 Intake Total 1440 / 1440 440 / 440 Output Total 1300 / 1300 2300 / 2300 Balance 140 / 140 -1860 / -1860 Weight 80.5 kg Intake: Oral 1440 / 1440 440 / 440 Output: Urine 1300 / 1300 Urine Amount (Catheter) 2300 / 2300 Suprapubic 2300 / 2300 Other: Date of Last Bowel Movement 08/16/18 08/16/18 # Bowel Movements 1 Result Diagrams: 08/16/18 03:42 08/17/18 03:24 Laboratory Results: Laboratory Results - last 24 hr 08/17/18 03:24 Sodium 142 Potassium 3.2 L Chloride 105 Carbon Dioxide 27.6 Anion Gap 9 BUN 26 H Creatinine 2.15 H Estimated GFR 30 L Random Glucose 93 Calcium 6.8 L* Prot Corrected Calcium 7.4 L* Phosphorus 2.1 L Total Protein 5.9 L Albumin 1.7 L Medications: Active Medications Generic Name Dose Route Start Last Admin Trade Name Freq PRN Reason Stop Dose Admin Acetaminophen 650 mg 07/22/18 13:55 08/17/18 07:11 Tylenol PO 650 mg Q4H PRN Administration fever Belladonna Alkaloids/Opium 60 mg 08/02/18 15:30 08/06/18 13:53 B & O Supp RECTAL 60 mg Q6HR PRN Administration BLADDER SPASM Bupropion HCl 150 mg 07/22/18 14:00 08/16/18 09:04 Wellbutrin Xl PO 150 mg DAILY MILDRED Administration Sodium Chloride 3,000 ml/ 0 ml 07/29/18 23:03 08/06/18 13:28 Aminocaproic Acid 3,000 mg IRRIGATION 3,000 irrig.soln Q24H PRN Administration TO KEEP URINE CLEAR Diazepam 5 mg 07/22/18 13:57 08/10/18 21:21 Valium PO 5 mg DAILY PRN Administration Anxiety Docusate Sodium 100 mg 07/25/18 15:45 08/16/18 17:21 Colace PO 100 mg TID MILDRED Administration Fentanyl 1 patch 08/11/18 17:00 08/14/18 16:37 Duragesic 25 Mcg Patch.72hr T-DERMAL 1 patch Q3D MILDRED Administration Folic Acid 1 mg 07/24/18 12:00 08/16/18 09:05 Folic Acid PO 1 mg DAILY MILDRED Administration Gabapentin 300 mg 07/23/18 21:00 08/16/18 21:46 Neurontin PO 300 mg BID MILDRED Administration Hydrocortisone Acetate 1 applicatio 08/06/18 18:00 08/16/18 18:47 Anusol-Hc RECTAL Not Given TID MILDRED Hydromorphone HCl 0.5 mg 07/26/18 19:30 08/15/18 10:22 Dilaudid Pf Inj IV.PUSH 0.5 mg Q4H PRN Administration BREAKTHROUGH PAIN Hydromorphone HCl 2 mg 08/13/18 12:47 08/17/18 04:20 Dilaudid PO 2 mg Q4H PRN Administration PAIN SCALE 6 TO 10 Sodium Chloride 1,000 mls @ 42 mls/hr 08/16/18 10:00 08/16/18 13:10 1/2 Normal Saline Inj IV.CONT 42 mls/hr .[id number] MILDRED Administration Lactulose 30 ml 08/07/18 09:00 08/16/18 21:55 Lactulose Liq PO Not Given BID MILDRED Latanoprost 1 drop 07/22/18 21:00 08/16/18 21:50 Xalatan 0.005% Opth Drops EACH EYE 1 drop HS MILDRED Administration Lidocaine HCl 1 applicatio 08/05/18 17:15 08/05/18 20:46 Xylocaine 5% Oint TOPICAL 1 applicatio Q8H PRN Administration Acute Pain Lidocaine HCl 1 patch 08/06/18 15:00 08/16/18 09:04 Lidoderm 5% Patch.12 Hr T-DERMAL 1 patch DAILY MILDRED Administration Patch Removal 1 each 08/06/18 21:00 08/16/18 21:55 Remove Old Patch T-DERMAL 1 each HS MILDRED Administration Patch Removal 1 each 08/14/18 16:11 08/14/18 16:40 Remove Old Patch T-DERMAL 1 each Q3D MILDRED Administration Sodium Chloride 2 ml 08/16/18 21:00 08/16/18 21:56 Ns Flush IV.FLUSH Not Given BID MILDRED Tenofovir Disoproxil Fumarate 300 mg 07/24/18 09:00 08/15/18 08:05 Viread PO 300 mg EVERY OTHER DAY MILDRED Administration Tolterodine Tartrate 4 mg 07/24/18 13:00 08/16/18 09:05 Detrol La PO 4 mg DAILY MILDRED Administration Vitamin D 2,000 unit 07/25/18 09:00 08/16/18 09:05 Vitamin D3 PO 2,000 unit DAILY MILDRED Administration Objective Remarks: GENERAL: Elderly male, laying in bed, not acutely distressed, awake, alert and oriented he appears to be chronically ill. His skin is damp, he has beads of sweat on his forehead and his skin is warm to the touch. SKIN: Pale, warm and damp. HEAD: Normocephalic. EYES: Conjunctivae pale, no scleral icterus. No injection or drainage. NECK: Supple, trachea midline. No JVD or lymphadenopathy. LYMPHATIC: No adenopathy. CARDIOVASCULAR: Regular rate and rhythm without murmurs. RESPIRATORY: Breath sounds equal bilaterally. No accessory muscle use. GASTROINTESTINAL: Thin abdomen, soft, tenderness over the left lower quadrant, positive bowel sounds. Now with suprapubic catheter in place. The dressing overlying the suprapubic catheter is wet with yellow colored urine. The gauze was changed. EXTREMITIES: No cyanosis, pitting edema noted around the ankles and dependent portions of the leg. MUSCULOSKELETAL: Generally decreased muscle mass. NEUROLOGICAL: Awake, alert, oriented, he has asked direct assist type clonus involving the hands. PSYCHIATRIC: Appropriate mood and affect; insight and judgment normal. Assessment/Plan - Plan Mr. Queen Is a 73-year-old man with a diagnosis of metastatic prostate carcinoma , he has had an excellent response to combination therapy consisting of leuprolide and Xtandi. His PSA levels have been less than 0.1 ng/dL over the past several months. He has extensive metastatic disease burden involving his axial skeleton especially his pelvis. Most recent PET CT scan revealed most of his previously active metastatic disease to be dormant, he however had intense hypermetabolic activity localized to the prostate and to the bladder. In late June he underwent cystoscopy for workup of hematuria with his former urologist Dr. Parmar, no obvious cause for hematuria was identified. He is now in the hospital with fevers, hematuria and pelvic pain. Clinically he has suspected prostatitis and is on broad-spectrum antibiotics with Zosyn and levofloxacin. Urine cultures and blood cultures are negative thus far other than forced staph epidermidis. CT scan of the abdomen/pelvis revealed no obvious cause for the hematuria. Recommendations: 1. Febrile illness: Low-grade fevers noted over the past 24 hours. Patient is currently undergoing a gallium scan which is reportedly spread out over 72 hours to localize a source of infection. 2. Hematuria: Resolved. Hemoglobin hematocrit stable. 3. Pain control, continue long and short acting opioids. He has responded well to fentanyl patches. He is satisfied with his pain control. 4. Metastatic prostate carcinoma, PSA less than 0.1; to bring in Xtandi for pt to restart. 5. Anemia: H&H stable. Most recent transfusion earlier this week (about 3 days ago). 6. Asterixis, hepatic encephalopathy related to chronic hep B. Lactulose has been prescribed, however patient states that he has been refusing due to it causing diarrhea. 7. Infectious disease has ordered a gallium scan. Currently not on antibiotics other than Tenofevir for hepatitis B suppression. I believe all of his blood cultures have been negative urine cultures been negative. Possible etiologies for fever include tumor fever.
[2018-08-17] MEDS: buPROPion 150 MG XL 24 HR Tablet PO SCH (08:29)
[2018-08-17] MEDS: Folic Acid 1 MG Tablet PO SCH (08:30)
[2018-08-17] MEDS: Tenofovir 300 MG Tablet PO SCH (08:30)
[2018-08-17] MEDS: Docusate Sodium 100 MG Capsule PO SCH ×2 (08:30→16:35)
[2018-08-17] MEDS: Tolterodine Tartrate LA 4 MG Capsule PO SCH (08:30)
[2018-08-17] MEDS: Calcium Carbonate 500 MG Tablet PO SCH (08:31)
[2018-08-17] MEDS: Gabapentin 300 MG Capsule PO SCH (08:31)
[2018-08-17] MEDS: Lidocaine 5% Patch T-DERMAL SCH (08:31)
[2018-08-17] MEDS ORDERED: Sod Phosphate/Sod Biphosphate (Adult) Enema 133 ML Bottle RECTAL ONE (09:30)
[2018-08-17 10:52] VITALS: RESP 16
[2018-08-17] MEDS: Sodium Chloride 0.9% 2 ML Flush BID IV.FLUSH SCH (11:07)
--- NOTE | 2018-08-17 11:28 | NM ---
EXAM DATE: 08/15/2018 10:37 AM EDT AGE/SEX: 73 years / Male INDICATIONS: Fever of unknown origin. Patient with metastatic disease. CLINICAL DATA: This is the patient's initial encounter. Patient reports that signs and symptoms have been present for 2 months and indicates a pain score of 0/10. MEDICAL/SURGICAL HISTORY: Hypertension. Hepatitis B. Carcinoma, prostatic. Cholecystectomy. H ip replacement. COMPARISON: No prior exams available for comparison. TECHNIQUE: Whole body imaging was performed at the specified times after intravenous administration o f radiogallium. DOSE: 6.1 mCi Gallium 67 Citrate IV PLANAR IMAGIN min 3 hr , 24 hrs 48 hrs FINDINGS: Physiologic uptake is noted in the bowel and marrow with no focal abnormal collections identified. Mi ld renal and bladder activity as well. CONCLUSION: 1. Negative gallium study with no focal abnormality to suggest infection. Electronically signed by: Manav Chairez MD 08/17/2018 11:26 AM EDT
--- NOTE | 2018-08-17 12:25 | P.PNID ---
Subjective Remarks: fever up to 101.5 / 48 hrs, 100.5/24 hrs Gallium negative overall feels better no new symptoms Antibiotics: none Past Medical History: Hep B Hypertension Kidney disease Prostate cancer with bone mets S/P hip surgery Allergies/Adverse Reactions: Allergies morphine Allergy (Severe, Verified 07/22/18 11:48) MORPHINE ALLERGY ADDED 12/19/07 @1500 - N/V Objective Vital Signs 08/16/18 16:00 08/16/18 20:00 08/17/18 00:00 Temperature 98.3 F 98.3 F 98.9 F Pulse Rate 87 64 84 Respiratory Rate 16 18 18 Blood Pressure 101/49 L 111/58 L 118/55 L Pulse Oximetry 93 L 96 95 08/17/18 04:00 08/17/18 08:00 Temperature 100.5 F H 98.1 F Pulse Rate 92 H 79 Respiratory Rate 18 16 Blood Pressure 133/75 124/59 L Pulse Oximetry 95 94 L Intake & Output 08/16/18 08/17/18 08/17/18 18:59 06:59 18:59 Intake Total 1440 / 1440 440 / 440 Output Total 1300 / 1300 2300 / 2300 Balance 140 / 140 -1860 / -1860 Weight 80.5 kg Intake: Oral 1440 / 1440 440 / 440 Output: Urine 1300 / 1300 Urine Amount (Catheter) 2300 / 2300 Suprapubic 2300 / 2300 Other: Date of Last Bowel Movement 08/16/18 08/16/18 # Bowel Movements 1 Lab - Hematology Results 08/16/18 03:42 WBC 8.6 RBC 3.17 L Hgb 9.7 L D Hct 28.7 L MCV 90.6 MCH 30.6 MCHC 33.8 RDW 15.6 Plt Count 306 MPV 6.9 L Neut % (Auto) 82.0 H Lymph % (Auto) 6.1 L [place] % (Auto) 9.8 H Eos % (Auto) 1.8 Baso % (Auto) 0.3 Neut # (Auto) 7.0 Lymph # (Auto) 0.5 L [place] # (Auto) 0.8 Eos # (Auto) 0.2 Baso # (Auto) 0.0 WBC Differential . Differential Comment Auto diff final Lab - Chemistry Results 08/16/18 08/17/18 03:24 03:24 Sodium 143 142 Potassium 3.2 L 3.2 L Chloride 105 105 Carbon Dioxide 27.4 27.6 Anion Gap 11 9 BUN 32 H 26 H Creatinine 2.20 H 2.15 H Estimated GFR 29 L 30 L Random Glucose 96 93 Calcium 7.3 L* 6.8 L* Prot Corrected Calcium 7.7 L 7.4 L* Phosphorus 2.1 L Total Protein 6.3 L 5.9 L Albumin 1.7 L Imaging: ITS Impressions Abdomen/Bladder Ultrasound 07/23/18 00:00 CONCLUSION: 1. Significant debris within the bladder likely blood. Mild bilateral hydronephrosis left greater than right. Abdomen/Pelvis CT 07/24/18 00:00 CONCLUSION: 1. Abnormal bladder with increased density consistent with blood products and/ or tumor. A Engel catheter is present with a small amount of air. 2. New mild to moderate bilateral hydronephrosis. Small bilateral pleural effusions right greater than left. 3. Extensive sclerotic metastatic disease with interval progression. Lumbar Spine CT 08/11/18 00:00 CONCLUSION: 1. Diffuse sclerotic bone lesions throughout the visualized spine and sacrum. Findings are characteristic of osseous metastatic disease related to the patient 's prostate cancer. 2. There are mild degenerative changes throughout the lumbar spine with scoliosis. No spinal canal stenosis is identified. There are areas of mild to moderate neural foraminal narrowing, as above. 3. Chronic mild bilateral hydronephrosis and hydroureter. These findings appear similar to the 07/24/2018 examination. Chest X-Ray 08/12/18 10:47 CONCLUSION: Stable chest x-ray with diffuse sclerotic bone lesions. No acute pulmonary abnormality is identified. Gallium Scan Nuclear Medicine 08/15/18 00:00 CONCLUSION: 1. Negative gallium study with no focal abnormality to suggest infection. Physical Exam: GENERAL: NAD awake and alert. SKIN: Warm and dry. No rash HEAD: Atraumatic. Normocephalic. EYES: Pupils equal and round. No scleral icterus. No injection or drainage. ENT: No nasal bleeding or discharge. Mucous membranes pink and moist. CARDIOVASCULAR: Regular rate and rhythm. RESPIRATORY: No accessory muscle use. Clear to auscultation. Breath sounds equal bilaterally. GASTROINTESTINAL: Abdomen soft, tender to palpation in lower quadrants w/o guarding or rebound lMUSCULOSKELETAL: Extremities without clubbing, cyanosis, No calf tenderness. +1-2 soft pitting edema : SP cath in place with clear yellow urine NEUROLOGICAL: awake, alert No obvious cranial nerve deficits. Motor grossly within normal limits. Five out of 5 muscle strength in the arms and legs. Normal speech. PSYCHIATRIC: calm, cooperative Assessment and Plan - Plan Impression Metastatic prostate cancer FUO (6 weeks) - clare from cancer - all w/u including Gallium scan negative for infection Hematuria Probably UTI - Staph epi not a typical pathogen GENI - slighly better Persistent fever ? tumor fever rectal pain no e/o proctitis on Felx sig Recommendation OK to dc home from ID standpoint cont off abx symptomatic fever relief Pt was instructed to report to MD if new symptoms, change in MS, new pain, or persistent high grade fever. Ruben Gill RN pt and his
[2018-08-17] MEDS ORDERED: Potassium Phosphate 500 MG Soluble Tablet PO ONE (12:37)
--- NOTE | 2018-08-17 12:42 | P.PNNP ---
Subjective Interval history: Renal function is slightly better. Given IVF. Physical Exam Vital signs: Vital Signs 08/16/18 16:00 08/16/18 20:00 08/17/18 00:00 Temperature 98.3 F 98.3 F 98.9 F Pulse Rate 87 64 84 Respiratory Rate 16 18 18 Blood Pressure 101/49 L 111/58 L 118/55 L Pulse Oximetry 93 L 96 95 08/17/18 04:00 08/17/18 08:00 Temperature 100.5 F H 98.1 F Pulse Rate 92 H 79 Respiratory Rate 18 16 Blood Pressure 133/75 124/59 L Pulse Oximetry 95 94 L Intake & Output 08/16/18 08/17/18 08/17/18 18:59 06:59 18:59 Intake Total 1440 / 1440 440 / 440 Output Total 1300 / 1300 2300 / 2300 Balance 140 / 140 -1860 / -1860 Weight 80.5 kg Intake: Oral 1440 / 1440 440 / 440 Output: Urine 1300 / 1300 Urine Amount (Catheter) 2300 / 2300 Suprapubic 2300 / 2300 Other: Date of Last Bowel Movement 08/16/18 08/16/18 # Bowel Movements 1 Narrative: GENERAL: No distress SKIN: Warm and dry, no rashes. HEAD: Atraumatic. Normocephalic. EYES: Pupils equal, round, reactive to light. No scleral icterus. No injection or drainage. ENT: No nasal bleeding or discharge. Moist mucous membranes. Nonerythematous oropharynx. NECK: Trachea midline. No JVD. Thyroid size within normal limits. CARDIOVASCULAR: Regular rate and rhythm. No murmur, no gallops, no rubs. RESPIRATORY: Atelectasis of bilateral bases. No accessory muscle use. GASTROINTESTINAL: Abdomen soft, non-tender, nondistended, normal active bowel sounds. Suprapubic catheter. Extremities: No edema. - Urinary Catheter Management Indwelling Urethral Catheter Cath placed during this visit: yes, but has since been removed by the nurse Reason for continuing: Decision to DC catheter Insertion date: 08/05/18 Insertion time: 18:00 Removal date: 08/07/18 Removal time: 08:30 Suprapubic Cath placed during this visit: yes Reason for continuing: Hourly intake/output Insertion date: 08/03/18 3-way Urethral Cath placed during this visit: yes Reason for continuing: Gross Hematuria Insertion date: 08/03/18 Assessment and Plan - Assessment (1) Acute on chronic kidney failure Code(s): N17.9 - Acute kidney failure, unspecified; N18.9 - Chronic kidney disease, unspecified Status: Acute Plan: Renal function is slightly better/stable. This may be his new baseline. Replace potassium and phosphorus. Possible discharge today. Avoid nephrotoxic agents. (2) Gross hematuria Code(s): R31.0 - Gross hematuria Status: Acute Plan: Urology following. Possible bleeding from prostate. May have prostatitis. Underwent suprapubic catheter placement. Being followed by Oncology and urology. (3) Prostate cancer metastatic to bone Code(s): C61 - Malignant neoplasm of prostate; C79.51 - Secondary malignant neoplasm of bone Status: Acute Plan: Hematology/Oncology following. (4) Acute UTI Code(s): N39.0 - Urinary tract infection, site not specified Status: Acute Plan: Possible prostatitis. ID on the case. Antibiotics discontinued. (5) Fever Code(s): R50.9 - Fever, unspecified Status: Acute Plan: Currently off antibiotic. Thought to be due to tumor. - Plan (
--- NOTE | 2018-08-17 13:04 | P.DS ---
Date of admission: 07/22/18 13:44 Primary care physician: Marcelo Cote MD Anticipated date of discharge: 08/17/18 Brief History from admission: patient is a 73 y/o male with history of prostate cancer, hypertension who presented to ER with generalized weakness. information was obtained from the family at the bedside. he's under the care of and currently receiving chemotherapy. reportedly he had some hematuria few weeks ago. he was seen by his urologist and had palacios catheter for about a week. hematuria resolved and he started to do intermittent self-catheterization. he started to have intermittent gross hematuria about a week ago again. he's had some suprapubic pain. he had worsening generalized weakness and reportedly had a fall last night. he had a fever this morning and had some chills over night.he had on and off confusional episodes over the past couple of days. Patient update on day of discharge: The patient was eating lunch. He was looking forward to going home. His family was at the bedside. Their questions were asked. Discussed with infectious disease and nephrology. DS: Diagnosis - Discharge Diagnosis (1) Acute UTI Status: Acute (2) Prostate cancer metastatic to bone Status: Acute DS: Medications - Discharge Medications Prescriptions: calcium carbonate [Oyster Shell Calcium 500] 1,500 mg PO BID #60 tab cholecalciferol (vitamin D3) [Vitamin D3] 2,000 unit PO DAILY #30 tab fentanyl [Duragesic] 1 patch TRANSDERMAL Q3D #1 ea hydromorphone 2 mg PO Q4H PRN #18 tab PRN Reason: Pain Scale 6 To 10 sod phos di, mono-K phos mono [F-Sigg-Rbosrsl] 250 mg PO BID #6 tab DS: Summary Hospital Course: Mr. Queen is a pleasant 73-year-old male with a history of metastatic prostate carcinoma who was admitted to the hospital due to fever, hematuria and pelvic pain. Recurrent fevers Infectious disease was consulted. CMV PCR was negative. GI was consulted. Sigmoidoscopy unremarkable for any obvious source. Completed a regimen for prostatitis per ID. CT lumbar spine showed multiple lytic lesions in the lumbar spine from prostate cancer metastasis. Gallium study was negative. Infectious disease recommended no further antibiotics. Metastatic prostate carcinoma Palliative care was consulted. The patient wants comfort, but also wishes to treat his cancer aggressively. We continued a Fentanyl patch along with oral Dilaudid 2 mg every 4 hours as needed per palliative recommendations. E-Forcse was checked prior to prescribing meds. Oncology was consulted and will follow up with the patient as an outpt. The pt will continue his medication and radiation regimen. Rectal pain GI was consulted. Sigmoidoscopy significant for external hemorrhoids and diverticulosis. Topical lidocaine added for relief of rectal pain Persistent hematuria Bilateral hydronephrosis on ultrasound left greater than right. Radiation oncology is planning treatments. Urology was consulted and a suprapubic catheter was placed on 08/03/2018. The pt will follow up with urology as an outpt. Anemia The pt received blood transfusions as needed. He will follow up with hematology. Hypocalcemia/ Hypokalemia/ Hypophosphatemia Monitored and repleted. The pt will follow up with nephrology as an outpt. Renal insufficiency Acute on chronic. Nephrology was consulted. He received IVFs. He will follow up with nephrology as an outpt. - Time Spent with Patient Total time spent providing and/or coordinating discharge services: Greater than 30 minutes - Quality: VTE Deep Vein Thrombosis/Pulmonary Embolism Present on Admission: No Exam Vital signs: Vital Signs 08/16/18 16:00 08/16/18 20:00 08/17/18 00:00 Temperature 98.3 F 98.3 F 98.9 F Pulse Rate 87 64 84 Respiratory Rate 16 18 18 Blood Pressure 101/49 L 111/58 L 118/55 L Pulse Oximetry 93 L 96 95 08/17/18 04:00 08/17/18 08:00 08/17/18 12:00 Temperature 100.5 F H 98.1 F 98.5 F Pulse Rate 92 H 79 71 Respiratory Rate 18 16 16 Blood Pressure 133/75 124/59 L 121/67 Pulse Oximetry 95 94 L 98 Intake & Output 08/16/18 08/17/18 08/17/18 18:59 06:59 18:59 Intake Total 1440 / 1440 440 / 440 Output Total 1300 / 1300 2300 / 2300 Balance 140 / 140 -1860 / -1860 Weight 80.5 kg Intake: Oral 1440 / 1440 440 / 440 Output: Urine 1300 / 1300 Urine Amount (Catheter) 2300 / 2300 Suprapubic 2300 / 2300 Other: Date of Last Bowel Movement 08/16/18 08/16/18 # Bowel Movements 1 Narrative: GENERAL: No distress SKIN: Warm and dry, no rashes. HEAD: Atraumatic. Normocephalic. EYES: Pupils equal, round, reactive to light. No scleral icterus. No injection or drainage. ENT: No nasal bleeding or discharge. Moist mucous membranes. Nonerythematous oropharynx. NECK: Trachea midline. No JVD. Thyroid size within normal limits. CARDIOVASCULAR: Regular rate and rhythm. No murmur, no gallops, no rubs. RESPIRATORY: Atelectasis of bilateral bases. No accessory muscle use. GASTROINTESTINAL: Abdomen soft, non-tender, nondistended, normal active bowel sounds. Suprapubic catheter MUSCULOSKELETAL: Extremities without clubbing or cyanosis. No obvious deformities. No edema. NEUROLOGICAL: Awake and alert. No obvious cranial nerve deficits. Motor grossly within normal limits. No focal deficits. Five out of 5 muscle strength in the arms and legs. Normal speech. PSYCHIATRIC: Appropriate mood and affect; insight and judgment normal. Results Procedures completed during hospitalization: 08/03/2018 Cystoscopy with placement of suprapubic tube, cystogram 07/29/2018 Cystoscopy with fulguration of prostate bleeding Labs on day of discharge: Labs from last 24 hours 08/17/18 03:24 Sodium 142 Potassium 3.2 L Chloride 105 Carbon Dioxide 27.6 Anion Gap 9 BUN 26 H Creatinine 2.15 H Estimated GFR 30 L Random Glucose 93 Calcium 6.8 L* Prot Corrected Calcium 7.4 L* Phosphorus 2.1 L Total Protein 5.9 L Albumin 1.7 L - Impressions ITS Impressions Abdomen/Bladder Ultrasound 07/23/18 00:00 CONCLUSION: 1. Significant debris within the bladder likely blood. Mild bilateral hydronephrosis left greater than right. Abdomen/Pelvis CT 07/24/18 00:00 CONCLUSION: 1. Abnormal bladder with increased density consistent with blood products and/ or tumor. A Palacios catheter is present with a small amount of air. 2. New mild to moderate bilateral hydronephrosis. Small bilateral pleural effusions right greater than left. 3. Extensive sclerotic metastatic disease with interval progression. Lumbar Spine CT 08/11/18 00:00 CONCLUSION: 1. Diffuse sclerotic bone lesions throughout the visualized spine and sacrum. Findings are characteristic of osseous metastatic disease related to the patient 's prostate cancer. 2. There are mild degenerative changes throughout the lumbar spine with scoliosis. No spinal canal stenosis is identified. There are areas of mild to moderate neural foraminal narrowing, as above. 3. Chronic mild bilateral hydronephrosis and hydroureter. These findings appear similar to the 07/24/2018 examination. Chest X-Ray 08/12/18 10:47 CONCLUSION: Stable chest x-ray with diffuse sclerotic bone lesions. No acute pulmonary abnormality is identified. Gallium Scan Nuclear Medicine 08/15/18 00:00 CONCLUSION: 1. Negative gallium study with no focal abnormality to suggest infection. Discharge Plan - Discharge Disposition Patient Disposition: /[facility] - Discharge Condition Condition: Stable - Discharge Order Discharge Orders: Discharge Order (Routine); Ordered 08/17/18 Ordered By: Manav Hays - Discharge Details Anticipated Discharge Date: 08/17/18 - Physicians Team Primary Care Provider: Marcelo Cote Attending Provider: Manav Hays Other Providers: Calli Gorman MD ; Baljinder Lim MD ; Junior Gant MD ; Aakash Miranda DO ; Neeraj Melendez MD ; Carson James MD ; Kailash Man MD ; Ally Corbett MD
[2018-08-17] MEDS ORDERED: Potassium Phos/Sodium Phos 250 MG Tablet PO SCH (14:00)
[2018-08-17] MEDS: Sodium Chloride 0.45 % Inj 1,000 ML IV.CONT SCH (16:13)
[2018-08-17 17:11] VITALS: BP 128/70; PULSE 75; TEMP 97.6; O2SAT 99
== END 2018-08-17 18:00 | disposition home health service (06) ==
LOC: NEPC 10:25 → NEDA 13:44 → HCIN 17:31
PROVIDERS: ADMIT Hospitalist; ATTEND Hospitalist
DX: T83.511A Infection and inflammatory reaction due to indwelling urethral catheter, initial encounter; K64.4 Residual hemorrhoidal skin tags; M54.9 Dorsalgia, unspecified; B95.7 Other staphylococcus as the cause of diseases classified elsewhere; N41.0 Acute prostatitis; K52.1 Toxic gastroenteritis and colitis; E83.51 Hypocalcemia; R26.81 Unsteadiness on feet; E87.6 Hypokalemia; E83.39 Other disorders of phosphorus metabolism; N32.0 Bladder-neck obstruction; S20.219A Contusion of unspecified front wall of thorax, initial encounter; N18.9 Chronic kidney disease, unspecified; K57.32 Diverticulitis of large intestine without perforation or abscess without bleeding; G89.3 Neoplasm related pain (acute) (chronic); R60.0 Localized edema; Z87.891 Personal history of nicotine dependence; Z96.649 Presence of unspecified artificial hip joint; Z85.46 Personal history of malignant neoplasm of prostate; Z92.3 Personal history of irradiation; N31.2 Flaccid neuropathic bladder, not elsewhere classified; W19.XXXA Unspecified fall, initial encounter; Z80.9 Family history of malignant neoplasm, unspecified; N02.9 Recurrent and persistent hematuria with unspecified morphologic changes; R25.1 Tremor, unspecified; Z85.830 Personal history of malignant neoplasm of bone; K64.8 Other hemorrhoids; Z88.5 Allergy status to narcotic agent; N32.89 Other specified disorders of bladder; D62 Acute posthemorrhagic anemia; S01.112A Laceration without foreign body of left eyelid and periocular area, initial encounter; N17.9 Acute kidney failure, unspecified; T45.1X5A Adverse effect of antineoplastic and immunosuppressive drugs, initial encounter; K59.00 Constipation, unspecified; I12.9 Hypertensive chronic kidney disease with stage 1 through stage 4 chronic kidney disease, or unspecified chronic kidney disease; D64.81 Anemia due to antineoplastic chemotherapy; D63.8 Anemia in other chronic diseases classified elsewhere; C61 Malignant neoplasm of prostate; T47.3X5A Adverse effect of saline and osmotic laxatives, initial encounter; S37.30XA Unspecified injury of urethra, initial encounter; C79.51 Secondary malignant neoplasm of bone; B19.10 Unspecified viral hepatitis B without hepatic coma; N13.6 Pyonephrosis

== ENCOUNTER 2018-09-19 17:20 | Inpatient (IN) ==
[2018-09-19] MEDS ORDERED: Ibuprofen 600 MG Tablet PO ONE (18:08)
--- NOTE | 2018-09-19 18:22 | ED ---
HPI General Chief complaint: Weakness Stated complaint: weakness Time Seen by Provider: 09/19/18 17:51 Source: patient and family Mode of arrival: EMS Limitations: no limitations History of Present Illness HPI Narrative: Patient is a 73-year-old male with history of metastatic prostate cancer with a suprapubic tube, presents to the emergency room with his for evaluation of generalized weakness. reports that patient has been weak since yesterday, reports that today, he could not get out of bed. tried to get him out of bed to have him take a walk around the house but he was too weak to attempt this. called for help as she was concerned for patient, reports concerns for a possible UTI. Patient denies any headache or dizziness, denies any chest pain or shortness of breath, denies any abdominal pain, denies any complaints at this time. Related Data Home Medications Medication Instructions Recorded Confirmed bimatoprost [Lumigan] 1 drp OPHTHALMIC (EYE) QPM 07/22/18 09/19/18 bupropion HCl 150 mg PO QAM 07/22/18 09/19/18 denosumab 120 mg SUB-Q Q4W 07/22/18 09/19/18 diazepam [Valium] 5 mg PO DAILY PRN 07/22/18 09/19/18 docusate sodium [Colace] 100 mg PO BID 07/22/18 09/19/18 enzalutamide 160 mg PO DAILY 07/22/18 09/19/18 folic acid 0.4 mg PO DAILY 07/22/18 09/19/18 gabapentin 300 mg PO BID 07/22/18 09/19/18 leuprolide (3 month) 0 mg IM [id number] 07/22/18 09/19/18 lubiprostone [Amitiza] 24 mcg PO BID 07/22/18 09/19/18 solifenacin [Vesicare] 10 mg PO DAILY 07/22/18 09/19/18 tenofovir disoproxil fumarate 300 mg PO EVERY OTHER DAY 07/22/18 09/19/18 [Viread] Previous Rx's Medication Instructions Recorded calcium carbonate [Oyster Shell 1,500 mg PO BID #60 tab 08/17/18 Calcium 500] cholecalciferol (vitamin D3) 2,000 unit PO DAILY #30 tab 08/17/18 [Vitamin D3] fentanyl [Duragesic] 1 patch TRANSDERMAL Q3D #1 ea 08/17/18 hydromorphone 2 mg PO Q4H PRN #18 tab 08/17/18 sod phos di, mono-K phos mono 250 mg PO BID #6 tab 08/17/18 [M-Kigg-Wgpijkz] Allergies Allergy/AdvReac Type Severity Reaction Status Date / Time morphine Allergy Severe MORPHINE Verified 08/19/18 11:17 ALLERGY ADDED 12/19/07 @1500 - N/V Review of Systems ROS: all other systems reviewed are negative [facility] Medical History Medical History Chronic pain due to neoplasm (Acute) Prostate cancer metastatic to bone (Acute) Prostate cancer (Acute) Liver nodule (Acute) Hematuria (Acute) Hepatitis B (Acute) Hypertension (Acute) Kidney disease (Acute) MDRO (multiple drug resistant organisms) resistance (Acute ~09/01/18) Urinary retention (Acute) Surgical History Surgical History S/P cholecystectomy (Acute) S/P hip replacement (Acute) Family History Family History Father Lung cancer Mother Throat cancer Social History Social History Substance History: No History of Abuse Second Hand Smoke Exposure: No Smoking Status: Never smoker Tobacco Type: Cigarettes How Often Do You Have a Drink Containing Alcohol: Never Recent Out of Country Travel within the Last 8 Weeks: No Immunization History Tetanus Immunization: Unsure Exam Narrative Exam Narrative: GENERAL: mild distress SKIN: Focused skin assessment warm/dry. HEAD: Atraumatic. Normocephalic. EYES: Pupils equal and round. No scleral icterus. No injection or drainage. ENT: No nasal bleeding or discharge. Mucous membranes pink and moist. NECK: Trachea midline. No JVD. CARDIOVASCULAR: Regular rate and rhythm. No murmur appreciated. RESPIRATORY: No accessory muscle use. Clear to auscultation. Breath sounds equal bilaterally. GASTROINTESTINAL: Abdomen soft, non-tender, nondistended. Hepatic and splenic margins not palpable. Patient with a suprapubic catheter in place with cloudy urine MUSCULOSKELETAL: No obvious deformities. No clubbing. No cyanosis. No edema. NEUROLOGICAL: Awake and alert. No obvious cranial nerve deficits. Motor grossly within normal limits. Normal speech. PSYCHIATRIC: Appropriate mood and affect; insight and judgment normal. Course Consultations Consultation #1: The patient's case including history, pertinent physical examination findings, and laboratory studies were discussed with Dr. Abel. It was agreed that the patient would be admitted to the hospitalist service. Initial Documented Vital Signs Temperature 100.6 F H 09/19/18 17:44 Pulse Rate 84 09/19/18 17:44 Respiratory Rate 18 09/19/18 17:44 Blood Pressure 158/76 H 09/19/18 17:44 Pulse Oximetry 97 09/19/18 17:44 Last Documented Vital Signs Temperature 100.6 F H 09/19/18 17:48 Pulse Rate 75 09/19/18 19:47 Respiratory Rate 18 09/19/18 17:48 Blood Pressure 146/65 H 09/19/18 19:47 Pulse Oximetry 95 09/19/18 19:47 Sign Out Sign Out Data: Patient Sign Out occurred on 09/19/18 at 19:03. Patient's care was discussed, and care was transferred from Jane Pires to Sarah Mckeon MD. Sign Out Comment: Patient signed out to care of oncoming physician, patient pending lab work as well as disposition Last updated by Jane Pires at 09/19/18 18:51 Post-Handoff Eval: The patient was checked out to me by Dr. Pires. Please see her initial history and physical. The patient presented with generalized weakness. During the course of the patient's emergency department visit, the patient was placed on a boiler control technician with oximetry and frequent blood pressure monitoring. The patient had IV access obtained and blood work sent for analysis. The patient's temperature on arrival is 100.6. The patient was initially provided ibuprofen 600 mg p.o. x1, normal saline 1 L IV fluid bolus by Dr. Pires. The patient's diagnostic studies are remarkable for a white count of 11.8, hemoglobin 8.2 which is stable compared to his last hemoglobin of 8.4, platelets 363 with 80.3 neutrophils, Chemistry is remarkable for CO2 of 19.9, BUN 61, creatinine 4.48 which is increased compared to prior levels chef assistant with an acute kidney injury. The patient will be continued on IV fluids, protein corrected calcium is 5.7 which could be contributing to the patient's generalized weakness, AST 11, ALT 10, cardiac enzymes within normal limits, albumin 1.9. The patient will be given calcium 1 g IV. Urinalysis reveals signs of infection. Lactic acid will be added to the patient's workup. Blood cultures x2 have previously been ordered. The patient will be admitted to the hospital for continued evaluation and treatment. The patient's results were discussed with the patient, including the plan of care. I explained that further testing and/ or monitoring is indicated based on the patient's history, examination, and/ or laboratory findings. Therefore, I recommended admission for additional evaluation. The patient expressed understanding and was agreeable with this plan. The patient was admitted to the hospital in guarded condition and sent to a bed under the care of the [facility] service. Medical Decision Making MDM Narrative Medical decision making narrative: During the course of the patients emergency department visit, the patients history, examination, and differential diagnosis were reviewed with the patient. The patient was placed on a boiler control technician with oximetry and frequent blood pressure monitoring. The patient had an IV access obtained and blood work sent for analysis. Blood cultures were obtained. He was given motrin for fever as his temp is 100.6 The patient was initially provided IVF Medical Screen Exam Complete: Yes Emergency Medical Condition: Yes Differential Diagnosis Differential Diagnosis: uti, electrolyte abnormality, anemia, arrythmia Medical Records Medical records reviewed: Yes I reviewed the patient's medical records. Lab Data Result diagrams: 09/19/18 18:13 09/19/18 18:13 Lab Results 09/19/18 09/19/18 09/19/18 Range/Units 18:13 18:13 18:13 WBC 11.8 H (4.0-11.0) th/mm3 RBC 2.56 L (4.50-5.90) mil/mm3 Hgb 8.2 L (13.0-17.0) gm/dL Hct 24.5 L (39.0-51.0) % MCV 95.8 (80.0-100.0) fL MCH 31.9 (27.0-34.0) pg MCHC 33.3 (32.0-36.0) % RDW 19.5 H (11.6-17.2) % Plt Count 363 (150-450) th/mm3 MPV 6.8 L (7.0-11.0) fL Neut % (Auto) 80.3 H (16.0-70.0) % Lymph % (Auto) 7.7 L (9.0-44.0) % Giles % (Auto) 9.3 H (0.0-8.0) % Eos % (Auto) 2.5 (0.0-4.0) % Baso % (Auto) 0.2 (0.0-2.0) % Neut # (Auto) 9.4 H (1.8-7.7) th/mm3 Lymph # (Auto) 0.9 L (1.0-4.8) th/mm3 Giles # (Auto) 1.1 H (0.0-0.9) th/mm3 Eos # (Auto) 0.3 (0.0-0.4) th/mm3 Baso # (Auto) 0.0 (0.0-0.2) th/mm3 WBC Differential . Differential Comment Auto diff final Sodium 138 (136-145) meq/L Potassium 3.7 (3.5-5.1) meq/L Chloride 105 (98-107) meq/L Carbon Dioxide 19.9 L (21.0-32.0) meq/L Anion Gap 13 (5-15) meq/L BUN 61 H (7-18) mg/dL Creatinine 4.48 H (0.60-1.30) mg/dL Estimated GFR 13 L (>89) mL/min Random Glucose 101 (74-106) mg/dL Calcium 5.5 L* (8.5-10.1) mg/dL Prot Corrected Calcium 5.7 L* (8.5-10.1) mg/dL Magnesium 2.3 (1.5-2.5) mg/dL Total Bilirubin 0.3 (0.2-1.0) mg/dL AST 11 L (15-37) U/L ALT 10 L (12-78) U/L Alkaline Phosphatase 106 (45-117) U/L Total Creatine Kinase 52 (39-308) U/L Troponin I Less than 0.02 L (0.02-0.05) ng/mL Total Protein 6.6 (6.4-8.2) g/dL Albumin 1.9 L (3.4-5.0) g/dL Urine Color Yellow (Yellw/Straw) Urine Clarity Turbid H (Clear) Urine pH 6.0 (5.0-8.5) Ur Specific [place] 1.009 (1.002-1.035) Urine Protein 100 H (Neg-Trace) mg/dL Urine Glucose (UA) Negative (Negative) mg/dL Urine Ketones Negative (Negative) mg/dL Urine Occult Blood Moderate H (Negative) Urine Nitrate Positive H (Negative) Urine Bilirubin Negative (Negative) Urine Urobilinogen Less than 2 (Less than 2) mg/dL Ur Leukocyte Esterase Large H (Negative) Urine RBC 68 H (0-3) /hpf Urine WBC (0-5) /hpf Urine WBC Clumps Many H (None) Urine Bacteria Many H (None) /hpf Micro UA Comment Cath-culture ind Ur Microscopic Review Not Reportable Urine Culture Comments Cath-cult indicated Discharge Plan Physicians Team ED Provider: Sarah Mckeon Primary Care Provider: Marcelo Cote Rxs /Orders / Referrals /Forms Prescriptions: No Action leuprolide (3 month) 11.25 mg Syringe Kit IM [id number] RF: 0 gabapentin 300 mg Capsule 300 mg PO BID RF: 0 tenofovir disoproxil fumarate [Viread] 300 mg Tablet 300 mg PO EVERY OTHER DAY RF: 0 diazepam [Valium] 5 mg Tablet 5 mg PO DAILY PRN (Reason: Anxiety) RF: 0 bupropion HCl 150 mg Tablet Extended Release 24 Hr 150 mg PO QAM RF: 0 solifenacin [Vesicare] 10 mg Tablet 10 mg PO DAILY RF: 0 lubiprostone [Amitiza] 24 mcg Capsule 24 mcg PO BID RF: 0 bimatoprost [Lumigan] 0.01 % Drops 1 drp OPHTHALMIC (EYE) QPM RF: 0 denosumab 120 mg/1.7 mL (70 mg/mL) Solution 120 mg SUB-Q Q4W RF: 0 enzalutamide 40 mg Capsule 160 mg PO DAILY RF: 0 folic acid 400 mcg Tablet 0.4 mg PO DAILY RF: 0 docusate sodium [Colace] 100 mg Capsule 100 mg PO BID RF: 0 calcium carbonate [Oyster Shell Calcium 500] 500 mg calcium (1,250 mg) Tablet 1,500 mg PO BID Qty: 60 RF: 0 sod phos di, mono-K phos mono [D-Hyvu-Bigxodo] 250 mg Tablet 250 mg PO BID Qty: 6 RF: 0 fentanyl [Duragesic] 25 mcg/hr Patch 72 Hour 1 patch Transdermal Q3D Qty: 1 RF: 0 cholecalciferol (vitamin D3) [Vitamin D3] 1,000 unit Tablet 2,000 unit PO DAILY Qty: 30 RF: 0 hydromorphone 2 mg Tablet 2 mg PO Q4H PRN (Reason: Pain Scale 6 To 10) Qty: 18 RF: 0 Discharge Interventions Interventions: Vital Signs Last Done: 09/19/18 19:47 Status ED Status: With Doctor
[2018-09-19] MEDS ORDERED: Sod Chloride 0.9% Inj 1,000 ML IV.SIG SCH (18:30)
[2018-09-19 18:34] LABS: Baso % (Auto) 0.2 % (0.0-2.0); Eos # (Auto) 0.3 th/mm3 (0.0-0.4); Eos % (Auto) 2.5 % (0.0-4.0); Hematocrit 24.5 % (39.0-51.0); Hemoglobin 8.2 gm/dL (13.0-17.0); Lymph # (Auto) 0.9 th/mm3 (1.0-4.8); Lymph % (Auto) 7.7 % (9.0-44.0); Mean Corpuscular HGB Conc 33.3 % (32.0-36.0); Mean Corpuscular Hemoglobin 31.9 pg (27.0-34.0); Mean Corpuscular Volume 95.8 fL (80.0-100.0); Mean Platelet Volume 6.8 fL (7.0-11.0); Mono # (Auto) 1.1 th/mm3 (0.0-0.9); Mono % (Auto) 9.3 % (0.0-8.0); Neut # (Auto) 9.4 th/mm3 (1.8-7.7); Neut % (Auto) 80.3 % (16.0-70.0); Platelet Count 363 th/mm3 (150-450); Red Blood Count 2.56 mil/mm3 (4.50-5.90); Red Cell Distribution Width 19.5 % (11.6-17.2); White Blood Count 11.8 th/mm3 (4.0-11.0)
[2018-09-19 19:16] LABS: Bacteria,Urine Many /hpf; Bilirubin,Urine Negative (Negative); Clarity,Urine Turbid (Clear); Color,Urine Yellow (Yellw/Straw); Glucose,Urine (UA) Negative (Negative); Leukocyte Esterase,Urine Large (Negative); Nitrite,Urine Positive (Negative); Specific Gravity,Urine 1.009 (1.002-1.035)
[2018-09-19 19:30] LABS: Anion Gap 13 meq/L (5-15)
[2018-09-19 19:39] LABS: Alanine Aminotransferase 10 U/L (12-78); Albumin 1.9 g/dL (3.4-5.0); Alkaline Phosphatase 106 U/L (45-117); Aspartate Aminotransferase 11 U/L (15-37); Blood Urea Nitrogen 61 mg/dL (7-18); Calcium 5.5 mg/dL (8.5-10.1); Carbon Dioxide 19.9 meq/L (21.0-32.0); Chloride 105 meq/L (98-107); Glomerular Filtration Rate 13 mL/min (>89); Glucose,Random 101 mg/dL (74-106); Magnesium 2.3 mg/dL (1.5-2.5); Potassium 3.7 meq/L (3.5-5.1); Sodium 138 meq/L (136-145); Total Protein 6.6 g/dL (6.4-8.2)
[2018-09-19 19:42] LABS: Creatine Kinase 52 U/L (39-308)
[2018-09-19] MEDS ORDERED: Calcium Gluconate Inj 1 GM in Sodium Chlor 0.9% Inj 100 ML IV.SIG ONE (19:50)
[2018-09-19] MEDS ORDERED: Bisacodyl 10 MG Supp RECTAL PRN (20:16)
[2018-09-19] MEDS: Sod Chloride 0.9% Inj 1,000 ML IV.CONT SCH (21:00)
--- NOTE | 2018-09-19 21:47 | P.HPIM ---
History of Present Illness Primary Care Physician: Marcelo Cote MD History of Present Illness: 73-year-old male with a history of metastatic prostate cancer, urinary obstruction with suprapubic catheter, who presents to the ER with a 1 day history of progressively worsening weakness, bilateral tremors. says he began to get weak last night, and this morning was barely able to walk due to weakness and unsteadiness. Patient denies any chest pain, shortness of breath, nausea, vomiting, constipation, diarrhea. Patient reportedly has chronic fevers which have continued. Patient reports chronic low back and groin pain which continues unchanged. Inpatient Certification: I certify that the inpatient services were ordered in accordance with Medicare regulations governing the order. This includes certification that hospital inpatient services are reasonable and necessary and in the case of services not specified as inpatient-only under 42 CFR 419.22(n), that they are appropriately provided as inpatient services in accordance to with the 2-midnight benchmark under 43 CFR 412.3(e) Estimated Total Length of Stay (Days): 2 Plans for Post Hospital Care: Not yet determined Review of Systems All other systems reviewed negative except as stated in HPI PMFSH - History History Provided By: Patient - Medical History Medical History: Medical History (Last Updated 09/19/18 @ 21:34 by Yoandy Abel MD) Chronic pain due to neoplasm (Acute) Prostate cancer metastatic to bone (Acute) Prostate cancer (Acute) Liver nodule Suprapubic catheter Hematuria Hepatitis B Hypertension Kidney disease MDRO (multiple drug resistant organisms) resistance Onset Date: ~09/01/18 Urinary retention - Surgical History Surgical History: Surgical History (Last Reviewed 09/19/18 @ 21:33 by Yoandy Abel MD) S/P cholecystectomy S/P hip replacement - Family History Family History: Family History (Last Reviewed 09/19/18 @ 21:34 by Yoandy Abel MD) Father Lung cancer Mother Throat cancer - Social History I have reviewed the patient's Social History: Yes - Tobacco History Second Hand Smoke Exposure: No Smoking Status: Never smoker Tobacco Type: Cigarettes - Alcohol History How Often Do You Have a Drink Containing Alcohol: Never - Substance Use History Substance History: No History of Abuse - Travel History Recent Travel Out of the Country Within the Last 8 Weeks: No - Immunization History Tetanus Immunization: Unsure Medications and Allergies Active Medications: Active Medications Al Hydroxide/Mg Hydroxide (Milk Of Magnesia Liq) 30 ml PO Q12H PRN PRN Reason: Mild Constipation Bisacodyl (Dulcolax Supp) 10 mg RECTAL DAILY PRN PRN Reason: SEVERE CONSITIPATION Bupropion HCl (Wellbutrin Sr) 150 mg PO DAILY MILDRED Calcium Carbonate (Oscal) 1,500 mg PO BID MILDRED Fentanyl (Duragesic 25 Mcg Patch.72hr) 1 patch T-DERMAL Q3D [place]ED Ceftriaxone Sodium 1,000 mg/ (Sodium Chloride) 100 mls @ 200 mls/hr IV.SIG Q24H [place] Sodium Chloride (Ns Inj) 1,000 mls @ 100 mls/hr IV.CONT .Q10H MILDRED Lactulose (Lactulose Liq) 30 ml PO DAILY PRN PRN Reason: SEVERE CONSITIPATION Latanoprost (Xalatan 0.005% Opth Drops) 1 drop EACH EYE [facility] Sennosides (Senokot) 17.2 mg PO Q12H PRN PRN Reason: Moderate Constipation Sodium Chloride (Ns Flush) 2 ml IV.FLUSH PRN PRN PRN Reason: FLUSH AFTER USING IV ACCESS Allergies Allergy/AdvReac Type Severity Reaction Status Date / Time morphine Allergy Severe MORPHINE Verified 08/19/18 11:17 ALLERGY ADDED 12/19/07 @1500 - N/V Home Medications Medication Instructions Recorded Confirmed Type bimatoprost [Lumigan] 1 drp OPHTHALMIC (EYE) QPM 07/22/18 09/19/18 History bupropion HCl 150 mg PO QAM 07/22/18 09/19/18 History denosumab 120 mg SUB-Q Q4W 07/22/18 09/19/18 History diazepam [Valium] 5 mg PO DAILY PRN 07/22/18 09/19/18 History docusate sodium [Colace] 100 mg PO BID 07/22/18 09/19/18 History enzalutamide 160 mg PO DAILY 07/22/18 09/19/18 History folic acid 0.4 mg PO DAILY 07/22/18 09/19/18 History gabapentin 300 mg PO BID 07/22/18 09/19/18 History leuprolide (3 month) 0 mg IM [id number] 07/22/18 09/19/18 History lubiprostone [Amitiza] 24 mcg PO BID 07/22/18 09/19/18 History solifenacin [Vesicare] 10 mg PO DAILY 07/22/18 09/19/18 History tenofovir disoproxil fumarate 300 mg PO EVERY OTHER DAY 07/22/18 09/19/18 History [Viread] Exam Vital signs: Vital Signs 09/19/18 17:44 09/19/18 17:48 09/19/18 18:46 Temperature 100.6 F H 100.6 F H Pulse Rate 84 81 Respiratory Rate 18 18 Blood Pressure 158/76 H 159/76 H Pulse Oximetry 97 99 95 09/19/18 19:47 Temperature Pulse Rate 75 Respiratory Rate Blood Pressure 146/65 H Pulse Oximetry 95 Intake & Output 09/19/18 09/19/18 09/20/18 06:59 18:59 06:59 Intake Total 1000 / 1000 Balance 1000 / 1000 Weight 74.843 kg Intake: IV 1000 / 1000 NS Inj 1,000 ML @ 1000 mls/hr 1000 / 1000 IV.SIG BOLUS MILDRED Rx#:[id number] Narrative: GENERAL: Sitting up in bed. Appears comfortable. SKIN: Warm and dry. HEAD: Atraumatic. Normocephalic. EYES: Pupils equal and round. No scleral icterus. No injection or drainage. ENT: No nasal bleeding or discharge. Mucous membranes pink and moist. NECK: Trachea midline. No JVD. CARDIOVASCULAR: Regular rate and rhythm. RESPIRATORY: No accessory muscle use. Clear to auscultation. Breath sounds equal bilaterally. GASTROINTESTINAL: Abdomen soft, non-tender, nondistended. Hepatic and splenic margins not palpable. Suprapubic catheter in place. No pus. Patient has stage II sacral ulcer without surrounding erythema. MUSCULOSKELETAL: Extremities without clubbing, cyanosis, or edema. No obvious deformities. Negative Chvostek sign NEUROLOGICAL: Awake and alert. No obvious cranial nerve deficits. Motor grossly within normal limits. 4 out of 5 muscle strength in the arms and legs. Normal speech. PSYCHIATRIC: Appropriate mood and affect; insight and judgment normal. Results - Labs CBC & Chem 7: 09/19/18 18:13 09/19/18 18:13 Labs: Short CBC 09/19/18 Range/Units 18:13 WBC 11.8 H (4.0-11.0) th/mm3 Hgb 8.2 L (13.0-17.0) gm/dL Hct 24.5 L (39.0-51.0) % Plt Count 363 (150-450) th/mm3 BMP 09/19/18 18:13 Sodium 138 Potassium 3.7 Chloride 105 Carbon Dioxide 19.9 L BUN 61 H Creatinine 4.48 H Calcium 5.5 L* Cardiac Enzymes 09/19/18 Range/Units 18:13 Total Creatine Kinase 52 (39-308) U/L Troponin I Less than 0.02 L (0.02-0.05) ng/mL Liver Function 09/19/18 Range/Units 18:13 Total Bilirubin 0.3 (0.2-1.0) mg/dL AST 11 L (15-37) U/L ALT 10 L (12-78) U/L Alkaline Phosphatase 106 (45-117) U/L Albumin 1.9 L (3.4-5.0) g/dL Urine 09/19/18 Range/Units 18:13 Urine Color Yellow (Yellw/Straw) Urine Clarity Turbid H (Clear) Urine pH 6.0 (5.0-8.5) Ur Specific Damar 1.009 (1.002-1.035) Urine Protein 100 H (Neg-Trace) mg/dL Urine Glucose (UA) Negative (Negative) mg/dL Caprini VTE Risk Assessment Caprini VTE Risk Assessment: Moderate/High Risk (score >= 2) Caprini Risk Assessment Model: Point Value = 1 Point Value = 2 Point Value = 3 Point Value = 5 Age 41-60 Minor surgery BMI > 25 kg/m2 Swollen legs Varicose veins or History of unexplained or recurrent spontaneous Oral contraceptives or hormone replacement Sepsis (< 1 month) Serious lung disease, including pneumonia (< 1 month) Abnormal pulmonary function Acute myocardial infarction Congestive heart failure (< 1 month) History of inflammatory bowel disease Medical patient at bed rest Age 61-74 Arthroscopic surgery Major open surgery (> 45 min) Laparoscopic surgery (> 45 min) Malignancy Confined to bed (> 72 hours) Immobilizing plaster cast Central venous access Age >= 75 History of VTE Family history of VTE Factor V Leiden Prothrombin [id number] Lupus anticoagulant Anticardiolipin antibodies Elevated serum homocysteine Heparin-induced thrombocytopenia Other congenital or acquired thrombophilia Stroke (< 1 month) Elective arthroplasty Hip, pelvis, or leg fracture Acute spinal cord injury (< 1 month) Prophylaxis Regimen: Total Risk Factor Score Risk Level Prophylaxis Regimen 0-1 Low Early ambulation 2 Moderate Order ONE of the following: *Sequential Compression Device (SCD) *Heparin 5000 units SQ BID 3-4 Higher Order ONE of the following medications: *Heparin 5000 units SQ TID *Enoxaparin/Lovenox 40 mg SQ daily (WT < 150 kg, CrCl > 30 mL/min) *Enoxaparin/Lovenox 30 mg SQ daily (WT < 150 kg, CrCl > 10-29 mL/min) *Enoxaparin/Lovenox 30 mg SQ BID (WT < 150 kg, CrCl > 30 mL/min) AND/OR *Sequential Compression Device (SCD) 5 or more Highest Order ONE of the following medications: *Heparin 5000 units SQ TID (Preferred with Epidurals) *Enoxaparin/Lovenox 40 mg SQ daily (WT < 150 kg, CrCl > 30 mL/min) *Enoxaparin/Lovenox 30 mg SQ daily (WT < 150 kg, CrCl > 10-29 mL/min) *Enoxaparin/Lovenox 30 mg SQ BID (WT < 150 kg, CrCl > 30 mL/min) AND *Sequential Compression Device (SCD) Assessment and Plan - Plan //Acute complicated UTI -Suprapubic catheter Have ordered for suprapubic catheter to be exchanged Urinalysis appears infectious with innumerable white blood cells. Follow-up urine cultures. Start on ceftriaxone. //Acute hypocalcemia. Corrected calcium 7.2. Replace and monitor. PTH pending //Acute kidney injury on chronic kidney disease stage IV. Creatinine 4.5 from baseline of 3.3. -We will give IV fluids. If she does not improve on IV fluids by morning, will consult nephrology. Also pending kidney ultrasound. //Metastatic prostate cancer and patient are concerned about being able to get their liver biopsy. Will consult oncology. Appreciate assistance. Discussed Condition With: Patient, nurse, ED physician, at bedside.
--- NOTE | 2018-09-19 23:17 | US ---
EXAM DATE: 09/19/2018 11:02 PM EST AGE/SEX: 73 years / Male INDICATIONS: Urinary obstruction. CLINICAL DATA: This is the patient's initial encounter. Patient reports that signs and symptoms have been present for 1 day and indicates a pain score of 0/10. MEDICAL/SURGICAL HISTORY: Hypertension. Hepatitis B. Renal disease. Prostate cancer metastat ic to the bone. Cholecystectomy. Bilateral hip replacement. Suprapubic catheter placement - 2017. COMPARISON: [facility], PET/CT TUMOR, 09/11/2018. . MEASUREMENTS: Right Kidney:__11.2 x 5.9 x 5.5 cm Left Kidney:__11.0 x 6.9 x 5.8 cm FINDINGS: Right Kidney: Moderate hydronephrosis. Mildly increased cortical echogenicity. No evidence of mass or stone Left Kidney: Moderate hydronephrosis. Mildly increased cortical echogenicity. No evidence of mass or stone. Bladder: Engel catheter is present. Bladder decompressed. Other: Multiple masses in the liver CONCLUSION: Moderate bilateral hydronephrosis. Electronically signed by: Joe Billings MD 09/19/2018 11:16 PM EST
[2018-09-20] MEDS: Latanoprost 0.005% Opth Drops 2.5 ML Bottle EACH EYE SCH ×2 (00:54→20:35)
[2018-09-20] MEDS: Calcium Carbonate 500 MG Tablet PO SCH ×3 (00:54→20:35)
[2018-09-20 05:22] LABS: Baso % (Auto) 0.2 % (0.0-2.0); Eos # (Auto) 0.3 th/mm3 (0.0-0.4); Eos % (Auto) 2.5 % (0.0-4.0); Hematocrit 21.3 % (39.0-51.0); Hemoglobin 7.3 gm/dL (13.0-17.0); Lymph # (Auto) 0.8 th/mm3 (1.0-4.8); Lymph % (Auto) 6.7 % (9.0-44.0); Mean Corpuscular HGB Conc 34.3 % (32.0-36.0); Mean Corpuscular Hemoglobin 32.3 pg (27.0-34.0); Mean Corpuscular Volume 94.2 fL (80.0-100.0); Mono % (Auto) 8.1 % (0.0-8.0); Neut # (Auto) 10.4 th/mm3 (1.8-7.7); Neut % (Auto) 82.5 % (16.0-70.0); Platelet Count 328 th/mm3 (150-450); Red Blood Count 2.26 mil/mm3 (4.50-5.90); Red Cell Distribution Width 19.3 % (11.6-17.2); White Blood Count 12.6 th/mm3 (4.0-11.0)
[2018-09-20 05:43] LABS: Albumin 1.9 g/dL (3.4-5.0); Calcium 6.2 mg/dL (8.5-10.1); Carbon Dioxide 18.7 meq/L (21.0-32.0); Potassium 4.3 meq/L (3.5-5.1); Total Protein 6.8 g/dL (6.4-8.2)
[2018-09-20] MEDS ORDERED: Acetaminophen 325 MG Tablet PO ONE ×2 (07:35→17:00)
[2018-09-20] MEDS: Tolterodine Tartrate LA 4 MG Capsule PO SCH (09:28)
[2018-09-20] MEDS: buPROPion 150 MG 12 HR Tablet PO SCH (09:28)
--- NOTE | 2018-09-20 11:06 | P.CONPAL ---
Consult Service: Palliative Care Requesting Physician: Junior Gant Reason for Consult: a. To assist with evaluation and management of symptoms including: Pain, nausea b. To assist medical decision maker(s) with: better understanding of current medical conditions; weighing benefits/burdens of medical treatment options; making medical treatment decisions. Primary Care Provider: Marcelo Ctoe MD History of Present Illness History of Present Illness: Mr. Queen is a 73-year-old male patient with a history of metastatic prostate cancer status post suprapubic tube placement in July,. He presented to [facility] with his on 09/19/2018 for evaluation of progressively worsening generalized weakness. Patient's reported the patient had become so weak he was unable to get out of bed; she was concerned he might have a urinary tract infection. Patient reported chronic pain in his lower back and groin. Diagnostic data: * Vital signs: Pulse 84, respirations 18, BP 158/76, oxygen saturation 97% on room air and oral temperature 100.6 * WBC: 11.8, hemoglobin 8.2, hematocrit 24.5, platelets 368, neutrophils 80.3% * Sodium: 138, potassium 3.7, chloride 105, carbon dioxide 19.9, glucose 105, calcium 5.5, magnesium 2.3, * BUN: 61, creatinine 4.48, GFR 13 * Total bilirubin: 0.3, AST 11, ALT 10, alkaline phosphatase 106 * Creatine kinase: 52 * Troponin: <0.02 * Total protein: 6.6, albumin 1.9 * Urinalysis consistent with infection; urine culture pending * Blood cultures pending Patient initially received ibuprofen 600mg PO x1 for a fever of 100.6 and 1 L normal saline bolus. Urinalysis consistent infection. Patient was started on IV antibiotics, ceftriaxone. He received 1 g calcium IV secondary to acute hypocalcemia. He was admitted for further evaluation and medical management. An ultrasound of the kidney/bladder showed mild to moderate bilateral hydronephrosis; multiple masses in the liver were noted. Oncology has been consulted. Patient has diffuse bony metastasis. PET/CT scan performed in August, revealed multiple new liver metastases. Palliative Care was consulted to assist with symptom management and to discuss with the family the benefits and burdens of his current illnesses and the options regarding future care. Patient seen and assessed in room 238 with his at bedside. Patient reports ongoing testicular and rectal pain rated 4 out of 10. No exacerbating factors. Patient was started on PRN Dilaudid at admission, but the patient states he does not like the way it makes him feel. He states his pain was being managed well with his home regimen that included fentanyl patch 25 mcg and Percocet 7.5/325 every 6 hours ATC. Requesting Dilaudid to be discontinued and Percocet restarted. Will also add PRN Lorazepam for anxiety related to pain/disease progression. Anusol HC TID for rectal pain. Patient also complaining of some nausea that he associates with administration of Dilaudid. PRN Zofran ordered. Patient/ want to proceed with liver biopsy to determine if the patient is a candidate for immunotherapy. If he is not a candidate for immunotherapy, they may consider transitioning to comfort focused care at that time. Function/Cognitive Trajectory: Patient lives at home with his . Previously, the patient was able to ambulate independently with a cane. He was independent with all ADLs and working out 2-3 times a week. Patient has become progressively more weak, now requiring assistance with ADLs Review of Systems Constitutional: Reports weakness Comments: Generalized weakness Ears, Nose, Mouth, and Throat: Denies mouth lesions, Denies mouth pain Cardiovascular: Denies chest pain, Denies shortness of breath Respiratory: Denies cough, Denies shortness of breath Gastrointestinal: Reports other Comments: Rectal pain Genitourinary: Reports blood in urine (Complaining of hematuria at recent ED visit), Reports testicle pain Neurologic: Reports tremor(s) PMFSH - History History Provided By: Patient - Medical History Medical History: Medical History (Last Updated 09/20/18 @ 10:23 by WENDY Rogers) Prostate cancer (Acute) Liver nodule Suprapubic catheter Chronic pain due to neoplasm Hematuria Hepatitis B Hypertension Kidney disease MDRO (multiple drug resistant organisms) resistance Onset Date: ~09/01/18 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 - Surgical History Surgical History: Surgical History (Last Updated 09/20/18 @ 10:23 by WENDY Rogers) S/P vasectomy (Acute) S/P cholecystectomy (Acute) S/P hip replacement - Family History Family History: Family History (Last Reviewed 09/19/18 @ 21:34 by Yoandy Abel MD) Father Lung cancer Mother Throat cancer - Social History I have reviewed the patient's Social History: Yes - Tobacco History Second Hand Smoke Exposure: No Tobacco Use In Past 30 Days: Yes Smoking Status: Former smoker Tobacco Type: Cigarettes Packs Per Day: 1 Years Smoked: 30 - Alcohol History How Often Do You Have a Drink Containing Alcohol: 4 or more times a week - Substance Use History Substance History: No History of Abuse - Substance Use Type Marijuana Status: Active Route Used: Inhalation Comment: Medically provided to patient for pain. - Travel History Recent Travel Out of the Country Within the Last 8 Weeks: No - Immunization History Tetanus Immunization: <5 Years Hx Influenza Vaccine This Season: Yes Medications and Allergies Active Medications: Active Medications Al Hydroxide/Mg Hydroxide (Milk Of Magnesia Liq) 30 ml PO Q12H PRN PRN Reason: Mild Constipation Bisacodyl (Dulcolax Supp) 10 mg RECTAL DAILY PRN PRN Reason: SEVERE CONSITIPATION Bupropion HCl (Wellbutrin Sr) 150 mg PO DAILY [facility] Last Admin: 09/20/18 09:28 Dose: 150 mg Calcium Carbonate (Oscal) 1,500 mg PO BID [facility] Last Admin: 09/20/18 09:27 Dose: 1,500 mg Fentanyl (Duragesic 25 Mcg Patch.72hr) 1 patch T-DERMAL Q3D [facility] Last Admin: 09/20/18 00:29 Dose: 1 patch Hydromorphone HCl (Dilaudid) 2 mg PO Q4H PRN PRN Reason: Pain Scale 6 To 10 Last Admin: 09/20/18 09:34 Dose: 2 mg Ceftriaxone Sodium 1,000 mg/ (Sodium Chloride) 100 mls @ 200 mls/hr IV.SIG Q24H [facility] Sodium Chloride (Ns Inj) 1,000 mls @ 100 mls/hr IV.CONT .Q10H [facility] Last Admin: 09/19/18 21:00 Dose: 100 mls/hr Lactulose (Lactulose Liq) 30 ml PO DAILY PRN PRN Reason: SEVERE CONSITIPATION Latanoprost (Xalatan 0.005% Opth Drops) 1 drop EACH EYE [facility] Last Admin: 09/20/18 00:54 Dose: 1 drop Sennosides (Senokot) 17.2 mg PO Q12H PRN PRN Reason: Moderate Constipation Sodium Chloride (Ns Flush) 2 ml IV.FLUSH PRN PRN PRN Reason: FLUSH AFTER USING IV ACCESS Tolterodine Tartrate (Detrol La) 4 mg PO DAILY [facility] Last Admin: 09/20/18 09:28 Dose: 4 mg Vitamin D (Vitamin D3) 2,000 unit PO DAILY [facility] Last Admin: 09/20/18 09:28 Dose: 2,000 unit Allergies Allergy/AdvReac Type Severity Reaction Status Date / Time morphine Allergy Severe MORPHINE Verified 08/19/18 11:17 ALLERGY ADDED 12/19/07 @1500 - N/V Home Medications Medication Instructions Recorded Confirmed Type bimatoprost [Lumigan] 1 drp OPHTHALMIC (EYE) QPM 07/22/18 09/19/18 History bupropion HCl 150 mg PO QAM 07/22/18 09/19/18 History denosumab 120 mg SUB-Q Q4W 07/22/18 09/19/18 History diazepam [Valium] 5 mg PO DAILY PRN 07/22/18 09/19/18 History docusate sodium [Colace] 100 mg PO BID 07/22/18 09/19/18 History enzalutamide 160 mg PO DAILY 07/22/18 09/19/18 History folic acid 0.4 mg PO DAILY 07/22/18 09/19/18 History gabapentin 300 mg PO BID 07/22/18 09/19/18 History leuprolide (3 month) 0 mg IM [id number] 07/22/18 09/19/18 History lubiprostone [Amitiza] 24 mcg PO BID 07/22/18 09/19/18 History solifenacin [Vesicare] 10 mg PO DAILY 07/22/18 09/19/18 History tenofovir disoproxil fumarate 300 mg PO EVERY OTHER DAY 07/22/18 09/19/18 History [Viread] Advance Directives Living Will: Yes Healthcare Surrogate: Yes Health Care Surrogate Name and Number: Luba Queen, Power of Gearman: Yes Power of Gearman Name: Luba Queen, Power of Gearman Power of Gearman Relationship to Patient: Spouse Documented care wishes: The patient has a living will that states in the presence of a terminal condition, end-state condition, or persistent vegetative state he wishes for life-prolonging procedures be withheld and withdrawn including but not limited to surgery, antibiotics, CPR, and artificially administered feeding and IVF. Today's verbally stated goals: Patient states, " I don't think I'm ready to yet." Family/friends goals: Patient was scheduled to have a liver biopsy outpatient today 09/20/2018. Patient's states they would like to proceed with a liver biopsy to determine if the patient is a candidate for immunotherapy. If the patient is not a candidate for immunotherapy, they may consider transitioning to comfort focused care at that time. Ethical and Legal Issues: No known ethical or legal issues at this time. Physical Exam Vital Signs: Vital Signs - 24 hr 09/19/18 17:44 09/19/18 17:48 09/19/18 18:46 Temperature 100.6 F H 100.6 F H Pulse Rate 84 81 Respiratory Rate 18 18 Blood Pressure 158/76 H 159/76 H Pulse Oximetry 97 99 95 09/19/18 19:47 09/20/18 01:01 09/20/18 01:33 Temperature 99.1 F Pulse Rate 75 75 Respiratory Rate 17 20 Blood Pressure 146/65 H 153/79 H Pulse Oximetry 95 98 09/20/18 01:44 09/20/18 04:53 09/20/18 06:10 Temperature 100.6 F H Pulse Rate 95 H 88 Respiratory Rate 20 18 Blood Pressure 145/67 H Pulse Oximetry 94 L 09/20/18 08:45 Temperature 99.1 F Pulse Rate 83 Respiratory Rate 16 Blood Pressure 148/70 H Pulse Oximetry 94 L I&O: Intake & Output 09/18/18 09/19/18 09/20/18 09/21/18 06:59 06:59 06:59 06:59 Intake Total 1690 / 1690 Output Total 350 / 350 Balance 1340 / 1340 Weight 79 kg Physical Exam: CONSTITUTIONAL/GENERAL: This is an adequately nourished patient, in no apparent distress. TUBES/LINES/DRAINS: PIV, suprapubic catheter SKIN: No jaundice, rashes, or lesions. Ecchymoses on upper extremities bilaterally. Skin temperature appropriate. Not diaphoretic. HEAD: Atraumatic. Normocephalic. EYES: Pupils equal and round and reactive. Extraocular motions intact. No scleral icterus. No injection or drainage. Fundi not examined. ENT: Hearing grossly normal. Nose without bleeding or purulent drainage. Throat without visible erythema, exudates, masses, or lesions. NECK: Trachea midline. Supple, nontender. No palpable thyroid enlargement or nodularity. CARDIOVASCULAR: Regular rate and rhythm without murmurs, gallops, or rubs. No JVD. Peripheral pulses symmetric. RESPIRATORY/CHEST: Symmetric, unlabored respirations. Clear to auscultation. Breath sounds equal bilaterally. No accessory muscle use. GASTROINTESTINAL: Abdomen soft, non-tender, nondistended. No hepato-splenomegaly , or palpable masses. No guarding. Bowel sounds present. GENITOURINARY: Without palpable bladder distension. Suprapubic catheter MUSCULOSKELETAL: Extremities without clubbing, cyanosis, or edema. No joint tenderness or effusion noted. No calf tenderness. No mottling or clubbing. LYMPHATICS: No palpable cervical or supraclavicular adenopathy. NEUROLOGICAL: Awake and alert. Motor and sensory grossly within normal limits. Follows commands. Cognitively sharp. Moves all extremities. PSYCHIATRIC: No obvious anxiety/depression. no apparent hallucinations or other psychotic thought process. Diagnostic Tests Laboratory: Laboratory Results - last 72 hr 09/19/18 09/19/18 09/19/18 18:13 18:13 18:13 WBC 11.8 H RBC 2.56 L Hgb 8.2 L Hct 24.5 L MCV 95.8 MCH 31.9 MCHC 33.3 RDW 19.5 H Plt Count 363 MPV 6.8 L Neut % (Auto) 80.3 H Lymph % (Auto) 7.7 L Morton % (Auto) 9.3 H Eos % (Auto) 2.5 Baso % (Auto) 0.2 Neut # (Auto) 9.4 H Lymph # (Auto) 0.9 L Morton # (Auto) 1.1 H Eos # (Auto) 0.3 Baso # (Auto) 0.0 WBC Differential . Differential Comment Auto diff final Sodium 138 Potassium 3.7 Chloride 105 Carbon Dioxide 19.9 L Anion Gap 13 BUN 61 H Creatinine 4.48 H Estimated GFR 13 L Random Glucose 101 Lactic Acid Calcium 5.5 L* Prot Corrected Calcium 5.7 L* Magnesium 2.3 Total Bilirubin 0.3 AST 11 L ALT 10 L Alkaline Phosphatase 106 Total Creatine Kinase 52 Troponin I Less than 0.02 L Total Protein 6.6 Albumin 1.9 L PTH Intact Urine Color Yellow Urine Clarity Turbid H Urine pH 6.0 Ur Specific [place] 1.009 Urine Protein 100 H Urine Glucose (UA) Negative Urine Ketones Negative Urine Occult Blood Moderate H Urine Nitrate Positive H Urine Bilirubin Negative Urine Urobilinogen Less than 2 Ur Leukocyte Esterase Large H Urine RBC 68 H Urine WBC Urine WBC Clumps Many H Urine Bacteria Many H Micro UA Comment Cath-culture ind Ur Microscopic Review Not Reportable Urine Culture Comments Cath-cult indicated Blood Type Antibody Screen MTS Gel Crossmatch 09/19/18 09/20/18 09/20/18 20:35 04:27 04:27 WBC 12.6 H RBC 2.26 L Hgb 7.3 L Hct 21.3 L MCV 94.2 MCH 32.3 MCHC 34.3 RDW 19.3 H Plt Count 328 MPV 7.0 Neut % (Auto) 82.5 H Lymph % (Auto) 6.7 L Morton % (Auto) 8.1 H Eos % (Auto) 2.5 Baso % (Auto) 0.2 Neut # (Auto) 10.4 H Lymph # (Auto) 0.8 L Morton # (Auto) 1.0 H Eos # (Auto) 0.3 Baso # (Auto) 0.0 WBC Differential . Differential Comment Auto diff final Sodium Potassium Chloride Carbon Dioxide Anion Gap BUN Creatinine Estimated GFR Random Glucose Lactic Acid 1.1 Calcium Prot Corrected Calcium Magnesium Total Bilirubin AST ALT Alkaline Phosphatase Total Creatine Kinase Troponin I Total Protein Albumin PTH Intact 574.0 H Urine Color Urine Clarity Urine pH Ur Specific [place] Urine Protein Urine Glucose (UA) Urine Ketones Urine Occult Blood Urine Nitrate Urine Bilirubin Urine Urobilinogen Ur Leukocyte Esterase Urine RBC Urine WBC Urine WBC Clumps Urine Bacteria Micro UA Comment Ur Microscopic Review Urine Culture Comments Blood Type Antibody Screen MTS Gel Crossmatch 09/20/18 09/20/18 09/20/18 04:27 08:17 08:45 WBC RBC Hgb Hct MCV MCH MCHC RDW Plt Count MPV Neut % (Auto) Lymph % (Auto) Morton % (Auto) Eos % (Auto) Baso % (Auto) Neut # (Auto) Lymph # (Auto) Morton # (Auto) Eos # (Auto) Baso # (Auto) WBC Differential Differential Comment Sodium 137 Potassium 4.3 Chloride 105 Carbon Dioxide 18.7 L Anion Gap 13 BUN 69 H Creatinine 4.93 H Estimated GFR 12 L Random Glucose 95 Lactic Acid Calcium 6.2 L* Prot Corrected Calcium 6.4 L* Magnesium Total Bilirubin 0.4 AST 12 L ALT 7 L Alkaline Phosphatase 107 Total Creatine Kinase Troponin I Total Protein 6.8 Albumin 1.9 L PTH Intact Urine Color Urine Clarity Urine pH Ur Specific [place] Urine Protein Urine Glucose (UA) Urine Ketones Urine Occult Blood Urine Nitrate Urine Bilirubin Urine Urobilinogen Ur Leukocyte Esterase Urine RBC Urine WBC Urine WBC Clumps Urine Bacteria Micro UA Comment Ur Microscopic Review Urine Culture Comments Blood Type A Positive Antibody Screen Negative MTS Gel Crossmatch See Detail Result Diagrams: 09/20/18 04:27 09/20/18 04:27 Microbiology: Microbiology 09/19/18 18:09 Blood - Peripheral Aerobic Blood Culture - Preliminary No growth in 1 day 09/19/18 18:09 Blood - Peripheral Anaerobic Blood Culture - Preliminary No growth in 1 day 09/19/18 18:15 Blood - Peripheral Aerobic Blood Culture - Preliminary No growth in 1 day 09/19/18 18:15 Blood - Peripheral Anaerobic Blood Culture - Preliminary No growth in 1 day Imaging: Abdomen/Bladder Ultrasound 09/19/18 00:00 CONCLUSION: Moderate bilateral hydronephrosis. Patient/Family Conference Present at Family Conference: Met with patient and his at bedside. Family Conference Location: Bedside Issues Discussed: * Palliative care role, purpose, approach * Additional medical, psychosocial, and spiritual history * Patients general health, functional status, and cognitive changes in the months leading up to the current hospitalization * Patient/family understanding of the current medical problems * Patient/family understanding of prognosis * Patients goals of care as best understood from advance directives and/or conversations and/or values * Current medical treatment options and benefits/burdens of those options * Likely scenarios comparing ongoing aggressive care with a transition to comfort measures only * Questions answered to the best of my ability * Palliative care contact information provided Assessment and Plan - Disease Oriented Problem List (1) Acute UTI (2) Prostate cancer metastatic to bone (3) Acute on chronic kidney failure (4) Hypocalcemia - Symptom Scale (1) Nausea & vomiting 0-10 Scale: 4 Pertinent Non-Medical Issues: Psychosocial: for 30+ years and currently lives at home. The couple have one daughter together. 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 The patient loves the arts and attended art festivals yearly with his . Spiritual: none Legal: Living will completed. Patient's , Luba, is designated as the primary [facility] decision maker. Daughter, Mary, is the alternate healthcare surrogate decision-maker Ethical issues impacting care: Mo known ethical issues impacting care at this time Important Contacts: Luba Queen, /[facility] [phone] or [phone] Mary Queen, daughter/alternate [facility] [phone] Prognosis: Patient has a history of metastatic prostate cancer. In recent months his functional status has deteriorated, and he is requiring increased assistance with ADLs. He appears to have disease progression as multiple lesions were noted in the liver on recent PET/CT scan. Plan for liver biopsy to determine if the patient is a candidate for immunotherapy. Unfortunately, this patient is at high risk for further decline and mortality. If/when his medical treatment goals become comfort oriented, hospice would be an appropriate option for this patient. Code Status: Full Code Plan: * FULL CODE * Decision making: Mr. Queen is currently able to participate in medical decision making. Should his capacity change, his (Luba) is designated as the healthcare surrogate decision-maker. * Patient does not feel "ready to ." He would like a liver biopsy to determine if he is a candidate for immunotherapy. If he is not a candidate for immunotherapy, he may consider transitioning to comfort focused care at that time. * Discussed patient with RN and Dr. Ambrose * Palliative care contact information provided to the patient and his . * Symptom management: Pain: Multifactoral. Patient has a known history of prostate cancer with multiple areas of bony metastasis. He appears to have disease progression to the liver; awaiting liver biopsy. Patient reports testicular and rectal pain on exam that is rated 4 out of 10. Patient was started on PRN Dilaudid at admission, but the patient states he does not like the way it makes him feel. He states his pain was being managed well with his home regimen that included fentanyl patch 25 mcg and Percocet 7.5/325 every 6 hours ATC. Requesting Dilaudid to be discontinued and Percocet restarted. Will also add PRN Lorazepam for anxiety related to pain/disease progression. Anusol HC TID for rectal pain. Nausea: Patient reporting intermittent nausea that he associates with administration of Dilaudid. Dilaudid has been discontinued. Zofran has been ordered as needed. * Palliative care will continue to follow this patient throughout his hospitalization to establish stress, assist with symptom management and clarification of medical treatment goals. Appreciation Thank you for the opportunity to participate in the care of Servando Queen. Attestation Attestation: To help prompt me to consider important information that might be impacting today's encounter and assessment, information from prior notes written by myself or my colleagues may have been "brought forward" into today's note. My signature on this note, however, is an attestation that I personally performed the exam, history, and/or decision-making noted today, and, unless otherwise indicated, the interactions with patient, family, and staff as well as the review of records all occurred today. I also attest that the listed assessment and stated plan reflect my best clinical judgment today based on the combination of historical information, prior notes, and today's exam/ interactions. When time spent is documented, it refers only to time spent today by the signer, or if indicated, combined time spent today by collaborating physician/nurse practitioner.
--- NOTE | 2018-09-20 11:47 | P.PNIM ---
Subjective Interval history: Patient says he feels weak. He does not have any other complaints today. Physical Exam Vital signs: Vital Signs 09/19/18 17:44 09/19/18 17:48 09/19/18 18:46 Temperature 100.6 F H 100.6 F H Pulse Rate 84 81 Respiratory Rate 18 18 Blood Pressure 158/76 H 159/76 H Pulse Oximetry 97 99 95 09/19/18 19:47 09/20/18 01:01 09/20/18 01:33 Temperature 99.1 F Pulse Rate 75 75 Respiratory Rate 17 20 Blood Pressure 146/65 H 153/79 H Pulse Oximetry 95 98 09/20/18 01:44 09/20/18 04:53 09/20/18 06:10 Temperature 100.6 F H Pulse Rate 95 H 88 Respiratory Rate 20 18 Blood Pressure 145/67 H Pulse Oximetry 94 L 09/20/18 08:45 Temperature 99.1 F Pulse Rate 83 Respiratory Rate 16 Blood Pressure 148/70 H Pulse Oximetry 94 L Intake & Output 09/19/18 09/20/18 09/20/18 18:59 06:59 18:59 Intake Total 1690 / 1690 Output Total 350 / 350 Balance 1340 / 1340 Weight 74.843 kg 79 kg Intake: IV 1210 / 1210 Calcium Gluconate Inj 1 GM In 110 / 110 NS Inj 100 ML @ 110 mls/hr IV. SIG ONCE ONE Rx#:[id number] NS Inj 1,000 ML @ 1000 mls/hr 1000 / 1000 IV.SIG BOLUS [facility] Rx#:[id number] Rocephin Inj 1,000 MG In NS Inj 100 / 100 100 ML @ 200 mls/hr IV.SIG ONCE ONE Rx#:[id number] Oral 480 / 480 Output: Urine Amount (Catheter) 350 / 350 Suprapubic 350 / 350 Other: Date of Last Bowel Movement 09/19/18 09/19/18 Weight On Admission 79 kg Narrative: General patient says he feels weak. HEENT extraocular movements are intact, clear oropharyngeal mucosa, no JVD Cardiovascular S1-S2 audible, RRR, no murmurs rubs or gallops Respiratory clear to auscultation bilaterally Abdomen soft, nontender, nondistended, normal bowel sounds, suprapubic catheter is in place. Extremities no edema 2+ distal pulses in bilateral upper and lower extremities Neuro cranial nerves II through XII intact - Urinary Catheter Management Suprapubic Cath placed during this visit: yes Reason for continuing: Chronic Urinary Retention Insertion date: 09/20/18 Insertion time: 03:20 Results - Labs CBC & Chem 7: 09/20/18 04:27 09/20/18 04:27 Laboratory Results - last 24 hr 09/19/18 09/19/18 09/19/18 18:13 18:13 18:13 WBC 11.8 H RBC 2.56 L Hgb 8.2 L Hct 24.5 L MCV 95.8 MCH 31.9 MCHC 33.3 RDW 19.5 H Plt Count 363 MPV 6.8 L Neut % (Auto) 80.3 H Lymph % (Auto) 7.7 L Jerome % (Auto) 9.3 H Eos % (Auto) 2.5 Baso % (Auto) 0.2 Neut # (Auto) 9.4 H Lymph # (Auto) 0.9 L Jerome # (Auto) 1.1 H Eos # (Auto) 0.3 Baso # (Auto) 0.0 WBC Differential . Differential Comment Auto diff final Sodium 138 Potassium 3.7 Chloride 105 Carbon Dioxide 19.9 L Anion Gap 13 BUN 61 H Creatinine 4.48 H Estimated GFR 13 L Random Glucose 101 Lactic Acid Calcium 5.5 L* Prot Corrected Calcium 5.7 L* Magnesium 2.3 Total Bilirubin 0.3 AST 11 L ALT 10 L Alkaline Phosphatase 106 Total Creatine Kinase 52 Troponin I Less than 0.02 L Total Protein 6.6 Albumin 1.9 L PTH Intact Urine Color Yellow Urine Clarity Turbid H Urine pH 6.0 Ur Specific [place] 1.009 Urine Protein 100 H Urine Glucose (UA) Negative Urine Ketones Negative Urine Occult Blood Moderate H Urine Nitrate Positive H Urine Bilirubin Negative Urine Urobilinogen Less than 2 Ur Leukocyte Esterase Large H Urine RBC 68 H Urine WBC Urine WBC Clumps Many H Urine Bacteria Many H Micro UA Comment Cath-culture ind Ur Microscopic Review Not Reportable Urine Culture Comments Cath-cult indicated Blood Type Antibody Screen MTS Gel Crossmatch 09/19/18 09/20/18 09/20/18 20:35 04:27 04:27 WBC 12.6 H RBC 2.26 L Hgb 7.3 L Hct 21.3 L MCV 94.2 MCH 32.3 MCHC 34.3 RDW 19.3 H Plt Count 328 MPV 7.0 Neut % (Auto) 82.5 H Lymph % (Auto) 6.7 L Jerome % (Auto) 8.1 H Eos % (Auto) 2.5 Baso % (Auto) 0.2 Neut # (Auto) 10.4 H Lymph # (Auto) 0.8 L Jerome # (Auto) 1.0 H Eos # (Auto) 0.3 Baso # (Auto) 0.0 WBC Differential . Differential Comment Auto diff final Sodium Potassium Chloride Carbon Dioxide Anion Gap BUN Creatinine Estimated GFR Random Glucose Lactic Acid 1.1 Calcium Prot Corrected Calcium Magnesium Total Bilirubin AST ALT Alkaline Phosphatase Total Creatine Kinase Troponin I Total Protein Albumin PTH Intact 574.0 H Urine Color Urine Clarity Urine pH Ur Specific [place] Urine Protein Urine Glucose (UA) Urine Ketones Urine Occult Blood Urine Nitrate Urine Bilirubin Urine Urobilinogen Ur Leukocyte Esterase Urine RBC Urine WBC Urine WBC Clumps Urine Bacteria Micro UA Comment Ur Microscopic Review Urine Culture Comments Blood Type Antibody Screen MTS Gel Crossmatch 09/20/18 09/20/18 09/20/18 04:27 08:17 08:45 WBC RBC Hgb Hct MCV MCH MCHC RDW Plt Count MPV Neut % (Auto) Lymph % (Auto) Jerome % (Auto) Eos % (Auto) Baso % (Auto) Neut # (Auto) Lymph # (Auto) Jerome # (Auto) Eos # (Auto) Baso # (Auto) WBC Differential Differential Comment Sodium 137 Potassium 4.3 Chloride 105 Carbon Dioxide 18.7 L Anion Gap 13 BUN 69 H Creatinine 4.93 H Estimated GFR 12 L Random Glucose 95 Lactic Acid Calcium 6.2 L* Prot Corrected Calcium 6.4 L* Magnesium Total Bilirubin 0.4 AST 12 L ALT 7 L Alkaline Phosphatase 107 Total Creatine Kinase Troponin I Total Protein 6.8 Albumin 1.9 L PTH Intact Urine Color Urine Clarity Urine pH Ur Specific [place] Urine Protein Urine Glucose (UA) Urine Ketones Urine Occult Blood Urine Nitrate Urine Bilirubin Urine Urobilinogen Ur Leukocyte Esterase Urine RBC Urine WBC Urine WBC Clumps Urine Bacteria Micro UA Comment Ur Microscopic Review Urine Culture Comments Blood Type A Positive Antibody Screen Negative MTS Gel Crossmatch See Detail Microbiology 09/19/18 18:09 Blood - Peripheral Aerobic Blood Culture - Preliminary No growth in 1 day 09/19/18 18:09 Blood - Peripheral Anaerobic Blood Culture - Preliminary No growth in 1 day 09/19/18 18:15 Blood - Peripheral Aerobic Blood Culture - Preliminary No growth in 1 day 09/19/18 18:15 Blood - Peripheral Anaerobic Blood Culture - Preliminary No growth in 1 day - Imaging Impressions Abdomen/Bladder Ultrasound 09/19/18 00:00 CONCLUSION: Moderate bilateral hydronephrosis. Assessment and Plan - Plan This patient is a 73-year-old male with a diagnosis of metastatic prostate cancer, urinary obstruction with a suprapubic catheter. The patient presents the emergency department with a 1 day history of weakness, chills, fever. In the emergency department the patient was found to have a urinary tract. 1. Severe sepsis secondary to catheter associated urinary tract infection present on admission 2. Acute kidney injury on chronic kidney disease secondary to #1 and dehydration The patient was found to be febrile, he has an elevated WBC count, urinalysis is consistent with a urinary tract infection. I tried to look for previous urinary cultures however only one was found which was staph epidermidis likely contaminant. Will change the patient's IV antibiotics to vancomycin and ceftazidime for the catheter associated UTI. Suprapubic catheter was changed yesterday, as per the nursing staff. Continue IV fluids. Urine culture will be followed up, and IV antibiotics will be adjusted as needed. Blood cultures were drawn, will follow blood cultures. The patient has a baseline serum creatinine of 1.6 in July. Currently 4.9 up from 4.5 on admission. We will consult nephrology, would appreciate their recommendations. Patient follows up with Dr. Ridge Escobar. IV antibiotics are renally adjusted. 3. Hypocalcemia Corrected calcium 7.6 today. Continue p.o. Oscal. Follow-up a.m. labs. PTH elevated 570. Follow-up with nephrology in the recommendations. 4. Metastatic prostate cancer As per documentation the patient's and patient were concerned being able to get a liver biopsy. Oncology was consulted. Will follow up with the recommendations. Heparin for DVT prophylaxis.
[2018-09-20] MEDS ORDERED: Vancomycin Inj 1,000 MG in Sodium Chlor 0.9% Inj 250 ML IV.SIG SCH (12:00)
[2018-09-20] MEDS ORDERED: Vancomycin Consult Pharmacy OTHER PRN (13:06)
[2018-09-20] MEDS: Sod Chloride 0.9% Inj 1,000 ML IV.CONT SCH (13:55)
[2018-09-20] MEDS: SODIUM CHLOR 0.9% IV.SIG SCH (13:55)
[2018-09-20] MEDS: CEFTAZIDIME IV.SIG SCH (13:55)
[2018-09-20] MEDS ORDERED: Vancomycin Inj 1,750 MG in Sodium Chlor 0.9% Inj 500 ML IV.SIG ONE (15:00)
--- NOTE | 2018-09-20 15:55 | P.CONNP ---
<Cydney Adamson - Last Filed: 09/20/18 16:52> History of Present Illness Consult date: 09/20/18 Reason for Consult: Acute Kidney Injury Primary Care Provider: Marcelo Cote MD Chief Complaint: Weakness History of Present Illness: Patient is a 73-year-old male with a history of metastatic prostate cancer, chronic kidney disease, hypertension, hepatitis B, urinary obstruction with suprapubic catheter, who presented to the ED with progressively worsening weakness that started one day prior to admission. was at bedside and stated patient began to get weak, became unsteady, and was barely able to walk so decided to go the the ED. Patient had a renal ultrasound done 09/19/18 that showed moderate bilateral hydronephrosis and multiple masses in the liver. Patient had a urine culture 09/20/18 showing MRSA and patient is currently on contact precautions. Patient's suprapubic catheter was changed last night per the patient's . Patient stated he has chronic pain in his groin area due to prostate cancer. Patient denies any chest pain, shortness of breath, nausea, vomiting, constipation, diarrhea. Patient was previously admitted to the hospital in July for progressive weakness, hematuria, UTI, and fever and was released 08/17/18. He had a visits to the ED on 08/19/18 for leaking urine around his suprapubic cath and his cath being clogged and again on 09/14/18 for hematuria. Review of Systems All other systems reviewed negative except as stated in HPI PMFSH - History History Provided By: Patient - Medical History Medical History: Medical History (Last Updated 09/20/18 @ 10:23 by WENDY Rogers) Prostate cancer (Acute) Liver nodule Suprapubic catheter Chronic pain due to neoplasm Hematuria Hepatitis B Hypertension Kidney disease MDRO (multiple drug resistant organisms) resistance Onset Date: ~09/01/18 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 - Surgical History Surgical History: Surgical History (Last Updated 09/20/18 @ 10:23 by WENDY Rogers) S/P vasectomy (Acute) S/P cholecystectomy (Acute) S/P hip replacement - Family History Family History: Family History (Last Reviewed 09/19/18 @ 21:34 by Yoandy Abel MD) Father Lung cancer Mother Throat cancer - Tobacco History Second Hand Smoke Exposure: No Tobacco Use In Past 30 Days: Yes Smoking Status: Former smoker Tobacco Type: Cigarettes Packs Per Day: 1 Years Smoked: 30 - Alcohol History How Often Do You Have a Drink Containing Alcohol: 4 or more times a week - Substance Use History Substance History: No History of Abuse - Substance Use Type Marijuana Status: Active Route Used: Inhalation Comment: Medically provided to patient for pain. - Travel History Recent Travel Out of the Country Within the Last 8 Weeks: No - Immunization History Tetanus Immunization: <5 Years Hx Influenza Vaccine This Season: Yes Medications and Allergies Allergies Allergy/AdvReac Type Severity Reaction Status Date / Time morphine Allergy Severe MORPHINE Verified 08/19/18 11:17 ALLERGY ADDED 12/19/07 @1500 - N/V Home Medications Medication Instructions Recorded Confirmed Type bimatoprost [Lumigan] 1 drp OPHTHALMIC (EYE) QPM 07/22/18 09/19/18 History bupropion HCl 150 mg PO QAM 07/22/18 09/19/18 History denosumab 120 mg SUB-Q Q4W 07/22/18 09/19/18 History diazepam [Valium] 5 mg PO DAILY PRN 07/22/18 09/19/18 History docusate sodium [Colace] 100 mg PO BID 07/22/18 09/19/18 History enzalutamide 160 mg PO DAILY 07/22/18 09/19/18 History folic acid 0.4 mg PO DAILY 07/22/18 09/19/18 History gabapentin 300 mg PO BID 07/22/18 09/19/18 History leuprolide (3 month) 0 mg IM [id number] 07/22/18 09/19/18 History lubiprostone [Amitiza] 24 mcg PO BID 07/22/18 09/19/18 History solifenacin [Vesicare] 10 mg PO DAILY 07/22/18 09/19/18 History tenofovir disoproxil fumarate 300 mg PO EVERY OTHER DAY 07/22/18 09/19/18 History [Viread] Active Medications: Active Medications Al Hydroxide/Mg Hydroxide (Milk Of Magnesia Liq) 30 ml PO Q12H PRN PRN Reason: Mild Constipation Bisacodyl (Dulcolax Supp) 10 mg RECTAL DAILY PRN PRN Reason: SEVERE CONSITIPATION Bupropion HCl (Wellbutrin Sr) 150 mg PO DAILY [facility] Last Admin: 09/20/18 09:28 Dose: 150 mg Calcium Carbonate (Oscal) 1,500 mg PO BID [facility] Last Admin: 09/20/18 09:27 Dose: 1,500 mg Fentanyl (Duragesic 25 Mcg Patch.72hr) 1 patch T-DERMAL Q3D [facility] Last Admin: 09/20/18 00:29 Dose: 1 patch Heparin Sodium (Porcine) (Heparin Inj) 5,000 units SQ Q12HR [facility] Hydrocortisone Acetate (Anusol-Hc) 1 applicatio RECTAL TID [facility] Sodium Chloride (Ns Inj) 1,000 mls @ 125 mls/hr IV.CONT .Q8H [facility] Last Admin: 09/20/18 13:55 Dose: 100 mls/hr Ceftazidime 500 mg/ Sodium (Chloride) 100 mls @ 200 mls/hr IV.SIG Q12H [facility] Last Infusion: 09/20/18 14:46 Dose: Infused Vancomycin HCl 1,750 mg/ (Sodium Chloride) 517.5 mls @ 250 mls/hr IV.SIG ONCE ONE Stop: 09/20/18 17:04 Last Admin: 09/20/18 14:45 Dose: 250 mls/hr Lactulose (Lactulose Liq) 30 ml PO DAILY PRN PRN Reason: SEVERE CONSITIPATION Latanoprost (Xalatan 0.005% Opth Drops) 1 drop EACH EYE HS [facility] Last Admin: 09/20/18 00:54 Dose: 1 drop Lorazepam (Ativan) 0.5 mg PO Q8H PRN PRN Reason: ANXIETY Ondansetron HCl (Zofran Inj) 4 mg IV.PUSH Q8H PRN PRN Reason: NAUSEA OR VOMITING Oxycodone/Acetaminophen (Percocet 7.5/325 Mg) 1 tab PO Q6H [facility] Last Admin: 09/20/18 14:45 Dose: 1 tab Pharmacy Profile Note (Vancomycin Consult Pharmacy) 1 each OTHER UNSCH PRN PRN Reason: Pharmacy to dose Sennosides (Senokot) 17.2 mg PO Q12H PRN PRN Reason: Moderate Constipation Sodium Chloride (Ns Flush) 2 ml IV.FLUSH PRN PRN PRN Reason: FLUSH AFTER USING IV ACCESS Tolterodine Tartrate (Detrol La) 4 mg PO DAILY [facility] Last Admin: 09/20/18 09:28 Dose: 4 mg Vitamin D (Vitamin D3) 2,000 unit PO DAILY [facility] Last Admin: 09/20/18 09:28 Dose: 2,000 unit Exam Vital signs: Vital Signs 09/19/18 17:44 09/19/18 17:48 09/19/18 18:46 Temperature 100.6 F H 100.6 F H Pulse Rate 84 81 Respiratory Rate 18 18 Blood Pressure 158/76 H 159/76 H Pulse Oximetry 97 99 95 09/19/18 19:47 09/20/18 01:01 09/20/18 01:33 Temperature 99.1 F Pulse Rate 75 75 Respiratory Rate 17 20 Blood Pressure 146/65 H 153/79 H Pulse Oximetry 95 98 09/20/18 01:44 09/20/18 04:53 09/20/18 06:10 Temperature 100.6 F H Pulse Rate 95 H 88 Respiratory Rate 20 18 Blood Pressure 145/67 H Pulse Oximetry 94 L 09/20/18 08:45 09/20/18 12:38 Temperature 99.1 F 98.5 F Pulse Rate 83 79 Respiratory Rate 16 16 Blood Pressure 148/70 H 145/73 H Pulse Oximetry 94 L 96 Intake & Output 09/19/18 09/20/18 09/20/18 18:59 06:59 18:59 Intake Total 1690 / 1690 1100 / 1100 Output Total 350 / 350 Balance 1340 / 1340 1100 / 1100 Weight 74.843 kg 79 kg Intake: IV 1210 / 1210 1100 / 1100 NS Inj 1,000 ML @ 125 mls/hr IV 1000 / 1000 .CONT .Q8H [facility] Rx#:[id number] Calcium Gluconate Inj 1 GM In 110 / 110 NS Inj 100 ML @ 110 mls/hr IV. SIG ONCE ONE Rx#:[id number] NS Inj 1,000 ML @ 1000 mls/hr 1000 / 1000 IV.SIG BOLUS [facility] Rx#:[id number] Tazicef Inj 500 MG In NS Inj 100 / 100 100 ML @ 200 mls/hr IV.SIG Q12H [facility] Rx#:[id number] Rocephin Inj 1,000 MG In NS Inj 100 / 100 100 ML @ 200 mls/hr IV.SIG ONCE ONE Rx#:[id number] Oral 480 / 480 Output: Urine Amount (Catheter) 350 / 350 Suprapubic 350 / 350 Other: Date of Last Bowel Movement 09/19/18 09/19/18 Weight On Admission 79 kg - Constitutional no acute distress - Routine HEENT Exam Head: Present: normocephalic Eye: Present: EOMI, PERRL ENT: Present: mucous membranes moist - Routine Neck Exam Present: trachea midline. Absent: JVD, tracheal deviation - Routine Respiratory Exam Present: CTA bilaterally. Absent: accessory muscle use - Routine Cardiovascular Exam Present: RRR, S1, S2 - Routine Abdominal Exam Present: soft, normoactive bowel sounds. Absent: tenderness - Routine Extremities Exam Present: pulses intact, normal capillary refill. Absent: cyanosis, edema - Routine Neurological Exam Present: alert, oriented X3 Results - Lab Results 09/20/18 04:27 09/20/18 04:27 Most recent lab results Calcium 6.2 mg/dL (8.5-10.1) L* 09/20/18 04:27 Magnesium 2.3 mg/dL (1.5-2.5) 09/19/18 18:13 Assessment and Plan - Assessment (1) Acute on chronic kidney failure Code(s): N17.9 - Acute kidney failure, unspecified; N18.9 - Chronic kidney disease, unspecified Status: Acute Plan: Patient had renal ultrasound done on 09/19/18 which showed bilateral hydronephrosis. Patient has a suprapubic catheter in place and has been making urine. Hydronephrosis could be due to malfunctioning suprapubic catheter, may need bladder irrigation. Patient has history of clogged suprapubic catheter. Could also be due to extrinsic compression of ureters due lymphadenopathy. May need bilateral percutaneous nephrostomy, urology should be consulted for an evaluation. The patient's baseline serum creatinine was 2.15 in August. On 09/14/18 visit patient's Creatinine was 3.37. Currently Creatinine is 4.93. Will continue to monitor renal function. Monitor Intake and Output. . (2) Acute UTI Code(s): N39.0 - Urinary tract infection, site not specified Status: Acute Plan: Patient is on Vancomycin and Ceftazidime. Urine culture will be followed up, and IV antibiotics will be adjusted as needed. (3) Prostate cancer metastatic to bone Code(s): C61 - Malignant neoplasm of prostate; C79.51 - Secondary malignant neoplasm of bone Status: Acute Plan: As per reviewing previous documentation, the patient's and patient were concerned about getting a liver biopsy to see if the patient was a candidate for immunotherapy. Oncology was consulted. Will follow up with the recommendations. - Plan Hypocalcemia Patient was given IV calcium 09/19/18 and is currently on calcium carbonate. Will order labs: Vit D, Phosphorus, ionized calcium. Anemia Patient's Hemoglobin is 7.3, 2 units of PRBCs were ordered. 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 - Surgical History Surgical History: Surgical History (Last Updated 09/20/18 @ 10:23 by WENDY Rogers) S/P vasectomy (Acute) S/P cholecystectomy (Acute) S/P hip replacement - Family History Family History: Family History (Last Reviewed 09/19/18 @ 21:34 by Yoandy Abel MD) Father Lung cancer Mother Throat cancer Medications and Allergies Active Medications: Active Medications Al Hydroxide/Mg Hydroxide (Milk Of [place]) 30 ml PO Q12H PRN PRN Reason: Mild Constipation Bisacodyl (Dulcolax Supp) 10 mg RECTAL DAILY PRN PRN Reason: SEVERE CONSITIPATION Bupropion HCl (Wellbutrin Sr) 150 mg PO DAILY [facility] Last Admin: 09/20/18 09:28 Dose: 150 mg Calcium Carbonate (Oscal) 1,500 mg PO BID [facility] Last Admin: 09/20/18 09:27 Dose: 1,500 mg Fentanyl (Duragesic 25 Mcg Patch.72hr) 1 patch T-DERMAL Q3D [facility] Last Admin: 09/20/18 00:29 Dose: 1 patch Heparin Sodium (Porcine) (Heparin Inj) 5,000 units SQ Q12HR [facility] Hydrocortisone Acetate (Anusol-Hc) 1 applicatio RECTAL TID [facility] Sodium Chloride (Ns Inj) 1,000 mls @ 125 mls/hr IV.CONT .Q8H [facility] Last Admin: 09/20/18 13:55 Dose: 100 mls/hr Ceftazidime 500 mg/ Sodium (Chloride) 100 mls @ 200 mls/hr IV.SIG Q12H [facility] Last Infusion: 09/20/18 14:46 Dose: Infused Lactulose (Lactulose Liq) 30 ml PO DAILY PRN PRN Reason: SEVERE CONSITIPATION Latanoprost (Xalatan 0.005% Opth Drops) 1 drop EACH EYE HS [facility] Last Admin: 09/20/18 00:54 Dose: 1 drop Lorazepam (Ativan) 0.5 mg PO Q8H PRN PRN Reason: ANXIETY Ondansetron HCl (Zofran Inj) 4 mg IV.PUSH Q8H PRN PRN Reason: NAUSEA OR VOMITING Oxycodone/Acetaminophen (Percocet 7.5/325 Mg) 1 tab PO Q6H [facility] Last Admin: 09/20/18 14:45 Dose: 1 tab Pharmacy Profile Note (Vancomycin Consult Pharmacy) 1 each OTHER UNSCH PRN PRN Reason: Pharmacy to dose Sennosides (Senokot) 17.2 mg PO Q12H PRN PRN Reason: Moderate Constipation Sodium Chloride (Ns Flush) 2 ml IV.FLUSH PRN PRN PRN Reason: FLUSH AFTER USING IV ACCESS Tolterodine Tartrate (Detrol La) 4 mg PO DAILY [facility] Last Admin: 09/20/18 09:28 Dose: 4 mg Vitamin D (Vitamin D3) 2,000 unit PO DAILY [facility] Last Admin: 09/20/18 09:28 Dose: 2,000 unit Exam Vital signs: Vital Signs 09/19/18 17:44 09/19/18 17:48 09/19/18 18:46 Temperature 100.6 F H 100.6 F H Pulse Rate 84 81 Respiratory Rate 18 18 Blood Pressure 158/76 H 159/76 H Pulse Oximetry 97 99 95 09/19/18 19:47 09/20/18 01:01 09/20/18 01:33 Temperature 99.1 F Pulse Rate 75 75 Respiratory Rate 17 20 Blood Pressure 146/65 H 153/79 H Pulse Oximetry 95 98 09/20/18 01:44 09/20/18 04:53 11/07/18 06:10 Temperature 100.6 F H Pulse Rate 95 H 88 Respiratory Rate 20 18 Blood Pressure 145/67 H Pulse Oximetry 94 L 09/20/18 08:45 09/20/18 12:38 09/20/18 16:27 Temperature 99.1 F 98.5 F 97.7 F Pulse Rate 83 79 72 Respiratory Rate 16 16 18 Blood Pressure 148/70 H 145/73 H 144/69 H Pulse Oximetry 94 L 96 97 Intake & Output 09/19/18 09/20/18 09/20/18 18:59 06:59 18:59 Intake Total 1690 / 1690 1100 / 1100 Output Total 350 / 350 Balance 1340 / 1340 1100 / 1100 Weight 74.843 kg 79 kg Intake: IV 1210 / 1210 1100 / 1100 NS Inj 1,000 ML @ 125 mls/hr IV 1000 / 1000 .CONT .Q8H [facility] Rx#:[id number] Calcium Gluconate Inj 1 GM In 110 / 110 NS Inj 100 ML @ 110 mls/hr IV. SIG ONCE ONE Rx#:[id number] NS Inj 1,000 ML @ 1000 mls/hr 1000 / 1000 IV.SIG BOLUS [facility] Rx#:[id number] Tazicef Inj 500 MG In NS Inj 100 / 100 100 ML @ 200 mls/hr IV.SIG Q12H [facility] Rx#:[id number] Rocephin Inj 1,000 MG In NS Inj 100 / 100 100 ML @ 200 mls/hr IV.SIG ONCE ONE Rx#:[id number] Oral 480 / 480 Output: Urine Amount (Catheter) 350 / 350 Suprapubic 350 / 350 Other: Date of Last Bowel Movement 09/19/18 09/19/18 Weight On Admission 79 kg Results - Lab Results 09/20/18 04:27 09/20/18 04:27 Most recent lab results Calcium 6.2 mg/dL (8.5-10.1) L* 09/20/18 04:27 Magnesium 2.3 mg/dL (1.5-2.5) 09/19/18 18:13 Assessment and Plan - Assessment (1) Acute on chronic kidney failure Code(s): N17.9 - Acute kidney failure, unspecified; N18.9 - Chronic kidney disease, unspecified Status: Acute (2) Acute UTI Code(s): N39.0 - Urinary tract infection, site not specified Status: Acute (3) Prostate cancer metastatic to bone Code(s): C61 - Malignant neoplasm of prostate; C79.51 - Secondary malignant neoplasm of bone Status: Acute - Attending Attestation patient was seen and examined. Acute on chronic kidney disease. Could be due to blockage of suprapubic catheter due to clotted blood/debris etc. Also will have to consider retroperitoneal lymphadenopathy causing ureteral compression. Suprapubic catheter has been changed. He is on antibiotics. Monitor urine output. Needs urology evaluation. Unclear if he is going to need percutaneous nephrostomy. If there is good urine output from suprapubic catheter and renal function improves, there will be no need.
[2018-09-20] MEDS ORDERED: DAPTOMYCIN IV.SIG SCH (23:00)
[2018-09-20] MEDS ORDERED: SODIUM CHLOR 0.9% IV.SIG SCH (23:00)
[2018-09-21] MEDS: Sod Chloride 0.9% Inj 1,000 ML IV.CONT SCH ×4 (04:24→16:49)
[2018-09-21] MEDS: SODIUM CHLOR 0.9% IV.SIG SCH ×2 (04:25→14:27)
[2018-09-21] MEDS: CEFTAZIDIME IV.SIG SCH (04:25)
[2018-09-21 08:16] LABS: Albumin 1.8 g/dL (3.4-5.0); Carbon Dioxide 17.6 meq/L (21.0-32.0); Phosphorus 4.4 mg/dL (2.5-4.9); Potassium 4.2 meq/L (3.5-5.1)
--- NOTE | 2018-09-21 08:20 | P.CON ---
History of Present Illness Service: Hematology/oncology. Consult date: 09/21/18 Requesting Physician: Laila Ambrose Reason for Consult: Metastatic prostate cancer. Primary Care Provider: Marcelo Cote MD Chief Complaint: Weakness hematuria. History of Present Illness: Mr. Queen is a 73-year-old man who is well-known to me, he has a diagnosis of metastatic prostate carcinoma, he had recently been on treatment with combination therapy consisting of leuprolide and Xtandi. Most recent restaging PET CT scan performed 2 weeks ago indicated interval disease progression with new metastatic disease involving the liver. The patient had spent 3 or 4 weeks at [facility] in the month of August for issues including hematuria, renal insufficiency, bladder outflow obstruction, recurrent fevers and uncontrolled pain. He had recently been discharged and had been making a reasonably good recovery, he was seen by me last week in my clinic and reported ongoing hematuria. He was advised flushing of the suprapubic catheter and increased hydration. Unfortunately, these interventions did not suffice and he presented to [facility] with progressive weakness and decreased drainage from the suprapubic catheter. He was noted on initial blood work to have renal insufficiency with bilateral hydroureter and hydronephrosis. He was also noted to be in acute on chronic renal failure. The suprapubic catheter was changed and the patient was hydrated. He is now draining clear urine. At last visit I had talked to the patient and his about obtaining a biopsy of 1 of the liver metastases to assess for microsatellite instability to determine if he may benefit from immunotherapy in the palliative setting. I explained to the patient and his that the patient in my view is a poor candidate for cytotoxic conventional systemic chemotherapy which would ordinarily be implemented in a situation as this if the patient was an appropriate candidate to tolerate such high intensity treatment. Because Mr. Queen has a poor performance status and would likely not tolerate conventional systemic chemotherapy with an agent such as docetaxel I would prefer avoiding this if at all possible. Review of Systems Constitutional: Reports anorexia, Reports weakness, Reports weight loss Eyes: Denies change in vision Ears, Nose, Mouth, and Throat: Reports headache(s), Reports poor balance, Denies sore throat Cardiovascular: Denies chest pain, Denies shortness of breath Respiratory: Reports cough Gastrointestinal: Reports abdominal pain Genitourinary: Reports blood in urine Musculoskeletal: Reports back pain, Reports body aches Skin/Breast: Denies hair loss Neurologic: Denies abnormal hearing Psychiatric: Reports abnormal sleep pattern, Reports anxiety Endocrine: Denies cold intolerance Hematologic/Lymphatic: Denies easy bleeding Allergic/Immunologic: Denies GI upset with certain foods PMFSH - History History Provided By: Patient - Medical History Medical History: Medical History (Last Reviewed 09/21/18 @ 08:14 by Junior Gant MD) Prostate cancer (Acute) Liver nodule Suprapubic catheter Chronic pain due to neoplasm Hematuria Hepatitis B Hypertension Kidney disease MDRO (multiple drug resistant organisms) resistance Onset Date: ~09/01/18 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 - Surgical History Surgical History: Surgical History (Last Reviewed 09/21/18 @ 08:14 by Junior Gant MD) S/P vasectomy (Acute) S/P cholecystectomy (Acute) S/P hip replacement - Family History Family History: Family History (Last Reviewed 09/21/18 @ 08:14 by Junior Gant MD) Father Lung cancer Mother Throat cancer - Social History I have reviewed the patient's Social History: Yes - Tobacco History Second Hand Smoke Exposure: No Tobacco Use In Past 30 Days: Yes Smoking Status: Former smoker Tobacco Type: Cigarettes Packs Per Day: 1 Years Smoked: 30 - Alcohol History How Often Do You Have a Drink Containing Alcohol: 4 or more times a week - Substance Use History Substance History: No History of Abuse - Substance Use Type Marijuana Status: Active Route Used: Inhalation Comment: Medically provided to patient for pain. - Travel History Recent Travel Out of the Country Within the Last 8 Weeks: No - Immunization History Tetanus Immunization: <5 Years Hx Influenza Vaccine This Season: Yes Medications and Allergies Active Medications: Active Medications Al Hydroxide/Mg Hydroxide (Milk Of Guero Liq) 30 ml PO Q12H PRN PRN Reason: Mild Constipation Bisacodyl (Dulcolax Supp) 10 mg RECTAL DAILY PRN PRN Reason: SEVERE CONSITIPATION Bupropion HCl (Wellbutrin Sr) 150 mg PO DAILY [facility] Last Admin: 09/20/18 09:28 Dose: 150 mg Calcium Carbonate (Oscal) 1,500 mg PO BID [facility] Last Admin: 09/20/18 20:35 Dose: 1,500 mg Fentanyl (Duragesic 25 Mcg Patch.72hr) 1 patch T-DERMAL Q3D [facility] Last Admin: 09/20/18 00:29 Dose: 1 patch Heparin Sodium (Porcine) (Heparin Inj) 5,000 units SQ Q12HR [facility] Hydrocortisone Acetate (Anusol-Hc) 1 applicatio RECTAL TID [facility] Last Admin: 09/20/18 18:22 Dose: Not Given Sodium Chloride (Ns Inj) 1,000 mls @ 125 mls/hr IV.CONT .Q8H [facility] Last Admin: 09/21/18 04:26 Dose: Not Given Ceftazidime 500 mg/ Sodium (Chloride) 100 mls @ 200 mls/hr IV.SIG Q12H [facility] Last Infusion: 09/21/18 04:55 Dose: Infused Lactulose (Lactulose Liq) 30 ml PO DAILY PRN PRN Reason: SEVERE CONSITIPATION Latanoprost (Xalatan 0.005% Opth Drops) 1 drop EACH EYE HS [facility] Last Admin: 09/20/18 20:35 Dose: 1 drop Lorazepam (Ativan) 0.5 mg PO Q8H PRN PRN Reason: ANXIETY Ondansetron HCl (Zofran Inj) 4 mg IV.PUSH Q8H PRN PRN Reason: NAUSEA OR VOMITING Oxycodone/Acetaminophen (Percocet 7.5/325 Mg) 1 tab PO Q6H [facility] Last Admin: 09/21/18 04:22 Dose: 1 tab Pharmacy Profile Note (Vancomycin Consult Pharmacy) 1 each OTHER UNSCH PRN PRN Reason: Pharmacy to dose Sennosides (Senokot) 17.2 mg PO Q12H PRN PRN Reason: Moderate Constipation Last Admin: 09/20/18 20:35 Dose: 17.2 mg Sodium Chloride (Ns Flush) 2 ml IV.FLUSH PRN PRN PRN Reason: FLUSH AFTER USING IV ACCESS Tolterodine Tartrate (Detrol La) 4 mg PO DAILY [facility] Last Admin: 09/20/18 09:28 Dose: 4 mg Vitamin D (Vitamin D3) 2,000 unit PO DAILY [facility] Last Admin: 09/20/18 09:28 Dose: 2,000 unit Allergies Allergy/AdvReac Type Severity Reaction Status Date / Time morphine Allergy Severe MORPHINE Verified 08/19/18 11:17 ALLERGY ADDED 12/19/07 @1500 - N/V Home Medications Medication Instructions Recorded Confirmed Type bimatoprost [Lumigan] 1 drp OPHTHALMIC (EYE) QPM 07/22/18 09/19/18 History bupropion HCl 150 mg PO QAM 07/22/18 09/19/18 History denosumab 120 mg SUB-Q Q4W 07/22/18 09/19/18 History diazepam [Valium] 5 mg PO DAILY PRN 07/22/18 09/19/18 History docusate sodium [Colace] 100 mg PO BID 07/22/18 09/19/18 History enzalutamide 160 mg PO DAILY 07/22/18 09/19/18 History folic acid 0.4 mg PO DAILY 07/22/18 09/19/18 History gabapentin 300 mg PO BID 07/22/18 09/19/18 History leuprolide (3 month) 0 mg IM [id number] 07/22/18 09/19/18 History lubiprostone [Amitiza] 24 mcg PO BID 07/22/18 09/19/18 History solifenacin [Vesicare] 10 mg PO DAILY 07/22/18 09/19/18 History tenofovir disoproxil fumarate 300 mg PO EVERY OTHER DAY 07/22/18 09/19/18 History [Viread] Physical Exam Vital signs: Vital Signs 09/20/18 08:45 09/20/18 09:00 09/20/18 12:38 Temperature 99.1 F 98.5 F Pulse Rate 83 81 79 Respiratory Rate 16 16 Blood Pressure 148/70 H 145/73 H Pulse Oximetry 94 L 96 09/20/18 16:27 09/20/18 18:16 09/20/18 19:39 Temperature 97.7 F 97.8 F Pulse Rate 72 66 82 Respiratory Rate 18 16 Blood Pressure 144/69 H 139/70 Pulse Oximetry 97 94 L 09/20/18 20:33 09/20/18 21:03 09/20/18 21:06 Temperature 97.9 F 98 F Pulse Rate 75 77 Respiratory Rate 20 18 18 Blood Pressure 147/78 H 144/75 H Pulse Oximetry 97 95 09/20/18 23:52 09/21/18 00:03 09/21/18 04:35 Temperature 98.2 F 97.7 F Pulse Rate 63 67 65 Respiratory Rate 14 16 Blood Pressure 124/66 148/79 H Pulse Oximetry 97 97 09/21/18 04:52 Temperature Pulse Rate Respiratory Rate 16 Blood Pressure Pulse Oximetry Intake & Output 09/20/18 09/21/18 09/21/18 18:59 06:59 18:59 Intake Total 2267.5 / 2267.5 2620 / 2620 Output Total 950 / 950 1000 / 1000 Balance 1317.5 / 1317.5 1620 / 1620 Weight 79.2 kg Intake: IV 1617.5 / 1617.5 1100 / 1100 NS Inj 1,000 ML @ 125 mls/hr IV 1000 / 1000 1000 / 1000 .CONT .Q8H [facility] Rx#:[id number] Vancomycin Inj 1,750 MG In NS 517.5 / 517.5 Inj 500 ML @ 250 mls/hr IV.SIG ONCE ONE Rx#:[id number] Tazicef Inj 500 MG In NS Inj 100 / 100 100 / 100 100 ML @ 200 mls/hr IV.SIG Q12H [facility] Rx#:[id number] Oral 650 / 650 720 / 720 Intake (Blood Product) Amt 0 / 0 800 / 800 Rbc As-3 Leukoreduced Unit 400 / 400 [id number] Rbc As-3 Leukoreduced Unit 0 / 0 400 / 400 [id number] Output: Urine Amount (Catheter) 950 / 950 1000 / 1000 Suprapubic 950 / 950 1000 / 1000 Other: Date of Last Bowel Movement 09/19/18 09/20/18 # Bowel Movements 1 Narrative: General: Elderly male, laying in bed, appears to be comfortable. He does not appear pale this morning. HEENT: Head atraumatic normocephalic, conjunctive a mildly pale, sclerae anicteric. Oral exam dry mucous membranes. Neck exam: No palpable cervical supraclavicular adenopathy. Cardiac examination: Regular rate rhythm, S1-S2 faint systolic murmur. Respiratory exam: Poor inspiratory effort, decreased bibasilar breath sounds, prolonged expiratory phase. Abdominal examination: Thin abdomen, soft, no obvious tenderness, suprapubic catheter is in place. No palpable hepatosplenomegaly. Lower extremities: Trace pretibial edema. 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 Musculoskeletal: Generally decreased muscle mass and tone. Skin examination: Nonfocal. - Urinary Catheter Management Suprapubic Cath placed during this visit: yes Reason for continuing: Chronic Urinary Retention Insertion date: 09/20/18 Insertion time: 03:20 Assessment and Plan - Plan Mr. Queen is a 73-year-old man with a diagnosis of metastatic prostate carcinoma , recently he was found to have progressive disease on PET/CT scan while on systemic therapy consisting of Xtandi and Lupron. He in particular presented with multiple new liver metastases which were identified as hypermetabolic lesions. I had advised an image guided biopsy of 1 of the liver lesions to serve the following purposes: #1 document presence of liver metastases and #2 to perform molecular testing on the tumor sample including microsatellite instability testing/mismatch repair gene testing. The utility of additional biopsy with molecular testing would be to help determine if this patient may benefit from palliative immunotherapy which is approved for metastatic malignancy positive for microsatellite instability/mismatch repair high genotype. Because the patient has progressed on various lines of systemic therapy he would be at this time a candidate for cytotoxic chemotherapy if we were to follow conventional protocols, cytotoxic chemotherapy would include docetaxel. This patient is not in good enough condition to tolerate cytotoxic aggressive systemic chemotherapy such as docetaxel. I would therefore like to avoid this. At last visit in my clinic I talked to the patient about pursuing hospice/ palliative care versus pursuing additional treatment options if possible. The patient and his confided that they are willing to accept hospice and palliation if the patient's disease will not benefit from immunotherapy. In essence, they would like one final try at therapeutic intervention with immunotherapy if that is possible. Recommendations: 1. Metastatic prostate carcinoma: With progressive disease based on radiographic findings on PET/CT scan performed within the last 2 weeks. The patient and his remain motivated to pursue image guided biopsy of the liver lesion to perform MSI/MMR testing. 2. Renal failure: Likely related to bladder outflow obstruction secondary to a clotted suprapubic catheter. The urine is now draining, it appears to be clear and I am awaiting repeat chemistries from this morning. Appreciate nephrology input. 3. Anemia: Related to ongoing hematuria, status post 2 unit packed red blood cell transfusion yesterday. I will discuss obtaining CT-guided biopsy while the patient is in the hospital during this hospitalization.
[2018-09-21] MEDS: buPROPion 150 MG 12 HR Tablet PO SCH (08:48)
[2018-09-21] MEDS: Tolterodine Tartrate LA 4 MG Capsule PO SCH (08:49)
[2018-09-21] MEDS: Calcium Carbonate 500 MG Tablet PO SCH ×2 (08:49→21:16)
[2018-09-21] MEDS: Heparin - SQ 10,000 UNITS/ML Vial SQ SCH (08:49)
--- NOTE | 2018-09-21 12:00 | P.PNNP ---
Subjective Interval history: Patient was resting in bed, no distress, at bedside. Patient continues to make urine via suprapubic catheter. Renal function has declined since admission. Vancomycin and Ceftazidime discontinued 09/21/18. Daptomycin ordered. <Cydney Adamson - Last Filed: 09/21/18 12:14> Physical Exam Vital signs: Vital Signs 09/20/18 12:38 09/20/18 16:27 09/20/18 18:16 Temperature 98.5 F 97.7 F 97.8 F Pulse Rate 79 72 66 Respiratory Rate 16 18 16 Blood Pressure 145/73 H 144/69 H 139/70 Pulse Oximetry 96 97 94 L 09/20/18 19:39 09/20/18 20:33 09/20/18 21:03 Temperature 97.9 F 98 F Pulse Rate 82 75 77 Respiratory Rate 20 18 Blood Pressure 147/78 H 144/75 H Pulse Oximetry 97 95 09/20/18 21:06 09/20/18 23:52 09/21/18 00:03 Temperature 98.2 F Pulse Rate 63 67 Respiratory Rate 18 14 Blood Pressure 124/66 Pulse Oximetry 97 09/21/18 04:35 09/21/18 04:52 09/21/18 08:47 Temperature 97.7 F 97.4 F L Pulse Rate 65 74 Respiratory Rate 16 16 20 Blood Pressure 148/79 H 157/88 H Pulse Oximetry 97 97 09/21/18 09:00 Temperature Pulse Rate 66 Respiratory Rate Blood Pressure Pulse Oximetry Intake & Output 09/20/18 09/21/18 09/21/18 18:59 06:59 18:59 Intake Total 2267.5 / 2267.5 2620 / 2620 Output Total 950 / 950 1000 / 1000 Balance 1317.5 / 1317.5 1620 / 1620 Weight 79.2 kg Intake: IV 1617.5 / 1617.5 1100 / 1100 NS Inj 1,000 ML @ 125 mls/hr IV 1000 / 1000 1000 / 1000 .CONT .Q8H [facility] Rx#:[id number] Vancomycin Inj 1,750 MG In NS 517.5 / 517.5 Inj 500 ML @ 250 mls/hr IV.SIG ONCE ONE Rx#:[id number] Tazicef Inj 500 MG In NS Inj 100 / 100 100 / 100 100 ML @ 200 mls/hr IV.SIG Q12H [facility] Rx#:[id number] Oral 650 / 650 720 / 720 Intake (Blood Product) Amt 0 / 0 800 / 800 Rbc As-3 Leukoreduced Unit 400 / 400 [id number] Rbc As-3 Leukoreduced Unit 0 / 0 400 / 400 [id number] Output: Urine Amount (Catheter) 950 / 950 1000 / 1000 Suprapubic 950 / 950 1000 / 1000 Other: Date of Last Bowel Movement 09/19/18 09/20/18 09/21/18 # Bowel Movements 1 - Constitutional no acute distress - Routine HEENT Exam Head: Present: normocephalic Eye: Present: EOMI, PERRL ENT: Present: mucous membranes moist - Routine Neck Exam Present: trachea midline. Absent: tracheal deviation - Routine Respiratory Exam Present: CTA bilaterally. Absent: accessory muscle use, respiratory distress - Routine Cardiovascular Exam Present: RRR. Absent: gallop, rubs - Routine Abdominal Exam Present: soft. Absent: tenderness - Routine Extremities Exam Absent: clubbing, edema, calf tenderness - Routine Neurological Exam Present: alert, oriented X3 - Detailed Neurological Exam: Coma Scale Eye Opening: Spontaneous Verbal Response: Oriented - Routine Psychiatric Exam Present: normal affect - Urinary Catheter Management Suprapubic Cath placed during this visit: yes Reason for continuing: Chronic Urinary Retention Insertion date: 09/20/18 Insertion time: 03:20 <Cydney Adamson - Last Filed: 09/21/18 12:14> Vital signs: Vital Signs 09/21/18 16:57 09/21/18 18:00 09/21/18 20:00 Temperature 98.4 F 98.0 F Pulse Rate 67 66 73 Respiratory Rate 16 16 Blood Pressure 152/76 H 157/83 H Pulse Oximetry 95 97 09/22/18 00:00 09/22/18 04:00 09/22/18 08:00 Temperature 97.9 F 97.7 F Pulse Rate 78 79 67 Respiratory Rate 18 18 Blood Pressure 158/80 H 156/78 H Pulse Oximetry 94 L 95 09/22/18 08:25 09/22/18 11:55 Temperature 98.2 F 97.6 F Pulse Rate 67 71 Respiratory Rate 16 18 Blood Pressure 150/75 H 137/87 Pulse Oximetry 98 93 L Intake & Output 09/21/18 09/22/18 09/22/18 18:59 06:59 18:59 Intake Total 1000 / 1000 1761 / 1761 1240 / 1240 Output Total 2800 / 2800 500 / 500 Balance 1000 / 1000 -1039 / -1039 740 / 740 Weight 79 kg Intake: IV 1000 / 1000 1521 / 1521 1000 / 1000 NS Inj 1,000 ML @ 125 mls/hr IV 1000 / 1000 1421 / 1421 1000 / 1000 .CONT .Q8H [facility] Rx#:[id number] Cubicin Inj 480 MG In NS Inj 100 / 100 100 ML @ 200 mls/hr IV.SIG Q48H [facility] Rx#:[id number] Oral 240 / 240 240 / 240 Output: Urine 2800 / 2800 Urine Amount (Catheter) 500 / 500 Suprapubic 500 / 500 Other: Date of Last Bowel Movement 09/21/18 09/21/18 # Bowel Movements 0 - Urinary Catheter Management Suprapubic Cath placed during this visit: no <Juan Ortega - Last Filed: 09/22/18 14:53> Assessment and Plan - Assessment (1) Acute on chronic kidney failure Code(s): N17.9 - Acute kidney failure, unspecified; N18.9 - Chronic kidney disease, unspecified Status: Acute Plan: Patient had renal ultrasound done on 09/19/18 which showed bilateral hydronephrosis. Patient has a suprapubic catheter in place and has been making urine. Acute on chronic kidney disease could be due to blockage of suprapubic catheter due to clotted blood/debris etc. Also will have to consider retroperitoneal lymphadenopathy causing ureteral compression. Suprapubic catheter has been changed. Monitor urine output. Consult to urology was placed. Unclear if he is going to need percutaneous nephrostomy. If there is good urine output from suprapubic catheter and renal function improves, there will be no need. Renal function has declined since admission. Will continue to monitor renal function. . (2) Acute UTI Code(s): N39.0 - Urinary tract infection, site not specified Status: Acute Plan: Vancomycin and Ceftazidime discontinued 09/21/18. Daptomycin ordered. (3) Prostate cancer metastatic to bone Code(s): C61 - Malignant neoplasm of prostate; C79.51 - Secondary malignant neoplasm of bone Status: Acute Plan: As per reviewing previous documentation, the patient's and patient were concerned about getting a liver biopsy to see if the patient was a candidate for immunotherapy. Oncology consulted. Will follow up with the recommendations. - Plan Hypocalcemia Patient was given IV calcium 09/19/18 and is currently on calcium carbonate. Ordered labs: Vit D, Phosphorus, ionized calcium. Vit D and ionized calcium labs pending. Anemia Patient's Hemoglobin yesterday was 7.3, 2 units of PRBCs were transfused yesterday. Poor prognosis <Cydney Adamson - Last Filed: 09/21/18 12:14> - Assessment (1) Acute on chronic kidney failure Code(s): N17.9 - Acute kidney failure, unspecified; N18.9 - Chronic kidney disease, unspecified Status: Acute (2) Acute UTI Code(s): N39.0 - Urinary tract infection, site not specified Status: Acute Plan: patient was seen and examined. Renal function has not improved although he has very good urine output. Scheduled for percutaneous nephrostomy placement. (3) Prostate cancer metastatic to bone Code(s): C61 - Malignant neoplasm of prostate; C79.51 - Secondary malignant neoplasm of bone Status: Acute <Juan Ortega - Last Filed: 09/22/18 14:53>
[2018-09-21] MEDS: Collagenase Oint 30 GM Tube TOPICAL SCH (12:10)
[2018-09-21] MEDS: Gentamicin 0.1% Cream 15 GM Cream TOPICAL SCH (12:10)
--- NOTE | 2018-09-21 12:22 | P.PNWCN ---
Wound Care Nurse Consult Description: Consult for Pressure Ulcer of sacral per Dr Ambrose Communicated with: Dr Kathleen Dawn, RN Recommendation: Cleanse wound on sacrum daily with Normal Saline only. Santyl and Gentamycin (mixed together and placed on NS moistened 2x2 gauze). Skin prep periwound with Cavilon skin barrier film. Place medicated 2x2 in wound bed and secure with dry cover. Additional information: Patient seen on for wound to sacrum. Patient turned to his left side for assessment with Dr Vera Yang. Wound was covered in a transparent film that was removed to reveal an unstageable wound on the sacrum. Wound measured 1.3cm x 1.3cm x 0.3cm of 100% yellow moist necrotic tissue. There is no odor and no active drainage noted. Wound margins are open. Periwound is blanching erythema. Wound/Pressure Injury - Patient Status Premedicated for Pain Prior to Dressing Change: No - Wound Sacrum Wound Staging: Unstageable Wound Assessment: Admission Wound Type: Pressure Injury Length (cm): 1.3 (cm) Width (cm): 1.3 (cm) Depth (cm): 0.3 (cm) Wound Bed Appearance: Yellow Surrounding Tissue Appearance: Erythema (blanching) Drainage Amount: None Drainage Odor: No Odor Dressing Status: Changed Cleansing Solution: Saline Topical: Enzymatic Debridement Ointment (mixed with gentamycin) Primary Dressing: Gauze Pad Cover Dressing: Adhesive Dressing Wound Dressing Change Date: 09/21/18
--- NOTE | 2018-09-21 12:43 | P.DIET ---
Nutritional Evaluation Type of nutrition evaluation: initial Nutrition consult regarding: Diet Evaluation Nutrition screening: Weight Loss > 10 lbs Objective - Diagnosis generalized weakness, hypocalcemia, UTI - Objective Body Mass Index: 26.5 % IBW: 113 (IBW = 154lb) Body Weight Used for Calculations: Actual Energy Needs - Lower Range (kCal/kg): 22 Energy Needs - Upper Range (kCal/kg): 28 Lower Limit kCal/kg (kCals): 1,742 Upper Limit kCal/kg (kCals): 2,218 Lower Limit Protein Factor (Grams per Kg): 1.1 Upper Limit Protein Factor (Grams per Kg): 1.3 Lower Protein Needs (Protein): 87 Upper Protein Needs (Protein): 103 Fluid Factor (ml/kg): 25 Estimated Fluid Needs (ml): 1,980 Dietitian Reviewed in Medical Record: Current diet, Curent medications, Intake & Output, Labs, Medical history Diet Order: regular Oral Diet Intake Amount: Good 75-90% Speech Therapy Recommendations: No Wound Care Note: Sacrum: unstageable pressure injury Objective Comments: PMH: hematuria, hep B, HTN, kidney disease, liver nodule, prostate cancer mets to bone Labs: BUN 68, Cr 5.09, GFR 11, Ca+ 6.0 Assessment Assessment: Pt currently at nutritional risk r/t reported unplanned wt loss prior to admission. Pt consumed 75% of most meals yesterday (09/20) and tolerating well. RD to recommend Nepro BID as a PO supplement. Continue to monitor PO intake, renal labs. Wound care note reviewed. Labs reviewed, wt noted, dietitian following. Recommendations: 1. RD to recommend Nepro BID as a PO supplement 2. Continue to monitor PO intake, renal labs 3. Dietitian following Dietitian to Monitor: Lab values, Renal labs, Glucose level, Intake & Output, Diet tolerance, Weight change, PO Intake, Medical course
[2018-09-21 12:50] LABS: Baso % (Auto) 0.2 % (0.0-2.0); Eos # (Auto) 0.4 th/mm3 (0.0-0.4); Eos % (Auto) 3.8 % (0.0-4.0); Hemoglobin 8.6 gm/dL (13.0-17.0); Lymph # (Auto) 0.8 th/mm3 (1.0-4.8); Lymph % (Auto) 8.1 % (9.0-44.0); Mean Corpuscular HGB Conc 34.4 % (32.0-36.0); Mean Corpuscular Hemoglobin 32.2 pg (27.0-34.0); Mean Corpuscular Volume 93.6 fL (80.0-100.0); Mean Platelet Volume 6.8 fL (7.0-11.0); Mono # (Auto) 0.9 th/mm3 (0.0-0.9); Mono % (Auto) 8.9 % (0.0-8.0); Neut # (Auto) 7.7 th/mm3 (1.8-7.7); Platelet Count 265 th/mm3 (150-450); Red Blood Count 2.67 mil/mm3 (4.50-5.90); Red Cell Distribution Width 18.6 % (11.6-17.2); White Blood Count 9.7 th/mm3 (4.0-11.0)
--- NOTE | 2018-09-21 13:02 | P.CONURO ---
History of Present Illness Service: Consult date: 09/21/18 Requesting Physician: Cydney Adamson Reason for Consult: Bilateral hydronephrosis with declining renal function Primary Care Provider: Marcelo Cote MD Chief Complaint: Weakness hematuria. History of Present Illness: 73-year-old gentleman with multiple medical problems including metastatic prostate cancer with progression who presents now with generalized weakness. Patient has been managed with suprapubic catheter which was recently replaced due to hematuria. The urine is now clear yellow and has been draining well. Despite this the patient has had progressive deterioration in his renal function. A renal ultrasound study was performed during present hospital station that demonstrated moderate bilateral hydronephrosis likely related to bilateral ureteral obstruction from the metastatic prostate cancer. A liver biopsy is presently being contemplated for metastatic changes noted. Patient has been seen by palliative care service and at this point time wants everything performed that is reasonably possible. I discussed potential benefit of having bilateral nephrostomy tubes placed to facilitate drainage of both kidneys and hopefully improve his overall renal function. 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 - Surgical History Surgical History: Surgical History (Last Reviewed 09/21/18 @ 08:14 by Junior Gant MD) S/P vasectomy (Acute) S/P cholecystectomy (Acute) S/P hip replacement - Family History Family History: Family History (Last Reviewed 09/21/18 @ 08:14 by Junior Gant MD) Father Lung cancer Mother Throat cancer - Tobacco History Second Hand Smoke Exposure: No Tobacco Use In Past 30 Days: Yes Smoking Status: Former smoker Tobacco Type: Cigarettes Packs Per Day: 1 Years Smoked: 30 - Alcohol History How Often Do You Have a Drink Containing Alcohol: 4 or more times a week - Substance Use History Substance History: No History of Abuse - Substance Use Type Marijuana Status: Active Route Used: Inhalation Comment: Medically provided to patient for pain. - Travel History Recent Travel Out of the Country Within the Last 8 Weeks: No - Immunization History Tetanus Immunization: <5 Years Hx Influenza Vaccine This Season: Yes Medications and Allergies Active Medications: Active Medications Al Hydroxide/Mg Hydroxide (Milk Of Magnesia Liq) 30 ml PO Q12H PRN PRN Reason: Mild Constipation Bisacodyl (Dulcolax Supp) 10 mg RECTAL DAILY PRN PRN Reason: SEVERE CONSITIPATION Bupropion HCl (Wellbutrin Sr) 150 mg PO DAILY [facility] Last Admin: 09/21/18 08:48 Dose: 150 mg Calcium Carbonate (Oscal) 1,500 mg PO BID [facility] Last Admin: 09/21/18 08:49 Dose: 1,500 mg Collagenase (Santyl Oint) 1 applicatio TOPICAL DAILY [facility] Last Admin: 09/21/18 12:10 Dose: Not Given Fentanyl (Duragesic 25 Mcg Patch.72hr) 1 patch T-DERMAL Q3D [facility] Last Admin: 09/20/18 00:29 Dose: 1 patch Gentamicin Sulfate (Gentamicin 0.1% Cream) 1 applicatio TOPICAL DAILY [facility] Last Admin: 09/21/18 12:10 Dose: Not Given Heparin Sodium (Porcine) (Heparin Inj) 5,000 units SQ Q12HR [facility] Last Admin: 09/21/18 08:49 Dose: 5,000 units Hydrocortisone Acetate (Anusol-Hc) 1 applicatio RECTAL TID [facility] Last Admin: 09/21/18 08:50 Dose: Not Given Sodium Chloride (Ns Inj) 1,000 mls @ 125 mls/hr IV.CONT .Q8H [facility] Last Admin: 09/21/18 04:26 Dose: Not Given Daptomycin 480 mg/ Sodium (Chloride) 100 mls @ 200 mls/hr IV.SIG Q48H [facility] Lactulose (Lactulose Liq) 30 ml PO DAILY PRN PRN Reason: SEVERE CONSITIPATION Latanoprost (Xalatan 0.005% Opth Drops) 1 drop EACH EYE HS [facility] Last Admin: 09/20/18 20:35 Dose: 1 drop Lorazepam (Ativan) 0.5 mg PO Q8H PRN PRN Reason: ANXIETY Ondansetron HCl (Zofran Inj) 4 mg IV.PUSH Q8H PRN PRN Reason: NAUSEA OR VOMITING Oxycodone/Acetaminophen (Percocet 7.5/325 Mg) 1 tab PO Q6H [facility] Last Admin: 09/21/18 08:48 Dose: 1 tab Sennosides (Senokot) 17.2 mg PO Q12H PRN PRN Reason: Moderate Constipation Last Admin: 09/21/18 08:49 Dose: 17.2 mg Sodium Chloride (Ns Flush) 2 ml IV.FLUSH PRN PRN PRN Reason: FLUSH AFTER USING IV ACCESS Tolterodine Tartrate (Detrol La) 4 mg PO DAILY [facility] Last Admin: 09/21/18 08:49 Dose: 4 mg Vitamin D (Vitamin D3) 2,000 unit PO DAILY [facility] Last Admin: 09/21/18 08:48 Dose: 2,000 unit Allergies Allergy/AdvReac Type Severity Reaction Status Date / Time morphine Allergy Severe MORPHINE Verified 08/19/18 11:17 ALLERGY ADDED 12/19/07 @1500 - N/V Home Medications Medication Instructions Recorded Confirmed Type bimatoprost [Lumigan] 1 drp OPHTHALMIC (EYE) QPM 07/22/18 09/19/18 History bupropion HCl 150 mg PO QAM 07/22/18 09/19/18 History denosumab 120 mg SUB-Q Q4W 07/22/18 09/19/18 History diazepam [Valium] 5 mg PO DAILY PRN 07/22/18 09/19/18 History docusate sodium [Colace] 100 mg PO BID 07/22/18 09/19/18 History enzalutamide 160 mg PO DAILY 07/22/18 09/19/18 History folic acid 0.4 mg PO DAILY 07/22/18 09/19/18 History gabapentin 300 mg PO BID 07/22/18 09/19/18 History leuprolide (3 month) 0 mg IM [id number] 07/22/18 09/19/18 History lubiprostone [Amitiza] 24 mcg PO BID 07/22/18 09/19/18 History solifenacin [Vesicare] 10 mg PO DAILY 07/22/18 09/19/18 History tenofovir disoproxil fumarate 300 mg PO EVERY OTHER DAY 07/22/18 09/19/18 History [Viread] Physical Exam Vital Signs - 24 hr 09/20/18 16:27 09/20/18 18:16 09/20/18 19:39 Temperature 97.7 F 97.8 F Pulse Rate 72 66 82 Respiratory Rate 18 16 Blood Pressure 144/69 H 139/70 Pulse Oximetry 97 94 L 09/20/18 20:33 09/20/18 21:03 09/20/18 21:06 Temperature 97.9 F 98 F Pulse Rate 75 77 Respiratory Rate 20 18 18 Blood Pressure 147/78 H 144/75 H Pulse Oximetry 97 95 09/20/18 23:52 09/21/18 00:03 09/21/18 04:35 Temperature 98.2 F 97.7 F Pulse Rate 63 67 65 Respiratory Rate 14 16 Blood Pressure 124/66 148/79 H Pulse Oximetry 97 97 09/21/18 04:52 09/21/18 08:47 09/21/18 09:00 Temperature 97.4 F L Pulse Rate 74 66 Respiratory Rate 16 20 Blood Pressure 157/88 H Pulse Oximetry 97 09/21/18 12:12 09/21/18 12:34 Temperature 98.9 F Pulse Rate 69 68 Respiratory Rate 16 Blood Pressure 147/78 H Pulse Oximetry 97 Physical Exam: GENERAL: This is a well-nourished, well-developed patient, in no apparent distress. SKIN: No rashes, ecchymoses or lesions. Cool and dry. HEAD: Atraumatic. Normocephalic. No temporal or scalp tenderness. EYES: Pupils equal round and reactive. Extraocular motions intact. No scleral icterus. No injection or drainage. ENT: Nose without bleeding, purulent drainage or septal hematoma. Throat without erythema, tonsillar hypertrophy or exudate. Uvula midline. Airway patent. NECK: Trachea midline. No JVD or lymphadenopathy. Supple, nontender, no meningeal signs. GASTROINTESTINAL: Abdomen soft, non-tender, nondistended. No hepato-splenomegaly , or palpable masses. No guarding. GENITOURINARY: Pubic catheter in place draining clear yellow urine, bladder not distended. No CVA tenderness. MUSCULOSKELETAL: Extremities without clubbing, cyanosis, or edema. No joint tenderness, effusion, or edema noted. No calf tenderness. Negative Homans sign bilaterally. NEUROLOGICAL: Awake and alert. Cranial nerves II through XII intact. Motor and sensory grossly within normal limits. Five out of 5 muscle strength in all muscle groups. Normal speech. Laboratory Results - last 24 hr 09/20/18 09/20/18 09/21/18 08:17 19:27 06:40 WBC RBC Hgb Hct MCV MCH MCHC RDW Plt Count MPV Prelim Diff (Auto) Neut % (Auto) Lymph % (Auto) Garvin % (Auto) Eos % (Auto) Baso % (Auto) Neut # (Auto) Lymph # (Auto) Garvin # (Auto) Eos # (Auto) Baso # (Auto) Differential Comment Sodium 135 L Potassium 4.2 Chloride 104 Carbon Dioxide 17.6 L Anion Gap 13 BUN 68 H Creatinine 5.09 H Estimated GFR 11 L Random Glucose 89 Calcium 6.0 L* Phosphorus 4.3 4.4 Albumin 1.8 L MTS Gel Crossmatch See Detail 09/21/18 12:20 WBC 9.7 RBC 2.67 L Hgb 8.6 L Hct 25.0 L MCV 93.6 MCH 32.2 MCHC 34.4 RDW 18.6 H Plt Count 265 MPV 6.8 L Prelim Diff (Auto) Slide review pending Neut % (Auto) 79.0 H Lymph % (Auto) 8.1 L Garvin % (Auto) 8.9 H Eos % (Auto) 3.8 Baso % (Auto) 0.2 Neut # (Auto) 7.7 Lymph # (Auto) 0.8 L Garvin # (Auto) 0.9 Eos # (Auto) 0.4 Baso # (Auto) 0.0 Differential Comment . Sodium Potassium Chloride Carbon Dioxide Anion Gap BUN Creatinine Estimated GFR Random Glucose Calcium Phosphorus Albumin MTS Gel Crossmatch Microbiology 09/19/18 18:09 Aerobic Blood Culture - Preliminary Blood - Peripheral No growth in 2 days Anaerobic Blood Culture - Preliminary No growth in 2 days 09/19/18 18:15 Aerobic Blood Culture - Preliminary Blood - Peripheral No growth in 2 days Anaerobic Blood Culture - Preliminary S. aureus MRSA 09/19/18 18:13 Urine Culture - Final Suprapubic Urine S. aureus MRSA Result Diagrams: 09/21/18 12:20 09/21/18 06:40 Imaging: ITS Impressions Abdomen/Bladder Ultrasound 09/19/18 00:00 CONCLUSION: Moderate bilateral hydronephrosis. Assessment and Plan - Assessment (1) Prostate cancer metastatic to bone Code(s): C61 - Malignant neoplasm of prostate; C79.51 - Secondary malignant neoplasm of bone Status: Acute (2) Hydronephrosis, bilateral Code(s): N13.30 - Unspecified hydronephrosis Status: Acute - Plan Urologic impression: 1. Prostate cancer would likely metastases to bone and liver 2. Bilateral hydronephrosis related to ureteral obstruction from the advancing prostate cancer 3. Status post placement of suprapubic catheter Recommendations: 1. Continue with suprapubic catheter to gravity drainage 2. We will place a consult for interventional radiology to place bilateral nephrostomy tubes tomorrow 3. PT, PTT labs ordered and patient to be n.p.o. after midnight
--- NOTE | 2018-09-21 13:07 | MB ---
cc: Derek Gamez MD DATE: 09/21/2018 REQUESTING PHYSICIAN: WENDY Snyder ATTENDING PHYSICIAN: Yoandy Abel MD REASON FOR CONSULTATION: MRSA in blood, wound, and urine, Escherichia coli in urine. HISTORY OF PRESENT ILLNESS: This is a 73-year-old white male who has known history of metastatic prostate cancer. The patient presented to the emergency department on 09/19/2018 with weakness. The patient's noted that he became very weak on the day prior to presenting to the emergency department. It is also reported that he had cloudiness of the urine from the suprapubic catheter. The patient has a suprapubic catheter in place. His temperature was 100.6 degrees in the emergency department and white count was mildly elevated at 11.8. He also has acute kidney disease. Urinalysis was performed and it showed many white blood cell clumps and a urine culture was taken and it has MRSA. Blood culture also has MRSA in 1 of 4 bottles. The patient received a dose of vancomycin. He is currently afebrile. He is awake, but feels tired. He has no other symptom complaints. The patient has been treated for a sacral dec[facility]. he is reported to have Escherichia coli and MRSA cultured from that wound. Review of the prior cultures from the wound of the back shows E. coli, MRSA, and Shaniqua tropicalis on 09/01/2018. The patient's creatinine is 5.0 and estimated GFR is 11. The patient has been followed by oncology and has received combination therapy with leuprolide and Xtandi was noted to have progression of the metastatic disease with new metastases involving the liver. PAST MEDICAL HISTORY: Hepatitis B, hypertension, kidney disease, metastatic prostate cancer with metastasis to bone and now suspected liver, chronic suprapubic catheter, history of cholecystectomy, history of hip replacement, history of vasectomy. ALLERGIES: MORPHINE. MEDICATIONS: 1. Ceftazidime. 2. Duragesic patch. 3. Latanoprost eyedrops. 4. Percocet 7.5. 5. Senokot. 6. Detrol-LA. 7. Vitamin D. 8. The patient received vancomycin dose on 09/20/2018. SOCIAL HISTORY: The patient is . He is a former smoker. Positive alcohol use. No illicit drugs. FAMILY HISTORY: The patient's father had lung cancer. Mother had throat cancer. REVIEW OF SYSTEMS: All systems have been reviewed and are negative, except for which is mentioned in history of present illness. PHYSICAL EXAMINATION: GENERAL: Slender, well-developed male. He appears pale PE VITAL SIGNS: Temperature 97.4, BP 157/88, respirations 20, heart rate 66. HEENT: Head is atraumatic. Extraocular movements are grossly intact. Pupils reactive to light. No icterus. Oropharynx moist mucosa without lesions. NECK: Supple without adenopathy. LUNGS: Clear. HEART: Regular S1 and S2. No murmurs. ABDOMEN: Bowel sounds present, soft, no tenderness appreciated. Suprapubic catheter area appears intact. The suprapubic catheter has light yellow urine with a white sediment. SKIN: No rash. NEUROLOGIC: The patient is alert and oriented. No gross focal finding. PSYCHIATRIC: Calm and cooperative. LABORATORY DATA: WBC 12.6, platelets 328, hemoglobin 7.3, 80% neutrophils. Creatinine 5.09. Estimated GFR 11. Sodium 135. AST 12, ALT 7. Abdominal ultrasound shows moderate hydronephrosis of the right kidney and also moderate hydronephrosis of the left kidney and multiple masses in the liver. IMPRESSION: 1. Bacteremia due to methicillin-resistant Staphylococcus aureus originated from the urine. 2. Urinary tract infection due to MRSA. 3. Metastatic prostate cancer. 4. Acute kidney disease. The patient also has chronic kidney disease as well. RECOMMENDATIONS: 1. Continue treatment for the MRSA with daptomycin. The patient has severe kidney dysfunction and would like to avoid vancomycin. 2. Follow repeat urine culture in 24-48 hours and follow the blood culture also in 24-48 hours to check for clearance of the bacteremia. I anticipate the patient will need 10 days of antibiotic treatment because of the bacteremia. However, duration will depend on followup blood cultures and clinical progress and plan has been explained to the patient and his . Thank you for this consultation. I will monitor his progress with you. MD MARIEL Ward/ , 11:43 AM , 11:59 AM KIMBERLY
--- NOTE | 2018-09-21 13:24 | P.PN ---
Subjective Interval history: Follow-up for sepsis secondary to UTI. Nursing reports the catheter is successfully draining urine which overall appears clear. Reports that the patient's bowel movements are consistent but quite hard. Physical Exam Vital signs: Vital Signs 09/20/18 16:27 09/20/18 18:16 09/20/18 19:39 Temperature 97.7 F 97.8 F Pulse Rate 72 66 82 Respiratory Rate 18 16 Blood Pressure 144/69 H 139/70 Pulse Oximetry 97 94 L 09/20/18 20:33 09/20/18 21:03 09/20/18 21:06 Temperature 97.9 F 98 F Pulse Rate 75 77 Respiratory Rate 20 18 18 Blood Pressure 147/78 H 144/75 H Pulse Oximetry 97 95 09/20/18 23:52 09/21/18 00:03 09/21/18 04:35 Temperature 98.2 F 97.7 F Pulse Rate 63 67 65 Respiratory Rate 14 16 Blood Pressure 124/66 148/79 H Pulse Oximetry 97 97 09/21/18 04:52 09/21/18 08:47 09/21/18 09:00 Temperature 97.4 F L Pulse Rate 74 66 Respiratory Rate 16 20 Blood Pressure 157/88 H Pulse Oximetry 97 09/21/18 12:12 09/21/18 12:34 Temperature 98.9 F Pulse Rate 69 68 Respiratory Rate 16 Blood Pressure 147/78 H Pulse Oximetry 97 Intake & Output 09/20/18 09/21/18 09/21/18 18:59 06:59 18:59 Intake Total 2267.5 / 2267.5 2620 / 2620 Output Total 950 / 950 1000 / 1000 Balance 1317.5 / 1317.5 1620 / 1620 Weight 79.2 kg Intake: IV 1617.5 / 1617.5 1100 / 1100 NS Inj 1,000 ML @ 125 mls/hr IV 1000 / 1000 1000 / 1000 .CONT .Q8H [facility] Rx#:[id number] Vancomycin Inj 1,750 MG In NS 517.5 / 517.5 Inj 500 ML @ 250 mls/hr IV.SIG ONCE ONE Rx#:[id number] Tazicef Inj 500 MG In NS Inj 100 / 100 100 / 100 100 ML @ 200 mls/hr IV.SIG Q12H [facility] Rx#:[id number] Oral 650 / 650 720 / 720 Intake (Blood Product) Amt 0 / 0 800 / 800 Rbc As-3 Leukoreduced Unit 400 / 400 [id number] Rbc As-3 Leukoreduced Unit 0 / 0 400 / 400 [id number] Output: Urine Amount (Catheter) 950 / 950 1000 / 1000 Suprapubic 950 / 950 1000 / 1000 Other: Date of Last Bowel Movement 09/19/18 09/20/18 09/21/18 # Bowel Movements 1 Narrative: Patient lying in bed with eye covers on, seems comfortable, no acute pain Lung sounds are clear bilaterally, unlabored breathing Heart sounds regular rate rhythm, no murmurs No lower extremity edema Suprapubic catheter in place, clear urine - Urinary Catheter Management Suprapubic Cath placed during this visit: yes Reason for continuing: Chronic Urinary Retention Insertion date: 09/20/18 Insertion time: 03:20 Results - Labs CBC & Chem 7: 09/21/18 12:20 09/21/18 06:40 Laboratory Results - last 24 hr 09/20/18 09/20/18 09/21/18 08:17 19:27 06:40 WBC RBC Hgb Hct MCV MCH MCHC RDW Plt Count MPV Prelim Diff (Auto) Neut % (Auto) Lymph % (Auto) Ramsey % (Auto) Eos % (Auto) Baso % (Auto) Neut # (Auto) Lymph # (Auto) Ramsey # (Auto) Eos # (Auto) Baso # (Auto) Differential Comment Sodium 135 L Potassium 4.2 Chloride 104 Carbon Dioxide 17.6 L Anion Gap 13 BUN 68 H Creatinine 5.09 H Estimated GFR 11 L Random Glucose 89 Calcium 6.0 L* Phosphorus 4.3 4.4 Albumin 1.8 L MTS Gel Crossmatch See Detail 09/21/18 12:20 WBC 9.7 RBC 2.67 L Hgb 8.6 L Hct 25.0 L MCV 93.6 MCH 32.2 MCHC 34.4 RDW 18.6 H Plt Count 265 MPV 6.8 L Prelim Diff (Auto) Slide review pending Neut % (Auto) 79.0 H Lymph % (Auto) 8.1 L Ramsey % (Auto) 8.9 H Eos % (Auto) 3.8 Baso % (Auto) 0.2 Neut # (Auto) 7.7 Lymph # (Auto) 0.8 L Ramsey # (Auto) 0.9 Eos # (Auto) 0.4 Baso # (Auto) 0.0 Differential Comment . Sodium Potassium Chloride Carbon Dioxide Anion Gap BUN Creatinine Estimated GFR Random Glucose Calcium Phosphorus Albumin MTS Gel Crossmatch Microbiology 09/19/18 18:09 Blood - Peripheral Aerobic Blood Culture - Preliminary No growth in 2 days 09/19/18 18:09 Blood - Peripheral Anaerobic Blood Culture - Preliminary No growth in 2 days 09/19/18 18:15 Blood - Peripheral Aerobic Blood Culture - Preliminary No growth in 2 days 09/19/18 18:15 Blood - Peripheral Anaerobic Blood Culture - Preliminary S. aureus MRSA 09/19/18 18:13 Suprapubic Urine Urine Culture - Final S. aureus MRSA Assessment and Plan - Plan This patient is a 73-year-old male with a diagnosis of metastatic prostate cancer, urinary obstruction with a suprapubic catheter. The patient presents the emergency department with a 1 day history of weakness, chills, fever. In the emergency department the patient was found to have a urinary tract. Severe sepsis secondary to catheter associated urinary tract infection present on admission -Much improved since admission MRSA bacteremia likely secondary to UTI cystitis ID following, daptomycin for now Secondary hyperparathyroidism Hypocalcemia Worsening renal function -IV fluids Nephrology following -Continue p.o. Os-Karl Possible bladder obstruction Worsening renal function Per nephrology, urology has been consulted and plans for nephrostomy tubes tomorrow to help alleviate hydronephrosis which is suspected to be secondary to metastatic prostate carcinoma Metastatic prostate cancer -Oncology following, anticipate possible CT guided bx of liver lesions Heparin for DVT prophylaxis.
[2018-09-21] MEDS ORDERED: Methylnaltrexone Inj 12 MG/0.6 ML Vial SQ ONE (13:45)
[2018-09-21 13:52] LABS: Eosinophils 4 % (0-4); Lymphocytes 5 % (9-44); Monocytes 5 % (0-8); Platelet Estimate Normal (Normal); Platelet Morphology Clumped (Normal); Promyelocyte 1 % (0-0)
[2018-09-21] MEDS: DAPTOMYCIN IV.SIG SCH (14:27)
[2018-09-21] MEDS: Latanoprost 0.005% Opth Drops 2.5 ML Bottle EACH EYE SCH (21:18)
[2018-09-21] MEDS: LORazepam 0.5 MG Tablet PO PRN (21:46)
[2018-09-22] MEDS: Sod Chloride 0.9% Inj 1,000 ML IV.CONT SCH ×4 (00:41→23:55)
[2018-09-22 02:46] LABS: INR 1.1 Ratio; Prothrombin Time 11.1 sec (9.8-11.6)
[2018-09-22] MEDS: Tolterodine Tartrate LA 4 MG Capsule PO SCH (08:27)
[2018-09-22] MEDS: Calcium Carbonate 500 MG Tablet PO SCH ×2 (08:27→20:47)
[2018-09-22] MEDS: buPROPion 150 MG 12 HR Tablet PO SCH (08:27)
[2018-09-22] MEDS ORDERED: fentaNYL Citrate Inj 250 MCG/5 ML Ampul ONE (11:04)
[2018-09-22] MEDS ORDERED: ceFAZolin 2 GM Premix Inj 2 GM/50 ML PIGGYBACK IV.SIG ONE (11:14)
[2018-09-22] MEDS ORDERED: Sodium Chlor 0.9% Inj 250 ML ONE (11:15)
--- NOTE | 2018-09-22 11:23 | P.PN ---
Subjective Interval history: Follow-up for sepsis. Nursing denies any acute changes overnight. Patient himself has some mild abdominal pain when I palpate. is at the bedside has a few questions regarding long-term goals. I informed her that at least focusing on the short- term goals included addressing the sepsis that the patient came in with which involved the urinary tract likely associated with hydronephrosis Physical Exam Vital signs: Vital Signs 09/21/18 12:12 09/21/18 12:34 09/21/18 16:57 Temperature 98.9 F 98.4 F Pulse Rate 69 68 67 Respiratory Rate 16 16 Blood Pressure 147/78 H 152/76 H Pulse Oximetry 97 95 09/21/18 18:00 09/21/18 20:00 09/22/18 00:00 Temperature 98.0 F 97.9 F Pulse Rate 66 73 78 Respiratory Rate 16 18 Blood Pressure 157/83 H 158/80 H Pulse Oximetry 97 94 L 09/22/18 04:00 09/22/18 08:25 Temperature 97.7 F 98.2 F Pulse Rate 79 67 Respiratory Rate 18 16 Blood Pressure 156/78 H 150/75 H Pulse Oximetry 95 98 Intake & Output 09/21/18 09/22/18 09/22/18 18:59 06:59 18:59 Intake Total 1000 / 1000 1761 / 1761 1000 / 1000 Output Total 2800 / 2800 Balance 1000 / 1000 -1039 / -1039 1000 / 1000 Weight 79 kg Intake: IV 1000 / 1000 1521 / 1521 1000 / 1000 NS Inj 1,000 ML @ 125 mls/hr IV 1000 / 1000 1421 / 1421 1000 / 1000 .CONT .Q8H [facility] Rx#:[id number] Cubicin Inj 480 MG In NS Inj 100 / 100 100 ML @ 200 mls/hr IV.SIG Q48H [facility] Rx#:[id number] Oral 240 / 240 Output: Urine 2800 / 2800 Other: Date of Last Bowel Movement 09/21/18 09/21/18 # Bowel Movements 0 Narrative: Heart sounds regular rate and rhythm, no murmurs Clear lungs bilaterally, unlabored breathing Mildly tender diffuse abdomen, soft, nondistended - Urinary Catheter Management Suprapubic Cath placed during this visit: yes Reason for continuing: Chronic Urinary Retention Insertion date: 09/20/18 Insertion time: 03:20 Results - Labs CBC & Chem 7: 11/08/18 12:20 09/22/18 05:10 Laboratory Results - last 24 hr 09/21/18 09/21/18 09/21/18 12:20 17:26 17:26 WBC 9.7 RBC 2.67 L Hgb 8.6 L Hct 25.0 L MCV 93.6 MCH 32.2 MCHC 34.4 RDW 18.6 H Plt Count 265 MPV 6.8 L Prelim Diff (Auto) Slide review pending Neut % (Auto) 79.0 H Lymph % (Auto) 8.1 L [place] % (Auto) 8.9 H Eos % (Auto) 3.8 Baso % (Auto) 0.2 Neut # (Auto) 7.7 Lymph # (Auto) 0.8 L [place] # (Auto) 0.9 Eos # (Auto) 0.4 Baso # (Auto) 0.0 WBC Differential Manual diff final Seg Neuts % (Manual) 82 H Band Neuts % (Manual) 3 Lymphocytes % (Manual) 5 L Monocytes % (Manual) 5 Eosinophils % (Manual) 4 Promyelocytes % (Man) 1 H Abs Neuts (Manual) 8.3 H Differential Comment . Platelet Estimate Normal Platelet Morphology Clumped H PT 11.1 INR 1.1 APTT 40.9 H Random Vancomycin 09/22/18 05:10 WBC RBC Hgb Hct MCV MCH MCHC RDW Plt Count MPV Prelim Diff (Auto) Neut % (Auto) Lymph % (Auto) [place] % (Auto) Eos % (Auto) Baso % (Auto) Neut # (Auto) Lymph # (Auto) [place] # (Auto) Eos # (Auto) Baso # (Auto) WBC Differential Seg Neuts % (Manual) Band Neuts % (Manual) Lymphocytes % (Manual) Monocytes % (Manual) Eosinophils % (Manual) Promyelocytes % (Man) Abs Neuts (Manual) Differential Comment Platelet Estimate Platelet Morphology PT INR APTT Random Vancomycin 15.7 Microbiology 09/19/18 18:09 Blood - Peripheral Aerobic Blood Culture - Preliminary No growth in 3 days 09/19/18 18:09 Blood - Peripheral Anaerobic Blood Culture - Preliminary No growth in 3 days 09/19/18 18:15 Blood - Peripheral Aerobic Blood Culture - Preliminary No growth in 3 days 09/19/18 18:15 Blood - Peripheral Anaerobic Blood Culture - Preliminary S. aureus MRSA 11/06/18 18:13 Suprapubic Urine Urine Culture - Final S. aureus MRSA Assessment and Plan - Plan This patient is a 73-year-old male with a diagnosis of metastatic prostate cancer, urinary obstruction with a suprapubic catheter. The patient presents the emergency department with a 1 day history of weakness, chills, fever. In the emergency department the patient was found to have a urinary tract. Nephrostomy planned. Severe sepsis secondary to catheter associated urinary tract infection present on admission -Much improved since admission MRSA bacteremia likely secondary to UTI cystitis ID following, daptomycin for now Secondary hyperparathyroidism 2/2 Renal disease Hypocalcemia -IV fluids Nephrology following -Continue p.o. Os-Karl Anemia OCD - s/p transfusions, stable, oncology following Possible bladder obstruction Worsening renal function Per nephrology, urology has been consulted and plans for nephrostomy tubes today to help alleviate hydronephrosis which is suspected to be secondary to metastatic prostate carcinoma Metastatic prostate cancer -Oncology following, anticipate possible CT guided bx of liver lesions Heparin for DVT prophylaxis.
[2018-09-22] MEDS ORDERED: Iohexol 350 MG/ML 50 ML Vial (for Rad Diag) IVCONTRAST ONE (12:02)
[2018-09-22] MEDS ORDERED: HYDROmorphone PF Inj 2 MG/ML Vial ONE (13:10)
--- NOTE | 2018-09-22 13:17 | IR ---
EXAM DATE: 09/22/2018 12:24 PM EST AGE/SEX: 73 years / Male INDICATIONS: jojo woodard CLINICAL DATA: This is the patient's initial encounter. Patient reports that signs and symptoms have been present for 3 days and indicates a pain score of 0/10. MEDICAL/SURGICAL HISTORY: Hepatitis B. Hypertension. Cholecystectomy. Hip Replacement [place] [facility] [place]/22/2018. . FLUORO TIME (min): 7.7 IMAGE SERIES: 8 SEDATION TIME (min): 30 CONTRAST (cc): 50 Omnipaque (iohexol) 350 MEDICATION(S): 3.5mg midazolam (Versed) IV 175mcg fentanyl (Sublimaze) IV DEVICE(S): 8 Greek nephroureteral stent 8x24 . . PROCEDURE : 1. Ultrasound-guided puncture of the kidney. 2. Antegrade percutaneous pyelogram. 3. Percutaneous nephroureteral stent placement. 4. Conscious sedation with continuous EKG and oximetry monitoring. The risks, benefits and alternatives to the procedure were explained and verbal and written consent w as obtained. The site was prepped in sterile fashion. Full sterile technique was used, including ca p, mask, sterile gloves and gown and a large sterile sheet. Hand hygiene and 2% chlorhexidine and/or betadine/alcohol prep was utilized per protocol for cutaneous antisepsis. Sterile gel and sterile p robe cover were utilized for ultrasound guidance. The skin and subcutaneous tissues were infiltrated with local anesthetic solution. With ultrasound and fluoroscopic guidance the selected kidney was punctured and a percutaneous antegr jessica pyelogram was performed demonstrating a dilated collecting system. Serial dilatation was perform ed and the prescribed nephroureteral stent was placed with the proximal portion within the renal pelv is and the distal extent in the urinary bladder. Injection of positive contrast demonstrates good po sition of the catheter. Conscious sedation was performed with the prescribed dosages and duration as above in the presence of an independent trained radiology nurse to assist in the monitoring of the patient. EKG and oximetry remained stable throughout the procedure. The patient tolerated the procedure well and there were n o complications. The patient was sent to post anesthesia recovery in stable condition. CONCLUSION: 1. Uncomplicated nephroureteral stent placement as above. Electronically signed by: Silas Jackson MD 09/22/2018 1:16 PM EST
[2018-09-22 13:25] LABS: Calcium 5.9 mg/dL (8.5-10.1)
[2018-09-22 13:44] LABS: Total Protein 6.4 g/dL (6.4-8.2)
[2018-09-22 14:03] LABS: Calcium-Albumin Corrected 6.2 mg/dL (8.5-10.1)
--- NOTE | 2018-09-22 15:04 | P.PNNP ---
Subjective Interval history: Patient was seen s/p bilateral percutaneous nephrostomy tube placement. Patient stated his pain post procedure was 08/23, RN gave pain medication. Will continue to monitor renal function. <Cydney Adamson - Last Filed: 09/22/18 16:43> Physical Exam Vital signs: Vital Signs 09/21/18 16:57 09/21/18 18:00 09/21/18 20:00 Temperature 98.4 F 98.0 F Pulse Rate 67 66 73 Respiratory Rate 16 16 Blood Pressure 152/76 H 157/83 H Pulse Oximetry 95 97 09/22/18 00:00 09/22/18 04:00 09/22/18 08:00 Temperature 97.9 F 97.7 F Pulse Rate 78 79 67 Respiratory Rate 18 18 Blood Pressure 158/80 H 156/78 H Pulse Oximetry 94 L 95 09/22/18 08:25 09/22/18 11:55 Temperature 98.2 F 97.6 F Pulse Rate 67 71 Respiratory Rate 16 18 Blood Pressure 150/75 H 137/87 Pulse Oximetry 98 93 L Intake & Output 09/21/18 09/22/18 09/22/18 18:59 06:59 18:59 Intake Total 1000 / 1000 1761 / 1761 1240 / 1240 Output Total 2800 / 2800 500 / 500 Balance 1000 / 1000 -1039 / -1039 740 / 740 Weight 79 kg Intake: IV 1000 / 1000 1521 / 1521 1000 / 1000 NS Inj 1,000 ML @ 125 mls/hr IV 1000 / 1000 1421 / 1421 1000 / 1000 .CONT .Q8H [facility] Rx#:[id number] Cubicin Inj 480 MG In NS Inj 100 / 100 100 ML @ 200 mls/hr IV.SIG Q48H [facility] Rx#:[id number] Oral 240 / 240 240 / 240 Output: Urine 2800 / 2800 Urine Amount (Catheter) 500 / 500 Suprapubic 500 / 500 Other: Date of Last Bowel Movement 09/21/18 09/21/18 # Bowel Movements 0 - Constitutional mild distress Comments: Patient is s/p percutaneous bilateral nephrostomy tube placement. Mild distress due to abdominal pain. - Routine HEENT Exam Head: Present: normocephalic Eye: Present: EOMI, PERRL ENT: Present: mucous membranes moist - Routine Neck Exam Present: trachea midline. Absent: JVD, tracheal deviation - Routine Respiratory Exam Absent: accessory muscle use, patient mechanically ventilated - Routine Cardiovascular Exam Present: RRR. Absent: murmur, gallop - Routine Abdominal Exam Present: tenderness - Routine Extremities Exam Absent: clubbing, edema - Routine Skin Exam Present: warm - Routine Neurological Exam Present: alert - Detailed Neurological Exam: Coma Scale Eye Opening: Spontaneous - Urinary Catheter Management Suprapubic Cath placed during this visit: yes Reason for continuing: Chronic Urinary Retention Insertion date: 09/20/18 Insertion time: 03:20 <Cydney Adamson - Last Filed: 09/22/18 16:43> Vital signs: Vital Signs 09/22/18 00:00 09/22/18 04:00 09/22/18 08:00 Temperature 97.9 F 97.7 F Pulse Rate 78 79 67 Respiratory Rate 18 18 Blood Pressure 158/80 H 156/78 H Pulse Oximetry 94 L 95 09/22/18 08:25 09/22/18 11:55 09/22/18 14:58 Temperature 98.2 F 97.6 F 98.1 F Pulse Rate 67 71 85 Respiratory Rate 16 18 28 H Blood Pressure 150/75 H 137/87 181/96 H Pulse Oximetry 98 93 L 95 09/22/18 15:26 09/22/18 17:56 09/22/18 19:00 Temperature 100.9 F H Pulse Rate 84 89 Respiratory Rate Blood Pressure Pulse Oximetry 09/22/18 19:59 09/22/18 20:00 Temperature 98.3 F Pulse Rate 91 H 89 Respiratory Rate 20 Blood Pressure 154/73 H Pulse Oximetry 95 Intake & Output 09/22/18 09/22/18 09/23/18 06:59 18:59 06:59 Intake Total 1761 / 1761 2240 / 2240 100 / 100 Output Total 2800 / 2800 500 / 500 1475 / 1475 Balance -1039 / -1039 1740 / 1740 -1375 / -1375 Weight 79 kg Intake: IV 1521 / 1521 1999 100 / 100 NS Inj 1,000 ML @ 125 mls/hr IV 1421 / 1421 1999 .CONT .Q8H [facility] Rx#:[id number] Cubicin Inj 480 MG In NS Inj 100 / 100 100 ML @ 200 mls/hr IV.SIG Q48H [facility] Rx#:[id number] Rocephin Inj 1,000 MG In NS Inj 100 / 100 100 ML @ 200 mls/hr IV.SIG Q24H [facility] Rx#:[id number] Oral 240 / 240 240 / 240 Output: Urine 2800 / 2800 Urine Amount (Catheter) 500 / 500 175 / 175 Suprapubic 500 / 500 175 / 175 Wound Drainage 1300 / 1300 Left Lower Back 850 / 850 Right Lower Back 450 / 450 Other: Date of Last Bowel Movement 09/21/18 # Bowel Movements 0 - Urinary Catheter Management Suprapubic Cath placed during this visit: no <Juan Ortega - Last Filed: 09/22/18 20:09> Assessment and Plan - Assessment (1) Acute on chronic kidney failure Code(s): N17.9 - Acute kidney failure, unspecified; N18.9 - Chronic kidney disease, unspecified Status: Acute Plan: Acute on chronic kidney disease could be due to blockage of suprapubic catheter due to clotted blood/debris etc. Patient had renal ultrasound done on 09/19/18 which showed bilateral hydronephrosis. Suprapubic catheter had a history of blockage and was changed on admission. Patient was making urine but renal function continued to decline. Patient had bilateral percutaneous nephrostomy 09/22/18. Will continue to monitor renal function. Monitor urine output. . (2) Acute UTI Code(s): N39.0 - Urinary tract infection, site not specified Status: Acute Plan: Patient on Ceftriaxone. (3) Prostate cancer metastatic to bone Code(s): C61 - Malignant neoplasm of prostate; C79.51 - Secondary malignant neoplasm of bone Status: Acute Plan: As per reviewing previous documentation, the patient's and patient were concerned about getting a liver biopsy to see if the patient was a candidate for immunotherapy. Oncology consulted. Will follow up with the recommendations. <Cydney Adamson - Last Filed: 09/22/18 16:43> - Assessment (1) Acute on chronic kidney failure Code(s): N17.9 - Acute kidney failure, unspecified; N18.9 - Chronic kidney disease, unspecified Status: Acute (2) Acute UTI Code(s): N39.0 - Urinary tract infection, site not specified Status: Acute (3) Prostate cancer metastatic to bone Code(s): C61 - Malignant neoplasm of prostate; C79.51 - Secondary malignant neoplasm of bone Status: Acute - Attending Attestation patient was seen and examined. Underwent bilateral percutaneous nephrostomy placed. Appears to have good urine output bilaterally. Monitor urine output and renal function. <Juan Ortega - Last Filed: 09/22/18 20:09>
--- NOTE | 2018-09-22 16:25 | P.PNID ---
Subjective Remarks: Patient underwent bilateral nephrostomy tube placement today. Complaining of pain in the lower back. Current temperature axillary 100.2. White blood cell count improved. This is a 73-year-old white male who has known history of metastatic prostate cancer. The patient presented to the emergency department on 09/19/2018 with weakness. The patient's noted that he became very weak on the day prior to presenting to the emergency department. It is also reported that he had cloudiness of the urine from the suprapubic catheter. The patient has a suprapubic catheter in place. His temperature was 100.6 degrees in the emergency department and white count was mildly elevated at 11.8. He also has acute kidney disease. Urinalysis was performed and it showed many white blood cell clumps and a urine culture was taken and it has MRSA. Blood culture also has MRSA in 1 of 4 bottles. There reported that he had Escherichia coli and MRSA cultured from that wound. Review of the prior cultures from the wound of the back shows E. coli, MRSA, and Shaniqua tropicalis on 09/01/2018. Past Medical History: PAST MEDICAL HISTORY: Hepatitis B, hypertension, kidney disease, metastatic prostate cancer with metastasis to bone and now suspected liver, chronic suprapubic catheter, history of cholecystectomy, history of hip replacement, history of vasectomy. Allergies/Adverse Reactions: Allergies morphine Allergy (Severe, Verified 08/19/18 11:17) MORPHINE ALLERGY ADDED 12/19/07 @1500 - N/V Objective Vital Signs 09/21/18 16:57 09/21/18 18:00 09/21/18 20:00 Temperature 98.4 F 98.0 F Pulse Rate 67 66 73 Respiratory Rate 16 16 Blood Pressure 152/76 H 157/83 H Pulse Oximetry 95 97 09/22/18 00:00 09/22/18 04:00 09/22/18 08:00 Temperature 97.9 F 97.7 F Pulse Rate 78 79 67 Respiratory Rate 18 18 Blood Pressure 158/80 H 156/78 H Pulse Oximetry 94 L 95 09/22/18 08:25 09/22/18 11:55 09/22/18 14:58 Temperature 98.2 F 97.6 F 98.1 F Pulse Rate 67 71 85 Respiratory Rate 16 18 28 H Blood Pressure 150/75 H 137/87 181/96 H Pulse Oximetry 98 93 L 95 09/22/18 15:26 Temperature Pulse Rate 84 Respiratory Rate Blood Pressure Pulse Oximetry Intake & Output 09/21/18 09/22/18 09/22/18 18:59 06:59 18:59 Intake Total 1000 / 1000 1761 / 1761 1240 / 1240 Output Total 2800 / 2800 500 / 500 Balance 1000 / 1000 -1039 / -1039 740 / 740 Weight 79 kg Intake: IV 1000 / 1000 1521 / 1521 1000 / 1000 NS Inj 1,000 ML @ 125 mls/hr IV 1000 / 1000 1421 / 1421 1000 / 1000 .CONT .Q8H [facility] Rx#:[id number] Cubicin Inj 480 MG In NS Inj 100 / 100 100 ML @ 200 mls/hr IV.SIG Q48H [facility] Rx#:[id number] Oral 240 / 240 240 / 240 Output: Urine 2800 / 2800 Urine Amount (Catheter) 500 / 500 Suprapubic 500 / 500 Other: Date of Last Bowel Movement 09/21/18 09/21/18 # Bowel Movements 0 09/19/18 18:09 Blood - Peripheral Aerobic Blood Culture - Preliminary No growth in 3 days 09/19/18 18:09 Blood - Peripheral Anaerobic Blood Culture - Preliminary No growth in 3 days 09/19/18 18:15 Blood - Peripheral Aerobic Blood Culture - Preliminary No growth in 3 days 09/19/18 18:15 Blood - Peripheral Anaerobic Blood Culture - Preliminary S. aureus MRSA 09/19/18 18:13 Suprapubic Urine Urine Culture - Final S. aureus MRSA Lab - Hematology Results 09/21/18 12:20 WBC 9.7 RBC 2.67 L Hgb 8.6 L Hct 25.0 L MCV 93.6 MCH 32.2 MCHC 34.4 RDW 18.6 H Plt Count 265 MPV 6.8 L Prelim Diff (Auto) Slide review pending Neut % (Auto) 79.0 H Lymph % (Auto) 8.1 L [place] % (Auto) 8.9 H Eos % (Auto) 3.8 Baso % (Auto) 0.2 Neut # (Auto) 7.7 Lymph # (Auto) 0.8 L [place] # (Auto) 0.9 Eos # (Auto) 0.4 Baso # (Auto) 0.0 WBC Differential Manual diff final Seg Neuts % (Manual) 82 H Band Neuts % (Manual) 3 Lymphocytes % (Manual) 5 L Monocytes % (Manual) 5 Eosinophils % (Manual) 4 Promyelocytes % (Man) 1 H Abs Neuts (Manual) 8.3 H Differential Comment . Platelet Estimate Normal Platelet Morphology Clumped H Lab - Chemistry Results 09/20/18 09/21/18 09/22/18 19:27 06:40 05:10 Sodium 135 L 135 L Potassium 4.2 4.0 Chloride 104 105 Carbon Dioxide 17.6 L 16.0 L Anion Gap 13 14 BUN 68 H 68 H Creatinine 5.09 H 5.38 H Estimated GFR 11 L 10 L Random Glucose 89 102 Calcium 6.0 L* 5.9 L* Prot Corrected Calcium 6.2 L* Phosphorus 4.3 4.4 Total Protein 6.4 Albumin 1.8 L Imaging: ITS Impressions Abdomen/Bladder Ultrasound 09/19/18 00:00 CONCLUSION: Moderate bilateral hydronephrosis. Drainage Catheter Insertion 09/22/18 00:00 CONCLUSION: 1. Uncomplicated nephroureteral stent placement as above. Physical Exam: PHYSICAL EXAMINATION: GENERAL: Patient in no acute distress. Appears drowsy. HEENT: Head is atraumatic. Extraocular movements are grossly intact. Pupils reactive to light. No icterus. Oropharynx moist mucosa without lesions. NECK: Supple without adenopathy. LUNGS: Clear breath sounds. HEART: Regular S1 and S2. No murmurs. ABDOMEN: Bowel sounds present, soft. Bilateral nephrostomy tube in place. Functioning. SKIN: No rash. NEUROLOGIC: Nonfocal. PSYCHIATRIC: Calm and cooperative. Assessment and Plan - Plan IMPRESSION: 1. Bacteremia due to methicillin-resistant Staphylococcus aureus originating from the urine. 2. Urinary tract infection due to MRSA. Bilateral hydronephrosis. Both nephrostomy tubes x2. 3. Metastatic prostate cancer. 4. Acute kidney disease. RECOMMENDATIONS: 1. Continue treatment for the MRSA with daptomycin. The patient has severe kidney dysfunction and would like to avoid vancomycin. 2. Add ceftriaxone because he had E. coli cultured from the back wound. 3. Repeat blood cultures. 4. Monitor clinical status. Dr. Anna Sims covering for ID this weekend.
[2018-09-22] MEDS: Gentamicin 0.1% Cream 15 GM Cream TOPICAL SCH (17:36)
[2018-09-22] MEDS: Collagenase Oint 30 GM Tube TOPICAL SCH (17:36)
[2018-09-22] MEDS ORDERED: Acetaminophen 325 MG Tablet PO PRN (18:10)
--- NOTE | 2018-09-22 18:51 | P.PNONC ---
Subjective Interval history: Patient seen and examined, vital signs, labs, procedure notes reviewed. He underwent bilateral percutaneous nephrostomy tube basement today. The the patient is currently febrile. His is at bedside. She wishes to discuss goals of care and comfort measures. Objective Vital Signs/Intake & Output: Vital Signs 09/21/18 20:00 09/22/18 00:00 09/22/18 04:00 Temperature 98.0 F 97.9 F 97.7 F Pulse Rate 73 78 79 Respiratory Rate 16 18 18 Blood Pressure 157/83 H 158/80 H 156/78 H Pulse Oximetry 97 94 L 95 09/22/18 08:00 09/22/18 08:25 09/22/18 11:55 Temperature 98.2 F 97.6 F Pulse Rate 67 67 71 Respiratory Rate 16 18 Blood Pressure 150/75 H 137/87 Pulse Oximetry 98 93 L 09/22/18 14:58 09/22/18 15:26 09/22/18 17:56 Temperature 98.1 F 100.9 F H Pulse Rate 85 84 Respiratory Rate 28 H Blood Pressure 181/96 H Pulse Oximetry 95 Intake & Output 09/21/18 09/22/18 09/22/18 18:59 06:59 18:59 Intake Total 1000 / 1000 1761 / 1761 2240 / 2240 Output Total 2800 / 2800 500 / 500 Balance 1000 / 1000 -1039 / -1039 1740 / 1740 Weight 79 kg Intake: IV 1000 / 1000 1521 / 1521 1999 / 1999 NS Inj 1,000 ML @ 125 mls/hr IV 1000 / 1000 1421 / 1421 1999 .CONT .Q8H [facility] Rx#:[id number] Cubicin Inj 480 MG In NS Inj 100 / 100 100 ML @ 200 mls/hr IV.SIG Q48H [facility] Rx#:[id number] Oral 240 / 240 240 / 240 Output: Urine 2800 / 2800 Urine Amount (Catheter) 500 / 500 Suprapubic 500 / 500 Other: Date of Last Bowel Movement 09/21/18 09/21/18 # Bowel Movements 0 Result Diagrams: 09/21/18 12:20 09/22/18 05:10 Laboratory Results: Laboratory Results - last 24 hr 09/21/18 09/22/18 09/22/18 17:26 05:10 05:10 PT 11.1 INR 1.1 Sodium 135 L Potassium 4.0 Chloride 105 Carbon Dioxide 16.0 L Anion Gap 14 BUN 68 H Creatinine 5.38 H Estimated GFR 10 L Random Glucose 102 Calcium 5.9 L* Prot Corrected Calcium 6.2 L* Total Protein 6.4 Random Vancomycin 15.7 Culture Results: Microbiology 09/19/18 18:09 Aerobic Blood Culture - Preliminary Blood - Peripheral No growth in 3 days Anaerobic Blood Culture - Preliminary No growth in 3 days 09/19/18 18:15 Aerobic Blood Culture - Preliminary Blood - Peripheral No growth in 3 days Anaerobic Blood Culture - Preliminary S. aureus MRSA 09/19/18 18:13 Urine Culture - Final Suprapubic Urine S. aureus MRSA Imaging Studies: Impressions Drainage Catheter Insertion 09/22/18 00:00 CONCLUSION: 1. Uncomplicated nephroureteral stent placement as above. Medications: Active Medications Generic Name Dose Route Start Last Admin Trade Name Freq PRN Reason Stop Dose Admin Bupropion HCl 150 mg 09/20/18 09:00 09/22/18 08:27 Wellbutrin Sr PO 150 mg DAILY [facility] Administration Calcium Carbonate 1,500 mg 09/19/18 21:00 09/22/18 08:27 Oscal PO 1,500 mg BID [facility] Administration Collagenase 1 applicatio 09/21/18 12:00 09/22/18 17:36 Santyl Oint TOPICAL Not Given DAILY [facility] Fentanyl 1 patch 09/19/18 21:00 09/20/18 00:29 Duragesic 25 Mcg Patch.72hr T-DERMAL 1 patch Q3D [facility] Administration Gentamicin Sulfate 1 applicatio 09/21/18 12:00 09/22/18 17:36 Gentamicin 0.1% Cream TOPICAL Not Given DAILY [facility] Heparin Sodium (Porcine) 5,000 units 09/21/18 09:00 09/21/18 08:49 Heparin Inj SQ 5,000 units Q12HR [facility] Administration Hydrocortisone Acetate 1 applicatio 09/20/18 18:00 09/22/18 14:56 Anusol-Hc RECTAL Not Given TID [facility] Sodium Chloride 1,000 mls @ 125 mls/hr 09/19/18 20:30 09/22/18 17:37 Ns Inj IV.CONT 125 mls/hr .Q8H [facility] Administration Daptomycin 480 mg/ Sodium 100 mls @ 200 mls/hr 09/21/18 13:00 09/21/18 19:45 Chloride IV.SIG Infused Q48H [facility] Infusion Latanoprost 1 drop 09/19/18 21:00 09/21/18 21:18 Xalatan 0.005% Opth Drops EACH EYE 1 drop HS [facility] Administration Lorazepam 0.5 mg 09/20/18 14:00 09/21/18 21:46 Ativan PO 0.5 mg Q8H PRN Administration ANXIETY Ondansetron HCl 4 mg 09/20/18 13:45 09/21/18 16:54 Zofran Inj IV.PUSH 4 mg Q8H PRN Administration NAUSEA OR VOMITING Oxycodone/Acetaminophen 1 tab 09/20/18 14:00 09/22/18 14:35 Percocet 7.5/325 Mg PO 1 tab Q6H [facility] Administration Sennosides 17.2 mg 09/19/18 20:16 09/21/18 08:49 Senokot PO 17.2 mg Q12H PRN Administration Moderate Constipation Tolterodine Tartrate 4 mg 09/20/18 09:00 09/22/18 08:27 Detrol La PO 4 mg DAILY [facility] Administration Vitamin D 2,000 unit 09/20/18 09:00 09/22/18 08:27 Vitamin D3 PO 2,000 unit DAILY [facility] Administration Objective Remarks: General: Elderly male, laying in bed, he appears to be uncomfortable, his face is flushed. HEENT: Head atraumatic normocephalic, conjunctive a mildly pale, sclerae anicteric. Oral exam dry mucous membranes. Neck exam: No palpable cervical supraclavicular adenopathy. Cardiac examination: Regular rate rhythm, S1-S2 faint systolic murmur. Respiratory exam: Poor inspiratory effort, decreased bibasilar breath sounds, prolonged expiratory phase. Abdominal examination: Thin abdomen, soft, no obvious tenderness, suprapubic catheter is in place. No palpable hepatosplenomegaly. Lower extremities: Trace pretibial edema. Bilateral percutaneous nephrostomy drains are in place. 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 Musculoskeletal: Generally decreased muscle mass and tone. Skin examination: Warm and sweaty. Assessment/Plan - Plan Mr. Queen is a 73-year-old man with a diagnosis of metastatic prostate carcinoma , recently he was found to have progressive disease on PET/CT scan while on systemic therapy consisting of Xtandi and Lupron. He is progressively decompensating from a clinical standpoint, he has renal failure, hepatic dysfunction and febrile illness/sepsis. His performance status is at best 4. At today's visit I talked to the patient and his about comfort measures and end-of-life care. The patient's is very receptive to hospice, she would like him to remain in the hospital until he may potentially undergo internalization of the percutaneous nephrostomy tubes. Recommendations: Metastatic prostate carcinoma: He has few good therapeutic options. The likelihood that he may benefit from immunotherapy is less than 10%. If he is found to have disease that would respond to immunotherapy, I doubt he would be able to even tolerate immunotherapy. I therefore recommend hospice, I recommend comfort oriented care. The patient's is in agreement, the patient is also in agreement. I requested hospice consultation. Febrile illness: Continue broad-spectrum antibiotics. I have added Tylenol and dexamethasone.
[2018-09-22] MEDS: LORazepam 0.5 MG Tablet PO PRN (19:21)
[2018-09-22] MEDS: Dextrose 5% in Water Inj 1,000 ML IV.CONT SCH (19:51)
[2018-09-22] MEDS: Heparin - SQ 10,000 UNITS/ML Vial SQ SCH (20:44)
[2018-09-22] MEDS: Latanoprost 0.005% Opth Drops 2.5 ML Bottle EACH EYE SCH (20:49)
[2018-09-23] MEDS: LORazepam 0.5 MG Tablet PO PRN ×2 (03:53→18:05)
[2018-09-23] MEDS: Dextrose 5% in Water Inj 1,000 ML IV.CONT SCH (06:08)
[2018-09-23 06:46] LABS: Albumin 1.8 g/dL (3.4-5.0); Alkaline Phosphatase 106 U/L (45-117); Anion Gap 15 meq/L (5-15); Aspartate Aminotransferase 12 U/L (15-37); Blood Urea Nitrogen 66 mg/dL (7-18); Calcium 5.9 mg/dL (8.5-10.1); Carbon Dioxide 15.6 meq/L (21.0-32.0); Chloride 107 meq/L (98-107); Glomerular Filtration Rate 10 mL/min (>89); Glucose,Random 98 mg/dL (74-106); Sodium 138 meq/L (136-145); Total Protein 6.3 g/dL (6.4-8.2)
--- NOTE | 2018-09-23 09:29 | P.PNONC ---
Subjective Interval history: T-max 100.9 F. Patient lying in bed, reports not feeling well. Reports soreness with movement at the nephrology tube sites, right greater than left. Reports testicular pain, this pain is no different from previous pain. He requests his pain medications. Patient noted to have sanguinous blood in Engel catheter tubing, appears to likely be clotted, no blood noted in the drainage bag. Objective Vital Signs/Intake & Output: Vital Signs 09/22/18 11:55 09/22/18 14:58 09/22/18 15:26 Temperature 97.6 F 98.1 F Pulse Rate 71 85 84 Respiratory Rate 18 28 H Blood Pressure 137/87 181/96 H Pulse Oximetry 93 L 95 09/22/18 17:56 09/22/18 19:00 09/22/18 19:59 Temperature 100.9 F H Pulse Rate 89 91 H Respiratory Rate Blood Pressure Pulse Oximetry 09/22/18 20:00 09/23/18 00:00 09/23/18 03:00 Temperature 98.3 F 97.7 F Pulse Rate 89 65 58 L Respiratory Rate 20 20 Blood Pressure 154/73 H 142/73 H Pulse Oximetry 95 97 09/23/18 04:00 Temperature Pulse Rate 61 Respiratory Rate 18 Blood Pressure 135/73 Pulse Oximetry 97 Intake & Output 09/22/18 09/23/18 09/23/18 18:59 06:59 18:59 Intake Total 2290 / 2290 2059 / 2059 Output Total 500 / 500 3725 / 3725 Balance 1790 / 1790 -1665 / -1665 Weight 83 kg Intake: IV 2049 1100 / 1100 NS Inj 1,000 ML @ 125 mls/hr IV 1999 / 1999 1000 / 1000 .CONT .Q8H [facility] Rx#:[id number] Ancef 2 GM Premix Inj 2 gm In 50 / 50 50 ml @ 0 mls/hr IV.SIG .STK- [facility] Rx#:[id number] Rocephin Inj 1,000 MG In NS Inj 100 / 100 100 ML @ 200 mls/hr IV.SIG Q24H [facility] Rx#:[id number] Oral 240 / 240 960 / 960 Output: Urine Amount (Catheter) 500 / 500 275 / 275 Suprapubic 500 / 500 275 / 275 Wound Drainage 3450 / 3450 Left Lower Back 2400 / 2400 Right Lower Back 1050 / 1050 Other: # Bowel Movements 0 Result Diagrams: 09/23/18 10:25 09/23/18 06:05 Laboratory Results: Laboratory Results - last 24 hr 09/22/18 09/23/18 05:10 06:05 Sodium 135 L 138 Potassium 4.0 4.0 Chloride 105 107 Carbon Dioxide 16.0 L 15.6 L Anion Gap 14 15 BUN 68 H 66 H Creatinine 5.38 H 5.47 H Estimated GFR 10 L 10 L Random Glucose 102 98 Calcium 5.9 L* 5.9 L* Prot Corrected Calcium 6.2 L* 6.3 L* Total Bilirubin 0.3 AST 12 L ALT Less than 6 L Alkaline Phosphatase 106 Total Protein 6.4 6.3 L Albumin 1.8 L Culture Results: Microbiology 09/19/18 18:09 Aerobic Blood Culture - Preliminary Blood - Peripheral No growth in 3 days Anaerobic Blood Culture - Preliminary No growth in 3 days 09/19/18 18:15 Aerobic Blood Culture - Preliminary Blood - Peripheral No growth in 3 days Anaerobic Blood Culture - Preliminary S. aureus MRSA 09/19/18 18:13 Urine Culture - Final Suprapubic Urine S. aureus MRSA Imaging Studies: Impressions Drainage Catheter Insertion 09/22/18 00:00 CONCLUSION: 1. Uncomplicated nephroureteral stent placement as above. Medications: Active Medications Generic Name Dose Route Start Last Admin Trade Name Freq PRN Reason Stop Dose Admin Bupropion HCl 150 mg 09/20/18 09:00 09/22/18 08:27 Wellbutrin Sr PO 150 mg DAILY [facility] Administration Calcium Carbonate 1,500 mg 09/19/18 21:00 09/22/18 20:47 Oscal PO Not Given BID [facility] Collagenase 1 applicatio 09/21/18 12:00 09/22/18 17:36 Santyl Oint TOPICAL Not Given DAILY [facility] Fentanyl 1 patch 09/19/18 21:00 09/22/18 20:42 Duragesic 25 Mcg Patch.72hr T-DERMAL 1 patch Q3D [facility] Administration Gentamicin Sulfate 1 applicatio 09/21/18 12:00 09/22/18 17:36 Gentamicin 0.1% Cream TOPICAL Not Given DAILY [facility] Heparin Sodium (Porcine) 5,000 units 09/21/18 09:00 09/22/18 20:44 Heparin Inj SQ 5,000 units Q12HR [facility] Administration Hydrocortisone Acetate 1 applicatio 09/20/18 18:00 09/22/18 19:21 Anusol-Hc RECTAL Not Given TID [facility] Sodium Chloride 1,000 mls @ 125 mls/hr 09/19/18 20:30 09/22/18 23:55 Ns Inj IV.CONT 125 mls/hr .Q8H [facility] Administration Daptomycin 480 mg/ Sodium 100 mls @ 200 mls/hr 09/21/18 13:00 09/21/18 19:45 Chloride IV.SIG Infused Q48H [facility] Infusion Ceftriaxone Sodium 1,000 mg/ 100 mls @ 200 mls/hr 09/22/18 17:00 09/22/18 19: 39 Sodium Chloride IV.SIG Infused Q24H [facility] Infusion Dextrose 1,000 mls @ 75 mls/hr 09/22/18 16:45 09/23/18 06:08 D5w Inj IV.CONT Not Given .[id number] [facility] Latanoprost 1 drop 09/19/18 21:00 09/22/18 20:49 Xalatan 0.005% Opth Drops EACH EYE 1 drop HS [facility] Administration Lorazepam 0.5 mg 09/20/18 14:00 09/23/18 03:53 Ativan PO 0.5 mg Q8H PRN Administration ANXIETY Ondansetron HCl 4 mg 09/20/18 13:45 09/21/18 16:54 Zofran Inj IV.PUSH 4 mg Q8H PRN Administration NAUSEA OR VOMITING Oxycodone/Acetaminophen 1 tab 09/20/18 14:00 09/23/18 02:22 Percocet 7.5/325 Mg PO 1 tab Q6H [facility] Administration Sennosides 17.2 mg 09/19/18 20:16 09/21/18 08:49 Senokot PO 17.2 mg Q12H PRN Administration Moderate Constipation Tolterodine Tartrate 4 mg 09/20/18 09:00 09/22/18 08:27 Detrol La PO 4 mg DAILY [facility] Administration Vitamin D 2,000 unit 09/20/18 09:00 09/22/18 08:27 Vitamin D3 PO 2,000 unit DAILY [facility] Administration Objective Remarks: GENERAL: Chronically ill-appearing male patient, in no acute distress. SKIN: Warm and dry. HEAD: Normocephalic. EYES: No scleral icterus. No injection or drainage. NECK: Supple, trachea midline. CARDIOVASCULAR: Regular rate and rhythm without murmurs. RESPIRATORY: Breath sounds equal bilaterally. No accessory muscle use. GASTROINTESTINAL: Abdomen soft, non-tender, nondistended. Bilateral posterior nephrostomy tubes, no swelling or erythema noted. Draining serosanguineous clear fluid. Suprapubic Engel catheter in place, draining sanguinous blood that appears clotted in tube, none in drainage bag. EXTREMITIES: No cyanosis, or edema. MUSCULOSKELETAL: Adequate muscle tone. NEUROLOGICAL: No obvious focal deficit. Awake, alert, and oriented x3. PSYCHIATRIC: Appropriate mood and affect; insight and judgment normal. Assessment/Plan - Plan Mr. Queen is a 73-year-old man with a diagnosis of metastatic prostate carcinoma , recently he was found to have progressive disease on PET/CT scan while on systemic therapy consisting of Xtandi and Lupron. He is progressively decompensating from a clinical standpoint, he has renal failure, hepatic dysfunction and febrile illness/sepsis. Recommendations: 1. Metastatic prostate carcinoma, hospice consult has been placed. 2. Status post bilateral nephrostomy tubes. Draining serosanguineous fluid. Tender to touch at insertion site, right> left, no erythema or swelling. 3. Suprapubic Engel catheter, prasanna blood noted in drainage tube, appears to likely be clotted, no blood noted in urinary drainage bag. Discussed with the patient's nurse Bhakti and charge nurse Sadie. Nurse to place call to urologist and notify and get further instructions in regards to possible irrigation. Ordered stat CBC. Heparin placed on hold. 4. Febrile illness, T-max 100.9 F. Urine and blood cultures positive for MRSA. On daptomycin & ceftriaxone and previously got Ancef and Vanco. 5. Continue to monitor bleeding, await stat CBC results. We will transfuse as necessary. - Attending Statement The exam, history, and the medical decision-making described in the above note were completed with the assistance of the mid-level provider. I reviewed and agree with the findings presented. I attest that I had a [id number] encounter with the patient on the same day, and personally performed and documented my assessment and findings in the medical record. Patient is complaining of blood in the urine and leakage around the nephrostomy tube site Patient has low-grade fever He has metastatic prostate cancer with recent progression. He is on Xtandi and Lupron therapy Urology were notified about the leakage around the nephrostomy tube and blood in the urine. He has suprapubic catheter Continue continue to monitor blood count Blood culture and urine culture for low-grade fever
[2018-09-23] MEDS: Tolterodine Tartrate LA 4 MG Capsule PO SCH (09:42)
[2018-09-23] MEDS: Sod Chloride 0.9% Inj 1,000 ML IV.CONT SCH (09:43)
[2018-09-23] MEDS: Gentamicin 0.1% Cream 15 GM Cream TOPICAL SCH (09:43)
[2018-09-23] MEDS: Calcium Carbonate 500 MG Tablet PO SCH ×2 (09:43→23:03)
[2018-09-23] MEDS: buPROPion 150 MG 12 HR Tablet PO SCH (09:43)
[2018-09-23] MEDS: Collagenase Oint 30 GM Tube TOPICAL SCH (09:43)
[2018-09-23] MEDS: Heparin - SQ 10,000 UNITS/ML Vial SQ SCH (10:23)
[2018-09-23 10:33] LABS: Hemoglobin 8.6 gm/dL (13.0-17.0); Mean Corpuscular HGB Conc 34.6 % (32.0-36.0); Mean Corpuscular Hemoglobin 32.1 pg (27.0-34.0); Mean Corpuscular Volume 92.8 fL (80.0-100.0); Mean Platelet Volume 6.6 fL (7.0-11.0); Platelet Count 293 th/mm3 (150-450); Red Blood Count 2.69 mil/mm3 (4.50-5.90); White Blood Count 9.1 th/mm3 (4.0-11.0)
--- NOTE | 2018-09-23 12:03 | P.PN ---
Subjective Interval history: Follow-up on sepsis, hydronephrosis. Nursing reports that the patient did have some clubbing of the suprapubic catheter. is at the bedside says she just wants to keep the patient comfortable, is looking towards hospice consultation. Physical Exam Vital signs: Vital Signs 09/22/18 14:58 09/22/18 15:26 09/22/18 17:56 Temperature 98.1 F 100.9 F H Pulse Rate 85 84 Respiratory Rate 28 H Blood Pressure 181/96 H Pulse Oximetry 95 09/22/18 19:00 09/22/18 19:59 09/22/18 20:00 Temperature 98.3 F Pulse Rate 89 91 H 89 Respiratory Rate 20 Blood Pressure 154/73 H Pulse Oximetry 95 09/23/18 00:00 09/23/18 03:00 09/23/18 04:00 Temperature 97.7 F Pulse Rate 65 58 L 61 Respiratory Rate 20 18 Blood Pressure 142/73 H 135/73 Pulse Oximetry 97 97 09/23/18 09:40 Temperature 97.9 F Pulse Rate 68 Respiratory Rate 18 Blood Pressure 136/71 Pulse Oximetry 97 Intake & Output 09/22/18 09/23/18 09/23/18 18:59 06:59 18:59 Intake Total 2290 / 2290 2060 / 2060 579 / 579 Output Total 500 / 500 3725 / 3725 Balance 1790 / 1790 -1665 / -1665 579 / 579 Weight 83 kg Intake: IV 2049 / 2049 1100 / 1100 579 / 579 NS Inj 1,000 ML @ 125 mls/hr IV 1999 / 1999 1000 / 1000 579 / 579 .CONT .Q8H [facility] Rx#:[id number] Ancef 2 GM Premix Inj 2 gm In 50 / 50 50 ml @ 0 mls/hr IV.SIG .STK- [facility] Rx#:[id number] Rocephin Inj 1,000 MG In NS Inj 100 / 100 100 ML @ 200 mls/hr IV.SIG Q24H [facility] Rx#:[id number] Oral 240 / 240 960 / 960 Output: Urine Amount (Catheter) 500 / 500 275 / 275 Suprapubic 500 / 500 275 / 275 Wound Drainage 3450 / 3450 Left Lower Back 2400 / 2400 Right Lower Back 1050 / 1050 Other: # Bowel Movements 0 Narrative: Bilateral percutaneous nephrostomy tubes in place, suprapubic catheter draining blood Sleeping in bed, Abdomen soft, nontender Unlabored breathing No lower extremity edema - Urinary Catheter Management Suprapubic Cath placed during this visit: yes Reason for continuing: Chronic Urinary Retention Insertion date: 09/20/18 Insertion time: 03:20 Results - Labs CBC & Chem 7: 09/23/18 10:25 09/23/18 06:05 Laboratory Results - last 24 hr 09/22/18 09/23/18 09/23/18 05:10 06:05 10:25 WBC 9.1 RBC 2.69 L Hgb 8.6 L Hct 25.0 L MCV 92.8 MCH 32.1 MCHC 34.6 RDW 19.0 H Plt Count 293 MPV 6.6 L Sodium 135 L 138 Potassium 4.0 4.0 Chloride 105 107 Carbon Dioxide 16.0 L 15.6 L Anion Gap 14 15 BUN 68 H 66 H Creatinine 5.38 H 5.47 H Estimated GFR 10 L 10 L Random Glucose 102 98 Calcium 5.9 L* 5.9 L* Prot Corrected Calcium 6.2 L* 6.3 L* Total Bilirubin 0.3 AST 12 L ALT Less than 6 L Alkaline Phosphatase 106 Total Protein 6.4 6.3 L Albumin 1.8 L Microbiology 09/19/18 18:15 Blood - Peripheral Aerobic Blood Culture - Preliminary No growth in 4 days 09/19/18 18:15 Blood - Peripheral Anaerobic Blood Culture - Final S. aureus MRSA 09/22/18 19:11 Blood - Peripheral Aerobic Blood Culture - Preliminary No growth in 1 day 09/22/18 19:11 Blood - Peripheral Anaerobic Blood Culture - Preliminary No growth in 1 day 09/22/18 19:06 Blood - Peripheral Aerobic Blood Culture - Preliminary No growth in 1 day 09/22/18 19:06 Blood - Peripheral Anaerobic Blood Culture - Preliminary No growth in 1 day 09/19/18 18:09 Blood - Peripheral Aerobic Blood Culture - Preliminary No growth in 4 days 09/19/18 18:09 Blood - Peripheral Anaerobic Blood Culture - Preliminary No growth in 4 days - Imaging Impressions Drainage Catheter Insertion 09/22/18 00:00 CONCLUSION: 1. Uncomplicated nephroureteral stent placement as above. Assessment and Plan - Plan This patient is a 73-year-old male with a diagnosis of metastatic prostate cancer, urinary obstruction with a suprapubic catheter. The patient presents the emergency department with a 1 day history of weakness, chills, fever. In the emergency department the patient was found to have a urinary tract. Status post bilateral percutaneous nephroureteral stent placement. Severe sepsis secondary to catheter associated urinary tract infection present on admission -Much improved since admission MRSA bacteremia likely secondary to UTI cystitis ID following, daptomycin for now Secondary hyperparathyroidism 2/2 Renal disease Hypocalcemia -IV fluids Nephrology following -Continue p.o. Os-Karl Anemia OCD - s/p transfusions, stable, oncology following Possible bladder obstruction Worsening renal function Hydronephrosis Nephrology following, trend renal function Status post bilateral percutaneous nephroureteral stent placements Metastatic prostate cancer -Oncology following, anticipate possible CT guided bx of liver lesions -hospice consulted by oncology Heparin for DVT prophylaxis.
[2018-09-23] MEDS ORDERED: Calcium Gluconate Inj 2 GM in Dextrose 5% in Water Inj 100 ML IV.SIG ONE ×2 (13:40)
[2018-09-23] MEDS ORDERED: Dextrose 5% in Water Inj 1,000 ML IV.CONT SCH (13:45)
--- NOTE | 2018-09-23 13:45 | P.PNNP ---
Subjective Interval history: nausea today Physical Exam Vital signs: Vital Signs 09/22/18 14:58 09/22/18 15:26 09/22/18 17:56 Temperature 98.1 F 100.9 F H Pulse Rate 85 84 Respiratory Rate 28 H Blood Pressure 181/96 H Pulse Oximetry 95 09/22/18 19:00 09/22/18 19:59 09/22/18 20:00 Temperature 98.3 F Pulse Rate 89 91 H 89 Respiratory Rate 20 Blood Pressure 154/73 H Pulse Oximetry 95 09/23/18 00:00 09/23/18 03:00 09/23/18 04:00 Temperature 97.7 F Pulse Rate 65 58 L 61 Respiratory Rate 20 18 Blood Pressure 142/73 H 135/73 Pulse Oximetry 97 97 09/23/18 08:00 09/23/18 09:40 09/23/18 12:00 Temperature 97.9 F 98.1 F Pulse Rate 59 L 68 69 Respiratory Rate 18 16 Blood Pressure 136/71 145/78 H Pulse Oximetry 97 96 Intake & Output 09/22/18 09/23/18 09/23/18 18:59 06:59 18:59 Intake Total 2290 / 2290 2060 / 2060 579 / 579 Output Total 500 / 500 3725 / 3725 Balance 1790 / 1790 -1665 / -1665 579 / 579 Weight 83 kg Intake: IV 2049 / 0 1100 / 1100 579 / 579 NS Inj 1,000 ML @ 125 mls/hr IV 2000 / 2000 1000 / 1000 579 / 579 .CONT .Q8H [facility] Rx#:[id number] Ancef 2 GM Premix Inj 2 gm In 50 / 50 50 ml @ 0 mls/hr IV.SIG .STK- [facility] Rx#:[id number] Rocephin Inj 1,000 MG In NS Inj 100 / 100 100 ML @ 200 mls/hr IV.SIG Q24H [facility] Rx#:[id number] Oral 240 / 240 960 / 960 Output: Urine Amount (Catheter) 500 / 500 275 / 275 Suprapubic 500 / 500 275 / 275 Wound Drainage 3450 / 3450 Left Lower Back 2400 / 2400 Right Lower Back 1050 / 1050 Other: Date of Last Bowel Movement 09/21/18 # Bowel Movements 0 - Constitutional no acute distress - Routine HEENT Exam Head: Present: normocephalic Eye: Present: EOMI ENT: Present: mucous membranes moist - Routine Neck Exam Present: supple - Routine Respiratory Exam Present: CTA bilaterally - Routine Cardiovascular Exam Present: RRR - Routine Abdominal Exam Present: soft - Routine Skin Exam Present: intact - Routine Neurological Exam Present: alert, oriented X3 - Detailed Neurological Exam: Coma Scale Eye Opening: Spontaneous - Routine Psychiatric Exam Present: normal affect - Urinary Catheter Management Suprapubic Cath placed during this visit: yes Reason for continuing: Chronic Urinary Retention Insertion date: 09/20/18 Insertion time: 03:20 Assessment and Plan - Assessment (1) Acute on chronic kidney failure Code(s): N17.9 - Acute kidney failure, unspecified; N18.9 - Chronic kidney disease, unspecified Status: Acute Plan: Acute on chronic kidney disease could be due to blockage of suprapubic catheter due to clotted blood/debris etc. Patient had renal ultrasound done on 09/19/18 which showed bilateral hydronephrosis. Suprapubic catheter had a history of blockage and was changed on admission. Patient was making urine but renal function continued to decline. Patient had bilateral percutaneous nephrostomy 09/22/18. Improving UOP via nephrostomies: 3.4L UOP total/24 hours However creatinine remains elevated: 5.3 -> 5.4 Continue to monitor Will replace calcium Acidosis with HCO3 15 - will change IVFs to D5W + 150 meq NaHCO3 @ 100cc/hour Planning for hospice evaluation - continue to monitor. (2) Acute UTI Code(s): N39.0 - Urinary tract infection, site not specified Status: Acute Plan: Patient on Ceftriaxone. (3) Prostate cancer metastatic to bone Code(s): C61 - Malignant neoplasm of prostate; C79.51 - Secondary malignant neoplasm of bone Status: Acute Plan: As per reviewing previous documentation, the patient's and patient were concerned about getting a liver biopsy to see if the patient was a candidate for immunotherapy. Oncology consulted. Will follow up with the recommendations. - Plan Hypocalcemia IV calcium today Anemia Hgb 8.6, continue to monitor Poor prognosis
[2018-09-23] MEDS: DAPTOMYCIN IV.SIG SCH (14:01)
[2018-09-23] MEDS: SODIUM CHLOR 0.9% IV.SIG SCH (14:01)
[2018-09-23] MEDS: Sodium Bicarbonate 8.4% Inj 150 MEQ in Dextrose 5% in Water Inj 1,000 ML IV.CONT SCH ×2 (17:14)
[2018-09-23] MEDS: HYDROmorphone PF Inj 2 MG/ML Vial IV.PUSH PRN (21:59)
[2018-09-24] MEDS: Latanoprost 0.005% Opth Drops 2.5 ML Bottle EACH EYE SCH ×2 (00:02→20:51)
[2018-09-24] MEDS: HYDROmorphone PF Inj 2 MG/ML Vial IV.PUSH PRN ×2 (04:40→11:14)
[2018-09-24] MEDS: Sodium Bicarbonate 8.4% Inj 150 MEQ in Dextrose 5% in Water Inj 1,000 ML IV.CONT SCH ×2 (04:43)
--- NOTE | 2018-09-24 09:01 | P.PNNP ---
Subjective Interval history: Tired, decreased appetite Physical Exam Vital signs: Vital Signs 09/23/18 09:40 09/23/18 12:00 09/23/18 15:55 Temperature 97.9 F 98.1 F 97.4 F L Pulse Rate 68 69 70 Respiratory Rate 18 16 18 Blood Pressure 136/71 145/78 H 158/79 H Pulse Oximetry 97 96 96 09/23/18 16:00 09/23/18 19:00 09/23/18 20:00 Temperature 98.1 F Pulse Rate 70 68 77 Respiratory Rate 20 Blood Pressure 159/81 H Pulse Oximetry 95 09/24/18 00:00 09/24/18 03:00 09/24/18 04:00 Temperature 98.2 F 97.8 F Pulse Rate 73 76 75 Respiratory Rate 18 18 Blood Pressure 151/77 H 150/84 H Pulse Oximetry 95 95 09/24/18 08:00 Temperature Pulse Rate 74 Respiratory Rate Blood Pressure Pulse Oximetry Intake & Output 09/23/18 09/24/18 09/24/18 18:59 06:59 18:59 Intake Total 1899 / 1899 1390 / 1390 Output Total 2475 / 2475 3300 / 3300 Balance -576 / -576 -1910 / -1910 Weight 82.5 kg Intake: IV 1699 / 1699 1150 / 1150 NS Inj 1,000 ML @ 125 mls/hr IV 1379 / 1379 .CONT .Q8H [facility] Rx#:[id number] Sodium Bicarbonate 8.4% Inj 150 1150 / 1150 MEQ In D5W Inj 1,000 ML @ 100 mls/hr IV.CONT .[id number] [facility] Rx# :[id number] Calcium Gluconate Inj 2 GM In 120 / 120 D5W Inj 100 ML @ 120 mls/hr IV. SIG ONCE ONE Rx#:[id number] Cubicin Inj 480 MG In NS Inj 100 / 100 100 ML @ 200 mls/hr IV.SIG Q48H [facility] Rx#:[id number] Rocephin Inj 1,000 MG In NS Inj 100 / 100 100 ML @ 200 mls/hr IV.SIG Q24H [facility] Rx#:[id number] Oral 200 / 200 240 / 240 Output: Urine 2325 / 2325 Emesis 150 / 150 Urine Amount (Catheter) 300 / 300 Suprapubic 300 / 300 Wound Drainage 3000 / 3000 Left Lower Back 850 / 850 Right Lower Back 2150 / 2150 Other: Date of Last Bowel Movement 09/21/18 # Bowel Movements 0 # Emeses 2 - Constitutional no acute distress - Routine HEENT Exam Head: Present: normocephalic Eye: Present: EOMI ENT: Present: mucous membranes moist - Routine Neck Exam Present: supple - Routine Respiratory Exam Present: decreased breath sounds - Routine Cardiovascular Exam Present: RRR - Routine Abdominal Exam Present: soft - Routine Skin Exam Present: intact - Routine Neurological Exam Present: alert, oriented X3 - Detailed Neurological Exam: Coma Scale Eye Opening: Spontaneous - Routine Psychiatric Exam Present: normal affect - Urinary Catheter Management Suprapubic Cath placed during this visit: yes Reason for continuing: Chronic Urinary Retention Insertion date: 09/20/18 Insertion time: 03:20 Assessment and Plan - Assessment (1) Acute on chronic kidney failure Code(s): N17.9 - Acute kidney failure, unspecified; N18.9 - Chronic kidney disease, unspecified Status: Acute Plan: Acute on chronic kidney disease could be due to blockage of suprapubic catheter due to clotted blood/debris etc. Patient had renal ultrasound done on 09/19/18 which showed bilateral hydronephrosis. Suprapubic catheter had a history of blockage and was changed on admission. Patient was making urine but renal function continued to decline. Patient had bilateral percutaneous nephrostomy 09/22/18. Improving UOP via nephrostomies: 850cc left nephrostomy, 2150 right nephrostomy, 300cc suprapubic total 3.3 L out, bloody fluid - however improving Continue to monitor - may need further urology evaluation if ongoing diminished left-sided drainage However creatinine remains elevated: 5.3 -> 5.4 -> 5.5 today Continue to monitor. No need for dialysis at this point Calcium replaced yesterday. Will given calcium gluconat IV ON PO calcium as well Acidosis improving, on IVFs eernC2V + 150 meq NaHCO3 @ 125cc/hour Will also add potassium replacement IV, follow mag, K levels Planning for hospice evaluation - continue to monitor. (2) Acute UTI Code(s): N39.0 - Urinary tract infection, site not specified Status: Acute Plan: Patient on Ceftriaxone. (3) Prostate cancer metastatic to bone Code(s): C61 - Malignant neoplasm of prostate; C79.51 - Secondary malignant neoplasm of bone Status: Acute Plan: As per reviewing previous documentation, the patient's and patient were concerned about getting a liver biopsy to see if the patient was a candidate for immunotherapy. Oncology consulted. Will follow up with the recommendations. - Plan follow goals of care with oncology
[2018-09-24 09:56] LABS: Hematocrit 24.7 % (39.0-51.0); Hemoglobin 8.7 gm/dL (13.0-17.0); Mean Corpuscular HGB Conc 35.3 % (32.0-36.0); Mean Corpuscular Hemoglobin 32.4 pg (27.0-34.0); Platelet Count 339 th/mm3 (150-450); Red Blood Count 2.68 mil/mm3 (4.50-5.90)
[2018-09-24] MEDS ORDERED: Calcium Gluconate Inj 2 GM in Dextrose 5% in Water Inj 100 ML IV.SIG ONE ×2 (10:00)
[2018-09-24] MEDS: Calcium Carbonate 500 MG Tablet PO SCH ×3 (10:08→20:58)
[2018-09-24] MEDS: buPROPion 150 MG 12 HR Tablet PO SCH (10:09)
[2018-09-24] MEDS: Tolterodine Tartrate LA 4 MG Capsule PO SCH (10:10)
[2018-09-24 10:17] LABS: Albumin 1.9 g/dL (3.4-5.0); Alkaline Phosphatase 114 U/L (45-117); Anion Gap 15 meq/L (5-15); Aspartate Aminotransferase 15 U/L (15-37); Blood Urea Nitrogen 61 mg/dL (7-18); Calcium 5.8 mg/dL (8.5-10.1); Carbon Dioxide 20.3 meq/L (21.0-32.0); Chloride 105 meq/L (98-107); Glomerular Filtration Rate 10 mL/min (>89); Glucose,Random 118 mg/dL (74-106); Magnesium 2.2 mg/dL (1.5-2.5); Phosphorus 4.7 mg/dL (2.5-4.9); Potassium 3.3 meq/L (3.5-5.1); Sodium 140 meq/L (136-145); Total Protein 6.6 g/dL (6.4-8.2)
--- NOTE | 2018-09-24 10:33 | P.PN ---
Subjective Interval history: Nursing reports the patient did have some substantial nausea, had to be resorted to IV Compazine. Reports much more output in the nephrostomy tubes then the suprapubic catheter. is at the bedside, says she wants to let the Compazine give it a shot for switching over to Phenergan. Physical Exam Vital signs: Vital Signs 09/23/18 12:00 09/23/18 15:55 09/23/18 16:00 Temperature 98.1 F 97.4 F L Pulse Rate 69 70 70 Respiratory Rate 16 18 Blood Pressure 145/78 H 158/79 H Pulse Oximetry 96 96 09/23/18 19:00 09/23/18 20:00 09/24/18 00:00 Temperature 98.1 F 98.2 F Pulse Rate 68 77 73 Respiratory Rate 20 18 Blood Pressure 159/81 H 151/77 H Pulse Oximetry 95 95 09/24/18 03:00 09/24/18 04:00 09/24/18 08:00 Temperature 97.8 F 98.1 F Pulse Rate 76 75 77 Respiratory Rate 18 16 Blood Pressure 150/84 H 158/80 H Pulse Oximetry 95 94 L Intake & Output 09/23/18 09/24/18 09/24/18 18:59 06:59 18:59 Intake Total 1899 / 1899 1390 / 1390 Output Total 2475 / 2475 3300 / 3300 Balance -576 / -576 -1910 / -1910 Weight 82.5 kg Intake: IV 1699 / 1699 1150 / 1150 NS Inj 1,000 ML @ 125 mls/hr IV 1379 / 1379 .CONT .Q8H [facility] Rx#:[id number] Sodium Bicarbonate 8.4% Inj 150 1150 / 1150 MEQ In D5W Inj 1,000 ML @ 100 mls/hr IV.CONT .[id number] [facility] Rx# :[id number] Calcium Gluconate Inj 2 GM In 120 / 120 D5W Inj 100 ML @ 120 mls/hr IV. SIG ONCE ONE Rx#:[id number] Cubicin Inj 480 MG In NS Inj 100 / 100 100 ML @ 200 mls/hr IV.SIG Q48H [facility] Rx#:[id number] Rocephin Inj 1,000 MG In NS Inj 100 / 100 100 ML @ 200 mls/hr IV.SIG Q24H [facility] Rx#:[id number] Oral 200 / 200 240 / 240 Output: Urine 2325 / 2325 Emesis 150 / 150 Urine Amount (Catheter) 300 / 300 Suprapubic 300 / 300 Wound Drainage 3000 / 3000 Left Lower Back 850 / 850 Right Lower Back 2150 / 2150 Other: Date of Last Bowel Movement 09/21/18 # Bowel Movements 0 # Emeses 2 Narrative: Sleeping Heart sounds regular rate rhythm, no murmurs Clear lungs bilaterally, unlabored breathing Nephrostomy tubes in place - Urinary Catheter Management Suprapubic Cath placed during this visit: yes Reason for continuing: Chronic Urinary Retention Insertion date: 09/20/18 Insertion time: 03:20 Results - Labs CBC & Chem 7: 09/24/18 09:09 09/24/18 09:09 Laboratory Results - last 24 hr 09/23/18 09/24/18 09/24/18 10:25 09:09 09:09 WBC 9.1 10.0 RBC 2.69 L 2.68 L Hgb 8.6 L 8.7 L Hct 25.0 L 24.7 L MCV 92.8 92.0 MCH 32.1 32.4 MCHC 34.6 35.3 RDW 19.0 H 19.0 H Plt Count 293 339 MPV 6.6 L 7.0 Sodium 140 Potassium 3.3 L Chloride 105 Carbon Dioxide 20.3 L Anion Gap 15 BUN 61 H Creatinine 5.58 H Estimated GFR 10 L Random Glucose 118 H Calcium 5.8 L* Prot Corrected Calcium 6.0 L* Phosphorus 4.7 Magnesium 2.2 Total Bilirubin 0.3 AST 15 ALT Less than 6 L Alkaline Phosphatase 114 Total Protein 6.6 Albumin 1.9 L Microbiology 09/22/18 19:11 Blood - Peripheral Aerobic Blood Culture - Preliminary gram positive cocci 09/22/18 19:11 Blood - Peripheral Anaerobic Blood Culture - Preliminary No growth in 1 day 09/22/18 19:06 Blood - Peripheral Aerobic Blood Culture - Preliminary gram positive cocci 09/22/18 19:06 Blood - Peripheral Anaerobic Blood Culture - Preliminary No growth in 1 day 09/19/18 18:15 Blood - Peripheral Aerobic Blood Culture - Preliminary No growth in 4 days 09/19/18 18:15 Blood - Peripheral Anaerobic Blood Culture - Final S. aureus MRSA 09/19/18 18:09 Blood - Peripheral Aerobic Blood Culture - Preliminary No growth in 4 days 09/19/18 18:09 Blood - Peripheral Anaerobic Blood Culture - Preliminary No growth in 4 days Assessment and Plan - Plan This patient is a 73-year-old male with a diagnosis of metastatic prostate cancer, urinary obstruction with a suprapubic catheter. The patient presents the emergency department with a 1 day history of weakness, chills, fever. In the emergency department the patient was found to have a urinary tract. Status post bilateral percutaneous nephroureteral stent placement. Severe sepsis secondary to catheter associated urinary tract infection present on admission -Much improved since admission MRSA bacteremia likely secondary to UTI cystitis ID following, daptomycin for now, -repeat cultures showing 1 of 2 gram P cocci - ? contaminant Still Worsening renal function Hydronephrosis Nephrology following, trend renal function Status post bilateral percutaneous nephroureteral stent placements Secondary hyperparathyroidism 2/2 Renal disease Hypocalcemia -IV fluids Nephrology following -Continue p.o. Os-Karl Metastatic prostate cancer -Oncology following, anticipate possible CT guided bx of liver lesions -hospice consulted by oncology; pending meeting today Anemia OCD - s/p transfusions, stable, oncology following Heparin for DVT prophylaxis.
[2018-09-24] MEDS: Gentamicin 0.1% Cream 15 GM Cream TOPICAL SCH (14:07)
[2018-09-24] MEDS: Collagenase Oint 30 GM Tube TOPICAL SCH (14:07)
[2018-09-24] MEDS: Potassium Chlor 20 mEq Premix 20 MEQ/100 ML PIGGYBACK IV.SIG SCH ×2 (15:39→20:48)
[2018-09-24] MEDS: Sodium Bicarbonate 8.4% Inj 150 MEQ in Dextrose 5% in Water Inj 850 ML IV.CONT SCH ×4 (20:30→22:10)
[2018-09-25] MEDS: HYDROmorphone PF Inj 2 MG/ML Vial IV.PUSH PRN ×4 (00:27→21:43)
[2018-09-25] MEDS: Sodium Bicarbonate 8.4% Inj 150 MEQ in Dextrose 5% in Water Inj 850 ML IV.CONT SCH ×6 (06:34→22:47)
[2018-09-25 07:36] LABS: Hematocrit 26.1 % (39.0-51.0); Hemoglobin 9.2 gm/dL (13.0-17.0); Mean Corpuscular HGB Conc 35.4 % (32.0-36.0); Mean Corpuscular Hemoglobin 32.1 pg (27.0-34.0); Mean Corpuscular Volume 90.8 fL (80.0-100.0); Mean Platelet Volume 7.1 fL (7.0-11.0); Platelet Count 338 th/mm3 (150-450); Red Blood Count 2.87 mil/mm3 (4.50-5.90); Red Cell Distribution Width 18.4 % (11.6-17.2); White Blood Count 10.5 th/mm3 (4.0-11.0)
[2018-09-25 08:04] LABS: Alkaline Phosphatase 119 U/L (45-117); Anion Gap 14 meq/L (5-15); Aspartate Aminotransferase 16 U/L (15-37); Blood Urea Nitrogen 57 mg/dL (7-18); Carbon Dioxide 23.9 meq/L (21.0-32.0); Chloride 100 meq/L (98-107); Glomerular Filtration Rate 10 mL/min (>89); Glucose,Random 129 mg/dL (74-106); Magnesium 2.2 mg/dL (1.5-2.5); Phosphorus 3.9 mg/dL (2.5-4.9); Sodium 138 meq/L (136-145); Total Protein 6.9 g/dL (6.4-8.2)
[2018-09-25 08:16] LABS: Potassium 2.8 meq/L (3.5-5.1)
[2018-09-25] MEDS: Calcium Carbonate 500 MG Tablet PO SCH ×2 (08:37→22:47)
[2018-09-25] MEDS: Tolterodine Tartrate LA 4 MG Capsule PO SCH (08:39)
[2018-09-25] MEDS: buPROPion 150 MG 12 HR Tablet PO SCH (08:39)
--- NOTE | 2018-09-25 09:07 | P.DS ---
Date of admission: 09/19/18 20:09 Primary care physician: Marcelo Cote MD Anticipated date of discharge: 09/26/18 Brief History from admission: 73-year-old male with a history of metastatic prostate cancer, urinary obstruction with suprapubic catheter, who presents to the ER with a 1 day history of progressively worsening weakness, bilateral tremors. says he began to get weak last night, and this morning was barely able to walk due to weakness and unsteadiness. Patient denies any chest pain, shortness of breath, nausea, vomiting, constipation, diarrhea. Patient reportedly has chronic fevers which have continued. Patient reports chronic low back and groin pain which continues unchanged. Patient update on day of discharge: The patient met with palliative care and hospice. The patient and family were agreeable with discharge home with hospice following. The patient will complete oral antibiotics at home. DS: Diagnosis - Discharge Diagnosis (1) Gross hematuria Status: Acute (2) Acute on chronic kidney failure Status: Acute (3) Fever Status: Acute (4) Pain Status: Acute (5) Nausea & vomiting Status: Acute (6) Prostate cancer Status: Acute DS: Medications - Discharge Medications Prescriptions: clindamycin HCl 450 mg PO BID 10 Days #60 cap diazepam [Valium] 5 mg PO DAILY PRN #3 tab PRN Reason: Anxiety fentanyl [Duragesic] 1 patch TRANSDERMAL Q3D #1 ea lorazepam 0.5 mg PO Q8H PRN #12 tab PRN Reason: Anxiety oxycodone-acetaminophen 1 tab PO Q6H #12 tab DS: Summary Hospital Course: This patient is a 73-year-old male with a history of metastatic prostate cancer and urinary obstruction with a suprapubic catheter in place who presented to the emergency department with a one day history of weakness, chills and fever. In the emergency department the patient was found to have a urinary tract infection and acute renal failure. He was started on IV antibiotics. The suprapubic catheter was changed. Nephrology and urology were consulted. The pt was noted to have hydronephrosis and is status post bilateral percutaneous nephroureteral stent placement. The pt's electrolytes were replenished as needed. The pt was found to have MRSA bacteremia. Infectious disease was consulted and managed antibiotics. Oncology was consulted. The pt received two units of red blood cells. Eventually hospice was consulted. The pt and his family decided to be discharged home with hospice services. The pt will continue PO clindamycin for 10 days per infectious disease. He will receive pain medications and anxiety medications as needed. E-FORCSE was checked prior to prescribing medications. The pt's suprapubic catheter was removed. Case management was consulted. - Time Spent with Patient Total time spent providing and/or coordinating discharge services: Greater than 30 minutes - Quality: VTE Deep Vein Thrombosis/Pulmonary Embolism Present on Admission: No Exam Vital signs: Vital Signs 09/24/18 12:00 09/24/18 16:00 09/24/18 18:06 Temperature 98.6 F 98.4 F Pulse Rate 75 67 71 Respiratory Rate 16 16 Blood Pressure 145/71 H 152/84 H Pulse Oximetry 95 95 09/24/18 19:55 09/24/18 20:45 09/25/18 00:06 Temperature 97.9 F Pulse Rate 68 74 70 Respiratory Rate 18 Blood Pressure 163/81 H Pulse Oximetry 95 09/25/18 00:17 09/25/18 04:00 09/25/18 04:46 Temperature 97.7 F 98.8 F Pulse Rate 67 64 73 Respiratory Rate 18 18 Blood Pressure 159/82 H 164/87 H Pulse Oximetry 95 96 09/25/18 08:00 Temperature 97.8 F Pulse Rate 71 Respiratory Rate 18 Blood Pressure 163/88 H Pulse Oximetry 95 Intake & Output 09/24/18 09/25/18 09/25/18 18:59 06:59 18:59 Intake Total 750 / 750 3130 / 3130 Output Total 3625 / 3625 3575 / 3575 325 / 325 Balance -2875 / -2875 -445 / -445 -325 / -325 Weight 81.5 kg Intake: IV 2530 / 2530 Sodium Bicarbonate 8.4% Inj 150 1000 / 1000 MEQ In D5W Inj 850 ML @ 125 mls/hr IV.CONT .Q8H [facility] Rx#: [id number] Calcium Gluconate Inj 2 GM In 120 / 120 D5W Inj 100 ML @ 120 mls/hr IV. SIG ONCE ONE Rx#:[id number] KCl 20 mEq Premix Inj 20 meq In 160 / 160 100 ml @ 50 mls/hr IV.SIG Q2H [facility] Rx#:[id number] Rocephin Inj 1,000 MG In NS Inj 100 / 100 100 ML @ 200 mls/hr IV.SIG Q24H [facility] Rx#:[id number] Oral 750 / 750 600 / 600 Output: Urine Amount (Catheter) 50 / 50 200 / 200 Suprapubic 50 / 50 200 / 200 Urine Amount (Stoma) 3575 / 3575 3375 / 3375 325 / 325 Nephrostomy Tube Left 600 / 600 625 / 625 Nephrostomy Tube Right 2975 / 2975 2750 / 2750 325 / 325 Other: Date of Last Bowel Movement 09/21/18 Narrative: GENERAL: Chronically ill-appearing male patient, in no acute distress. SKIN: Warm and dry. HEAD: Normocephalic. EYES: No scleral icterus. No injection or drainage. NECK: Supple, trachea midline. CARDIOVASCULAR: Regular rate and rhythm without murmurs. RESPIRATORY: Breath sounds equal bilaterally. No accessory muscle use. GASTROINTESTINAL: Abdomen soft, non-tender, nondistended. Bilateral posterior nephrostomy tubes, no swelling or erythema noted. Draining serosanguineous clear fluid. Suprapubic Engel catheter in place, draining sanguinous blood that appears clotted in tube, none in drainage bag. EXTREMITIES: No cyanosis, or edema. MUSCULOSKELETAL: Adequate muscle tone. NEUROLOGICAL: No obvious focal deficit. Awake, alert, and oriented x3. PSYCHIATRIC: Appropriate mood and affect; insight and judgment normal. Results Procedures completed during hospitalization: See hospital course Labs on day of discharge: Labs from last 24 hours 09/25/18 09/25/18 09/24/18 06:59 06:59 09:09 WBC 10.5 RBC 2.87 L Hgb 9.2 L Hct 26.1 L MCV 90.8 MCH 32.1 MCHC 35.4 RDW 18.4 H Plt Count 338 MPV 7.1 Sodium 138 140 Potassium 2.8 L* 3.3 L Chloride 100 105 Carbon Dioxide 23.9 20.3 L Anion Gap 14 15 BUN 57 H 61 H Creatinine 5.56 H 5.58 H Estimated GFR 10 L 10 L Random Glucose 129 H 118 H Calcium 6.0 L* 5.8 L* Prot Corrected Calcium 6.1 L* 6.0 L* Phosphorus 3.9 4.7 Magnesium 2.2 2.2 Total Bilirubin 0.4 0.3 AST 16 15 ALT Less than 6 L Less than 6 L Alkaline Phosphatase 119 H 114 Total Protein 6.9 6.6 Albumin 2.0 L 1.9 L 09/24/18 09:09 WBC 10.0 RBC 2.68 L Hgb 8.7 L Hct 24.7 L MCV 92.0 MCH 32.4 MCHC 35.3 RDW 19.0 H Plt Count 339 MPV 7.0 Sodium Potassium Chloride Carbon Dioxide Anion Gap BUN Creatinine Estimated GFR Random Glucose Calcium Prot Corrected Calcium Phosphorus Magnesium Total Bilirubin AST ALT Alkaline Phosphatase Total Protein Albumin Preliminary micro results at discharge 09/22/18 19:11 Aerobic Blood Culture - Preliminary Blood - Peripheral gram positive cocci Anaerobic Blood Culture - Preliminary No growth in 2 days 09/22/18 19:06 Aerobic Blood Culture - Preliminary Blood - Peripheral gram positive cocci Anaerobic Blood Culture - Preliminary No growth in 2 days - Impressions ITS Impressions Abdomen/Bladder Ultrasound 09/19/18 00:00 CONCLUSION: Moderate bilateral hydronephrosis. Drainage Catheter Insertion 09/22/18 00:00 CONCLUSION: 1. Uncomplicated nephroureteral stent placement as above. Discharge Plan - Discharge Disposition Patient Disposition: 50 Hospice/Home - Discharge Condition Condition: Serious - Discharge Order Discharge Orders: Discharge Order (Routine); Ordered 09/26/18 Ordered By: Manav Hays - Discharge Details Anticipated Discharge Date: 09/26/18 - Physicians Team Primary Care Provider: Marcelo Cote Attending Provider: Manav Hays Other Providers: Miguel Valiente MD ; Junior Gant MD ; Alfredito Tolbert MD ; Juan Ortega MD ; Derek Gamez MD ; Aguila Goyal MD ; Ally Corbett MD
--- NOTE | 2018-09-25 10:07 | P.PNNP ---
Subjective Interval history: Patient was resting in bed, no distress. Patient stated he is being discharged to Hospice later today. Patient's K is 2.8, he had IV potassium replacement, 2 bags 09/24. Patient's Ca is 6.0, patient had IV Calcium Gluconate 09/24 along with PO Oscal 09/25. Patient had bilateral percutaneous nephrostomy 09/22, diminished left-sided drainage, right side had no bloody drainage. Urine output has improved but creatinine remains elevated: 5.56. Physical Exam Vital signs: Vital Signs 09/24/18 12:00 09/24/18 16:00 09/24/18 18:06 Temperature 98.6 F 98.4 F Pulse Rate 75 67 71 Respiratory Rate 16 16 Blood Pressure 145/71 H 152/84 H Pulse Oximetry 95 95 09/24/18 19:55 09/24/18 20:45 09/25/18 00:06 Temperature 97.9 F Pulse Rate 68 74 70 Respiratory Rate 18 Blood Pressure 163/81 H Pulse Oximetry 95 09/25/18 00:17 09/25/18 04:00 09/25/18 04:46 Temperature 97.7 F 98.8 F Pulse Rate 67 64 73 Respiratory Rate 18 18 Blood Pressure 159/82 H 164/87 H Pulse Oximetry 95 96 09/25/18 08:00 Temperature 97.8 F Pulse Rate 71 Respiratory Rate 18 Blood Pressure 163/88 H Pulse Oximetry 95 Intake & Output 09/24/18 09/25/18 09/25/18 18:59 06:59 18:59 Intake Total 750 / 750 3130 / 3130 Output Total 3625 / 3625 3575 / 3575 325 / 325 Balance -2875 / -2875 -445 / -445 -325 / -325 Weight 81.5 kg Intake: IV 2530 / 2530 Sodium Bicarbonate 8.4% Inj 150 1000 / 1000 MEQ In D5W Inj 850 ML @ 125 mls/hr IV.CONT .Q8H [facility] Rx#: [id number] Calcium Gluconate Inj 2 GM In 120 / 120 D5W Inj 100 ML @ 120 mls/hr IV. SIG ONCE ONE Rx#:[id number] KCl 20 mEq Premix Inj 20 meq In 160 / 160 100 ml @ 50 mls/hr IV.SIG Q2H [facility] Rx#:[id number] Rocephin Inj 1,000 MG In NS Inj 100 / 100 100 ML @ 200 mls/hr IV.SIG Q24H [facility] Rx#:[id number] Oral 750 / 750 600 / 600 Output: Urine Amount (Catheter) 50 / 50 200 / 200 Suprapubic 50 / 50 200 / 200 Urine Amount (Stoma) 3575 / 3575 3375 / 3375 325 / 325 Nephrostomy Tube Left 600 / 600 625 / 625 Nephrostomy Tube Right 2975 / 2975 2750 / 2750 325 / 325 Other: Date of Last Bowel Movement 09/21/18 09/22/18 - Constitutional no acute distress - Routine HEENT Exam Head: Present: normocephalic Eye: Present: EOMI, PERRL ENT: Present: mucous membranes moist - Routine Neck Exam Present: trachea midline. Absent: JVD, tracheal deviation - Routine Respiratory Exam Present: CTA bilaterally. Absent: accessory muscle use, respiratory distress - Routine Cardiovascular Exam Present: RRR. Absent: murmur, gallop, rubs - Routine Abdominal Exam Present: soft, normoactive bowel sounds - Routine Extremities Exam Absent: cyanosis, edema - Routine Skin Exam Present: warm - Routine Neurological Exam Present: alert - Detailed Neurological Exam: Coma Scale Eye Opening: Spontaneous Verbal Response: Oriented - Routine Psychiatric Exam Present: normal affect - Urinary Catheter Management Suprapubic Cath placed during this visit: yes Reason for continuing: Not indwelling catheter Insertion date: 09/20/18 Insertion time: 03:20 Assessment and Plan - Assessment (1) Acute on chronic kidney failure Code(s): N17.9 - Acute kidney failure, unspecified; N18.9 - Chronic kidney disease, unspecified Status: Acute Plan: Acute on chronic kidney disease could be due to blockage of suprapubic catheter due to clotted blood/debris etc. Patient had renal ultrasound done on 09/19/18 which showed bilateral hydronephrosis. Suprapubic catheter had a history of blockage and was changed on admission. Patient was making urine but renal function continued to decline. Patient had bilateral percutaneous nephrostomy 09/22/18. Improving UOP via nephrostomies: Continue to monitor - may need further urology evaluation if ongoing diminished left-sided drainage. However creatinine remains elevated: 5.56 Continue to monitor. Calcium replaced yesterday. Was given calcium gluconat IV. ON PO calcium as well. Patient's K 2.8. patient had potassium replacement IV, 2 bags 09/24. Patient planning for discharge to Hospice later today. (2) Acute UTI Code(s): N39.0 - Urinary tract infection, site not specified Status: Acute Plan: Patient on Ceftriaxone. (3) Prostate cancer metastatic to bone Code(s): C61 - Malignant neoplasm of prostate; C79.51 - Secondary malignant neoplasm of bone Status: Acute Plan: As per reviewing previous documentation, the patient's and patient were concerned about getting a liver biopsy to see if the patient was a candidate for immunotherapy. Oncology consulted. Patient decided to consult Hospice. - Plan follow goals of care with oncology
--- NOTE | 2018-09-25 11:53 | P.PNID ---
Subjective Remarks: Patient received Dilaudid for pain this morning. Appears somewhat drowsy. at bedside. Afebrile. White blood cell count normal. Repeat blood culture from 09/22 has MRSA Patient's met with hospice and they have plans to have him transferred to hospice care. This is a 73-year-old white male who has known history of metastatic prostate cancer. The patient presented to the emergency department on 09/19/2018 with weakness. The patient's noted that he became very weak on the day prior to presenting to the emergency department. It is also reported that he had cloudiness of the urine from the suprapubic catheter. The patient has a suprapubic catheter in place. His temperature was 100.6 degrees in the emergency department and white count was mildly elevated at 11.8. He also has acute kidney disease. Urinalysis was performed and it showed many white blood cell clumps and a urine culture was taken and it has MRSA. Blood culture also has MRSA in 1 of 4 bottles. Review of the prior cultures from the wound of the back shows E. coli, MRSA, and Shaniqua tropicalis on 09/01/2018. Past Medical History: PAST MEDICAL HISTORY: Hepatitis B, hypertension, kidney disease, metastatic prostate cancer with metastasis to bone and now suspected liver, chronic suprapubic catheter, history of cholecystectomy, history of hip replacement, history of vasectomy. Allergies/Adverse Reactions: Allergies morphine Allergy (Severe, Verified 08/19/18 11:17) MORPHINE ALLERGY ADDED 12/19/07 @1500 - N/V Objective Vital Signs 09/24/18 12:00 09/24/18 16:00 09/24/18 18:06 Temperature 98.6 F 98.4 F Pulse Rate 75 67 71 Respiratory Rate 16 16 Blood Pressure 145/71 H 152/84 H Pulse Oximetry 95 95 09/24/18 19:55 09/24/18 20:45 09/25/18 00:06 Temperature 97.9 F Pulse Rate 68 74 70 Respiratory Rate 18 Blood Pressure 163/81 H Pulse Oximetry 95 09/25/18 00:17 09/25/18 04:00 09/25/18 04:46 Temperature 97.7 F 98.8 F Pulse Rate 67 64 73 Respiratory Rate 18 18 Blood Pressure 159/82 H 164/87 H Pulse Oximetry 95 96 09/25/18 08:00 Temperature 97.8 F Pulse Rate 71 Respiratory Rate 18 Blood Pressure 163/88 H Pulse Oximetry 95 Intake & Output 09/24/18 09/25/18 09/25/18 18:59 06:59 18:59 Intake Total 750 / 750 3130 / 3130 Output Total 3625 / 3625 3575 / 3575 325 / 325 Balance -2875 / -2875 -445 / -445 -325 / -325 Weight 81.5 kg Intake: IV 2530 / 2530 Sodium Bicarbonate 8.4% Inj 150 1000 / 1000 MEQ In D5W Inj 850 ML @ 125 mls/hr IV.CONT .Q8H [facility] Rx#: [id number] Calcium Gluconate Inj 2 GM In 120 / 120 D5W Inj 100 ML @ 120 mls/hr IV. SIG ONCE ONE Rx#:[id number] KCl 20 mEq Premix Inj 20 meq In 160 / 160 100 ml @ 50 mls/hr IV.SIG Q2H [facility] Rx#:[id number] Rocephin Inj 1,000 MG In NS Inj 100 / 100 100 ML @ 200 mls/hr IV.SIG Q24H [facility] Rx#:[id number] Oral 750 / 750 600 / 600 Output: Urine Amount (Catheter) 50 / 50 200 / 200 Suprapubic 50 / 50 200 / 200 Urine Amount (Stoma) 3575 / 3575 3375 / 3375 325 / 325 Nephrostomy Tube Left 600 / 600 625 / 625 Nephrostomy Tube Right 2975 / 2975 2750 / 2750 325 / 325 Other: Date of Last Bowel Movement 09/21/18 09/22/18 09/25/18 10:18 Blood - Peripheral Aerobic Blood Culture - Pending 09/25/18 10:18 Blood - Peripheral Anaerobic Blood Culture - Pending 09/25/18 10:13 Blood - Peripheral Aerobic Blood Culture - Pending 09/25/18 10:13 Blood - Peripheral Anaerobic Blood Culture - Pending 09/22/18 19:11 Blood - Peripheral Aerobic Blood Culture - Final S. aureus MRSA 09/22/18 19:11 Blood - Peripheral Anaerobic Blood Culture - Preliminary No growth in 3 days 09/22/18 19:06 Blood - Peripheral Aerobic Blood Culture - Final S. aureus MRSA 09/22/18 19:06 Blood - Peripheral Anaerobic Blood Culture - Preliminary No growth in 3 days 09/19/18 18:09 Blood - Peripheral Aerobic Blood Culture - Final No growth in 5 days 09/19/18 18:09 Blood - Peripheral Anaerobic Blood Culture - Final No growth in 5 days 09/19/18 18:15 Blood - Peripheral Aerobic Blood Culture - Final No growth in 5 days 09/19/18 18:15 Blood - Peripheral Anaerobic Blood Culture - Final S. aureus MRSA Lab - Hematology Results 09/24/18 09/25/18 09:09 06:59 WBC 10.0 10.5 RBC 2.68 L 2.87 L Hgb 8.7 L 9.2 L Hct 24.7 L 26.1 L MCV 92.0 90.8 MCH 32.4 32.1 MCHC 35.3 35.4 RDW 19.0 H 18.4 H Plt Count 339 338 MPV 7.0 7.1 Lab - Chemistry Results 09/24/18 09/25/18 09:09 06:59 Sodium 140 138 Potassium 3.3 L 2.8 L* Chloride 105 100 Carbon Dioxide 20.3 L 23.9 Anion Gap 15 14 BUN 61 H 57 H Creatinine 5.58 H 5.56 H Estimated GFR 10 L 10 L Random Glucose 118 H 129 H Calcium 5.8 L* 6.0 L* Prot Corrected Calcium 6.0 L* 6.1 L* Phosphorus 4.7 3.9 Magnesium 2.2 2.2 Total Bilirubin 0.3 0.4 AST 15 16 ALT Less than 6 L Less than 6 L Alkaline Phosphatase 114 119 H Total Protein 6.6 6.9 Albumin 1.9 L 2.0 L Imaging: ITS Impressions Abdomen/Bladder Ultrasound 09/19/18 00:00 CONCLUSION: Moderate bilateral hydronephrosis. Drainage Catheter Insertion 09/22/18 00:00 CONCLUSION: 1. Uncomplicated nephroureteral stent placement as above. Physical Exam: PHYSICAL EXAMINATION: GENERAL: Patient in no acute distress. Appears drowsy. HEENT: Head is atraumatic. Extraocular movements are grossly intact. Pupils reactive to light. No icterus. Oropharynx moist mucosa without lesions. NECK: Supple without adenopathy. LUNGS: Clear breath sounds. HEART: Regular S1 and S2. No murmurs, rubs or gallops. ABDOMEN: Bowel sounds present, soft. Bilateral nephrostomy tube in place. Functioning. SKIN: No rash. NEUROLOGIC: Nonfocal. PSYCHIATRIC: Calm and cooperative. Assessment and Plan - Plan IMPRESSION: 1. Bacteremia due to methicillin-resistant Staphylococcus aureus originating from the urine. Patient has persistently positive blood cultures. 2. Urinary tract infection due to MRSA. Bilateral hydronephrosis. Both nephrostomy tubes x2. 3. Metastatic prostate cancer. 4. Acute kidney disease. RECOMMENDATIONS: 1. Continue Daptomycin. 2. Continue ceftriaxone. 3. Repeat blood cultures today. 4. Monitor clinical status. I have discussed the repeat positive blood culture with the patient's . If the patient goes to hospice and antibiotics are discontinued there is a very high likelihood that he will deteriorated from infection standpoint. The plan of treatment is to give antibiotics directed at treating the MRSA Intravenously because it is in the bloodstream and there is persistent positive culture. If he goes to hospice the antibiotics will need to be discontinued. The has notified me that She would prefer he be treated with IV antibiotics to get the infection under control before being sent to hospice. Blood culture being repeated today should give an indication whether this infection is getting under control If the blood culture is negative at that point it is prudent to complete the course of treatment for the sepsis with 10 days of antibiotics from the date the negative blood culture was drawn. If the blood cultures remain positive, hospice may be entertained since it is less likely that he will recover from blood infection without a very prolonged course of the IV antibiotics. 20 minutes spent discussing the above with the patient's . She will be meeting with hospice later today to make decisions.
--- NOTE | 2018-09-25 12:40 | P.PNIM ---
Subjective Interval history: The patient complained of pain in his penis. He denied any pain at the nephrostomy tube sites. He said that he wanted to go with hospice care today. Discussed with nursing at the bedside. Physical Exam Vital signs: Vital Signs 09/24/18 16:00 09/24/18 18:06 09/24/18 19:55 Temperature 98.4 F Pulse Rate 67 71 68 Respiratory Rate 16 Blood Pressure 152/84 H Pulse Oximetry 95 09/24/18 20:45 09/25/18 00:06 09/25/18 00:17 Temperature 97.9 F 97.7 F Pulse Rate 74 70 67 Respiratory Rate 18 18 Blood Pressure 163/81 H 159/82 H Pulse Oximetry 95 95 09/25/18 04:00 09/25/18 04:46 09/25/18 08:00 Temperature 98.8 F 97.8 F Pulse Rate 64 73 67 Respiratory Rate 18 18 Blood Pressure 164/87 H 163/88 H Pulse Oximetry 96 95 Intake & Output 09/24/18 09/25/18 09/25/18 18:59 06:59 18:59 Intake Total 750 / 750 3130 / 3130 Output Total 3625 / 3625 3575 / 3575 325 / 325 Balance -2875 / -2875 -445 / -445 -325 / -325 Weight 81.5 kg Intake: IV 2530 / 2530 Sodium Bicarbonate 8.4% Inj 150 1000 / 1000 MEQ In D5W Inj 850 ML @ 125 mls/hr IV.CONT .Q8H [facility] Rx#: [id number] Calcium Gluconate Inj 2 GM In 120 / 120 D5W Inj 100 ML @ 120 mls/hr IV. SIG ONCE ONE Rx#:[id number] KCl 20 mEq Premix Inj 20 meq In 160 / 160 100 ml @ 50 mls/hr IV.SIG Q2H [facility] Rx#:[id number] Rocephin Inj 1,000 MG In NS Inj 100 / 100 100 ML @ 200 mls/hr IV.SIG Q24H [facility] Rx#:[id number] Oral 750 / 750 600 / 600 Output: Urine Amount (Catheter) 50 / 50 200 / 200 Suprapubic 50 / 50 200 / 200 Urine Amount (Stoma) 3575 / 3575 3375 / 3375 325 / 325 Nephrostomy Tube Left 600 / 600 625 / 625 Nephrostomy Tube Right 2975 / 2975 2750 / 2750 325 / 325 Other: Date of Last Bowel Movement 09/21/18 09/22/18 Narrative: GENERAL: Chronically ill-appearing male patient, in no acute distress. SKIN: Warm and dry. HEAD: Normocephalic. EYES: No scleral icterus. No injection or drainage. NECK: Supple, trachea midline. CARDIOVASCULAR: Regular rate and rhythm without murmurs. RESPIRATORY: Breath sounds equal bilaterally. No accessory muscle use. GASTROINTESTINAL: Abdomen soft, non-tender, nondistended. Bilateral posterior nephrostomy tubes, no swelling or erythema noted. Draining serosanguineous clear fluid. Suprapubic Engel catheter in place, draining sanguinous blood that appears clotted in tube. EXTREMITIES: No cyanosis, or edema. MUSCULOSKELETAL: Adequate muscle tone. NEUROLOGICAL: No obvious focal deficit. Awake, alert, and oriented x3. - Urinary Catheter Management Suprapubic Cath placed during this visit: yes Reason for continuing: Not indwelling catheter Insertion date: 09/20/18 Insertion time: 03:20 Results - Labs CBC & Chem 7: 09/25/18 06:59 09/25/18 06:59 Laboratory Results - last 24 hr 09/25/18 09/25/18 06:59 06:59 WBC 10.5 RBC 2.87 L Hgb 9.2 L Hct 26.1 L MCV 90.8 MCH 32.1 MCHC 35.4 RDW 18.4 H Plt Count 338 MPV 7.1 Sodium 138 Potassium 2.8 L* Chloride 100 Carbon Dioxide 23.9 Anion Gap 14 BUN 57 H Creatinine 5.56 H Estimated GFR 10 L Random Glucose 129 H Calcium 6.0 L* Prot Corrected Calcium 6.1 L* Phosphorus 3.9 Magnesium 2.2 Total Bilirubin 0.4 AST 16 ALT Less than 6 L Alkaline Phosphatase 119 H Total Protein 6.9 Albumin 2.0 L Microbiology 09/22/18 19:11 Blood - Peripheral Aerobic Blood Culture - Final S. aureus MRSA 09/22/18 19:11 Blood - Peripheral Anaerobic Blood Culture - Preliminary No growth in 3 days 09/22/18 19:06 Blood - Peripheral Aerobic Blood Culture - Final S. aureus MRSA 09/22/18 19:06 Blood - Peripheral Anaerobic Blood Culture - Preliminary No growth in 3 days 09/19/18 18:09 Blood - Peripheral Aerobic Blood Culture - Final No growth in 5 days 09/19/18 18:09 Blood - Peripheral Anaerobic Blood Culture - Final No growth in 5 days 09/19/18 18:15 Blood - Peripheral Aerobic Blood Culture - Final No growth in 5 days 09/19/18 18:15 Blood - Peripheral Anaerobic Blood Culture - Final S. aureus MRSA Assessment and Plan - Assessment (1) Gross hematuria Code(s): R31.0 - Gross hematuria Status: Acute (2) Acute on chronic kidney failure Code(s): N17.9 - Acute kidney failure, unspecified; N18.9 - Chronic kidney disease, unspecified Status: Acute (3) Fever Code(s): R50.9 - Fever, unspecified Status: Acute (4) Pain Code(s): R52 - Pain, unspecified Status: Acute (5) Nausea & vomiting Code(s): R11.2 - Nausea with vomiting, unspecified Status: Acute (6) Prostate cancer Code(s): C61 - Malignant neoplasm of prostate Status: Acute - Plan This patient is a 73-year-old male with a diagnosis of metastatic prostate cancer, urinary obstruction with a suprapubic catheter. The patient presents the emergency department with a 1 day history of weakness, chills, fever. In the emergency department the patient was found to have a urinary tract. Status post bilateral percutaneous nephroureteral stent placement. Severe sepsis secondary to catheter associated urinary tract infection present on admission -Much improved since admission MRSA bacteremia likely secondary to UTI cystitis ID following, daptomycin and ceftriaxone for now Still Worsening renal function Hydronephrosis Nephrology following, trend renal function Status post bilateral percutaneous nephroureteral stent placements Secondary hyperparathyroidism 2/2 Renal disease Hypocalcemia Hypokalemia -IV fluids, IV KCl Nephrology following -Continue p.o. Os-Karl Metastatic prostate cancer -Oncology following, anticipate possible CT guided bx of liver lesions -hospice consulted by oncology. Pt agreeable with hospice but would like to continue antibiotics. Reconsult palliative care. Anemia OCD - s/p transfusions, stable, oncology following Heparin for DVT prophylaxis.
[2018-09-25] MEDS ORDERED: Potassium Chlor 20 mEq Premix 20 MEQ/100 ML PIGGYBACK IV.SIG ONE (13:00)
--- NOTE | 2018-09-25 14:07 | P.PNPAL ---
Reason for Visit Reason for visit: a. To assist with evaluation and management of symptoms including: Pain, nausea b. To assist medical decision maker(s) with: better understanding of current medical conditions; weighing benefits/burdens of medical treatment options; making medical treatment decisions. Subjective Subjective/Interval History: Palliative care reconsulted today to assist with clarification of goals of medical treatment. Of note, palliative already following pt, seen today in follow up. Palliative initially following to assist with pain recommendations, pain well controlled for the most part last week. d/w hospice support specialist, pt initially planned for hospice enrollment for metastatic prostate cancer, with plans for care center placement initially for pain, and then hoped to transition home with hospice services. ID following, pt currently receiving IV antibiotics for MRSA positive cultures, and discussed with patient and that pending repeat blood culture if negative would recommend completing course for another 10 days to improve outcomes. On the other hand cultures continue to be positive might consider hospice and discontinuation of antibiotics as it would then be less likely that he would recover even with antibiotics. Repeat blood cultures sent today, pending. Potassium continues to down trend 2.8, yesterday 3.3. Repletion per medical attending. BUN and creatinine remain elevated 57/5.56. GFR 10. Bilateral nephrostomy is in place since . Patient seen in room present. Dual visit with Baltazar August APRN. Patient initially sleeping though arouses easily. He appears fatigued, very quiet and withdrawn as compared to my interactions with him about a month or so ago. He is oriented and appropriate. Explore with patient and current treatments, treatment goals. Patient endorses that after meeting with infectious disease earlier they understand it is possible that MRSA in the blood stream could be treated if having adequate response they wish to await additional blood cultures and continue IV antibiotics in the meantime is not having adequate response been they are amenable to stopping IV antibiotics and transitioning to hospice which was their initial plan this past weekend at this point though they would want to afford him treatment for infection if it is treatable. Once treatment course completed or if treatment is not adequate, they would want to transition to hospice. Patient continuing to have pain to his back, as well as nephrostomy sites, as well as his scrotum. He endorses pain to scrotum, testicular region as sharp, severe, intermittent and sporadic. Does not seem to be precipitated/predictable based on any activity. He endorses in general fairly well controlled with prns, though also tries to wait to take them until he absolutely needs. Endorses good control with IV Dilaudid as well as Percocet though in general fairly painful throughout the day. Review with him potential options for better pain control, continuing with prns , versus increase in long-acting fentanyl patch--this was started August 11. Patient and amenable to increasing fentanyl patch with hopes of better overall pain control throughout the day and less "spikes" in the pain. Patient denies dyspnea. Patient reports episodic nausea though no emesis. Poor appetite, poor intake. Somewhat relieved by PRN Compazine. d/w primary nurse. Advance Directives Health Care Surrogate Name and Number: Luba Queen, Documented care wishes:: The patient has a living will that states in the presence of a terminal condition, end-state condition, or persistent vegetative state he wishes for life-prolonging procedures be withheld and withdrawn including but not limited to surgery, antibiotics, CPR, and artificially administered feeding and IVF. Objective Vital Signs: Vital Signs 09/24/18 16:00 09/24/18 18:06 09/24/18 19:55 Temperature 98.4 F Pulse Rate 67 71 68 Respiratory Rate 16 Blood Pressure 152/84 H Pulse Oximetry 95 09/24/18 20:45 09/25/18 00:06 09/25/18 00:17 Temperature 97.9 F 97.7 F Pulse Rate 74 70 67 Respiratory Rate 18 18 Blood Pressure 163/81 H 159/82 H Pulse Oximetry 95 95 09/25/18 04:00 09/25/18 04:46 09/25/18 08:00 Temperature 98.8 F 97.8 F Pulse Rate 64 73 67 Respiratory Rate 18 18 Blood Pressure 164/87 H 163/88 H Pulse Oximetry 96 95 09/25/18 13:09 Temperature 97.9 F Pulse Rate 67 Respiratory Rate 18 Blood Pressure 147/79 H Pulse Oximetry 95 Intake & Output 09/24/18 09/25/18 09/25/18 18:59 06:59 18:59 Intake Total 750 / 750 3130 / 3130 Output Total 3625 / 3625 3575 / 3575 325 / 325 Balance -2875 / -2875 -445 / -445 -325 / -325 Weight 81.5 kg Intake: IV 2530 / 2530 Sodium Bicarbonate 8.4% Inj 150 1000 / 1000 MEQ In D5W Inj 850 ML @ 125 mls/hr IV.CONT .Q8H [facility] Rx#: [id number] Calcium Gluconate Inj 2 GM In 120 / 120 D5W Inj 100 ML @ 120 mls/hr IV. SIG ONCE ONE Rx#:[id number] KCl 20 mEq Premix Inj 20 meq In 160 / 160 100 ml @ 50 mls/hr IV.SIG Q2H [facility] Rx#:[id number] Rocephin Inj 1,000 MG In NS Inj 100 / 100 100 ML @ 200 mls/hr IV.SIG Q24H [facility] Rx#:[id number] Oral 750 / 750 600 / 600 Output: Urine Amount (Catheter) 50 / 50 200 / 200 Suprapubic 50 / 50 200 / 200 Urine Amount (Stoma) 3575 / 3575 3375 / 3375 325 / 325 Nephrostomy Tube Left 600 / 600 625 / 625 Nephrostomy Tube Right 2975 / 2975 2750 / 2750 325 / 325 Other: Date of Last Bowel Movement 09/21/18 09/22/18 Physical Exam: CONSTITUTIONAL/GENERAL: This is an adequately nourished patient, in no apparent distress. TUBES/LINES/DRAINS: PIV, suprapubic catheter SKIN: No jaundice, rashes, or lesions. Skin warm/dry. ENT: Hearing grossly normal. Nose without bleeding or purulent drainage. oropharynx no erythema, exudates, or lesions. NECK: Trachea midline. Supple, nontender. No palpable thyroid enlargement or nodularity. CARDIOVASCULAR: Regular rate and rhythm without murmur . No JVD. Peripheral pulses symmetric. RESPIRATORY/CHEST: Symmetric, unlabored respirations. On room air. Clear to auscultation. Breath sounds equal bilaterally. GASTROINTESTINAL: Abdomen soft, non-tender, nondistended. No palpable masses. No guarding. Bowel sounds normoactive. GENITOURINARY: Without palpable bladder distension. Suprapubic catheter- red tinged urine. +nephrostomy tubes- straw colored urine MUSCULOSKELETAL: Extremities without clubbing, cyanosis, or edema. No joint tenderness or effusion noted. No calf tenderness. No mottling or clubbing. NEUROLOGICAL: initially sleeping though arouses easily, slightly lethargic following, though oriented x3. Motor and sensory grossly within normal limits. Follows commands. Cognitively sharp. Moves all 4 extremities. PSYCHIATRIC: No obvious anxiety/depression. quiet/flat Diagnostic Tests Laboratory: Laboratory Results - last 72 hr 09/22/18 09/23/18 09/23/18 05:10 06:05 10:25 WBC 9.1 RBC 2.69 L Hgb 8.6 L Hct 25.0 L MCV 92.8 MCH 32.1 MCHC 34.6 RDW 19.0 H Plt Count 293 MPV 6.6 L Sodium 138 Potassium 4.0 Chloride 107 Carbon Dioxide 15.6 L Anion Gap 15 BUN 66 H Creatinine 5.47 H Estimated GFR 10 L Random Glucose 98 Calcium 5.9 L* Prot Corrected Calcium 6.2 L* 6.3 L* Phosphorus Magnesium Total Bilirubin 0.3 AST 12 L ALT Less than 6 L Alkaline Phosphatase 106 Total Protein 6.4 6.3 L Albumin 1.8 L 09/24/18 09/24/18 09/25/18 09:09 09:09 06:59 WBC 10.0 10.5 RBC 2.68 L 2.87 L Hgb 8.7 L 9.2 L Hct 24.7 L 26.1 L MCV 92.0 90.8 MCH 32.4 32.1 MCHC 35.3 35.4 RDW 19.0 H 18.4 H Plt Count 339 338 MPV 7.0 7.1 Sodium 140 Potassium 3.3 L Chloride 105 Carbon Dioxide 20.3 L Anion Gap 15 BUN 61 H Creatinine 5.58 H Estimated GFR 10 L Random Glucose 118 H Calcium 5.8 L* Prot Corrected Calcium 6.0 L* Phosphorus 4.7 Magnesium 2.2 Total Bilirubin 0.3 AST 15 ALT Less than 6 L Alkaline Phosphatase 114 Total Protein 6.6 Albumin 1.9 L 09/25/18 06:59 WBC RBC Hgb Hct MCV MCH MCHC RDW Plt Count MPV Sodium 138 Potassium 2.8 L* Chloride 100 Carbon Dioxide 23.9 Anion Gap 14 BUN 57 H Creatinine 5.56 H Estimated GFR 10 L Random Glucose 129 H Calcium 6.0 L* Prot Corrected Calcium 6.1 L* Phosphorus 3.9 Magnesium 2.2 Total Bilirubin 0.4 AST 16 ALT Less than 6 L Alkaline Phosphatase 119 H Total Protein 6.9 Albumin 2.0 L Result Diagrams: 09/25/18 06:59 09/25/18 06:59 Microbiology: Microbiology 09/22/18 19:11 Aerobic Blood Culture - Final Blood - Peripheral S. aureus MRSA Anaerobic Blood Culture - Preliminary No growth in 3 days 09/22/18 19:06 Aerobic Blood Culture - Final Blood - Peripheral S. aureus MRSA Anaerobic Blood Culture - Preliminary No growth in 3 days 09/19/18 18:09 Aerobic Blood Culture - Final Blood - Peripheral No growth in 5 days Anaerobic Blood Culture - Final No growth in 5 days 09/19/18 18:15 Aerobic Blood Culture - Final Blood - Peripheral No growth in 5 days Anaerobic Blood Culture - Final S. aureus MRSA Procedures: 09/23/18 bilateral nephrostomy tubes Assessment and Plan - Disease Oriented Problem List (1) Acute UTI (2) Prostate cancer metastatic to bone (3) Acute on chronic kidney failure (4) Hypocalcemia Pertinent Non-Medical Issues: Psychosocial: for 30+ years and currently lives at home. The couple have one daughter together. 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 The patient loves the arts and attended art festivals yearly with his . Spiritual: none Legal: Living will completed. Patient's , Luba, is designated as the primary [facility] decision maker. Daughter, Mary, is the alternate healthcare surrogate decision-maker Ethical issues impacting care: Mo known ethical issues impacting care at this time Important Contacts: Luba Queen, /[facility] [phone] or [phone] Mary Queen, daughter/alternate [facility] [phone] Prognosis: Patient has a history of metastatic prostate cancer. In recent months his functional status has deteriorated, and he is requiring increased assistance with ADLs. He appears to have disease progression as multiple lesions were noted in the liver on recent PET/CT scan. Plan for liver biopsy to determine if the patient is a candidate for immunotherapy. Unfortunately, this patient is at high risk for further decline and mortality. If/when his medical treatment goals become comfort oriented, hospice would be an appropriate option for this patient. Code Status: Full Code Plan: * FULL CODE * Decision making: Mr. Queen is currently able to participate in medical decision making. Should his capacity change, his (Luba) is designated as the healthcare surrogate decision-maker. * Patient & elected to transition to comfort /hospice over this past weekend. Care center placement was requested to maximize pain control before returning back home. However, and pt now wish to complete IV abx for BC + MRSA, or at least continue while awaiting repeat BC. If no response will likely transition to hospice, however if BC negative (indicating response to ABX) they would like to continue IV antibiotics until completion before hospice enrollment . Pt, want improved pain relief while remaining in hospital setting, amenable to increase in fentanyl long-acting patch * Symptom management: Pain: Multifactoral. Patient has a known history of prostate cancer with multiple areas of bony metastasis. He appears to have disease progression to the liver; awaiting liver biopsy. He also reports severe episodic pain to the testicular region. Patient was started on PRN Dilaudid at admission, but the patient states he does not like the way it makes him feel. This was discontinued however it has since been resumed. He states his pain previously managed well with his home regimen that included fentanyl patch 25 mcg and Percocet 7.5/325 . + has Anusol HC TID for rectal pain. --Has been using about 2 doses 1 mg IV Dilaudid 8 which is equal to 40 oral morphine equivalents per day --Has been using about the Percocet 7.5's per day which is equal to 22.5mg = 31 oral morphine equivalents per day. TOTAL ORAL MORPHINE equivalents > 70 per day, fentanyl patch 25mcg= 60mg oral morphine. Given his PRN requirements would expect to tolerate increase to 50mcg fentanyl patch, pt and amenable to this increase. will increase fentanyl to 50mcg topical Q 3 days. cont other prns as currently ordered per pt request. Nausea: likely multifactorial. Patient reporting intermittent nausea , patient thought may have been related to receiving Dilaudid. Dilaudid had been discontinued, though is now resumed, prn Compazine available, effective per patient. * Palliative care will continue to follow this patient throughout his hospitalization to establish stress, assist with symptom management and clarification of medical treatment goals. * Palliative care contact information provided to the patient and his . Attestation Attestation: To help prompt me to consider important information that might be impacting today's encounter and assessment, information from prior notes written by myself or my colleagues may have been "brought forward" into today's note. My signature on this note, however, is an attestation that I personally performed the exam, history, and/or decision-making noted today, and, unless otherwise indicated, the interactions with patient, family, and staff as well as the review of records all occurred today. I also attest that the listed assessment and stated plan reflect my best clinical judgment today based on the combination of historical information, prior notes, and today's exam/ interactions. When time spent is documented, it refers only to time spent today by the signer, or if indicated, combined time spent today by collaborating physician/nurse practitioner.
[2018-09-25] MEDS: Collagenase Oint 30 GM Tube TOPICAL SCH (17:09)
[2018-09-25] MEDS: Gentamicin 0.1% Cream 15 GM Cream TOPICAL SCH (17:09)
[2018-09-25] MEDS: SODIUM CHLOR 0.9% IV.SIG SCH (17:10)
[2018-09-25] MEDS: DAPTOMYCIN IV.SIG SCH (17:10)
[2018-09-25] MEDS: Latanoprost 0.005% Opth Drops 2.5 ML Bottle EACH EYE SCH (22:47)
[2018-09-26 03:27] VITALS: RESP 18
[2018-09-26] MEDS: Sodium Bicarbonate 8.4% Inj 150 MEQ in Dextrose 5% in Water Inj 850 ML IV.CONT SCH ×2 (05:26)
[2018-09-26] MEDS: HYDROmorphone PF Inj 2 MG/ML Vial IV.PUSH PRN ×2 (07:00→15:18)
[2018-09-26 07:41] LABS: Alkaline Phosphatase 123 U/L (45-117); Anion Gap 13 meq/L (5-15); Aspartate Aminotransferase 16 U/L (15-37); Blood Urea Nitrogen 49 mg/dL (7-18); Carbon Dioxide 32.1 meq/L (21.0-32.0); Chloride 97 meq/L (98-107); Glomerular Filtration Rate 12 mL/min (>89); Glucose,Random 137 mg/dL (74-106); Magnesium 1.8 mg/dL (1.5-2.5); Phosphorus 3.3 mg/dL (2.5-4.9); Sodium 142 meq/L (136-145); Total Protein 6.9 g/dL (6.4-8.2)
[2018-09-26 08:00] LABS: Potassium 2.6 meq/L (3.5-5.1)
[2018-09-26 08:02] LABS: Mean Corpuscular HGB Conc 33.4 % (32.0-36.0); Mean Corpuscular Hemoglobin 30.8 pg (27.0-34.0); Mean Corpuscular Volume 92.1 fL (80.0-100.0); Mean Platelet Volume 7.2 fL (7.0-11.0); Platelet Count 341 th/mm3 (150-450); Red Blood Count 2.94 mil/mm3 (4.50-5.90); Red Cell Distribution Width 18.3 % (11.6-17.2); White Blood Count 11.3 th/mm3 (4.0-11.0)
[2018-09-26] MEDS: Tolterodine Tartrate LA 4 MG Capsule PO SCH (09:11)
[2018-09-26] MEDS: Calcium Carbonate 500 MG Tablet PO SCH (09:11)
[2018-09-26] MEDS: buPROPion 150 MG 12 HR Tablet PO SCH (09:11)
[2018-09-26] MEDS: Collagenase Oint 30 GM Tube TOPICAL SCH (09:12)
[2018-09-26] MEDS: Gentamicin 0.1% Cream 15 GM Cream TOPICAL SCH (09:12)
--- NOTE | 2018-09-26 10:53 | P.PNNP ---
Subjective Interval history: Patient was resting in bed, no distress, appeared weak. Patient's was at bedside. Patient's stated they were waiting on cultures to see if patient was going to Hospice and that she wanted to finish antibiotics. Patient has continued urine output via nephrostomies. No urine output via suprapubic cath. Creatinine has improved, 4.93. Patient remains hypocalcemic, patient is on calcium supplement. IV Sodium bicarbonate stopped 09/26, patient's CO2 is 32.1. Patient's K 2.6. Patient was given IV potassium 09/25. PO potassium was ordered 09/26. Patient had complaints of burning with IV potassium. <Cydney Adamson - Last Filed: 09/26/18 10:43> Physical Exam Vital signs: Vital Signs 09/25/18 12:00 09/25/18 13:09 09/25/18 16:00 Temperature 97.9 F Pulse Rate 78 67 66 Respiratory Rate 18 Blood Pressure 147/79 H Pulse Oximetry 95 09/25/18 17:51 09/25/18 19:36 09/25/18 20:07 Temperature 97.4 F L Pulse Rate 74 69 Respiratory Rate 18 18 Blood Pressure 169/93 H 155/81 H Pulse Oximetry 95 95 09/26/18 00:00 09/26/18 00:10 09/26/18 00:35 Temperature 97.9 F Pulse Rate 75 128 H 77 Respiratory Rate 16 Blood Pressure 187/89 H Pulse Oximetry 95 09/26/18 03:24 09/26/18 04:02 09/26/18 08:00 Temperature 98.4 F Pulse Rate 74 67 80 Respiratory Rate 18 Blood Pressure 166/78 H Pulse Oximetry 95 09/26/18 09:08 Temperature 97.7 F Pulse Rate 75 Respiratory Rate 18 Blood Pressure 156/95 H Pulse Oximetry 93 L Intake & Output 09/25/18 09/26/18 09/26/18 18:59 06:59 18:59 Intake Total 1480 / 1480 1930 / 1930 980 / 980 Output Total 3100 / 3100 5650 / 5650 Balance -1620 / -1620 -3720 / -3720 980 / 980 Weight 81.3 kg Intake: IV 1000 / 1000 1210 / 1210 500 / 500 Sodium Bicarbonate 8.4% Inj 150 1000 / 1000 1000 / 1000 500 / 500 MEQ In D5W Inj 850 ML @ 125 mls/hr IV.CONT .Q8H [facility] Rx#: [id number] Cubicin Inj 480 MG In NS Inj 100 / 100 100 ML @ 200 mls/hr IV.SIG Q48H [facility] Rx#:[id number] Rocephin Inj 1,000 MG In NS Inj 110 / 110 100 ML @ 200 mls/hr IV.SIG Q24H [facility] Rx#:[id number] Oral 480 / 480 720 / 720 480 / 480 Output: Urine Amount (Catheter) 125 / 125 200 / 200 Suprapubic 125 / 125 200 / 200 Urine Amount (Stoma) 2975 / 2975 5450 / 5450 Nephrostomy Tube Left 1200 / 1200 2500 / 2500 Nephrostomy Tube Right 1775 / 1775 2950 / 2950 Other: Date of Last Bowel Movement 09/22/18 09/22/18 09/21/18 - Constitutional no acute distress - Routine HEENT Exam Head: Present: normocephalic Eye: Present: EOMI, PERRL ENT: Present: mucous membranes moist - Routine Neck Exam Present: trachea midline. Absent: JVD, tracheal deviation - Routine Respiratory Exam Absent: accessory muscle use, respiratory distress - Routine Cardiovascular Exam Present: RRR - Routine Abdominal Exam Present: soft. Absent: tenderness - Routine Extremities Exam Absent: cyanosis, edema - Detailed Neurological Exam: Coma Scale Eye Opening: Spontaneous - Routine Psychiatric Exam Present: normal thought process - Urinary Catheter Management Suprapubic Cath placed during this visit: yes Reason for continuing: Acute urinary retention Insertion date: 09/20/18 Insertion time: 03:20 <Cydney Adamson - Last Filed: 09/26/18 10:43> Vital signs: Vital Signs 09/25/18 19:36 09/25/18 20:07 09/26/18 00:00 Temperature 97.9 F Pulse Rate 74 69 75 Respiratory Rate 18 16 Blood Pressure 155/81 H 187/89 H Pulse Oximetry 95 95 09/26/18 00:10 09/26/18 00:35 09/26/18 03:24 Temperature 98.4 F Pulse Rate 128 H 77 74 Respiratory Rate 18 Blood Pressure 166/78 H Pulse Oximetry 95 09/26/18 04:02 09/26/18 08:00 09/26/18 09:08 Temperature 97.7 F Pulse Rate 67 80 75 Respiratory Rate 18 Blood Pressure 156/95 H Pulse Oximetry 93 L 09/26/18 11:00 09/26/18 11:23 09/26/18 15:00 Temperature 97.6 F Pulse Rate 63 69 73 Respiratory Rate 18 Blood Pressure 141/80 H Pulse Oximetry 92 L 09/26/18 15:18 Temperature Pulse Rate 74 Respiratory Rate 18 Blood Pressure 149/81 H Pulse Oximetry 96 Intake & Output 09/25/18 09/26/18 09/26/18 18:59 06:59 18:59 Intake Total 1480 / 1480 1930 / 1930 980 / 980 Output Total 3100 / 3100 5650 / 5650 Balance -1620 / -1620 -3720 / -3720 980 / 980 Weight 81.3 kg Intake: IV 1000 / 1000 1210 / 1210 500 / 500 Sodium Bicarbonate 8.4% Inj 150 1000 / 1000 1000 / 1000 500 / 500 MEQ In D5W Inj 850 ML @ 125 mls/hr IV.CONT .Q8H [facility] Rx#: [id number] Cubicin Inj 480 MG In NS Inj 100 / 100 100 ML @ 200 mls/hr IV.SIG Q48H [facility] Rx#:[id number] Rocephin Inj 1,000 MG In NS Inj 110 / 110 100 ML @ 200 mls/hr IV.SIG Q24H [facility] Rx#:[id number] Oral 480 / 480 720 / 720 480 / 480 Output: Urine Amount (Catheter) 125 / 125 200 / 200 Suprapubic 125 / 125 200 / 200 Urine Amount (Stoma) 2975 / 2975 5450 / 5450 Nephrostomy Tube Left 1200 / 1200 2500 / 2500 Nephrostomy Tube Right 1775 / 1775 2950 / 2950 Other: Date of Last Bowel Movement 09/22/18 09/22/18 09/21/18 - Urinary Catheter Management Suprapubic Cath placed during this visit: no <Juan Ortega - Last Filed: 09/26/18 18:25> Assessment and Plan - Assessment (1) Acute on chronic kidney failure Code(s): N17.9 - Acute kidney failure, unspecified; N18.9 - Chronic kidney disease, unspecified Status: Acute Plan: Acute on chronic kidney disease could be due to blockage of suprapubic catheter due to clotted blood/debris etc. Patient had renal ultrasound done on 09/19/18 which showed bilateral hydronephrosis. Suprapubic catheter had a history of blockage and was changed on admission. Patient had bilateral percutaneous nephrostomy 09/22/18. Continued urine output via nephrostomies. No urine output via suprapubic cath. Creatinine has improved, 4.93. Patient remains hypocalcemic, patient is on calcium supplement. Bicarb stopped 09/26, patient's CO2 is 32.1. Patient's K 2.6. Patient was given IV potassium 09/25. PO potassium was ordered 09/26. Patient discharge to Hospice pending. (2) Acute UTI Code(s): N39.0 - Urinary tract infection, site not specified Status: Acute Plan: Patient on Ceftriaxone. (3) Prostate cancer metastatic to bone Code(s): C61 - Malignant neoplasm of prostate; C79.51 - Secondary malignant neoplasm of bone Status: Acute Plan: As per reviewing previous documentation, the patient's and patient were concerned about getting a liver biopsy to see if the patient was a candidate for immunotherapy. Oncology consulted. Patient decided to consult Hospice. - Plan follow goals of care with oncology <Cydney Adamson - Last Filed: 09/26/18 10:43> - Assessment (1) Acute on chronic kidney failure Code(s): N17.9 - Acute kidney failure, unspecified; N18.9 - Chronic kidney disease, unspecified Status: Acute (2) Acute UTI Code(s): N39.0 - Urinary tract infection, site not specified Status: Acute (3) Prostate cancer metastatic to bone Code(s): C61 - Malignant neoplasm of prostate; C79.51 - Secondary malignant neoplasm of bone Status: Acute - Attending Attestation patient was seen and examined. Renal function is slightly better. Discontinued bicarbonate drip. Replace potassium. <Juan Ortega - Last Filed: 09/26/18 18:25>
[2018-09-26 11:25] VITALS: TEMP 97.6
--- NOTE | 2018-09-26 11:28 | P.PNID ---
Subjective Remarks: Patient is very somnolent and lethargic. Received pain medicine and also Compazine. notes that he was complaining of testicular pain. Afebrile. Repeat blood culture from 09/22 has MRSA Repeat blood culture from 09/25 has no growth in 1 day. Patient is post bilateral nephrostomy tube placement. This is a 73-year-old white male who has known history of metastatic prostate cancer. The patient presented to the emergency department on 09/19/2018 with weakness. The patient's noted that he became very weak on the day prior to presenting to the emergency department. It is also reported that he had cloudiness of the urine from the suprapubic catheter. Past Medical History: PAST MEDICAL HISTORY: Hepatitis B, hypertension, kidney disease, metastatic prostate cancer with metastasis to bone and now suspected liver, chronic suprapubic catheter, history of cholecystectomy, history of hip replacement, history of vasectomy. Allergies/Adverse Reactions: Allergies morphine Allergy (Severe, Verified 08/19/18 11:17) MORPHINE ALLERGY ADDED 12/19/07 @1500 - N/V Objective Vital Signs 09/25/18 12:00 09/25/18 13:09 09/25/18 16:00 Temperature 97.9 F Pulse Rate 78 67 66 Respiratory Rate 18 Blood Pressure 147/79 H Pulse Oximetry 95 09/25/18 17:51 09/25/18 19:36 09/25/18 20:07 Temperature 97.4 F L Pulse Rate 74 69 Respiratory Rate 18 18 Blood Pressure 169/93 H 155/81 H Pulse Oximetry 95 95 09/26/18 00:00 09/26/18 00:10 09/26/18 00:35 Temperature 97.9 F Pulse Rate 75 128 H 77 Respiratory Rate 16 Blood Pressure 187/89 H Pulse Oximetry 95 09/26/18 03:24 09/26/18 04:02 09/26/18 08:00 Temperature 98.4 F Pulse Rate 74 67 80 Respiratory Rate 18 Blood Pressure 166/78 H Pulse Oximetry 95 09/26/18 09:08 09/26/18 11:00 Temperature 97.7 F Pulse Rate 75 63 Respiratory Rate 18 Blood Pressure 156/95 H Pulse Oximetry 93 L Intake & Output 09/25/18 09/26/18 09/26/18 18:59 06:59 18:59 Intake Total 1480 / 1480 1930 / 1930 980 / 980 Output Total 3100 / 3100 5650 / 5650 Balance -1620 / -1620 -3720 / -3720 980 / 980 Weight 81.3 kg Intake: IV 1000 / 1000 1210 / 1210 500 / 500 Sodium Bicarbonate 8.4% Inj 150 1000 / 1000 1000 / 1000 500 / 500 MEQ In D5W Inj 850 ML @ 125 mls/hr IV.CONT .Q8H [facility] Rx#: [id number] Cubicin Inj 480 MG In NS Inj 100 / 100 100 ML @ 200 mls/hr IV.SIG Q48H [facility] Rx#:[id number] Rocephin Inj 1,000 MG In NS Inj 110 / 110 100 ML @ 200 mls/hr IV.SIG Q24H [facility] Rx#:[id number] Oral 480 / 480 720 / 720 480 / 480 Output: Urine Amount (Catheter) 125 / 125 200 / 200 Suprapubic 125 / 125 200 / 200 Urine Amount (Stoma) 2975 / 2975 5450 / 5450 Nephrostomy Tube Left 1200 / 1200 2500 / 2500 Nephrostomy Tube Right 1775 / 1775 2950 / 2950 Other: Date of Last Bowel Movement 09/22/18 09/22/18 09/21/18 09/25/18 10:18 Blood - Peripheral Aerobic Blood Culture - Preliminary No growth in 1 day 09/25/18 10:18 Blood - Peripheral Anaerobic Blood Culture - Preliminary No growth in 1 day 09/25/18 10:13 Blood - Peripheral Aerobic Blood Culture - Preliminary No growth in 1 day 09/25/18 10:13 Blood - Peripheral Anaerobic Blood Culture - Preliminary No growth in 1 day 09/22/18 19:11 Blood - Peripheral Aerobic Blood Culture - Final S. aureus MRSA 09/22/18 19:11 Blood - Peripheral Anaerobic Blood Culture - Preliminary No growth in 4 days 09/22/18 19:06 Blood - Peripheral Aerobic Blood Culture - Final S. aureus MRSA 09/22/18 19:06 Blood - Peripheral Anaerobic Blood Culture - Preliminary No growth in 4 days 09/19/18 18:09 Blood - Peripheral Aerobic Blood Culture - Final No growth in 5 days 09/19/18 18:09 Blood - Peripheral Anaerobic Blood Culture - Final No growth in 5 days 09/19/18 18:15 Blood - Peripheral Aerobic Blood Culture - Final No growth in 5 days 09/19/18 18:15 Blood - Peripheral Anaerobic Blood Culture - Final S. aureus MRSA Lab - Hematology Results 09/25/18 09/26/18 06:59 06:18 WBC 10.5 11.3 H RBC 2.87 L 2.94 L Hgb 9.2 L 9.0 L Hct 26.1 L 27.0 L MCV 90.8 92.1 MCH 32.1 30.8 MCHC 35.4 33.4 RDW 18.4 H 18.3 H Plt Count 338 341 MPV 7.1 7.2 Lab - Chemistry Results 09/25/18 09/26/18 06:59 06:18 Sodium 138 142 Potassium 2.8 L* 2.6 L* Chloride 100 97 L Carbon Dioxide 23.9 32.1 H Anion Gap 14 13 BUN 57 H 49 H Creatinine 5.56 H 4.93 H Estimated GFR 10 L 12 L Random Glucose 129 H 137 H Calcium 6.0 L* 6.0 L* Prot Corrected Calcium 6.1 L* 6.1 L* Phosphorus 3.9 3.3 Magnesium 2.2 1.8 Total Bilirubin 0.4 0.3 AST 16 16 ALT Less than 6 L Less than 6 L Alkaline Phosphatase 119 H 123 H Total Protein 6.9 6.9 Albumin 2.0 L 2.0 L Imaging: ITS Impressions Abdomen/Bladder Ultrasound 09/19/18 00:00 CONCLUSION: Moderate bilateral hydronephrosis. Drainage Catheter Insertion 09/22/18 00:00 CONCLUSION: 1. Uncomplicated nephroureteral stent placement as above. Physical Exam: PHYSICAL EXAMINATION: GENERAL: Patient is lethargic. HEENT: Head is atraumatic. No icterus. Oropharynx moist mucosa without lesions. NECK: Supple without adenopathy. LUNGS: Decreased breath sounds. HEART: Regular S1 and S2. No murmurs, rubs or gallops. ABDOMEN: Bowel sounds present, soft. Bilateral nephrostomy tube in place. Functioning. Clear urine. SKIN: No rash. NEUROLOGIC: Nonfocal. PSYCHIATRIC: Calm and cooperative. Assessment and Plan - Plan IMPRESSION: 1. Bacteremia due to methicillin-resistant Staphylococcus aureus originating from the urine. Patient has persistently positive blood cultures. 2. Urinary tract infection due to MRSA. Bilateral hydronephrosis. Both nephrostomy tubes x2. 3. Metastatic prostate cancer. 4. Acute kidney disease. RECOMMENDATIONS: 1. Continue Daptomycin. 2. Continue ceftriaxone. 3. Follow blood cultures. 4. Monitor clinical status. Patient's notes that she wants to wait another day or 2 for the blood cultures and if they are negative On day #3 elect to transition to hospice care. She may decide to go with hospice despite the blood cultures being positive. However she feels more comfortable doing so with negative blood culture.
--- NOTE | 2018-09-26 11:57 | P.PNPAL ---
Reason for Visit Reason for visit: a. To assist with evaluation and management of symptoms including: Pain, nausea b. To assist medical decision maker(s) with: better understanding of current medical conditions; weighing benefits/burdens of medical treatment options; making medical treatment decisions. Subjective Subjective/Interval History: Palliative initially following to assist with pain recommendations, pain well controlled for the most part last week. pt planned for hospice enrollment for metastatic prostate cancer, with plans for care center placement initially for pain, and then hoped to transition home with hospice services. ID following, pt currently receiving IV antibiotics for MRSA positive cultures, and discussed with patient and that pending repeat blood culture if negative would recommend completing course for another 10 days to improve outcomes. On the other hand cultures continue to be positive might consider hospice and discontinuation of antibiotics as it would then be less likely that he would recover even with antibiotics. Repeat blood cultures sent 09/25, no growth x1 day. Potassium continues to down trend 2.6, Repletion per medical attending. BUN and creatinine remain elevated 49/4.93. Bilateral nephrostomy is in place since 09/22/18. Patient seen in room present. He is sleeping though arouses some, is oriented, weak. Dr Gamez ID just completing visit- he is updating /pt. We all further discussed that pt condition overall cont to decline even with antibiotics, not clear he may have additional benefit from full 10day abx. wishes to re-evaluate tomorrow morning for possible d/c abx and transition home with hospice. Review w her, pt, symptoms of pain, nausea. He has cont to have intermittent nausea somewhat relieved w compazine. He endorses overall pain better than yesterday however still with sharp breakthrough pain to testicles. He feels weaker. No appetite, has eaten sips/bites for past 2 days. Exploration balance of pain relief/sedation, and that fentanyl increase may be contributing to tiredness but likely he is also declining 2/2 to disease process. They do not want to decrease pain medication, they feel he is getting some relief. is worried that he will not get home, expresses their goal was home together for a peaceful at home. She requests re-eval by hospice tomorrow am for transition HOME with HOSPICE, and NOT to a care center. Pt endorses he is "ready to go home" , they discuss possible home today with hospice. Daughter arriving in the next hour-- they will discuss as a family and notify Me of any changes of plans today otherwise I will plan to f/up with them around 1030 am tomorrow with the tentative plan home with hospice tomorrow. d/w primary nurse, ID, and medical attending Dr Hays. Advance Directives Health Care Surrogate Name and Number: Luba Queen, Documented care wishes:: The patient has a living will that states in the presence of a terminal condition, end-state condition, or persistent vegetative state he wishes for life-prolonging procedures be withheld and withdrawn including but not limited to surgery, antibiotics, CPR, and artificially administered feeding and IVF. Objective Vital Signs: Vital Signs 09/25/18 12:00 09/25/18 13:09 09/25/18 16:00 Temperature 97.9 F Pulse Rate 78 67 66 Respiratory Rate 18 Blood Pressure 147/79 H Pulse Oximetry 95 09/25/18 17:51 09/25/18 19:36 09/25/18 20:07 Temperature 97.4 F L Pulse Rate 74 69 Respiratory Rate 18 18 Blood Pressure 169/93 H 155/81 H Pulse Oximetry 95 95 09/26/18 00:00 09/26/18 00:10 09/26/18 00:35 Temperature 97.9 F Pulse Rate 75 128 H 77 Respiratory Rate 16 Blood Pressure 187/89 H Pulse Oximetry 95 09/26/18 03:24 09/26/18 04:02 09/26/18 08:00 Temperature 98.4 F Pulse Rate 74 67 80 Respiratory Rate 18 Blood Pressure 166/78 H Pulse Oximetry 95 09/26/18 09:08 09/26/18 11:00 09/26/18 11:23 Temperature 97.7 F 97.6 F Pulse Rate 75 63 69 Respiratory Rate 18 18 Blood Pressure 156/95 H 141/80 H Pulse Oximetry 93 L 92 L Intake & Output 09/25/18 09/26/18 09/26/18 18:59 06:59 18:59 Intake Total 1480 / 1480 1930 / 1930 980 / 980 Output Total 3100 / 3100 5650 / 5650 Balance -1620 / -1620 -3720 / -3720 980 / 980 Weight 81.3 kg Intake: IV 1000 / 1000 1210 / 1210 500 / 500 Sodium Bicarbonate 8.4% Inj 150 1000 / 1000 1000 / 1000 500 / 500 MEQ In D5W Inj 850 ML @ 125 mls/hr IV.CONT .Q8H [facility] Rx#: [id number] Cubicin Inj 480 MG In NS Inj 100 / 100 100 ML @ 200 mls/hr IV.SIG Q48H [facility] Rx#:[id number] Rocephin Inj 1,000 MG In NS Inj 110 / 110 100 ML @ 200 mls/hr IV.SIG Q24H [facility] Rx#:[id number] Oral 480 / 480 720 / 720 480 / 480 Output: Urine Amount (Catheter) 125 / 125 200 / 200 Suprapubic 125 / 125 200 / 200 Urine Amount (Stoma) 2975 / 2975 5450 / 5450 Nephrostomy Tube Left 1200 / 1200 2500 / 2500 Nephrostomy Tube Right 1775 / 1775 2950 / 2950 Other: Date of Last Bowel Movement 09/22/18 09/22/18 09/21/18 Physical Exam: CONSTITUTIONAL/GENERAL: This is an adequately nourished patient,thin, tired. TUBES/LINES/DRAINS: PIV, suprapubic catheter SKIN: No jaundice, rashes, or lesions. Skin warm/dry. ENT: Hearing grossly normal. Nose without bleeding or purulent drainage. oropharynx no erythema, exudates, or lesions. NECK: Trachea midline. Supple, nontender. No palpable thyroid enlargement or nodularity. CARDIOVASCULAR: Regular rate and rhythm without murmur . No JVD. Peripheral pulses symmetric. RESPIRATORY/CHEST: Symmetric, unlabored ,respirations. On room air. Clear to auscultation, decreased air to bases. Breath sounds equal bilaterally. GASTROINTESTINAL: Abdomen soft, non-tender, nondistended. No palpable masses. No guarding. Bowel sounds hypoactive. GENITOURINARY: Without palpable bladder distension. Suprapubic catheter- red tinged urine, +dark clots noted. +nephrostomy tubes- straw colored urine MUSCULOSKELETAL: Extremities without clubbing, cyanosis, or edema. No joint tenderness or effusion noted. No calf tenderness. No mottling or clubbing. NEUROLOGICAL: initially sleeping though arouses easily, slightly lethargic , though oriented x3. Motor and sensory grossly within normal limits. Follows commands. Moves all 4 extremities weakly. PSYCHIATRIC: No obvious anxiety/depression. quiet/flat Diagnostic Tests Laboratory: Laboratory Results - last 72 hr 09/24/18 09/24/18 09/25/18 09:09 09:09 06:59 WBC 10.0 10.5 RBC 2.68 L 2.87 L Hgb 8.7 L 9.2 L Hct 24.7 L 26.1 L MCV 92.0 90.8 MCH 32.4 32.1 MCHC 35.3 35.4 RDW 19.0 H 18.4 H Plt Count 339 338 MPV 7.0 7.1 Sodium 140 Potassium 3.3 L Chloride 105 Carbon Dioxide 20.3 L Anion Gap 15 BUN 61 H Creatinine 5.58 H Estimated GFR 10 L Random Glucose 118 H Calcium 5.8 L* Prot Corrected Calcium 6.0 L* Phosphorus 4.7 Magnesium 2.2 Total Bilirubin 0.3 AST 15 ALT Less than 6 L Alkaline Phosphatase 114 Total Protein 6.6 Albumin 1.9 L 09/25/18 09/26/18 09/26/18 06:59 06:18 06:18 WBC 11.3 H RBC 2.94 L Hgb 9.0 L Hct 27.0 L MCV 92.1 MCH 30.8 MCHC 33.4 RDW 18.3 H Plt Count 341 MPV 7.2 Sodium 138 142 Potassium 2.8 L* 2.6 L* Chloride 100 97 L Carbon Dioxide 23.9 32.1 H Anion Gap 14 13 BUN 57 H 49 H Creatinine 5.56 H 4.93 H Estimated GFR 10 L 12 L Random Glucose 129 H 137 H Calcium 6.0 L* 6.0 L* Prot Corrected Calcium 6.1 L* 6.1 L* Phosphorus 3.9 3.3 Magnesium 2.2 1.8 Total Bilirubin 0.4 0.3 AST 16 16 ALT Less than 6 L Less than 6 L Alkaline Phosphatase 119 H 123 H Total Protein 6.9 6.9 Albumin 2.0 L 2.0 L Result Diagrams: 09/26/18 06:18 09/26/18 06:18 Microbiology: Microbiology 09/25/18 10:18 Aerobic Blood Culture - Preliminary Blood - Peripheral No growth in 1 day Anaerobic Blood Culture - Preliminary No growth in 1 day 09/25/18 10:13 Aerobic Blood Culture - Preliminary Blood - Peripheral No growth in 1 day Anaerobic Blood Culture - Preliminary No growth in 1 day 09/22/18 19:11 Aerobic Blood Culture - Final Blood - Peripheral S. aureus MRSA Anaerobic Blood Culture - Preliminary No growth in 4 days 09/22/18 19:06 Aerobic Blood Culture - Final Blood - Peripheral S. aureus MRSA Anaerobic Blood Culture - Preliminary No growth in 4 days 09/19/18 18:09 Aerobic Blood Culture - Final Blood - Peripheral No growth in 5 days Anaerobic Blood Culture - Final No growth in 5 days 09/19/18 18:15 Aerobic Blood Culture - Final Blood - Peripheral No growth in 5 days Anaerobic Blood Culture - Final S. aureus MRSA Procedures: 09/23/18 bilateral nephrostomy tubes Assessment and Plan - Disease Oriented Problem List (1) Acute UTI (2) Prostate cancer metastatic to bone (3) Acute on chronic kidney failure (4) Hypocalcemia Pertinent Non-Medical Issues: Psychosocial: for 30+ years and currently lives at home. The couple have one daughter together. 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 The patient loves the arts and attended art festivals yearly with his . Spiritual: none Legal: Living will completed. Patient's , Luba, is designated as the primary [facility] decision maker. Daughter, Mary, is the alternate healthcare surrogate decision-maker Ethical issues impacting care: Mo known ethical issues impacting care at this time Important Contacts: Luba Queen, /[facility] [phone] or [phone] Mary Queen, daughter/alternate [facility] [phone] Prognosis: Patient has a history of metastatic prostate cancer. In recent months his functional status has deteriorated, and he is requiring increased assistance with ADLs. He appears to have disease progression as multiple lesions were noted in the liver on recent PET/CT scan. Plan for liver biopsy to determine if the patient is a candidate for immunotherapy. Unfortunately, this patient is at high risk for further decline and mortality. If/when his medical treatment goals become comfort oriented, hospice would be an appropriate option for this patient. Code Status: Full Code Plan: * FULL CODE * Decision making: Mr. Queen is currently able to participate in medical decision making. Should his capacity change, his (Luba) is designated as the healthcare surrogate decision-maker. * Patient & elected to transition to comfort /hospice over this past weekend. Care center placement was requested to maximize pain control before returning back home. However, and pt now wish to complete IV abx for BC + MRSA, or at least continue while awaiting repeat BC. If no response will likely transition to hospice, however if BC negative (indicating response to ABX) they would like to continue IV antibiotics until completion before hospice enrollment. Pt, want improved pain relief while remaining in hospital setting, amenable to increase in fentanyl long-acting patch 09/26/18 -- Pt declining, increased weakness/lethargy. Comfort oriented goals-- considering stopping abx tomorrow if decline continues, and home with hospice 09/27/18, although they are also going to discuss possibly home with hospice later today. Still with some pain, does not want to decrease pain meds, wants to cont current PRNs. * Symptom management: Pain: Multifactorial. Patient has a known history of prostate cancer with multiple areas of bony metastasis. He appears to have disease progression to the liver; awaiting liver biopsy. He also reports severe episodic pain to the testicular region. Patient was started on PRN Dilaudid at admission, but the patient states he does not like the way it makes him feel. This was discontinued however it has since been resumed. He states his pain previously managed well with his home regimen that included fentanyl patch 25 mcg and Percocet 7.5/325 . + has Anusol HC TID for rectal pain. --Has been using about 2 doses 1 mg IV Dilaudid 8 which is equal to 40 oral morphine equivalents per day --Has been using about the Percocet 7.5's per day which is equal to 22.5mg = 31 oral morphine equivalents per day. TOTAL ORAL MORPHINE equivalents > 70 per day, fentanyl patch 25mcg= 60mg oral morphine. Given his PRN requirements would expect to tolerate increase to 50mcg fentanyl patch, pt and amenable to this increase. 09/25/18 increased fentanyl to 50mcg topical Q 3 days. cont other prns as currently ordered per pt request. Overall pain better per pt today 09/26, though still w sharp breakthrough testicular pain episodes. Used PRN dilaudid 1mg x1 today, percocet x2 today. Nausea: likely multifactorial. Patient reporting intermittent nausea , patient thought may have been related to receiving Dilaudid. Dilaudid had been discontinued, though is now resumed, prn Compazine available, effective per patient. * Palliative care will continue to follow this patient throughout his hospitalization to establish stress, assist with symptom management and clarification of medical treatment goals. * Palliative care contact information provided to the patient and his . Attestation Attestation: To help prompt me to consider important information that might be impacting today's encounter and assessment, information from prior notes written by myself or my colleagues may have been "brought forward" into today's note. My signature on this note, however, is an attestation that I personally performed the exam, history, and/or decision-making noted today, and, unless otherwise indicated, the interactions with patient, family, and staff as well as the review of records all occurred today. I also attest that the listed assessment and stated plan reflect my best clinical judgment today based on the combination of historical information, prior notes, and today's exam/ interactions. When time spent is documented, it refers only to time spent today by the signer, or if indicated, combined time spent today by collaborating physician/nurse practitioner.
[2018-09-26 15:18] VITALS: BP 149/81; PULSE 74; O2SAT 96
== END 2018-09-26 18:04 | disposition hospice, home (50) ==
LOC: NEPC 17:20 → NEDA 20:09 → HCIN 09-20 01:22
PROVIDERS: ADMIT Hospitalist; ATTEND Hospitalist